=== PATIENT | female | born 1950 | race Caucasian/White ===

== ENCOUNTER 2022-11-02 08:59 | Outpatient (OUT) | payer MEDICARE, SELFPAY ==
--- NOTE | 2022-11-02 09:12 | XR_ITS ---
The [address] [address] Patient Name: SHERRI DUNN MRN: [id number] date: 1950 Sex: F Assigned Patient Location: MAMMO Current Patient Location: [facility] Accession/Order Number: [id number] Exam Date: 11/02/2022 09:29 Report Date: 11/02/2022 13:53 At the request of: SHAIKH VINCE Procedure: XR hip RT min 2V PROCEDURE: XR hip RT min 2V HISTORY: Right Hip Pain, M25.551 ; chronic low back and right hip pain which has increased in severity COMPARISON: None. FINDINGS: BONES:Mild articular surface irregularity of the acetabulum and mild sclerosis without significant joint space narrowing. Small degenerative osteophyte along superior rim of acetabulum, with large degenerative osteophyte along inferior rim. Unremarkable femoral head and proximal femur. SOFT TISSUES:No visible soft tissue swelling. EFFUSION:None visible. OTHER: Negative. IMPRESSION: 1. Degenerative changes of the right hip joint. Electronically authenticated by: RAAD MEADOWS Date: 11/02/2022 13:53
--- NOTE | 2022-11-02 09:12 | MM_ITS ---
Patient: SHERRI DUNN Exam Date: 11/02/2022 : 1950 Gender:F Ordering : Shaikh Denise Ramirez . Admission #: [id number] Family : Order #: [id number] CLICK HERE TO VIEW EXAM RADIOLOGY REPORT PROCEDURE: MM TOMOSYNTHESIS SCREENING BI COMPARISON: MG MAMM SCREEN 3D TERESA CAD, 10/27/2021. INDICATIONS: Screening Calculator Name NCI Breast Cancer Risk Assessment Tool 5 Year Breast Cancer Risk 1.30% Lifetime Breast Cancer Risk 3.50% Personal Breast Cancer No Personal Ovarian Cancer No Treatments None Family Cancers None LOCATION: The [facility] BREAST COMPOSITION: Scattered areas fibroglandular density. FINDINGS: DIAGNOSTIC CATEGORY 2--BENIGN FINDING: RIGHT BREAST: No significant suspicious finding. Scattered benign-appearing calcifications are present. Scattered benign-appearing lymph nodes are present. No significant change has occurred. LEFT BREAST: No significant suspicious finding. Scattered benign-appearing calcifications are present. Scattered benign-appearing lymph nodes are present. No significant change has occurred. RECOMMENDATIONS: ROUTINE MAMMOGRAM AND CLINICAL EVALUATION IN 12 MONTHS. PLEASE NOTE: A NORMAL MAMMOGRAM DOES NOT EXCLUDE THE POSSIBILITY OF BREAST CANCER. A CLINICALLY SUSPICIOUS PALPABLE LUMP SHOULD BE BIOPSIED. Dictated by: Clyde Lazcano M.D. on 11/02/2022 at 12:53 Approved by: Clyde Lazcano M.D. on 11/02/2022 at 13:00
--- NOTE | 2022-11-02 09:12 | XR_ITS ---
The [address] [address] Patient Name: SHERRI DUNN MRN: [id number] date: 1950 Sex: F Assigned Patient Location: MAMMO Current Patient Location: MAMM Accession/Order Number: [id number] Exam Date: 11/02/2022 09:29 Report Date: 11/02/2022 11:06 At the request of: SHAIKH VINCE Procedure: XR lumbar spine 2-3V EXAM: XR lumbar spine 2-3V HISTORY: Low Back Pain, M54.50 COMPARISON: None. TECHNIQUE: 3 views Findings/impression: Anterolisthesis of L5 over S1 by 6 m with probable pars defect. Maintained vertebral body heights. Multilevel disc space disease and endplate degenerative changes. Nonobstructive bowel gas pattern. Electronically authenticated by: SEJAL MAGALLON Date: 11/02/2022 11:06
[2022-11-02 10:51] LABS: Alanine Aminotransferase 23 U/L (14-59); Albumin Level 3.3 g/dL (3.4-5.0); Alkaline Phosphatase 79 U/L (46-116); Anion Gap 11.7; Aspartate Amino Transferase 13 U/L (15-37); BUN Creatinine Ratio 11.5; Bilirubin Total 0.4 mg/dL (0.2-1.0); Calcium 9.2 mg/dL (8.5-10.1); Carbon Dioxide 27.6 mmol/L (21.0-32.0); Chloride 104 mmol/L (98-107); Cholesterol 144 mg/dL (<=200); Estimated GFR (African America >60 (>=60); Estimated GFR (Non-African Ame >60 (>=60); Globulin 3.4 g/dL; Glucose 93 mg/dL (74-106); HDL Cholesterol 48 mg/dL (40-60); LDL Cholesterol Calculated 76.8 mg/dL; Potassium 4.3 mmol/L (3.5-5.1); Sodium 139 mmol/L (136-145); Total Protein 6.7 g/dL (6.4-8.2); Triglycerides 96 mg/dL (<=150); VLDL CHOLESTEROL 19.2 mg/dL
[2022-11-02 11:27] LABS: Basophils Percent Auto 0.4 % (0.2-2.0); Eosinophils Absolute Auto 0.1 10^3/uL (0.0-0.7); Eosinophils Percent Auto 1.4 % (0.9-7.0); Hematocrit 40.6 % (36.0-48.0); Hemoglobin 13.6 g/dL (12.0-16.0); Immature Granulocytes Abs Auto 0.02 10^3/uL (0.00-0.03); Immature Granulocytes Pct Auto 0.3 % (0.0-0.5); Lymphocytes Absolute Auto 2.1 10^3/uL (1.2-3.8); Lymphocytes Percent Auto 26.6 % (20.5-60.0); Mean Corpuscular HGB Conc 33.5 g/dL (29.9-35.2); Mean Corpuscular Hemoglobin 30.7 pg (26.7-34.0); Mean Corpuscular Volume 91.6 fL (81.0-99.0); Mean Platelet Volume 11.4 fL (9.5-13.5); Monocytes Absolute Auto 0.5 10^3/uL (0.3-0.8); Monocytes Percent Auto 6.2 % (1.7-12.0); Neutrophils Absolute Auto 5.1 10^3/uL (1.4-6.5); Neutrophils Percent Auto 65.1 % (43.0-75.0); Platelet Count 239 10^3/uL (150-450); Red Blood Count 4.43 10^6/uL (4.20-5.40); Red Cell Distribution Width 13.7 % (11.0-15.0); White Blood Count 7.9 10^3/uL (4.0-11.0)
== END 2022-11-02 09:00 ==
LOC: MAMMO 09:04
PROVIDERS: PCP Internal Medicine; Visit Provider Internal Medicine
DX: Z12.31 Encounter for screening mammogram for malignant neoplasm of breast (principal); M25.551 Pain in right hip; M54.50 Low back pain, unspecified; I10 Essential (primary) hypertension; E78.5 Hyperlipidemia, unspecified; G25.81 Restless legs syndrome; G25.3 Myoclonus
CPT/HCPCS: 36415; 72100; 73502; 77063; 77067; 80053; 80061; 82728; 85025

== ENCOUNTER 2022-11-16 14:46 | Outpatient (RCR) | payer MEDICARE, SELFPAY | END 2022-12-03 11:08 | disposition home or self-care (01) | LOC: PT 14:46 | PROVIDERS: PCP Internal Medicine; Visit Provider Internal Medicine | DX: M54.50 Low back pain, unspecified (principal) | CPT/HCPCS: 97110; 97140; 97161 ==

== ENCOUNTER 2022-11-29 10:01 | Emergency (ER) | payer MEDICARE, SELFPAY ==
[2022-11-29 10:06] VITALS: BP 122/83; PULSE 76; RESP 18; TEMP 36.7; O2SAT 96; BMI 25.6
--- NOTE | 2022-11-29 10:19 | PC.NURSE ---
pt states she was working by her shed last week and thinks she got into a spider nest and had multiple bites to her hands and feet. pt states taking Benadryl with no relief. bilateral hands and feet appear red. pt states hands and feet are itching and painful
--- NOTE | 2022-11-29 10:34 | ED_ITS ---
HPI - General Adult General Chief complaint: Skin/Abscess/Foreign Body Stated complaint: SPIDER BITE Time Seen by Provider: 11/29/22 10:27 Source: patient Mode of arrival: walk-in History of Present Illness HPI narrative: patient here for evaluation of a skin rash. She says she's had well over a week. Involves only her hands palmar and dorsal surface and her feet again the dorsal and plantar surface. Does not have any other rash any place on her body. She has no sores inside her mouth or lips or tongue. She doesn't feel sick. She doesn't have fever aches pains chills or arthralgias. She says these itch terribly. She said she had same thing happen about a year or so ago when she was bitten by a spider. She does not have a specific event of being bit by a spider this time but that's what she thinks it is. Related Data Allergies Allergy/AdvReac Type Severity Reaction Status Date / Time codeine AdvReac Severe Verified 11/29/22 10:10 Penicillins AdvReac Severe Verified 11/29/22 10:10 PFSH PFS Social History Smoking status: Current every day smoker Exam Narrative Exam Narrative: well-hydrated no well-nourished does not appear ill vital signs are stable. Problem focus examination the skin as noted below under extremity Constitutional Vital Signs - 24 hr 11/29/22 10:06 Temperature 98.0 F Pulse Rate [Monitor] 76 Respiratory Rate 18 Blood Pressure [Right Arm] 122/83 H Pulse Oximetry 96 Oxygen Delivery Method Room Air Extremity Other: on both the top and bottom of both hands and both feet there is an erythematous irregular defined asymmetrically distributed non-raised, blanching, nontender rash. There is no petechiae or purpura. There is no evidence of cellulitis or skin infection. There is no target lesions. All these areas as I said are nontender and not raised and blanching. Course Vital Signs Vital signs: Vital Signs Temperature 98.0 F 11/29/22 10:06 Pulse Rate 76 11/29/22 10:06 Respiratory Rate 18 11/29/22 10:06 Blood Pressure 122/83 H 11/29/22 10:06 Pulse Oximetry 96 11/29/22 10:06 Oxygen Delivery Method Room Air 11/29/22 10:06 Temperature 98.0 F 11/29/22 10:06 Pulse Rate 76 11/29/22 10:06 Respiratory Rate 18 11/29/22 10:06 Blood Pressure 122/83 H 11/29/22 10:06 Pulse Oximetry 96 11/29/22 10:06 Oxygen Delivery Method Room Air 11/29/22 10:06 Medical Decision Making MDM Narrative Medical decision making narrative: he should with well over one week rash on her hands and feet, unusual in character but with extreme pruritus is most consistent with an ALLERGIC reac tion. I believe she indicated that steroids helped the last time. She does not need any antibiotics for this. Discharge Plan Discharge Chief Complaint: Skin/Abscess/Foreign Body Clinical Impression: Allergic dermatitis Patient Disposition: Home, Self-Care Time of Disposition Decision: 10:37 Instructions: Acute Rash (ED) Additional Instructions: Medrol Nazario cold compresses follow-up with dermatology Stand Alone Forms: Portal Instructions Referrals: Shaikh Ramirez MD [Primary Care Provider] - 1 week
[2022-11-29] MEDS: METHYLPREDNISOLONE SOD SUCC PF 125 MG/2 ML VIAL 60 MG IM (10:48)
== END 2022-11-29 10:54 | disposition home or self-care (01) ==
PROVIDERS: Emergency Provider Emergency Medicine Emergency Medical Services; PCP Internal Medicine
DX: L23.9 Allergic contact dermatitis, unspecified cause (principal); F17.210 Nicotine dependence, cigarettes, uncomplicated
CPT/HCPCS: 96372; 99284; J2930

== ENCOUNTER 2023-03-03 09:05 | Outpatient (OUT) | payer MEDICARE, SELFPAY ==
[2023-03-03 09:22] LABS: Basophils Absolute Auto 0.1 10^3/uL (0.0-0.1); Basophils Percent Auto 0.6 % (0.2-2.0); Eosinophils Absolute Auto 0.2 10^3/uL (0.0-0.7); Eosinophils Percent Auto 2.8 % (0.9-7.0); Hematocrit 41.9 % (36.0-48.0); Hemoglobin 13.8 g/dL (12.0-16.0); Immature Granulocytes Abs Auto 0.03 10^3/uL (0.00-0.03); Immature Granulocytes Pct Auto 0.4 % (0.0-0.5); Lymphocytes Absolute Auto 2.4 10^3/uL (1.2-3.8); Lymphocytes Percent Auto 30.3 % (20.5-60.0); Mean Corpuscular HGB Conc 32.9 g/dL (29.9-35.2); Mean Corpuscular Hemoglobin 30.4 pg (26.7-34.0); Mean Corpuscular Volume 92.3 fL (81.0-99.0); Mean Platelet Volume 10.4 fL (9.5-13.5); Monocytes Absolute Auto 0.5 10^3/uL (0.3-0.8); Neutrophils Absolute Auto 4.7 10^3/uL (1.4-6.5); Neutrophils Percent Auto 59.9 % (43.0-75.0); Platelet Count 247 10^3/uL (150-450); Red Blood Count 4.54 10^6/uL (4.20-5.40); Red Cell Distribution Width 13.5 % (11.0-15.0); White Blood Count 7.8 10^3/uL (4.0-11.0)
[2023-03-03 10:34] LABS: Alanine Aminotransferase 22 U/L (14-59); Albumin Globulin Ratio 1.2; Albumin Level 3.5 g/dL (3.4-5.0); Alkaline Phosphatase 74 U/L (46-116); Anion Gap 11.3; Aspartate Amino Transferase 14 U/L (15-37); BUN Creatinine Ratio 10.5; Bilirubin Total 0.5 mg/dL (0.2-1.0); Calcium 9.1 mg/dL (8.5-10.1); Carbon Dioxide 26.6 mmol/L (21.0-32.0); Chloride 100 mmol/L (98-107); Estimated GFR (African America >60 (>=60); Estimated GFR (Non-African Ame 58 (>=60); Globulin 2.9 g/dL; Glucose 75 mg/dL (74-106); Potassium 3.9 mmol/L (3.5-5.1); Sodium 134 mmol/L (136-145); Total Protein 6.4 g/dL (6.4-8.2)
== END 2023-03-03 09:06 | disposition home or self-care (01) ==
LOC: LAB 09:06
PROVIDERS: PCP Internal Medicine; Visit Provider Internal Medicine
DX: I10 Essential (primary) hypertension (principal)
CPT/HCPCS: 36415; 80053; 85025

== ENCOUNTER 2023-03-10 09:34 | Outpatient (OUT) | payer MEDICARE, SELFPAY ==
--- NOTE | 2023-03-10 | MR_ITS ---
The [place] [id number] Patient Name: SHERRI DUNN MRN: [id number] date: 1950 Sex: F Assigned Patient Location: MRI Current Patient Location: MRI Accession/Order Number: [id number] Exam Date: 03/10/2023 10:00 Report Date: 03/10/2023 15:04 At the request of: SHAIKH VINCE Procedure: MR lumbar spine wo con MR lumbar spine wo con, 03/10/2023 10:00 AM EDT INDICATION: Low back pain M54.50 COMPARISON: X-ray of lumbar spine dated 11/02/2022 TECHNIQUE: Multiplanar, multisequential MRI images of lumbar spine were obtained without contrast. FINDINGS: For dictation purposes, the lowest complete disc space in the lumbar spine considered as L5-S1. There is normal physiologic lumbar lordosis. The vertebral height is preserved. The conus medullaris is at the level of L2. No signal abnormality within the visualized spinal cord is noted. There is grade 1 anterolisthesis of L5 on S1. Level of T12-L1 is unremarkable. No neural foraminal narrowing or canal stenoses at the level of L1-L2 and L2-L3 is noted. At the level of L3-4, there are disc bulge with mild to moderate bilateral neuroforaminal narrowing and moderate canal stenosis. There is facet joint arthrosis and ligamentum flavum thickening and epidural lipomatosis at this level. At the level of L4-5, there are disc bulge with mild right and moderate left neuroforaminal narrowing and no canal stenosis. At the level of L5-S1, there are grade 1 anterolisthesis uncovering the disc with moderate right severe left neuroforaminal narrowing and no canal stenosis. The paraspinal muscles are unremarkable. MR/MR lumbar spine wo con IMPRESSION: Mild degenerative changes of lumbar spine in particular at L3-L4 and L5-S1. Electronically authenticated by: NALLELY DUFF Date: 03/10/2023 15:04
== END 2023-03-10 09:35 | disposition home or self-care (01) ==
LOC: MRI 09:35
PROVIDERS: PCP Internal Medicine; Visit Provider Internal Medicine
DX: M54.50 Low back pain, unspecified (principal); M47.816 Spondylosis without myelopathy or radiculopathy, lumbar region; M47.817 Spondylosis without myelopathy or radiculopathy, lumbosacral region
CPT/HCPCS: 72148

== ENCOUNTER 2023-05-18 09:01 | Outpatient (OUT) | payer MEDICARE, SELFPAY ==
--- NOTE | 2023-05-18 | ECG_ITS ---
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
--- NOTE | 2023-05-18 09:25 | CA_ITS ---
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1950 Requested By: [id number] Order Number: [id number] Reading MD: HELGA LEE Interpretive Statements Predominant rhythm is sinus with average rate of 77 bpm w/ intermittent atrial 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 Tachycardia - max rate of 189 bpm (associated with atrial 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) - 1 episode of PSVT w/ duration of 3 beats Bradycardia - min rate of 56 bpm - longest episode of 14sec with rates between 56-60 bpm Ventricular ectopy - 216 total (<1%) - 184 PVC - 6 couplets - 10 bigeminy NSVT - 1 episode of 16 beat duration Patient triggered events: 1 - associated with chest pain - associated with NSR Impression: Predominant rhythm is sinus with average rate of 77 bpm w/ intermittent atrial 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 Fastest rate of 189 bpm (associated with atrial 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) and slowest rate of 56 bpm 184 PVC, 6 couplets, 10 bigeminy 1 episode of NSVT of 16 beat duration Atrial 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 intermittent of 9% burden No blocks or pauses Electronically Signed On 05-30-2023 17:55:39 EST by HELGA LEE
== END 2023-05-18 09:02 | disposition home or self-care (01) ==
LOC: CARD 09:02
PROVIDERS: PCP Internal Medicine; Visit Provider Internal Medicine
DX: I49.9 Cardiac arrhythmia, unspecified (principal); R00.2 Palpitations
CPT/HCPCS: 93005; 93242

== ENCOUNTER 2023-05-24 07:44 | Outpatient (OUT) | payer MEDICARE, SELFPAY ==
--- NOTE | 2023-05-24 07:48 | CT_ITS ---
The [address] [address] Patient Name: SHERRI DUNN MRN: [id number] date: 1950 Sex: F Assigned Patient Location: CT Current Patient Location: CT Accession/Order Number: [id number] Exam Date: 05/24/2023 07:55 Report Date: 05/24/2023 08:25 At the request of: SHAIKH VINCE Procedure: CT lung screening low-dose EXAMINATION: CT lung screening low-dose HISTORY: screening for lung cancer Z12.2 COMPARISON: No relevant comparison available. TECHNIQUE: Axial, Coronal, and Sagittal images were created without the administration of IV contrast material. Dose reduction techniques were achieved by using automated exposure control and/or adjustment of mA and/or kV according to patient size and/or use of iterative reconstruction technique. FINDINGS: LUNGS: A few small granulomas. Mild emphysematous changes. PLEURA: No mass, effusion, or pneumothorax. VASCULATURE: No abnormality. YNES: Calcified lymph nodes compatible with chronic granulomatous disease. MEDIASTINUM: A few calcified lymph nodes. CARDIAC: No enlargement, pericardial thickening, or significant calcification. AORTA: No aneurysm or dissection. CHEST WALL: No mass or axillary adenopathy BONES: No bone lesion or fracture. LIMITED ABDOMEN: No suspicious findings. Limited images of the upper abdomen. OTHER: Negative. CT/CT lung screening low-dose IMPRESSION: 1. Lung-RADS 2- Benign Appearance or Behavior. Nodules with a very low likelihood of becoming a clinically active cancer due to size or lack of growth. Follow-up CT Chest in 1 year. Electronically authenticated by: RAAD MEADOWS Date: 05/24/2023 08:25
== END 2023-05-24 07:45 | disposition home or self-care (01) ==
LOC: CT 07:44
PROVIDERS: PCP Internal Medicine; Visit Provider Internal Medicine
DX: F17.210 Nicotine dependence, cigarettes, uncomplicated (principal); Z12.2 Encounter for screening for malignant neoplasm of respiratory organs
CPT/HCPCS: 71271

== ENCOUNTER 2023-06-14 07:57 | Outpatient (OUT) | payer MEDICARE, SELFPAY ==
--- OUTSIDE RECORDS SUMMARY | 2023-06-14 08:00 | XMS_ITS | CCD ---
Author Name Unknown Address [id number] [place] [address] Organization [facility] Care Team Providers Care Street Cleaner Name Role Phone TierrareneDede Unavailable Jaime Paulino Unavailable Gume Ziegler Unavailable DO Gume Ziegler Attending Provider MD Nevin Ramirez Primary Care Provider DO Gabriel Qiu Attending Provider FAWWAD, ROONEY H Admitting Unavailable FAWWAD, ROONEY H Attending Unavailable DR GUME PHILLIPS V Consulting Unavailable FAWWAD, ROONEY H Primary Care Unavailable FAWWAD, ROONEY H Consulting Unavailable FAWWAD, ROONEY H Admitting Unavailable FAWWAD, ROONEY H Attending Unavailable FAWWAD, ROONEY H Primary Care Unavailable FAWWAD, ROONEY H Consulting Unavailable FAWWAD, ROONEY H Admitting Unavailable FAWWAD, ROONEY H Consulting Unavailable FAWWAD, ROONEY H Attending Unavailable FAWWAD, ROONEY H Primary Care Unavailable SARMAD, DR FARR Attending Unavailable SARMAD, DR FARR Consulting Unavailable DR YORDAN BAÑUELOS Admitting Unavailable FAWWAD, ROONEY H Primary Care Unavailable JUAN WHITE Consulting Unavailable FAWWAD, ROONEY H Admitting Unavailable FAWWAD, ROONEY H Attending Unavailable FAWWAD, ROONEY H Consulting Unavailable FAWWAD, ROONEY H Primary Care Unavailable FAWWAD, ROONEY H Admitting Unavailable FAWWAD, ROONEY H Attending Unavailable FAWWAD, ROONEY H Consulting Unavailable FAWWAD, ROONEY H Primary Care Unavailable [place], [facility] Primary Care Unavailable Corinne, Gabriel Attending Unavailable Laffapriyanka, Gabriel Admitting Unavailable [place], [facility] Primary Care Unavailable Corinne, Gabriel Attending Unavailable Laffay, Gabriel Admitting Unavailable Hyphilippe, Gume Stark Attending Unavailable Hyphilippe, Gume Stark Admitting Unavailable [place], [facility] Primary Care Unavailable Hyphilippe, Gume Stark Attending Unavailable HykesGume Admitting Unavailable [place], [facility] Primary Care Unavailable [place], [facility] Primary Care Unavailable Daveyfapriyanka, Gabriel Attending Unavailable Laffay, Gabriel Admitting Unavailable Gracia Woodruff Unavailable [facility] RO[facility]Y Attending Unavailable [facility], ROONEY Attending Unavailable Allergies Allergy Classification Reported Allergen(s) Allergy Type Date of Onset Reaction(s) Facility (9 sources) Ciprofloxacin Drug Allergy vomiting [facility] [email or web address] Other (11 sources) Codeine Drug Allergy 11-06-19 Unknown, [facility] (11 sources) metroNIDAZOLE Drug Allergy 12-12-19 vomiting, [facility] (9 sources) Penicillin V Drug Allergy hives [facility] [email or web address] Other (3 sources) Cefaclor; Translations: [cefaclor] Drug Allergy 11-06-19 [facility] (3 sources) Dicyclomine; Translations: [dicyclomine] Drug Allergy 12-12-19 [facility] (4 sources) Penicillins; Translations: [Penicillins] Allergy to substance 11-08-19 13 [facility] (1 source) Adhesive agent Drug allergy (disorder) [facility] (1 source) Ciprofloxacin Drug Allergy 06-26-19 14 [facility] (1 source) Codeine Drug Allergy 11-08-19 13 [facility] (1 source) Latex Drug allergy (disorder) [facility] (1 source) NSAIDs Drug allergy (disorder) 04-29-20 13 [facility] (1 source) Codeine Drug Allergy 11-06-19 [facility] (1 source) metroNIDAZOLE Drug Allergy 12-12-19 [facility] Medications Current Medications Medication Drug Class(es) Dates Sig (Normalized) Sig (Original) [id number] 200 actuat albuterol 0.09 mg/actuat metered dose inhaler (11 sources) beta2-Adrenergic Agonist Start: 01-16-2021 Albuterol Sulfate (Ventolin Hfa) 90 mcg/actuation Hfa Aerosol Inhaler Active 2 PUFF INHALATION As Directed January 16, 2021 12:00am take 2 puff(s) by in halation every four hours as needed Ventolin HFA 108 (90 Base) MCG/ACT 2 puffs Inhalation every 4 hrs prn Active alendronic acid 70 mg oral tablet (11 sources) Bisphosphonate Start: 01-16-2021 take 70 mg by mouth every week Alendronate Active 70 MG PO every week January 16, 2021 12:00am amLODIPine 10 mg oral tablet (2 sources) Dihydropyridine Calcium Channel Jessie Start: 11-03-2021 take 10 mg by mouth once daily in the morning Amlodipine Active 10 MG PO Every morning November 03, 2021 12:00am Anoro Ellipta 62.5-25 MCG/INH (1 source) take 1 puff(s) by inhalation once daily Anoro Ellipta 62.5-25 MCG/INH 1 puff Inhalation Once a day Active atorvastatin 10 mg oral tablet (11 sources) HMG-CoA Reductase Inhibitor Start: 01-16-2021 take 10 mg by mouth once daily in the morning Atorvastatin Active 10 MG PO Every morning January 16, 2021 12:00am calcium carbonate 1250 mg / cholecalciferol 0.01 mg oral tablet (2 sources) Vitamin D Start: 11-03-2021 take 2 tablets by mouth twice daily Calcium Carbonate-Vitamin D3 (Oyster Shell Calcium-Vit D3) 500 mg-10 mcg (400 unit) tablet Active 2 TAB PO Twice daily November 03, 2021 12:00am cholecalciferol 0.025 mg oral tablet (2 sources) Vitamin D Start: 12-11-2021 take 1 tablet by mouth once daily in the morning Cholecalciferol (Vitamin D3) (Vitamin D3) 25 mcg (1,000 unit) Tablet Active 25 MCG PO Every morning December 11, 2021 12:00am docusate sodium 100 mg oral capsule (10 sources) Start: 12-11-2021 take 1 capsule by mouth once daily Docusate Sodium (Colace) 100 mg Capsule Active 100 MG PO Daily December 11, 2021 12:00am Start: 12-18-2020 take 1 capsule by mo ut every twelve hours Colace 100 MG 1 CAPSULE Orally TWICE A DAY for 30 day(s) Nov, Not-Taking hydrOXYzine hydrochloride 25 mg oral tablet (1 source) Antihistamine Start: 11-22-2022 take 1 tablet by mouth every eight hours as needed hydrOXYzine HCl 25 MG 1 tablet Orally q8hrs prn itching, rash for 5 days Oct, Active methylPREDNISolone 4 mg oral tablet (7 sources) Corticosteroid Start: 04-08-2021 Medrol 4 MG as directed Orally Mar, Active pantoprazole 40 mg delayed release oral tablet (13 sources) Proton Pump Inhibitor Start: 12-11-2021 take 40 mg by mouth once daily in the morning Pantoprazole Active 40 MG PO Every morning December 11, 2021 12:00am Start: 01-16-2021 End: 11-03-2021 take 40 mg by mouth once daily Pantoprazole Discontinu ed 40 MG PO Daily January 16, 2021 12:00am November 03, 2021 1:12pm pramipexole dihydrochloride 0.5 mg oral tablet (11 sources) Nonergot Dopamine Agonist Start: 01-16-2021 take 0.5 mg by mouth once daily at bedtime Pramipexole Active 0.5 MG PO Daily at bedtime January 16, 2021 12:00am predniSONE 20 mg oral tablet (1 source) Start: 11-22-2022 predniSONE 20 MG take 3 tabs daily x 3 days, then take 2 tabs daily x 3 days Orally Once a day for 6 days Oct, Active traMADol hydrochloride 50 mg oral tablet (2 sources) Opioid Agonist Start: 12-23-2021 take 0.5-1 tablets by mouth every six hours as needed for pain Tramadol (Ultram) 50 mg tablet Active 50 MG PO Q6H 30 7 December 23, 2021 12:00am 1/2 - 1 tab po q 6 hours prn pain 7 actuat umeclidinium 0.0625 mg/actuat / vilanterol 0.025 mg/actuat dry powder inhaler (10 sources) Anticholinergic , beta2-Adrenergi c Agonist Start: 01-16-2021 Umeclidinium-Nimisha nterol (Anoro Ellipta) 62.5-25 mcg/actuation blister with device Active 1 EACH INHALATION Every morning January 16, 2021 12:00am take 1 puff(s) by inhalation onc e daily Anoro Ellipta 62.5-25 MCG/INH 1 puff Inhalation Once a day Active Completed/Discontinued Medications Medication Drug Class(es) Dates Sig (Normalized) Sig (Original) ciprofloxacin 500 mg oral tablet (8 sources) Quinolone Antimicrobial Start: 12-18-2020 take 1 tablet by mouth every twelve hours Cipro 500 MG 1 tablet Orally every 12 hrs for 10 day(s) Nov, Not-Taking citric acid 75 mg/ml / magnesium oxide 21.9 mg/ml / picosulfate sodium 0.0625 mg/ml oral solution (9 sources) Calculi Dissolution Agent, Anti-coagulant Start: 01-09-2021 take 160 mL by mouth in the evening, then take 160 mL by mouth twice daily in the evening Clenpiq 10-3.5-12 MG-GM -GM/160ML 160 ML AT 3:00 PM AND 160 ML AT 9:00 PM Orally TWICE A DAY for 1 days PLEASE CHECK ALLERGIES Dec, Not-Taking colestipol hydrochloride 1000 mg oral tablet (9 sources) Bile Acid Sequestrant Start: 12-14-2017 take 2 tablets by mouth every twenty-four hours Colestipol HCl 1 GM 2 tablets Orally Once a day for 30 days Nov, Not-Taking dicyclomine hydrochloride 20 mg oral tablet (3 sources) Anticholinergic Start: 12-02-2021 take 1 tablet by mouth every eight hours Dicyclomine HCl 20 MG 1 tablet Orally Three times a day for 30 day(s) Nov, Not-Taking hydrocortisone 25 mg/ml topical cream (14 sources) Corticosteroid Start: 10-29-2021 Anusol-HC 2.5 % 1 application Rectal Twice a day for 14 days Oct, Not-Taking Start: 12-18-2020 Hydrocortisone Acetate 25 MG 1 suppository Rectal AT BEDTIME for 14 days Nov, Not-Taking lidocaine 50 mg/ml rectal cream (2 sources) Antiarrhythmic, Amide Local Anesthetic Start: 01-16-2021 End: 11-03-2021 Lidocaine (Recticare) 5 % cream Discontinued 1 APPLIC TOPICAL Four times daily January 16, 2021 1:02pm November 03, 2021 1:14pm metroNIDAZOLE 500 mg oral tablet (9 sources) Nitroimidazole Antimicrobial Start: 12-18-2020 take 1 tablet by mouth every twelve hours metroNIDAZOLE 500 MG 1 tablet Orally TWICE A DAY for 10 day(s) Nov, Not-Taking omeprazole 40 mg delayed release oral capsule (2 sources) Proton Pump Inhibitor Start: 11-03-2021 End: 12-11-2021 take 40 mg by mouth once daily Omeprazole Discontinued 40 MG PO Daily November 03, 2021 12:00am December 11, 2021 8:23am Triamcinolone (15 sources) Corticosteroid Start: 03-11-2021 Kenalog -40 mg Feb, 20 mg Start: 12-31-2019 Kenalog -40 mg Dec, 40 mg Start: 04-23-2019 Kenalog -40 mg Mar, 40 mg Problems Active Problems Problem Classification Problem Date Documented Da te Episodic/Chronic Abdominal pain (14 sources) Abdominal pain; Translations: [Unspecified abdominal pain] Onset: 11-05-2021 11-05-2021 Episodic Acute and unspecified renal failure (1 source) Acute kidney failure, unspecified; Translations: [ACUTE KIDNEY FAILURE UNSPECIFIED] Onset: 02-01-2022 Episodic Allergic reactions (1 source) Idiopathic urticaria Episodic Conditions associated with dizziness or vertigo (4 sources) Dizziness and giddiness; Translations: [DIZZINESS AND GIDDINESS] Onset: 01-28-2022 Episodic Disorders of lipid metabolism (1 source) Hyperlipidemia, unspecified; Translations: [HYPERLIPIDEMIA UNSPECIFIED] Onset: 10-16-2021 Chronic Diverticulosis and diverticulitis (18 sources) Diverticulosis of sigmoid colon; Translations: [Diverticulosis of large intestine without perforation or abscess without bleeding] Chronic Essential hypertension (4 sources) Essential (primary) hypertension; Translations: [ESSENTIAL PRIMARY HYPERTENSION] Onset: 04-07-2022 Chronic Fluid and electrolyte disorders (1 source) Dehydration; Translations: [DEHYDRATION] Onset: 02-01-2022 Episodic Hemorrhoids (2 sources) Hemorrhoids; Translations: [Unspecified hemorrhoids] 12-23-2021 Episodic Osteoarthritis (20 sources) Arthritis of left wrist; Translations: [Primary osteoarthritis, left wrist] Onset: 03-11-2021 Resolved: 05-06-2021 Chronic Other aftercare (1 source) Other long goods drier (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 therapy; Translations: [[employer] 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 WRITER CURRENT DRUG THERAPY] Onset: 02-01-2022 Episodic Other and unspecified benign neoplasm (9 sources) History of polyp of colon; Translations: [Personal history of colonic polyps] Episodic Other and unspecified benign neoplasm (9 sources) Tubular adenoma of colon; Translations: [Benign neoplasm of colon, unspecified] Episodic Other gastrointestinal disorders (9 sources) Irritable bowel syndrome with diarrhea; Translations: [Irritable bowel syndrome with diarrhea] Chronic Other gastrointestinal disorders (9 sources) Constipation; Translations: [Constipation, unspecified] Episodic Other hereditary and degenerative nervous system conditions (1 source) Restless legs syndrome; Translations: [RESTLESS LEGS SYNDROME] Onset: 10-16-2021 Chronic Other hereditary and degenerative nervous system conditions (1 source) Myoclonus; Translations: [MYOCLONUS] Onset: 10-16-2021 Chronic Unclassified (1 source) Encounter for preprocedural laboratory examination; Translations: [Encounter for preprocedural laboratory examination] Onset: 12-21-2021 Unclassified (1 source) Z01.812 - Encounter for preprocedural laboratory examination; Translations: [Z01.812 - Encounter for preprocedural laboratory examination] Onset: 11-03-2021 Past or Other Problems Problem Classification Problem Date Documented Da te Episodic/Chronic Gastrointestinal hemorrhage (7 sources) Melena; Translations: [Hematochezia] Onset: 10-28-2021 Resolved: 10-28-2021 Episodic Other circulatory disease (4 sources) Elevated blood-pressure reading, without diagnosis of hypertension; Translations: [ELEVATED BP READING W/O DX HTN] Onset: 10-13-2021 Episodic Other connective tissue disease (3 sources) Radial styloid tenosynovitis [de Quervain]; Translations: [De Quervain's tenosynovitis, left M65.4] Onset: 03-11-2021 Resolved: 05-06-2021 Episodic Other gastrointestinal disorders (1 source) Personal history of other diseases of the digestive system; Translations: [Personal history of other diseases of the digestive system] Onset: 11-05-2021 Episodic Other non-traumatic joint disorders (3 sources) Pain in left wrist; Translations: [Left wrist pain M25.532] Onset: 03-11-2021 Resolved: 05-06-2021 Episodic Other screening for suspected conditions (not mental disorders or infectious disease) (4 sources) Encounter for screening mammogram for malignant neoplasm of breast; Translations: [ENC SCR MAMMO MALIG NEOPLASM BREAST] Onset: 10-27-2021 Episodic Results Test Name Value Interpretation Reference Range Facility Patient Letter FTon 2022 Patient Letter FT March 23, 2023 SHERRI VILLA [address] [place] [address] : 1950 Dear Sherri, This is a reminder that you are due for an appointment with [facility]. Please contact our office at [phone] to schedule an appointment at your earliest convenience. Thank you, [facility] Reminderson 03-23-2023 Reminders - From: Juliane Gillis MA To: [facility] - Reminders/Recalls; Sent: 02/04/2023 13:34:26 EDT Show up: 02/04/2023 13:34:00 EDT Subject: colon recall Reminder Message 10 year recall Salam 09/22/12 first recall letter second recall letter [facility] [place] [facility] [place] [facility] [place] February 07, 2023 SHERRI VILLA [address] [place] [address] : 1950 Dear Sherri, This is a reminder that you are due for an appointment with [facility]. Please contact our office at [phone] to schedule an appointment at your earliest convenience. Thank you, [facility] Normal [facility] Patient Letter FTon 2022 Patient Letter FT September 29, 2022 SHERRI VILLA [address] [place] [address] SHERRI VILLA 1950 Dear Sherri, This is a SECOND ATTEMPT to remind you that you are due for an appointment with [facility]. Please contact our office at [phone] to schedule an appointment at your earliest convenience. Thank you, [facility] Reminderson 09-29-2022 Reminders - From: Ligia Roberts To: [facility] - Reminders/Recalls; Sent: 09/13/2022 10:56:07 EDT Show up: 09/13/2022 10:56:00 EDT Subject: Ambulatory Reminder Reminder/Recall arturo aguilar 10 year colon recall 09/19/2022 first recall letter second recall letter [facility] Patient Letter FTMCon 2022 Patient Letter FT September 13, 2022 SHERRI VILLA [address] [facility] [place] [address] SHERRI VILLA 1950 Dear Sherri, This is a reminder that you are due for an appointment with [facility]. Please contact our office at [phone] to schedule an appointment at your earliest convenience. Thank you, [facility] Normal [facility] PROF CHEM 8 (BAS METB)on Anion gap [Moles/Vol] 10.8 mmol/L Normal [facility] Comment on above: Performed By: #### B MP #### [facility] [address] [place] [address] Dr. Josef Fraire Calcium [Mass/Vol] 9.4 mg/dL Normal 8.5-10.1 [facility] Comment on above: Performed By: #### B MP #### [facility] [address] [address] [address] Josef Fraire Chloride [Moles/Vol] 104 mmol/L Normal 98-107 [facility] Comment on above: Performed By: #### B MP #### [facility] [address] [address] [address] Josef Fraire CO2 [Moles/Vol] 28.4 mmol/L Normal 21.0-32.0 [facility] Comment on above: Performed By: #### B MP #### [facility] [address] [address] [address] Josef Fraire Creatinine [Mass/Vol] 1.03 mg/dL Critically high 0.55-1.02 [facility] Comment on above: Performed By: #### B MP #### [facility] [address] [address] [address] Josef Fraire EGFR-AF MARTINIQUAIS >60 Normal >=60 [facility] Comment on above: Performed By: #### B MP #### [facility] [address] [address] [address] Josef Fraire EGFR-NON AF MARTINIQUAIS 53 mL/min/1.73m2 Critically low >=60 [facility] Comment on above: Performed By: #### B MP #### [facility] [address] [place] [address] Dr. Josef Fraire Glucose [Mass/Vol] 82 mg/dL Normal 74-106 [facility] Comment on above: Performed By: #### B MP #### [facility] [address] [address] [address] Josef Fraire Potassium [Moles/Vol] 4.2 mmol/L Normal 3.5-5.1 [facility] Comment on above: Performed By: #### B MP #### [facility] [address] [address] [address] Josef Fraire Sodium [Moles/Vol] 139 mmol/L Normal 136-145 [facility] Comment on above: Performed By: #### B MP #### [facility] [address] [address] [address] Josef rFaire Urea nitrogen [Mass/Vol] 10.0 mg/dL Normal 7.0-18.0 [facility] Comment on above: Performed By: #### B MP #### [facility] [address] [place] [address] Dr. Josef Fraire Urea nitrogen/Creatinine [Mass ratio] 9.7 mg/mg Normal [facility] Comment on above: Performed By: #### B MP #### [facility] [address] [address] [address] Josef Fraire CBC AUTO DIFFon 01-28-2022 BASO # 0.1 103/ul Normal 0.0-0.1 [facility] Comment on above: Performed By: #### C BC #### [facility] [address] [address] [address] Josef Fraire Basophils/100 WBC (Bld) 0.6 % Normal 0.2-2.0 [facility] Comment on above: Performed By: #### C BC #### [facility] [address] [place] [address] Dr. Josef Fraire EO # 0.2 103/ul Normal 0.0-0.7 [facility] Comment on above: Performed By: #### C BC #### [facility] [address] [place] [address] Dr. Josef Fraire Eosinophils/100 WBC (Bld) 1.5 % Normal 0.9-7.0 [facility] Comment on above: Performed By: #### C BC #### [facility] [address] [place] [address] Dr. Josef Fraire Erythrocyte distribution width (RBC) [Ratio] 13.4 % Normal 11.0-15.0 [facility] Comment on above: Performed By: #### C BC #### [facility] [address] [place] [address] Dr. Josef Fraire Hematocrit (Bld) [Volume fraction] 43.0 % Normal 36.0-48.0 [facility] Comment on above: Performed By: #### C BC #### [facility] [address] [place] [address] Dr. Josef Fraire Hemoglobin (Bld) [Mass/Vol] 14.6 g/dL Normal 12.0-16.0 [facility] Comment on above: Performed By: #### C BC #### [facility] [address] [place] [address] Dr. Josef Fraire IG # 0.05 10e3/ul Critically high 0.00-0.03 [facility] Comment on above: Performed By: #### C BC #### [facility] [address] [place] [address] Dr. Josef Fraire IG % 0.5 % Normal 0.0-0.5 [facility] Comment on above: Performed By: #### C BC #### [facility] [address] [place] [address] Dr. Josef Fraire LYMPH # 3.1 103/ul Normal 1.2-3.8 [facility] Comment on above: Performed By: #### C BC #### [facility] [address] [place] [address] Dr. Josef Fraire Lymphocytes/100 WBC (Bld) 29.5 % Normal 20.5-60.0 [facility] Comment on above: Performed By: #### C BC #### [facility] [address] [place] [address] Dr. Josef Fraire MANUAL DIFF REQ NO Normal [facility] Comment on above: Performed By: #### C BC #### [facility] [address] [place] [address] Dr. Josef Fraire MCH (RBC) [Entitic mass] 30.0 pg Normal 26.7-34.0 [facility] Comment on above: Performed By: #### C BC #### [facility] [address] [place] [address] Dr. Josef Fraire MCHC (RBC) [Mass/Vol] 34.0 g/dL Normal 29.9-35.2 [facility] Comment on above: Performed By: #### C BC #### [facility] [address] [place] [address] Dr. Josef Fraire MCV (RBC) [Entitic vol] 88.3 fL Normal 81.0-99.0 [facility] Comment on above: Performed By: #### C BC #### [facility] [address] [place] [address] Dr. Josef Fraire MONO # 0.7 103/ul Normal 0.3-0.8 [facility] Comment on above: Performed By: #### C BC #### [facility] [address] [place] [address] Dr. Josef Fraire Monocytes/100 WBC (Bld) 6.8 % Normal 1.7-12.0 [facility] Comment on above: Performed By: #### C BC #### [facility] [address] [place] [address] Dr. Josef Fraire NEUT # 6.5 103/ul Normal 1.4-6.5 [facility] Comment on above: Performed By: #### C BC #### [facility] [address] [place] [address] Dr. Josef Fraire Neutrophils/100 WBC (Bld) 61.1 % Normal 43.0-75.0 [facility] Comment on above: Performed By: #### C BC #### [facility] [address] [place] [address] Dr. Josef Fraire Platelet mean volume (Bld) [Entitic vol] 10.7 fL Normal 9.5-13.5 [facility] Comment on above: Performed By: #### C BC #### [facility] [address] [place] [address] Dr. Josef Fraire PLT 313 103/ul Normal 150-450 [facility] Comment on above: Performed By: #### C BC #### [facility] [address] [place] [address] Dr. Josef Fraire RBC 4.87 106/ul Normal 4.20-5.40 [facility] Comment on above: Performed By: #### C BC #### [facility] [address] [place] [address] Dr. Josef Fraire WBC 10.7 103/ul Normal 4.0-11.0 [facility] Comment on above: Performed By: #### C BC #### [facility] [address] [place] [address] Dr. Josef Fraire ER URINE PROFILEon 2 Bilirubin Ql (U) Negative Normal NEGATIVE [facility] Comment on above: Performed By: #### E RUR #### [facility] [address] [place] [address] Dr. Josef Fraire Clarity (U) CLEAR Normal CLEAR [facility] Comment on above: Performed By: #### E RUR #### [facility] [address] [place] [address] Dr. Josef Fraire Color (U) LT. YELLOW Normal YELLOW [facility] Comment on above: Performed By: #### E RUR #### [facility] [address] [place] [address] Dr. Josef Fraire ERUAHD A micrscopic examination will be performed if indicated. Normal [facility] Comment on above: Performed By: #### E RUR #### [facility] [address] [place] [address] Dr. Josef Fraire Glucose Ql (U) Negative Normal NEGATIVE [facility] Comment on above: Performed By: #### E RUR #### [facility] [address] [place] [address] Dr. Josef Fraire Hemoglobin Ql (U) Negative Normal NEGATIVE [facility] Comment on above: Performed By: #### E RUR #### [facility] [address] [place] [address] Dr. Josef Fraire Ketones Ql (U) Negative Normal NEGATIVE [facility] Comment on above: Performed By: #### E RUR #### [facility] [address] [place] [address] Dr. Josef Fraire LEUKOCYTES Negative Normal NEGATIVE [facility] Comment on above: Performed By: #### E RUR #### [facility] [address] [place] [address] Dr. Josef Fraire Nitrite Ql (U) Negative Normal NEGATIVE [facility] Comment on above: Performed By: #### E RUR #### [facility] [address] [place] [address] Dr. Josef Fraire pH (U) 6.0 [pH] Normal 5-9 [facility] Comment on above: Performed By: #### E RUR #### [facility] [address] [place] [address] Dr. Josef Fraire SPEC GRAVITY <=1.005 Abnormal 1.005-<=1.025 [facility] Comment on above: Performed By: #### E RUR #### [facility] [address] [place] [address] Dr. Josef Fraire UA PROTEIN Negative Normal NEGATIVE/ TRACE [facility] Comment on above: Performed By: #### E RUR #### [facility] [address] [place] [address] Dr. Josef Fraire UR MICRO IND NOT INDICATED Normal [facility] Comment on above: Performed By: #### E RUR #### [facility] [address] [place] [address] Dr. Josef Fraire Urobilinogen Qn (U) 0.2 {Vero'U}/dL Normal 0.2 - 1. 0 [facility] Comment on above: Performed By: #### E RUR #### [facility] [address] [place] [address] Dr. Josef Fraire PROF CHEM 8 (BAS METB)on Anion gap [Moles/Vol] 14.6 mmol/L Normal [facility] Comment on above: Performed By: #### L IPID, CMP #### [facility] [address] [place] [address] Dr. Josef Fraire Calcium [Mass/Vol] 9.7 mg/dL Normal 8.5-10.1 [facility] Comment on above: Performed By: #### L IPID, CMP #### [facility] [address] [place] [address] Dr. Josef Fraire Chloride [Moles/Vol] 96 mmol/L Critically low 98-107 [facility] Comment on above: Performed By: #### L IPID, CMP #### [facility] [address] [place] [address] Dr. Josef Fraire CO2 [Moles/Vol] 25.8 mmol/L Normal 21.0-32.0 [facility] Comment on above: Performed By: #### L IPID, CMP #### [facility] [address] [place] [address] Dr. Josef Fraire Creatinine [Mass/Vol] 1.61 mg/dL Critically high 0.55-1.02 [facility] Comment on above: Performed By: #### L IPID, CMP #### [facility] [address] [address] [address] Josef Fraire EGFR-AF MARTINIQUAIS 38 mL/min/1.73m2 Critically low >=60 [facility] Comment on above: Performed By: #### L IPID, CMP #### [facility] [address] [address] [address] Josef Fraire EGFR-NON AF MARTINIQUAIS 32 mL/min/1.73m2 Critically low >=60 [facility] Comment on above: Performed By: #### L IPID, CMP #### [facility] [address] [place] [address] Dr. Josef Fraire Glucose [Mass/Vol] 119 mg/dL Critically high 74-106 [facility] Comment on above: Performed By: #### L IPID, CMP #### [facility] [address] [place] [address] Dr. Josef Fraire Potassium [Moles/Vol] 3.4 mmol/L Critically low 3.5-5.1 [facility] Comment on above: Result Comment: SPEC IMEN IS JUST SLIGHTLY HEMOLYZED AND SLIGHTLY LIPEMIC Performed By: #### L IPID, CMP #### [facility] [address] [place] [address] Dr. Josef Fraire Sodium [Moles/Vol] 133 mmol/L Critically low 136-145 [facility] Comment on above: Performed By: #### L IPID, CMP #### [facility] [address] [place] [address] Dr. Josef Fraire Urea nitrogen [Mass/Vol] 22.0 mg/dL Critically high 7.0-18.0 [facility] Comment on above: Performed By: #### L IPID, CMP #### [facility] [address] [place] [address] Dr. Josef Fraire Urea nitrogen/Creatinine [Mass ratio] 13.7 mg/mg Normal [facility] Comment on above: Performed By: #### L IPID, CMP #### [facility] [address] [address] [address] Josef Fraire TROPONIN, HIGH SENSITIVITYon 01-28-2022 HSTROP 8.3 pg/mL Normal 4.0-51.3 [facility] Comment on above: Result Comment: CUT- OFF POINTS HAVE BEEN ESTABLISHED BASED ON THE FOURTH UNIVERSAL DEFINITIONS OF MYOCARDIAL INFARCTION. THE UPPER REFERENCE LIMIT (URL) OF TROPONIN, DEFINED THE 99TH PERCENTILE OF cTnI DISTRIBUTION IN A REFERENCE POPULATION, HAS BEEN CONFIRMED THE DECISION THRESHOLD FOR PR DIAGNOSIS. Performed By: #### L IPID, CMP #### [facility] [address] [address] [address] Josef Fraire PROF CHEM 8 (BAS METB)on Anion gap [Moles/Vol] 14.6 mmol/L Normal [facility] Comment on above: Performed By: #### B MP #### [facility] [address] [address] [address] Josef Fraire Calcium [Mass/Vol] 10.6 mg/dL Critically high 8.5-10.1 [facility] Comment on above: Performed By: #### B MP #### [facility] [address] [address] [address] Josef Fraire Chloride [Moles/Vol] 97 mmol/L Critically low 98-107 [facility] Comment on above: Performed By: #### B MP #### [facility] [address] [address] [address] Josef Fraire CO2 [Moles/Vol] 29.5 mmol/L Normal 21.0-32.0 [facility] Comment on above: Performed By: #### B MP #### [facility] [address] [place] [address] Dr. Josef Fraire Creatinine [Mass/Vol] 1.34 mg/dL Critically high 0.55-1.02 [facility] Comment on above: Performed By: #### B MP #### [facility] [address] [place] [address] Dr. Josef Fraire EGFR-AF MARTINIQUAIS 47 mL/min/1.73m2 Critically low >=60 [facility] Comment on above: Performed By: #### B MP #### [facility] [address] [place] [address] Dr. Josef Fraire EGFR-NON AF MARTINIQUAIS 39 mL/min/1.73m2 Critically low >=60 [facility] Comment on above: Performed By: #### B MP #### [facility] [address] [address] [address] Josef Fraire Glucose [Mass/Vol] 88 mg/dL Normal 74-106 [facility] Comment on above: Performed By: #### B MP #### [facility] [address] [address] [address] Josef Fraire Potassium [Moles/Vol] 4.1 mmol/L Normal 3.5-5.1 [facility] Comment on above: Performed By: #### B MP #### [facility] [address] [address] [address] Josef Fraire Sodium [Moles/Vol] 137 mmol/L Normal 136-145 [facility] Comment on above: Performed By: #### B MP #### [facility] [address] [address] [address] Josef Fraire Urea nitrogen [Mass/Vol] 22.0 mg/dL Critically high 7.0-18.0 [facility] Comment on above: Performed By: #### B MP #### [facility] [address] [address] [address] Josef Fraire Urea nitrogen/Creatinine [Mass ratio] 16.4 mg/mg Normal [facility] Comment on above: Performed By: #### B MP #### [facility] [id number] Josef Fraire PROF CHEM 8 (BAS METB)on Anion gap [Moles/Vol] 9.5 mmol/L Normal [facility] Comment on above: Performed By: #### B MP #### [facility] [address] [place] [address] Dr. Josef Fraire Calcium [Mass/Vol] 9.1 mg/dL Normal 8.5-10.1 [facility] Comment on above: Performed By: #### B MP #### [facility] [address] [address] [address] Josef Fraire Chloride [Moles/Vol] 96 mmol/L Critically low 98-107 [facility] Comment on above: Performed By: #### B MP #### [facility] [address] [place] [address] Dr. Josef Fraire CO2 [Moles/Vol] 32.5 mmol/L Critically high 21.0-32.0 [facility] Comment on above: Performed By: #### B MP #### [facility] [address] [place] [address] Dr. Josef Fraire Creatinine [Mass/Vol] 0.76 mg/dL Normal 0.55-1.02 [facility] Comment on above: Performed By: #### B MP #### [facility] [address] [place] [address] Dr. Josef Fraire EGFR-AF MARTINIQUAIS >60 Normal >=60 [facility] Comment on above: Performed By: #### B MP #### [facility] [address] [place] [address] Dr. Josef Fraire EGFR-NON AF MARTINIQUAIS >60 Normal >=60 [facility] Comment on above: Performed By: #### B MP #### [facility] [address] [place] [address] Dr. Josef Fraire Glucose [Mass/Vol] 95 mg/dL Normal 74-106 [facility] Comment on above: Performed By: #### B MP #### [facility] [address] [place] [address] Dr. Josef Fraire Potassium [Moles/Vol] 3.0 mmol/L Critically low 3.5-5.1 [facility] Comment on above: Performed By: #### B MP #### [facility] [address] [place] [address] Dr. Josef Fraire Sodium [Moles/Vol] 135 mmol/L Critically low 136-145 [facility] Comment on above: Performed By: #### B MP #### [facility] [address] [place], [place] [address] Dr. Josef Fraire Urea nitrogen [Mass/Vol] 9.0 mg/dL Normal 7.0-18.0 [facility] Comment on above: Performed By: #### B MP #### [facility] [address] [place], [place] [address] Dr. Josef Fraire Urea nitrogen/Creatinine [Mass ratio] 11.8 mg/mg Normal [facility] Comment on above: Performed By: #### B MP #### [facility] [address] [place], [place] [address] Dr. Josef Fraire COVID-19 [facility] 12-21-2021 SARS-CoV-2 (COVID-19) RNA CHRIS+probe Ql (Unsp spec) Negative Normal Negative [facility] Comment on above: Order Comment: Healt hcare Worker?: N Result Comment: Testing for SARS-CoV-2 by RT-PCR This test was developed and its performance characteristics determined by [employer] and validated at the [facility]. This test has not been FDA cleared or approved. This test has been authorized by FDA under an Emergency Use Authorization (EUA). This test has been validated in accordance with the FDA's Guidance Document (Policy for Diagnostics Testing in Laboratories Certified to Perform High Complexity Testing under CLIA prior to Emergency Use Authorization for Coronavirus Disease-2019 during the Public Health Emergency) issued on August 30, 2019. This test is only authorized for the duration of time the declaration that circumstances exist justifying the authorization of the emergency use of in vitro diagnostic tests for detection of SARS-CoV-2 virus and/or diagnosis of COVID-19 infection under section 564(b)(1) of the Act, 21 U.S.C. 360bbb-3(b)(1), unless the authorization is terminated or revoked sooner. PERFORMED BY: [place] [address] PATHOLOGIST SMUDGER JOSUÉ LEE M.D. Performed By: #### C OVID 19 [facility] [place] #### [address] COVID-19 Positive/NegativeOr dered By: Gabriel Qiu on 12-21-2021 SARS-CoV-2 (COVID-19) N gene CHRIS+probe Ql (Resp) Negative Negative [facility] Comment on above: Testing for SARS-CoV -2 by RT-PCR This test was developed and its performance characteristics determined by [employer] and validated at the [facility]. This test has not been FDA cleared or approved. This test has been authorized by FDA under an Emergency Use Authorization (EUA). This test has been validated in accordance with the FDA's Guidance Document (Policy for Diagnostics Testing in Laboratories Certified to Perform High Complexity Testing under CLIA prior to Emergency Use Authorization for Coronavirus Disease-2019 during the Public Health Emergency) issued on August 30, 2019. This test is only authorized for the duration of time the declaration that circumstances exist justifying the authorization of the emergency use of in vitro diagnostic tests for detection of SARS-CoV-2 virus and/or diagnosis of COVID-19 infection under section 564(b)(1) of the Act, 21 U.S.C. 360bbb-3(b)(1), unless the authorization is terminated or revoked sooner. Basic Metabolic Panelon 11-27 Calcium [Mass/Vol] 9.7 mg/dL Normal 8.2-10.2 [facility] Comment on above: Result Comment: PERF ORMED BY: [place] [address] PATHOLOGIST SMUDGER JOSUÉ LEE M.D. Performed By: #### C BC, BMP #### [facility] [address] [place] [address] [place] Chloride [Moles/Vol] 104 mmol/L Normal 95-114 [facility] Comment on above: Performed By: #### C BC, BMP #### [facility] [address] [place] [address] [place] CO2 [Moles/Vol] 26.9 mmol/L Normal 22.0-30.0 [facility] Comment on above: Performed By: #### C BC, BMP #### [facility] [address] Creatinine [Mass/Vol] 0.71 mg/dL Normal 0.44-1.03 [facility] Comment on above: Performed By: #### C BC, BMP #### [address] Estimated GFR ( Juliette > 60 Normal [facility] Comment on above: Result Comment: GFR estimated reference range: According to KDOQI guidelines, <60 ml/min/1.73m2 is sufficient to diagnose a patient with chronic kidney disease. Performed By: #### C BC, BMP #### [address] Estimated GFR (Non- Am > 60 Normal [facility] Comment on above: Performed By: #### C BC, BMP #### [address] Glucose [Mass/Vol] 81 mg/dL Normal 70-100 [facility] Comment on above: Result Comment: [place] om Glucose Reference Range is dependent on time and content of last meal. Glucose of more than 200 mg/dL in a nonstressed, ambulatory subject supports the diagnosis of Diabetes Mellitus. ADA recommended reference range Performed By: #### C BC, BMP #### [address] Potassium [Moles/Vol] 4.1 mmol/L Normal 3.5-5.1 [facility] Comment on above: Performed By: #### C BC, BMP #### [address] Sodium [Moles/Vol] 138 mmol/L Normal 136-146 [facility] Comment on above: Performed By: #### C BC, BMP #### [address] Urea nitrogen [Mass/Vol] 7 mg/dL Low 9-23 [facility] Comment on above: Performed By: #### C BC, BMP #### [address] Basophils Auto (Bld) [#/Vol] Ordered By: Gabriel Qiu on 12-11-2021 Basophils (Bld) [#/Vol] 0.1 10*3/uL 0.0-0.2 [facility] Basophils/100 WBC Auto (Bld) Ordered By: Gabriel Qiu on 12-11-2021 Basophils/100 WBC (Bld) 0.9 % . [facility] Blood hemoglobin measurement (mass/volume)Ordered By: Gabriel Qiu on 12-11-2021 Hemoglobin (Bld) [Mass/Vol] 15.1 g/dL 11.8-15.4 [facility] Blood leukocytes automated c ount (number/volume)Ordered By: Gabriel Qiu on 12-11-2021 WBC (Bld) [#/Vol] 9.0 10*3/uL 4.5-11.0 [facility] Complete Blood Count Auto Di ffon 12-11-2021 Basophils (Bld) [#/Vol] 0.1 10*3/uL Normal 0.0-0.2 [facility] Comment on above: Result Comment: PERF ORMED BY: [place] [address] PATHOLOGIST SMUDGER JOSUÉ LEE M.D. Performed By: #### C AIDA, BMP #### [address] Basophils/100 WBC (Bld) 0.9 % Normal . [facility] Comment on above: Performed By: #### C AIDA, BMP #### [facility] [address] [place] [address] [place] Eosinophils (Bld) [#/Vol] 0.1 10*3/uL Normal 0.0-0.45 [facility] Comment on above: Performed By: #### C BC, BMP #### [place] [address] [place] Eosinophils/100 WBC (Bld) 1.3 % Normal . [facility] Comment on above: Performed By: #### C BC, BMP #### [address] Erythrocyte distribution width (RBC) [Ratio] 14.4 % Normal 11.9-15.3 [facility] Comment on above: Performed By: #### C BC, BMP #### [address] Hematocrit (Bld) [Volume fraction] 45.2 % Normal 34.0-46.4 [facility] Comment on above: Performed By: #### C BC, BMP #### [address] Hemoglobin (Bld) [Mass/Vol] 15.1 g/dL Normal 11.8-15.4 [facility] Comment on above: Performed By: #### C BC, BMP #### [address] Lymphocytes (Bld) [#/Vol] 1.8 10*3/uL Normal 1.00-4.8 [facility] Comment on above: Performed By: #### C BC, BMP #### [address] Lymphocytes/100 WBC (Bld) 19.7 % Normal . [facility] Comment on above: Performed By: #### C BC, BMP #### [address] MCH (RBC) [Entitic mass] 30.0 pg Normal 24.7-34.3 [facility] Comment on above: Performed By: #### C BC, BMP #### [address] MCV (RBC) [Entitic vol] 89.4 fL Normal 80-[address] [facility] Comment on above: Performed By: #### C BC, BMP #### [address] Mean Corpuscular HGB Conc 33.5 g/dL Normal 32.0-35.0 [facility] Comment on above: Performed By: #### C BC, BMP #### [address] Monocytes (Bld) [#/Vol] 0.6 10*3/uL Normal 0.0-0.8 [facility] Comment on above: Performed By: #### C BC, BMP #### [facility] [address] [place] [address] [place] Monocytes/100 WBC (Bld) 6.8 % Normal . [facility] Comment on above: Performed By: #### C BC, BMP #### [facility] [address] [place] [address] [place] Neutrophils (Bld) [#/Vol] 6.4 10*3/uL Normal 1.8-7.7 [facility] Comment on above: Performed By: #### C BC, BMP #### [facility] [address] [place] [address] [place] Neutrophils/100 WBC (Bld) 71.3 % Normal . [facility] Comment on above: Performed By: #### C BC, BMP #### [facility] [address] [place] [address] [place] Nucleated RBC/100 WBC (Bld) [Ratio] 0.0 % Normal 0-0.5 [facility] Comment on above: Performed By: #### C BC, BMP #### [facility] [address] [place] [address] [place] Platelet mean volume (Bld) [Entitic vol] 9.5 fL Normal 6.3-10.7 [facility] Comment on above: Performed By: #### C BC, BMP #### [facility] [address] [place] [address] [place] Platelets (Bld) [#/Vol] 245 10*3/uL Normal 150-450 [facility] Comment on above: Performed By: #### C BC, BMP #### [facility] [address] [place] [address] [place] RBC (Bld) [#/Vol] 5.05 10*6/uL High 3.60-5.[address] [facility] Comment on above: Performed By: #### C BC, BMP #### [facility] [address] [place] [address] [place] WBC (Bld) [#/Vol] 9.0 10*3/uL Normal 4.5-11.0 [facility] Comment on above: Performed By: #### C BC, BMP #### [address] Creatinine and Glomerular fi ltration rate.predicted panel (S/P/Bld)Ordered By: Gabriel Qiu on 12-11-2021 Creatinine [Mass/Vol] 0.71 mg/dL 0.44-1.03 [facility] ECG 12 lead ECGon 12-11-2021 ECG 12 lead ECG [facility] [place] [address] [place] [address] Electrocardiograph Report Signed Patient: Sherri Villa MR#: [id number] : 1950 Acct:[id number] Age/Sex: 71 / F ADM Date: 12/11/21 Loc: Room: Type: [facility] Attending Dr: Gabriel Qiu DO Ordering Provider: Gabriel Qiu DO Date of Service: 12/11/21 ECG/ECG 12 lead ECG: pst Copies to: Test Reason : Blood Pressure : / mmHG Vent. Rate : 080 BPM Atrial Rate : 080 BPM P-R Int : 130 ms QRS Dur : 068 ms QT Int : 396 ms P-R-T Axes : 059 009 049 degrees QTc Int : 456 ms Normal sinus rhythm Poor anterior R wave progression borderline ECG No previous ECGs available Confirmed by ALBERTO GRAY MD ([id number] on 12/11/2021 9:19:51 AM Referred By: CORINNE Electronically Signed By:ALBERTO GRAY MD Transcribed By: MUS Signed By Alberto Gray MD [id number] Normal [facility] Eosinophils Auto (Bld) [#/Vo l]Ordered By: Gabriel iQu on 12-11-2021 Eosinophils (Bld) [#/Vol] 0.1 10*3/uL 0.0-0.45 [facility] Eosinophils/100 WBC Auto (Bl d)Ordered By: Gabriel Qiu on 12-11-2021 Eosinophils/100 WBC (Bld) 1.3 % . [facility] Erythrocyte distribution wid th Auto (RBC) [Ratio]Ordered By: Gabriel Qiu on 12-11-2021 Erythrocyte distribution width (RBC) [Ratio] 14.4 % 11.9-15.3 [facility] Estimated glomerular filtrat ion rate (GFR) non- AmericanOrdered By: Gabriel Qiu on 12-11-2021 GFR/1.73 sq M.predicted among non-blacks MDRD (S/P/Bld) [Vol rate/Area] > 60 mL/Min [facility] Hematocrit Auto (Bld) [Volum e fraction]Ordered By: Gabriel Qiu on 12-11-2021 Hematocrit (Bld) [Volume fraction] 45.2 % 34.0-46.4 [facility] - Hematology and Cell countsOrdered By: Gabriel Qiu on 12-11-2021 Nucleated RBC/100 WBC (Bld) [Ratio] 0.0 % 0-0.5 [facility] Lymphocytes Auto (Bld) [#/Vo l]Ordered By: Gabriel Qiu on 12-11-2021 Lymphocytes (Bld) [#/Vol] 1.8 10*3/uL 1.00-4.8 [facility] Lymphocytes/100 WBC Auto (Bl d)Ordered By: Gabriel Qiu on 12-11-2021 Lymphocytes/100 WBC (Bld) 19.7 % . [facility] MCH Auto (RBC) [Entitic mass ]Ordered By: Gabriel Qiu on 12-11-2021 MCH (RBC) [Entitic mass] 30.0 pg 24.7-34.3 [facility] MCHC Auto (RBC) [Mass/Vol]Or dered By: Gabriel Qiu on 12-11-2021 MCHC (RBC) [Mass/Vol] 33.5 g/dL 32.0-35.0 [facility] MCV Auto (RBC) [Entitic vol] Ordered By: Gabriel Qiu on 12-11-2021 MCV (RBC) [Entitic vol] 89.4 fL 80-[address] [facility] Monocytes Auto (Bld) [#/Vol] Ordered By: Gabriel Qiu on 12-11-2021 Monocytes (Bld) [#/Vol] 0.6 10*3/uL 0.0-0.8 [facility] Monocytes/100 WBC Auto (Bld) Ordered By: Gabriel Qiu on 12-11-2021 Monocytes/100 WBC (Bld) 6.8 % . [facility] Neutrophils Auto (Bld) [#/Vo l]Ordered By: Gabriel Qiu on 12-11-2021 Neutrophils (Bld) [#/Vol] 6.4 10*3/uL 1.8-7.7 [facility] Neutrophils/100 WBC Auto (Bl d)Ordered By: Gabriel Qiu on 12-11-2021 Neutrophils/100 WBC (Bld) 71.3 % . [facility] No Panel InformationOrdered By: Gabriel Qiu on 12-11-2021 Estimated GFR () > 60 mL/Min [facility] Comment on above: GFR estimated refere nce range: According to KDOQI guidelines, <60 ml/min/1.73m2 is sufficient to diagnose a patient with chronic kidney disease. Pharmacy Creatinine Clearance (Chem N/A [facility] Platelet mean volume Auto (B ld) [Entitic vol]Ordered By: Gabriel Qiu on 12-11-2021 Platelet mean volume (Bld) [Entitic vol] 9.5 fL 6.3-10.7 [facility] Platelets Auto (Bld) [#/Vol] Ordered By: Gabriel Qiu on 12-11-2021 Platelets (Bld) [#/Vol] 245 10*3/uL 150-450 [facility] RBC Auto (Bld) [#/Vol]Ordere d By: Gabriel Qiu on 12-11-2021 RBC (Bld) [#/Vol] 5.05 10*6/uL 3.60-5.[address] [facility] Serum or plasma calcium malcom urement (mass/volume)Ordered By: Gabriel Qiu on 12-11-2021 Calcium [Mass/Vol] 9.7 mg/dL 8.2-10.2 [facility] Serum or plasma chloride andreea surement (moles/volume)Ordered By: Gabriel Qiu on 12-11-2021 Chloride [Moles/Vol] 104 mmol/L 95-114 [facility] Serum or plasma glucose malcom urement (mass/volume)Ordered By: Gabriel Qiu on 12-11-2021 Glucose [Mass/Vol] 81 mg/dL 70-100 [facility] Comment on above: ADA recommended refe rence range Random Glucose Reference Range is dependent on time and content of last meal. Glucose of more than 200 mg/dL in a nonstressed, ambulatory subject supports the diagnosis of Diabetes Mellitus. Serum or plasma potassium me asurement (moles/volume)Ordered By: Gabriel Qiu on 12-11-2021 Potassium [Moles/Vol] 4.1 mmol/L 3.5-5.1 [facility] Serum or plasma sodium measu rement (moles/volume)Ordered By: Gabriel Qiu on 12-11-2021 Sodium [Moles/Vol] 138 mmol/L 136-146 [facility] Serum or plasma total carbon dioxide measurement (moles/volume)Ordered By: Gabriel Qiu on 12-11-2021 CO2 [Moles/Vol] 26.9 mmol/L 22.0-30.0 [facility] Serum or plasma urea nitroge n measurement (mass/volume)Ordered By: Gabriel Qiu on 12-11-2021 Urea nitrogen [Mass/Vol] 7 mg/dL 9-23 [facility] COVID-19 Antigenon 2 COVID-19 Antigen Healthcare Worker?: N Reference Range: Negative Negative results, from patients with symptom onset beyond five days, should be treated as presumptive and confirmation with a molecular assay, if necessary, for patient management, may be performed. Negative results do not rule out COVID-19 and should not be used as the sole basis for treatment or patient management decisions, including infection control decisions. Negative results should be considered in the context of a patient's recent exposures, history and the presence of clinical signs and symptoms consistent with COVID-19. The Le SARS Antigen MARITZA does not differentiate between SARS-CoV and SARS-CoV-2. This test was developed and its performance characteristic determined by [employer] and validated at [facility]. This test has not been FDA cleared or approved. This test has been authorized by FDA under an Emergency Use Authorization (EUA). This test has been validated in accordance with the FDA's Guidance Document (Policy for Diagnostics Testing in Laboratories Certified to Perform High Complexity Testing under CLIA prior to Emergency Use Authorization for Coronavirus Disease-2019 during the Public Health Emergency) issued on August 30, 2019. This test is only authorized for the duration of time the declaration that circumstances exist justifying the authorization of the emergency use of in vitro diagnostic tests for detection of SARS-CoV-2 virus and/or diagnosis of COVID-19 infection under section 564(b)(1) of the Act, 21 U.S.C. 360bbb-3(b)(1), unless the authorization is terminated or revoked sooner. SARS-CoV+SARS-CoV-2 (COVID-19) Ag [Presence] in Respiratory specimen by Rapid immunoassay Negative for SARS Antigen by [facility]ITZA PERFORMED BY: [place] [address] PATHOLOGIST SMUDGER JOSUÉ LEE M.D. Normal [facility] Comment on above: Performed By: #### C OVID-19 LE, SOFIANEG #### [facility] [address] [place] [address] COVID-19 SOFIAOrdered By: Ruben Ziegler on 11-03-2021 SARS-CoV+SARS-CoV-2 (COVID-19) Ag IA.rapid Ql (Resp) Negative Negative [facility] Comment on above: This is a duplicate Le SARS Antigen (MARITZA) result to be used for statistical tracking purpose only. No Panel InformationOrdered By: Gume Ziegler on 11-03-2021 SARS Antigen (LFIA) [facility] Le Ag Negativeon 11-04-19 22 Le Ag Negative Negative Normal Negative [facility] Comment on above: Result Comment: This is a duplicate Le SARS Antigen (MARITZA) result to be used for statistical tracking purpose only. PERFORMED BY: [place] [address] PATHOLOGIST SMUDGER JOSUÉ LEE M.D. Performed By: #### C OVID-19 LE, SOFIANEG #### [facility] [address] [place] [address] MG MAMM SCREEN 3D TERESA CADon 10-27-2021 MG MAMM SCREEN 3D TERESA CAD Patient: SHERRI VILLA Exam Date: 10/27/2021 : 1950 Gender:F Ordering : SHAIKH Denise RAMIREZ . Admission #: [id number] Family : Order #: [id number] CLICK HERE TO VIEW EXAM RADIOLOGY REPORT PROCEDURE: MAMMOGRAM SCREENING 3D BILATERAL CAD COMPARISON: MG MAMM SCREEN TERESA W CAD, 10/23/2019. MG MAMM SCREEN 3D TERESA CAD, 10/24/2020. INDICATIONS: Screening mammography Calculator Name NCI Breast Cancer Risk Assessment Tool 5 Year Breast Cancer Risk 1.20% Lifetime Breast Cancer Risk 3.70% Personal Breast Cancer No Personal Ovarian Cancer No Treatments None Family Cancers None LOCATION: [facility] BREAST COMPOSITION: Scattered areas fibroglandular density. FINDINGS: DIAGNOSTIC CATEGORY 2--BENIGN FINDING. NO CHANGE FROM COMPARISON. Scattered benign-appearing nodules are present. Scattered benign-appearing calcifications are present. Scattered benign-appearing lymph nodes are present. RIGHT BREAST: No significant suspicious finding. LEFT BREAST: No significant suspicious finding. RECOMMENDATIONS: ROUTINE MAMMOGRAM AND CLINICAL EVALUATION IN 12 MONTHS. PLEASE NOTE: A NORMAL MAMMOGRAM DOES NOT EXCLUDE THE POSSIBILITY OF BREAST CANCER. A CLINICALLY SUSPICIOUS PALPABLE LUMP SHOULD BE BIOPSIED. Dictated by: Gume Phillips MD on 10/27/2021 at 14:13 Approved by: Gume Phillips MD on 10/27/2021 at 14:15 Normal [facility] CBC AUTO DIFFon 10-13-2021 BASO # 0.0 103/ul Normal 0.0-0.1 [facility] Comment on above: Performed By: #### C BC #### [facility] [address] [address] [address] Josef Fraire Basophils/100 WBC (Bld) 0.5 % Normal 0.2-2.0 [facility] Comment on above: Performed By: #### C BC #### [facility] [address] [address] [address] Josef Fraire EO # 0.2 103/ul Normal 0.0-0.7 [facility] Comment on above: Performed By: #### C BC #### [facility] [address] [place] [address] Dr. Josef Fraire Eosinophils/100 WBC (Bld) 2.4 % Normal 0.9-7.0 [facility] Comment on above: Performed By: #### C BC #### [facility] [address] [place] [address] Dr. Josef Fraire Erythrocyte distribution width (RBC) [Ratio] 13.9 % Normal 11.0-15.0 [facility] Comment on above: Performed By: #### C BC #### [facility] [address] [place] [address] Dr. Josef Fraire Hematocrit (Bld) [Volume fraction] 44.7 % Normal 36.0-48.0 [facility] Comment on above: Performed By: #### C BC #### [facility] [address] [place] [address] Dr. Josef Fraire Hemoglobin (Bld) [Mass/Vol] 14.4 g/dL Normal 12.0-16.0 [facility] Comment on above: Performed By: #### C BC #### [facility] [address] [place] [address] Dr. Josef Fraire IG # 0.03 10e3/ul Normal 0.00-0.03 [facility] Comment on above: Performed By: #### C BC #### [facility] [address] [place] [address] Dr. Josef Fraire IG % 0.4 % Normal 0.0-0.5 [facility] Comment on above: Performed By: #### C BC #### [facility] [address] [place] [address] Dr. Josef Fraire LYMPH # 2.0 103/ul Normal 1.2-3.8 [facility] Comment on above: Performed By: #### C BC #### [facility] [address] [place] [address] Dr. Josef Fraire Lymphocytes/100 WBC (Bld) 25.1 % Normal 20.5-60.0 [facility] Comment on above: Performed By: #### C BC #### [facility] [address] [place] [address] Dr. Josef Fraire MANUAL DIFF REQ NO Normal [facility] Comment on above: Performed By: #### C BC #### [facility] [address] [place] [address] Dr. Josef Fraire MCH (RBC) [Entitic mass] 29.9 pg Normal 26.7-34.0 [facility] Comment on above: Performed By: #### C BC #### [facility] [address] [place] [address] Dr. Josef Fraire MCHC (RBC) [Mass/Vol] 32.2 g/dL Normal 29.9-35.2 [facility] Comment on above: Performed By: #### C BC #### [facility] [address] [place] [address] Dr. Josef Fraire MCV (RBC) [Entitic vol] 92.7 fL Normal 81.0-99.0 [facility] Comment on above: Performed By: #### C BC #### [facility] [address] [place] [address] Dr. Josef Fraire MONO # 0.5 103/ul Normal 0.3-0.8 [facility] Comment on above: Performed By: #### C BC #### [facility] [address] [place] [address] Dr. Josef Fraire Monocytes/100 WBC (Bld) 6.6 % Normal 1.7-12.0 [facility] Comment on above: Performed By: #### C BC #### [facility] [address] [place] [address] Dr. Josef Fraire NEUT # 5.1 103/ul Normal 1.4-6.5 [facility] Comment on above: Performed By: #### C BC #### [facility] [address] [place] [address] Dr. Josef Fraire Neutrophils/100 WBC (Bld) 65.0 % Normal 43.0-75.0 [facility] Comment on above: Performed By: #### C BC #### [facility] [address] [place] [address] Dr. Josef Fraire Platelet mean volume (Bld) [Entitic vol] 11.9 fL Normal 9.5-13.5 [facility] Comment on above: Performed By: #### C BC #### [facility] [address] [place] [address] Dr. Josef Fraire PLT 217 103/ul Normal 150-450 [facility] Comment on above: Performed By: #### C BC #### [facility] [address] [address] [address] Josef Fraire RBC 4.82 106/ul Normal 4.20-5.40 [facility] Comment on above: Performed By: #### C BC #### [facility] [address] [address] [address] Josef Fraire WBC 7.9 103/ul Normal 4.0-11.0 [facility] Comment on above: Performed By: #### C BC #### [facility] [address] [place] [address] Dr. Josef Fraire FERRITINon 10-13-2021 Ferritin [Mass/Vol] 56.0 ng/mL Normal 8.0-252.0 [facility] Comment on above: Performed By: #### F ERR #### [facility] [address] [place] [address] Dr. Josef Fraire LIPID PROFILEon 10-13-2021 CHOL-HDL RATIO NORM SEE BELOW Normal [facility] Comment on above: Result Comment: 3.3 - 4.4 LOW RISK 4.4 - 7.1 AVERAGE RISK 7.1 - 11.0 MODERATE RISK >11.0 HIGH RISK Performed By: #### L IPID, CMP #### [facility] [address] [address] [address] Josef Fraire Cholesterol [Mass/Vol] 156 mg/dL Normal <=200 Th [facility] Comment on above: Performed By: #### L IPID, CMP #### [facility] [address] [place] [address] Dr. Josef Fraire Cholesterol in HDL [Mass/Vol] 53 mg/dL Normal 40-60 [facility] Comment on above: Performed By: #### L IPID, CMP #### [facility] [address] [address] [address] Josef Fraire Cholesterol in LDL [Mass/Vol] 85.0 mg/dL Normal [facility] Comment on above: Performed By: #### L IPID, CMP #### [facility] [address] [address] [address] Josef Fraire Cholesterol.total/Dai sterol in HDL [Mass ratio] 2.9 {ratio} Normal [facility] Comment on above: Performed By: #### L IPID, CMP #### [facility] [address] [address] [address] Josef Fraire HDL NORMAL > or = 60 mg/dl - LOW CARDIOVASCULAR RISK <40 mg/dl - HIGH CARDIOVASCULAR RISK Normal [facility] Comment on above: Performed By: #### L IPID, CMP #### [facility] [address] [place] [address] Dr. Josef Fraire LDL CALC NORMAL SEE BELOW Normal [facility] Comment on above: Result Comment: <100 mg/dl OPTIMAL 100 - 129 mg/dl NEAR OR ABOVE OPTIMAL 130 - 159 mg/dl BORDERLINE HIGH 160 - 189 mg/dl HIGH >190 mg/dl VERY HIGH Performed By: #### L IPID, CMP #### [facility] [address] [address] [address] Josef Fraire Triglyceride [Mass/Vol] 90 mg/dL Normal <=150 T [facility] Comment on above: Performed By: #### L IPID, CMP #### [facility] [address] [place] [address] Dr. Josef Fraire VLDL CALC 18.0 mg/dL Normal [facility] Comment on above: Performed By: #### L IPID, CMP #### [facility] [address] [place] [address] Dr. Josef Fraire PROF 14(COMP METB)on 022 Albumin [Mass/Vol] 3.5 g/dL Normal 3.4-5.0 [facility] Comment on above: Performed By: #### L IPID, CMP #### [facility] [address] [address] [address] Josef Fraire Albumin/Globulin [Mass ratio] 1.0 {ratio} Normal [facility] Comment on above: Performed By: #### L IPID, CMP #### [facility] [address] [address] [address] Josef Fraire ALP [Catalytic activity/Vol] 90 U/L Normal 46-116 [facility] Comment on above: Performed By: #### L IPID, CMP #### [facility] [address] [address] [address] Josef Fraire ALT [Catalytic activity/Vol] 25 U/L Normal 14-59 [facility] Comment on above: Performed By: #### L IPID, CMP #### [facility] [address] [address] [address] Josef Fraire Anion gap [Moles/Vol] 9.0 mmol/L Normal [facility] Comment on above: Performed By: #### L IPID, CMP #### [facility] [address] [address] [address] Josef Fraire AST [Catalytic activity/Vol] 17 U/L Normal 15-37 [facility] Comment on above: Performed By: #### L IPID, CMP #### [facility] [address] [address] [address] Josef Fraire Bilirubin [Mass/Vol] 0.4 mg/dL Normal 0.2-1.0 [facility] Comment on above: Performed By: #### L IPID, CMP #### [facility] [address] [address] [address] Josef Fraire Calcium [Mass/Vol] 9.1 mg/dL Normal 8.5-10.1 [facility] Comment on above: Performed By: #### L IPID, CMP #### [facility] [address] [address] [address] Josef Fraire Chloride [Moles/Vol] 105 mmol/L Normal 98-107 [facility] Comment on above: Performed By: #### L IPID, CMP #### [facility] [address] [address] [address] Josef Fraire CO2 [Moles/Vol] 27.9 mmol/L Normal 21.0-32.0 [facility] Comment on above: Performed By: #### L IPID, CMP #### [facility] [address] [address] [address] Josef Fraire Creatinine [Mass/Vol] 0.78 mg/dL Normal 0.55-1.02 [facility] Comment on above: Performed By: #### L IPID, CMP #### [facility] [address] [address] [address] Josef Fraire EGFR-AF MARTINIQUAIS >60 Normal >=60 [facility] Comment on above: Performed By: #### L IPID, CMP #### [facility] [address] [address] [address] Josef Fraire EGFR-NON AF MARTINIQUAIS >60 Normal >=60 [facility] Comment on above: Performed By: #### L IPID, CMP #### [facility] [address] [address] [address] Josef Fraire Globulin (S) [Mass/Vol] 3.5 g/dL Normal [facility] Comment on above: Performed By: #### L IPID, CMP #### [facility] [address] [address] [address] Josef Fraire Glucose [Mass/Vol] 89 mg/dL Normal 74-106 [facility] Comment on above: Performed By: #### L IPID, CMP #### [facility] [address] [address] [address] Josef Fraire Potassium [Moles/Vol] 4.3 mmol/L Normal 3.5-5.1 [facility] Comment on above: Performed By: #### L IPID, CMP #### [facility] [address] [address] [address] Josef Fraire Protein [Mass/Vol] 7.0 g/dL Normal 6.4-8.2 [facility] Comment on above: Performed By: #### L IPID, CMP #### [facility] [address] [address] [address] Josef Fraire Sodium [Moles/Vol] 140 mmol/L Normal 136-145 [facility] Comment on above: Performed By: #### L IPID, CMP #### [facility] [address] [address] [address] Josef Fraire Urea nitrogen [Mass/Vol] 8.0 mg/dL Normal 7.0-18.0 [facility] Comment on above: Performed By: #### L IPID, CMP #### [facility] [address] [address] [address] Josef Fraire Urea nitrogen/Creatinine [Mass ratio] 10.2 mg/mg Normal [facility] Comment on above: Performed By: #### L IPID, CMP #### [facility] [address] [address] [address] Josef Fraire Vital Signs Date Time Vital Sign Value Performing Clinician Facility 11-22-2022 09:10-0400 Body height 160.02 cm Gracia Woodruff Other [facility] Other 11-22-2022 09:10-0400 Body mass index (BMI) [Ratio] 25.98 kg/m2 Gracia Woodruff Other [facility] Other 11-22-2022 09:10-0400 Body temperature 97.8 [degF] Gracia Woodruff Other [facility] Other 11-22-2022 09:10-0400 Body weight 66.54 kg Gracia Woodruff Other [facility] Other 11-22-2022 09:10-0400 Diastolic blood pressure 56 mm[Hg] Gracia Woodruff Other [facility] Other 11-22-2022 09:10-0400 Respiratory rate 18 /min Gracia Ramsey [facility] [email or web address] Other 11-22-2022 09:10-0400 SaO2% (BldA) [Mass fraction] 95 % Gracia Woodruff Other [email or web address] Other 11-22-2022 09:10-0400 Systolic blood pressure 148 mm[Hg] Gracia Woodruff Other [email or web address] Other 12-23-2021 14:20-0400 Diastolic blood pressure 64 mm[Hg] DO Gume Hykes Work Phone: [facility] 12-23-2021 14:20-0400 Heart rate 71 /min DO Gume Hykes Work Phone: [facility] 12-23-2021 14:20-0400 Respiratory rate 16 /min DO Gume Hykes Work Phone: [facility] 12-23-2021 14:20-0400 SaO2% (BldA) [Mass fraction] 96 % DO Gume Hykes Work Phone: [facility] 12-23-2021 14:20-0400 Systolic blood pressure 122 mm[Hg] DO Gume Hykes Work Phone: [facility] 12-23-2021 12:12-0400 Body height 157.48 cm DO Gume Hykes Work Phone: [facility] 12-23-2021 12:12-0400 Body mass index (BMI) [Ratio] 27 kg/m2 DO Gume Hykes Work Phone: [facility] 12-23-2021 12:12-0400 Body weight 67 kg DO Gume Hykes Work Phone: [facility] 12-23-2021 11:11-0400 Body temperature 97.9 [degF] DO Gume Hykes Work Phone: [facility] 11-05-2021 13:50-0400 Diastolic blood pressure 64 mm[Hg] DO Gume Hykes Work Phone: [facility] 11-05-2021 13:50-0400 Heart rate 77 /min DO Gume Hykes Work Phone: [facility] 11-05-2021 13:50-0400 Respiratory rate 16 /min DO Gume Hykes Work Phone: [facility] 11-05-2021 13:50-0400 SaO2% (BldA) [Mass fraction] 97 % DO Gume Hykes Work Phone: [facility] 11-05-2021 13:50-0400 Systolic blood pressure 118 mm[Hg] DO Gume Hykes Work Phone: [facility] 11-05-2021 12:49-0400 Body height 160.02 cm DO Gume Hykes Work Phone: [facility] 11-05-2021 12:49-0400 Body mass index (BMI) [Ratio] 25.3 kg/m2 DO Gume Hykes Work Phone: [facility] 11-05-2021 12:49-0400 Body temperature 98.2 [degF] DO Gume Hykes Work Phone: [facility] 11-05-2021 12:49-0400 Body weight 64.86 kg DO Gume Hykes Work Phone: [facility] 05-06-2021 10:45-0500 Body height 160.02 cm Dede Mavinrene Other [facility] Other 05-06-2021 10:45-0500 Body mass index (BMI) [Ratio] 25.74 kg/m2 Dede Calvrene Other [facility] Other 05-06-2021 10:45-0500 Body weight 65.91 kg Dedearturo Garcia Other [facility] Other 04-08-2021 15:15-0500 Body height 160.02 cm Dede Garcia Other [facility] Other 04-08-2021 15:15-0500 Body mass index (BMI) [Ratio] 25.33 kg/m2 Dede Garcia Other [facility] Other 04-08-2021 15:15-0500 Body weight 64.86 kg Dede Garcia Other [facility] Other Encounters Encounter Date Encounter Type Care Provider Facility Start: 06-01-2023 End: 06-01-2023 ambulatory ROONEY FAWWAD Not Available Start: 05-17-2023 End: 05-17-2023 ambulatory ROONEY FAWWAD Not Available Start: 11-22-2022 End: 11-22-2022 ambulatory Gracia Woodruff Other [facility] Other Start: 11-22-2022 Office outpatient visit 15 minutes Gracia Woodruff [facility] Start: 09-13-2022 ambulatory Facility:[facility]ie Keen Start: 04-07-2022 End: 04-08-2022 ambulatory ROONEY H FAWWAD Facility:[facility] Start: 01-28-2022 End: 01-28-[address] YORDAN BAÑUELOS Facility:[facility] Start: 01-27-2022 End: 01-28-2022 ambulatory ROONEY H FAWWAD Facility:[facility] Start: 01-18-2022 End: 01-19-2022 ambulatory ROONEY H FAWWAD Facility:[facility] Start: 12-23-2021 End: 12-23-2021 ambulatory Rooney Fawwad Facility:[facility] Start: 12-23-2021 End: 12-23-2021 Admission to same day surgery center DO Gume Marion Phone: [facility] [place] Start: 12-21-2021 End: 12-21-2021 ambulatory Shaikh Ashley Facility:[facility] Start: 12-21-2021 End: 12-21-2021 Patient encounter procedure DO Gume Geoffphilippe Work Phone: [facility] Start: 12-11-2021 End: 12-11-2021 ambulatory Shaikh Ashley Facility:[facility] Start: 12-11-2021 End: 12-11-2021 Patient encounter procedure DO Gume Ziegler Work Phone: [facility] Start: 12-09-2021 End: 12-09-2021 ambulatory Gume Ziegler Other [facility] Other Start: 12-09-2021 Telephone encounter Gume Ziegler [facility] Start: 11-27-2021 End: 11-27-2021 ambulatory Gume Ziegler Other [facility] Other Start: 11-27-2021 Telephone encounter Gume Ziegler [facility] Start: 11-09-2021 End: 11-09-2021 ambulatory Gume Ziegler Other [facility] Other Start: 11-09-2021 Telephone encounter Gume Ziegler [facility] Start: 11-05-2021 End: 11-05-2021 ambulatory Gume Ziegler Facility:[facility] Start: 11-05-2021 End: 11-05-2021 Admission to same day surgery center DO Gume Ziegler Work Phone: [facility] Start: 11-03-2021 End: 11-03-2021 ambulatory Gume Ziegler Facility:[facility] Start: 11-03-2021 End: 11-03-2021 Patient encounter procedure DO Gume Ziegler Work Phone: [facility] Start: 10-28-2021 End: 10-28-2021 ambulatory Gume Ziegler Other [facility] Other Start: 10-28-2021 Telephone encounter Gume Ziegler [facility] Start: 10-27-2021 End: 10-28-2021 ambulatory SHAIKH Erika RAMIREZ Facility:[facility] Start: 10-13-2021 End: 10-14-2021 ambulatory SHAIKH Erika FAAshleyWAD Facility:[facility] Start: 05-06-2021 End: 05-06-2021 ambulatory Dede Mayorgarene Other [facility] Other Start: 05-06-2021 Office outpatient visit 10 minutes Dede Calvey [facility] Start: 04-14-2021 End: 04-14-2021 ambulatory Jaime Paulino Other [facility] Other Start: 04-14-2021 Telephone encounter Jaime Paulino [facility] Start: 04-08-2021 End: 04-08-2021 ambulatory Dede Garcia Other [facility] Other Start: 04-08-2021 Office outpatient visit 15 minutes Dede Calvey [facility] Start: 03-11-2021 Office outpatient visit 15 minutes Dede [facility] Procedures Date Procedure Procedure Detail Performing Clinician Start: 12-23-2021 Hemorrhoidectomy DO Wes bonilla Toney Work Phone: Start: 11-05-2021 Diagnostic endoscopi c examination on colon DO Gume Ziegler Work Phone: SARS Antigen (LFIA) DO Gume Geoffphilippe Work Phone: Plan of Treatment Date Care Activity Detail Author Start: 12-23-2021 [facility] Work Phone: Start: 12-23-2021 [facility] Work Phone: Start: 11-05-2021 [facility] Work Phone: Patient Education Hemorrhoids Di verticulosis Dicyclomine [facility] Work Phone: Immunizations Immunization Date Immunization Notes Care Provider Cristiane smith 08-28-2021 COVID-19 mRNA-1273 (Moderna) DO Gume Ziegler Work Phone: [facility] 04-22-2021 COVID-19 mRNA-1273 (Moderna) DO Gume Ziegler Work Phone: [facility] 03-11-2021 Kenalog -40 mg Dede Calve y Other [facility] Other 09-25-2020 COVID-19 mRNA-1273 (Moderna) DO Gume Ziegler Work Phone: [facility] 08-28-2020 COVID-19 mRNA-1273 (Moderna) DO Gume Ziegler Work Phone: [facility] 12-31-2019 Kenalog -40 mg Dede Calve y Other [facility] Other 04-23-2019 Kenalog -40 mg Dede Calve y Other [facility] Other Payers Date Payer Category Payer Unknown [id number] 2021 Self-pay [id number] 1958 Medicare [id number] 2. [id number] 1950 Unknown [id number] 2.16.84 0.1.620800.3.579.2.593 1950 Unknown [id number] 2.16.84 0.1.310962.3.579.2.593 1950 Unknown [id number] 2.16.84 0.1.298665.3.579.2.593 1950 Unknown [id number] 2.16.84 0.1.307444.3.579.2.593 1950 Unknown [id number] 2.16.84 0.1.548827.3.579.2.593 1950 Unknown [id number] 2.16.84 0.1.190301.3.579.2.593 1950 Unknown [id number] 2.16.840 .1.013041.3.579.2.1259 1950 Unknown [id number] 2.16.840 .1.249745.3.579.2.1259 Medicare [id number] 2.1 6.840.1.294915.19 Unknown [id number] 2. 16.840.1.317974.19 Unknown [id number] 2.16.8 40.1.499293.3.579.2.531 Unknown [id number] 2.16.8 40.1.561667.3.579.2.531 Unknown [id number] 2.16.8 40.1.924593.3.579.2.531 Unknown [id number] 2.16.8 40.1.087929.3.579.2.531 Unknown [id number] 2.16.8 40.1.723637.3.579.2.531 Social History Date Type Detail Facility Unknown if ever smoked [facility] Other Sex Assigned At Sex Assigned At Bir th [facility] Other Start: 12-23-[address] [facility] Smoker (finding) [facility] Start: 1950 Sex Assigned At Female F [facility] Goals Date Patient Goal Desired Activity /State Evaluation note 11-22-2022 Note Date & Type Note Facility 11-22-2022 Evaluation note Encounter Date Diagnosis Assessment Notes Oct, Acute idiopathic urticaria (ICD-10 - L50.1) Discussed with patient rash is consistent with hives. Do not see any signs of any insect bites. Discussed hives are related to histamine reaction. Will treat with as needed hydroxyzine. May also use topical Benadryl ointment. We will treat with 6-day prednisone taper to help with inflammation and itching. Patient has no signs of angioedema or airway compromise. Discussed with patient if she has recurrent unexplained hive-like rash she may want to consider following up with PCP or specialist for possible allergy testing. Patient verbalized understanding of treatment plan. Follow-up with PCP if symptoms or not gradually improving over the next 3 to 4 days, sooner if significantly worsening or changing appearance. [facility] Other Evaluation note 10-28-2021 Note Date & Type Note Facility 10-28-2021 Evaluation note Encounter Date Diagnosis Assessment Notes Oct, Blood in stool (ICD-10 - K92.1) [facility] Other Evaluation note 05-06-2021 Note Date & Type Note Facility 05-06-2021 Evaluation note Encounter Date Diagnosis Assessment Notes Apr, Left wrist pain (ICD-10 - M25.532) Apr, De Quervain's tenosynovitis , left (ICD-10 - M65.4) Patient is progressing well. Discussed that since she is doing well with no concerns, we advised to keep an eye on conditon and to call with questions or concerns. 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 Instructed on use of topical NSAID to decrease residual pain and inflammation. Discussed further treatment as oral steroid as well as cortisone injection into the CMC joint. We will start with the medrol dose pack. Sent in with instructions on use. 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 We discussed first trying a cortisone injection. Should symptoms persist or worsen we could further discuss surgery. We performed a cortisone injection into the left wrist tendon sheath under sterile technique. Patient tolerated the injection well without adverse reaction. 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) [facility] Other Evaluation note Note Date & Type Note Facility Evaluation note No Information [facility] Other Evaluation note Note Date & Type Note Facility Evaluation note Diagnosis Onset Date Abdominal pain acute Blood in stool acute [facility] Work Phone: History general Narrative - Reported Note Date & Type Note Facility History general Narrative - Reported Type Medical History GERD Medical History PUD Medical History hyperlipidemia Medical History diverticulosis Medical History colon polyps Surgical History HYSTERECTOMY Surgical History APPENDECTOMY Surgical History HEMRRHOIDECTOMY 01/16/21 Hospitalization History SEE SURGERIES [facility] Other Chief Complaint and Reason for Visit Chief Complaint Blood in Stool Blood in Stool Rectal Bleeding, Hemorrhoids Rectal Bleeding, Hemorrhoids Rectal Bleeding, Hemorrhoids Reason for Visit Abdominal pain Blood in stool Family History No Family History Records Found Relationship Condition Age at Onset Recorded Date/T ramesh Not Specified Diabetes mellitus Unknown grandparent Diabetes mellitus Unknown grandparent Hepatic cirrhosis Unknown family member Malignant neoplasm Unknown Advance Directives No Advanced Directives Records Found Advance Directive Response Recorded Date/ Time Advance Directives No December 16 4:35pm Summary Purpose Additional Source Comments REASON FOR VISIT (unrecogniz ed section and content) Left Wrist PainRecheck Left WristClinicalRecheck Left WristClinical Acute IllnessClinicalREFILLClinical Acute Medicinespider bites on both hands and right foot Care Teams (unrecognized sec tion and content) Team Status: Inactive Member Role Status Dates Shaikh Ashley MD Primary Care Provider Active Gabriel Qiu DO Attending Provider Active Team Status: Inactive Member Role Status Samson Ziegler DO Attending Provider Active Shaikh Ashley MD Primary Care Provider Active Team Status: Active Member Role Status Samson Ramirez MD Primary Care Provider Active INFORMATION SOURCE (unrecogn ized section and content) DATE CREATED AUTHOR 04/12/2022 [facility] DATE CREATED AUTHOR AUTHOR'S ORGANIZ ATION 07/03/2022 [facility] DATE CREATED AUTHOR AUTHOR'S ORGANIZ ATION 03/25/2023 [facility] DATE CREATED AUTHOR AUTHOR'S ORGANIZ ATION 06/02/2023 [facility] d[facility] Specialists [facility] FOR RECORDS PERTAINING TO PATIENTS WHO ARE OR HAVE BEEN ENROLLED IN A CHEMICAL DEPENDENCY/SUBSTANCEABUSE PROGRAM, SOME INFORMATION MAY BE OMITTED. This clinical summary was aggregated from multiple sources. Caution should be exercised in using it in the provision of clinical care. This summary normalizes information from multiple sources, and as a consequence, information in this document may materially change the coding, format and clinical context of patient data. In addition, data may be omitted in some cases. CLINICAL DECISIONS SHOULD BE BASED ON THE PRIMARY CLINICAL RECORDS. [employer] provides no warranty or guarantee of the accuracy or completeness of information in this document.
--- NOTE | 2023-06-14 08:40 | CA_ITS ---
Patient Name: SHERRI DUNN MR#: [id number] : 1950 Exam Date: 06/14/2023 Ordering Doctor: SHAIKH Denise CLARKE . ECHOCARDIOGRAM REPORT PROCEDURE: CA ECHO DOPPLER COMPLETE INDICATIONS: New atrial 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, smoker COMPARISON: None. DESCRIPTION: COMPLETE ECHOCARDIOGRAM Real-time transthoracic echocardiography with 2D, M-mode, spectral and color flow Doppler performed. QUALITY: Technical quality was good. 62 , 144#, BSA 1.66 m2 LEFT VENTRICLE: Normal chamber size. Normal left ventricular wall thickness. Systolic function is normal. LV EF: Normal left ventricular ejection fraction, (55%). DIASTOLIC: Normal diastolic function. ATRIAL SEPTUM: Visually appears intact. LEFT ATRIUM: Normal chamber size. RIGHT ATRIUM: Normal chamber size. RIGHT VENTRICLE: Normal chamber size. Normal right ventricular systolic function. TRICUSPID VALVE: Normal mobility and thickness. No stenosis with mild regurgitation. Doppler studies reveal mildly (35-45) elevated right sided pressures. RVSP 43 mmHg MITRAL VALVE: Normal mobility and thickness. No evidence of mitral valve stenosis. There is no mitral annular calcification. Trivial mitral regurgitation. AORTIC VALVE: Normal trileaflet appearance. No visible sclerosis. Normal leaflet mobility. No evidence of aortic valve stenosis. No aortic regurgitation. AORTIC ROOT: Normal diameter and appearance. PULMONIC VALVE: Normal thickness and mobility. No stenosis. Trivial regurgitation. PERICARDIUM: No evidence of pericardial effusion. IVC: Collapses with inspirations. IVC is normal in size. PLEURA: CONCLUSION: 1. Normal ventricular function. LVEF is 55%. 2. No significant valvular dysfunction. 3. Mildly elevated right-sided pressures. 4. No pericardial effusion. Adult Echocardiography Procedure Report Left Ventricle LVEDD (3.7 - 5.6 cm): 4.26 cm LVESD (2.2 - 4.0 cm): 2.99 cm LVIVS thickness (0.6 - 1.2 cm): 0.95 cm LVPW thickness (0.5 - 1.0 cm): 0.94 cm e': 0.08 m/s E - e': 9.23 LVOT Max Gradient: 1.45 mm[Hg] LVOT Area (cm2): 0.60 m/s Peak Velocity (LVOT): 0.60 m/s Mean Velocity (LVOT): 0.42 m/s LVOT Diameter 2.40 cm Left Atrium LA Volume Index (2D A2C): 32.86 ml/m2 Left Atrium Systolic Dimension: 2.55 cm Mitral Valve MV E to A Ratio: 1.13 Mitral Valve A-Wave Peak Velocity: 0.67 m/s Mitral Valve E-Wave Peak Velocity: 0.76 m/s Right Ventricle Aorta AO Root Diam: 3.25 cm Ascending Ao Diam: 2.43 cm Aortic Valve AoV Area (Peak Tom): 2.77 cm2, 2.77 cm2 AoV Area (VTI): 2.55 cm2, 2.55 cm2 Peak Velocity(Antegrade Flow): 0.98 m/s Peak Gradient(Antegrade Flow): 3.87 mm[Hg] Mean Velocity(Antegrade Flow): 0.68 m/s Mean Gradient(Antegrade Flow): 2.07 mm[Hg] Velocity Time Integral: 25.98 cm Tricuspid Valve Peak Velocity (Regurgitant Flow): 2.76 m/s, 2.64 m/s, 3.18 m/s, 2.90 m/s Pulmonic Valve Peak Velocity: 0.66 m/s Peak Gradient: 1.97 mm[Hg], 1.57 mm[Hg] Right Atrium Right Atrium Systolic Pressure: 45.36 ml, 45.36 ml Dictated by: Austyn Lane M.D. on 06/14/2023 at 18:22 Approved by: Austyn Lane M.D. on 06/14/2023 at 18:24
== END 2023-06-14 07:58 | disposition home or self-care (01) ==
LOC: CARD 07:58
PROVIDERS: PCP Internal Medicine; Visit Provider Internal Medicine
DX: I48.91 Unspecified atrial 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 (principal); R07.9 Chest pain, unspecified
CPT/HCPCS: 93306

== ENCOUNTER 2023-06-24 08:41 | Outpatient (OUT) | payer MEDICARE, SELFPAY ==
--- OUTSIDE RECORDS SUMMARY | 2023-06-24 08:47 | XMS_ITS | CCD ---
Author Name Unknown Address [address] [facility] [address] [place] [address] Organization [facility] Care Team Providers Care 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 Name Role Phone TierrareneDede Unavailable Jaime Paulino Unavailable Gume Ziegler Unavailable DO Gume Ziegler Attending Provider MD Nevin Ramirez Primary Care Provider [phone] DO Gabriel Qiu Attending Provider [phone] FAWWAD, ROONEY H Admitting Unavailable FAWWAD, ROONEY [...] Unavailable FAWWAD, ROONEY H Primary Care Unavailable Ashley, Rooney Primary Care Unavailable Gabriel Qiu Attending Unavailable Gabriel Qiu Admitting Unavailable Fawadelfo, Rooney Primary Care Unavailable Gabriel Qiu Attending Unavailable Gabriel Qiu Admitting Unavailable Gume Ziegler Attending Unavailable Gume Ziegler Admitting Unavailable Fawwad, Rooney Primary Care Unavailable Gume Ziegler Attending Unavailable Gume Ziegler Admitting Unavailable Fawwad, Rooney Primary Care Unavailable Fajasond, Rooney Primary Care Unavailable Corinne, Gabriel Attending Unavailable Gabriel Qiu Admitting Unavailable Gracia Woodruff Unavailable SHAIKH RAMIREZ Attending Unavailable SHAIKH RAMIREZ Attending Unavailable Shaikh Ramirez MD Primary Care Provider Allergies Allergy Classification Reported Allergen(s) Allergy Type Date of Onset Reaction(s) Facility (10 sources) Ciprofloxacin Drug Allergy 4 [facility] (12 sources) Codeine Drug Allergy 2 [facility] (12 sources) metroNIDAZOLE Drug Allergy 2 [facility] (9 sources) Penicillin V Drug Allergy [facility] Other (3 sources) Cefaclor; Translations: [cefaclor] Drug Allergy 2 [facility] (3 sources) Dicyclomine; Translations: [dicyclomine] Drug Allergy [address] [facility] (4 sources) Penicillins; Translations: [Penicillins] Allergy to substance [address] [facility] (1 source) Adhesive agent Drug allergy (disorder) [facility] (1 source) Ciprofloxacin Drug Allergy 4 [facility] (1 source) Codeine Drug Allergy 3 [facility] (1 source) Latex Drug allergy (disorder) [facility] (1 source) NSAIDs Drug allergy (disorder) 3 [facility] (1 source) Codeine Drug Allergy 2 [facility] (1 source) metroNIDAZOLE Drug Allergy 2 [facility] (1 source) Penicillin G Drug Allergy 4 [facility] Work Phone: Medications Current Medications Medication Drug Class(es) Dates Sig (Normalized) Sig (Original) [id number] 200 actuat albuterol 0.09 mg/actuat metered dose inhaler (12 sources) beta2-Adrenergic Agonist Start: 03-02-2023 take 2 puff(s) by inhalation every four hours for wheezing albuterol 90 mcg/actuation inhaler Inhale 2 puffs every 4 hours if needed for wheezing. 0 03/02/2023 Active Start: 01-16-2021 Albuterol Sulf ate (Ventolin Hfa) 90 mcg/actuation Hfa Aerosol Inhaler Active 2 PUFF INHALATION As Directed January 16, 2021 12:00am take 2 puff(s) by in halation every four hours as needed Ventolin HFA 108 (90 Base) MCG/ACT 2 puffs Inhalation every 4 hrs prn Active alendronic acid 70 mg oral tablet (12 sources) Bisphosphonate Start: 05-29-2023 take 1 tablet by mouth every week alendronate (Fosamax) 70 mg tablet Take 1 tablet (70 mg) by mouth 1 (one) time per week. 0 05/29/2023 Active Start: 01-16-2021 take 70 mg by mouth [...] 1 puff Inhalation Once a day Active apixaban 5 mg oral tablet (1 source) Factor Xa Inhibitor take 1 tablet by mouth twice daily apixaban (Eliquis) 5 mg tablet Take 1 tablet (5 mg) by mouth 2 times a day. 0 Active atorvastatin 10 mg oral tablet (12 sources) HMG-CoA Reductase Inhibitor Start: 05-01-2023 take 1 tablet by mouth once daily atorvastatin (Lipitor) 10 mg tablet Take 1 tablet (10 mg) by mouth once daily. 0 05/01/2023 Active Start: 01-16-2021 take 10 mg by mouth once daily in the morning Atorvastatin Active 10 MG PO Every morning January 16, 2021 12:00am calcium carbonate 1250 mg / cholecalciferol 0.01 mg oral tablet (3 sources) Vitamin D Start: 09-01-2022 take 2 tablets by mouth every twelve hours Calcium 500 With D 500 mg-10 mcg (400 unit) tablet Take 2 tablets by mouth every 12 hours. 0 09/01/2022 Active Start: 11-03-2021 take 2 tablets by mo uth twice daily Calcium Carbonate-Vitamin D3 (Oyster Shell [...] 12:00am Start: 12-18-2020 take 1 capsule by [facility] every twelve hours Colace 100 MG 1 CAPSULE Orally TWICE A DAY for 30 day(s) Nov, Not-Taking fluticasone propionate 0.05 mg/actuat metered dose nasal spray (1 source) Corticosteroid take 2 spray(s) nasal route once daily fluticasone (Flonase) 50 mcg/actuation nasal spray Administer 2 sprays into each nostril once daily. Shake gently. Before first use, prime pump. After use, clean tip and replace cap. 0 Active hydrOXYzine hydrochloride 25 mg oral tablet (1 source) Antihistamine Start: 2022 take 1 tablet by mouth every eight hours as needed hydrOXYzine HCl 25 MG 1 tablet Orally q8hrs prn itching, rash for 5 days Oct, Active losartan potassium 100 mg oral tablet (1 source) Angiotensin 2 Receptor Jessie Start: 2022 take 1 tablet by mouth once daily losartan (Cozaar) 100 mg tablet Take 1 tablet (100 mg) by mouth once daily. 0 05/03/2023 Active methylPREDNISolone 4 mg oral tablet (7 sources) Corticosteroid Start: 2020 Medrol 4 MG as directed Orally Mar, Active metoprolol tartrate 25 mg oral tablet (1 source) beta-Adrenergic Jessie take 1 tablet by mouth twice daily metoprolol tartrate (Lopressor) 25 mg tablet Take 1 tablet (25 mg) by mouth 2 times a day. 0 Active pantoprazole 40 mg delayed release oral tablet (14 sources) Proton Pump Inhibitor Start: 2022 take 1 tablet by mouth once daily pantoprazole (ProtoNix) 40 mg EC tablet Take 1 tablet (40 mg) by mouth once daily. 0 03/14/2023 Active Start: 12-11-2021 take 40 mg by mouth once daily in the morning Pantoprazole Active 40 MG PO Every morning December 11, 2021 12:00am Start: 01-16-2021 End: 11-03-2021 take 40 mg by mouth once daily Pantoprazole Discontinu ed 40 MG PO Daily January 16, 2021 12:00am November 03, 2021 1:12pm pramipexole dihydrochloride 0.5 mg oral tablet (12 sources) Nonergot Dopamine Agonist Start: 04-03-2023 take 1 tablet by mouth once daily at bedtime pramipexole (Mirapex) 0.5 mg tablet Take 1 tablet (0.5 mg) by mouth once daily at bedtime. 0 04/03/2023 Active Start: 01-16-2021 take 0.5 mg by mouth [...] oral tablet (2 sources) Opioid Agonist Start: 07-27-2022 take 0.5-1 tablets by mouth every six hours as needed for pain Tramadol (Ultram) 50 mg tablet Active 50 MG PO Q6H 30 7 December 23, 2021 12:00am 1/2 - 1 tab po q 6 hours prn pain 30 actuat umeclidinium 0.0625 mg/actuat / vilanterol 0.025 mg/actuat dry powder inhaler (11 sources) Anticholinergic , beta2-Adrenergi c Agonist Start: 06-01-2023 Anoro Ellipta 62.5-25 mcg/actuation blister with device Inhale 1 puff. 0 06/01/2023 Active Start: 01-16-2021 Umeclidinium-V ilanterol (Anoro Ellipta) 62.5-25 mcg/actuation blister with device Active 1 EACH INHALATION Every morning January 16, 2021 12:00am take 1 puff(s) by inhalation once daily [...] a day for 30 day(s) Nov, Not-Taking diphenhydrAMINE hydrochloride 20 mg/ml / zinc acetate 1 mg/ml topical cream (1 source) Histamine-1 Receptor Antagonist End: 06-23-2023 diphenhydramine-z inc acetate cream Apply topically once daily at bedtime. 0 06/23/2023 Discontinued (Therapy completed) hydrocortisone 25 mg/ml topical cream (14 sources) [...] A DAY for 10 day(s) Nov, Not-Taking naproxen 500 mg oral tablet (1 source) Nonsteroidal Anti-inflammatory Drug Start: 03-29-2023 End: 06-23-2023 take 1 tablet by mouth every twelve hours naproxen (Naprosyn) 500 mg tablet Take 1 tablet (500 mg) by mouth every 12 hours if needed. 0 03/29/2023 06/23/2023 Discontinued (Therapy completed) omeprazole 40 mg delayed release oral capsule [...] Abdominal pain; Translations: [Unspecified abdominal pain] Onset: 2 11-05-2021 Episodic Acute and unspecified renal failure (1 source) Acute kidney failure, unspecified; Translations: [ACUTE KIDNEY FAILURE UNSPECIFIED] Onset: 2 Episodic Allergic reactions (1 source) Idiopathic urticaria Episodic Cardiac dysrhythmias (4 sources) Atrial 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; Translations: [Unspecified atrial 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] Onset: 4 Resolved: 4 06-23-2023 Chronic Coagulation and hemorrhagic disorders (2 sources) Other thrombophilia; Translations: [Secondary hypercoagulable state] Onset: 4 06-23-2023 Chronic Conditions associated with dizziness or vertigo (4 sources) Dizziness and giddiness; Translations: [DIZZINESS AND GIDDINESS] Onset: 2 Episodic Disorders of lipid metabolism (3 sources) Hyperlipidemia, unspecified; Translations: [Hyperlipidemia] Onset: 2 06-23-2023 Chronic Diverticulosis and diverticulitis (18 sources) Diverticulosis of sigmoid colon; Translations: [Diverticulosis of large intestine without perforation or abscess without bleeding] Chronic Esophageal disorders (2 sources) Gastroesophageal reflux disease; Translations: [Gastro-esophageal reflux disease without esophagitis] Onset: 4 06-23-2023 Chronic Essential hypertension (6 sources) Essential (primary) hypertension; Translations: [Essential hypertension] Onset: 2 Chronic Fluid and electrolyte disorders (1 source) Dehydration; Translations: [DEHYDRATION] Onset: 2 Episodic Hemorrhoids (2 sources) Hemorrhoids; Translations: [Unspecified hemorrhoids] 12-23-2021 Episodic Nonspecific chest pain (2 sources) Chest pain; Translations: [Chest pain, unspecified] Onset: 4 06-23-2023 Episodic Osteoarthritis (20 sources) Arthritis of left wrist; Translations: [Primary osteoarthritis, left wrist] Onset: 1 Resolved: 1 Chronic Other aftercare (1 source) 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; Translations: [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 CURRENT DRUG THERAPY] Onset: 2 Episodic Other aftercare (2 sources) Long-term current use of anticoagulant; Translations: [snf (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 anticoagulants] Onset: 4 06-23-2023 Episodic Other and unspecified benign neoplasm (9 [...] legs syndrome; Translations: [RESTLESS LEGS SYNDROME] Onset: 2 Chronic Other hereditary and degenerative nervous system conditions (1 source) Myoclonus; Translations: [MYOCLONUS] Onset: 2 Chronic Substance-related disorders (2 sources) Smokes tobacco daily; Translations: [Nicotine dependence, unspecified, uncomplicated] Onset: 4 06-23-2023 Chronic Unclassified (1 source) Encounter for preprocedural laboratory examination; Translations: [Encounter for preprocedural laboratory examination] Onset: 2 Unclassified (1 source) Z01.812 - Encounter for preprocedural laboratory examination; Translations: [Z01.812 - Encounter for preprocedural laboratory examination] Onset: 2 Past or Other Problems Problem Classification Problem [...] MAMMO MALIG NEOPLASM BREAST] Onset: 10-27-2021 Episodic Unclassified (1 source) Onset: 06-23-2023 06-23-2023 Results Test Name Value Interpretation Reference Range Facility ECG 12 Leadon 06-23-2023 [facility] Work Phone: Patient Letter FTMCon 2022 Patient Letter FT March 23, 20[place] [address] : 1950 Dear Sherri, This is a reminder that you are due for an appointment with [facility] [facility]. Please contact our office at [phone] to schedule an appointment at your earliest convenience. Thank you, [facility] Reminderson 03-23-2023 Reminders -- From: Juliane Gillis MA To: [facility] - Reminders/Recalls; Sent: 02/04/2023 13:34:26 EDT Show up: 02/04/2023 13:34:00 EDT Subject: colon recall Reminder Message 10 year recall Salam 09/22/12 first recall letter second recall letter Normal [facility] Patient Letter FTMCon 2022 Patient Letter FT February 07, 20[address] [place] [address] : 1950 Dear Sherri, This is a reminder that you are due for an appointment with [facility] [employer] [facility]. Please contact our office at [phone] to schedule an appointment at your earliest convenience. Thank you, [facility] Normal [facility] Patient Letter FTon 2022 Patient Letter FT September 29, 2022 [address] [place] [address] SHERIR VILLA 1950 Dear Sherri, This is a SECOND ATTEMPT to remind you that you are due for an appointment with [facility]. Please contact our office at [phone] to schedule an appointment at your earliest convenience. Thank you, [facility] Reminderson 09-29-2022 Reminders -- From: Ligia Roberts To: [facility] - Reminders/Recalls; Sent: 09/13/2022 10:56:07 EDT Show up: 09/13/2022 10:56:00 EDT Subject: Ambulatory Reminder Reminder/Recall arturo aguilar 10 year colon recall 09/19/2022 first recall letter second recall letter Normal [facility] Patient Letter FTon 2022 Patient Letter FT September 13, 2022 [address] [place] [address] SHERRI VILLA 1950 Dear Sherri, This is a reminder that you are due for an appointment with [facility]. Please contact our office at [phone] to schedule an appointment at your earliest convenience. Thank you, [facility] Normal [facility] PROF CHEM 8 (BAS METB)on Anion gap [Moles/Vol] 10.8 mmol/L Normal [facility] Comment on above: Performed By: #### B MP #### [facility] [address] [address] [address] Josef Fraire Calcium [Mass/Vol] 9.4 mg/dL Normal 8.5-10.1 [facility] Comment on above: Performed By: #### B MP #### [facility] [address] [address] [address] Josef Fraire Chloride [Moles/Vol] 104 mmol/L Normal 98-107 [facility] Comment on above: Performed By: #### B MP #### [facility] [address] [address] [address] Josef Fraire CO2 [Moles/Vol] 28.4 mmol/L Normal 21.0-32.0 [facility] Comment on above: Performed By: #### B MP #### [facility] [address] [address] [address] Josef Fraire Creatinine [Mass/Vol] 1.03 mg/dL Critically high 0.55-1.02 [facility] Comment on above: Performed By: #### B MP #### [facility] [address] [place] [address] Dr. Josef Fraire EGFR-AF QATARI >60 Normal >=60 [facility] Comment on above: Performed By: #### B MP #### [facility] [address] [address] [address] Josef Fraire EGFR-NON AF QATARI 53 mL/min/1.73m2 Critically low >=60 [facility] Comment on above: Performed By: #### B MP #### [facility] [address] [address] [address] Josef Fraire Glucose [Mass/Vol] 82 mg/dL Normal 74-106 [facility] Comment on above: Performed By: #### B MP #### [facility] [address] [place] [address] Dr. Josef Fraire Potassium [Moles/Vol] 4.2 mmol/L Normal 3.5-5.1 [facility] Comment on above: Performed By: #### B MP #### [facility] [address] [address] [address] Josef Fraire Sodium [Moles/Vol] 139 mmol/L Normal 136-145 [facility] Comment on above: Performed By: #### B MP #### [facility] [address] [address] [address] Josef Fraire Urea nitrogen [Mass/Vol] 10.0 mg/dL Normal 7.0-18.0 [facility] Comment on above: Performed By: #### B MP #### [facility] [address] [place] [address] Dr. Josef Fraire Urea nitrogen/Creatinine [Mass ratio] 9.7 mg/mg Normal [facility] Comment on above: Performed By: #### B MP #### [facility] [address] [place] [address] Dr. Josef Fraire CBC AUTO DIFFon 01-28-2022 BASO # 0.1 103/ul Normal 0.0-0.1 [facility] Comment on above: Performed By: #### C BC #### [facility] [address] [place] [address] Dr. Josef Fraire Basophils/100 WBC (Bld) 0.6 % Normal 0.2-2.0 [facility] Comment on above: Performed By: #### C BC #### [facility] [address] [place] [address] Dr. Josef Fraire EO # 0.2 103/ul Normal 0.0-0.7 [facility] Comment on above: Performed By: #### C BC #### [facility] [address] [place] [address] Dr. Josef Fraire Eosinophils/100 WBC (Bld) 1.5 % Normal 0.9-7.0 [facility] Comment on above: Performed By: #### C BC #### [facility] [address] [place] [address] Dr. Josef Fraire Erythrocyte distribution width (RBC) [Ratio] 13.4 % Normal 11.0-15.0 [facility] Comment on above: Performed By: #### C BC #### [facility] [address] [place] [address] Dr. Josef Fraire Hematocrit (Bld) [Volume fraction] 43.0 % Normal 36.0-48.0 [facility] Comment on above: Performed By: #### C BC #### [facility] [address] [place] [address] Dr. Josef Fraire Hemoglobin (Bld) [Mass/Vol] 14.6 g/dL Normal 12.0-16.0 [facility] Comment on above: Performed By: #### C BC #### [facility] [address] [place] [address] Dr. Josef Fraire IG # 0.05 10e3/ul Critically high 0.00-0.[address] [facility] Comment on above: Performed By: #### C BC #### [facility] [address] [place] [address] Dr. Josef Fraire IG % 0.5 % Normal 0.0-0.5 [facility] Comment on above: Performed By: #### C BC #### [facility] [address] [place] [address] Dr. Josef Fraire LYMPH # 3.1 103/ul Normal 1.2-3.8 [facility] Comment on above: Performed By: #### C BC #### [facility] [address] [place] [address] Dr. Josef Fraire Lymphocytes/100 WBC (Bld) 29.5 % Normal 20.5-60.0 [facility] Comment on above: Performed By: #### C BC #### [facility] [address] [place] [address] Dr. Josef Fraire MANUAL DIFF REQ NO Normal [facility] Comment on above: Performed By: #### C BC #### [facility] [address] [place] [address] Dr. Josef Fraire MCH (RBC) [Entitic mass] 30.0 pg Normal 26.7-34.0 [facility] Comment on above: Performed By: #### C BC #### [facility] [address] [place] [address] Dr. Josef Fraire MCHC (RBC) [Mass/Vol] 34.0 g/dL Normal 29.9-35.2 [facility] Comment on above: Performed By: #### C BC #### [facility] [address] [place] [address] Dr. Josef Fraire MCV (RBC) [Entitic vol] 88.3 fL Normal 81.0-99.0 [facility] Comment on above: Performed By: #### C BC #### [facility] [address] [place] [address] Dr. Josef Fraire MONO # 0.7 103/ul Normal 0.3-0.8 [facility] Comment on above: Performed By: #### C BC #### [facility] [address] [place] [address] Dr. Josef Fraire Monocytes/100 WBC (Bld) 6.8 % Normal 1.7-12.0 [facility] Comment on above: Performed By: #### C BC #### [facility] [address] [place] [address] Dr. Josef Fraire NEUT # 6.5 103/ul Normal 1.4-6.5 [facility] Comment on above: Performed By: #### C BC #### [facility] [address] [place] [address] Dr. Josef Fraire Neutrophils/100 WBC (Bld) 61.1 % Normal 43.0-75.0 [facility] Comment on above: Performed By: #### C BC #### [facility] [address] [place] [address] Dr. Josef Fraire Platelet mean volume (Bld) [Entitic vol] 10.7 fL Normal 9.5-13.5 [facility] Comment on above: Performed By: #### C BC #### [facility] [address] [place] [address] Dr. Josef Fraire PLT 313 103/ul Normal 150-450 [facility] Comment on above: Performed By: #### C BC #### [facility] [address] [place] [address] Dr. Josef Fraire RBC 4.87 106/ul Normal 4.20-5.40 [facility] Comment on above: Performed By: #### C BC #### [facility] [address] [place] [address] Dr. Josef Fraire WBC 10.7 103/ul Normal 4.0-11.0 [facility] Comment on above: Performed By: #### C BC #### [facility] [address] [address] [address] Josef Fraire ER URINE PROFILEon 2 Bilirubin Ql (U) Negative Normal NEGATIVE [facility] Comment on above: Performed By: #### E RUR #### [facility] [address] [place] [address] Dr. Josef Fraire Clarity (U) CLEAR Normal CLEAR [facility] Comment on above: Performed By: #### E RUR #### [facility] [address] [place] [address] Dr. Josef Fraire Color (U) LT. YELLOW Normal YELLOW [facility] Comment on above: Performed By: #### E RUR #### [facility] [address] [place] [address] Dr. Josef FISHER A micrscopic examination will be performed if indicated. Normal [facility] Comment on above: Performed By: #### E RUR #### [facility] [address] [place] [address] Dr. Josef Fraire Glucose Ql (U) Negative Normal NEGATIVE [facility] Comment on above: Performed By: #### E RUR #### [facility] [address] [place] [address] Dr. Josef Fraire Hemoglobin Ql (U) Negative Normal NEGATIVE [facility] Comment on above: Performed By: #### E RUR #### [facility] [address] [place] [address] Dr. Josef Fraire Ketones Ql (U) Negative Normal NEGATIVE [facility] Comment on above: Performed By: #### E RUR #### [facility] [address] [place] [address] Dr. Josef Fraire LEUKOCYTES Negative Normal NEGATIVE [facility] Comment on above: Performed By: #### E RUR #### [facility] [address] [place] [address] Dr. Josef Fraire Nitrite Ql (U) Negative Normal NEGATIVE [facility] Comment on above: Performed By: #### E RUR #### [facility] [address] [place] [address] Dr. Josef Fraire pH (U) 6.0 [pH] Normal 5-9 [facility] Comment on above: Performed By: #### E RUR #### [facility] [address] [place] [address] Dr. Josef Fraire SPEC GRAVITY <=1.005 Abnormal 1.005-<=1.025 [facility] Comment on above: Performed By: #### E RUR #### [facility] [address] [place] [address] Dr. Josef Fraire UA PROTEIN Negative Normal NEGATIVE/ TRACE [facility] Comment on above: Performed By: #### E RUR #### [facility] [address] [place] [address] Dr. Josef Fraire UR MICRO IND NOT INDICATED Normal [facility] Comment on above: Performed By: #### E RUR #### [facility] [address] [place] [address] Dr. Josef Fraire Urobilinogen Qn (U) 0.2 {Vero'U}/dL Normal 0.2 - 1. 0 [facility] Comment on above: Performed By: #### E RUR #### [facility] [address] [place] [address] Dr. Josef Fraire PROF CHEM 8 (BAS METB)on Anion gap [Moles/Vol] 14.6 mmol/L Normal [facility] Comment on above: Performed By: #### L IPID, CMP #### [facility] [address] [place] [address] Dr. Josef Fraire Calcium [Mass/Vol] 9.7 mg/dL Normal 8.5-10.1 [facility] Comment on above: Performed By: #### L IPID, CMP #### [facility] [address] [place] [address] Dr. Josef Fraire Chloride [Moles/Vol] 96 mmol/L Critically low 98-107 [facility] Comment on above: Performed By: #### L IPID, CMP #### [facility] [address] [address] [address] Josef Fraire CO2 [Moles/Vol] 25.8 mmol/L Normal 21.0-32.0 [facility] Comment on above: Performed By: #### L IPID, CMP #### [facility] [address] [place] [address] Dr. Josef Fraire Creatinine [Mass/Vol] 1.61 mg/dL Critically high 0.55-1.02 [facility] Comment on above: Performed By: #### L IPID, CMP #### [facility] [address] [address] [address] Josef Fraire EGFR-AF QATARI 38 mL/min/1.73m2 Critically low >=60 [facility] Comment on above: Performed By: #### L IPID, CMP #### [facility] [address] [place] [address] Dr. Josef Fraire EGFR-NON AF QATARI 32 mL/min/1.73m2 Critically low >=60 [facility] Comment on above: Performed By: #### L IPID, CMP #### [facility] [address] [address] [address] Josef Fraire Glucose [Mass/Vol] 119 mg/dL Critically high 74-106 [facility] Comment on above: Performed By: #### L IPID, CMP #### [facility] [address] [place] [address] Dr. Josef Fraire Potassium [Moles/Vol] 3.4 mmol/L Critically low 3.5-5.1 [facility] Comment on above: Result Comment: SPEC IMEN IS JUST SLIGHTLY HEMOLYZED AND SLIGHTLY LIPEMIC Performed By: #### L IPID, CMP #### [facility] [address] [address] [address] Josef Fraire Sodium [Moles/Vol] 133 mmol/L Critically low 136-145 [facility] Comment on above: Performed By: #### L IPID, CMP #### [facility] [address] [address] [address] Josef Fraire Urea nitrogen [Mass/Vol] 22.0 mg/dL Critically high 7.0-18.0 [facility] Comment on above: Performed By: #### L IPID, CMP #### [facility] [address] [place] [address] Dr. Josef Fraire Urea nitrogen/Creatinine [Mass ratio] 13.7 mg/mg Normal [facility] Comment on above: Performed By: #### L IPID, CMP #### [facility] [address] [place] [address] Dr. Josef Fraire TROPONIN, HIGH SENSITIVITYon 01-28-2022 HSTROP 8.3 pg/mL Normal 4.0-51.3 [facility] Comment on above: Result Comment: CUT- OFF POINTS HAVE BEEN ESTABLISHED BASED ON THE FOURTH UNIVERSAL DEFINITIONS OF MYOCARDIAL INFARCTION. THE UPPER REFERENCE LIMIT (URL) OF TROPONIN, DEFINED THE 99TH PERCENTILE OF cTnI DISTRIBUTION IN A REFERENCE POPULATION, HAS BEEN CONFIRMED THE DECISION THRESHOLD FOR VA DIAGNOSIS. Performed By: #### L IPID, CMP #### [facility] [address] [place] [address] Dr. Josef Fraire PROF CHEM 8 (BAS METB)on Anion gap [Moles/Vol] 14.6 mmol/L Normal [facility] Comment on above: Performed By: #### B MP #### [facility] [address] [place] [address] Dr. Josef Fraire Calcium [Mass/Vol] 10.6 mg/dL Critically high 8.5-10.1 [facility] Comment on above: Performed By: #### B MP #### [facility] [address] [place] [address] Dr. Josef Fraire Chloride [Moles/Vol] 97 mmol/L Critically low 98-107 [facility] Comment on above: Performed By: #### B MP #### [facility] [address] [place] [address] Dr. Josef Fraire CO2 [Moles/Vol] 29.5 mmol/L Normal 21.0-32.0 [facility] Comment on above: Performed By: #### B MP #### [facility] [address] [place] [address] Dr. Josef Fraire Creatinine [Mass/Vol] 1.34 mg/dL Critically high 0.55-1.02 [facility] Comment on above: Performed By: #### B MP #### [facility] [address] [address] [address] Josef Fraire EGFR-AF QATARI 47 mL/min/1.73m2 Critically low >=60 [facility] Comment on above: Performed By: #### B MP #### [facility] [address] [address] [address] Josef Fraire EGFR-NON AF QATARI 39 mL/min/1.73m2 Critically low >=60 [facility] Comment on above: Performed By: #### B MP #### [facility] [address] [address] [address] Josef Fraire Glucose [Mass/Vol] 88 mg/dL Normal 74-106 [facility] Comment on above: Performed By: #### B MP #### [facility] [address] [address] [address] Josef Fraire Potassium [Moles/Vol] 4.1 mmol/L Normal 3.5-5.1 [facility] Comment on above: Performed By: #### B MP #### [facility] [address] [address] [address] Josef Fraire Sodium [Moles/Vol] 137 mmol/L Normal 136-145 [facility] Comment on above: Performed By: #### B MP #### [facility] [address] [address] [address] Josef Fraire Urea nitrogen [Mass/Vol] 22.0 mg/dL Critically high 7.0-18.0 [facility] Comment on above: Performed By: #### B MP #### [facility] [address] [address] [address] Josef Fraire Urea nitrogen/Creatinine [Mass ratio] 16.4 mg/mg Normal [facility] Comment on above: Performed By: #### B MP #### [facility] [address] [place] [address] Dr. Josef Fraire PROF CHEM 8 (BAS METB)on Anion gap [Moles/Vol] 9.5 mmol/L Normal [facility] Comment on above: Performed By: #### B MP #### [facility] [address] [address] [address] Josef Fraire Calcium [Mass/Vol] 9.1 mg/dL Normal 8.5-10.1 [facility] Comment on above: Performed By: #### B MP #### [facility] [address] [address] [address] Josef Fraire Chloride [Moles/Vol] 96 mmol/L Critically low 98-107 [facility] Comment on above: Performed By: #### B MP #### [facility] [address] [place] [address] Dr. Josef Fraire CO2 [Moles/Vol] 32.5 mmol/L Critically high 21.0-32.0 [facility] Comment on above: Performed By: #### B MP #### [facility] [address] [place] [address] Dr. Josef Fraire Creatinine [Mass/Vol] 0.76 mg/dL Normal 0.55-1.02 [facility] Comment on above: Performed By: #### B MP #### [facility] [address] [place] [address] Dr. Josef Fraire EGFR-AF QATARI >60 Normal >=60 [facility] Comment on above: Performed By: #### B MP #### [facility] [address] [address] [address] Josef Fraire EGFR-NON AF QATARI >60 Normal >=60 [facility] Comment on above: Performed By: #### B MP #### [facility] [address] [address] [address] Josef Fraire Glucose [Mass/Vol] 95 mg/dL Normal 74-106 [facility] Comment on above: Performed By: #### B MP #### [facility] [address] [address] [address] Josef Fraire Potassium [Moles/Vol] 3.0 mmol/L Critically low 3.5-5.1 [facility] Comment on above: Performed By: #### B MP #### [facility] [address] [address] [address] Josef Fraire Sodium [Moles/Vol] 135 mmol/L Critically low 136-145 [facility] Comment on above: Performed By: #### B MP #### [facility] [address] [address] [address] Josef Fraire Urea nitrogen [Mass/Vol] 9.0 mg/dL Normal 7.0-18.0 [facility] Comment on above: Performed By: #### B MP #### [facility] [address] [address] [address] Josef Fraire Urea nitrogen/Creatinine [Mass ratio] 11.8 mg/mg Normal [facility] Comment on above: Performed By: #### B MP #### [facility] [address] [address] [address] Josef Fraire COVID-19 [facility] 12-21-2021 SARS-CoV-2 (COVID-19) RNA CHRIS+probe Ql (Unsp spec) Negative Normal Negative [facility] Comment on above: Order Comment: Healt hcare Worker?: N Result Comment: Testing for SARS-CoV-2 by RT-PCR This test was developed and its performance characteristics determined by [employer]) and validated at the [facility]. This test has not been FDA cleared [...] is terminated or revoked sooner. PERFORMED BY: [facility] [address] [place] [address] PATHOLOGIST TRAINING MGR JOSUÉ LEE M.D. Performed By: #### C OVID 19 [facility] #### [facility] [address] [place], [place] [address] COVID-19 Positive/NegativeOr dered By: Gabriel Qiu on 12-21-2021 SARS-CoV-2 (COVID-19) N gene CHRIS+probe Ql (Resp) Negative Negative [facility] Comment on above: Testing for SARS-CoV -2 by RT-PCR This test was developed and its performance characteristics determined by [employer] and validated at the [facility]. This test has not been FDA cleared [...] 11-27 Calcium [Mass/Vol] 9.7 mg/dL Normal 8.2-10.2 [facility] Comment on above: Result Comment: PERF ORMED BY: [facility] [address] [place] [address] PATHOLOGIST TRAINING MGR JOSUÉ LEE M.D. Performed By: #### C BC, BMP #### [id number] [facility] Chloride [Moles/Vol] 104 mmol/L Normal 95-114 [facility] Comment on above: Performed By: #### C BC, BMP #### [facility] [address] [id number] [place] CO2 [Moles/Vol] 26.9 mmol/L Normal 22.0-30.0 [facility] Comment on above: Performed By: #### C BC, BMP #### [facility] [address] Creatinine [Mass/Vol] 0.71 mg/dL Normal 0.44-1.03 [facility] Comment on above: Performed By: #### C BC, BMP #### [facility] [address] Estimated GFR ( Juliette > 60 Normal [facility] Comment on above: Result Comment: GFR estimated reference range: According to KDOQI guidelines, <60 ml/min/1.73m2 is sufficient to diagnose a patient with chronic kidney disease. Performed By: #### C BC, BMP #### [facility] [address] [place] [address] [place] Estimated GFR (Non- Am > 60 Normal [facility] Comment on above: Performed By: #### C BC, BMP #### [facility] [address] [place] [address] [place] Glucose [Mass/Vol] 81 mg/dL Normal 70-100 [facility] Comment on above: Result Comment: [place] Glucose Reference Range is dependent on time and content of last meal. Glucose of more than 200 mg/dL in a nonstressed, ambulatory subject supports the diagnosis of Diabetes Mellitus. ADA recommended reference range Performed By: #### C BC, BMP #### [facility] [address] [place] [address] [place] Potassium [Moles/Vol] 4.1 mmol/L Normal 3.5-5.1 [facility] Comment on above: Performed By: #### C BC, BMP #### [facility] [address] [place] [address] [place] Sodium [Moles/Vol] 138 mmol/L Normal 136-146 [facility] Comment on above: Performed By: #### C BC, BMP #### [facility] [address] Urea nitrogen [Mass/Vol] 7 mg/dL Low 9-23 [facility] Comment on above: Performed By: #### C BC, BMP #### [address] Basophils Auto (Bld) [#/Vol] Ordered By: Gabriel Qiu on 12-11-2021 Basophils (Bld) [#/Vol] 0.1 10*3/uL 0.0-0.2 [facility] Basophils/100 WBC Auto (Bld) Ordered By: Gabriel Qiu on 12-11-2021 Basophils/100 WBC (Bld) 0.9 % . [facility] Blood hemoglobin measurement (mass/volume)Ordered By: Gabriel Qiu on 12-11-2021 Hemoglobin (Bld) [Mass/Vol] 15.1 g/dL 11.8-15.4 [facility] Blood leukocytes automated c ount (number/volume)Ordered By: Gabriel Qiu on 12-11-2021 WBC (Bld) [#/Vol] 9.0 10*3/uL 4.5-11.0 [facility] Complete Blood Count Auto Di ffon 12-11-2021 Basophils (Bld) [#/Vol] 0.1 10*3/uL Normal 0.0-0.2 [facility] Comment on above: Result Comment: PERF ORMED BY: [place] [address] PATHOLOGIST TRAINING MGR JOSUÉ LEE M.D. Performed By: #### C AIDA, BMP #### [address] Basophils/100 WBC (Bld) 0.9 % Normal . [facility] Comment on above: Performed By: #### C BC, BMP #### [address] Eosinophils (Bld) [#/Vol] 0.1 10*3/uL Normal 0.0-0.45 [facility] Comment on above: Performed By: #### C BC, BMP #### [address] [place] [address] [place] Eosinophils/100 WBC (Bld) 1.3 % Normal . [facility] Comment on above: Performed By: #### C BC, BMP #### [address] Erythrocyte distribution width (RBC) [Ratio] 14.4 % Normal 11.9-15.3 [facility] Comment on above: Performed By: #### C BC, BMP #### [address] Hematocrit (Bld) [Volume fraction] 45.2 % Normal 34.0-46.4 [facility] Comment on above: Performed By: #### C BC, BMP #### [address] Hemoglobin (Bld) [Mass/Vol] 15.1 g/dL Normal 11.8-15.4 [facility] Comment on above: Performed By: #### C BC, BMP #### [address] Lymphocytes (Bld) [#/Vol] 1.8 10*3/uL Normal 1.00-4.8 [facility] Comment on above: Performed By: #### C BC, BMP #### [address] Lymphocytes/100 WBC (Bld) 19.7 % Normal . [facility] Comment on above: Performed By: #### C BC, BMP #### [address] MCH (RBC) [Entitic mass] 30.0 pg Normal 24.7-34.3 [facility] Comment on above: Performed By: #### C BC, BMP #### [address] MCV (RBC) [Entitic vol] 89.4 fL Normal 80-100 [facility] Comment on above: Performed By: #### C BC, BMP #### [address] Mean Corpuscular HGB Conc 33.5 g/dL Normal 32.0-35.0 [facility] Comment on above: Performed By: #### C BC, BMP #### [facility] [address] Monocytes (Bld) [#/Vol] 0.6 10*3/uL Normal 0.0-0.8 [facility] Comment on above: Performed By: #### C BC, BMP #### [facility] [address] Monocytes/100 WBC (Bld) 6.8 % Normal . [facility] Comment on above: Performed By: #### C AIDA, BMP #### [facility] [address] Neutrophils (Bld) [#/Vol] 6.4 10*3/uL Normal 1.8-7.7 [facility] Comment on above: Performed By: #### C AIDA, BMP #### [address] Neutrophils/100 WBC (Bld) 71.3 % Normal . [facility] Comment on above: Performed By: #### C AIDA, BMP #### [place] [address] [place] Nucleated RBC/100 WBC (Bld) [Ratio] 0.0 % Normal 0-0.5 [facility] Comment on above: Performed By: #### C AIDA, BMP #### [facility] [address] Platelet mean volume (Bld) [Entitic vol] 9.5 fL Normal 6.3-10.7 [facility] Comment on above: Performed By: #### C BC, BMP #### [facility] [address] [place] [address] [place] Platelets (Bld) [#/Vol] 245 10*3/uL Normal 150-450 [facility] Comment on above: Performed By: #### C BC, BMP #### [place] [address] [place] RBC (Bld) [#/Vol] 5.05 10*6/uL High 3.60-5.00 [facility] Comment on above: Performed By: #### C BC, BMP #### [facility] [address] [id number] [facility] WBC (Bld) [#/Vol] 9.0 10*3/uL Normal 4.5-11.0 [facility] Comment on above: Performed By: #### C AIDA, BMP #### [facility] [address] [id number] [facility] Creatinine and Glomerular fi ltration rate.predicted panel (S/P/Bld)Ordered By: Gabriel Qiu on 12-11-2021 Creatinine [Mass/Vol] 0.71 mg/dL 0.44-1.03 [facility] ECG 12 lead ECGon 12-11-2021 ECG 12 lead ECG [facility] [place] [address] [place] [address] Electrocardiograph Report Signed Patient: Sherri Villa MR#: [id number] : 1950 Acct:[id number] Age/Sex: 71 / F ADM Date: 12/11/21 Loc: Room: Type: [facility] Attending Dr: Gabriel Qiu DO Ordering Provider: [...] MUS Signed By Alberto Gray MD 0919 [facility] Eosinophils Auto (Bld) [#/Vo l]Ordered By: Gabriel Qiu on 12-11-2021 Eosinophils (Bld) [#/Vol] 0.1 10*3/uL 0.0-0.45 [facility] Eosinophils/100 WBC Auto (Bl d)Ordered By: Gabriel Qiu on 12-11-2021 Eosinophils/100 WBC (Bld) 1.3 % . [facility] Erythrocyte distribution wid th Auto (RBC) [Ratio]Ordered By: Gabriel Qiu on 12-11-2021 Erythrocyte distribution width (RBC) [Ratio] 14.4 % 11.9-15.3 [facility] Estimated glomerular filtrat ion rate (GFR) non- AmericanOrdered By: Gabriel Qiu on 12-11-2021 GFR/1.73 sq M.predicted among non-blacks MDRD (S/P/Bld) [Vol rate/Area] > 60 mL/Min [facility] Hematocrit Auto (Bld) [Volum e fraction]Ordered By: Gabriel Qiu on 12-11-2021 Hematocrit (Bld) [Volume fraction] 45.2 % 34.0-46.4 [facility] Laboratory - Hematology and Cell countsOrdered By: Gabriel Qiu on 12-11-2021 Nucleated RBC/100 WBC (Bld) [Ratio] 0.0 % 0-0.5 [facility] Lymphocytes Auto (Bld) [#/Vo l]Ordered By: Gabriel Qiu on 12-11-2021 Lymphocytes (Bld) [#/Vol] 1.8 10*3/uL 1.00-4.8 [facility] Lymphocytes/100 WBC Auto (Bl d)Ordered By: Gabriel Qiu on 12-11-2021 Lymphocytes/100 WBC (Bld) 19.7 % . [facility] MCH Auto (RBC) [Entitic mass ]Ordered By: Gabriel Qiu on 12-11-2021 MCH (RBC) [Entitic mass] 30.0 pg 24.7-34.3 [facility] MCHC Auto (RBC) [Mass/Vol]Or dered By: Gabriel Qiu on 12-11-2021 MCHC (RBC) [Mass/Vol] 33.5 g/dL 32.0-35.0 [facility] MCV Auto (RBC) [Entitic vol] Ordered By: Gabriel Qiu on 12-11-2021 MCV (RBC) [Entitic vol] 89.4 fL 80-100 [facility] Monocytes Auto (Bld) [#/Vol] Ordered By: Gabriel Qiu on 12-11-2021 Monocytes (Bld) [#/Vol] 0.6 10*3/uL 0.0-0.8 [facility] Monocytes/100 WBC Auto (Bld) Ordered By: Gabriel Qiu on 12-11-2021 Monocytes/100 WBC (Bld) 6.8 % . [facility] Neutrophils Auto (Bld) [#/Vo l]Ordered By: Gabriel Qiu on 12-11-2021 Neutrophils (Bld) [#/Vol] 6.4 10*3/uL 1.8-7.7 [facility] Neutrophils/100 WBC Auto (Bl d)Ordered By: Gabriel Qiu on 12-11-2021 Neutrophils/100 WBC (Bld) 71.3 % . [facility] No Panel InformationOrdered By: Gabriel Qiu on 12-11-2021 Estimated GFR () > 60 mL/Min [facility] Comment on above: GFR estimated refere nce range: According to KDOQI guidelines, <60 ml/min/1.73m2 is sufficient to diagnose a patient with chronic kidney disease. Pharmacy Creatinine Clearance (Chem N/A [facility] Platelet mean volume Auto (B ld) [Entitic vol]Ordered By: Gabriel Qiu on 12-11-2021 Platelet mean volume (Bld) [Entitic vol] 9.5 fL 6.3-10.7 [facility] Platelets Auto (Bld) [#/Vol] Ordered By: Gabriel Qiu on 12-11-2021 Platelets (Bld) [#/Vol] 245 10*3/uL 150-450 [facility] RBC Auto (Bld) [#/Vol]Ordere d By: Gabriel Qiu on 12-11-2021 RBC (Bld) [#/Vol] 5.05 10*6/uL 3.60-5.00 [facility] Serum or plasma calcium malcom urement (mass/volume)Ordered By: Gabriel Qiu on 12-11-2021 Calcium [Mass/Vol] 9.7 mg/dL 8.2-10.2 [facility] Serum or plasma chloride andreea surement (moles/volume)Ordered By: Gabriel Qiu on 12-11-2021 Chloride [Moles/Vol] 104 mmol/L 95-114 [facility] Serum or plasma glucose malcom urement (mass/volume)Ordered By: Gabriel Qiu on 12-11-2021 Glucose [Mass/Vol] 81 mg/dL 70-100 [facility] Comment on above: ADA recommended refe rence range Random Glucose Reference Range is dependent on time and content of last meal. Glucose of more than 200 mg/dL in a nonstressed, ambulatory subject supports the diagnosis of Diabetes Mellitus. Serum or plasma potassium me asurement (moles/volume)Ordered By: Gabriel Qiu on 12-11-2021 Potassium [Moles/Vol] 4.1 mmol/L 3.5-5.1 [facility] Serum or plasma sodium measu rement (moles/volume)Ordered By: Gabriel Qiu on 12-11-2021 Sodium [Moles/Vol] 138 mmol/L 136-146 [facility] Serum or plasma total carbon dioxide measurement (moles/volume)Ordered By: Gabriel Qiu on 12-11-2021 CO2 [Moles/Vol] 26.9 mmol/L 22.0-30.0 [facility] Serum or plasma urea nitroge n measurement (mass/volume)Ordered By: Gabriel Qiu on 12-11-2021 Urea nitrogen [Mass/Vol] 7 mg/dL 9-23 [facility] COVID-19 Antigenon 2 COVID-19 Antigen Healthcare Worker?: [...] developed and its performance characteristic determined by [employer] and validated at [facility]. This test has not been FDA cleared [...] for SARS Antigen by MARITZA PERFORMED BY: [place] [address] PATHOLOGIST TRAINING MGR JOSUÉ LEE M.D. Normal [facility] Comment on above: Performed By: #### C OVID-19 LE, SOFIANEG #### [address] COVID-19 SOFIAOrdered By: Ruben Ziegler on 11-03-2021 SARS-CoV+SARS-CoV-2 (COVID-19) Ag IA.rapid Ql (Resp) Negative Negative [facility] Comment on above: This is a duplicate Le SARS Antigen (MARITZA) result to be used for statistical tracking purpose only. No Panel InformationOrdered By: Gume Ziegler on 11-03-2021 SARS Antigen (LFIA) [facility] Le Ag Negativeon 11-04-19 22 Le Ag Negative Negative Normal Negative [facility] Comment on above: Result Comment: This is a duplicate Le SARS Antigen (MARITZA) result to be used for statistical tracking purpose only. PERFORMED BY: [place] [address] PATHOLOGIST TRAINING MGR JOSUÉ LEE M.D. Performed By: #### C OVID-19 REAL LUJAN #### [address] [place] [id number] [facility] MG MAMM SCREEN 3D TERESA CADon 10-27-2021 MG MAMM SCREEN 3D TERESA CAD Patient: SHERRI VILLA Exam Date: 10/27/2021 : 1950 Gender:F Ordering : SHAIKH Denise RAMIREZ . Admission #: [id number] Family : Order #: [id number] CLICK HERE TO VIEW EXAM RADIOLOGY REPORT [...] Treatments None Family Cancers None LOCATION: [facility] BREAST COMPOSITION: Scattered areas fibroglandular density. FINDINGS: [...] Phillips MD on 10/27/2021 at 14:15 Normal [facility] CBC AUTO DIFFon 10-13-2021 BASO # 0.0 103/ul Normal 0.0-0.1 [facility] Comment on above: Performed By: #### C BC #### [facility] [address] [address] [address] Josef Fraire Basophils/100 WBC (Bld) 0.5 % Normal 0.2-2.0 [facility] Comment on above: Performed By: #### C BC #### [facility] [address] [place] [address] Dr. Josef Fraire EO # 0.2 103/ul Normal 0.0-0.7 [facility] Comment on above: Performed By: #### C BC #### [facility] [address] [place] [address] Dr. Josef Fraire Eosinophils/100 WBC (Bld) 2.4 % Normal 0.9-7.0 [facility] Comment on above: Performed By: #### C BC #### [facility] [address] [place] [address] Dr. Josef Fraire Erythrocyte distribution width (RBC) [Ratio] 13.9 % Normal 11.0-15.0 [facility] Comment on above: Performed By: #### C BC #### [facility] [address] [place] [address] Dr. Josef Fraire Hematocrit (Bld) [Volume fraction] 44.7 % Normal 36.0-48.0 [facility] Comment on above: Performed By: #### C BC #### [facility] [address] [place] [address] Dr. Josef Fraire Hemoglobin (Bld) [Mass/Vol] 14.4 g/dL Normal 12.0-16.0 [facility] Comment on above: Performed By: #### C BC #### [facility] [address] [place] [address] Dr. Josef Fraire IG # 0.03 10e3/ul Normal 0.00-0.03 [facility] Comment on above: Performed By: #### C BC #### [facility] [address] [place] [address] Dr. Josef Fraire IG % 0.4 % Normal 0.0-0.5 [facility] Comment on above: Performed By: #### C BC #### [facility] [address] [place] [address] Dr. Josef Fraire LYMPH # 2.0 103/ul Normal 1.2-3.8 [facility] Comment on above: Performed By: #### C BC #### [facility] [address] [place] [address] Dr. Josef Fraire Lymphocytes/100 WBC (Bld) 25.1 % Normal 20.5-60.0 [facility] Comment on above: Performed By: #### C BC #### [facility] [address] [place] [address] Dr. Josef Fraire MANUAL DIFF REQ NO Normal [facility] Comment on above: Performed By: #### C BC #### [facility] [address] [place] [address] Dr. Josef Fraire MCH (RBC) [Entitic mass] 29.9 pg Normal 26.7-34.0 [facility] Comment on above: Performed By: #### C BC #### [facility] [address] [place] [address] Dr. Josef Fraire MCHC (RBC) [Mass/Vol] 32.2 g/dL Normal 29.9-35.2 [facility] Comment on above: Performed By: #### C BC #### [facility] [address] [place] [address] Dr. Josef Fraire MCV (RBC) [Entitic vol] 92.7 fL Normal 81.0-99.0 [facility] Comment on above: Performed By: #### C BC #### [facility] [address] [place] [address] Dr. Josef Fraire MONO # 0.5 103/ul Normal 0.3-0.8 [facility] Comment on above: Performed By: #### C BC #### [facility] [address] [place] [address] Dr. Josef Fraire Monocytes/100 WBC (Bld) 6.6 % Normal 1.7-12.0 [facility] Comment on above: Performed By: #### C BC #### [facility] [address] [place] [address] Dr. Josef Fraire NEUT # 5.1 103/ul Normal 1.4-6.5 [facility] Comment on above: Performed By: #### C BC #### [facility] [address] [place] [address] Dr. Josef Fraire Neutrophils/100 WBC (Bld) 65.0 % Normal 43.0-75.0 [facility] Comment on above: Performed By: #### C BC #### [facility] [address] [address] [address] Josef Fraire Platelet mean volume (Bld) [Entitic vol] 11.9 fL Normal 9.5-13.5 [facility] Comment on above: Performed By: #### C BC #### [facility] [address] [place] [address] Dr. Josef Fraire PLT 217 103/ul Normal 150-450 [facility] Comment on above: Performed By: #### C BC #### [facility] [address] [place] [address] Dr. Josef Fraire RBC 4.82 106/ul Normal 4.20-5.40 [facility] Comment on above: Performed By: #### C BC #### [facility] [address] [place] [address] Dr. Josef Fraire WBC 7.9 103/ul Normal 4.0-11.0 [facility] Comment on above: Performed By: #### C BC #### [facility] [address] [place] [address] Dr. Josef Fraire FERRITINon 10-13-2021 Ferritin [Mass/Vol] 56.0 ng/mL Normal 8.0-252.0 [facility] Comment on above: Performed By: #### F ERR #### [facility] [address] [place] [address] Dr. Josef Fraire LIPID PROFILEon 10-13-2021 CHOL-HDL RATIO NORM SEE BELOW Normal [facility] Comment on above: Result Comment: 3.3 - 4.4 LOW RISK 4.4 - 7.1 AVERAGE RISK 7.1 - 11.0 MODERATE RISK >11.0 HIGH RISK Performed By: #### L IPID, CMP #### [facility] [address] [place] [address] Dr. Josef Fraire Cholesterol [Mass/Vol] 156 mg/dL Normal <=200 [facility] Comment on above: Performed By: #### L IPID, CMP #### [facility] [address] [address] [address] Josef Fraire Cholesterol in HDL [Mass/Vol] 53 mg/dL Normal 40-60 [facility] Comment on above: Performed By: #### L IPID, CMP #### [facility] [address] [address] [address] Josef Fraire Cholesterol in LDL [Mass/Vol] 85.0 mg/dL Normal [facility] Comment on above: Performed By: #### L IPID, CMP #### [facility] [address] [place] [address] Dr. Josef Fraire Cholesterol.total/Dai sterol in HDL [Mass ratio] 2.9 {ratio} Normal [facility] Comment on above: Performed By: #### L IPID, CMP #### [facility] [address] [place] [address] Dr. Josef Fraire HDL NORMAL > or = 60 mg/dl - LOW CARDIOVASCULAR RISK <40 mg/dl - HIGH CARDIOVASCULAR RISK Normal [facility] Comment on above: Performed By: #### L IPID, CMP #### [facility] [address] [place] [address] Dr. Josef Fraire LDL CALC NORMAL SEE BELOW Normal [facility] Comment on above: Result Comment: <100 mg/dl OPTIMAL 100 - 129 mg/dl NEAR OR ABOVE OPTIMAL 130 - 159 mg/dl BORDERLINE HIGH 160 - 189 mg/dl HIGH >190 mg/dl VERY HIGH Performed By: #### L IPID, CMP #### [facility] [address] [place] [address] Dr. Josef Fraire Triglyceride [Mass/Vol] 90 mg/dL Normal <=150 T [facility] Comment on above: Performed By: #### L IPID, CMP #### [facility] [address] [place] [address] Dr. Josef Fraire VLDL CALC 18.0 mg/dL Normal [facility] Comment on above: Performed By: #### L IPID, CMP #### [facility] [address] [address] [address] Josef Fraire PROF 14(COMP METB)on 022 Albumin [Mass/Vol] 3.5 g/dL Normal 3.4-5.0 [facility] Comment on above: Performed By: #### L IPID, CMP #### [facility] [address] [address] [address] Josef Fraire Albumin/Globulin [Mass ratio] 1.0 {ratio} Normal [facility] Comment on above: Performed By: #### L IPID, CMP #### [facility] [address] [address] [address] Josef Fraire ALP [Catalytic activity/Vol] 90 U/L Normal 46-116 [facility] Comment on above: Performed By: #### L IPID, CMP #### [facility] [address] [address] [address] Josef Fraire ALT [Catalytic activity/Vol] 25 U/L Normal 14-59 [facility] Comment on above: Performed By: #### L IPID, CMP #### [facility] [address] [address] [address] Josef Fraire Anion gap [Moles/Vol] 9.0 mmol/L Normal [facility] Comment on above: Performed By: #### L IPID, CMP #### [facility] [address] [address] [address] Josef Fraire AST [Catalytic activity/Vol] 17 U/L Normal 15-37 [facility] Comment on above: Performed By: #### L IPID, CMP #### [facility] [address] [address] [address] Josef Friare Bilirubin [Mass/Vol] 0.4 mg/dL Normal 0.2-1.0 [facility] Comment on above: Performed By: #### L IPID, CMP #### [facility] [address] [address] [address] Josef Fraire Calcium [Mass/Vol] 9.1 mg/dL Normal 8.5-10.1 [facility] Comment on above: Performed By: #### L IPID, CMP #### [facility] [address] [address] [address] Josef Fraire Chloride [Moles/Vol] 105 mmol/L Normal 98-107 [facility] Comment on above: Performed By: #### L IPID, CMP #### [facility] [address] [address] [address] Josef Fraire CO2 [Moles/Vol] 27.9 mmol/L Normal 21.0-32.0 [facility] Comment on above: Performed By: #### L IPID, CMP #### [facility] [address] [address] [address] Josef Fraire Creatinine [Mass/Vol] 0.78 mg/dL Normal 0.55-1.02 [facility] Comment on above: Performed By: #### L IPID, CMP #### [facility] [address] [place] [address] Dr. Josef Fraire EGFR-AF QATARI >60 Normal >=60 [facility] Comment on above: Performed By: #### L IPID, CMP #### [facility] [address] [address] [address] Josef Fraire EGFR-NON AF QATARI >60 Normal >=60 [facility] Comment on above: Performed By: #### L IPID, CMP #### [facility] [address] [address] [address] Josef Fraire Globulin (S) [Mass/Vol] 3.5 g/dL Normal T [facility] Comment on above: Performed By: #### L IPID, CMP #### [facility] [address] [address] [address] Josef Fraire Glucose [Mass/Vol] 89 mg/dL Normal 74-106 [facility] Comment on above: Performed By: #### L IPID, CMP #### [facility] [address] [address] [address] Josef Fraire Potassium [Moles/Vol] 4.3 mmol/L Normal 3.5-5.1 [facility] Comment on above: Performed By: #### L IPID, CMP #### [facility] [address] [address] [address] Josef Fraire Protein [Mass/Vol] 7.0 g/dL Normal 6.4-8.2 [facility] Comment on above: Performed By: #### L IPID, CMP #### [facility] [address] [address] [address] Josef Fraire Sodium [Moles/Vol] 140 mmol/L Normal 136-145 [facility] Comment on above: Performed By: #### L IPID, CMP #### [facility] [address] [address] [address] Josef Fraire Urea nitrogen [Mass/Vol] 8.0 mg/dL Normal 7.0-18.0 [facility] Comment on above: Performed By: #### L IPID, CMP #### [facility] [address] [address] [address] Josef Fraire Urea nitrogen/Creatinine [Mass ratio] 10.2 mg/mg Normal [facility] Comment on above: Performed By: #### L IPID, CMP #### [facility] [address] [address] [address] Josef Fraire Vital Signs Date Time Vital Sign Value Performing Clinician Facility 06-23-2023 11:39-0500 Diastolic blood pressure 72 mm[Hg] Jolly Smith MD Work Phone: [facility] 06-23-2023 11:39-0500 Systolic blood pressure 110 mm[Hg] Jolly Smith MD Work Phone: [facility] 06-23-2023 10:49-0500 Heart rate 64 /min Jolly Smith MD Work Phone: [facility] 06-23-2023 10:48-0500 Body height 157.5 cm Jolly Smith MD Work Phone: [facility] 06-23-2023 10:48-0500 Body mass index (BMI) [Ratio] 26.34 kg/m2 Jolly Smith MD Work Phone: [facility] 06-23-2023 10:48-0500 Body weight 65.32 kg Jolly Smith MD Work Phone: [facility] 11-22-2022 09:10-0400 Body height 160.02 cm Gracia Woodruff Other [facility] Other 11-22-2022 09:10-0400 Body mass index (BMI) [Ratio] 25.98 kg/m2 Gracia Woodruff Other [facility] Other 11-22-2022 09:10-0400 Body temperature 97.8 [degF] Gracia Woodruff Other [facility] Other 11-22-2022 09:10-0400 Body weight 66.54 kg Gracia Woodruff Other [facility] Other 11-22-2022 09:10-0400 Diastolic blood pressure 56 mm[Hg] Gracia Woodruff Other [facility] Other 11-22-2022 09:10-0400 Respiratory rate 18 /min Gracia Woodruff Other [facility] Other 11-22-2022 09:10-0400 SaO2% (BldA) [Mass fraction] 95 % Gracia Woodruff Other [facility] Other 11-22-2022 09:10-0400 Systolic blood pressure 148 mm[Hg] Gracia Woodruff Other [facility] Other 12-23-2021 14:20-0400 Diastolic blood pressure 64 mm[Hg] DO Gume Ziegler Work Phone: [facility] 12-23-2021 14:20-0400 Heart rate 71 /min DO Gume Hykes Work Phone: [facility] 12-23-2021 14:20-0400 Respiratory rate 16 /min DO Gume Hykes Work Phone: [facility] 12-23-2021 14:20-0400 SaO2% (BldA) [Mass fraction] 96 % DO Gume Hykes Work Phone: [facility] 12-23-2021 14:20-0400 Systolic blood pressure 122 mm[Hg] DO Gume Hykes Work Phone: [facility] 12-23-2021 12:12-0400 Body height 157.48 cm DO Gume Hykes Work Phone: [facility] 12-23-2021 12:12-0400 Body mass index (BMI) [Ratio] 27 kg/m2 DO Gume Hykes Work Phone: [facility] 12-23-2021 12:12-0400 Body weight 67 kg DO Gume Hykes Work Phone: [facility] 12-23-2021 11:11-0400 Body temperature 97.9 [degF] DO Gume Hykes Work Phone: [facility] 11-05-2021 13:50-0400 Diastolic blood pressure 64 mm[Hg] DO Gume Hykes Work Phone: [facility] 11-05-2021 13:50-0400 Heart rate 77 /min DO Gume Hykes Work Phone: [facility] 11-05-2021 13:50-0400 Respiratory rate 16 /min DO Gume Hykes Work Phone: [facility] 11-05-2021 13:50-0400 SaO2% (BldA) [Mass fraction] 97 % DO Gume Hykes Work Phone: [facility] 11-05-2021 13:50-0400 Systolic blood pressure 118 mm[Hg] DO Gume Ziegler Work Phone: [facility] 11-05-2021 12:49-0400 Body height 160.02 cm DO Gume Ziegler Work Phone: [facility] 11-05-2021 12:49-0400 Body mass index (BMI) [Ratio] 25.3 kg/m2 DO Gume Ziegler Work Phone: [facility] 11-05-2021 12:49-0400 Body temperature 98.2 [degF] DO Gume Ziegler Work Phone: [facility] 11-05-2021 12:49-0400 Body weight 64.86 kg DO Gume Ziegler Work Phone: [facility] 05-06-2021 10:45-0500 Body height 160.02 cm Dede Garcia Other [facility] Other 05-06-2021 10:45-0500 Body mass index (BMI) [Ratio] 25.74 kg/m2 Dede Calvey Other [facility] Other 05-06-2021 10:45-0500 Body weight 65.91 kg Dede Calvrene Other [facility] Other 04-08-2021 15:15-0500 Body height 160.02 cm Dede Calvrene Other [facility] Other 04-08-2021 15:15-0500 Body mass index (BMI) [Ratio] 25.33 kg/m2 Dede Calvey Other [facility] Other 04-08-2021 15:15-0500 Body weight 64.86 kg Dede Calvey Other [facility] Other Encounters Encounter Date Encounter Type Care Provider Facility Start: 06-23-2023 End: 06-23-2023 Office outpatient new 45 minutes Jolly Smith MD Work Phone: [facility] Comment on above: Atrial 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, unspecified type ([facility]/HCC); Current every day smoker; Gastroesophageal reflux disease, unspecified whether esophagitis present; Hypercoagulable state due to 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 ([facility]/HCC); 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; Hyperlipidemia, unspecified hyperlipidemia type; Chest pain, unspecified type; Primary hypertension; Paroxysmal atrial 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 (CMS/HCC) Start: 06-01-2023 End: 06-01-2023 ambulatory ROONEY FAWWAD Not Available Start: 05-17-2023 End: 05-17-2023 ambulatory ROONEY FAWWAD Not Available Start: 11-22-2022 End: 11-22-2022 ambulatory Gracia Woodruff Other [facility] Other Start: 11-22-2022 Office outpatient vi sit 15 minutes Gracia Woodruff [facility] Start: 09-13-2022 ambulatory Facility:[facility] Start: 04-07-2022 End: 04-08-2022 ambulatory ROONEY H FAWWALucio Facility:[facility] Start: 01-28-2022 End: 01-28-[address] YORDAN BAÑUELOS Facility:[facility] Start: 01-27-2022 End: 01-28-2022 ambulatory ROONEY H FAWWAD Facility:[facility] Start: 01-18-2022 End: 01-19-2022 ambulatory ROONEY H FAWWAD Facility:[facility] Start: 12-23-2021 End: 12-23-2021 ambulatory Rooney Fawwad Facility:[facility] Start: 12-23-2021 End: 12-23-2021 Admission to same day surgery center DO Gume Ziegler Work Phone: [facility] [place] Start: 12-21-2021 End: 12-21-2021 ambulatory Rooney Fawwad Facility:[facility] Start: 12-21-2021 End: 12-21-2021 Patient encounter procedure DO Gume Ziegler Work Phone: [facility] Start: 12-11-2021 End: 12-11-2021 ambulatory Shaikh Janeelucio Facility:[facility] Start: 12-11-2021 End: 12-11-2021 Patient encounter procedure DO Gume Ziegler Work Phone: [facility] Start: 12-09-2021 End: 12-09-2021 ambulatory Gume Ziegler Other [facility] Other Start: 12-09-2021 Telephone encounter Gume Ziegler [facility] Start: 11-27-2021 End: 11-27-2021 ambulatory Gume Ziegler Other [facility] Other Start: 11-27-2021 Telephone encounter Gume Ziegler [facility] Start: 11-09-2021 End: 11-09-2021 ambulatory Gume Ziegler Other [facility] Other Start: 11-09-2021 Telephone encounter Gume Ziegler [facility] Start: 11-05-2021 End: 11-05-2021 ambulatory Gume Ziegler Facility:[facility] Start: 11-05-2021 End: 11-05-2021 Admission to same day surgery center DO Gume Toney Work Phone: [facility] Start: 11-03-2021 End: 11-03-2021 ambulatory Gume Tellezphilippe Facility:[facility] Start: 11-03-2021 End: 11-03-2021 Patient encounter procedure DO Gume Ziegler Work Phone: [facility] Start: 10-28-2021 End: 10-28-2021 ambulatory Gume Geoffphilippe Other [facility] Other Start: 10-28-2021 Telephone encounter Gume Ziegler [facility] Start: 10-27-2021 End: 10-28-2021 ambulatory SHAIKH Erika RAMIREZ Facility:[facility] Start: 10-13-2021 End: 10-14-2021 ambulatory SHAIKH Erika VUONGD Facility:[facility] Start: 05-06-2021 End: 05-06-2021 ambulatory Dede Garcia Other [facility] Other Start: 05-06-2021 Office outpatient vi sit 10 minutes Dede Calvey [facility] Start: 04-14-2021 End: 04-14-2021 ambulatory Jaime Paulino Other [facility] Other Start: 04-14-2021 Telephone encounter Jaime Paul[facility] Start: 04-08-2021 End: 04-08-2021 ambulatory Dedearturo Garcia Other [facility] Other Start: 04-08-2021 Office outpatient vi sit 15 minutes Dede Calvey [facility] Start: 03-11-2021 Office outpatient vi sit 15 minutes Dede Calvey [facility] Procedures Date Procedure Procedure Detail Performing Clinician Start: 06-23-2023 Ecg routine ecg w/le ast 12 lds w/i&r Jolly Smith MD Work Phone: Start: 12-23-2021 Hemorrhoidectomy DO Wes Ziegler Work Phone: Start: 11-05-2021 Diagnostic endoscopi c examination on colon DO Gume Ziegler Work Phone: SARS Antigen (LFIA) DO Gume Ziegler Work Phone: Plan of Treatment Date Care Activity Detail Author Start: 08-29-2031 DTaP/Tdap/Td Vaccine s (2 - Td or Tdap) DTaP/Tdap/Td Vaccines (2 - Td or Tdap) [facility] Start: 07-11-2023 End: 07-11-2023 Patient encounter procedure 07/11/2023 12:30 PM EST Office Visit [address] [place] [id number] Jolly Smith MD [address] [place] [address] [address] [place] [address] [facility] Start: 07-07-2023 End: 07-07-2023 Patient encounter procedure 07/07/2023 2:15 PM EST [facility]ment [facility] [address] [facility] [address] [place] [id number] [facility] Start: 07-07-2023 End: 07-07-2023 [facility] Start: 06-23-2023 End: 06-23-2024 CBC panel - Blood by Automated count CBC Lab Routine Hyperlipidemia, unspecified hyperlipidemia type Chest pain, unspecified type Primary hypertension Paroxysmal atrial 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 (CMS/HCC) Expected: 06/23/2023 (Approximate), Expires: 06/23/2024 [facility] Work Phone: Comment on above: Expected: 06/23/2023 (Approximate), Expires: 06/23/2024 Start: 06-23-2023 End: 06-23-2024 Comprehensive metabolic 2000 panel - Serum or Plasma Comprehensive Metabolic Panel Lab Routine Hyperlipidemia, unspecified hyperlipidemia type Chest pain, unspecified type Primary hypertension Paroxysmal atrial 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 (CMS/HCC) Expected: 06/23/2023 (Approximate), Expires: 06/23/2024 [facility] Work Phone: Comment on above: Expected: 06/23/2023 (Approximate), Expires: 06/23/2024 Start: 06-23-2023 End: 06-23-2024 Lipid 1996 panel - Serum or Plasma Lipid Panel Lab Routine Hyperlipidemia, unspecified hyperlipidemia type Chest pain, unspecified type Primary hypertension Paroxysmal atrial 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 (CMS/HCC) Expected: 06/23/2023 (Approximate), Expires: 06/23/2024 [facility] Work Phone: Comment on above: Expected: 06/23/2023 (Approximate), Expires: 06/23/2024 Start: 06-23-2023 End: 06-23-2025 NM Heart Perfusion W stress and W radionuclide IV Nuclear Stress Test Cardiac Nuclear Medicine Routine Hypercoagulable state due to 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 (CMS/HCC) snf current use of anticoagulant therapy Hyperlipidemia, unspecified hyperlipidemia type Chest pain, unspecified type Primary hypertension Paroxysmal atrial 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 (CMS/HCC) Expected: 06/23/2023 (Approximate), Expires: 06/23/2025 [facility] Work Phone: Comment on above: Expected: 06/23/2023 (Approximate), Expires: 06/23/2025 Start: 06-23-2023 End: 06-23-2024 Thyrotropin [Units/volume] in Serum or Plasma Thyroid Stimulating Hormone Lab Routine Hyperlipidemia, unspecified hyperlipidemia type Chest pain, unspecified type Primary hypertension Paroxysmal atrial 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 (CMS/HCC) Expected: 06/23/2023 (Approximate), Expires: 06/23/2024 [facility] Work Phone: Comment on above: Expected: 06/23/2023 (Approximate), Expires: 06/23/2024 Start: 06-23-2023 End: 06-23-2024 Thyroxine (T4) free [Mass/volume] in Serum or Plasma Thyroxine, Free Lab Routine Hyperlipidemia, unspecified hyperlipidemia type Chest pain, unspecified type Primary hypertension Paroxysmal atrial 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 (CMS/HCC) Expected: 06/23/2023 (Approximate), Expires: 06/23/2024 [facility] Work Phone: Comment on above: Expected: 06/23/2023 (Approximate), Expires: 06/23/2024 Start: 06-23-2023 End: 06-23-2024 Triiodothyronine (T3) [Mass/volume] in Serum or Plasma Triiodothyronine, Total Lab Routine Hyperlipidemia, unspecified hyperlipidemia type Chest pain, unspecified type Primary hypertension Paroxysmal atrial 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 (CMS/HCC) Expected: 06/23/2023 (Approximate), Expires: 06/23/2024 [facility] Work Phone: Comment on above: Expected: 06/23/2023 (Approximate), Expires: 06/23/2024 Start: 01-28-2023 COVID-19 Vaccine ( season) COVID-19 Vaccine ( season) [facility] Start: 12-23-2021 [facility] Work Phone: Start: 12-23-2021 [facility] Work Phone: Start: 11-05-2021 [facility] Work Phone: Start: 01-06-2020 Pneumococcal Vaccine : 65+ Years (2 - PPSV23 or PCV20) Pneumococcal Vaccine: 65+ Years (2 - PPSV23 or PCV20) [facility] Start: 1991 Screening for malign ant neoplasm of breast Mammogram [facility] Start: 09-10-1969 Diabetes mellitus screening Diabetes Screening [facility] Start: 09-10-1969 Hepatitis C screening Hepatitis C Sc reening [facility] Start: 1950 Lipid panel Lipid Panel [facility] Start: 1950 Medicare Annual Well ness Visit Medicare Annual Wellness Visit (AWV) [facility] Start: 1950 Screening for malign ant neoplasm of colon [facility] Start: 1950 Screening for osteoporosis Bone Density Scan [facility] Patient Education Hemorrhoids Diverticulosis Dicyclomine [facility] Work Phone: Immunizations Immunization Date Immunization Notes Care Provider Fa sarah 08-28-2021 COVID-19 mRNA-1273 (Moderna) DO Gume Ziegler Work Phone: [facility] 04-22-2021 COVID-19 mRNA-1273 (Moderna) DO Gume Ziegler Work Phone: [facility] 03-11-2021 Kenalog -40 mg Dede mathew Other [facility] Other 09-25-2020 COVID-19 mRNA-1273 (Moderna) DO Gume Ziegler Work Phone: [facility] 08-28-2020 COVID-19 mRNA-1273 (Moderna) DO Gume Ziegler Work Phone: [facility] 12-31-2019 Kenalog -40 mg Dede Bolanos y Other [facility] Other 04-23-2019 Kenalog -40 mg Dede Bolanos y Other [facility] Other Payers Date Payer Category Payer Unknown [id number] 2021 Self-pay [id number] 2021 Medicare [employer] MEDICARE A ETNA [employer]ED[employer] MEDICARE [id number] 2021-Present [address] [place] [address] [id number] 1959 Medicare [id number] 1951 Unknown [id number] [id number] 1951 Unknown [id number] [id number] 1951 Unknown [id number] [id number] 1951 Unknown [id number] [id number] 1951 Unknown [id number] 2.16.840.1.182932.3.579.2.593 1951 Unknown [id number] [id number] 1951 Unknown [id number] 2.16.840.1.929445.3.579.2.1259 1951 Unknown [id number] [id number] Medicare [id number] [id number] Unknown [id number] [id number] Unknown [id number] 2.16.840.1.910130.3.579.2.531 Unknown [id number] 2.16.840.1.203480.3.579.2.531 Unknown [id number] 2.16.840.1.080523.3.579.2.531 Unknown [id number] 2.16.840.1.768244.3.579.2.531 Unknown [id number] [id number] Social History Date Type Detail Facility Unknown if ever smoked [facility] Other Start: 06-23-2023 Sex Assigned At N [facility] Other Start: 12-23-2021 [facility] Start: 1950 Sex Assigned At Female F [facility] Start: 06-23-2023 Tobacco smoking stat [facility] Smokes tobacco daily [facility] [facility] History of tobacco use Cigarette Smoker [facility] Work Phone: Start: 06-23-2023 Cigarettes smoked current (pack per day) - Reported 0.3 [facility] Work Phone: Start: 06-23-2023 Tobacco use and exposure Smokeless tobacco non-user [facility] Work Phone: Start: 06-23-2023 Alcohol intake Lifetime non-d sadaf (finding) [facility] Work Phone: Start: 1950 Sex Assigned At Not on file [facility] Work Phone: Start: 06-13-2023 End: 06-23-2023 Exposure to SARS-CoV-2 (event) Not sure [facility] Goals Date Patient Goal Desired Activity /State Clinical Notes 03-11-2021 to 06-23-2023 Jolly Smith MD - 06/23/2023 11:15 AM ESTPatient Instructions Note Date & Type Note Facility 06-23-2023 History of Present illness Narrative Referred by for Establish Care and Atrial Fibrillation (Onset new afib) History Of Present Illness: Sherri Villa is a 72 y.o. female presenting with history of atrial 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. Prior records reviewed, patient presented to Dr. Correa with palpitations. A Holter showed 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. [id number] score 3 placed on metoprolol and Eliquis and echo was ordered. Cardiology referral was initiated. Difficult historian. She is a current smoker. She does have exertional shortness of breath functional class II/III. She denies palpitations at this time, however have palpitations palpitations with her atrial 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.She developed anterior chest discomfort and interscapular discomfort with atrial 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. She is status postcholecystectomy . She has chest discomfort if she were to bend and straighten gives history of a funny taste in the mouth, to a point where she does not even want to smoke cigarettes. She remains on GI prophylaxis. She says remotely she has had bleeding ulcer Her echo from 06/14/2023 was reviewed She appears younger than stated age of 72. No family history of premature coronary artery disease May have COPD No weight gain or weight loss 12 point review of systems is negative or noncontributory except as noted. Past Medical History: She has no past medical history on file. Past Surgical History: She has a past surgical history that includes Tonsilectomy, adenoidectomy, bilateral myringotomy and tubes; Gallbladder surgery; Hysterectomy; Hemorrhoid surgery; Knee arthroscopy w/ laser; and Eye surgery. Social History: She reports that she has been smoking cigarettes. She has been smoking an average of .25 packs per day. She has never used smokeless tobacco. She reports that she does not drink alcohol and does not use drugs. Family History: Family History Problem Relation Name Age of Onset Diabetes type I Mother Heart failure Mother Hypertension Mother Depression Sister Liver disease Brother Pancreatic cancer Brother Allergies: Ciprofloxacin, Codeine, Metronidazole, and Penicillin g Outpatient Medications: Current Outpatient Medications Medication Instructions albuterol 90 mcg/actuation inhaler 2 puffs, inhalation, Every 4 hours PRN alendronate (FOSAMAX) 70 mg, oral, Weekly Anoro Ellipta 62.5-25 mcg/actuation blister with device 1 puff, inhalation apixaban (ELIQUIS) 5 mg, oral, 2 times daily atorvastatin (LIPITOR) 10 mg, oral, Daily Calcium 500 With D 500 mg-10 mcg (400 unit) tablet 2 tablets, oral, Every 12 hours fluticasone (Flonase) 50 mcg/actuation nasal spray 2 sprays, Each Nostril, Daily, Shake gently. Before first use, prime pump. After use, clean tip and replace cap. losartan (COZAAR) 100 mg, oral, Daily metoprolol tartrate (Lopressor) 25 mg tablet 1 tablet, oral, 2 times daily pantoprazole (PROTONIX) 40 mg, oral, Daily pramipexole (MIRAPEX) 0.5 mg, oral, Nightly Last Recorded Vitals: Vitals: 06/23/23 1048 06/23/23 1049 06/23/23 1139 BP: 134/86 128/90 110/72 BP Location: Right arm Left arm Left arm Patient Position: Sitting Sitting Sitting Pulse: 64 Weight: 65.3 kg (144 lb) Height: 1.575 m (5' 2 ) Physical Exam: GENERAL APPEARANCE: Well developed, well nourished, in no acute distress. CHEST: Symmetric and non-tender. INTEGUMENT: Skin warm and dry, without gross excoriationis or lesions. HEENT: No gross abnormalities, no jugular venous distention no carotid bruit or scleral icterus NECK: Supple, no JVD, no bruit. Thyroid not palpable. Carotid upstrokes normal. NEURO/PSHCY: Alert and oriented x3; appropriate behavior and responses and responses, with normal balance and coordination LUNGS: Clear to auscultation bilaterally; normal respiratory effort. HEART: Rate and rhythm regular with no evident murmur; no gallop appreciated. There are no rubs, clicks or heaves. ABDOMEN: Soft, nontender, no masses or bruits. MUSCULOSKELETAL: No obvious deformity identified EXTREMITIES: Warm There is no edema noted. PERIPHERAL VASCULAR: Pulses present and equally palpable; 2+ throughout. 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 - Nuclear Stress Test; Future Hyperlipidemia, unspecified hyperlipidemia type - Nuclear Stress Test; Future - CBC; Future - Comprehensive Metabolic Panel; Future - Lipid Panel; Future - Triiodothyronine, Total; Future - Thyroxine, Free; Future - Thyroid Stimulating Hormone; Future Chest pain, unspecified type - Nuclear Stress Test; Future - CBC; Future - Comprehensive Metabolic Panel; Future - Lipid Panel; Future - Triiodothyronine, Total; Future - Thyroxine, Free; Future - Thyroid Stimulating Hormone; Future Primary hypertension - Nuclear Stress Test; Future - CBC; Future - Comprehensive Metabolic Panel; Future - Lipid Panel; Future - Triiodothyronine, Total; Future - Thyroxine, Free; Future - Thyroid Stimulating Hormone; Future Paroxysmal atrial 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 (CMS/HCC) - Nuclear Stress Test; Future - CBC; Future - Comprehensive Metabolic Panel; Future - Lipid Panel; Future - Triiodothyronine, Total; Future - Thyroxine, Free; Future - Thyroid Stimulating Hormone; Future Echocardiogram June 14, 2023-LVEF 55% grossly normal valves no pericardial effusion normal IVC normal aortic root mild tricuspid regurgitation RVSP 45 mmHg LV end-systolic diameter 3 cm, left atrial volume index 33 mm/m Holter monitor 05/30/2023 ( outside study ,interpretation only ):-average sinus rate 77 bpm with intermittent atrial 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 fastest rate 189 bpm in atrial 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 slowest rate 56 bpm isolated ventricular premature beats and ventricular bigeminy, 1 episode of nonsustained ventricular tachycardia of 16 beat duration, atrial 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 burden 9%, no bradycardia dysrhythmia. Symptoms of GERD despite prophylaxis Screening lung CT reported very small nodules, probably not pathologic, followed by primary care [id number] score 3 Postmenopausal female with several risk factors, her chest discomfort could be angina versus other, further workup is needed. Her EKG shows pattern of septal myocardial infarction which is unchanged compared to previous EKG in the chart. Do not see any recent laboratory data. I have ordered CBC comprehensive profile lipid profile Free T4 and TSH treadmill stress Myoview with plan to switch to Lexiscan Myoview as needed Consider twice daily Protonix? Follow-up after testing Thank you for allowing us to participate in Sherri's care, please do not hesitate to call if further questions arise, sincerely, Jolly Smith MD Provider Attestation - Scribe documentation All medical record entries made by the Scribe were at my direction and personally dictated by me. I have reviewed the chart and agree that the record accurately reflects my personal performance of the history, physical exam, discussion and plan. TANISHA SALAS LPN Scribe Attestation By signing my name below, I, Odilon Perera LPN attest that this documentation has been prepared under the direction and in the presence of Jolly Smith MD. documented in this encounter [facility] Work Phone: 06-23-2023 Instructions Alex Hawley MA - 06/23/2023 11:15 AM EST Please bring all medicines, vitamins, and herbal supplements with you when you come to the office. Prescriptions will not be filled unless you are compliant with your follow up appointments or have a follow up appointment scheduled as per instruction of your physician. Refills should be requested at the time of your visit. EKG done in office today documented in this encounter [facility] Work Phone: 11-22-2022 Evaluation note Encounter Date Diagnosis Assessment [...] sooner if significantly worsening or changing appearance. [facility] Other 06-01-2022 Evaluation note* Encounter Date Diagnosis Assessment Notes Treatment Notes Treatment Clinical Notes Oct, Blood in stool (ICD-10 - K92.1) [facility] Other 12-08-2021 Evaluation note* Encounter Date Diagnosis Assessment Notes Treatment Notes Treatment Clinical Notes Apr, Left wrist pain (ICD-10 - M25.532) Apr, De Quervain's tenosynovitis, left (ICD-10 - M65.4) Patient is progressing well. Discussed that since she is doing well with no concerns, we advised to keep an eye on conditon and to call with questions or concerns. 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 Instructed on use of topical NSAID to decrease residual pain and inflammation. Discussed further treatment as oral steroid as well as cortisone injection into the CMC joint. We will start with the medrol dose pack. Sent in with instructions on use. 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 We discussed first trying a cortisone injection. Should symptoms persist or worsen we could further discuss surgery. We performed a cortisone injection into the left wrist tendon sheath under sterile technique. Patient tolerated the injection well without adverse reaction. 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 Work Phone: Evaluation note* Diagnosis Atrial 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, unspecified type (CMS/HCC) Current every day smoker Gastroesophageal reflux disease, unspecified whether esophagitis present Hypercoagulable state due to 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 (CMS/HCC) snf current use of anticoagulant therapy Hyperlipidemia, unspecified hyperlipidemia type Chest pain, unspecified type Primary hypertension Unspecified essential hypertension Paroxysmal atrial 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 (CMS/HCC) Atrial 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 documented in this encounter [facility] Work Phone: History general Narrative - Reported* Type Description Date Medical History GERD Medical History PUD Medical History hyperlipidemia Medical History diverticulosis Medical History colon polyps Surgical History HYSTERECTOMY Surgical History APPENDECTOMY Surgical History HEMRRHOIDECTOMY 01/16/21 Hospitalization History SEE SURGERIES [facility] Other Chief Complaint and Reason for Visit Chief Complaint Blood in Stool Blood in Stool Rectal Bleeding, Hemorrhoids Rectal Bleeding, Hemorrhoids Rectal Bleeding, Hemorrhoids Reason for Visit Abdominal pain Blood in stool Family History Relationship Condition Age at Onset Recorded Date/T ramesh Not Specified Diabetes mellitus Unknown grandparent Diabetes mellitus Unknown grandparent Hepatic cirrhosis Unknown family member Malignant neoplasm Unknown Advance Directives Advance Directive Response Recorded Date/ Time Advance Directives No December 16 18 4:35pm Summary Purpose Reason for Referral Specialty Diagnoses / Procedures Referred By Contac t Referred To Contact Cardiology Diagnoses Hypercoagulable 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 due to 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 (CMS/HCC) [employer]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 Hyperlipidemia, unspecified hyperlipidemia type Chest pain, unspecified type Primary hypertension Paroxysmal atrial 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 (CMS/HCC) Procedures Nuclear Stress Test MN CV STRS TST XERS&/OR RX CONT ECG W/SI&R MN CV STRS TST XERS&/OR RX CONT ECG W/O I&R MN CV STRS TST XERS&/OR RX CONT ECG TRCG ONLY MN CV STRS TST XERS&/OR RX CONT ECG I&R ONLY CHG MYOCARDIAL SPECT MULTIPLE STUDIES Jolly Smith MD [address] [facility] [address] [place] [address] Referral ID Status Reason Start Date Expiration Date Visits Requested Visits Authorized [id number] Pending Review Perform Procedure 06/23/2023 06/22/2024 5 5 Specialty Diagnoses / Procedures Referred By Contac t Referred To Contact Diagnoses Atrial 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, unspecified type (CMS/HCC) Procedures ECG 12 Lead Jolly Smith MD [address] [facility] [address] [place] [address] Referral ID Status Reason Start Date Expiration Date V isits Requested Visits Authorized [id number] Authorized 06/23/2023 06/22/2024 1 1 Specialty Diagnoses / Procedures Referred By Contac t Referred To Contact Cardiology Diagnoses Atrial 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, unspecified type (CMS/HCC) Gastroesophageal reflux disease, unspecified whether esophagitis present Procedures Follow Up In Cardiology Jolly Smith MD [address] [facility] [address] [place] [address] Jolly Smith MD [address] [facility] [address] [place] [address] Referral ID Status Reason Start Date Expiration Date V isits Requested Visits Authorized [id number] Authorized 06/23/2023 06/22/2024 1 1 Additional Source Comments REASON FOR VISIT (unrecogniz ed section and content) Reason Comments Establish Care Atrial Fibrillation Onset new afib Specialty Diagnoses / Procedures Referred By Contac t Referred To Contact Diagnoses Atrial 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, unspecified type (CMS/HCC) Procedures ECG 12 Lead Jolly Smith MD [address] [facility] [address] [place] [address] Referral ID Status Reason Start Date Expiration Date V isits Requested Visits Authorized [id number] Authorized 06/23/2023 06/22/2024 1 1 Care Teams (unrecognized sec tion and content) Team Status: Inactive Member Role Status Dates Shaikh Ashley MD Primary Care Provider Active Gabriel Qiu DO Attending Provider Active Team Status: Inactive Member Role Status Dates Gume Ziegler , Attending Provider Active Shaikh Ashley MD Primary Care Provider Active Team Status: Active Member Role Status Dates Shaikh Ashley MD Primary Care Provider Active 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 Relationship Specialty Start Date End Date Shaikh Ramirez MD [address] [place], [place] [address] [address] PCP - General Internal Medicine 06/03/23 INFORMATION SOURCE (unrecogn ized section and content) DATE CREATED AUTHOR 04/12/2022 [facility] DATE CREATED AUTHOR AUTHOR'S ORGANIZ ATION 07/03/2022 [facility] DATE CREATED AUTHOR AUTHOR'S ORGANIZ ATION 03/25/2023 [facility] DATE CREATED AUTHOR AUTHOR'S ORGANIZ ATION 06/02/2023 [facility] FOR RECORDS PERTAINING TO PATIENTS WHO [...] BE BASED ON THE PRIMARY CLINICAL RECORDS. [employer] provides no warranty or guarantee of the accuracy or completeness of information in this document.
[2023-06-24 09:54] LABS: Basophils Absolute Auto 0.1 10^3/uL (0.0-0.1); Basophils Percent Auto 0.5 % (0.2-2.0); Eosinophils Absolute Auto 0.1 10^3/uL (0.0-0.7); Eosinophils Percent Auto 1.3 % (0.9-7.0); Hematocrit 43.3 % (36.0-48.0); Immature Granulocytes Abs Auto 0.05 10^3/uL (0.00-0.03); Immature Granulocytes Pct Auto 0.5 % (0.0-0.5); Lymphocytes Absolute Auto 2.1 10^3/uL (1.2-3.8); Lymphocytes Percent Auto 22.5 % (20.5-60.0); Mean Corpuscular HGB Conc 32.3 g/dL (29.9-35.2); Mean Corpuscular Hemoglobin 30.4 pg (26.7-34.0); Mean Corpuscular Volume 93.9 fL (81.0-99.0); Mean Platelet Volume 11.2 fL (9.5-13.5); Monocytes Absolute Auto 0.6 10^3/uL (0.3-0.8); Neutrophils Absolute Auto 6.3 10^3/uL (1.4-6.5); Neutrophils Percent Auto 68.2 % (43.0-75.0); Platelet Count 260 10^3/uL (150-450); Red Blood Count 4.61 10^6/uL (4.20-5.40); Red Cell Distribution Width 13.2 % (11.0-15.0); White Blood Count 9.2 10^3/uL (4.0-11.0)
[2023-06-24 10:05] LABS: Free T4 1.22 ng/dL (0.76-1.46)
[2023-06-24 11:34] LABS: Alanine Aminotransferase 26 U/L (14-59); Albumin Level 3.5 g/dL (3.4-5.0); Alkaline Phosphatase 80 U/L (46-116); Anion Gap 9.1; Aspartate Amino Transferase 14 U/L (15-37); Bilirubin Total 0.5 mg/dL (0.2-1.0); Calcium 9.4 mg/dL (8.5-10.1); Carbon Dioxide 31.1 mmol/L (21.0-32.0); Chloride 103 mmol/L (98-107); Chol HDL Ratio 3.1; Cholesterol 152 mg/dL (<=200); Estimated GFR (African America >60 (>=60); Estimated GFR (Non-African Ame 59 (>=60); Globulin 3.6 g/dL; Glucose 87 mg/dL (74-106); HDL Cholesterol 49 mg/dL (40-60); Potassium 4.2 mmol/L (3.5-5.1); Sodium 139 mmol/L (136-145); Thyroid Stimulating Hormone 2.124 uIU/mL (0.358-3.740); Total Protein 7.1 g/dL (6.4-8.2); Triglycerides 135 mg/dL (<=150)
[2023-06-25 09:09] LABS: Triiodothyronine (T3) 132 ng/dL (71-180)
== END 2023-06-24 08:42 | disposition home or self-care (01) ==
LOC: LAB 08:43
PROVIDERS: PCP Internal Medicine
DX: E78.5 Hyperlipidemia, unspecified (principal); R07.9 Chest pain, unspecified; I10 Essential (primary) hypertension; I48.0 Paroxysmal atrial 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
CPT/HCPCS: 36415; 80053; 80061; 84439; 84443; 84480; 85025

== ENCOUNTER 2023-07-14 08:44 | Outpatient (OUT) | payer MEDICARE, SELFPAY ==
[2023-07-14 08:56] LABS: Basophils Absolute Auto 0.1 10^3/uL (0.0-0.1); Basophils Percent Auto 0.7 % (0.2-2.0); Eosinophils Absolute Auto 0.1 10^3/uL (0.0-0.7); Eosinophils Percent Auto 1.9 % (0.9-7.0); Hematocrit 44.8 % (36.0-48.0); Hemoglobin 14.3 g/dL (12.0-16.0); Immature Granulocytes Abs Auto 0.02 10^3/uL (0.00-0.03); Immature Granulocytes Pct Auto 0.3 % (0.0-0.5); Lymphocytes Absolute Auto 2.4 10^3/uL (1.2-3.8); Lymphocytes Percent Auto 31.9 % (20.5-60.0); Mean Corpuscular HGB Conc 31.9 g/dL (29.9-35.2); Mean Corpuscular Hemoglobin 30.6 pg (26.7-34.0); Mean Corpuscular Volume 95.7 fL (81.0-99.0); Mean Platelet Volume 10.7 fL (9.5-13.5); Monocytes Absolute Auto 0.5 10^3/uL (0.3-0.8); Neutrophils Absolute Auto 4.4 10^3/uL (1.4-6.5); Neutrophils Percent Auto 58.2 % (43.0-75.0); Platelet Count 219 10^3/uL (150-450); Red Blood Count 4.68 10^6/uL (4.20-5.40); Red Cell Distribution Width 13.7 % (11.0-15.0); White Blood Count 7.5 10^3/uL (4.0-11.0)
--- OUTSIDE RECORDS SUMMARY | 2023-07-14 08:56 | XMS_ITS | CCD ---
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 Name Role Phone Dede Garcia Unavailable Jaime Paulino Unavailable Gume Ziegler Unavailable DO Gume Ziegler Attending Provider MD Nevin Ramirez Primary Care Provider [phone] DO Gabriel Qiu Attending Provider [phone] FAWWAD, ROONEY H Admitting Unavailable FAWWAD, [...] Unavailable FAWWAD, ROONEY H Primary Care Unavailable DR YORDAN BAÑUELOS Attending Unavailable SARMAD, DR FARR Consulting Unavailable [...] FAWWAD, ROONEY H Primary Care Unavailable Fawwad, Rooney Primary Care Unavailable Corinne, Gabriel Attending Unavailable Corinne, Gabriel Admitting Unavailable Fawwad, Rooney Primary Care Unavailable Corinne, Gabriel Attending Unavailable Corinne, Gabriel Admitting Unavailable Hyphilippe, Gume Stark Attending Unavailable Hykes, Gume Stark Admitting Unavailable Fawwad, Rooney Primary Care Unavailable Hyphilippe, Gume Stark Attending Unavailable Hykes, Gume Stark Admitting Unavailable Fawwad, Rooney Primary Care Unavailable Fawwad, Rooney Primary Care Unavailable Corinne, Gabriel Attending Unavailable Corinne, Gabriel Admitting Unavailable Gracia Woodruff Unavailable Shaikh Ramirez MD Primary Care Provider ASHLEY, ROONEY Attending Unavailable FAWWAD, ROONEY Attending Unavailable FAWWAD, ROONEY Attending Unavailable SMITH, NAZARIO Referring [facility]available [facility] Primary Care Unavailable SMITH, NAZARIO Attending Unavailable FAWWAD, [facility] Primary Care Unavailable SMITH, NAZARIO Referring Unavailable SMITH, NAZARIO Attending Unavailable SMITH, NAZARIO Referring Unavailable FAWWAD, ROONEY Primary Care Unavailable Ashley LEROY, Primary Care Provider [phone] Allergies Allergy Classification Reported Allergen(s) Allergy Type Date of Onset Reaction(s) Facility (15 sources) Ciprofloxacin; Translations: [CIPROFLOXACIN] Drug Allergy 4 Unknown [facility] (17 sources) Codeine; Translations: [CODEINE] Drug Allergy 2 [facility] (17 sources) metroNIDAZOLE; Translations: [METRONIDAZOLE] Drug Allergy 2 [facility] (9 sources) Penicillin V Drug Allergy [facility] Other (3 sources) Cefaclor; Translations: [cefaclor] Drug Allergy 2 [facility] (3 sources) Dicyclomine; Translations: [dicyclomine] Drug Allergy 2 [facility] (4 sources) Penicillins; Translations: [Penicillins] Allergy to substance 3 Rash [facility] (1 source) Adhesive agent Drug allergy (disorder) [facility] (1 source) Ciprofloxacin Drug Allergy 4 [facility] (1 source) Codeine Drug Allergy 3 [facility] (1 source) Latex Drug allergy (disorder) [facility] (1 source) NSAIDs Drug allergy (disorder) 3 [facility] (1 source) Codeine Drug Allergy 2 [facility] (1 source) metroNIDAZOLE Drug Allergy 2 [facility] (6 sources) Penicillin G; Translations: [PENICILLIN G] Drug Allergy 4 [facility] Work Phone: Medications Current Medications Medication Drug Class(es) Dates Sig (Normalized) Sig (Original) [id number] 200 actuat albuterol 0.09 mg/actuat metered dose inhaler (15 sources) beta2-Adrenergic Agonist Start: 03-02-2023 take 2 [...] Active alendronic acid 70 mg oral tablet (15 sources) Bisphosphonate Start: 05-29-2023 take 1 tablet [...] day Active apixaban 5 mg oral tablet (5 sources) Factor Xa Inhibitor Start: 07-11-2023 End: 07-10-2024 take 1 tablet by mouth twice daily apixaban (Eliquis) 5 mg tablet Indications: Paroxysmal atrial 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 (CMS/HCC) Take 1 tablet (5 mg) by mouth 2 times a day. 180 tablet 2 07/11/2023 07/10/2024 Active atorvastatin 10 mg oral tablet (16 sources) HMG-CoA Reductase Inhibitor Start: 05-01-2023 End: 07-10-2024 take 1 tablet by mouth once daily atorvastatin (Lipitor) 10 mg tablet Indications: Mixed hyperlipidemia Take 1 tablet (10 mg) by mouth once daily. 90 tablet 2 07/11/2023 07/10/2024 Active Start: 01-16-2021 take 10 mg by mouth once daily in the morning Atorvastatin Active 10 MG PO Every morning January 16, 2021 12:00am calcium carbonate 1250 mg / cholecalciferol 0.01 mg oral tablet (6 sources) Vitamin D Start: 09-01-2022 take 2 tablets by mouth every twelve hours Calcium 500 With D 500 mg-10 mcg (400 unit) tablet Take 2 tablets by mouth every 12 hours. 0 09/01/2022 Active Start: 11-03-2021 take 2 tablets by [facility] twice daily Calcium Carbonate-Vitamin D3 (Oyster Shell [...] Start: 12-18-2020 take 1 capsule by mo [facility] every twelve hours Colace 100 MG 1 CAPSULE Orally TWICE A DAY for 30 day(s) Nov, Not-Taking fluticasone propionate 0.05 mg/actuat metered dose nasal spray (4 sources) Corticosteroid take 2 spray(s) nasal route once [...] Active losartan potassium 100 mg oral tablet (5 sources) Angiotensin 2 Receptor Jessie Start: 2022 End: 2024 take 1 tablet by mouth once daily losartan (Cozaar) 100 mg tablet Indications: Primary hypertension Take 1 tablet (100 mg) by mouth once daily. 90 tablet 2 07/11/2023 07/10/2024 Active methylPREDNISolone 4 mg oral tablet (7 sources) Corticosteroid Start: 2020 Medrol 4 MG as directed Orally Mar, Active metoprolol tartrate 25 mg oral tablet (5 sources) beta-Adrenergic Jessie Start: 2023 End: 2024 take 1 tablet by mouth twice daily metoprolol tartrate (Lopressor) 25 mg tablet Indications: Primary hypertension Take 1 tablet (25 mg) by mouth 2 times a day. 180 tablet 3 07/11/2023 07/10/2024 Active pantoprazole 40 mg delayed release oral tablet (17 sources) Proton Pump Inhibitor Start: 2022 take 1 tablet by mouth twice daily pantoprazole (ProtoNix) 40 mg EC tablet Take 1 tablet (40 mg) by mouth 2 times a day. 0 03/14/2023 Active Start: 03-14-2023 take 1 tablet by chi once daily pantoprazole (ProtoNix) 40 mg EC [...] 1:12pm pramipexole dihydrochloride 0.5 mg oral tablet (15 sources) Nonergot Dopamine Agonist Start: 04-03-2023 take [...] / vilanterol 0.025 mg/actuat dry powder inhaler (14 sources) Anticholinergic , beta2-Adrenergi c Agonist Start: [...] 03, 2021 12:00am December 11, 2021 8:23am Tc-99m tetrofosmin (Myoview) injection 34.4 millicurie (1 source) Start: 07-07-2023 End: 07-07-2023 Tc-99m tetrofosmin (Myoview) injection 34.4 millicurie Triamcinolone (15 sources) Corticosteroid Start: 03-11-2021 Kenalog [...] [ACUTE KIDNEY FAILURE UNSPECIFIED] Onset: 2 Episodic Administrative/social admission (4 sources) Person consulting for explanation of examination or test findings; Translations: [Follow-up status] Onset: 4 Episodic Allergic reactions (1 source) Idiopathic urticaria Episodic Cardiac dysrhythmias (18 sources) Atrial 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; Translations: [Unspecified atrial 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] Onset: 4 Resolved: 4 06-23-2023 Chronic Coagulation and hemorrhagic disorders (10 sources) Other thrombophilia; Translations: [Secondary hypercoagulable state] Onset: 4 06-23-2023 Chronic Conditions associated with dizziness or vertigo (4 sources) Dizziness and giddiness; Translations: [DIZZINESS AND GIDDINESS] Onset: 2 Episodic Disorders of lipid metabolism (13 sources) Hyperlipidemia, unspecified; Translations: [Hyperlipidemia] Onset: 2 06-23-2023 Chronic Diverticulosis and diverticulitis (18 sources) Diverticulosis of sigmoid colon; Translations: [Diverticulosis of large intestine without perforation or abscess without bleeding] Chronic Esophageal disorders (8 sources) Gastroesophageal reflux disease; Translations: [Gastro-esophageal reflux disease without esophagitis] Onset: 4 06-23-2023 Chronic Essential hypertension (14 sources) Essential (primary) hypertension; Translations: [Essential hypertension] Onset: 2 Chronic Fluid and electrolyte disorders (1 source) Dehydration; Translations: [DEHYDRATION] Onset: 2 Episodic Hemorrhoids (2 sources) Hemorrhoids; Translations: [Unspecified hemorrhoids] 12-23-2021 Episodic Nonspecific chest pain (9 sources) Chest pain; Translations: [Chest pain, unspecified] Onset: 4 06-23-2023 Episodic Osteoarthritis (20 sources) Arthritis of left wrist; Translations: [Primary osteoarthritis, left wrist] Onset: 1 Resolved: 1 Chronic Other aftercare (1 source) Other mcc (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 therapy; Translations: [OTH INTERMEDIATE CURRENT DRUG THERAPY] Onset: 2 Episodic Other aftercare (6 sources) Long-term current use of anticoagulant; Translations: [snf (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 anticoagulants] Onset: 4 06-23-2023 Episodic Other aftercare (4 sources) long term care social worker (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 anticoagulants; Translations: [long term care social worker (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 anticoagulants] Onset: 4 Episodic Other and unspecified benign neoplasm (9 [...] Translations: [MYOCLONUS] Onset: 2 Chronic Substance-related disorders (8 sources) Smokes tobacco daily; Translations: [Nicotine dependence, [...] MALIG NEOPLASM BREAST] Onset: 10-27-2021 Episodic Unclassified (4 sources) Onset: 06-23-2023 Resolved: 07-11-2023 06-23-2023 Results Test Name Value Interpretation Reference Range Facility [facility] Heart Perfusion W stress and W radionuclide Jesse 07-07-2023 Normal Lexiscan Myoview cardiac perfusion stress test. No evidence of ischemia or myocardial infarction by perfusion imaging. Normal left ventricular systolic function, ejection fraction 77%. No previous studies are available for comparison. Signed by: Luisa Cabrera 07/07/2023 4:22 PM Dictation workstation: [id number] Interpreted By: Luisa Cabrera and Beal Gina STUDY: MYOCARDIAL PERFUSION STRESS TEST WITH LEXISCAN Performing facility: [facility], [address] [place] [address], [address], [address] Provider: Nazario Smith MD, FACC PCP: Dr. Reyna RAMIREZ Supervising provider: Nazario Smith MD, FACC INDICATION: Atherosclerosis of coronary artery of [place] heart without angina pectoris, unspecified vessel or lesion type I25.10 (ICD-10-CM); Chest pain, unspecified type R07.9 (ICD-10-CM) HISTORY: Gender: F; Age: 72 y/o ; Height: HT 157.5 cm cm; Weight: WT 65.318 kg kg. CAD; Chest Pain; HTN; COPD; SOB; Arrhythmias; AFib, Palpitations; Currently smoking. COMPARISON: No comparison. ACCESSION NUMBER(S): [id number] ORDERING CLINICIAN: NAZARIO SMITH TECHNIQUE: ONE DAY protocol. Stress injection: Date:07/07/23, 34.4 mCi of Myoview IV 20 seconds after rapid injection of Lexiscan. Rest injection: Date: 07/07/23, 11.2 mCi of Myoview IV at rest. The patient had a rapid injection of 0.4 mg of Lexiscan IV over 10 seconds. Imaging was performed by gated tomographic technique. Reason for Lexiscan: CONVERTED DUE TO LEG PAIN STRESS TEST DATA: Resting heart rate was 59 BPM. Resting blood pressure was 134/64 mmHg. Peak blood pressure was 122/68 mmHg. Peak heart rate was 90 BPM. TEST TERMINATED DUE TO: Protocol completed FINDINGS: STRESS TEST RESULTS: Resting electrocardiogram revealed sinus bradycardia. There were no significant ischemic ECG changes or dysrhythmias. The patient did not have chest pains/symptoms during procedure. There was a normal recovery phase. IMAGING RESULTS: Image quality was good, slight motion artifact is noted. Rest and stress tomographic images were reviewed and revealed normal perfusion without evidence of ischemia, myocardial infarction, or left ventricular dilatation with stress. Overall left ventricular systolic function appeared to be normal without regional wall motion abnormalities. Ejection fraction was 77%. TID is 1.0 and is normal. There was evidence of motion artifact. MMODAL Luisa Cabrera M D - 07/07/2023 Interpreted By: Luisa Cabrera and Beal Gina STUDY: MYOCARDIAL PERFUSION STRESS TEST WITH LEXISCAN Performing facility: [facility], [address] [place] [address], [address], [address] Provider: Nazario Smith MD, [facility] PCP: Dr. Reyna RAMIREZ Supervising provider: Nazario Smith MD, [facility] INDICATION: Atherosclerosis of coronary artery of [place] heart without angina pectoris, unspecified vessel or lesion type I25.10 (ICD-10-CM); Chest pain, unspecified type R07.9 (ICD-10-CM) HISTORY: Gender: F; Age: 72 y/o ; Height: HT 157.5 cm cm; Weight: WT 65.318 kg kg. CAD; Chest Pain; HTN; COPD; SOB; Arrhythmias; AFib, Palpitations; Currently smoking. COMPARISON: No comparison. ACCESSION NUMBER(S): [id number] ORDERING CLINICIAN: NAZARIO SMITH TECHNIQUE: ONE DAY protocol. Stress injection: Date:07/07/23, 34.4 mCi of Myoview IV 20 seconds after rapid injection of Lexiscan. Rest injection: Date: 07/07/23, 11.2 mCi of Myoview IV at rest. The patient had a rapid injection of 0.4 mg of Lexiscan IV over 10 seconds. Imaging was performed by gated tomographic technique. Reason for Lexiscan: CONVERTED DUE TO LEG PAIN STRESS TEST DATA: Resting heart rate was 59 BPM. Resting blood pressure was 134/64 mmHg. Peak blood pressure was 122/68 mmHg. Peak heart rate was 90 BPM. TEST TERMINATED DUE TO: Protocol completed FINDINGS: STRESS TEST RESULTS: Resting electrocardiogram revealed sinus bradycardia. There were no significant ischemic ECG changes or dysrhythmias. The patient did not have chest pains/symptoms during procedure. There was a normal recovery phase. IMAGING RESULTS: Image quality was good, slight motion artifact is noted. Rest and stress tomographic images were reviewed and revealed normal perfusion without evidence of ischemia, myocardial infarction, or left ventricular dilatation with stress. Overall left ventricular systolic function appeared to be normal without regional wall motion abnormalities. Ejection fraction was 77%. TID is 1.0 and is normal. There was evidence of motion artifact. IMPRESSION: Normal Lexiscan Myoview cardiac perfusion stress test. No evidence of ischemia or myocardial infarction by perfusion imaging. Normal left ventricular systolic function, ejection fraction 77%. No previous studies are available for comparison. Signed by: Luisa Cabrera 07/07/2023 4:22 PM Dictation workstation: [id number] [facility] Work Phone: Radiology Study observation (narrative) [facility] Work Phone: NM Heart Perfusion W stress and W radionuclide IVOrdered By: Luisa Cabrera on 07-07-2023 [facility] Work Phone: NUCLEAR STRESS TESTon 2023 NUCLEAR STRESS TEST Interpreted By: Luisa Cabrera and Beal Gina STUDY: MYOCARDIAL PERFUSION STRESS TEST WITH LEXISCAN Performing facility: [facility], [address] [place] [address], [address], [place] [id number] [facility] Provider: Nazario Smith MD, FACC PCP: Dr. Reyna RAMIREZ Supervising provider: Nazario Smith MD, FACC INDICATION: Atherosclerosis of coronary artery of [place] heart without angina pectoris, unspecified vessel or lesion type I25.10 (ICD-10-CM); Chest pain, unspecified type R07.9 (ICD-10-CM) HISTORY: Gender: F; Age: 72 y/o ; Height: HT 157.5 cm cm; Weight: WT 65.318 kg kg. CAD; Chest Pain; HTN; COPD; SOB; Arrhythmias; AFib, Palpitations; Currently smoking. COMPARISON: No comparison. ACCESSION NUMBER(S): [id number] ORDERING CLINICIAN: NAZARIO SMITH TECHNIQUE: ONE DAY protocol. Stress injection: Date:07/07/23, 34.4 mCi of Myoview IV 20 seconds after rapid injection of Lexiscan. Rest injection: Date: 07/07/23, 11.2 mCi of Myoview IV at rest. The patient had a rapid injection of 0.4 mg of Lexiscan IV over 10 seconds. Imaging was performed by gated tomographic technique. Reason for Lexiscan: CONVERTED DUE TO LEG PAIN STRESS TEST DATA: Resting heart rate was 59 BPM. Resting blood pressure was 134/64 mmHg. Peak blood pressure was 122/68 mmHg. Peak heart rate was 90 BPM. TEST TERMINATED DUE TO: Protocol completed FINDINGS: STRESS TEST RESULTS: Resting electrocardiogram revealed sinus bradycardia. There were no significant ischemic ECG changes or dysrhythmias. The patient did not have chest pains/symptoms during procedure. There was a normal recovery phase. IMAGING RESULTS: Image quality was good, slight motion artifact is noted. Rest and stress tomographic images were reviewed and revealed normal perfusion without evidence of ischemia, myocardial infarction, or left ventricular dilatation with stress. Overall left ventricular systolic function appeared to be normal without regional wall motion abnormalities. Ejection fraction was 77%. TID is 1.0 and is normal. There was evidence of motion artifact. IMPRESSION: Normal Lexiscan Myoview cardiac perfusion stress test. No evidence of ischemia or myocardial infarction by perfusion imaging. Normal left ventricular systolic function, ejection fraction 77%. No previous studies are available for comparison. Signed by: Luisa Cabrera 07/07/2023 4:22 PM Dictation workstation: [id number] [facility] ECG 12 [place] 06-23-2023 [facility] Work Phone: Patient Letter FTMCon 2022 Patient Letter [facility] March 23, 2023 SHERRI VILLA [address] [facility] [place] [address] : 1950 Dear Sherri, This is a reminder that you are due for an appointment with [facility]. Please contact our office at [phone] to schedule an appointment at your earliest convenience. Thank you, [facility] Normal [facility] Reminderson 03-23-2023 Reminders - From: Juliane Gillis MA To: [facility] - Reminders/Recalls; Sent: 02/04/2023 13:34:26 EDT Show up: 02/04/2023 13:34:00 EDT Subject: colon recall Reminder Message 10 year recall Salam 09/22/12 first recall letter second recall letter Normal [facility] Patient Letter FTon 2022 Patient Letter [facility] February 07, 2023 SHERRI V[address]A [address] [place] [address] : 1950 Dear Sherri, This is a reminder that you are due for an appointment with [facility]. Please contact our office at [phone] to schedule an appointment at your earliest convenience. Thank you, [facility] Normal [facility] Patient Letter FTon 2022 Patient Letter FT September 29, 2022 SH[address]RI [address]A [address] [place] [address] SHAUN SHERRI 1950 Dear Sherri, This is a SECOND ATTEMPT to remind you that you are due for an appointment with [facility]. Please contact our office at [phone] to schedule an appointment at your earliest convenience. Thank you, [facility] Normal [facility] Reminderson 09-29-2022 Reminders - From: Ligia Roberts To: [facility] - Reminders/Recalls; Sent: 09/13/2022 10:56:07 EDT Show up: 09/13/2022 10:56:00 EDT Subject: Ambulatory Reminder Reminder/Recall arturo aguilar 10 year colon recall 09/19/2022 first recall letter second recall letter Normal [facility] Patient Letter FTon 2022 Patient Letter [facility] September 13, 2022 SH[address]RI [address]A [address] [place] [address] SHERRI VILLA 1950 Dear Sherri, This is a reminder that you are due for an appointment with [facility]. Please contact our office at [phone] to schedule an appointment at your earliest convenience. Thank you, [facility] Normal [facility] PROF CHEM 8 (BAS METB)on Anion gap [Moles/Vol] 10.8 mmol/L Normal [facility] Comment on above: Performed By: #### B MP #### [facility] [address] [place] [address] Dr. Josef Fraire Calcium [Mass/Vol] 9.4 mg/dL Normal 8.5-10.1 [facility] Comment on above: Performed By: #### B MP #### [facility] [address] [place] [address] [address] Josef Fraire Chloride [Moles/Vol] 104 mmol/L Normal 98-[address] [facility] Comment on above: Performed By: #### B MP #### [facility] [address] [place] [address] [address] Josef Fraire CO2 [Moles/Vol] 28.4 mmol/L Normal 21.0-32.0 [facility] Comment on above: Performed By: #### B MP #### [facility] [address] [place] [address] [address] Josef Fraire Creatinine [Mass/Vol] 1.03 mg/dL Critically high 0.55-1.[address] [facility] Comment on above: Performed By: #### B MP #### [facility] [address] [place] [address] [address] Josef Fraire EGFR-AF BARBADIAN >60 Normal >=60 [facility] Comment on above: Performed By: #### B MP #### [facility] [address] [place] [address] [address] Josef Fraire EGFR-NON AF BAR[place]IAN 53 mL/min/1.73m2 Critically low >=[address] [facility] Comment on above: Performed By: #### B MP #### [facility] [address] [place] [address] [address] Josef Fraire Glucose [Mass/Vol] 82 mg/dL Normal 74-106 [facility] Comment on above: Performed By: #### B MP #### [facility] [address] [place] [address] [address] Josef Fraire Potassium [Moles/Vol] 4.2 mmol/L Normal 3.5-5.[address] [facility] Comment on above: Performed By: #### B MP #### [facility] [address] [place] [address] [address] Josef Fraire Sodium [Moles/Vol] 139 mmol/L Normal 136-145 [facility] Comment on above: Performed By: #### B MP #### [facility] [address] [place] [address] Dr. Josef Fraire Urea nitrogen [Mass/Vol] 10.0 mg/dL Normal 7.0-18.[address] [facility] Comment on above: Performed By: #### B MP #### [facility] [address] [place] [address] [address] Josef Fraire Urea nitrogen/Creatinine [Mass ratio] 9.7 mg/mg Normal [facility] Comment on above: Performed By: #### B MP #### [facility] [address] [place] [address] [address] Josef Fraire CBC AUTO DIFFon 01-28-2022 BASO # 0.1 103/ul Normal 0.0-0.[address] [facility] Comment on above: Performed By: #### C BC #### [facility] [address] [place] [address] [address] Josef Fraire Basophils/100 WBC (Bld) 0.6 % Normal 0.2-2.[address] [facility] Comment on above: Performed By: #### C BC #### [facility] [address] [place] [address] [address] Josef Fraire EO # 0.2 103/ul Normal 0.0-0.[address] [facility] Comment on above: Performed By: #### C BC #### [facility] [address] [place] [address] Dr. Josef Fraire Eosinophils/100 WBC (Bld) 1.5 % Normal 0.9-7.[address] [facility] Comment on above: Performed By: #### C BC #### [facility] [address] [place] [address] Dr. Josef Fraire Erythrocyte distribution width (RBC) [Ratio] 13.4 % Normal 11.0-15.[address] [facility] Comment on above: Performed By: #### C BC #### [facility] [address] [place] [address] Dr. Josef Fraire Hematocrit (Bld) [Volume fraction] 43.0 % Normal 36.0-48.[address] [facility] Comment on above: Performed By: #### C BC #### [facility] [address] [place] [address] Dr. Josef Fraire Hemoglobin (Bld) [Mass/Vol] 14.6 g/dL Normal 12.0-16.[address] [facility] Comment on above: Performed By: #### C BC #### [facility] [address] [place] [address] Dr. Josef Fraire IG # 0.05 10e3/ul Critically high 0.00-0.03 [facility] Comment on above: Performed By: #### C BC #### [facility] [address] [place] [address] Dr. Josef Fraire IG % 0.5 % Normal 0.0-0.[address] [facility] Comment on above: Performed By: #### C BC #### [facility] [address] [place] [address] Dr. Josef Fraire LYMPH # 3.1 103/ul Normal 1.2-3.8 [facility] Comment on above: Performed By: #### C BC #### [facility] [address] [place] [address] Dr. Josef Fraire Lymphocytes/100 WBC (Bld) 29.5 % Normal 20.5-60.[address] [facility] Comment on above: Performed By: #### C BC #### [facility] [address] [place] [address] Dr. Josef Fraire MANUAL DIFF REQ NO Normal [facility] Comment on above: Performed By: #### C BC #### [facility] [address] [place] [address] Dr. Josef Fraire MCH (RBC) [Entitic mass] 30.0 pg Normal 26.7-34.[address] [facility] Comment on above: Performed By: #### C BC #### [facility] [address] [place] [address] Dr. Josef Fraire MCHC (RBC) [Mass/Vol] 34.0 g/dL Normal 29.9-35.[address] [facility] Comment on above: Performed By: #### C BC #### [facility] [address] [place] [address] Dr. Josef Fraire MCV (RBC) [Entitic vol] 88.3 fL Normal 81.0-99.[address] [facility] Comment on above: Performed By: #### C BC #### [facility] [address] [place] [address] Dr. Josef Fraire MONO # 0.7 103/ul Normal 0.3-0.[address] [facility] Comment on above: Performed By: #### C BC #### [facility] [address] [place] [address] Dr. Josef Fraire Monocytes/100 WBC (Bld) 6.8 % Normal 1.7-12.[address] [facility] Comment on above: Performed By: #### C BC #### [facility] [address] [place] [address] Dr. Josef Fraire NEUT # 6.5 103/ul Normal 1.4-6.5 [facility] Comment on above: Performed By: #### C BC #### [facility] [address] [place] [address] Dr. Josef Fraire Neutrophils/100 WBC (Bld) 61.1 % Normal 43.0-75.[address] [facility] Comment on above: Performed By: #### C BC #### [facility] [address] [place] [address] Dr. Josef Fraire Platelet mean volume (Bld) [Entitic vol] 10.7 fL Normal 9.5-13.[address] [facility] Comment on above: Performed By: #### C BC #### [facility] [address] [place] [address] Dr. Josef Fraire PLT 313 103/ul Normal 150-450 [facility] Comment on above: Performed By: #### C BC #### [facility] [address] [place] [address] Dr. Josef Fraire RBC 4.87 106/ul Normal 4.20-5.[address] [facility] Comment on above: Performed By: #### C BC #### [facility] [address] [place] [address] Dr. Josef Fraire WBC 10.7 103/ul Normal 4.0-11.[address] [facility] Comment on above: Performed By: #### C BC #### [facility] [address] [place] [address] Dr. Josef Fraire ER URINE PROFILEon 2 Bilirubin Ql (U) Negative Normal NEGATIVE [facility] Comment on above: Performed By: #### E RUR #### [facility] [address] [place] [address] Dr. Josef Fraire Clarity (U) CLEAR Normal CLEAR [facility] Comment on above: Performed By: #### E RUR #### [facility] [address] [place] [address] Dr. Josef Fraire Color (U) LT. YELLOW Normal YELLOW [facility] Comment on above: Performed By: #### E RUR #### [facility] [address] [place] [address] Dr. Josef FISHER A micrscopic examination will be performed if indicated. Normal [facility] Comment on above: Performed By: #### E RUR #### [facility] [address] [place] [address] Dr. Josef Fraire Glucose Ql (U) Negative Normal NEGATIVE [facility] Comment on above: Performed By: #### E RUR #### [facility] [address] [place] [address] Dr. Josef Fraire Hemoglobin Ql (U) Negative Normal NEGATIVE [facility] Comment on above: Performed By: #### E RUR #### [facility] [address] [place] [address] Dr. Josef Fraire Ketones Ql (U) Negative Normal NEGATIVE [facility] Comment on above: Performed By: #### E RUR #### [facility] [address] [place] [address] Dr. Josef Fraire LEUKOCYTES Negative Normal NEGATIVE [facility] Comment on above: Performed By: #### E RUR #### [facility] [address] [place] [address] Dr. Josef Fraire Nitrite Ql (U) Negative Normal NEGATIVE [facility] Comment on above: Performed By: #### E RUR #### [facility] [address] [place] [address] Dr. Josef Fraire pH (U) 6.0 [pH] Normal 5-[address] [facility] Comment on above: Performed By: #### E RUR #### [facility] [address] [place] [address] Dr. Josef Fraire SPEC GRAVITY <=1.005 Abnormal 1.005-<=1.025 [facility] Comment on above: Performed By: #### E RUR #### [facility] [address] [place] [address] Dr. Josef Fraire UA PROTEIN Negative Normal NEGATIVE/ TRACE [facility] Comment on above: Performed By: #### E RUR #### [facility] [address] [place] [address] Dr. Josef Fraire UR MICRO IND NOT INDICATED Normal [facility] Comment on above: Performed By: #### E RUR #### [facility] [address] [place] [address] Dr. Josef Fraire Urobilinogen Qn (U) 0.2 {Vero'U}/dL Normal 0.2 - 1. 0 [facility] Comment on above: Performed By: #### E RUR #### [facility] [address] [address] [address] Josef Fraire PROF CHEM 8 (BAS METB)on Anion gap [Moles/Vol] 14.6 mmol/L Normal Th [facility] Comment on above: Performed By: #### L IPID, CMP #### [facility] [address] [place] [address] Dr. Josef Fraire Calcium [Mass/Vol] 9.7 mg/dL Normal 8.5-10.1 [facility] Comment on above: Performed By: #### L IPID, CMP #### [facility] [address] [place] [address] Dr. Josef Fraire Chloride [Moles/Vol] 96 mmol/L Critically low 98-[address] [facility] Comment on above: Performed By: #### L IPID, CMP #### [facility] [address] [place] [address] Dr. Josef Fraire CO2 [Moles/Vol] 25.8 mmol/L Normal 21.0-32.0 [facility] Comment on above: Performed By: #### L IPID, CMP #### [facility] [address] [place] [address] Dr. Josef Fraire Creatinine [Mass/Vol] 1.61 mg/dL Critically high 0.55-1.[address] [facility] Comment on above: Performed By: #### L IPID, CMP #### [facility] [address] [place] [address] Dr. Josef Fraire EGFR-AF BAR[place] 38 mL/min/1.73m2 Critically low >=60 [facility] Comment on above: Performed By: #### L IPID, CMP #### [facility] [address] [place] [address] Dr. Josef Fraire EGFR-NON AF [place] 32 mL/min/1.73m2 Critically low >=[address] [facility] Comment on above: Performed By: #### L IPID, CMP #### [facility] [address] [address] [address] Josef Fraire Glucose [Mass/Vol] 119 mg/dL Critically high 74-106 T [facility] Comment on above: Performed By: #### L IPID, CMP #### [facility] [address] [place] [address] Dr. Josef Fraire Potassium [Moles/Vol] 3.4 mmol/L Critically low 3.5-5.[address] [facility] Comment on above: Result Comment: SPEC IMEN IS JUST SLIGHTLY HEMOLYZED AND SLIGHTLY LIPEMIC Performed By: #### L IPID, CMP #### [facility] [address] [place] [address] Dr. Josef Fraire Sodium [Moles/Vol] 133 mmol/L Critically low 136-145 Th [facility] Comment on above: Performed By: #### L IPID, CMP #### [facility] [address] [place] [address] Dr. Josef Fraire Urea nitrogen [Mass/Vol] 22.0 mg/dL Critically high 7.0-18.[address] [facility] Comment on above: Performed By: #### L IPID, CMP #### [facility] [address] [place] [address] Dr. Josef Fraire Urea nitrogen/Creatinine [Mass ratio] 13.7 mg/mg Normal [facility] Comment on above: Performed By: #### L IPID, CMP #### [facility] [address] [place] [address] Dr. Josef Fraire TROPONIN, HIGH SENSITIVITYon 01-28-2022 HSTROP 8.3 pg/mL Normal 4.0-51.[address] [facility] Comment on above: Result Comment: CUT- OFF POINTS HAVE BEEN ESTABLISHED BASED ON THE FOURTH UNIVERSAL DEFINITIONS OF MYOCARDIAL INFARCTION. THE UPPER REFERENCE LIMIT (URL) OF TROPONIN, DEFINED THE 99TH PERCENTILE OF cTnI DISTRIBUTION IN A REFERENCE POPULATION, HAS BEEN CONFIRMED THE DECISION THRESHOLD FOR AR DIAGNOSIS. Performed By: #### L IPID, CMP #### [facility] [address] [place] [address] Dr. Josef Fraire PROF CHEM 8 (BAS METB)on Anion gap [Moles/Vol] 14.6 mmol/L Normal Th [facility] Comment on above: Performed By: #### B MP #### [facility] [address] [place] [address] Dr. Josef Fraire Calcium [Mass/Vol] 10.6 mg/dL Critically high 8.5-10.1 [facility] Comment on above: Performed By: #### B MP #### [facility] [address] [address] [address] Josef Fraire Chloride [Moles/Vol] 97 mmol/L Critically low 98-[address] [facility] Comment on above: Performed By: #### B MP #### [facility] [address] [place] [address] Dr. Josef Fraire CO2 [Moles/Vol] 29.5 mmol/L Normal 21.0-32.0 [facility] Comment on above: Performed By: #### B MP #### [facility] [address] [place] [address] Dr. Josef Fraire Creatinine [Mass/Vol] 1.34 mg/dL Critically high 0.55-1.[address] [facility] Comment on above: Performed By: #### B MP #### [facility] [address] [place] [address] Dr. Josef Fraire EGFR-AF [place] 47 mL/min/1.73m2 Critically low >=[address] [facility] Comment on above: Performed By: #### B MP #### [facility] [address] [place] [address] Dr. Josef Fraire EGFR-NON AF [place] 39 mL/min/1.73m2 Critically low >=[address] [facility] Comment on above: Performed By: #### B MP #### [facility] [address] [place] [address] Dr. Josef Fraire Glucose [Mass/Vol] 88 mg/dL Normal 74-106 [facility] Comment on above: Performed By: #### B MP #### [facility] [address] [address] [address] Josef Fraire Potassium [Moles/Vol] 4.1 mmol/L Normal 3.5-5.[address] [facility] Comment on above: Performed By: #### B MP #### [facility] [address] [place] [address] Dr. Josef Fraire Sodium [Moles/Vol] 137 mmol/L Normal 136-145 [facility] Comment on above: Performed By: #### B MP #### [facility] [address] [address] [address] Josef Fraire Urea nitrogen [Mass/Vol] 22.0 mg/dL Critically high 7.0-18.[address] [facility] Comment on above: Performed By: #### B MP #### [facility] [address] [place] [address] Dr. Josef Fraire Urea nitrogen/Creatinine [Mass ratio] 16.4 mg/mg Normal [facility] Comment on above: Performed By: #### B MP #### [facility] [address] [place] [address] Dr. Josef Fraire PROF CHEM 8 (BAS METB)on Anion gap [Moles/Vol] 9.5 mmol/L Normal [facility] Comment on above: Performed By: #### B MP #### [facility] [address] [place] [address] Dr. Josef Fraire Calcium [Mass/Vol] 9.1 mg/dL Normal 8.5-10.1 [facility] Comment on above: Performed By: #### B MP #### [facility] [address] [place] [address] Dr. Josef Fraire Chloride [Moles/Vol] 96 mmol/L Critically low 98-107 [facility] Comment on above: Performed By: #### B MP #### [facility] [address] [place] [address] Dr. Josef Fraire CO2 [Moles/Vol] 32.5 mmol/L Critically high 21.0-32.[address] [facility] Comment on above: Performed By: #### B MP #### [facility] [address] [place] [address] Dr. Josef Fraire Creatinine [Mass/Vol] 0.76 mg/dL Normal 0.55-1.[address] [facility] Comment on above: Performed By: #### B MP #### [facility] [address] [address] [address] Josef Fraire EGFR-AF BAR[place] >60 Normal >=60 [facility] Comment on above: Performed By: #### B MP #### [facility] [address] [address] [address] Josef Fraire EGFR-NON AF [place] >60 Normal >=[address] [facility] Comment on above: Performed By: #### B MP #### [facility] [address] [address] [address] Josef Fraire Glucose [Mass/Vol] 95 mg/dL Normal 74-106 [facility] Comment on above: Performed By: #### B MP #### [facility] [address] [place] [address] Dr. Josef Fraire Potassium [Moles/Vol] 3.0 mmol/L Critically low 3.5-5.[address] [facility] Comment on above: Performed By: #### B MP #### [facility] [address] [address] [address] Josef Fraire Sodium [Moles/Vol] 135 mmol/L Critically low 136-145 Th [facility] Comment on above: Performed By: #### B MP #### [facility] [address] [address] [address] Josef Fraire Urea nitrogen [Mass/Vol] 9.0 mg/dL Normal 7.0-18.[address] [facility] Comment on above: Performed By: #### B MP #### [facility] [address] [address] [address] Josef Fraire Urea nitrogen/Creatinine [Mass ratio] 11.8 mg/mg Normal [facility] Comment on above: Performed By: #### B MP #### [facility] [address] [place] [address] Dr. 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 This test has not been FDA [...] is terminated or revoked sooner. PERFORMED BY: [place] [address] PATHOLOGIST SOFTWARE CONSULTANT JOSUÉ LEE M.D. Performed By: #### C OVID [address] [facility] #### [address] COVID-19 Positive/NegativeOr dered By: Gabriel Qiu on 12-21-2021 SARS-CoV-2 (COVID-19) N gene CHRIS+probe Ql (Resp) Negative Negative [facility] Comment on above: Testing for SARS-CoV -2 by RT-PCR This test was developed and its performance characteristics determined by [employer] ([place]) and validated at the [facility]. This test has not been FDA [...] 11-27 Calcium [Mass/Vol] 9.7 mg/dL Normal 8.2-10.2 [facility] Comment on above: Result Comment: PERF ORMED BY: [place] [address] PATHOLOGIST SOFTWARE CONSULTANT JOSUÉ LEE M.D. Performed By: #### C BC, BMP #### [address] Chloride [Moles/Vol] 104 mmol/L Normal 95-114 [facility] Comment on above: Performed By: #### C BC, BMP #### [address] CO2 [Moles/Vol] 26.9 mmol/L Normal 22.0-30.0 [facility] Comment on above: Performed By: #### C BC, BMP #### [address] Creatinine [Mass/Vol] 0.71 mg/dL Normal 0.44-1.03 [facility] Comment on above: Performed By: #### C BC, BMP #### [place] [address] [place] Estimated GFR ( Juliette > 60 [facility] Comment on above: Result Comment: GFR estimated reference range: According to KDOQI guidelines, <60 ml/min/1.73m2 is sufficient to diagnose a patient with chronic kidney disease. Performed By: #### C BC, BMP #### [place] [address] [place] Estimated GFR (Non- Am > 60 [facility] Comment on above: Performed By: #### C BC, BMP #### [facility] [address] Glucose [Mass/Vol] 81 mg/dL Normal 70-100 [facility] Comment on above: Result Comment: [facility] Glucose Reference Range is dependent on time and content of last meal. Glucose of more than 200 mg/dL in a nonstressed, ambulatory subject supports the diagnosis of Diabetes Mellitus. ADA recommended reference range Performed By: #### C BC, BMP #### [facility] [address] Potassium [Moles/Vol] 4.1 mmol/L Normal 3.5-5.1 [facility] Comment on above: Performed By: #### C AIDA, BMP #### [facility] [address] Sodium [Moles/Vol] 138 mmol/L Normal 136-146 [facility] Comment on above: Performed By: #### C AIDA, BMP #### [facility] [address] Urea nitrogen [Mass/Vol] 7 mg/dL Low 9-23 [facility] Comment on above: Performed By: #### C AIDA, BMP #### [facility] [address] Basophils Auto (Bld) [#/Vol] Ordered By: Gabriel Qiu on 12-11-2021 Basophils (Bld) [#/Vol] 0.1 10*3/uL 0.0-0.2 [facility] Basophils/100 WBC Auto (Bld) Ordered By: Gabriel Qiu on 12-11-2021 Basophils/100 WBC (Bld) 0.9 % . [facility] Blood hemoglobin measurement (mass/volume)Ordered By: Gabriel Qiu on 12-11-2021 Hemoglobin (Bld) [Mass/Vol] 15.1 g/dL 11.8-15.4 [facility] Blood leukocytes automated c ount (number/volume)Ordered By: Gabriel Qiu on 12-11-2021 WBC (Bld) [#/Vol] 9.0 10*3/uL 4.5-11.0 [facility] Complete Blood Count Auto Di ffon 12-11-2021 Basophils (Bld) [#/Vol] 0.1 10*3/uL Normal 0.0-0.2 [facility] Comment on above: Result Comment: PERF ORMED BY: [place] [address] PATHOLOGIST SOFTWARE CONSULTANT JOSUÉ LEE M.D. Performed By: #### C BC, BMP #### [address] Basophils/100 WBC (Bld) 0.9 % Normal . [facility] Comment on above: Performed By: #### C BC, BMP #### [address] Eosinophils (Bld) [#/Vol] 0.1 10*3/uL Normal 0.0-0.45 [facility] Comment on above: Performed By: #### C BC, BMP #### [address] Eosinophils/100 WBC (Bld) 1.3 % Normal . [facility] Comment on above: Performed By: #### C BC, BMP #### [address] Erythrocyte distribution width (RBC) [Ratio] 14.4 % Normal 11.9-15.3 [facility] Comment on above: Performed By: #### C BC, BMP #### [address] Hematocrit (Bld) [Volume fraction] 45.2 % Normal 34.0-46.4 [facility] Comment on above: Performed By: #### C BC, BMP #### [place] [address] [place] Hemoglobin (Bld) [Mass/Vol] 15.1 g/dL Normal 11.8-15.4 [facility] Comment on above: Performed By: #### C BC, BMP #### [place] [address] [place] Lymphocytes (Bld) [#/Vol] 1.8 10*3/uL Normal 1.00-4.8 [facility] Comment on above: Performed By: #### C BC, BMP #### [facility] [address] Lymphocytes/100 WBC (Bld) 19.7 % Normal . [facility] Comment on above: Performed By: #### C BC, BMP #### [facility] [address] MCH (RBC) [Entitic mass] 30.0 pg Normal 24.7-34.3 [facility] Comment on above: Performed By: #### C BC, BMP #### [facility] [address] MCV (RBC) [Entitic vol] 89.4 fL Normal 80-100 [facility] Comment on above: Performed By: #### C BC, BMP #### [facility] [address] Mean Corpuscular HGB Conc 33.5 g/dL Normal 32.0-35.0 [facility] Comment on above: Performed By: #### C BC, BMP #### [address] Monocytes (Bld) [#/Vol] 0.6 10*3/uL Normal 0.0-0.8 [facility] Comment on above: Performed By: #### C BC, BMP #### [facility] [address] [place] [address] [place] Monocytes/100 WBC (Bld) 6.8 % Normal . [facility] Comment on above: Performed By: #### C BC, BMP #### [facility] [address] [place] [address] [place] Neutrophils (Bld) [#/Vol] 6.4 10*3/uL Normal 1.8-7.7 [facility] Comment on above: Performed By: #### C BC, BMP #### [place] [address] [place] Neutrophils/100 WBC (Bld) 71.3 % Normal . [facility] Comment on above: Performed By: #### C BC, BMP #### [facility] [address] Nucleated RBC/100 WBC (Bld) [Ratio] 0.0 % Normal 0-0.5 [facility] Comment on above: Performed By: #### C BC, BMP #### [facility] [address] Platelet mean volume (Bld) [Entitic vol] 9.5 fL Normal 6.3-10.7 [facility] Comment on above: Performed By: #### C BC, BMP #### [facility] [address] Platelets (Bld) [#/Vol] 245 10*3/uL Normal 150-450 [facility] Comment on above: Performed By: #### C BC, BMP #### [facility] [address] RBC (Bld) [#/Vol] 5.05 10*6/uL High 3.60-5.00 [facility] Comment on above: Performed By: #### C BC, BMP #### [facility] [address] WBC (Bld) [#/Vol] 9.0 10*3/uL Normal 4.5-11.0 [facility] Comment on above: Performed By: #### C BC, BMP #### [address] Creatinine and Glomerular fi ltration rate.predicted panel (S/P/Bld)Ordered By: Gabriel Qiu on 12-11-2021 Creatinine [Mass/Vol] 0.71 mg/dL 0.44-1.03 [facility] ECG 12 lead ECGon 12-11-2021 ECG 12 lead ECG [facility] [address] [place] [address] [place] [address] Electrocardiograph Report Signed Patient: Sherri Villa MR#: [id number] : 1950 Acct:[id number] Age/Sex: 71 / F ADM Date: 12/11/21 Loc: PS [facility]: [facility] Att[facility]: Gabriel Qiu DO Ordering Provider: [...] By: MUS Signed By Alberto Gray MD 918 Normal [facility] Eosinophils Auto (Bld) [#/Vo l]Ordered By: Gabriel Qiu on 12-11-2021 Eosinophils (Bld) [#/Vol] 0.1 10*3/uL 0.0-0.45 [facility] Eosinophils/100 WBC Auto (Bl d)Ordered By: Gabriel Qiu on 12-11-2021 Eosinophils/100 WBC (Bld) 1.3 % . [facility] Erythrocyte distribution wid th Auto (RBC) [Ratio]Ordered By: Gabriel Qiu on 12-11-2021 Erythrocyte distribution width (RBC) [Ratio] 14.4 % 11.9-15.3 [facility] Estimated glomerular filtrat ion rate (GFR) non- AmericanOrdered By: Gabriel Qiu on 12-11-2021 GFR/1.73 sq M.predicted among non-blacks MDRD (S/P/Bld) [Vol rate/Area] > 60 mL/Min [facility] Hematocrit Auto (Bld) [Volum e fraction]Ordered By: Gabriel Qiu on 12-11-2021 Hematocrit (Bld) [Volume fraction] 45.2 % 34.0-46.4 [facility] Laboratory - Hematology and Cell countsOrdered By: Gabriel Qiu on 12-11-2021 Nucleated RBC/100 WBC (Bld) [Ratio] 0.0 % 0-0.5 [facility] Lymphocytes Auto (Bld) [#/Vo l]Ordered By: Gabriel Qiu on 12-11-2021 Lymphocytes (Bld) [#/Vol] 1.8 10*3/uL 1.00-4.8 [facility] Lymphocytes/100 WBC Auto (Bl d)Ordered By: Gabriel Qiu on 12-11-2021 Lymphocytes/100 WBC (Bld) 19.7 % . [facility] MCH Auto (RBC) [Entitic mass ]Ordered By: Gabriel Qiu on 12-11-2021 MCH (RBC) [Entitic mass] 30.0 pg 24.7-34.3 [facility] MCHC Auto (RBC) [Mass/Vol]Or dered By: Gabriel Qiu on 12-11-2021 MCHC (RBC) [Mass/Vol] 33.5 g/dL 32.0-35.0 [facility] MCV Auto (RBC) [Entitic vol] Ordered By: Gabriel Qiu on 12-11-2021 MCV (RBC) [Entitic vol] 89.4 fL 80-100 [facility] Monocytes Auto (Bld) [#/Vol] Ordered By: Gabriel Qiu on 12-11-2021 Monocytes (Bld) [#/Vol] 0.6 10*3/uL 0.0-0.8 [facility] Monocytes/100 WBC Auto (Bld) Ordered By: Gabriel Qiu on 12-11-2021 Monocytes/100 WBC (Bld) 6.8 % . [facility] Neutrophils Auto (Bld) [#/Vo l]Ordered By: Gabriel Qiu on 12-11-2021 Neutrophils (Bld) [#/Vol] 6.4 10*3/uL 1.8-7.7 [facility] Neutrophils/100 WBC Auto (Bl d)Ordered By: Gabriel Qiu on 12-11-2021 Neutrophils/100 WBC (Bld) 71.3 % . [facility] No Panel InformationOrdered By: Gabriel Qiu on 12-11-2021 Estimated GFR () > 60 mL/Min [facility] Comment on above: GFR estimated refere nce range: According to KDOQI guidelines, <60 ml/min/1.73m2 is sufficient to diagnose a patient with chronic kidney disease. Pharmacy Creatinine Clearance (Chem N/A [facility] Platelet mean volume Auto (B ld) [Entitic vol]Ordered By: Gabriel Qiu on 12-11-2021 Platelet mean volume (Bld) [Entitic vol] 9.5 fL 6.3-10.7 [facility] Platelets Auto (Bld) [#/Vol] Ordered By: Gabriel Qiu on 12-11-2021 Platelets (Bld) [#/Vol] 245 10*3/uL 150-450 [facility] RBC Auto (Bld) [#/Vol]Ordere d By: Gabriel Qiu on 12-11-2021 RBC (Bld) [#/Vol] 5.05 10*6/uL 3.60-5.00 [facility] Serum or plasma calcium malcom urement (mass/volume)Ordered By: Gabriel Qiu on 12-11-2021 Calcium [Mass/Vol] 9.7 mg/dL 8.2-10.2 [facility] Serum or plasma chloride andreea surement (moles/volume)Ordered By: Gabriel Qiu on 12-11-2021 Chloride [Moles/Vol] 104 mmol/L 95-114 [facility] Serum or plasma glucose malcom urement (mass/volume)Ordered By: Gabriel Qiu on 12-11-2021 Glucose [Mass/Vol] 81 mg/dL 70-100 [facility] Comment on above: ADA recommended refe rence range Random Glucose Reference Range is dependent on time and content of last meal. Glucose of more than 200 mg/dL in a nonstressed, ambulatory subject supports the diagnosis of Diabetes Mellitus. Serum or plasma potassium me asurement (moles/volume)Ordered By: Gabriel Qiu on 12-11-2021 Potassium [Moles/Vol] 4.1 mmol/L 3.5-5.1 [facility] Serum or plasma sodium measu rement (moles/volume)Ordered By: Gabriel Qiu on 12-11-2021 Sodium [Moles/Vol] 138 mmol/L 136-146 [facility] Serum or plasma total carbon dioxide measurement (moles/volume)Ordered By: Gabriel Mariscaltatyana on 12-11-2021 CO2 [Moles/Vol] 26.9 mmol/L 22.0-30.0 [facility] Serum or plasma urea nitroge n measurement (mass/volume)Ordered By: Gabriel Qiu on 12-11-2021 Urea nitrogen [Mass/Vol] 7 mg/dL 9-23 [facility] COVID-19 Antigenon 2 COVID-19 Antigen Healthcare [...] developed and its performance characteristic determined by [employer] and validated at [facility]. This test has not been FDA [...] for SARS Antigen by MARITZA PERFORMED BY: [facility] JUSTIN SHER [id number] PATHOLOGIST SOFTWARE CONSULTANT JOSUÉ LEE M.D. Normal [facility] Comment on above: Performed By: #### C OVID-19 LE SOFIANEG #### [address] COVID-19 SOFIAOrdered By: Ruben Ziegler on 11-03-2021 SARS-CoV+SARS-CoV-2 (COVID-19) Ag IA.rapid Ql (Resp) Negative Negative [facility] Comment on above: This is a duplicate Le SARS Antigen (MARITZA) result to be used for statistical tracking purpose only. No Panel InformationOrdered By: Gume Ziegler on 11-03-2021 SARS Antigen (LFIA) [facility] Le Ag Negativeon 11-04-19 22 Le Ag Negative Negative Normal Negative [facility] Comment on above: Result Comment: This is a duplicate Le SARS Antigen (MARITZA) result to be used for statistical tracking purpose only. PERFORMED BY: [place] [address] PATHOLOGIST SOFTWARE CONSULTANT JOSUÉ LEE M.D. Performed By: #### C OVID-19 LE SOFIANEG #### [address] MG MAMM SCREEN 3D TERESA CADon 10-27-2021 MG MAMM SCREEN 3D TERESA CAD Patient: SHERRI VILLA Exam Date: 10/27/2021 : 1950 Gender:F Ordering : SHAIKH Denise RAMIREZ . Admission #: [id number] Family : Order #: [id number] CLICK HERE TO VIEW EXAM RADIOLOGY REPORT [...] Treatments None Family Cancers None LOCATION: [facility] BREAST COMPOSITION: Scattered areas fibroglandular density. FINDINGS: [...] MD on 10/27/2021 at 14:15 Normal [facility] CBC AUTO DIFFon 10-13-2021 BASO # 0.0 103/ul Normal 0.0-0.[address] [facility] Comment on above: Performed By: #### C BC #### [facility] [address] [place] [address] Dr. Josef Fraire Basophils/100 WBC (Bld) 0.5 % Normal 0.2-2.[address] [facility] Comment on above: Performed By: #### C BC #### [facility] [address] [place] [address] Dr. Josef Fraire EO # 0.2 103/ul Normal 0.0-0.7 [facility] Comment on above: Performed By: #### C BC #### [facility] [address] [place] [address] Dr. Josef Fraire Eosinophils/100 WBC (Bld) 2.4 % Normal 0.9-7.[address] [facility] Comment on above: Performed By: #### C BC #### [facility] [address] [place] [address] Dr. Josef Fraire Erythrocyte distribution width (RBC) [Ratio] 13.9 % Normal 11.0-15.0 [facility] Comment on above: Performed By: #### C BC #### [facility] [address] [place] [address] Dr. Josef Fraire Hematocrit (Bld) [Volume fraction] 44.7 % Normal 36.0-48.[address] [facility] Comment on above: Performed By: #### C BC #### [facility] [address] [place] [address] Dr. Josef Fraire Hemoglobin (Bld) [Mass/Vol] 14.4 g/dL Normal 12.0-16.0 [facility] Comment on above: Performed By: #### C BC #### [facility] [address] [place] [address] Dr. Josef Fraire IG # 0.03 10e3/ul Normal 0.00-0.[address] [facility] Comment on above: Performed By: #### C BC #### [facility] [address] [place] [address] Dr. Josef Fraire IG % 0.4 % Normal 0.0-0.5 [facility] Comment on above: Performed By: #### C BC #### [facility] [address] [place] [address] Dr. Josef Fraire LYMPH # 2.0 103/ul Normal 1.2-3.8 [facility] Comment on above: Performed By: #### C BC #### [facility] [address] [place] [address] Dr. Josef Fraire Lymphocytes/100 WBC (Bld) 25.1 % Normal 20.5-60.[address] [facility] Comment on above: Performed By: #### C BC #### [facility] [address] [place] [address] Dr. Josef Fraire MANUAL DIFF REQ NO Normal [facility] Comment on above: Performed By: #### C BC #### [facility] [address] [place] [address] Dr. Josef Fraire MCH (RBC) [Entitic mass] 29.9 pg Normal 26.7-34.0 [facility] Comment on above: Performed By: #### C BC #### [facility] [address] [place] [address] Dr. Josef Fraire MCHC (RBC) [Mass/Vol] 32.2 g/dL Normal 29.9-35.2 [facility] Comment on above: Performed By: #### C BC #### [facility] [address] [place] [address] Dr. Josef Fraire MCV (RBC) [Entitic vol] 92.7 fL Normal 81.0-99.[address] [facility] Comment on above: Performed By: #### C BC #### [facility] [address] [place] [address] Dr. Josef Fraire MONO # 0.5 103/ul Normal 0.3-0.[address] [facility] Comment on above: Performed By: #### C BC #### [facility] [address] [place] [address] Dr. Josef Fraire Monocytes/100 WBC (Bld) 6.6 % Normal 1.7-12.[address] [facility] Comment on above: Performed By: #### C BC #### [facility] [address] [place] [address] Dr. Josef Fraire NEUT # 5.1 103/ul Normal 1.4-6.[address] [facility] Comment on above: Performed By: #### C BC #### [facility] [address] [place] [address] Dr. Josef Fraire Neutrophils/100 WBC (Bld) 65.0 % Normal 43.0-75.[address] [facility] Comment on above: Performed By: #### C BC #### [facility] [address] [place] [address] Dr. Josef Fraire Platelet mean volume (Bld) [Entitic vol] 11.9 fL Normal 9.5-13.5 [facility] Comment on above: Performed By: #### C BC #### [facility] [address] [place] [address] Dr. Josef Fraire PLT 217 103/ul Normal 150-450 [facility] Comment on above: Performed By: #### C BC #### [facility] [address] [place] [address] Dr. Josef Fraire RBC 4.82 106/ul Normal 4.20-5.40 [facility] Comment on above: Performed By: #### C BC #### [facility] [address] [place] [address] Dr. Josef Fraire WBC 7.9 103/ul Normal 4.0-11.[address] [facility] Comment on above: Performed By: #### C BC #### [facility] [address] [address] [address] Josef Fraire FERRITINon 10-13-2021 Ferritin [Mass/Vol] 56.0 ng/mL Normal 8.0-252.0 [facility] Comment on above: Performed By: #### F ERR #### [facility] [address] [address] [address] Josef Fraire LIPID PROFILEon 10-13-2021 CHOL-HDL RATIO NORM SEE BELOW Normal [facility] Comment on above: Result Comment: 3.3 - 4.4 LOW RISK 4.4 - 7.1 AVERAGE RISK 7.1 - 11.0 MODERATE RISK >11.0 HIGH RISK Performed By: #### L IPID, CMP #### [facility] [address] [address] [address] Josef Fraire Cholesterol [Mass/Vol] 156 mg/dL Normal <=200 [facility] Comment on above: Performed By: #### L IPID, CMP #### [facility] [address] [address] [address] Josef Fraire Cholesterol in HDL [Mass/Vol] 53 mg/dL Normal 40-[address] [facility] Comment on above: Performed By: #### L IPID, CMP #### [facility] [address] [address] [address] Josef Fraire Cholesterol in LDL [Mass/Vol] 85.0 mg/dL Normal [facility] Comment on above: Performed By: #### L IPID, CMP #### [facility] [address] [address] [address] Josef Fraire Cholesterol.total/Chol esterol in HDL [Mass ratio] 2.9 {ratio} Normal [facility] Comment on above: Performed By: #### L IPID, CMP #### [facility] [address] [address] [address] Josef Fraire HDL NORMAL > or = 60 mg/dl - LO W CARDIOVASCULAR RISK <40 mg/dl - HIGH CARDIOVASCULAR RISK Normal [facility] Comment on above: Performed By: #### L IPID, CMP #### [facility] [address] [address] [address] Josef Fraire LDL CALC NORMAL SEE BELOW Normal [facility] Comment on above: Result Comment: <100 mg/dl OPTIMAL 100 - 129 mg/dl NEAR OR ABOVE OPTIMAL 130 - 159 mg/dl BORDERLINE HIGH 160 - 189 mg/dl HIGH >190 mg/dl VERY HIGH Performed By: #### L IPID, CMP #### [facility] [address] [address] [address] Josef Fraire Triglyceride [Mass/Vol] 90 mg/dL Normal <=150 [facility] Comment on above: Performed By: #### L IPID, CMP #### [facility] [address] [address] [address] Josef Fraire VLDL CALC 18.0 mg/dL Normal [facility] Comment on above: Performed By: #### L IPID, CMP #### [facility] [address] [address] [address] Josef Fraire PROF 14(COMP METB)on 022 Albumin [Mass/Vol] 3.5 g/dL Normal 3.4-5.0 [facility] Comment on above: Performed By: #### L IPID, CMP #### [facility] [address] [place] [address] Dr. Josef Fraire Albumin/Globulin [Mass ratio] 1.0 {ratio} Normal [facility] Comment on above: Performed By: #### L IPID, CMP #### [facility] [address] [place] [address] Dr. Josef Fraire ALP [Catalytic activity/Vol] 90 U/L Normal 46-116 [facility] Comment on above: Performed By: #### L IPID, CMP #### [facility] [address] [place] [address] Dr. Josef Fraire ALT [Catalytic activity/Vol] 25 U/L Normal 14-[address] [facility] Comment on above: Performed By: #### L IPID, CMP #### [facility] [address] [address] [address] Josef Fraire Anion gap [Moles/Vol] 9.0 mmol/L Normal [facility] Comment on above: Performed By: #### L IPID, CMP #### [facility] [address] [address] [address] Josef Fraire AST [Catalytic activity/Vol] 17 U/L Normal 15-37 [facility] Comment on above: Performed By: #### L IPID, CMP #### [facility] [address] [address] [address] Josef Fraire Bilirubin [Mass/Vol] 0.4 mg/dL Normal 0.2-1.[address] [facility] Comment on above: Performed By: #### L IPID, CMP #### [facility] [address] [place] [address] Dr. Josef Fraire Calcium [Mass/Vol] 9.1 mg/dL Normal 8.5-10.1 [facility] Comment on above: Performed By: #### L IPID, CMP #### [facility] [address] [place] [address] Dr. Josef Fraire Chloride [Moles/Vol] 105 mmol/L Normal 98-107 [facility] Comment on above: Performed By: #### L IPID, CMP #### [facility] [address] [place] [address] Dr. Josef Fraire CO2 [Moles/Vol] 27.9 mmol/L Normal 21.0-32.0 [facility] Comment on above: Performed By: #### L IPID, CMP #### [facility] [address] [place] [address] Dr. Josef Fraire Creatinine [Mass/Vol] 0.78 mg/dL Normal 0.55-1.02 [facility] Comment on above: Performed By: #### L IPID, CMP #### [facility] [address] [place] [address] Dr. Josef Fraire EGFR-AF BARBADIAN >60 Normal >=60 [facility] Comment on above: Performed By: #### L IPID, CMP #### [facility] [address] [address] [address] Josef Fraire EGFR-NON AF BARBADIAN >60 Normal >=[address] [facility] Comment on above: Performed By: #### L IPID, CMP #### [facility] [address] [address] [address] Josef Fraire Globulin (S) [Mass/Vol] 3.5 g/dL Normal [facility] Comment on above: Performed By: #### L IPID, CMP #### [facility] [address] [address] [address] Josef Fraire Glucose [Mass/Vol] 89 mg/dL Normal 74-106 [facility] Comment on above: Performed By: #### L IPID, CMP #### [facility] [address] [place] [address] Dr. Josef Fraire Potassium [Moles/Vol] 4.3 mmol/L Normal 3.5-5.1 [facility] Comment on above: Performed By: #### L IPID, CMP #### [facility] [address] [place] [address] Dr. Josef Fraire Protein [Mass/Vol] 7.0 g/dL Normal 6.4-8.2 [facility] Comment on above: Performed By: #### L IPID, CMP #### [facility] [address] [place] [address] Dr. Josef Fraire Sodium [Moles/Vol] 140 mmol/L Normal 136-145 [facility] Comment on above: Performed By: #### L IPID, CMP #### [facility] [address] [place] [address] Dr. Josef Fraire Urea nitrogen [Mass/Vol] 8.0 mg/dL Normal 7.0-18.0 [facility] Comment on above: Performed By: #### L IPID, CMP #### [facility] [address] [place] [address] Dr. Josef Fraire Urea nitrogen/Creatinine [Mass ratio] 10.2 mg/mg Normal [facility] Comment on above: Performed By: #### L IPID, CMP #### [facility] [address] [place] [address] Dr. Josef Fraire Vital Signs Date Time Vital Sign Value Performing Clinician Facility 07-11-2023 12:38-0500 Body height 157.5 cm Nazario Smith MD Work Phone: [facility] 07-11-2023 12:38-0500 Body mass index (BMI) [Ratio] 25.97 kg/m2 Nazario Smith MD Work Phone: [facility] 07-11-2023 12:38-0500 Body weight 64.41 kg Nazario Smith MD Work Phone: [phone] [place] [address] 07-11-2023 12:38-0500 Diastolic blood pressure 76 mm[Hg] Nazario Smith MD Work Phone: [phone] [place] [address] 07-11-2023 12:38-0500 Heart rate 60 /min Nazario Smith MD Work Phone: [facility] 07-11-2023 12:38-0500 Systolic blood pressure 124 mm[Hg] Nazario Smith MD Work Phone: [facility] 06-23-2023 11:39-0500 Diastolic blood pressure 72 mm[Hg] Nazario Smith MD Work Phone: [facility] 06-23-2023 11:39-0500 Systolic blood pressure 110 mm[Hg] Nazario Smith MD Work Phone: [facility] 06-23-2023 10:49-0500 Heart rate 64 /min Nazario Smith MD Work Phone: [facility] 06-23-2023 10:48-0500 Body height 157.5 cm Nazario Smith MD Work Phone: [facility] 06-23-2023 10:48-0500 Body mass index (BMI) [Ratio] 26.34 kg/m2 Nazario Smith MD Work Phone: [phone] [place] [address] 06-23-2023 10:48-0500 Body weight 65.32 kg Nazario Smith MD Work Phone: [facility] 11-22-2022 09:10-0400 Body height 160.02 cm Gracia Woodruff Other [facility] Other 11-22-2022 09:10-0400 Body mass index (BMI) [Ratio] 25.98 kg/m2 Gracia Woodruff Other [facility] Other 11-22-2022 09:10-0400 Body temperature 97.8 [degF] Gracia Woodruff Other [facility] Other 11-22-2022 09:10-0400 Body weight 66.54 kg Gracia Woodruff Other [facility] Other 11-22-2022 09:10-0400 Diastolic blood pressure 56 mm[Hg] Gracia Woodruff Other [facility] Other 11-22-2022 09:10-0400 Respiratory rate 18 /min Gracia Woodruff Other [facility] Other 11-22-2022 09:10-0400 SaO2% (BldA) [Mass fraction] 95 % Gracia Woodruff Other [facility] Other 11-22-2022 09:10-0400 Systolic blood pressure 148 mm[Hg] Gracia Woodruff Other [facility] Other 12-23-2021 14:20-0400 Diastolic blood pressure 64 mm[Hg] DO Gume Biztag Work Phone: [facility] 12-23-2021 14:20-0400 Heart rate 71 /min DO Gume Hykes Work Phone: [facility] 12-23-2021 14:20-0400 Respiratory rate 16 /min DO Gume Hykes Work Phone: [facility] 12-23-2021 14:20-0400 SaO2% (BldA) [Mass fraction] 96 % DO Gume Hykes Work Phone: [facility] 12-23-2021 14:20-0400 Systolic blood pressure 122 mm[Hg] DO Gume Hykes Work Phone: [facility] 12-23-2021 12:12-0400 Body height 157.48 cm DO Gume Hykes Work Phone: [facility] 12-23-2021 12:12-0400 Body mass index (BMI) [Ratio] 27 kg/m2 DO Gume Hykes Work Phone: [facility] 12-23-2021 12:12-0400 Body weight 67 kg DO Gume Hykes Work Phone: [facility] 12-23-2021 11:11-0400 Body temperature 97.9 [degF] DO Gume Hykes Work Phone: [facility] 11-05-2021 13:50-0400 Diastolic blood pressure 64 mm[Hg] DO Gume Hykes Work Phone: [facility] 11-05-2021 13:50-0400 Heart rate 77 /min DO Gume Hykes Work Phone: [facility] 11-05-2021 13:50-0400 Respiratory rate 16 /min DO Gume Hykes Work Phone: [facility] 11-05-2021 13:50-0400 SaO2% (BldA) [Mass fraction] 97 % DO Gume Hykes Work Phone: [facility] 11-05-2021 13:50-0400 Systolic blood pressure 118 mm[Hg] DO Gume Hykes Work Phone: [facility] 11-05-2021 12:49-0400 Body height 160.02 cm DO Gume Ziegler Work Phone: [facility] 11-05-2021 12:49-0400 Body mass index (BMI) [Ratio] 25.3 kg/m2 DO Gume Ziegler Work Phone: [facility] 11-05-2021 12:49-0400 Body temperature 98.2 [degF] DO Gume Ziegler Work Phone: [facility] 11-05-2021 12:49-0400 Body weight 64.86 kg DO Gume Ziegler Work Phone: [facility] 05-06-2021 10:45-0500 Body height 160.02 cm Dede Calvrene Other [facility] Other 05-06-2021 10:45-0500 Body mass index (BMI) [Ratio] 25.74 kg/m2 Dede Calvey Other [facility] Other 05-06-2021 10:45-0500 Body weight 65.91 kg Dede Calvey Other [facility] Other 04-08-2021 15:15-0500 Body height 160.02 cm Dede Calvey Other [facility] Other 04-08-2021 15:15-0500 Body mass index (BMI) [Ratio] 25.33 kg/m2 Dede Calvey Other [facility] Other 04-08-2021 15:15-0500 Body weight 64.86 kg Dede Calvey Other [facility] Other Encounters Encounter Date Encounter Type Care Provider Facility Start: 07-11-2023 End: 07-11-2023 ambulatory [facility] Start: 07-11-2023 End: 07-11-2023 Office outpatient visit 25 minutes Nazario Smith MD Work Phone: [facility] Comment on above: snf current us e of anticoagulant therapy (Primary Dx); Atrial 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, unspecified type (CMS/HCC); Gastroesophageal reflux disease, unspecified whether esophagitis present; Paroxysmal atrial 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 (CMS/HCC); Primary hypertension; Mixed hyperlipidemia; Hypercoagulable state due to 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 (CMS/HCC); Current every day smoker; Encounter to discuss test results Start: 07-07-2023 End: 07-08-2023 ambulatory [facility] Start: 07-07-2023 End: 07-07-2023 Subsequent hospital visit by physician Florencia Cordero [facility] Start: 06-29-2023 End: 06-29-2023 ambulatory SHAIKH ASHLEY Not Available Start: 06-23-2023 End: 06-23-2023 ambulatory [facility] Start: 06-23-2023 End: 06-23-2023 Office outpatient new 45 minutes Nazario Smith MD Work Phone: [facility] Comment on above: Atrial 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, unspecified type (CMS/HCC); Current every day smoker; Gastroesophageal reflux disease, unspecified whether esophagitis present; Hypercoagulable state due to 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 (CMS/HCC); snf current use of anticoagulant therapy; Hyperlipidemia, unspecified hyperlipidemia type; Chest pain, unspecified type; Primary hypertension; Paroxysmal atrial 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 (CMS/HCC) Start: 06-01-2023 End: 06-01-2023 ambulatory SHAIKH ASHLEY Not Available Start: 05-17-2023 End: 05-17-2023 ambulatory SHAIKH ASHLEY Not Available Start: 11-22-2022 End: 11-22-2022 ambulatory Gracia Woodruff Other [facility] Other Start: 11-22-2022 Office outpatient vi sit 15 minutes Gracia Woodruff [facility] [place] Start: 09-13-2022 ambulatory Facility:Paulie Keen Start: 04-07-2022 End: 04-08-2022 ambulatory ROONEY H FAWWAD Facility:[facility]1 Start: 01-28-2022 End: 01-28-[address] YORDAN BAÑUELOS Facility:[facility] Start: 01-27-2022 End: 01-28-2022 ambulatory ROONEY H FAWWAD Facility:[facility] Start: 01-18-2022 End: 01-19-2022 ambulatory ROONEY H FAWWAD Facility:[facility] Start: 12-23-2021 End: 12-23-2021 ambulatory Rooney Fawwad Facility:[facility] Start: 12-23-2021 End: 12-23-2021 Admission to same day surgery center DO Gume Ziegler Work Phone: [facility] [place] Start: 12-21-2021 End: 12-21-2021 ambulatory Rooney Fawwad Facility:[facility] Start: 12-21-2021 End: 12-21-2021 Patient encounter procedure DO Gume Ziegler Work Phone: [facility] Start: 12-11-2021 End: 12-11-2021 ambulatory Shaikh Calwad Facility:[facility] Start: 12-11-2021 End: 12-11-2021 Patient encounter procedure DO Gume Ziegler Work Phone: [facility] Start: 12-09-2021 End: 12-09-2021 ambulatory Gume Ziegler Other [facility] Other Start: 12-09-2021 Telephone encounter Gume Ziegler [facility] Start: 11-27-2021 End: 11-27-2021 ambulatory Gume Ziegler Other Rem[facility] Other Start: 11-27-2021 Telephone encounter Gume Ziegler [facility] Start: 11-09-2021 End: 11-09-2021 ambulatory Gume Ziegler Other Rem[facility] Other Start: 11-09-2021 Telephone encounter Gume Ziegler [facility] Start: 11-05-2021 End: 11-05-2021 ambulatory Gume Ziegler Facility:[facility] Start: 11-05-2021 End: 11-05-2021 Admission to same day surgery center DO Gume Ziegler Work Phone: [facility] Start: 11-03-2021 End: 11-03-2021 ambulatory Gume Ziegler Facility:[facility] Start: 11-03-2021 End: 11-03-2021 Patient encounter procedure DO Gume Ziegler Work Phone: [facility] Start: 10-28-2021 End: 10-28-2021 ambulatory Gume Ziegler Other [facility] Other Start: 10-28-2021 Telephone encounter [facility] Start: 10-27-2021 End: 10-28-2021 ambulatory ROONEY H FAWWAD Facility:[facility] Start: 10-13-2021 End: 10-14-2021 ambulatory ROONEY H FAWWAD Facility:[facility] Start: 05-06-2021 End: 05-06-2021 ambulatory Dede Garcia Other Rem[facility] Other Start: 05-06-2021 Office outpatient vi sit 10 minutes Dede Calvey [facility] Start: 04-14-2021 End: 04-14-2021 ambulatory Jaime Paulino Other [facility] Other Start: 04-14-2021 Telephone encounter Jaime Paulino [facility] Start: 04-08-2021 End: 04-08-2021 ambulatory Dede Garcia Other [facility] Other Start: 04-08-2021 Office outpatient vi sit 15 minutes Dede Calvey [facility] Start: 03-11-2021 Office outpatient vi sit 15 minutes Dede Garcia [facility] Procedures Date Procedure Procedure Detail Performing Clinician Start: 07-11-2023 FOLLOW UP IN CARDIOLOGY NAZARIO SMITH Start: 07-07-2023 NUCLEAR STRESS TEST DOREEN SMITH Start: 07-07-2023 Cv strs tst xers&/or rx cont ecg trcg only Nazario Smith MD Work Phone: Start: 06-23-2023 CBC panel - Blood by Automated count NAZARIO SMITH Start: 06-23-2023 Comprehensive metabo lic 2000 panel - Serum or Plasma NAZARIO SMITH Start: 06-23-2023 Lipid panel NAZARIO MARIE Start: 06-23-2023 Thyrotropin [Units/v olume] in Serum or Plasma NAZARIOTULIO RENNERAN Start: 06-23-2023 THYROXINE, FREE NAZARIO RENNERAN Start: 06-23-2023 TRIIODOTHYRONINE, TOTAL NAZARIO SMITH Start: 06-23-2023 ECG 12-LEAD NAZARIO MARIE Start: 06-23-2023 Ecg routine ecg w/le ast 12 lds w/i&r Nazario Smith MD Work Phone: Start: 12-23-2021 Hemorrhoidectomy DO Wes Ziegler Work Phone: Start: 11-05-2021 Diagnostic endoscopi c examination on colon DO Gume Ziegler Work Phone: SARS Antigen (LFIA) DO Gume Ziegler Work Phone: Plan of Treatment Date Care Activity Detail Author Start: 08-29-2031 DTaP/Tdap/Td Vaccine s (2 - Td or Tdap) DTaP/Tdap/Td Vaccines (2 - Td or Tdap) [facility] Start: 07-19-2024 End: 07-19-2024 Patient encounter procedure 07/19/2024 9:30 AM EST Office Visit [facility] [address] [facility] [address] [place] [address] Nazario Smith MD [address] [place] [address] [address] [place] [address] [facility] Start: 01-09-2024 End: 01-09-2024 Patient encounter procedure 01/09/2024 8:00 AM EDT Office Visit [facility] [address] [facility] [address] [place] [address] Rincon Jessica Berta, 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 [address] [facility] [address] [place] [address] [facility] Start: 07-11-2023 End: 07-11-2024 CBC panel - Blood by Automated count CBC Lab Routine Atrial 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, unspecified type (CMS/HCC) Primary hypertension Expected: 07/11/2023 (Approximate), Expires: 07/11/2024 [facility] Service Area Work Phone: Comment on above: Expected: 07/11/2023 (Approximate), Expires: 07/11/2024 Start: 07-11-2023 End: 07-11-2024 Comprehensive metabolic 2000 panel - Serum or Plasma Comprehensive Metabolic Panel Lab Routine Atrial 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, unspecified type (CMS/HCC) Primary hypertension Expected: 07/11/2023 (Approximate), Expires: 07/11/2024 [facility] Work Phone: Comment on above: Expected: 07/11/2023 (Approximate), Expires: 07/11/2024 Start: 07-11-2023 End: 07-11-2024 Lipid 1996 panel - Serum or Plasma Lipid Panel Lab Routine Mixed hyperlipidemia Expected: 07/11/2023 (Approximate), Expires: 07/11/2024 [facility] Work Phone: Comment on above: Expected: 07/11/2023 (Approximate), Expires: 07/11/2024 Start: 07-11-2023 End: 07-11-2023 Patient encounter procedure 07/11/2023 12:30 PM EST Office Visit [facility] [address] [facility] [address] [place] [id number] Nazario Smith MD [address] [place] [address] [address] [place] [address] Linda Start: 07-07-2023 End: 07-07-2023 Patient encounter procedure 07/07/2023 2:15 PM EST Appointment Helen Mckeon [address] [facility] [address] [place] [address] Helen Mckeon Start: 07-07-2023 End: 07-07-2023 Patient encounter procedure Helen Mckeon Start: 06-23-2023 End: 06-23-2024 CBC panel - Blood by Automated count CBC Lab Routine Hyperlipidemia, unspecified hyperlipidemia type Chest pain, unspecified type Primary hypertension Paroxysmal atrial 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 (CMS/HCC) Expected: 06/23/2023 (Approximate), Expires: 06/23/2024 [facility] Work Phone: Comment on above: Expected: 06/23/2023 (Approximate), Expires: 06/23/2024 Start: 06-23-2023 End: 06-23-2024 Comprehensive metabolic 2000 panel - Serum or Plasma Comprehensive Metabolic Panel Lab Routine Hyperlipidemia, unspecified hyperlipidemia type Chest pain, unspecified type Primary hypertension Paroxysmal atrial 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 (CMS/HCC) Expected: 06/23/2023 (Approximate), Expires: 06/23/2024 [facility] Work Phone: Comment on above: Expected: 06/23/2023 (Approximate), Expires: 06/23/2024 Start: 06-23-2023 End: 06-23-2024 Lipid 1996 panel - Serum or Plasma Lipid Panel Lab Routine Hyperlipidemia, unspecified hyperlipidemia type Chest pain, unspecified type Primary hypertension Paroxysmal atrial 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 (CMS/HCC) Expected: 06/23/2023 (Approximate), Expires: 06/23/2024 [facility] Work Phone: Comment on above: Expected: [...] 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 (CMS/HCC) Expected: 06/23/2023 (Approximate), Expires: 06/23/2025 [facility] Service Area Work Phone: Comment on above: Expected: 06/23/2023 (Approximate), Expires: 06/23/2025 Start: 06-23-2023 End: 06-23-2024 Thyrotropin [Units/volume] in Serum or Plasma Thyroid Stimulating Hormone Lab Routine Hyperlipidemia, unspecified hyperlipidemia type Chest pain, unspecified type Primary hypertension Paroxysmal atrial 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 (CMS/HCC) Expected: 06/23/2023 (Approximate), Expires: 06/23/2024 [facility] Work Phone: Comment on above: Expected: 06/23/2023 (Approximate), Expires: 06/23/2024 Start: 06-23-2023 End: 06-23-2024 Thyroxine (T4) free [Mass/volume] in Serum or Plasma Thyroxine, Free Lab Routine Hyperlipidemia, unspecified hyperlipidemia type Chest pain, unspecified type Primary hypertension Paroxysmal atrial 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 (CMS/HCC) Expected: 06/23/2023 (Approximate), Expires: 06/23/2024 [facility] Work Phone: Comment on above: Expected: 06/23/2023 (Approximate), Expires: 06/23/2024 Start: 06-23-2023 End: 06-23-2024 Triiodothyronine (T3) [Mass/volume] in Serum or Plasma Triiodothyronine, Total Lab Routine Hyperlipidemia, unspecified hyperlipidemia type Chest pain, unspecified type Primary hypertension Paroxysmal atrial 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 (CMS/HCC) Expected: 06/23/2023 (Approximate), Expires: 06/23/2024 [facility] Work Phone: Comment on above: Expected: 06/23/2023 (Approximate), Expires: 06/23/2024 Start: 01-28-2023 COVID-19 Vaccine () COVID-19 Vaccine () [facility] Start: 12-23-2021 [facility] Work Phone: Start: 12-23-2021 [facility] Work Phone: Start: 11-05-2021 [facility] Work Phone: Start: 01-06-2020 Pneumococcal Vaccine : 65+ Years (2 - PPSV23 or PCV20) Pneumococcal Vaccine: 65+ Years (2 - PPSV23 or PCV20) [facility] Start: 1991 Screening for malign ant neoplasm of breast Mammogram [facility] Start: 09-10-1969 Diabetes mellitus screening Diabetes Screening [facility] Start: 09-10-1969 Hepatitis C screening Hepatitis C Sc reening [facility] Start: 1950 Lipid panel Lipid Panel [facility] Start: 1950 Medicare Annual Well ness Visit Medicare Annual Wellness Visit (AWV) [facility] Start: 1950 Screening for malign ant neoplasm of colon [facility] Start: 1950 Screening for osteoporosis Bone Density Scan [facility] Patient Education Hemorrhoids Diverticulosis Dicyclomine [facility] Work Phone: Immunizations Immunization Date Immunization Notes Care Provider Cristiane smith 08-28-2021 COVID-19 mRNA-1273 (Moderna) DO Gume Ziegler Work Phone: [facility] 04-22-2021 COVID-19 mRNA-1273 (Moderna) DO Gume Ziegler Work Phone: [facility] 03-11-2021 Kenalog -40 mg Dede Calve y Other [facility] Other 09-25-2020 COVID-19 mRNA-1273 (Moderna) DO Gume Ziegler Work Phone: [facility] 08-28-2020 COVID-19 mRNA-1273 (Moderna) DO Gume Ziegler Work Phone: [facility] 12-31-2019 Kenalog -40 mg Dede Calve y Other [facility] Other 04-23-2019 Kenalog -40 mg Dede mathew Other [facility] Other Payers Date Payer Category Payer Unknown [id number] 2021 Self-pay [id number] 2021 Medicare AETNA MEDICARE A ETNA FRIEDMAN MEDICARE [id number] 2021-Present [address] [place] [address] [id number] 1959 Medicare [id number] [id number] 1951 Unknown [id number] 2.16.840.1.042982.3.579.2.593 1951 Unknown [id number] 2.16.840.1.975774.3.579.2.593 1951 Unknown [id number] 2.16.840.1.079214.3.579.2.593 1951 Unknown [id number] 2.16.840.1.109001.3.579.2.593 1951 Unknown [id number] 2.16.840.1.722127.3.579.2.593 1951 Unknown [id number] 2.16.840.1.414892.3.579.2.593 1951 Unknown [id number] 2.16.840.1.825065.3.579.2.1259 1951 Unknown [id number] 2.16.840.1.928779.3.579.2.1259 1951 Unknown [id number] 2.16.840.1.364474.3.579.2.1259 1951 Unknown [id number] 2.16.840.1.385831.3.579.2.6 1951 Unknown [id number] 2.16.840.1.155219.3.579.2.1245 1951 Unknown [id number] 2.16.840.1.597157.3.579.2.1245 1951 Unknown [id number] 2.16.840.1.931389.3.579.2.1245 1951 Unknown [id number] 2.16.840.1.389648.3.579.2.1245 1951 Unknown [id number] 2.16.840.1.327417.3.579.2.1243 1951 Unknown [id number] 2.16.840.1.228827.3.579.2.1244 Medicare [id number] 2.16.840.1.052450.19 Unknown [id number] 2.16.840.1.613381.19 Unknown [id number] 2.16.840.1.205449.3.579.2.531 Unknown [id number] 2.16.840.1.250492.3.579.2.531 Unknown [id number] 2.16.840.1.473554.3.579.2.531 Unknown [id number] 2.16.840.1.088528.3.579.2.531 Unknown [id number] 2.16.840.1.625853.3.579.2.531 Social History Date Type Detail Facility Unknown if ever smoked [facility] Other Start: 06-23-2023 End: 07-11-2023 Sex Assigned At [employer] Other Start: 12-23-2021 Tobacco smoking stat NHIS Smoker (finding) [facility] Start: 1950 Sex Assigned At Female F [facility] Start: 06-23-2023 [facility] History of tobacco use Cigarette Smoker [facility] Work Phone: Start: 06-23-2023 End: 07-11-2023 Cigarettes smoked current (pack per day) - Reported 0.3 [facility] Work Phone: Start: 06-23-2023 Tobacco use and exposure Smokeless tobacco non-user [facility] Work Phone: Start: 06-23-2023 End: 07-11-2023 Alcohol intake Lifetime non-drinker (finding) [facility] Work Phone: Start: 1950 Sex Assigned At Not on file [facility] Work Phone: Start: 06-13-2023 End: 07-11-2023 Exposure to SARS-CoV-2 (event) Not sure [facility] Goals Date Patient Goal Desired Activity /State Clinical Notes 03-11-2021 to 07-11-2023 Nazario Smith MD - 07/11/2023 12:30 PM ESTPatient InstructionsNazario Smith MD - 06/23/2023 11:15 AM ESTPatient Instructions Note Date & Type Note Facility 07-11-2023 History of Present illness Narrative Patient was seen initially 06/23/2023 for atrial 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. She has multiple cardiac risk factors. We ordered blood work, and nuclear perfusion study. Subjective : Significantly improved compared to last visit. Occasional palpitations. Found it difficult to walk on an incline on the treadmill, therefore she had Lexiscan Myoview. She says she worked in the yard all day Tuesday. Was repetitively bending and straightening up. Reviewed laboratory data from 06/24/2023 T3 132 Free T41.22 Hemoglobin 14 hematocrit 43 platelets 2 60,000. Reviewed results of the Lexiscan Myoview. Objective Failed to redirect to the Timeline version of the [employer]. Wt Readings from Last 3 Encounters: 07/11/23 64.4 kg (142 lb) 06/23/23 65.3 kg (144 lb) Visit Vitals BP 124/76 (BP Location: Left arm, Patient Position: Sitting) Pulse 60 Ht 1.575 m (5' 2 ) Wt 64.4 kg (142 lb) BMI 25.97 kg/m Smoking Status Every Day BSA 1.68 m Working on nicotine cessation, currently down to half pack per day or less, most the time about 5 cigarettes daily. Physical Exam: Patient is awake alert oriented x3, no acute distress Lungs are clear breath sounds are distant Heart sounds are regular without murmur rub or gallop Extremities show no edema Ambulates without assistance. Meds: Current Outpatient Medications Medication Instructions albuterol 90 [...] (COZAAR) 100 mg, oral, Daily metoprolol tartrate (LOPRESSOR) 25 mg, oral, 2 times daily pantoprazole (PROTONIX) 40 mg, oral, 2 times daily pramipexole (MIRAPEX) 0.5 mg, oral, Nightly Allergies Allergen Reactions Ciprofloxacin Unknown Codeine Unknown Metronidazole Unknown Penicillin G Unknown LABS: Reviewed Free T4 TSH and comprehensive profile. 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 snf current use of anticoagulant therapy 2. Atrial 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, unspecified type (CMS/HCC) Follow Up In Cardiology Follow Up In Cardiology CBC Comprehensive Metabolic Panel Follow Up In Cardiology 3. Gastroesophageal reflux disease, unspecified whether esophagitis present Follow Up In Cardiology Follow Up In Cardiology 4. Paroxysmal atrial 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 (CMS/HCC) Follow Up In Cardiology apixaban (Eliquis) 5 mg tablet Follow Up In Cardiology 5. Primary hypertension Follow Up In Cardiology losartan (Cozaar) 100 mg tablet metoprolol tartrate (Lopressor) 25 mg tablet CBC Comprehensive Metabolic Panel Follow Up In Cardiology 6. Mixed hyperlipidemia Follow Up In Cardiology atorvastatin (Lipitor) 10 mg tablet Lipid Panel Follow Up In Cardiology 7. Hypercoagulable state due to 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 (CMS/HCC) 8. Current every day smoker 9. Encounter to discuss test results If patient develops more frequent atrial 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, with symptoms, we can try flecainide. Encouraged her to continue her efforts at nicotine cessation Follow up : 6 months with Jessica Rincon NP, 1 year with me. Comprehensive profile CBC and lipid profile prior to the 6-month visit. Provider Attestation - Scribe documentation All medical record entries made by the Scribe were at my direction and personally dictated by me. I have reviewed the chart and agree that the record accurately reflects my personal performance of the history, physical exam, discussion and plan. documented in this encounter [facility] Work Phone: 07-11-2023 Instructions Merry Wilkerson CMA - 07/11/2023 12:30 PM EST Please bring all medicines, vitamins, and herbal supplements with you when you come to the office. Prescriptions will not be filled unless you are compliant with your follow up appointments or have a follow up appointment scheduled as per instruction of your physician. Refills should be requested at the time of your visit. documented in this encounter [facility] Work Phone: 06-23-2023 History of Present illness Narrative Referred by for Establish Care and Atrial Fibrillation (Onset new afib) History Of Present Illness: Sherri Villa is a 72 y.o. female presenting with history of atrial 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. Prior records reviewed, patient presented to Dr. Correa with palpitations. A Holter showed 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. 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 documented in this encounter [facility] Work Phone: 06-23-2023 Instructions Alex Hawley [...] in office today documented in this encounter [facility] Work Phone: 11-22-2022 Evaluation note Encounter [...] sooner if significantly worsening or changing appearance. 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) [facility] Other Evaluation noteNo InformationNort [employer] Other Evaluation note* Diagnosis Onset Date Resolution Status Abdominal pain acute Blood in stool [facility] Work Phone: Evaluation note* Diagnosis Atrial 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, unspecified type (CMS/HCC) Current every day smoker Gastroesophageal reflux disease, unspecified whether esophagitis present Hypercoagulable state due to 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 (CMS/HCC) 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 Hyperlipidemia, unspecified hyperlipidemia type Chest pain, unspecified type Primary hypertension Unspecified essential hypertension Paroxysmal atrial 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 (CMS/HCC) Atrial 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 documented in this encounter [facility] Work Phone: Evaluation note* Diagnosis 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- Primary Atrial 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, unspecified type (CMS/HCC) Gastroesophageal reflux disease, unspecified whether esophagitis present Paroxysmal atrial 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 (CMS/HCC) Atrial 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 Primary hypertension Unspecified essential hypertension Mixed hyperlipidemia Hypercoagulable state due to 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 (CMS/HCC) Current every day smoker Encounter to discuss test results Other specified counseling documented in this encounter [facility] Work Phone: History general Narrative - Reported* Type Description Date Medical History GERD Medical History PUD Medical History hyperlipidemia Medical History diverticulosis Medical History colon polyps Surgical History HYSTERECTOMY Surgical History APPENDECTOMY Surgical History HEMRRHOIDECTOMY 01/16/21 Hospitalization History SEE SURGERIES [place] [employer] Other Reason for referral (narrative)* Consultation (Routine) - Authorized Specialty Diagnoses / Procedures Referred By Contac t Referred To Contact Cardiology Diagnoses Atrial 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, unspecified type (CMS/HCC) Paroxysmal atrial 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 (CMS/HCC) Primary hypertension Mixed hyperlipidemia Procedures Follow Up In Cardiology Nazario Smith MD [address] [facility] [address] [place] [address] Jessica Rincon, 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 [address] [facility] [address] [place] [address] Referral ID Status Reason Start Date Expiration Date V isits Requested Visits Authorized [id number] Authorized 07/11/2023 07/10/2024 1 1 * Consultation (Routine) - Authorized Specialty Diagnoses / Procedures Referred By Love santiago Referred To Contact Cardiology Diagnoses Atrial 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, unspecified type (CMS/HCC) Gastroesophageal reflux disease, unspecified whether esophagitis present Paroxysmal atrial 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 (CMS/HCC) Primary hypertension Mixed hyperlipidemia Procedures Follow Up In Cardiology Nazario Smith MD [address] [facility] [address] [place] [address] Nazario Smith MD [address] [facility] [address] [place] [address] Referral ID Status Reason Start Date Expiration Date V isits Requested Visits Authorized [id number] Authorized 07/11/2023 07/10/2024 1 1 [facility] Work Phone: Chief Complaint and Reason for Visit Chief [...] Directives No December 16 4:35pm Summary Purpose Reason for Referral Specialty Diagnoses / Procedures Referred By Love santiago Referred To Contact Cardiology Diagnoses Hypercoagulable state due to 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 (CMS/HCC) snf current use of anticoagulant therapy Hyperlipidemia, unspecified hyperlipidemia type Chest pain, unspecified type Primary hypertension Paroxysmal atrial 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 (CMS/HCC) Procedures Nuclear Stress Test WV CV STRS TST XERS&/OR RX CONT ECG W/SI&R WV CV STRS TST XERS&/OR RX CONT ECG W/O I&R WV CV STRS TST XERS&/OR RX CONT ECG TRCG ONLY WV CV STRS TST XERS&/OR RX CONT ECG I&R ONLY CHG MYOCARDIAL SPECT MULTIPLE STUDIES Nazario Smith MD [address] [facility] [address] [place] [address] Referral ID Status Reason Start Date Expiration Date Visits Requested Visits Authorized [id number] Pending Review Perform Procedure 06/23/2023 06/22/2024 5 5 Specialty Diagnoses / Procedures Referred By Contac t Referred To Contact Diagnoses Atrial 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, unspecified type (CMS/HCC) Procedures ECG 12 Lead Nazario Smith MD [address] [address] Referral ID Status Reason Start Date Expiration Date V isits Requested Visits Authorized [id number] Authorized 06/23/2023 06/22/2024 1 1 Specialty Diagnoses / Procedures Referred By Contac t Referred To Contact Cardiology Diagnoses Atrial 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, unspecified type (CMS/HCC) Gastroesophageal reflux disease, unspecified whether esophagitis present Procedures Follow Up In Cardiology Nazario Smith MD [address] [place] [id number] Nazario Smith MD [address] [place] [id number] Referral ID Status Reason Start Date Expiration Date V isits Requested Visits Authorized [id number] Authorized 06/23/2023 06/22/2024 1 1 Additional Source Comments REASON FOR VISIT (unrecogniz ed section and content) Reason Comments Establish Care Atrial Fibrillation Onset new afib Specialty Diagnoses / Procedures Referred By Contac t Referred To Contact Diagnoses Atrial 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, unspecified type (CMS/HCC) Procedures ECG 12 Lead Nazario Smith MD [address] [place] [phone] Referral ID Status Reason Start Date Expiration Date V isits Requested Visits Authorized [id number] Authorized 06/23/2023 06/22/2024 1 1 Specialty Diagnoses / Procedures Referred By Contac t Referred To Contact Cardiology Diagnoses Hypercoagulable state due to 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 (CMS/HCC) snf current use of anticoagulant therapy Hyperlipidemia, unspecified hyperlipidemia type Chest pain, unspecified type Primary hypertension Paroxysmal atrial 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 (CMS/HCC) Procedures Nuclear Stress Test WV CV STRS TST XERS&/OR RX CONT ECG W/SI&R WV CV STRS TST XERS&/OR RX CONT ECG W/O I&R WV CV STRS TST XERS&/OR RX CONT ECG TRCG ONLY WV CV STRS TST XERS&/OR RX CONT ECG I&R ONLY CHG MYOCARDIAL SPECT MULTIPLE STUDIES Nazario Smith MD [address] [facility] [address] [place] [address] Referral ID Status Reason Start Date Expiration Date Visits Requested Visits Authorized [id number] Authorized Perform Procedure 06/23/2023 06/22/2024 5 5 Reason Comments Follow-up Stress results Specialty Diagnoses / Procedures Referred By Contac t Referred To Contact Cardiology Diagnoses Atrial 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, unspecified type ([facility]) Gastroesophageal reflux disease, unspecified whether esophagitis present Procedures Follow Up In Cardiology Nazario Smith MD [address] [facility] [address] [place] [address] Nazario Smith MD [address] [place] [id number] Referral ID Status Reason Start Date Expiration Date V isits Requested Visits Authorized [id number] Authorized 06/23/2023 06/22/2024 1 1 Care Teams (unrecognized sec tion and content) Team Status: Inactive Member Role Status Dates Shaikh Ashley MD Primary Care Provider Active Gabriel Qiu DO Attending Provider Active Team Status: Inactive Member Role Status Dates Gume Ziegler DO Attending Provider Active Shaikh Ashley MD Primary Care Provider Active Team Status: Active Member Role Status Dates Shaikh Ashley MD Primary Care Provider Active [employer] Machine Operator Relationship Specialty Start Date End Date Shaikh Ramirez MD [address] [place] [id number] PCP - General Internal Medicine 06/03/23 [employer] Machine Operator Relationship Specialty Start Date End Date Shaikh Ramirez MD [address] [place] [id number] PCP - General Internal Medicine 06/03/23 [employer] Machine Operator Relationship Specialty Start Date End Date Shaikh Ramirez MD [address] [place] [id number] PCP - General Internal Medicine 06/03/23 [employer] Machine Operator Relationship Specialty Start Date End Date Shaikh Ramirez MD PCP - General Internal Medicine 06/03/23 INFORMATION SOURCE (unrecogn ized section and content) DATE CREATED AUTHOR 04/12/2022 [facility] DATE CREATED AUTHOR AUTHOR'S ORGANIZ ATION 07/03/2022 [facility] DATE CREATED AUTHOR AUTHOR'S ORGANIZ ATION 03/25/2023 [facility] DATE CREATED AUTHOR AUTHOR'S ORGANIZ ATION 06/30/2023 [facility] DATE CREATED AUTHOR AUTHOR'S ORGANIZ ATION 07/12/2023 [facility] DATE CREATED AUTHOR AUTHOR'S ORGANIZ ATION 07/13/2023 [facility] FOR RECORDS PERTAINING TO PATIENTS WHO ARE [...] BE BASED ON THE PRIMARY CLINICAL RECORDS. [employer] provides no warranty or guarantee of the accuracy or completeness of information in this document.
[2023-07-14 09:29] LABS: Alanine Aminotransferase 20 U/L (14-59); Albumin Globulin Ratio 0.9; Albumin Level 3.5 g/dL (3.4-5.0); Alkaline Phosphatase 83 U/L (46-116); Aspartate Amino Transferase 10 U/L (15-37); Bilirubin Total 0.4 mg/dL (0.2-1.0); Calcium 9.6 mg/dL (8.5-10.1); Carbon Dioxide 30.2 mmol/L (21.0-32.0); Chloride 106 mmol/L (98-107); Chol HDL Ratio 2.9; Cholesterol 153 mg/dL (<=200); Estimated GFR (African America >60 (>=60); Estimated GFR (Non-African Ame >60 (>=60); Globulin 3.8 g/dL; Glucose 91 mg/dL (74-106); HDL Cholesterol 52 mg/dL (40-60); LDL Cholesterol Calculated 76.8 mg/dL; Potassium 4.2 mmol/L (3.5-5.1); Sodium 143 mmol/L (136-145); Total Protein 7.3 g/dL (6.4-8.2); Triglycerides 121 mg/dL (<=150); VLDL CHOLESTEROL 24.2 mg/dL
== END 2023-07-14 08:45 | disposition home or self-care (01) ==
PROVIDERS: PCP Internal Medicine
DX: I48.91 Unspecified atrial 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 (principal); I10 Essential (primary) hypertension; E78.2 Mixed hyperlipidemia
CPT/HCPCS: 36415; 80053; 80061; 85025

== ENCOUNTER 2023-11-09 09:07 | Outpatient (OUT) | payer MEDICARE, SELFPAY ==
--- OUTSIDE RECORDS SUMMARY | 2023-11-09 09:18 | XMS_ITS | CCD ---
Author Organization [facility] Inform ion [facility] Care Team Providers Care Cigarette Vendor Name Role Phone Tierrarene Dede Unavailable Jaime Paulino Unavailable Gume Ziegler Unavailable DO Gume Ziegler Attending Provider MD Nevin Ramirez Primary Care Provider DO Gabriel Qiu Attending Provider [phone] FAWWAD, ROONEY H Admitting Unavailable FAWWAD, [...] Care Unavailable Fawwad, Rooney Primary Care Unavailable Gabriel Qiu Attending Unavailable Gabriel Qiu Admitting Unavailable Fawwad, [facility] Primary Care Unavailable Lazarus, Gabriel Attending Unavailable Lazarus, Gabriel Admitting Unavailable Gume Ziegler Attending Unavailable Hyphilippe, Gume Stark Admitting Unavailable Fawwad, [facility] Primary Care Unavailable Gume Ziegler Attending Unavailable Hykes, Gume Stark Admitting Unavailable Fawwad, [facility] Primary Care Unavailable Fawwad, [facility] Primary Care Unavailable Gabriel Qiu Attending Unavailable Lazarus, Gabriel Admitting Unavailable Gracia Woodruff Unavailable Shaikh Ramirez MD Primary Care Provider JOLLY SMITH Referring Unavailable [facility] Primary Care Unavailable JOLLY SMITH Attending Unavailable [facility] Primary Care Unavailable JORDAN SMITHA Referring Unavailable JOLLY SMITH Attending Unavailable JORDAN SMITHA Referring Unavailable [facility] Primary Care Unavailable Shaikh Ramirez MD Primary Care Provider [phone] Shaikh Ramirez MD Primary Care Provider [phone] SHAIKH RAMIREZ Attending Unavailable SHAIKH RAMIREZ Attending Unavailable SHAIKH RAMIREZ Attending Unavailable FAHARSH, Attending Unavailable Allergies Allergy Classification Reported Allergen(s) Allergy Type Date of Onset Reaction(s) Facility (16 sources) Ciprofloxacin; Translations: [CIPROFLOXACIN] Drug Allergy 3 Unknown [facility] (18 sources) Codeine; Translations: [CODEINE] Drug Allergy 2 [facility] (18 sources) metroNIDAZOLE; Translations: [METRONIDAZOLE] Drug Allergy 2 [facility] (9 sources) Penicillin V Drug Allergy I & Combine Other (3 sources) Cefaclor; Translations: [cefaclor] Drug Allergy [address] [facility] (3 sources) Dicyclomine; Translations: [dicyclomine] Drug Allergy 2 [facility] (5 sources) Penicillins; Translations: [Penicillins] Allergy to substance 3 [facility] (1 source) Adhesive agent Drug allergy (disorder) [facility] (1 source) Ciprofloxacin Drug Allergy 4 [facility] (1 source) Codeine Drug Allergy 3 [facility] (1 source) Latex Drug allergy (disorder) [facility] (1 source) NSAIDs Drug allergy (disorder) 3 [facility] (1 source) Codeine Drug Allergy 2 [facility] Rep[facility] (1 source) metroNIDAZOLE Drug Allergy 2 [facility] (6 sources) Penicillin G; Translations: [PENICILLIN G] Drug Allergy 4 [facility] Work Phone: Medications Current Medications Medication Drug Class(es) Dates Sig (Normalized) Sig (Original) [id number] 200 actuat albuterol 0.09 mg/actuat metered dose inhaler (16 sources) beta2-Adrenergic Agonist Start: 03-02-2023 take 2 puff(s) by inhalation every four hours for wheezing albuterol 90 mcg/actuation inhaler Inhale 2 puffs every 4 hours if needed for wheezing. 0 03/02/2023 Active Start: 01-16-2021 Albuterol Sulf ate (Ventolin Hfa) 90 mcg/actuation Hfa Aerosol Inhaler Active 2 PUFF INHALATION As Directed January 16, 2021 12:00am take 2 puff(s) by in halation every four hours for wheezing albuterol HFA 90 mcg/act inhaler Inhale 2 puffs every 4 (four) hours if needed for wheezing 0 Active take 2 puff(s) by in halation every four hours as needed Ventolin HFA 108 (90 Base) MCG/ACT 2 puffs Inhalation every 4 hrs prn Active alendronic acid 70 mg oral tablet (16 sources) Bisphosphonate Start: 05-29-2023 take 1 tablet by mouth every week alendronate (Fosamax) 70 mg tablet Take 1 tablet (70 mg) by mouth 1 (one) time per week. 0 05/29/2023 Active Start: 01-16-2021 take 70 mg by mouth every week Alendronate Active 70 MG PO every week January 16, 2021 12:00am take 1 tablet by chi th in the morning alendronate (Fosamax) 70 MG tablet Take 70 mg by mouth every 7 (seven) days Take in the morning with a full glass of water, on an empty stomach, and do not take anything else by mouth or lie down for the next 30 min. 0 Active amLODIPine 10 mg oral tablet (2 sources) Dihydropyridine Calcium Channel Jessie Start: 11-03-2021 take 10 mg by mouth once daily in the morning Amlodipine Active 10 MG PO Every morning November 03, 2021 12:00am Anoro Ellipta 62.5-25 MCG/INH (1 source) take 1 puff(s) by inhalation once daily Anoro Ellipta 62.5-25 MCG/INH 1 puff Inhalation Once a day Active apixaban 5 mg oral tablet (6 sources) Factor Xa Inhibitor Start: 06-01-2023 End: 07-10-2024 take 1 tablet by mouth twice daily apixaban (Eliquis) 5 mg tablet Indications: Paroxysmal atrial 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 (CMS/HCC) Take 1 tablet (5 mg) by mouth 2 times a day. 180 tablet 2 07/11/2023 07/10/2024 Active atorvastatin 10 mg oral tablet (17 sources) HMG-CoA Reductase Inhibitor Start: 05-01-2023 End: [...] 12:00am calcium carbonate 1250 mg / cholecalciferol 200 unt oral tablet (7 sources) Vitamin D Start: 06-29-2023 End: 09-27-2023 take 1 tablet by mouth once Calcium Carb-Cholecalciferol (Calcium 500 + D) 500-5 MG-MCG tablet Indications: Age-related osteoporosis without current pathological fracture (CMS/HCC) Take 1 tablet by mouth every 12 (twelve) hours 180 tablet 1 06/29/2023 09/27/2023 Active Start: 09-01-2022 take 2 tablets by [facility] every twelve hours Calcium 500 With D 500 mg-10 mcg (400 unit) tablet Take 2 tablets by mouth every 12 hours. 0 09/01/2022 Active Start: 11-03-2021 take 2 tablets by [facility] twice daily Calcium Carbonate-Vitamin D3 (Oyster Shell [...] PO Every morning December 11, 2021 12:00am diphenhydrAMINE hydrochloride 20 mg/ml / zinc acetate 1 mg/ml topical cream (2 sources) Histamine-1 Receptor Antagonist diphenhydrAMINE-zinc acetate cream Apply 1 application topically in the morning and 1 application before bedtime. 0 Active End: 06-23-2023 diphenhydramine-zinc acetate cream Apply topically once daily at bedtime. 0 06/23/2023 Discontinued (Therapy completed) docusate sodium 100 mg oral capsule (10 sources) Start: 12-11-2021 take 1 capsule by mouth once daily Docusate Sodium (Colace) 100 mg Capsule Active 100 MG PO Daily December 11, 2021 12:00am Start: 12-18-2020 take 1 capsule by [facility] every twelve hours Colace 100 MG 1 CAPSULE Orally TWICE A DAY for 30 day(s) Nov, Not-Taking fluticasone propionate 0.05 mg/actuat metered dose nasal spray (5 sources) Corticosteroid take 2 spray(s) nasa l route in the morning fluticasone (Flonase Allergy Relief) 50 MCG/ACT nasal spray Administer 2 sprays into each nostril in the morning. Shake gently. Before first use, prime pump. After use, clean tip and replace cap.. 0 Active take 2 spray(s) nasal route once daily [...] Active losartan potassium 100 mg oral tablet (6 sources) Angiotensin 2 Receptor Jessie Start: 05-03-2023 End: 07-10-2024 take 1 tablet by mouth once daily losartan (Cozaar) 100 mg tablet Indications: Primary hypertension Take 1 tablet (100 mg) by mouth once daily. 90 tablet 2 07/11/2023 07/10/2024 Active methylPREDNISolone 4 mg oral tablet (7 sources) Corticosteroid Start: 04-08-2021 Medrol 4 MG as directed Orally Mar, Active metoprolol tartrate 25 mg oral tablet (6 sources) beta-Adrenergic Jessie Start: 06-27-2023 End: 07-10-2024 take 1 tablet by mouth twice daily metoprolol tartrate (Lopressor) 25 mg tablet Indications: Primary hypertension Take 1 tablet (25 mg) by mouth 2 times a day. 180 tablet 3 07/11/2023 07/10/2024 Active pantoprazole 40 mg delayed release oral tablet (18 sources) Proton Pump Inhibitor Start: 03-14-2023 End: 09-27-2023 take 1 tablet by mouth once pantoprazole (ProtoNix) 40 MG EC tablet Indications: Gastroesophageal reflux disease without esophagitis Take 1 tablet (40 mg) by mouth every 12 (twelve) hours Do not crush, chew, or split. 180 tablet 0 06/29/2023 09/27/2023 Active Start: 03-14-2023 take 1 tablet by chi th twice daily pantoprazole (ProtoNix) 40 mg EC tablet Take 1 tablet (40 mg) by mouth 2 times a day. 0 03/14/2023 Active Start: 12-11-2021 take 40 mg by mouth once daily in the morning Pantoprazole Active 40 MG PO Every morning December 11, 2021 12:00am Start: 01-16-2021 End: 11-03-2021 take 40 mg by mouth once daily Pantoprazole Discontinu ed 40 MG PO Daily January 16, 2021 12:00am November 03, 2021 1:12pm pramipexole dihydrochloride 0.5 mg oral tablet (16 sources) Nonergot Dopamine Agonist Start: 04-03-2023 take 1 tablet by mouth once daily at bedtime pramipexole (Mirapex) 0.5 MG tablet Indications: Restless legs syndrome TAKE 1 TABLET BY MOUTH EVERYDAY AT BEDTIME 90 tablet 1 06/28/2023 Active Start: 01-16-2021 take 0.5 mg by [...] tablet Active 50 MG PO Q6H 30 December 23, 2021 12:00am 1/2 - 1 tab po q 6 hours prn pain 30 actuat umeclidinium 0.0625 mg/actuat / vilanterol 0.025 mg/actuat dry powder inhaler (15 sources) Anticholinergic , beta2-Adrenergi c Agonist Start: 06-01-2023 Anoro Ellipta 62.5-25 mcg/actuation blister with device Inhale 1 puff. 0 06/01/2023 Active Start: 01-16-2021 Umeclidinium-V ilanterol (Anoro Ellipta) 62.5-25 mcg/actuation blister with device Active 1 EACH INHALATION Every morning January 16, 2021 12:00am Umeclidinium-Luis Alberto anterol (Anoro Ellipta) 62.5-25 MCG/ACT aerosol powder Inhale 0 Active take 1 puff(s) by inhalation once daily [...] (1 source) Idiopathic urticaria Episodic Cardiac dysrhythmias (20 sources) Atrial 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; Translations: [Unspecified atrial 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] Onset: 3 Resolved: 4 06-23-2023 Chronic Chronic obstructive pulmonary disease and bronchiectasis (1 source) Pulmonary emphysema; Translations: [Other emphysema] Onset: 3 05-17-2023 Chronic Coagulation and hemorrhagic disorders (11 sources) Other thrombophilia; Translations: [Secondary hypercoagulable state] Onset: 4 06-23-2023 Chronic Conditions associated with dizziness or vertigo (4 sources) Dizziness and giddiness; Translations: [DIZZINESS AND GIDDINESS] Onset: 2 Episodic Disorders of lipid metabolism (15 sources) Hyperlipidemia, unspecified; Translations: [Hyperlipidemia] Onset: 2 06-23-2023 Chronic Diverticulosis and diverticulitis (18 sources) Diverticulosis of sigmoid colon; Translations: [Diverticulosis of large intestine without perforation or abscess without bleeding] Chronic Esophageal disorders (9 sources) Gastroesophageal reflux disease; Translations: [Gastro-esophageal reflux disease without esophagitis] Onset: 4 06-23-2023 Chronic Essential hypertension (15 sources) Essential (primary) hypertension; Translations: [Essential hypertension] Onset: 2 Chronic Fluid and electrolyte disorders (1 source) Dehydration; Translations: [DEHYDRATION] Onset: 2 Episodic Hemorrhoids (3 sources) Hemorrhoids; Translations: [Unspecified hemorrhoids] Onset: 4 12-23-2021 Episodic Nonspecific chest pain (9 sources) Chest pain; Translations: [Chest pain, unspecified] Onset: 4 06-23-2023 Episodic Osteoarthritis (20 sources) Arthritis of left wrist; Translations: [Primary osteoarthritis, left wrist] Onset: 1 Resolved: 1 Chronic Other aftercare (1 source) Other long-term (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 therapy; Translations: [OTH NATUROPATHIC ONCOLOGY PROVIDER CURRENT DRUG THERAPY] Onset: 2 Episodic Other aftercare (6 sources) Long-term current use of anticoagulant; Translations: [shelter (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 anticoagulants] Onset: 4 06-23-2023 Episodic Other aftercare (4 sources) buttermaker helper (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 anticoagulants; Translations: [buttermaker helper (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 anticoagulants] Onset: 4 Episodic Other and unspecified benign neoplasm (9 sources) History of polyp of colon; Translations: [Personal history of colonic polyps] Episodic Other and unspecified benign neoplasm (9 sources) Tubular adenoma of colon; Translations: [Benign neoplasm of colon, unspecified] Episodic Other bone disease and musculoskeletal deformities (1 source) Osteopenia; Translations: [Other specified disorders of bone density and structure, multiple sites] Onset: 3 05-17-2023 Episodic Other gastrointestinal disorders (9 sources) Irritable bowel syndrome with diarrhea; Translations: [Irritable bowel syndrome with diarrhea] Chronic Other gastrointestinal disorders (9 sources) Constipation; Translations: [Constipation, unspecified] Episodic Other hereditary and degenerative nervous system conditions (1 source) Restless legs syndrome; Translations: [RESTLESS LEGS SYNDROME] Onset: 2 Chronic Other hereditary and degenerative nervous system conditions (1 source) Myoclonus; Translations: [MYOCLONUS] Onset: 2 Chronic Other hereditary and degenerative nervous system conditions (1 source) Restless legs; Translations: [Restless legs syndrome] Onset: 3 05-17-2023 Chronic Other screening for suspected conditions (not mental disorders or infectious disease) (5 sources) Encounter for screening mammogram for malignant neoplasm of breast; Translations: [Patient encounter status] Onset: 2 Episodic Substance-related disorders (10 sources) Smokes tobacco daily; Translations: [Nicotine dependence, unspecified, uncomplicated] Onset: 3 06-23-2023 Chronic Unclassified (1 source) Encounter for preprocedural laboratory examination; Translations: [Encounter for preprocedural laboratory examination] Onset: 2 Unclassified (1 source) Z01.812 - Encounter for preprocedural laboratory examination; Translations: [Z01.812 - Encounter for preprocedural laboratory examination] Onset: 2 Past or Other Problems Problem Classification Problem Date Documented Da te Episodic/Chronic Gastrointestinal hemorrhage (7 sources) Melena; Translations: [Hematochezia] Onset: 10-28-2021 Resolved: 10-28-2021 Episodic Mood disorders (1 source) Mood disorders Onset: 05-17-2023 05-17-2023 Other circulatory disease (4 sources) Elevated blood-pressure reading, without diagnosis of hypertension; Translations: [ELEVATED BP READING W/O DX HTN] Onset: 10-13-2021 Episodic Other connective tissue disease (3 sources) Radial styloid tenosynovitis [de Quervain]; Translations: [De Quervain's tenosynovitis, left M65.4] Onset: 03-11-2021 Resolved: 12-08-2021 Episodic Other gastrointestinal disorders (1 source) Personal history of other diseases of the digestive system; Translations: [Personal history of other diseases of the digestive system] Onset: 11-05-2021 Episodic Other non-traumatic joint disorders (3 sources) Pain in left wrist; Translations: [Left wrist pain M25.532] Onset: 03-11-2021 Resolved: 05-06-2021 Episodic Unclassified (4 sources) Onset: 06-23-2023 Resolved: 07-11-2023 06-23-2023 Results Test Name Value Interpretation Reference Range Facility ALL CBC WITH AUTO DIFFon BASOPHILS ABSOLUTE AUTO 0.1 [facility] Basophils/100 WBC (Bld) 0.7 % 0.2 - 2.0 % [facility] Eosinophils/100 WBC (Bld) 1.9 % 0.9 - 7.0 % [facility] Erythrocyte distribution width (RBC) [Ratio] 13.7 % 11.0 - 15.0 % [facility] Hematocrit (Bld) [Volume fraction] 44.8 % 36.0 - 48.0 % [facility] Hemoglobin (Bld) [Mass/Vol] 14.3 g/dL 12.0 - 16.0 g/dL [facility] IMMATURE GRANULOCYTES ABS AUTO 0.02 [facility] Immature granulocytes/100 WBC (Bld) 0.3 % 0.0 - 0.5 % [facility] LYMPHOCYTES ABSOLUTE AUTO 2.4 [facility] Lymphocytes/100 WBC (Bld) 31.9 % 20.5 - 60.0 % [facility] MCH (RBC) [Entitic mass] 30.6 pg 26.7 - 34.0 pg [facility] MCHC (RBC) [Mass/Vol] 31.9 g/dL 29.9 - 35.2 g/dL [facility] MCV (RBC) [Entitic vol] 95.7 fL 81.0 - 99.0 fL [facility] MONOCYTES ABSOLUTE AUTO 0.5 [facility] Monocytes/100 WBC (Bld) 7.0 % 1.7 - 12.0 % [facility] NEUTROPHILS ABSOLUTE AUTO 4.4 [facility] Neutrophils/100 WBC (Bld) 58.2 % 43.0 - 75.0 % [facility] Platelet mean volume (Bld) [Entitic vol] 10.7 fL 9.5 - 13.5 fL [facility] TBH EO # 0.1 [facility] PLT 219 [facility] RBC 4.68 [facility] WBC 7.5 [facility] NM Heart Perfusion W stress and W radionuclide Jesse 07-07-2023 Normal Lexiscan Myoview cardiac perfusion stress test. No evidence of ischemia or myocardial infarction by perfusion imaging. Normal left ventricular systolic function, ejection fraction 77%. No previous studies are available for comparison. Signed by: Luisa Cabrera 07/07/2023 4:22 PM Dictation workstation: [id number] Interpreted By: Luisa Cabrera and Beal Gina STUDY: MYOCARDIAL PERFUSION STRESS TEST WITH LEXISCAN Performing facility: [facility], [address] [place] [address], [address], [address] Provider: Jolly Smith MD, FACC PCP: Dr. Reyna RAMIREZ Supervising provider: Jolyl Smith MD, FACC INDICATION: Atherosclerosis of coronary artery of [place] heart without angina pectoris, unspecified vessel or lesion type I25.10 (ICD-10-CM); Chest pain, unspecified type R07.9 (ICD-10-CM) HISTORY: Gender: F; Age: 72 y/o ; Height: HT 157.5 cm cm; Weight: WT 65.318 kg kg. CAD; Chest Pain; HTN; COPD; SOB; Arrhythmias; AFib, Palpitations; Currently smoking. COMPARISON: No comparison. ACCESSION NUMBER(S): [id number] ORDERING CLINICIAN: JOLLY SMITH TECHNIQUE: ONE DAY protocol. Stress injection: [...] PERFUSION STRESS TEST WITH LEXISCAN Performing facility: [facility], [address] [place] [address], [address], [address] Provider: Jolly Smith MD, FACC PCP: Dr. Reyna RAMIREZ Supervising provider: Jolly Smith MD, FACC INDICATION: Atherosclerosis of coronary artery of [place] heart without angina pectoris, unspecified vessel or lesion type I25.10 (ICD-10-CM); Chest pain, unspecified type R07.9 (ICD-10-CM) HISTORY: Gender: F; Age: 72 y/o ; Height: HT 157.5 cm cm; Weight: WT 65.318 kg kg. CAD; Chest Pain; HTN; COPD; SOB; Arrhythmias; AFib, Palpitations; Currently smoking. COMPARISON: No comparison. ACCESSION NUMBER(S): [id number] ORDERING CLINICIAN: JOLLY SMITH TECHNIQUE: ONE DAY protocol. Stress injection: [...] Luisa Cabrera 07/07/2023 4:22 PM Dictation workstation: [id number] [facility] Work Phone: Radiology Study observation (narrative) [facility] Work Phone: NM Heart Perfusion W stress and W radionuclide IVOrdered By: Luisa Cabrera on 07-07-2023 [facility] Work Phone: NUCLEAR STRESS TESTon 2023 NUCLEAR STRESS TEST Interpreted By: Luisa Cabrera and Beal Gina STUDY: MYOCARDIAL PERFUSION STRESS TEST WITH LEXISCAN Performing facility: [facility], [address] [place] [address], [address], [address] Provider: Jolly Smith MD, FACC PCP: Dr. Reyna RAMIREZ Supervising provider: Jolly Smith MD, FACC INDICATION: Atherosclerosis of coronary artery of [place] heart without angina pectoris, unspecified vessel or lesion type I25.10 (ICD-10-CM); Chest pain, unspecified type R07.9 (ICD-10-CM) HISTORY: Gender: F; Age: 72 y/o ; Height: HT 157.5 cm cm; Weight: WT 65.318 kg kg. CAD; Chest Pain; HTN; COPD; SOB; Arrhythmias; AFib, Palpitations; Currently smoking. COMPARISON: No comparison. ACCESSION NUMBER(S): [id number] ORDERING CLINICIAN: JOLLY SMITH TECHNIQUE: ONE DAY protocol. Stress injection: [...] Luisa Cabrera 07/07/2023 4:22 PM Dictation workstation: [id number] [facility] 12 [place] 06-23-2023 [facility] Work Phone: Patient Letter FTMCon 2022 Patient Letter [facility] March 23, 2023 [address] [facility] [place] [address] : 1950 Dear Cydney, This is a reminder that you are due for an appointment with [facility]. Please contact our office at [phone] to schedule an appointment at your earliest convenience. Thank you, [facility] Reminderson 03-23-2023 Reminders - From: Juliane Gillis MA To: [facility] - Reminders/Recalls; Sent: 02/04/2023 13:34:26 EDT Show up: 02/04/2023 13:34:00 EDT Subject: colon recall Reminder Message 10 year recall Yehuda 09/22/12 first recall letter second recall letter [facility] Patient Letter FTon 2022 Patient Letter FT February 07, 2023 [address] [place] [address] : 1950 Dear Cydney, This is a reminder that you are due for an appointment with [facility]. Please contact our office at [phone] to schedule an appointment at your earliest convenience. Thank you, [facility] September 29, 2022 [address] [place] [address] [address] 1950 Dear Cydney, This is a SECOND ATTEMPT to remind you that you are due for an appointment with [facility]. Please contact our office at [phone] to schedule an appointment at your earliest convenience. Thank you, [facility] Reminderson 09-29-2022 Reminders - From: Ligia Roberts To: [facility] - Reminders/Recalls; Sent: 09/13/2022 10:56:07 EDT Show up: 09/13/2022 10:56:00 EDT Subject: Ambulatory Reminder Reminder/Recall arturo aguilar 10 year colon recall 09/19/2022 first recall letter second recall letter [facility] Patient Letter FTon 2022 Patient Letter FT September 13, 2022 [address] [place] [address] [address] 1950 Dear Cydney, This is a reminder that you are due for an appointment with [facility]. Please contact our office at [phone] to schedule an appointment at your earliest convenience. Thank you, [facility] PROF CHEM 8 (BAS METB)on Anion gap [Moles/Vol] 10.8 mmol/L Normal [facility] Comment on above: Performed By: #### B MP #### [facility] [address] [address] [address] Josef Fraire Calcium [Mass/Vol] 9.4 mg/dL Normal 8.5-10.1 [facility] Comment on above: Performed By: #### B MP #### [facility] [address] [address] [address] Josef Fraire Chloride [Moles/Vol] 104 mmol/L Normal 98-107 [facility] Comment on above: Performed By: #### B MP #### [facility] [address] [address] [address] Josef Fraire CO2 [Moles/Vol] 28.4 mmol/L Normal 21.0-32.0 [facility] Comment on above: Performed By: #### B MP #### [facility] [address] [address] [address] Josef Fraire Creatinine [Mass/Vol] 1.03 mg/dL Critically high 0.55-1.02 [facility] Comment on above: Performed By: #### B MP #### [facility] [address] [address] [address] Josef Fraire EGFR-AF BOTSWANAN >60 Normal >=60 [facility] Comment on above: Performed By: #### B MP #### [facility] [address] [address] [address] Josef Fraire EGFR-NON AF BOTSWANAN 53 mL/min/1.73m2 Critically low >=60 [facility] Comment on above: Performed By: #### B MP #### [facility] [address] [address] [address] Josef Fraire Glucose [Mass/Vol] 82 mg/dL Normal 74-106 [facility] Comment on above: Performed By: #### B MP #### [facility] [address] [address] [address] Josef Fraire Potassium [Moles/Vol] 4.2 mmol/L Normal 3.5-5.1 [facility] Comment on above: Performed By: #### B MP #### [facility] [address] [address] [address] Josef Fraire Sodium [Moles/Vol] 139 mmol/L Normal 136-145 [facility] Comment on above: Performed By: #### B MP #### [facility] [address] [address] [address] Josef Fraire Urea nitrogen [Mass/Vol] 10.0 mg/dL Normal 7.0-18.0 [facility] Comment on above: Performed By: #### B MP #### [facility] [address] [place] [address] Dr. Josef Fraire Urea nitrogen/Creatinine [Mass ratio] 9.7 mg/mg Normal [facility] Comment on above: Performed By: #### B MP #### [facility] [address] [address] [address] Josef Fraire CBC AUTO DIFFon 01-28-2022 BASO # 0.1 103/ul Normal 0.0-0.1 [facility] Comment on above: Performed By: #### C BC #### [facility] [address] [place] [address] Dr. Josef Fraire Basophils/100 WBC (Bld) 0.6 % Normal 0.2-2.0 [facility] Comment on above: Performed By: #### C BC #### [facility] [address] [place] [address] Dr. Josef Fraire EO # 0.2 103/ul Normal 0.0-0.7 [facility] Comment on above: Performed By: #### C BC #### [facility] [address] [place] [address] Dr. Josef Fraire Eosinophils/100 WBC (Bld) 1.5 % Normal 0.9-7.0 [facility] Comment on above: Performed By: #### C BC #### [facility] [address] [place] [address] Dr. Josef Fraire Erythrocyte distribution width (RBC) [Ratio] 13.4 % Normal 11.0-15.0 [facility] Comment on above: Performed By: #### C BC #### [facility] [address] [place] [address] Dr. Josef Fraire Hematocrit (Bld) [Volume fraction] 43.0 % Normal 36.0-48.0 [facility] Comment on above: Performed By: #### C BC #### [facility] [address] [place] [address] Dr. Josef Fraire Hemoglobin (Bld) [Mass/Vol] 14.6 g/dL Normal 12.0-16.0 [facility] Comment on above: Performed By: #### C BC #### [facility] [address] [place] [address] Dr. Josef Fraire IG # 0.05 10e3/ul Critically high 0.00-0.[address] [facility] Comment on above: Performed By: #### C BC #### [facility] [address] [place] [address] Dr. Josef Fraire IG % 0.5 % Normal 0.0-0.5 [facility] Comment on above: Performed By: #### C BC #### [facility] [address] [place] [address] Dr. Josef Fraire LYMPH # 3.1 103/ul Normal 1.2-3.8 [facility] Comment on above: Performed By: #### C BC #### [facility] [address] [place] [address] Dr. Josef Fraire Lymphocytes/100 WBC (Bld) 29.5 % Normal 20.5-60.0 [facility] Comment on above: Performed By: #### C BC #### [facility] [address] [place] [address] Dr. Josef Fraire MANUAL DIFF REQ NO Normal [facility] Comment on above: Performed By: #### C BC #### [facility] [address] [place] [address] Dr. Josef Fraire MCH (RBC) [Entitic mass] 30.0 pg Normal 26.7-34.0 The [facility] Comment on above: Performed By: #### C BC #### [facility] [address] [place] [address] Dr. Josef Fraire MCHC (RBC) [Mass/Vol] 34.0 g/dL Normal 29.9-35.2 The [facility] Comment on above: Performed By: #### C BC #### [facility] [address] [place] [address] Dr. Josef Fraire MCV (RBC) [Entitic vol] 88.3 fL Normal 81.0-99.0 The [facility] Comment on above: Performed By: #### C BC #### [facility] [address] [place] [address] Dr. Josef Fraire MONO # 0.7 103/ul Normal 0.3-0.8 The [facility] Comment on above: Performed By: #### C BC #### [facility] [address] [place] [address] Dr. Josef Fraire Monocytes/100 WBC (Bld) 6.8 % Normal 1.7-12.0 [facility] Comment on above: Performed By: #### C BC #### [facility] [address] [place] [address] Dr. Josef Fraire NEUT # 6.5 103/ul Normal 1.4-6.5 The [facility] Comment on above: Performed By: #### C BC #### [facility] [address] [place] [address] Dr. Josef Fraire Neutrophils/100 WBC (Bld) 61.1 % Normal 43.0-75.0 The [facility] Comment on above: Performed By: #### C BC #### [facility] [address] [place] [address] Dr. Josef Fraire Platelet mean volume (Bld) [Entitic vol] 10.7 fL Normal 9.5-13.5 The [facility] Comment on above: Performed By: #### C BC #### [facility] [address] [place] [address] Dr. Josef Fraire PLT 313 103/ul Normal 150-450 [facility] Comment on above: Performed By: #### C BC #### [facility] [address] [place] [address] Dr. Josef Fraire RBC 4.87 106/ul Normal 4.20-5.40 [facility] Comment on above: Performed By: #### C BC #### [facility] [address] [place] [address] Dr. Josef Fraire WBC 10.7 103/ul Normal 4.0-11.0 [facility] Comment on above: Performed By: #### C BC #### [facility] [address] [place] [address] Dr. Josef Fraire ER URINE PROFILEon 2 Bilirubin Ql (U) Negative Normal NEGATIVE [facility] Comment on above: Performed By: #### E RUR #### [facility] [address] [place] [address] Dr. Josef Fraire Clarity (U) CLEAR Normal CLEAR [facility] Comment on above: Performed By: #### E RUR #### [facility] [address] [place] [address] Dr. Josef Fraire Color (U) LT. YELLOW Normal YELLOW [facility] Comment on above: Performed By: #### E RUR #### [facility] [address] [place] [address] Dr. Josef HAYDENBarbara A micrscopic examination will be performed if indicated. Normal The [facility] Comment on above: Performed By: #### E RUR #### [facility] [address] [place] [address] Dr. Josef Fraire Glucose Ql (U) Negative Normal NEGATIVE The [facility] Comment on above: Performed By: #### E RUR #### [facility] [address] [place] [address] Dr. Josef Fraire Hemoglobin Ql (U) Negative Normal NEGATIVE [facility] Comment on above: Performed By: #### E RUR #### [facility] [address] [place] [address] Dr. Josef Fraire Ketones Ql (U) Negative Normal NEGATIVE [facility] Comment on above: Performed By: #### E RUR #### [facility] [address] [place] [address] Dr. Josef Fraire LEUKOCYTES Negative Normal NEGATIVE [facility] Comment on above: Performed By: #### E RUR #### [facility] [address] [place] [address] Dr. Josef Fraire Nitrite Ql (U) Negative Normal NEGATIVE [facility] Comment on above: Performed By: #### E RUR #### [facility] [address] [place] [address] Dr. Josef Fraire pH (U) 6.0 [pH] Normal 5-9 [facility] Comment on above: Performed By: #### E RUR #### [facility] [address] [place] [address] Dr. Josef Fraire SPEC GRAVITY <=1.005 Abnormal 1.005-<=1.025 [facility] Comment on above: Performed By: #### E RUR #### [facility] [address] [place] [address] Dr. Josef Fraire UA PROTEIN Negative Normal NEGATIVE/ TRACE The [facility] Comment on above: Performed By: #### E RUR #### [facility] [address] [place] [address] Dr. Josef Fraire UR MICRO IND NOT INDICATED Normal The [facility] Comment on above: Performed By: #### E RUR #### [facility] [address] [place] [address] Dr. Josef Fraire Urobilinogen Qn (U) 0.2 {Vero'U}/dL Normal 0.2 - 1. 0 [facility] Comment on above: Performed By: #### E RUR #### [facility] [address] [place] [address] Dr. Josef Fraire PROF CHEM 8 (BAS METB)on Anion gap [Moles/Vol] 14.6 mmol/L Normal [facility] Comment on above: Performed By: #### L IPID, CMP #### [facility] [address] [place] [address] Dr. Josef Fraire Calcium [Mass/Vol] 9.7 mg/dL Normal 8.5-10.1 [facility] Comment on above: Performed By: #### L IPID, CMP #### [facility] [address] [place] [address] Dr. Josef Fraire Chloride [Moles/Vol] 96 mmol/L Critically low 98-107 [facility] Comment on above: Performed By: #### L IPID, CMP #### [facility] [address] [place] [address] Dr. Josef Fraire CO2 [Moles/Vol] 25.8 mmol/L Normal 21.0-32.0 [facility] Comment on above: Performed By: #### L IPID, CMP #### [facility] [address] [place] [address] Dr. Josef Fraire Creatinine [Mass/Vol] 1.61 mg/dL Critically high 0.55-1.02 [facility] Comment on above: Performed By: #### L IPID, CMP #### [facility] [address] [place] [address] Dr. Josef Fraire EGFR-AF BOTSWANAN 38 mL/min/1.73m2 Critically low >=60 [facility] Comment on above: Performed By: #### L IPID, CMP #### [facility] [address] [place] [address] Dr. Josef Fraire EGFR-NON AF BOTSWANAN 32 mL/min/1.73m2 Critically low >=60 [facility] Comment on above: Performed By: #### L IPID, CMP #### [facility] [address] [place] [address] Dr. Josef Fraire Glucose [Mass/Vol] 119 mg/dL Critically high 74-106 [facility] Comment on above: Performed By: #### L IPID, CMP #### [facility] [address] [place], [place] [id number] Dr. Josef Fraire Potassium [Moles/Vol] 3.4 mmol/L Critically low 3.5-5.1 [facility] Comment on above: Result Comment: SPEC KATHY IS JUST SLIGHTLY HEMOLYZED AND SLIGHTLY LIPEMIC Performed By: #### L IPID, CMP #### [facility] [address] [place] [address] Dr. Josef Fraire Sodium [Moles/Vol] 133 mmol/L Critically low 136-145 [facility] Comment on above: Performed By: #### L IPID, CMP #### [facility] [address] [place] [address] Dr. Josef Fraire Urea nitrogen [Mass/Vol] 22.0 mg/dL Critically high 7.0-18.0 [facility] Comment on above: Performed By: #### L IPID, CMP #### [facility] [address] [place] [address] Dr. Josef Fraire Urea nitrogen/Creatinine [Mass ratio] 13.7 mg/mg Normal [facility] Comment on above: Performed By: #### L IPID, CMP #### [facility] [address] [place] [address] Dr. Josef Fraire TROPONIN, HIGH SENSITIVITYon 01-28-2022 HSTROP 8.3 pg/mL Normal 4.0-51.3 [facility] Comment on above: Result Comment: CUT- OFF POINTS HAVE BEEN ESTABLISHED BASED ON THE FOURTH UNIVERSAL DEFINITIONS OF MYOCARDIAL INFARCTION. THE UPPER REFERENCE LIMIT (URL) OF TROPONIN, DEFINED THE 99TH PERCENTILE OF cTnI DISTRIBUTION IN A REFERENCE POPULATION, HAS BEEN CONFIRMED THE DECISION THRESHOLD FOR CT DIAGNOSIS. Performed By: #### L IPID, CMP #### [facility] [address] [place] [address] Dr. Josef Fraire PROF CHEM 8 (BAS METB)on Anion gap [Moles/Vol] 14.6 mmol/L Normal [facility] Comment on above: Performed By: #### B MP #### [facility] [address] [place] [address] Dr. Josef Fraire Calcium [Mass/Vol] 10.6 mg/dL Critically high 8.5-10.1 [facility] Comment on above: Performed By: #### B MP #### [facility] [address] [place] [address] Dr. Josef Fraire Chloride [Moles/Vol] 97 mmol/L Critically low 98-107 [facility] Comment on above: Performed By: #### B MP #### [facility] [address] [address] [address] Josef Fraire CO2 [Moles/Vol] 29.5 mmol/L Normal 21.0-32.0 [facility] Comment on above: Performed By: #### B MP #### [facility] [address] [place] [address] Dr. Josef Fraire Creatinine [Mass/Vol] 1.34 mg/dL Critically high 0.55-1.02 [facility] Comment on above: Performed By: #### B MP #### [facility] [address] [place] [address] Dr. Josef Fraire EGFR-AF BOTSWANAN 47 mL/min/1.73m2 Critically low >=60 [facility] Comment on above: Performed By: #### B MP #### [facility] [address] [place] [address] Dr. Josef Fraire EGFR-NON AF BOTSWANAN 39 mL/min/1.73m2 Critically low >=60 [facility] Comment on above: Performed By: #### B MP #### [facility] [address] [address] [address] Josef Fraire Glucose [Mass/Vol] 88 mg/dL Normal 74-106 [facility] Comment on above: Performed By: #### B MP #### [facility] [address] [address] [address] Josef Fraire Potassium [Moles/Vol] 4.1 mmol/L Normal 3.5-5.1 [facility] Comment on above: Performed By: #### B MP #### [facility] [address] [address] [address] Josef Fraire Sodium [Moles/Vol] 137 mmol/L Normal 136-145 [facility] Comment on above: Performed By: #### B MP #### [facility] [address] [address] [address] Josef Fraire Urea nitrogen [Mass/Vol] 22.0 mg/dL Critically high 7.0-18.0 [facility] Comment on above: Performed By: #### B MP #### [facility] [address] [address] [address] Josef Fraire Urea nitrogen/Creatinine [Mass ratio] 16.4 mg/mg Normal [facility] Comment on above: Performed By: #### B MP #### [facility] [address] [place] [address] Dr. Josef Fraire PROF CHEM 8 (BAS METB)on Anion gap [Moles/Vol] 9.5 mmol/L Normal [facility] Comment on above: Performed By: #### B MP #### [facility] [address] [place] [address] Dr. Josef Fraire Calcium [Mass/Vol] 9.1 mg/dL Normal 8.5-10.1 [facility] Comment on above: Performed By: #### B MP #### [facility] [address] [place] [address] Dr. Josef Fraire Chloride [Moles/Vol] 96 mmol/L Critically low 98-107 The [facility] Comment on above: Performed By: #### B MP #### [facility] [address] [place] [address] Dr. Josef Fraire CO2 [Moles/Vol] 32.5 mmol/L Critically high 21.0-32.0 The [facility] Comment on above: Performed By: #### B MP #### [facility] [address] [place] [address] Dr. Josef Fraire Creatinine [Mass/Vol] 0.76 mg/dL Normal 0.55-1.02 [facility] Comment on above: Performed By: #### B MP #### [facility] [address] [place] [address] Dr. Josef Fraire EGFR-AF BOTSWANAN >60 Normal >=60 [facility] Comment on above: Performed By: #### B MP #### [facility] [address] [address] [address] Josef Fraire EGFR-NON AF BOTSWANAN >60 Normal >=60 [facility] Comment on above: Performed By: #### B MP #### [facility] [address] [address] [address] Josef Fraire Glucose [Mass/Vol] 95 mg/dL Normal 74-106 [facility] Comment on above: Performed By: #### B MP #### [facility] [address] [address] [address] Josef Fraire Potassium [Moles/Vol] 3.0 mmol/L Critically low 3.5-5.1 [facility] Comment on above: Performed By: #### B MP #### [facility] [address] [address] [address] Josef Fraire Sodium [Moles/Vol] 135 mmol/L Critically low 136-145 [facility] Comment on above: Performed By: #### B MP #### [facility] [address] [address] [address] Josef Fraire Urea nitrogen [Mass/Vol] 9.0 mg/dL Normal 7.0-18.0 [facility] Comment on above: Performed By: #### B MP #### [facility] [address] [address] [address] Josef Fraire Urea nitrogen/Creatinine [Mass ratio] 11.8 mg/mg Normal [facility] Comment on above: Performed By: #### B MP #### [facility] [address] [address] [address] Josef Fraire COVID-19 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 This test has not been [...] is terminated or revoked sooner. PERFORMED BY: [place] [address] PATHOLOGIST ELECTRICITY TRADING ANALYST JOSUÉ LEE M.D. Performed By: #### C OVID 19 [facility] [place] #### [address] COVID-19 Positive/NegativeOr dered By: Gabriel Qiu on 12-21-2021 SARS-CoV-2 (COVID-19) N gene CHRIS+probe Ql (Resp) Negative Negative [facility] Comment on above: Testing for SARS-CoV -2 by RT-PCR This test was developed and its performance characteristics determined by [employer]) and validated at the [facility]. This test has not been [...] terminated or revoked sooner. Basic Metabolic Panelon 07 Calcium [Mass/Vol] 9.7 mg/dL Normal 8.2-10.2 [facility] Comment on above: Result Comment: PERF ORMED BY: [place] [address] PATHOLOGIST ELECTRICITY TRADING ANALYST JOSUÉ LEE M.D. Performed By: #### C BC, BMP #### [facility] [address] [place] [address] [place] Chloride [Moles/Vol] 104 mmol/L Normal 95-114 [facility] Comment on above: Performed By: #### C BC, BMP #### [address] CO2 [Moles/Vol] 26.9 mmol/L Normal 22.0-30.0 [facility] Comment on above: Performed By: #### C BC, BMP #### [address] Creatinine [Mass/Vol] 0.71 mg/dL Normal 0.44-1.03 [facility] Comment on above: Performed By: #### C BC, BMP #### [place] [address] [place] Estimated GFR ( Juliette > 60 [facility] Comment on above: Result Comment: GFR estimated reference range: According to KDOQI guidelines, <60 ml/min/1.73m2 is sufficient to diagnose a patient with chronic kidney disease. Performed By: #### C BC, BMP #### [place] [address] [place] Estimated GFR (Non- Am > 60 Normal [facility] Comment on above: Performed By: #### C BC, BMP #### [place] [id number] [place] Glucose [Mass/Vol] 81 mg/dL Normal 70-100 [facility] Comment on above: Result Comment: Bernie Glucose Reference Range is dependent on time and content of last meal. Glucose of more than 200 mg/dL in a nonstressed, ambulatory subject supports the diagnosis of Diabetes Mellitus. ADA recommended reference range Performed By: #### C BC, BMP #### [facility] [address] Potassium [Moles/Vol] 4.1 mmol/L Normal 3.5-5.1 [facility] Comment on above: Performed By: #### C BC, BMP #### [facility] [address] Sodium [Moles/Vol] 138 mmol/L Normal 136-146 [facility] Comment on above: Performed By: #### C AIDA, BMP #### [facility] [address] Urea nitrogen [Mass/Vol] 7 mg/dL Low 9-23 [facility] Comment on above: Performed By: #### C BC, BMP #### [facility] [address] Basophils Auto (Bld) [#/Vol] Ordered By: Gabriel Qiu on 12-11-2021 Basophils (Bld) [#/Vol] 0.1 10*3/uL 0.0-0.2 [facility] Basophils/100 WBC Auto (Bld) Ordered By: Gabriel Qiu on 12-11-2021 Basophils/100 WBC (Bld) 0.9 % . [facility] Blood hemoglobin measurement (mass/volume)Ordered By: Gabriel Qiu on 12-11-2021 Hemoglobin (Bld) [Mass/Vol] 15.1 g/dL 11.8-15.4 [facility] Blood leukocytes automated c ount (number/volume)Ordered By: Gabriel Qiu on 12-11-2021 WBC (Bld) [#/Vol] 9.0 10*3/uL 4.5-11.0 [facility] Complete Blood Count Auto Di ffon 12-11-2021 Basophils (Bld) [#/Vol] 0.1 10*3/uL Normal 0.0-0.2 [facility] Comment on above: Result Comment: PERF ORMED BY: [place] [address] PATHOLOGIST ELECTRICITY TRADING ANALYST JOSUÉ LEE M.D. Performed By: #### C BC, BMP #### [address] Basophils/100 WBC (Bld) 0.9 % Normal . [facility] Comment on above: Performed By: #### C BC, BMP #### [address] Eosinophils (Bld) [#/Vol] 0.1 10*3/uL Normal 0.0-0.45 [facility] Comment on above: Performed By: #### C BC, BMP #### [address] Eosinophils/100 WBC (Bld) 1.3 % Normal . [facility] Comment on above: Performed By: #### C BC, BMP #### [address] Erythrocyte distribution width (RBC) [Ratio] 14.4 % Normal 11.9-15.3 [facility] Comment on above: Performed By: #### C BC, BMP #### [address] Hematocrit (Bld) [Volume fraction] 45.2 % Normal 34.0-46.4 [facility] Comment on above: Performed By: #### C BC, BMP #### [place] [address] [place] Hemoglobin (Bld) [Mass/Vol] 15.1 g/dL Normal 11.8-15.4 [facility] Comment on above: Performed By: #### C BC, BMP #### [place] [address] [place] Lymphocytes (Bld) [#/Vol] 1.8 10*3/uL Normal 1.00-4.8 [facility] Comment on above: Performed By: #### C BC, BMP #### [place] [address] [place] Lymphocytes/100 WBC (Bld) 19.7 % Normal . [facility] Comment on above: Performed By: #### C BC, BMP #### [facility] [address] MCH (RBC) [Entitic mass] 30.0 pg Normal 24.7-34.3 [facility] Comment on above: Performed By: #### C BC, BMP #### [facility] [address] MCV (RBC) [Entitic vol] 89.4 fL Normal 80-100 [facility] Comment on above: Performed By: #### C BC, BMP #### [facility] [address] Mean Corpuscular HGB Conc 33.5 g/dL Normal 32.0-35.0 [facility] Comment on above: Performed By: #### C BC, BMP #### [facility] [address] [place] [address] [place] Monocytes (Bld) [#/Vol] 0.6 10*3/uL Normal 0.0-0.8 [facility] Comment on above: Performed By: #### C BC, BMP #### [facility] [address] [place] [address] [place] Monocytes/100 WBC (Bld) 6.8 % Normal . [facility] Comment on above: Performed By: #### C BC, BMP #### [facility] [address] [place] [address] [place] Neutrophils (Bld) [#/Vol] 6.4 10*3/uL Normal 1.8-7.7 [facility] Comment on above: Performed By: #### C BC, BMP #### [facility] [address] [place] [address] [place] Neutrophils/100 WBC (Bld) 71.3 % Normal . [facility] Comment on above: Performed By: #### C BC, BMP #### [facility] [address] [place] [address] [place] Nucleated RBC/100 WBC (Bld) [Ratio] 0.0 % Normal 0-0.5 [facility] Comment on above: Performed By: #### C BC, BMP #### [facility] [address] Platelet mean volume (Bld) [Entitic vol] 9.5 fL Normal 6.3-10.7 [facility] Comment on above: Performed By: #### C BC, BMP #### [facility] [address] Platelets (Bld) [#/Vol] 245 10*3/uL Normal 150-450 [facility] Comment on above: Performed By: #### C BC, BMP #### [facility] [address] RBC (Bld) [#/Vol] 5.05 10*6/uL High 3.60-5.00 [facility] Comment on above: Performed By: #### C BC, BMP #### [facility] [address] WBC (Bld) [#/Vol] 9.0 10*3/uL Normal 4.5-11.0 [facility] Comment on above: Performed By: #### C AIDA, BMP #### [facility] [address] Creatinine and Glomerular fi ltration rate.predicted panel (S/P/Bld)Ordered By: Gabriel Qiu on 12-11-2021 Creatinine [Mass/Vol] 0.71 mg/dL 0.44-1.03 [facility] ECG 12 lead ECGon 12-11-2021 ECG 12 lead ECG [facility] [place] [address] [place] [address] Electrocardiograph Report Signed Patient: Cydney Villa MR#: [id number] : 1950 Acct:[id number] Age/Sex: 71 / F ADM Date: 12/11/21 Loc: PS Room: Type: [facility] Attending Dr: Gabriel Qiu DO Ordering Provider: [...] ([id number]) on 12/11/2021 9:19:51 AM Referred By: LAZARUS Electronically Signed By:ALBERTO GRAY MD Transcribed By: MUS Signed By Alberto Gray MD 0919 Normal [facility] Eosinophils Auto (Bld) [#/Vo l]Ordered By: Gabriel Qiu on 12-11-2021 Eosinophils (Bld) [#/Vol] 0.1 10*3/uL 0.0-0.45 [facility] Eosinophils/100 WBC Auto (Bl d)Ordered By: Gabriel Qiu on 12-11-2021 Eosinophils/100 WBC (Bld) 1.3 % . [facility] Erythrocyte distribution wid th Auto (RBC) [Ratio]Ordered By: Gabriel Qiu on 12-11-2021 Erythrocyte distribution width (RBC) [Ratio] 14.4 % 11.9-15.3 [facility] Estimated glomerular filtrat ion rate (GFR) non- AmericanOrdered By: Gabriel Qiu on 12-11-2021 GFR/1.73 sq M.predicted among non-blacks MDRD (S/P/Bld) [Vol rate/Area] > 60 mL/Min [facility] Hematocrit Auto (Bld) [Volum e fraction]Ordered By: Gabriel Qiu on 12-11-2021 Hematocrit (Bld) [Volume fraction] 45.2 % 34.0-46.4 [facility] Laboratory - Hematology and Cell countsOrdered By: Gabriel Qiu on 12-11-2021 Nucleated RBC/100 WBC (Bld) [Ratio] 0.0 % 0-0.5 [facility] Lymphocytes Auto (Bld) [#/Vo l]Ordered By: Gabriel Qiu on 12-11-2021 Lymphocytes (Bld) [#/Vol] 1.8 10*3/uL 1.00-4.8 [facility] Lymphocytes/100 WBC Auto (Bl d)Ordered By: Gabriel Qiu on 12-11-2021 Lymphocytes/100 WBC (Bld) 19.7 % . [facility] MCH Auto (RBC) [Entitic mass ]Ordered By: Gabriel Qiu on 12-11-2021 MCH (RBC) [Entitic mass] 30.0 pg 24.7-34.3 [facility] MCHC Auto (RBC) [Mass/Vol]Or dered By: Gabriel Qiu on 12-11-2021 MCHC (RBC) [Mass/Vol] 33.5 g/dL 32.0-35.0 [facility] MCV Auto (RBC) [Entitic vol] Ordered By: Gabriel Qiu on 12-11-2021 MCV (RBC) [Entitic vol] 89.4 fL 80-100 [facility] Monocytes Auto (Bld) [#/Vol] Ordered By: Gabriel Qiu on 12-11-2021 Monocytes (Bld) [#/Vol] 0.6 10*3/uL 0.0-0.8 [facility] Monocytes/100 WBC Auto (Bld) Ordered By: Gabriel Qiu on 12-11-2021 Monocytes/100 WBC (Bld) 6.8 % . [facility] Neutrophils Auto (Bld) [#/Vo l]Ordered By: Gabriel Qiu on 12-11-2021 Neutrophils (Bld) [#/Vol] 6.4 10*3/uL 1.8-7.7 [facility] Neutrophils/100 WBC Auto (Bl d)Ordered By: Gabriel Qiu on 12-11-2021 Neutrophils/100 WBC (Bld) 71.3 % . [facility] No Panel InformationOrdered By: Gabriel Qiu on 12-11-2021 Estimated GFR () > 60 mL/Min [facility] Comment on above: GFR estimated refere nce range: According to KDOQI guidelines, <60 ml/min/1.73m2 is sufficient to diagnose a patient with chronic kidney disease. Pharmacy Creatinine Clearance (Chem N/A [facility] Platelet mean volume Auto (B ld) [Entitic vol]Ordered By: Gabriel Qiu on 12-11-2021 Platelet mean volume (Bld) [Entitic vol] 9.5 fL 6.3-10.7 [facility] Platelets Auto (Bld) [#/Vol] Ordered By: Gabriel Qiu on 12-11-2021 Platelets (Bld) [#/Vol] 245 10*3/uL 150-450 [facility] RBC Auto (Bld) [#/Vol]Ordere d By: Gabriel Qiu on 12-11-2021 RBC (Bld) [#/Vol] 5.05 10*6/uL 3.60-5.00 [facility] Serum or plasma calcium malcom urement (mass/volume)Ordered By: Gabriel Qiu on 12-11-2021 Calcium [Mass/Vol] 9.7 mg/dL 8.2-10.2 [facility] Serum or plasma chloride andreea surement (moles/volume)Ordered By: Gabriel Qiu on 12-11-2021 Chloride [Moles/Vol] 104 mmol/L 95-114 [facility] Serum or plasma glucose malcom urement (mass/volume)Ordered By: Gabriel Qiu on 12-11-2021 Glucose [Mass/Vol] 81 mg/dL 70-100 [facility] Comment on above: ADA recommended refe rence range Random Glucose Reference Range is dependent on time and content of last meal. Glucose of more than 200 mg/dL in a nonstressed, ambulatory subject supports the diagnosis of Diabetes Mellitus. Serum or plasma potassium me asurement (moles/volume)Ordered By: Gabriel Qiu on 12-11-2021 Potassium [Moles/Vol] 4.1 mmol/L 3.5-5.1 [facility] Serum or plasma sodium measu rement (moles/volume)Ordered By: Gabriel Qiu on 12-11-2021 Sodium [Moles/Vol] 138 mmol/L 136-146 [facility] Serum or plasma total carbon dioxide measurement (moles/volume)Ordered By: Gabriel Qiu on 12-11-2021 CO2 [Moles/Vol] 26.9 mmol/L 22.0-30.0 [facility] Serum or plasma urea nitroge n measurement (mass/volume)Ordered By: Gabriel Qiu on 12-11-2021 Urea nitrogen [Mass/Vol] 7 mg/dL 02-19 [facility] COVID-19 Antigenon 2 COVID-19 Antigen [...] developed and its performance characteristic determined by [employer] and validated at [facility]. This test has not been [...] for SARS Antigen by [facility] PERFORMED BY: [address] [address] PATHOLOGIST ELECTRICITY TRADING ANALYST JOSUÉ LEE M.D. Normal [facility] Comment on above: Performed By: #### C OVID-19 BRITNEY LUJANEG #### [address] [address] [place] COVID-19 SOFIAOrdered By: Ruben Ziegler on 11-03-2021 SARS-CoV+SARS-CoV-2 (COVID-19) Ag IA.rapid Ql (Resp) Negative Negative [facility] Comment on above: This is a duplicate Le SARS Antigen (MARITZA) result to be used for statistical tracking purpose only. No Panel InformationOrdered By: Gume Ziegler on 11-03-2021 SARS Antigen (LFIA) [facility] Le Ag Negativeon 11-04-19 22 Le Ag Negative Negative Normal Negative [facility] Comment on above: Result Comment: This is a duplicate Le SARS Antigen (MARITZA) result to be used for statistical tracking purpose only. PERFORMED BY: [place] [address] PATHOLOGIST ELECTRICITY TRADING ANALYST JOSUÉ LEE M.D. Performed By: #### C OVID-19 LE, SOFIANEG #### [facility] [address] [place] [address] MG MAMM SCREEN 3D TERESA CADon 10-27-2021 MG MAMM SCREEN 3D TERESA CAD Patient: CYDNEY VILLA Exam Date: 10/27/2021 : 1950 Gender:F Ordering : SHAIKH Denise RAMIREZ . Admission #: [id number] Family : Order #: [id number] CLICK HERE TO VIEW EXAM RADIOLOGY REPORT [...] Treatments None Family Cancers None LOCATION: [facility] BREAST COMPOSITION: Scattered areas fibroglandular [...] MD on 10/27/2021 at 14:15 Normal [facility] CBC AUTO DIFFon 10-13-2021 BASO # 0.0 103/ul Normal 0.0-0.1 [facility] Comment on above: Performed By: #### C BC #### [facility] [address] [place] [address] Dr. Josef Fraire Basophils/100 WBC (Bld) 0.5 % Normal 0.2-2.0 [facility] Comment on above: Performed By: #### C BC #### [facility] [address] [place] [address] Dr. Josef Fraire EO # 0.2 103/ul Normal 0.0-0.7 [facility] Comment on above: Performed By: #### C BC #### [facility] [address] [place] [address] Dr. Josef Fraire Eosinophils/100 WBC (Bld) 2.4 % Normal 0.9-7.0 [facility] Comment on above: Performed By: #### C BC #### [facility] [address] [place] [address] Dr. Josef Fraire Erythrocyte distribution width (RBC) [Ratio] 13.9 % Normal 11.0-15.0 [facility] Comment on above: Performed By: #### C BC #### [facility] [address] [place] [address] Dr. Josef Fraire Hematocrit (Bld) [Volume fraction] 44.7 % Normal 36.0-48.0 [facility] Comment on above: Performed By: #### C BC #### [facility] [address] [place] [address] Dr. Josef Fraire Hemoglobin (Bld) [Mass/Vol] 14.4 g/dL Normal 12.0-16.0 [facility] Comment on above: Performed By: #### C BC #### [facility] [address] [place] [address] Dr. Josef Fraire IG # 0.03 10e3/ul Normal 0.00-0.03 [facility] Comment on above: Performed By: #### C BC #### [facility] [address] [place] [address] Dr. Josef Fraire IG % 0.4 % Normal 0.0-0.5 [facility] Comment on above: Performed By: #### C BC #### [facility] [address] [place] [address] Dr. Josef Fraire LYMPH # 2.0 103/ul Normal 1.2-3.8 [facility] Comment on above: Performed By: #### C BC #### [facility] [address] [place] [address] Dr. Josef Fraire Lymphocytes/100 WBC (Bld) 25.1 % Normal 20.5-60.0 [facility] Comment on above: Performed By: #### C BC #### [facility] [address] [place] [address] Dr. Josef Fraire MANUAL DIFF REQ NO Normal [facility] Comment on above: Performed By: #### C BC #### [facility] [address] [place] [address] Dr. Josef Fraire MCH (RBC) [Entitic mass] 29.9 pg Normal 26.7-34.0 [facility] Comment on above: Performed By: #### C BC #### [facility] [address] [place] [address] Dr. Josef Fraire MCHC (RBC) [Mass/Vol] 32.2 g/dL Normal 29.9-35.2 [facility] Comment on above: Performed By: #### C BC #### [facility] [address] [place] [address] Dr. Josef Fraire MCV (RBC) [Entitic vol] 92.7 fL Normal 81.0-99.0 [facility] Comment on above: Performed By: #### C BC #### [facility] [address] [place] [address] Dr. Josef Fraire MONO # 0.5 103/ul Normal 0.3-0.8 [facility] Comment on above: Performed By: #### C BC #### [facility] [address] [place] [address] Dr. Josef Fraire Monocytes/100 WBC (Bld) 6.6 % Normal 1.7-12.0 [facility] Comment on above: Performed By: #### C BC #### [facility] [address] [place] [address] Dr. Josef Fraire NEUT # 5.1 103/ul Normal 1.4-6.5 [facility] Comment on above: Performed By: #### C BC #### [facility] [address] [place] [address] Dr. Josef Fraire Neutrophils/100 WBC (Bld) 65.0 % Normal 43.0-75.0 [facility] Comment on above: Performed By: #### C BC #### [facility] [address] [place] [address] Dr. Josef Fraire Platelet mean volume (Bld) [Entitic vol] 11.9 fL Normal 9.5-13.5 [facility] Comment on above: Performed By: #### C BC #### [facility] [address] [place] [address] Dr. Josef Fraire PLT 217 103/ul Normal 150-450 [facility] Comment on above: Performed By: #### C BC #### [facility] [address] [place] [address] Dr. Josef Fraire RBC 4.82 106/ul Normal 4.20-5.40 [facility] Comment on above: Performed By: #### C BC #### [facility] [address] [place] [address] Dr. Josef Fraire WBC 7.9 103/ul Normal 4.0-11.0 [facility] Comment on above: Performed By: #### C BC #### [facility] [address] [place] [address] Dr. Josef Fraire FERRITINon 10-13-2021 Ferritin [Mass/Vol] 56.0 ng/mL Normal 8.0-252.0 [facility] Comment on above: Performed By: #### F ERR #### [facility] [address] [address] [address] Josef Fraire LIPID PROFILEon 10-13-2021 CHOL-HDL RATIO NORM SEE BELOW Normal [facility] Comment on above: Result Comment: 3.3 - 4.4 LOW RISK 4.4 - 7.1 AVERAGE RISK 7.1 - 11.0 MODERATE RISK >11.0 HIGH RISK Performed By: #### L IPID, CMP #### [facility] [address] [address] [address] Josef Fraire Cholesterol [Mass/Vol] 156 mg/dL Normal <=200 [facility] Comment on above: Performed By: #### L IPID, CMP #### [facility] [address] [address] [address] Josef Fraire Cholesterol in HDL [Mass/Vol] 53 mg/dL Normal 40-60 [facility] Comment on above: Performed By: #### L IPID, CMP #### [facility] [address] [address] [address] Josef Fraire Cholesterol in LDL [Mass/Vol] 85.0 mg/dL Normal [facility] Comment on above: Performed By: #### L IPID, CMP #### [facility] [address] [address] [address] Josef Fraire Cholesterol.total/Chol esterol in HDL [Mass ratio] 2.9 {ratio} Normal [facility] Comment on above: Performed By: #### L IPID, CMP #### [facility] [address] [address] [address] Josef Fraire HDL NORMAL > or = 60 mg/dl - LO W CARDIOVASCULAR RISK <40 mg/dl - HIGH CARDIOVASCULAR RISK Normal [facility] Comment on above: Performed By: #### L IPID, CMP #### [facility] [address] [address] [address] Josef Fraire LDL CALC NORMAL SEE BELOW Normal [facility] Comment on above: Result Comment: <100 mg/dl OPTIMAL 100 - 129 mg/dl NEAR OR ABOVE OPTIMAL 130 - 159 mg/dl BORDERLINE HIGH 160 - 189 mg/dl HIGH >190 mg/dl VERY HIGH Performed By: #### L IPID, CMP #### [facility] [address] [place] [address] Dr. Josef Fraire Triglyceride [Mass/Vol] 90 mg/dL Normal <=150 [facility] Comment on above: Performed By: #### L IPID, CMP #### [facility] [address] [place] [address] Dr. Josef Fraire VLDL CALC 18.0 mg/dL Normal [facility] Comment on above: Performed By: #### L IPID, CMP #### [facility] [address] [place] [address] Dr. Joesf Fraire PROF 14(COMP METB)on 022 Albumin [Mass/Vol] 3.5 g/dL Normal 3.4-5.0 [facility] Comment on above: Performed By: #### L IPID, CMP #### [facility] [address] [place] [address] Dr. Josef Fraire Albumin/Globulin [Mass ratio] 1.0 {ratio} Normal [facility] Comment on above: Performed By: #### L IPID, CMP #### [facility] [address] [place] [address] Dr. Josef Fraire ALP [Catalytic activity/Vol] 90 U/L Normal 46-116 [facility] Comment on above: Performed By: #### L IPID, CMP #### [facility] [address] [place] [address] Dr. Josef Fraire ALT [Catalytic activity/Vol] 25 U/L Normal 14-59 [facility] Comment on above: Performed By: #### L IPID, CMP #### [facility] [address] [place] [address] Dr. Josef Fraire Anion gap [Moles/Vol] 9.0 mmol/L Normal [facility] Comment on above: Performed By: #### L IPID, CMP #### [facility] [address] [place] [address] Dr. Josef Fraire AST [Catalytic activity/Vol] 17 U/L Normal 15-37 [facility] Comment on above: Performed By: #### L IPID, CMP #### [facility] [address] [place] [address] Dr. Josef Fraire Bilirubin [Mass/Vol] 0.4 mg/dL Normal 0.2-1.0 [facility] Comment on above: Performed By: #### L IPID, CMP #### [facility] [address] [place] [address] Dr. Josef Fraire Calcium [Mass/Vol] 9.1 mg/dL Normal 8.5-10.1 [facility] Comment on above: Performed By: #### L IPID, CMP #### [facility] [address] [place] [address] Dr. Josef Fraire Chloride [Moles/Vol] 105 mmol/L Normal 98-107 [facility] Comment on above: Performed By: #### L IPID, CMP #### [facility] [address] [place] [address] Dr. Josef Fraire CO2 [Moles/Vol] 27.9 mmol/L Normal 21.0-32.0 [facility] Comment on above: Performed By: #### L IPID, CMP #### [facility] [address] [place] [address] Dr. Josef Fraire Creatinine [Mass/Vol] 0.78 mg/dL Normal 0.55-1.02 [facility] Comment on above: Performed By: #### L IPID, CMP #### [facility] [address] [place] [address] Dr. Josef Fraire EGFR-AF BOTSWANAN >60 Normal >=60 [facility] Comment on above: Performed By: #### L IPID, CMP #### [facility] [address] [place] [address] Dr. Josef Fraire EGFR-NON AF BOTSWANAN >60 Normal >=60 [facility] Comment on above: Performed By: #### L IPID, CMP #### [facility] [address] [place] [address] Dr. Josef Fraire Globulin (S) [Mass/Vol] 3.5 g/dL Normal [facility] Comment on above: Performed By: #### L IPID, CMP #### [facility] [address] [address] [address] Josef Fraire Glucose [Mass/Vol] 89 mg/dL Normal 74-106 [facility] Comment on above: Performed By: #### L IPID, CMP #### [facility] [address] [address] [address] Josef Fraire Potassium [Moles/Vol] 4.3 mmol/L Normal 3.5-5.1 [facility] Comment on above: Performed By: #### L IPID, CMP #### [facility] [address] [place] [address] Dr. Josef Fraire Protein [Mass/Vol] 7.0 g/dL Normal 6.4-8.2 [facility] Comment on above: Performed By: #### L IPID, CMP #### [facility] [address] [place] [address] Dr. Josef Fraire Sodium [Moles/Vol] 140 mmol/L Normal 136-145 [facility] Comment on above: Performed By: #### L IPID, CMP #### [facility] [address] [place] [address] Dr. Josef Fraire Urea nitrogen [Mass/Vol] 8.0 mg/dL Normal 7.0-18.0 [facility] Comment on above: Performed By: #### L IPID, CMP #### [facility] [address] [place] [address] Dr. Josef Fraire Urea nitrogen/Creatinine [Mass ratio] 10.2 mg/mg Normal [facility] Comment on above: Performed By: #### L IPID, CMP #### [facility] [address] [place] [address] Dr. Josef Fraire Vital Signs Date Time Vital Sign Value Performing Clinician Facility 07-11-2023 12:38-0500 Body height 157.5 cm Jolly Smith MD Work Phone: [facility] 07-11-2023 12:38-0500 Body mass index (BMI) [Ratio] 25.97 kg/m2 Jolly Smith MD Work Phone: [facility] 07-11-2023 12:38-0500 Body weight 64.41 kg Jolly Smith MD Work Phone: [facility] 07-11-2023 12:38-0500 Diastolic blood pressure 76 mm[Hg] Jolly Smith MD Work Phone: [facility] 07-11-2023 12:38-0500 Heart rate 60 /min Jolly Smith MD Work Phone: [facility] 07-11-2023 12:38-0500 Systolic blood pressure 124 mm[Hg] Jolly Smith MD Work Phone: [facility] 06-23-2023 11:39-0500 Diastolic blood pressure 72 mm[Hg] Jolly Smith MD Work Phone: [facility] 06-23-2023 11:39-0500 Systolic blood pressure 110 mm[Hg] Jolly Smith MD Work Phone: [facility] 06-23-2023 10:49-0500 Heart rate 64 /min Jolly Smith MD Work Phone: [facility] 06-23-2023 10:48-0500 Body height 157.5 cm Jolly Smith MD Work Phone: [facility] 06-23-2023 10:48-0500 Body mass index (BMI) [Ratio] 26.34 kg/m2 Jolly Smith MD Work Phone: [facility] 06-23-2023 10:48-0500 Body weight 65.32 kg Jolly Smith MD Work Phone: [facility] 11-22-2022 09:10-0400 Body height 160.02 cm Gracia Woodruff Other [facility] Other 11-22-2022 09:10-0400 Body mass index (BMI) [Ratio] 25.98 kg/m2 Gracia Woodruff Other [facility] Other 11-22-2022 09:10-0400 Body temperature 97.8 [degF] Gracia Woodruff Other [facility] Other 11-22-2022 09:10-0400 Body weight 66.54 kg Gracia Woodruff Other [facility] Other 11-22-2022 09:10-0400 Diastolic blood pressure 56 mm[Hg] Gracia Woodruff Other [facility] Other 11-22-2022 09:10-0400 Respiratory rate 18 /min Gracia Woodruff Other [facility] Other 11-22-2022 09:10-0400 SaO2% (BldA) [Mass fraction] 95 % Gracia Woodruff Other [facility] Other 11-22-2022 09:10-0400 Systolic blood pressure 148 mm[Hg] Gracia Woodruff Other [facility] Other 12-23-2021 14:20-0400 Diastolic blood pressure 64 mm[Hg] DO Gume Hykes Work Phone: [facility] 12-23-2021 14:20-0400 Heart rate 71 /min DO Gume Hykes Work Phone: [facility] 12-23-2021 14:20-0400 Respiratory rate 16 /min DO Gume Hykes Work Phone: [facility] 12-23-2021 14:20-0400 SaO2% (BldA) [Mass fraction] 96 % DO Gume Hykes Work Phone: [facility] [facility] 12-23-2021 14:20-0400 Systolic blood pressure 122 mm[Hg] DO Gume Hykes Work Phone: [facility] 12-23-2021 12:12-0400 Body height 157.48 cm DO Gume Hykes Work Phone: [facility] 12-23-2021 12:12-0400 Body mass index (BMI) [Ratio] 27 kg/m2 DO Gume Hykes Work Phone: [facility] 12-23-2021 12:12-0400 Body weight 67 kg DO Gume Hykes Work Phone: [facility] 12-23-2021 11:11-0400 Body temperature 97.9 [degF] DO Gume Hykes Work Phone: [facility] 11-05-2021 13:50-0400 Diastolic blood pressure 64 mm[Hg] DO Gume Hykes Work Phone: [facility] 11-05-2021 13:50-0400 Heart rate 77 /min DO Gume Hykes Work Phone: [facility] 11-05-2021 13:50-0400 Respiratory rate 16 /min DO Gume Hykes Work Phone: [facility] 11-05-2021 13:50-0400 SaO2% (BldA) [Mass fraction] 97 % DO Gume Hykes Work Phone: [facility] 11-05-2021 13:50-0400 Systolic blood pressure 118 mm[Hg] DO Gume Hykes Work Phone: [facility] 11-05-2021 12:49-0400 Body height 160.02 cm DO Gume Hykes Work Phone: [facility] 11-05-2021 12:49-0400 Body mass index (BMI) [Ratio] 25.3 kg/m2 DO Gume Ziegler Work Phone: [facility] 11-05-2021 12:49-0400 Body temperature 98.2 [degF] DO Gume Ziegler Work Phone: [facility] 11-05-2021 12:49-0400 Body weight 64.86 kg DO Gume Ziegler Work Phone: [facility] 05-06-2021 10:45-0500 Body height 160.02 cm Dede Calvey Other [facility] Other 05-06-2021 10:45-0500 Body mass index (BMI) [Ratio] 25.74 kg/m2 Dede Calvey Other [facility] Other 05-06-2021 10:45-0500 Body weight 65.91 kg Dede Calvey Other [facility] Other 04-08-2021 15:15-0500 Body height 160.02 cm Dede Calvey Other [facility] Other 04-08-2021 15:15-0500 Body mass index (BMI) [Ratio] 25.33 kg/m2 Dede Calvey Other [facility] Other 04-08-2021 15:15-0500 Body weight 64.86 kg Dede Calvey Other [facility] Other Encounters Encounter Date Encounter Type Care Provider Facility Start: 09-27-2023 End: 09-27-2023 ambulatory SHAIKH ASHLEY Not Available Start: 07-14-2023 Clinisync Result Encounter Generic External Data Provider [facility] Unsolicited Start: 07-14-2023 Clinisync Result Encounter Generic External Data Provider [facility] External Department Unsolicited Start: 07-11-2023 End: 07-11-2023 ambulatory [facility] Start: 07-11-2023 End: 07-11-2023 Office outpatient visit 25 minutes Jolly Smith MD Work Phone: [facility] Comment on above: 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); Atrial 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, unspecified type (CMS/HCC); Gastroesophageal reflux disease, unspecified whether esophagitis present; Paroxysmal atrial 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 (CMS/HCC); Primary hypertension; Mixed hyperlipidemia; Hypercoagulable state due to 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 (CMS/HCC); Current every day smoker; Encounter to discuss test results Start: 07-07-2023 End: 07-08-2023 ambulatory [facility] Start: 07-07-2023 End: 07-07-2023 Subsequent hospital visit by physician Florencia Cordero [place] [facility] Start: 06-29-2023 End: 06-29-2023 ambulatory SHAIKH ASHLEY Not Available Start: 06-23-2023 End: 06-23-2023 ambulatory [facility] Start: 06-23-2023 End: 06-23-2023 Office outpatient new 45 minutes Jolly Smith MD Work Phone: [facility] Comment on above: Atrial 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, unspecified type (CMS/HCC); Current every day smoker; Gastroesophageal reflux disease, unspecified whether esophagitis present; Hypercoagulable state due to 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 (CMS/HCC); shelter current use of anticoagulant therapy; Hyperlipidemia, unspecified hyperlipidemia type; Chest pain, unspecified type; Primary hypertension; Paroxysmal atrial 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 (CMS/HCC) Start: 06-01-2023 End: 06-01-2023 ambulatory SHAIKH ASHLEY Not Available Start: 05-17-2023 End: 05-17-2023 ambulatory SHAIKH ASHLEY Not Available Start: 05-17-2023 Patient encounter procedure Generic Provider [facility] Start: 11-22-2022 End: 11-22-2022 ambulatory Gracia Woodruff Other [facility] Other Start: 11-22-2022 Office outpatient vi sit 15 minutes Gracia Woodruff [facility] Start: 09-13-2022 ambulatory Facility:[facility] Ke[facility] Start: 04-07-2022 End: 04-08-2022 ambulatory SHAIKH Erika VUONGD Facility:[facility] Start: 01-28-2022 End: 01-28-[address] YORDAN BAÑUELOS Facility:[facility] Start: 01-27-2022 End: 01-28-2022 ambulatory ROONEY H FAWWAD Facility:[facility] Start: 01-18-2022 End: 01-19-2022 ambulatory ROONEY H FANelsonWAD Facility:[facility] Start: 12-23-2021 End: 12-23-2021 ambulatory Fanelsonwad Facility:[facility] Start: 12-23-2021 End: 12-23-2021 Admission to same day surgery center DO Gume Ziegler Work Phone: [facility] [place] Start: 12-21-2021 End: 12-21-2021 ambulatory Shaikh Janeed Facility:[facility] Start: 12-21-2021 End: 12-21-2021 Patient encounter procedure DO Gume Ziegler Work Phone: [facility] Start: 12-11-2021 End: 12-11-2021 ambulatory Shaikh Janeed Facility:[facility] Start: 12-11-2021 End: 12-11-2021 Patient encounter procedure DO Gume Ziegler Work Phone: [facility] Start: 12-09-2021 End: 12-09-2021 ambulatory Gume Ziegler Other [facility] Other Start: 12-09-2021 Telephone encounter Gume Ziegler [facility] Start: 11-27-2021 End: 11-27-2021 ambulatory Gume Ziegler Other [facility] Other Start: 11-27-2021 Telephone encounter Gume Ziegler [facility] Start: 11-09-2021 End: 11-09-2021 ambulatory Gume Ziegler Other [facility] Other Start: 11-09-2021 Telephone encounter Gume Ziegler [facility] Start: 11-05-2021 End: 11-05-2021 ambulatory Gume Ziegler Facility:[facility] Start: 11-05-2021 End: 11-05-2021 Admission to same day surgery center DO Gume Ziegler Work Phone: [facility] Start: 11-03-2021 End: 11-03-2021 ambulatory Gume Ziegler Facility:[facility] Start: 11-03-2021 End: 11-03-2021 Patient encounter procedure DO Gume Ziegler Work Phone: [facility] Start: 10-28-2021 End: 10-28-2021 ambulatory Gume Ziegler Other [facility] Other Start: 10-28-2021 Telephone encounter Gume DE [facility]ANTI[facility] Start: 10-27-2021 End: 10-28-2021 ambulatory SHAIKH Erika VUONGD Facility:[facility] Start: 10-13-2021 End: 10-14-2021 ambulatory ROONEY H FANelsonWAD Facility:[facility] Start: 05-06-2021 End: 05-06-2021 ambulatory Dede Garcia Other [facility] Other Start: 05-06-2021 Office outpatient vi sit 10 minutes Dede Garcia [facility] Start: 04-14-2021 End: 04-14-2021 ambulatory Jaime Paulino Other [facility] Other Start: 04-14-2021 Telephone encounter Jaime Paulino [facility] Start: 04-08-2021 End: 04-08-2021 ambulatory Dede Garcia Other [facility] Other Start: 04-08-2021 Office outpatient vi sit 15 minutes Dede Garcia [facility] Start: 03-11-2021 Office outpatient vi sit 15 minutes Dede Garcia [facility] Procedures Date Procedure Procedure Detail Performing Clinician Start: 07-14-2023 ALL CBC WITH AUTO DIFF Generic External Data Provider Start: 07-11-2023 FOLLOW UP IN CARDIOLOGY JOLYL LLOYD Start: 07-07-2023 NUCLEAR STRESS TEST DOREEN SMITH Start: 07-07-2023 Cv strs tst xers&/or rx cont ecg trcg only Jolly Smith MD Work Phone: Start: 06-23-2023 CBC panel - Blood by Automated count JOLLY RENNERAN Start: 06-23-2023 Comprehensive metabo lic 2000 panel - Serum or Plasma JOLLY RENNERAN Start: 06-23-2023 Lipid panel JOLLY MARIE Start: 06-23-2023 Thyrotropin [Units/v olume] in Serum or Plasma JOLLY RENNERAN Start: 06-23-2023 THYROXINE, FREE JOLLY SMITH Start: 06-23-2023 TRIIODOTHYRONINE, TOTAL JOLLY SMITH Start: 06-23-2023 ECG 12-LEAD JOLLY MARIE Start: 06-23-2023 Ecg routine ecg w/le ast 12 lds w/i&r Jolly Smith MD Work Phone: Start: 01-28-2023 Mammography Generic Pr ovider Start: 12-23-2021 Hemorrhoidectomy DO Wes Ziegler Work Phone: Start: 11-05-2021 Diagnostic endoscopi c examination on colon DO Gume Ziegler Work Phone: Start: 11-02-2021 Colonoscopy Generic Pr ovider SARS Antigen (LFIA) DO Gume Ziegler Work Phone: Plan of Treatment Date Care Activity Detail Author Start: 11-03-2031 Screening for malign ant neoplasm of colon [facility] Start: 08-29-2031 DTaP/Tdap/Td Vaccine s (2 - Td or Tdap) DTaP/Tdap/Td Vaccines (2 - Td or Tdap) [facility] Start: 07-19-2024 End: 07-19-2024 Patient encounter procedure 07/19/2024 9:30 AM EST Office Visit [address] [place] [address] Jolly Smith MD [address] [facility] [address] [place] [address] [facility] Start: 05-17-2024 Medicare Annual Well ness (AWV) Medicare Annual Wellness (AWV) [facility] Start: 01-29-2024 Screening for malign ant neoplasm of breast Mammogram [facility] Start: 01-09-2024 End: 01-09-2024 Patient encounter procedure 01/09/2024 8:00 AM EDT Office Visit [address] [place] [address] Jessica Rincon, [employer]SP[employer] [address] [facility] [address] [place] [address] [facility] Start: 09-27-2023 End: 09-27-2023 Patient encounter procedure 09/27/2023 9:15 AM EDT Office Visit [facility] [address] [place] [address] Shaikh Ramirez MD [address] [place] [address] [facility] Start: 07-11-2023 End: 07-11-2024 CBC panel - Blood by Automated count CBC Lab Routine Atrial 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, unspecified type (CMS/HCC) Primary hypertension Expected: 07/11/2023 (Approximate), Expires: 07/11/2024 [facility] Service Area Work Phone: Comment on above: Expected: 07/11/2023 (Approximate), Expires: 07/11/2024 Start: 07-11-2023 End: 07-11-2024 Comprehensive metabolic 2000 panel - Serum or Plasma Comprehensive Metabolic Panel Lab Routine Atrial 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, unspecified type (CMS/HCC) Primary hypertension Expected: 07/11/2023 (Approximate), Expires: 07/11/2024 [facility] Work Phone: Comment on above: Expected: 07/11/2023 (Approximate), Expires: 07/11/2024 Start: 07-11-2023 End: 07-11-2024 Lipid 1996 panel - Serum or Plasma Lipid Panel Lab Routine Mixed hyperlipidemia Expected: 07/11/2023 (Approximate), Expires: 07/11/2024 [facility] Work Phone: Comment on above: Expected: 07/11/2023 (Approximate), Expires: 07/11/2024 Start: 07-11-2023 End: 07-11-2023 Patient encounter procedure 07/11/2023 12:30 PM EST Office Visit [facility] [address] [place] [address] [address] [place] [address] Jolly Smith MD [address] [place] [address] [address] [place] [address] [facility] Start: 07-07-2023 End: 07-07-2023 Patient encounter procedure 07/07/2023 2:15 PM EST Appointment [facility] [address] [facility] [address] [place] [id number] [facility] Start: 07-07-2023 End: 07-07-2023 Patient encounter procedure [facility] Start: 06-23-2023 End: 06-23-2024 CBC panel - Blood by Automated count CBC Lab Routine Hyperlipidemia, unspecified hyperlipidemia type Chest pain, unspecified type Primary hypertension Paroxysmal atrial 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 (CMS/HCC) Expected: 06/23/2023 (Approximate), Expires: 06/23/2024 [facility] Work Phone: Comment on above: Expected: 06/23/2023 (Approximate), Expires: 06/23/2024 Start: 06-23-2023 End: 06-23-2024 Comprehensive metabolic 2000 panel - Serum or Plasma Comprehensive Metabolic Panel Lab Routine Hyperlipidemia, unspecified hyperlipidemia type Chest pain, unspecified type Primary hypertension Paroxysmal atrial 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 (CMS/HCC) Expected: 06/23/2023 (Approximate), Expires: 06/23/2024 [facility] Work Phone: Comment on above: Expected: 06/23/2023 (Approximate), Expires: 06/23/2024 Start: 06-23-2023 End: 06-23-2024 Lipid 1996 panel - Serum or Plasma Lipid Panel Lab Routine Hyperlipidemia, unspecified hyperlipidemia type Chest pain, unspecified type Primary hypertension Paroxysmal atrial 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 (CMS/HCC) Expected: 06/23/2023 (Approximate), Expires: 06/23/2024 [facility] Work Phone: Comment on above: Expected: 06/23/2023 (Approximate), Expires: 06/23/2024 Start: 06-23-2023 End: 06-23-2025 NM Heart Perfusion W stress and W radionuclide IV Nuclear Stress Test Cardiac Nuclear Medicine Routine Hypercoagulable state due to 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 (CMS/HCC) shelter current use of anticoagulant therapy Hyperlipidemia, unspecified hyperlipidemia type Chest pain, unspecified type Primary hypertension Paroxysmal atrial 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 (CMS/HCC) Expected: 06/23/2023 (Approximate), Expires: 06/23/2025 [facility] Service Area Work Phone: Comment on above: Expected: 06/23/2023 (Approximate), Expires: 06/23/2025 Start: 06-23-2023 End: 06-23-2024 Thyrotropin [Units/volume] in Serum or Plasma Thyroid Stimulating Hormone Lab Routine Hyperlipidemia, unspecified hyperlipidemia type Chest pain, unspecified type Primary hypertension Paroxysmal atrial 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 (CMS/HCC) Expected: 06/23/2023 (Approximate), Expires: 06/23/2024 [facility] Work Phone: Comment on above: Expected: 06/23/2023 (Approximate), Expires: 06/23/2024 Start: 06-23-2023 End: 06-23-2024 Thyroxine (T4) free [Mass/volume] in Serum or Plasma Thyroxine, Free Lab Routine Hyperlipidemia, unspecified hyperlipidemia type Chest pain, unspecified type Primary hypertension Paroxysmal atrial 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 (CMS/HCC) Expected: 06/23/2023 (Approximate), Expires: 06/23/2024 [facility] Work Phone: Comment on above: Expected: 06/23/2023 (Approximate), Expires: 06/23/2024 Start: 06-23-2023 End: 06-23-2024 Triiodothyronine (T3) [Mass/volume] in Serum or Plasma Triiodothyronine, Total Lab Routine Hyperlipidemia, unspecified hyperlipidemia type Chest pain, unspecified type Primary hypertension Paroxysmal atrial 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 (CMS/HCC) Expected: 06/23/2023 (Approximate), Expires: 06/23/2024 [facility] Work Phone: Comment on above: Expected: 06/23/2023 (Approximate), Expires: 06/23/2024 Start: 01-28-2023 COVID-19 Vaccine () COVID-19 Vaccine ( season) [facility] Start: 12-23-2021 [facility] Work Phone: Start: 12-23-2021 [facility] Work Phone: Start: 11-05-2021 [facility] Work Phone: Start: 01-06-2020 Pneumococcal Vaccine : 65+ Years (2 - PPSV23 or PCV20) Pneumococcal Vaccine: 65+ Years (2 - PPSV23 or PCV20) [facility] Start: 1991 Screening for malign ant neoplasm of breast Mammogram [facility] Start: 09-10-1969 Diabetes mellitus screening Diabetes Screening [facility] Start: 09-10-1969 Hepatitis C screening Hepatitis C Sc reemartita [facility] Start: 1950 Lipid panel Lipid Panel [facility] Start: 1950 Medicare Annual Well ness Visit Medicare Annual Wellness Visit (AWV) [facility] Start: 1950 Screening for malign ant neoplasm of colon [facility] Start: 1950 Screening for osteoporosis Bone Density Scan [facility] Patient Education Hemorrhoids Diverticulosis Dicyclomine [facility] Work Phone: Immunizations Immunization Date Immunization Notes Care Provider Cristiane smith 02-09-2023 Influenza, Seasonal, Quadrivalent, Adjuvanted Generic Provider [facility] 02-08-2022 Influenza, High-dose Seasonal, Quadrivalent, Preservative Free Generic Provider [facility] 12-15-2021 zoster vaccine recombinant Generic Provider [facility] 10-15-2021 zoster vaccine recombinant Generic [facility] 08-28-2021 COVID-19 mRNA-1273 (Moderna) DO Gume Ziegler Work Phone: [facility] 08-28-2021 tetanus toxoid, reduced diphtheria toxoid, and acellular pertussis vaccine, adsorbed Generic Provider [facility] 04-22-2021 COVID-19 mRNA-1273 (Moderna) DO Gume Ziegler Work Phone: [facility] 03-11-2021 Kenalog -40 mg Dede Calve y Other [facility] Other 02-10-2021 Influenza, High-dose Seasonal, Quadrivalent, Preservative Free Generic Provider [facility] 09-25-2020 COVID-19 mRNA-1273 (Moderna) DO Gume Ziegler Work Phone: [facility] 08-28-2020 COVID-19 mRNA-1273 (Moderna) DO Gume Ziegler Work Phone: [facility] 02-22-2020 influenza, high dose seasonal, preservative-free Generic Provider [facility] 12-31-2019 Kenalog -40 mg Dede Calve y Other [facility] Other 11-11-2019 pneumococcal conjuga te vaccine, 13 valent Generic Provider [facility] 04-23-2019 Kenalog -40 mg Dede Calve y Other [facility] Other 02-24-2017 pneumococcal conjuga te vaccine, 13 valent Generic Provider [facility] Payers Date Payer Category Payer Unknown [id number] 2021 Self-pay [id number] 2021 Medicare [id number] 1959 Medicare [id number] 2. [id number] 1950 Unknown [id number] 2.16.84 0.1.416963.3.579.2.593 1950 Unknown [id number] 2.16.84 0.1.722073.3.579.2.593 1950 Unknown [id number] 2.16.84 0.1.014152.3.579.2.593 1951 Unknown [id number] 2.16.84 0.1.486488.3.579.2.593 1951 Unknown [id number] 2.16.84 0.1.252283.3.579.2.593 1950 Unknown [id number] 2.16.84 0.1.871311.3.579.2.593 1951 Unknown [id number] 2.16.84 0.1.617624.3.579.2.1246 1951 Unknown [id number] 2.16.84 0.1.401173.3.579.2.1246 1951 Unknown [id number] 2.16.84 0.1.506948.3.579.2.1246 1951 Unknown [id number] 2.16.84 0.1.029676.3.579.2.1246 1951 Unknown [id number] 2.16.84 0.1.486510.3.579.2.1246 1951 Unknown [id number] 2.16.8 40.1.629835.3.579.2.1244 1951 Unknown [id number] 2.16.8 40.1.295283.3.579.2.1244 1951 Unknown [id number] 2.16.84 0.1.667135.3.579.2.1259 1951 Unknown [id number] 2.16.84 0.1.022391.3.579.2.1259 1951 Unknown [id number] 2.16.840 .1.904324.3.579.2.1259 1950 Unknown [id number] 2.16.840 .1.842972.3.579.2.1259 Medicare [id number] 2.1 6.840.1.791787.19 Unknown [id number] 2. 16.840.1.092802.19 Unknown [id number] 2.16.8 40.1.906943.3.579.2.531 Unknown [id number] 2.16.8 40.1.455241.3.579.2.531 Unknown [id number] 2.16.8 40.1.239776.3.579.2.531 Unknown [id number] 2.16.8 40.1.291311.3.579.2.531 Unknown [id number] 2.16.8 40.1.132451.3.579.2.531 Social History Date Type Detail Facility Unknown if ever smoked [facility] Other Start: 06-23-2023 End: 06-29-2023 Sex Assigned At [facility] Other Start: 12-23-2021 [facility] Start: 1950 Sex Assigned At Female F [facility] Start: 06-23-2023 [facility] History of tobacco use Cigarette Smoker [facility] Work Phone: Start: 06-23-2023 End: 06-29-2023 Cigarettes smoked current (pack per day) - Reported 0.3 [facility] Work Phone: Start: 06-01-2023 End: 06-23-2023 Tobacco use and exposure Smokeless tobacco non-user [facility] Work Phone: Start: 06-23-2023 End: 06-29-2023 Alcohol intake Lifetime non-drinker (finding) [facility] Work Phone: Start: 1950 Sex Assigned At Not on file [facility] Work Phone: Start: 06-13-2023 End: 07-11-2023 Exposure to SARS-CoV-2 (event) Not sure [facility] Start: 06-01-2023 Tobacco smoking stat [facility] Occasional tobacco smoker [facility] Start: 04-29-2023 Alcohol Comment caffeine: soda /pop , coffee [facility] Goals Date Patient Goal Desired Activity /State Clinical Notes 03-11-2021 to 07-11-2023 Jolly Smith MD - 07/11/2023 12:30 PM ESTPatient InstructionsJolly Smith MD - 06/23/2023 11:15 AM ESTPatient [...] redirect to the Timeline version of the [employer] SmartLink. Wt Readings from Last 3 Encounters: [...] results 07/11/2023 Current every day smoker 06/23/2023 shelter current use of anticoagulant therapy 06/23/2023 Primary hypertension 06/23/2023 GERD (gastroesophageal reflux disease) 06/23/2023 Chest pain 06/23/2023 Hyperlipidemia 06/23/2023 Hypercoagulability due to atrial 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 (CMS/HCC) 06/23/2023 Paroxysmal atrial 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 (CMS/HCC) 06/23/2023 Assessment: 1. shelter current use of anticoagulant therapy 2. Atrial [...] discussion and plan. documented in this encounter [facility] Work Phone: 07-11-2023 Instructions Merry Wilkerson [...] of your visit. documented in this encounter [facility] Work Phone: 06-23-2023 History of Present illness Narrative Referred by for Establish Care and Atrial Fibrillation (Onset new afib) History Of Present Illness: Cydney Villa is a 72 y.o. female presenting with history of atrial 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. Prior records reviewed, patient presented to Dr. Correa with palpitations. A Holter showed 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. [id number] score 3 placed on metoprolol and Eliquis [...] 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 (CMS/HCC) - Nuclear Stress Test; Future shelter current use of anticoagulant therapy - Nuclear [...] probably not pathologic, followed by primary care [id number] score 3 Postmenopausal female with several risk [...] you for allowing us to participate in Cydney's care, please do not hesitate to call if further questions arise, sincerely, Jolly Smith MD Provider Attestation - Scribe documentation All medical record entries made by the Scribe were at my direction and personally dictated by me. I have reviewed the chart and agree that the record accurately reflects my personal performance of the history, physical exam, discussion and plan. ANNA SALSA LPN Scribe Attestation By signing my name below, I, Anna Santacruz LPN , Scribe attest that this documentation has been prepared under the direction and in the presence of Jolly Smith MD. documented in this encounter [facility] Work Phone: 06-23-2023 Instructions Alex Hawley [...] in office today documented in this encounter [facility] Work Phone: 11-22-2022 Evaluation note Encounter [...] sooner if significantly worsening or changing appearance. 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) [facility] Other Evaluation noteNo InformationNort Givey Other Evaluation note* Diagnosis Onset Date Resolution Status Abdominal pain acute Blood in stool acute [facility] Work Phone: Evaluation note* Diagnosis Atrial 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, unspecified type (CMS/HCC) Current every day smoker Gastroesophageal reflux disease, unspecified whether esophagitis present Hypercoagulable state due to 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 (CMS/HCC) shelter current use of anticoagulant therapy Hyperlipidemia, unspecified hyperlipidemia type Chest pain, unspecified type Primary hypertension Unspecified essential hypertension Paroxysmal atrial 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 (CMS/HCC) Atrial 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 documented in this encounter [facility] Work Phone: Evaluation note* Diagnosis shelter current use of anticoagulant therapy- Primary Atrial 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, unspecified type (CMS/HCC) Gastroesophageal reflux disease, unspecified whether esophagitis present Paroxysmal atrial 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 (CMS/HCC) Atrial 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 Primary hypertension Unspecified essential hypertension Mixed hyperlipidemia Hypercoagulable state due to 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 (CMS/HCC) Current every day smoker Encounter to discuss test results Other specified counseling documented in this encounter [facility] Work Phone: History general Narrative - Reported* Type Description Date Medical History GERD Medical History PUD Medical History hyperlipidemia Medical History diverticulosis Medical History colon polyps Surgical History HYSTERECTOMY Surgical History APPENDECTOMY Surgical History HEMRRHOIDECTOMY 01/16/21 Hospitalization History SEE [facility] Other Reason for referral (narrative)* Consultation (Routine) - Authorized Specialty Diagnoses / Procedures Referred By Love santiago Referred To Contact Cardiology Diagnoses Atrial 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, unspecified type (CMS/HCC) Paroxysmal atrial 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 (CMS/HCC) Primary hypertension Mixed hyperlipidemia Procedures Follow Up In Cardiology Jolly Smith MD [address] [place] [address] [address] [place] [address] Jessica Rincon, [employer]SPORT MECH[employer]IC [address] [facility] [address], [facility] [address] [place] [address] Referral ID Status Reason Start Date Expiration Date V isits Requested Visits Authorized [id number] Authorized 07/11/2023 07/10/2024 1 1 * Consultation (Routine) - Authorized Specialty Diagnoses / Procedures Referred By Love t Referred To Contact Cardiology Diagnoses Atrial 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, unspecified type (CMS/HCC) Gastroesophageal reflux disease, unspecified whether esophagitis present Paroxysmal atrial 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 (CMS/HCC) Primary hypertension Mixed hyperlipidemia Procedures Follow Up In Cardiology Jolly Smith MD [address] [facility] [address] [place] [address] Jolly Smith MD [address] [facility] [address] [place] [address] Referral ID Status Reason Start Date Expiration Date V isits Requested Visits Authorized [id number] Authorized 07/11/2023 07/10/2024 1 1 [facility] Work Phone: Chief Complaint and Reason for [...] state due to 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 (CMS/HCC) 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 Hyperlipidemia, unspecified hyperlipidemia type Chest pain, unspecified type Primary hypertension Paroxysmal atrial 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 (CMS/HCC) Procedures Nuclear Stress Test WI CV STRS TST XERS&/OR RX CONT ECG W/SI&R WI CV STRS TST XERS&/OR RX CONT ECG W/O I&R WI CV STRS TST XERS&/OR RX CONT ECG TRCG ONLY WI CV STRS TST XERS&/OR RX CONT ECG I&R ONLY CHG MYOCARDIAL SPECT MULTIPLE STUDIES Jolly Smith MD [address] [facility] [address] [place] [address] Referral ID Status Reason Start Date Expiration Date Visits Requested Visits Authorized [id number] Pending Review Perform Procedure 06/23/2023 06/22/2024 5 5 Specialty Diagnoses / Procedures Referred By Contac t Referred To Contact Diagnoses Atrial 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, unspecified type (CMS/HCC) Procedures ECG 12 Lead Jolly Smith MD [address] [place] [id number] Referral ID Status Reason Start Date Expiration Date V isits Requested Visits Authorized [id number] Authorized 06/23/2023 06/22/2024 1 1 Specialty Diagnoses / Procedures Referred By Contac t Referred To Contact Cardiology Diagnoses Atrial 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, unspecified type (CMS/HCC) Gastroesophageal reflux disease, unspecified whether esophagitis present Procedures Follow Up In Cardiology Jolly Smith MD [address] [place] [id number] Jolly Smith MD [address] [place] [id number] Referral ID Status Reason Start Date Expiration Date V isits Requested Visits Authorized [id number] Authorized 06/23/2023 06/22/2024 1 1 Additional Source Comments REASON FOR VISIT (unrecogniz ed section and content) Reason Comments Establish Care Atrial Fibrillation Onset new afib Specialty Diagnoses / Procedures Referred By Contac t Referred To Contact Diagnoses Atrial 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, unspecified type (CMS/HCC) Procedures ECG 12 Lead Jolly Smith MD [address] [place] [id number] Referral ID Status Reason Start Date Expiration Date V isits Requested Visits Authorized [id number] Authorized 06/23/2023 06/22/2024 1 1 Specialty Diagnoses / Procedures Referred By Contac t Referred To Contact Cardiology Diagnoses Hypercoagulable state due to 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 (CMS/HCC) shelter current use of anticoagulant therapy Hyperlipidemia, unspecified hyperlipidemia type Chest pain, unspecified type Primary hypertension Paroxysmal atrial 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 (CMS/HCC) Procedures Nuclear Stress Test WI CV STRS TST XERS&/OR RX CONT ECG W/SI&R WI CV STRS TST XERS&/OR RX CONT ECG W/O I&R WI CV STRS TST XERS&/OR RX CONT ECG TRCG ONLY WI CV STRS TST XERS&/OR RX CONT ECG I&R ONLY CHG MYOCARDIAL SPECT MULTIPLE STUDIES Jolly Smith MD [address] [facility] [address] [place] [address] Referral ID Status Reason Start Date Expiration Date Visits Requested Visits Authorized [id number] Authorized Perform Procedure 06/23/2023 06/22/2024 5 5 Reason Comments Follow-up Stress results Specialty Diagnoses / Procedures Referred By Contac t Referred To Contact Cardiology Diagnoses Atrial 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, unspecified type ([facility]) Gastroesophageal reflux disease, unspecified whether esophagitis present Procedures Follow Up In Cardiology Jolly Smith MD [address] [facility] [address] [place] [address] Jolly Smith MD [address] [facility] [address] [place] [address] Referral ID Status Reason Start Date Expiration Date V isits Requested Visits Authorized [id number] Authorized 06/23/2023 06/22/2024 1 1 Care Teams [...] Shaikh Ashley MD Primary Care Provider Active Cigarette Vendor Relationship Specialty Start Date End Date Shaikh Ramirez MD [address] [place] [id number] PCP - General Internal Medicine 06/03/23 Cigarette Vendor Relationship Specialty Start Date End Date Shaikh Ramirez MD [address] [place] [id number] PCP - General Internal Medicine 06/03/23 Cigarette Vendor Relationship Specialty Start Date End Date Shaikh Ramirez MD [address] [place] [address] PCP - General Internal Medicine 06/03/23 Cigarette Vendor Relationship Specialty Start Date End Date Shaikh Ramirez MD PCP - General Internal Medicine 06/03/23 Cigarette Vendor Relationship Specialty Start Date End Date Shaikh Ramirez MD [address] [place] [place] [address] PCP - General Internal Medicine 06/29/23 INFORMATION SOURCE (unrecogn ized section and content) DATE CREATED AUTHOR 04/12/2022 [facility] DATE CREATED AUTHOR AUTHOR'S ORGANIZ ATION 07/03/[address] [facility] DATE CREATED AUTHOR AUTHOR'S ORGANIZ ATION 03/25/2023 [facility] DATE CREATED AUTHOR AUTHOR'S ORGANIZ ATION 07/12/2023 [facility] DATE CREATED AUTHOR AUTHOR'S ORGANIZ ATION 07/13/2023 [facility] DATE CREATED AUTHOR AUTHOR'S ORGANIZ ATION 09/28/2023 [facility] EPIC FOR RECORDS PERTAINING TO PATIENTS WHO ARE [...] BE BASED ON THE PRIMARY CLINICAL RECORDS. [employer] [facility]. provides no warranty or guarantee of the accuracy or completeness of information in this document.
[2023-11-09 10:14] LABS: Basophils Absolute Auto 0.1 10^3/uL (0.0-0.1); Basophils Percent Auto 0.8 % (0.2-2.0); Eosinophils Absolute Auto 0.1 10^3/uL (0.0-0.7); Eosinophils Percent Auto 1.5 % (0.9-7.0); Hematocrit 43.4 % (36.0-48.0); Immature Granulocytes Abs Auto 0.02 10^3/uL (0.00-0.03); Immature Granulocytes Pct Auto 0.3 % (0.0-0.5); Lymphocytes Absolute Auto 2.1 10^3/uL (1.2-3.8); Lymphocytes Percent Auto 26.8 % (20.5-60.0); Mean Corpuscular HGB Conc 32.3 g/dL (29.9-35.2); Mean Corpuscular Hemoglobin 29.8 pg (26.7-34.0); Mean Corpuscular Volume 92.3 fL (81.0-99.0); Mean Platelet Volume 11.1 fL (9.5-13.5); Monocytes Absolute Auto 0.6 10^3/uL (0.3-0.8); Monocytes Percent Auto 7.2 % (1.7-12.0); Neutrophils Absolute Auto 4.9 10^3/uL (1.4-6.5); Neutrophils Percent Auto 63.4 % (43.0-75.0); Platelet Count 271 10^3/uL (150-450); Red Cell Distribution Width 13.2 % (11.0-15.0); White Blood Count 7.8 10^3/uL (4.0-11.0)
[2023-11-09 11:21] LABS: Alanine Aminotransferase 21 U/L (14-59); Albumin Level 3.6 g/dL (3.4-5.0); Alkaline Phosphatase 87 U/L (46-116); Anion Gap 9.8; Aspartate Amino Transferase 13 U/L (15-37); Bilirubin Total 0.6 mg/dL (0.2-1.0); Calcium 9.2 mg/dL (8.5-10.1); Carbon Dioxide 28.6 mmol/L (21.0-32.0); Chloride 102 mmol/L (98-107); Chol HDL Ratio 3.1; Cholesterol 159 mg/dL (<=200); Estimated GFR (African America >60 (>=60); Estimated GFR (Non-African Ame >60 (>=60); Globulin 3.6 g/dL; Glucose 90 mg/dL (74-106); HDL Cholesterol 52 mg/dL (40-60); LDL Cholesterol Calculated 83.4 mg/dL; Potassium 4.4 mmol/L (3.5-5.1); Sodium 136 mmol/L (136-145); Total Protein 7.2 g/dL (6.4-8.2); Triglycerides 118 mg/dL (<=150); VLDL CHOLESTEROL 23.6 mg/dL
== END 2023-11-09 09:08 | disposition home or self-care (01) ==
LOC: LAB 09:09
PROVIDERS: PCP Internal Medicine; Visit Provider Internal Medicine
DX: E78.5 Hyperlipidemia, unspecified (principal); I10 Essential (primary) hypertension
CPT/HCPCS: 36415; 80053; 80061; 85025

== ENCOUNTER 2024-01-31 09:59 | Outpatient (OUT) | payer MEDICARE, SELFPAY ==
--- OUTSIDE RECORDS SUMMARY | 2024-01-31 10:24 | XMS_ITS | CCD ---
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 Name Role Phone Dede Garcia Unavailable Jaime Paulino Unavailable Gume Ziegler Unavailable DO uGme Ziegler Attending Provider MD Nevin Ramirez Primary [...] Attending Unavailable Gabriel Qiu Admitting Unavailable Fawwad, Rooney Primary Care Unavailable Gabriel Qiu Attending Unavailable Gabriel Qiu Admitting Unavailable Gume Ziegler Attending Unavailable Gume Ziegler Admitting Unavailable Fawad, [facility] Primary Care Unavailable Gume Ziegler Attending Unavailable Gume Ziegler Admitting Unavailable Fawwad, Rooney Primary Care Unavailable F[place]wad, Rooney Primary Care Unavailable Gabriel Qiu Attending Unavailable Gabriel Qiu Admitting Unavailable Gracia Woodruff Unavailable Ashley LEROY [facility] Primary Care Provider [phone] DOREEN SMITHTHA Referring Unavailable [facility] Primary Care Unavailable Ashley LEROY, [facility] Primary Care Provider [phone] Ashley LEROY [facility] Primary Care Provider ASHLEY, ROONEY Attending Unavailable ASHLEY, ROONEY Attending Unavailable [facility] Attending Unavailable [facility] Attending Unavailable LLOYD, JOLLY Attending Unavailable [facility] Primary Care Unavailable SMITH, JOLLY Referring Unavailable SMITH, JOLLY Attending Unavailable SMITH, JOLLY Referring Unavailable [facility] Primary Care Unavailable RICHARDSON RINCON Attending Unavailable SMITH, JOLLY Referring Unavailable [facility]Y Primary Care Unavailable Allergies Allergy Classification Reported Allergen(s) Allergy Type Date of Onset Reaction(s) Facility (16 sources) Ciprofloxacin; Translations: [CIPROFLOXACIN] Drug Allergy 3 Unknown [facility] (18 sources) Codeine; Translations: [CODEINE] Drug Allergy 2 [facility] (18 sources) metroNIDAZOLE; Translations: [METRONIDAZOLE] Drug Allergy 2 [facility] (9 sources) Penicillin V Drug Allergy IPM [place] Other (3 sources) Cefaclor; Translations: [cefaclor] [facility] Dicyclomine; Translations: [dicyclomine] Drug Allergy 2 [facility] (5 sources) Penicillins; Translations: [Penicillins] Allergy to substance 3 [facility] (1 source) Adhesive agent Drug allergy (disorder) [facility] Rep[facility] (1 source) Ciprofloxacin Drug Allergy 4 [facility] (1 source) Codeine Drug Allergy 3 [facility] (1 source) Latex Drug allergy (disorder) [facility] (1 source) NSAIDs Drug allergy (disorder) 3 [facility] (1 source) Codeine Drug Allergy 2 [facility] Repository (1 source) metroNIDAZOLE Drug Allergy 2 [facility] Rep[facility] (6 sources) Penicillin G; Translations: [PENICILLIN G] Drug Allergy 4 [facility] Work Phone: Medications Current Medications Medication Drug Class(es) Dates Sig (Normalized) Sig (Original) [id number] 200 actuat albuterol 0.09 mg/actuat metered dose [...] Start: 09-01-2022 take 2 tablets by [facility] every twelve hours Calcium 500 With [...] Start: 12-18-2020 take 1 capsule by [facility] every twelve hours Colace 100 MG [...] Translations: [Unspecified hemorrhoids] Onset: 4 12-23-2021 Episodic Osteoarthritis (20 sources) Arthritis of left wrist; Translations: [Primary osteoarthritis, left wrist] Onset: 1 Resolved: 1 Chronic Other aftercare (1 source) Other [facility] (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 therapy; Translations: [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 THERAPY] Onset: 2 Episodic Other aftercare (6 sources) Long-term current use of anticoagulant; Translations: [band straightener (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 anticoagulants] Onset: 4 06-23-2023 [...] Classification Problem Date Documented Da te Episodic/Chronic Administrative/social admission (4 sources) Follow-up status; Translations: [Person consulting for explanation of examination or test findings] Onset: 07-11-2023 07-11-2023 Episodic Gastrointestinal hemorrhage (7 sources) Melena; Translations: [Hematochezia] Onset: 10-28-2021 Resolved: 10-28-2021 Episodic Mood disorders (1 source) Mood disorders Onset: 05-17-2023 05-17-2023 Nonspecific chest pain (9 sources) Chest pain; Translations: [Chest pain, unspecified] Onset: 06-23-2023 06-23-2023 Episodic Other aftercare (4 sources) band straightener (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 anticoagulants; Translations: [band straightener (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 anticoagulants] Onset: 06-23-2023 Episodic Other circulatory disease (4 sources) Elevated [...] WITH AUTO DIFFon BASOPHILS ABSOLUTE AUTO 0.1 [facility] Basophils/100 WBC (Bld) 0.7 % 0.2 - 2.0 % [facility] Eosinophils/100 WBC (Bld) 1.9 % 0.9 - 7.0 % [facility] Erythrocyte distribution width (RBC) [Ratio] 13.7 % 11.0 - 15.0 % [facility] Hematocrit (Bld) [Volume fraction] 44.8 % 36.0 - 48.0 % [facility] Hemoglobin (Bld) [Mass/Vol] 14.3 g/dL 12.0 - 16.0 g/dL [facility] IMMATURE GRANULOCYTES ABS AUTO 0.02 [facility] Immature granulocytes/100 WBC (Bld) 0.3 % 0.0 - 0.5 % [facility] LYMPHOCYTES ABSOLUTE AUTO 2.4 [facility] Lymphocytes/100 WBC (Bld) 31.9 % 20.5 - 60.0 % [facility] MCH (RBC) [Entitic mass] 30.6 pg 26.7 - 34.0 pg [facility] MCHC (RBC) [Mass/Vol] 31.9 g/dL 29.9 - 35.2 g/dL [facility] MCV (RBC) [Entitic vol] 95.7 fL 81.0 - 99.0 fL [facility] MONOCYTES ABSOLUTE AUTO 0.5 [facility] Monocytes/100 WBC (Bld) 7.0 % 1.7 - 12.0 % [facility] NEUTROPHILS ABSOLUTE AUTO 4.4 [facility] Neutrophils/100 WBC (Bld) 58.2 % 43.0 - 75.0 % [facility] Platelet mean volume (Bld) [Entitic vol] 10.7 fL 9.5 - 13.5 fL [facility] EO # 0.1 [facility] PLT 219 [facility] RBC 4.68 [facility] WBC 7.5 [facility] NM Heart Perfusion W stress and W radionuclide Jesse 07-07-2023 Normal Lexiscan Myoview cardiac perfusion stress test. No evidence of ischemia or myocardial infarction by perfusion imaging. Normal left ventricular systolic function, ejection fraction 77%. No previous studies are available for comparison. Signed by: Luisa Cabrera 07/07/2023 4:22 PM Dictation workstation: [id number] Interpreted By: Luisa Cabrera, Roya Bahena STUDY: MYOCARDIAL PERFUSION STRESS TEST WITH LEXISCAN Performing facility: [facility], [address] [place] [address], [address], [address] Provider: Jolly Smith MD, FACC PCP: Dr. Reyna RAMIREZ Supervising provider: Jolly Smith MD, FACC INDICATION: Atherosclerosis of coronary artery of campo heart without angina pectoris, unspecified vessel or lesion type I25.10 (ICD-10-CM); Chest pain, unspecified type R07.9 (ICD-10-CM) HISTORY: Gender: F; Age: 72 y/o ; Height: HT 157.5 cm cm; Weight: WT 65.318 kg kg. CAD; Chest Pain; HTN; COPD; SOB; Arrhythmias; AFib, Palpitations; Currently smoking. COMPARISON: No comparison. ACCESSION NUMBER(S): [id number] ORDERING CLINICIAN: JOLLY SMITH TECHNIQUE: ONE DAY [...] PERFUSION STRESS TEST WITH LEXISCAN Performing facility: [facility], [address] [place] [address], [address], [address] Provider: Jolly Smith MD, FACC PCP: Dr. Reyna RAMIREZ Supervising provider: Jolly Smith MD, FACC INDICATION: Atherosclerosis of coronary artery of campo heart without angina pectoris, unspecified vessel or lesion type I25.10 (ICD-10-CM); Chest pain, unspecified type R07.9 (ICD-10-CM) HISTORY: Gender: F; Age: 72 y/o ; Height: HT 157.5 cm cm; Weight: WT 65.318 kg kg. CAD; Chest Pain; HTN; COPD; SOB; Arrhythmias; AFib, Palpitations; Currently smoking. COMPARISON: No comparison. ACCESSION NUMBER(S): [id number] ORDERING CLINICIAN: JOLLY SMITH TECHNIQUE: ONE DAY [...] Luisa Cabrera 07/07/2023 4:22 PM Dictation workstation: [id number] [facility] Work Phone: Radiology Study observation (narrative) [facility] Work Phone: NM Heart Perfusion W stress and W radionuclide IVOrdered By: Luisa Cabrera on 07-07-2023 [facility] Work Phone: NUCLEAR STRESS TESTon 2023 NUCLEAR STRESS TEST Interpreted By: Luisa Cabrera and Beal Gina STUDY: MYOCARDIAL PERFUSION STRESS TEST WITH LEXISCAN Performing facility: [facility], [address] [place] [address], [address], [address] Provider: Jolly Smith MD, FACC PCP: Dr. Reyna RAMIREZ Supervising provider: Jolly Smith MD, FACC INDICATION: Atherosclerosis of coronary artery of campo heart without angina pectoris, unspecified vessel or lesion type I25.10 (ICD-10-CM); Chest pain, unspecified type R07.9 (ICD-10-CM) HISTORY: Gender: F; Age: 72 y/o ; Height: HT 157.5 cm cm; Weight: WT 65.318 kg kg. CAD; Chest Pain; HTN; COPD; SOB; Arrhythmias; AFib, Palpitations; Currently smoking. COMPARISON: No comparison. ACCESSION NUMBER(S): [id number] ORDERING CLINICIAN: JOLLY SMITH TECHNIQUE: ONE DAY [...] Luisa Cabrera 07/07/2023 4:22 PM Dictation workstation: [id number] [facility] ECG 12 [place] 06-23-2023 [facility] Work Phone: Patient Letter FTMCon 2022 Patient Letter [facility] March 23, 2023 CY[address] VILLA [address] [facility] [place] [place] [address] : 1950 Dear Cydney, This is a reminder that you are due for an appointment with [facility]. Please contact our office at [phone] to schedule an appointment at your earliest convenience. Thank you, [facility] Reminderson 03-23-2023 Reminders - From: Juliane Gillis MA To: [facility] - Reminders/Recalls; Sent: 02/04/2023 13:34:26 EDT Show up: 02/04/2023 13:34:00 EDT Subject: colon recall Reminder Message 10 year recall Yehuda 09/22/12 first recall letter second recall letter Normal [facility] Patient Letter FTon 2022 Patient Letter [facility] February 07, 2023 [address]A [address] [place] [address] : 1950 Dear Cydney, This is a reminder that you are due for an appointment with [facility]. Please contact our office at [phone] to schedule an appointment at your earliest convenience. Thank you, [facility] Normal [facility] Patient Letter [facility] 2022 Patient Letter [facility] September 29, 2022 [address]A [address] [place] [address] CYDNEY VILLA 1950 Dear Cydney, This is a SECOND ATTEMPT to remind you that you are due for an appointment with [facility]. Please contact our office at [phone] to schedule an appointment at your earliest convenience. Thank you, [facility] Normal [facility] Reminderson 09-29-2022 Reminders - From: Ligia Roberts To: [facility] - Reminders/Recalls; Sent: 09/13/2022 10:56:07 EDT Show up: 09/13/2022 10:56:00 EDT Subject: Ambulatory Reminder Reminder/Recall arturo aguilar 10 year colon recall 09/19/2022 first recall letter second recall letter Normal [facility] Patient Letter FTon 2022 Patient Letter FT September 13, 2022 [address] [place] [address] CYDNEY VILLA 1950 Dear Cydney, This is a reminder that you are due for an appointment with [facility]. Please contact our office at [phone] to schedule an appointment at your earliest convenience. Thank you, [facility] Normal [facility] PROF CHEM 8 (BAS METB)on Anion gap [Moles/Vol] 10.8 mmol/L Normal [facility] Comment on above: Performed By: #### B MP #### [facility] [address] [address] [address] Josef Fraire Calcium [Mass/Vol] 9.4 mg/dL Normal 8.5-10.1 [facility] Comment on above: Performed By: #### B MP #### [facility] [address] [address] [address] Josef Fraire Chloride [Moles/Vol] 104 mmol/L Normal 98-107 [facility] Comment on above: Performed By: #### B MP #### [facility] [address] [address] [address] Josef Fraire CO2 [Moles/Vol] 28.4 mmol/L Normal 21.0-32.0 [facility] Comment on above: Performed By: #### B MP #### [facility] [address] [address] [address] Josef Fraire Creatinine [Mass/Vol] 1.03 mg/dL Critically high 0.55-1.02 [facility] Comment on above: Performed By: #### B MP #### [facility] [address] [address] [address] Josef Fraire EGFR-AF BRAZILIAN >60 Normal >=60 [facility] Comment on above: Performed By: #### B MP #### [facility] [address] [address] [address] Josef Fraire EGFR-NON AF BRAZILIAN 53 mL/min/1.73m2 Critically low >=60 [facility] Comment on above: Performed By: #### B MP #### [facility] [address] [address] [address] Josef Fraire Glucose [Mass/Vol] 82 mg/dL Normal 74-106 [facility] Comment on above: Performed By: #### B MP #### [facility] [address] [place] [address] Dr. Josef Fraire Potassium [Moles/Vol] 4.2 mmol/L Normal 3.5-5.1 [facility] Comment on above: Performed By: #### B MP #### [facility] [address] [place] [address] Dr. Josef Fraire Sodium [Moles/Vol] 139 mmol/L Normal 136-145 [facility] Comment on above: Performed By: #### B MP #### [facility] [address] [place] [address] Dr. Josef Fraire Urea nitrogen [Mass/Vol] 10.0 mg/dL Normal 7.0-18.0 [facility] Comment on above: Performed By: #### B MP #### [facility] [address] [place] [address] Dr. Josef Fraire Urea nitrogen/Creatinine [Mass ratio] 9.7 mg/mg Normal [facility] Comment on above: Performed By: #### B MP #### [facility] [address] [place] [address] Dr. Josef Fraire CBC AUTO DIFFon 01-28-2022 BASO # 0.1 103/ul Normal 0.0-0.1 [facility] Comment on above: Performed By: #### C BC #### [facility] [address] [place] [address] Dr. Josef Fraire Basophils/100 WBC (Bld) 0.6 % Normal 0.2-2.0 [facility] Comment on above: Performed By: #### C BC #### [facility] [address] [place] [address] Dr. Josef Fraire EO # 0.2 103/ul Normal 0.0-0.7 [facility] Comment on above: Performed By: #### C BC #### [facility] [address] [place] [address] Dr. Josef Fraire Eosinophils/100 WBC (Bld) 1.5 % Normal 0.9-7.0 [facility] Comment on above: Performed By: #### C BC #### [facility] [address] [place] [address] Dr. Josef Fraire Erythrocyte distribution width (RBC) [Ratio] 13.4 % Normal 11.0-15.0 [facility] Comment on above: Performed By: #### C BC #### [facility] [address] [place] [address] Dr. Josef Fraire Hematocrit (Bld) [Volume fraction] 43.0 % Normal 36.0-48.0 [facility] Comment on above: Performed By: #### C BC #### [facility] [address] [place] [address] Dr. Josef Fraire Hemoglobin (Bld) [Mass/Vol] 14.6 g/dL Normal 12.0-16.0 [facility] Comment on above: Performed By: #### C BC #### [facility] [address] [place] [address] Dr. Josef Fraire IG # 0.05 10e3/ul Critically high 0.00-0.03 [facility] Comment on above: Performed By: #### C BC #### [facility] [address] [place] [address] Dr. Josef Fraire IG % 0.5 % Normal 0.0-0.5 [facility] Comment on above: Performed By: #### C BC #### [facility] [address] [place] [address] Dr. Josef Fraire LYMPH # 3.1 103/ul Normal 1.2-3.8 [facility] Comment on above: Performed By: #### C BC #### [facility] [address] [place] [address] Dr. Josef Fraire Lymphocytes/100 WBC (Bld) 29.5 % Normal 20.5-60.0 [facility] Comment on above: Performed By: #### C BC #### [facility] [address] [place] [address] Dr. Josef Fraire MANUAL DIFF REQ NO Normal [facility] Comment on above: Performed By: #### C BC #### [facility] [address] [address] [address] Josef Fraire MCH (RBC) [Entitic mass] 30.0 pg Normal 26.7-34.0 [facility] Comment on above: Performed By: #### C BC #### [facility] [address] [address] [address] Josef Fraire MCHC (RBC) [Mass/Vol] 34.0 g/dL Normal 29.9-35.2 [facility] Comment on above: Performed By: #### C BC #### [facility] [address] [address] [address] Josef Fraire MCV (RBC) [Entitic vol] 88.3 fL Normal 81.0-99.0 [facility] Comment on above: Performed By: #### C BC #### [facility] [address] [place] [address] Dr. Josef Fraire MONO # 0.7 103/ul Normal 0.3-0.8 [facility] Comment on above: Performed By: #### C BC #### [facility] [address] [place] [address] Dr. Josef Fraire Monocytes/100 WBC (Bld) 6.8 % Normal 1.7-12.0 [facility] Comment on above: Performed By: #### C BC #### [facility] [address] [place] [address] Dr. Josef Fraire NEUT # 6.5 103/ul Normal 1.4-6.5 [facility] Comment on above: Performed By: #### C BC #### [facility] [address] [place] [address] Dr. Josef Fraire Neutrophils/100 WBC (Bld) 61.1 % Normal 43.0-75.0 [facility] Comment on above: Performed By: #### C BC #### [facility] [address] [place] [address] Dr. Josef Fraire Platelet mean volume (Bld) [Entitic vol] 10.7 fL Normal 9.5-13.5 [facility] Comment on above: Performed By: #### C BC #### [facility] [address] [place] [address] Dr. Josef Fraire PLT 313 103/ul Normal 150-450 [facility] Comment on above: Performed By: #### C BC #### [facility] [address] [place] [address] Dr. Josef Fraire RBC 4.87 106/ul Normal 4.20-5.40 [facility] Comment on above: Performed By: #### C BC #### [facility] [address] [place] [address] Dr. Josef Fraire WBC 10.7 103/ul Normal 4.0-11.0 [facility] Comment on above: Performed By: #### C BC #### [facility] [address] [place] [address] Dr. Josef Fraire ER URINE PROFILEon 2 Bilirubin Ql (U) Negative Normal NEGATIVE [facility] Comment on above: Performed By: #### E RUR #### [facility] [address] [place] [address] Dr. Josef Fraire Clarity (U) CLEAR Normal CLEAR [facility] Comment on above: Performed By: #### E RUR #### [facility] [address] [place] [address] Dr. Josef Fraire Color (U) LT. YELLOW Normal YELLOW [facility] Comment on above: Performed By: #### E RUR #### [facility] [address] [place] [address] Dr. Josef FISHER A micrscopic examination will be performed if indicated. Normal [facility] Comment on above: Performed By: #### E RUR #### [facility] [address] [place] [address] Dr. Josef Fraire Glucose Ql (U) Negative Normal NEGATIVE [facility] Comment on above: Performed By: #### E RUR #### [facility] [address] [place] [address] Dr. Josef Fraire Hemoglobin Ql (U) Negative Normal NEGATIVE [facility] Comment on above: Performed By: #### E RUR #### [facility] [address] [place] [address] Dr. Josef Fraire Ketones Ql (U) Negative Normal NEGATIVE [facility] Comment on above: Performed By: #### E RUR #### [facility] [address] [place] [address] Dr. Josef Fraire LEUKOCYTES Negative Normal NEGATIVE [facility] Comment on above: Performed By: #### E RUR #### [facility] [address] [place] [address] Dr. Josef Fraire Nitrite Ql (U) Negative Normal NEGATIVE [facility] Comment on above: Performed By: #### E RUR #### [facility] [address] [place] [address] Dr. Josef Fraire pH (U) 6.0 [pH] Normal 5-9 [facility] Comment on above: Performed By: #### E RUR #### [facility] [address] [place] [address] Dr. Josef Fraire SPEC GRAVITY <=1.005 Abnormal 1.005-<=1.025 [facility] Comment on above: Performed By: #### E RUR #### [facility] [address] [place] [address] Dr. Josef Fraire UA PROTEIN Negative Normal NEGATIVE/ TRACE [facility] Comment on above: Performed By: #### E RUR #### [facility] [address] [place] [address] Dr. Josef Fraire UR MICRO IND NOT INDICATED Normal [facility] Comment on above: Performed By: #### E RUR #### [facility] [address] [place] [address] Dr. Josef Fraire Urobilinogen Qn (U) 0.2 {Vero'U}/dL Normal 0.2 - 1. 0 [facility] Comment on above: Performed By: #### E RUR #### [facility] [address] [place] [address] Dr. Josef Fraire PROF CHEM 8 (BAS METB)on Anion gap [Moles/Vol] 14.6 mmol/L Normal [facility] Comment on above: Performed By: #### L IPID, CMP #### [facility] [address] [address] [address] Josef Fraire Calcium [Mass/Vol] 9.7 mg/dL Normal 8.5-10.1 [facility] Comment on above: Performed By: #### L IPID, CMP #### [facility] [address] [address] [address] Josef Fraire Chloride [Moles/Vol] 96 mmol/L Critically low 98-107 [facility] Comment on above: Performed By: #### L IPID, CMP #### [facility] [address] [place] [address] Dr. Josef Fraire CO2 [Moles/Vol] 25.8 mmol/L Normal 21.0-32.0 [facility] Comment on above: Performed By: #### L IPID, CMP #### [facility] [address] [place] [address] Dr. Josef Fraire Creatinine [Mass/Vol] 1.61 mg/dL Critically high 0.55-1.02 [facility] Comment on above: Performed By: #### L IPID, CMP #### [facility] [address] [place] [address] Dr. Josef Fraire EGFR-AF BRAZILIAN 38 mL/min/1.73m2 Critically low >=60 [facility] Comment on above: Performed By: #### L IPID, CMP #### [facility] [address] [place] [address] Dr. Josef Fraire EGFR-NON AF BRAZILIAN 32 mL/min/1.73m2 Critically low >=60 [facility] Comment on above: Performed By: #### L IPID, CMP #### [facility] [address] [place] [address] Dr. Josef Fraire Glucose [Mass/Vol] 119 mg/dL Critically high 74-106 T [facility] Comment on above: Performed By: #### L IPID, CMP #### [facility] [address] [place] [address] Dr. Josef Fraire Potassium [Moles/Vol] 3.4 mmol/L Critically low 3.5-5.1 [facility] Comment on above: Result Comment: SPEC KATHY IS JUST SLIGHTLY HEMOLYZED AND SLIGHTLY LIPEMIC Performed By: #### L IPID, CMP #### [facility] [address] [place] [address] Dr. Josef Fraire Sodium [Moles/Vol] 133 mmol/L Critically low 136-145 [facility] Comment on above: Performed By: #### L IPID, CMP #### [facility] [address] [place] [address] Dr. Josef Fraire Urea nitrogen [Mass/Vol] 22.0 mg/dL Critically high 7.0-18.0 [facility] Comment on above: Performed By: #### L IPID, CMP #### [facility] [address] [place] [address] Dr. Josef Fraire Urea nitrogen/Creatinine [Mass ratio] 13.7 mg/mg Normal [facility] Comment on above: Performed By: #### L IPID, CMP #### [facility] [address] [place] [address] Dr. Josef Fraire TROPONIN, HIGH SENSITIVITYon 01-28-2022 HSTROP 8.3 pg/mL Normal 4.0-51.3 [facility] Comment on above: Result Comment: CUT- OFF POINTS HAVE BEEN ESTABLISHED BASED ON THE FOURTH UNIVERSAL DEFINITIONS OF MYOCARDIAL INFARCTION. THE UPPER REFERENCE LIMIT (URL) OF TROPONIN, DEFINED THE 99TH PERCENTILE OF cTnI DISTRIBUTION IN A REFERENCE POPULATION, HAS BEEN CONFIRMED THE DECISION THRESHOLD FOR IA DIAGNOSIS. Performed By: #### L IPID, CMP #### [facility] [address] [place] [address] Dr. Josef Fraire PROF CHEM 8 (BAS METB)on Anion gap [Moles/Vol] 14.6 mmol/L Normal [facility] Comment on above: Performed By: #### B MP #### [facility] [address] [place] [address] Dr. Josef Fraire Calcium [Mass/Vol] 10.6 mg/dL Critically high 8.5-10.1 [facility] Comment on above: Performed By: #### B MP #### [facility] [address] [address] [address] Josef Fraire Chloride [Moles/Vol] 97 mmol/L Critically low 98-107 [facility] Comment on above: Performed By: #### B MP #### [facility] [address] [address] [address] Josef Fraire CO2 [Moles/Vol] 29.5 mmol/L Normal 21.0-32.0 [facility] Comment on above: Performed By: #### B MP #### [facility] [address] [place] [address] Dr. Josef Fraire Creatinine [Mass/Vol] 1.34 mg/dL Critically high 0.55-1.02 [facility] Comment on above: Performed By: #### B MP #### [facility] [address] [address] [address] Josef Fraire EGFR-AF BRAZILIAN 47 mL/min/1.73m2 Critically low >=60 [facility] Comment on above: Performed By: #### B MP #### [facility] [address] [place] [address] Dr. Josef Fraire EGFR-NON AF BRAZILIAN 39 mL/min/1.73m2 Critically low >=60 [facility] Comment on above: Performed By: #### B MP #### [facility] [address] [address] [address] Josef Fraire Glucose [Mass/Vol] 88 mg/dL Normal 74-106 [facility] Comment on above: Performed By: #### B MP #### [facility] [address] [address] [address] Josef Fraire Potassium [Moles/Vol] 4.1 mmol/L Normal 3.5-5.1 [facility] Comment on above: Performed By: #### B MP #### [facility] [address] [place] [address] Dr. Josef Fraire Sodium [Moles/Vol] 137 mmol/L Normal 136-145 [facility] Comment on above: Performed By: #### B MP #### [facility] [address] [place] [address] Dr. Josef Fraire Urea nitrogen [Mass/Vol] 22.0 mg/dL Critically high 7.0-18.0 [facility] Comment on above: Performed By: #### B MP #### [facility] [address] [place] [address] Dr. Josef Fraire Urea nitrogen/Creatinine [Mass ratio] 16.4 mg/mg Normal [facility] Comment on above: Performed By: #### B MP #### [facility] [address] [place] [address] Dr. Josef Fraire PROF CHEM 8 (BAS METB)on Anion gap [Moles/Vol] 9.5 mmol/L Normal [facility] Comment on above: Performed By: #### B MP #### [facility] [address] [place] [address] Dr. Josef Fraire Calcium [Mass/Vol] 9.1 mg/dL Normal 8.5-10.1 [facility] Comment on above: Performed By: #### B MP #### [facility] [address] [place] [address] Dr. Josef Fraire Chloride [Moles/Vol] 96 mmol/L Critically low 98-107 [facility] Comment on above: Performed By: #### B MP #### [facility] [address] [place] [address] Dr. Josef Fraire CO2 [Moles/Vol] 32.5 mmol/L Critically high 21.0-32.0 [facility] Comment on above: Performed By: #### B MP #### [facility] [address] [place] [address] Dr. Josef Fraire Creatinine [Mass/Vol] 0.76 mg/dL Normal 0.55-1.02 [facility] Comment on above: Performed By: #### B MP #### [facility] [address] [place] [address] Dr. Josef Fraire EGFR-AF BRAZILIAN >60 Normal >=60 [facility] Comment on above: Performed By: #### B MP #### [facility] [address] [address] [address] Josef Fraire EGFR-NON AF BRAZILIAN >60 Normal >=60 [facility] Comment on above: Performed By: #### B MP #### [facility] [address] [address] [address] Josef Fraire Glucose [Mass/Vol] 95 mg/dL Normal 74-106 [facility] Comment on above: Performed By: #### B MP #### [facility] [address] [address] [address] Josef Fraire Potassium [Moles/Vol] 3.0 mmol/L Critically low 3.5-5.1 [facility] Comment on above: Performed By: #### B MP #### [facility] [address] [address] [address] Josef Fraire Sodium [Moles/Vol] 135 mmol/L Critically low 136-145 [facility] Comment on above: Performed By: #### B MP #### [facility] [address] [address] [address] Josef Fraire Urea nitrogen [Mass/Vol] 9.0 mg/dL Normal 7.0-18.0 [facility] Comment on above: Performed By: #### B MP #### [facility] [address] [place] [address] Dr. Josef Fraire Urea nitrogen/Creatinine [Mass ratio] 11.8 mg/mg Normal [facility] Comment on above: Performed By: #### B MP #### [facility] [address] [place] [address] Dr. 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 This test has not been [...] is terminated or revoked sooner. PERFORMED BY: [place] [address] PATHOLOGIST CONSERVATION SCIENTIST JOUSÉ LEE M.D. Performed By: #### C OVID 19 [facility] #### [address] COVID-19 Positive/NegativeOr dered By: Gabriel Qiu on 12-21-2021 SARS-CoV-2 (COVID-19) N gene CHRIS+probe Ql (Resp) Negative Negative [facility] Comment on above: Testing for SARS-CoV -2 by RT-PCR This test was developed and its performance characteristics determined by [employer]) and validated at the [facility]. This test has not been [...] 07 Calcium [Mass/Vol] 9.7 mg/dL Normal 8.2-10.2 [facility] Comment on above: Result Comment: PERF ORMED BY: [place] [address] PATHOLOGIST CONSERVATION SCIENTIST JOSUÉ LEE M.D. Performed By: #### C BC, BMP #### [facility] [address] [place] [address] [place] Chloride [Moles/Vol] 104 mmol/L Normal 95-114 [facility] Comment on above: Performed By: #### C BC, BMP #### [facility] [address] CO2 [Moles/Vol] 26.9 mmol/L Normal 22.0-30.0 [facility] Comment on above: Performed By: #### C BC, BMP #### [facility] [address] [place] [address] Creatinine [Mass/Vol] 0.71 mg/dL Normal 0.44-1.03 [facility] Comment on above: Performed By: #### C BC, BMP #### [facility] [address] Estimated GFR ( Juliette > 60 Normal [facility] Comment on above: Result Comment: GFR estimated reference range: According to KDOQI guidelines, <60 ml/min/1.73m2 is sufficient to diagnose a patient with chronic kidney disease. Performed By: #### C BC, BMP #### [facility] [address] [place] [address] [place] Estimated GFR (Non- Am > 60 Normal [facility] Comment on above: Performed By: #### C BC, BMP #### [facility] [address] [id number] [place] Glucose [Mass/Vol] 81 mg/dL Normal 70-100 [facility] Comment on above: Result Comment: [place] om Glucose Reference Range is dependent on time and content of last meal. Glucose of more than 200 mg/dL in a nonstressed, ambulatory subject supports the diagnosis of Diabetes Mellitus. ADA recommended reference range Performed By: #### C AIDA, BMP #### [facility] [address] Potassium [Moles/Vol] 4.1 mmol/L Normal 3.5-5.1 [facility] Comment on above: Performed By: #### C AIDA, BMP #### [facility] [address] Sodium [Moles/Vol] 138 mmol/L Normal 136-146 [facility] Comment on above: Performed By: #### C AIDA, BMP #### [facility] [address] Urea nitrogen [Mass/Vol] 7 mg/dL Low 9-23 [facility] Comment on above: Performed By: #### C AIDA, BMP #### [facility] [address] Basophils Auto (Bld) [#/Vol] Ordered By: Gabriel Qiu on 12-11-2021 Basophils (Bld) [#/Vol] 0.1 10*3/uL 0.0-0.2 [facility] Basophils/100 WBC Auto (Bld) Ordered By: Gabriel Qiu on 12-11-2021 Basophils/100 WBC (Bld) 0.9 % . [facility] Blood hemoglobin measurement (mass/volume)Ordered By: Gabriel Qiu on 12-11-2021 Hemoglobin (Bld) [Mass/Vol] 15.1 g/dL 11.8-15.4 [facility] Blood leukocytes automated c ount (number/volume)Ordered By: Gabriel Qiu on 12-11-2021 WBC (Bld) [#/Vol] 9.0 10*3/uL 4.5-11.0 [facility] Complete Blood Count Auto Di ffon 12-11-2021 Basophils (Bld) [#/Vol] 0.1 10*3/uL Normal 0.0-0.2 [facility] Comment on above: Result Comment: PERF ORMED BY: [place] [address] PATHOLOGIST [employer]ATION SCIENTIST JOSUÉ LEE M.D. Performed By: #### C BC, BMP #### [address] Basophils/100 WBC (Bld) 0.9 % Normal . [facility] Comment on above: Performed By: #### C BC, BMP #### [address] Eosinophils (Bld) [#/Vol] 0.1 10*3/uL Normal 0.0-0.45 [facility] Comment on above: Performed By: #### C BC, BMP #### [address] Eosinophils/100 WBC (Bld) 1.3 % Normal . [facility] Comment on above: Performed By: #### C BC, BMP #### [address] Erythrocyte distribution width (RBC) [Ratio] 14.4 % Normal 11.9-15.3 [facility] Comment on above: Performed By: #### C BC, BMP #### [address] Hematocrit (Bld) [Volume fraction] 45.2 % Normal 34.0-46.4 [facility] Comment on above: Performed By: #### C BC, BMP #### [address] Hemoglobin (Bld) [Mass/Vol] 15.1 g/dL Normal 11.8-15.4 [facility] Comment on above: Performed By: #### C BC, BMP #### [address] Lymphocytes (Bld) [#/Vol] 1.8 10*3/uL Normal 1.00-4.8 [facility] Comment on above: Performed By: #### C BC, BMP #### [address] [place] [id number] [place] Lymphocytes/100 WBC (Bld) 19.7 % Normal . [facility] Comment on above: Performed By: #### C BC, BMP #### [address] MCH (RBC) [Entitic mass] 30.0 pg Normal 24.7-34.3 [facility] Comment on above: Performed By: #### C BC, BMP #### [address] MCV (RBC) [Entitic vol] 89.4 fL Normal 80-100 [facility] Comment on above: Performed By: #### C AIDA, BMP #### [address] Mean Corpuscular HGB Conc 33.5 g/dL Normal 32.0-35.0 [facility] Comment on above: Performed By: #### C BC, BMP #### [address] Monocytes (Bld) [#/Vol] 0.6 10*3/uL Normal 0.0-0.8 [facility] Comment on above: Performed By: #### C BC, BMP #### [address] Monocytes/100 WBC (Bld) 6.8 % Normal . [facility] Comment on above: Performed By: #### C BC, BMP #### [address] Neutrophils (Bld) [#/Vol] 6.4 10*3/uL Normal 1.8-7.7 [facility] Comment on above: Performed By: #### C BC, BMP #### [address] Neutrophils/100 WBC (Bld) 71.3 % Normal . [facility] Comment on above: Performed By: #### C BC, BMP #### [address] Nucleated RBC/100 WBC (Bld) [Ratio] 0.0 % Normal 0-0.5 [facility] Comment on above: Performed By: #### C AIDA, BMP #### [facility] [address] Platelet mean volume (Bld) [Entitic vol] 9.5 fL Normal 6.3-10.7 [facility] Comment on above: Performed By: #### C AIDA, BMP #### [facility] [address] [place] [address] [place] Platelets (Bld) [#/Vol] 245 10*3/uL Normal 150-450 [facility] Comment on above: Performed By: #### C AIDA, BMP #### [facility] [address] RBC (Bld) [#/Vol] 5.05 10*6/uL High 3.60-5.00 [facility] Comment on above: Performed By: #### C AIDA, BMP #### [facility] [address] WBC (Bld) [#/Vol] 9.0 10*3/uL Normal 4.5-11.0 [facility] Comment on above: Performed By: #### C AIDA, BMP #### [address] Creatinine and Glomerular fi ltration rate.predicted panel (S/P/Bld)Ordered By: Gabriel Qiu on 12-11-2021 Creatinine [Mass/Vol] 0.71 mg/dL 0.44-1.03 [facility] ECG 12 lead ECGon 12-11-2021 ECG 12 lead ECG [facility] [place] [address] [place] [address] Electrocardiograph Report Signed Patient: Cydney Villa MR#: [id number] : 1950 Acct:[id number] Age/Sex: 71 / F ADM Date: 12/11/21 Loc: Room: Type: [facility] CLI Attending Dr: Gabriel Qiu DO Ordering Provider: [...] Signed By Alberto Gray MD 918 Normal [facility] Eosinophils Auto (Bld) [#/Vo l]Ordered By: Gabriel Qiu on 12-11-2021 Eosinophils (Bld) [#/Vol] 0.1 10*3/uL 0.0-0.45 [facility] Eosinophils/100 WBC Auto (Bl d)Ordered By: Gabriel Qiu on 12-11-2021 Eosinophils/100 WBC (Bld) 1.3 % . [facility] Erythrocyte distribution wid th Auto (RBC) [Ratio]Ordered By: Gabriel Qiu on 12-11-2021 Erythrocyte distribution width (RBC) [Ratio] 14.4 % 11.9-15.3 [facility] Estimated glomerular filtrat ion rate (GFR) non- AmericanOrdered By: Gabriel Qiu on 12-11-2021 GFR/1.73 sq M.predicted among non-blacks MDRD (S/P/Bld) [Vol rate/Area] > 60 mL/Min [facility] Hematocrit Auto (Bld) [Volum e fraction]Ordered By: Gabriel Qiu on 12-11-2021 Hematocrit (Bld) [Volume fraction] 45.2 % 34.0-46.4 [facility] - Hematology and Cell countsOrdered By: Gabriel Qiu on 12-11-2021 Nucleated RBC/100 WBC (Bld) [Ratio] 0.0 % 0-0.5 [facility] Lymphocytes Auto (Bld) [#/Vo l]Ordered By: Gabriel Qiu on 12-11-2021 Lymphocytes (Bld) [#/Vol] 1.8 10*3/uL 1.00-4.8 [facility] Lymphocytes/100 WBC Auto (Bl d)Ordered By: Gabriel Qiu on 12-11-2021 Lymphocytes/100 WBC (Bld) 19.7 % . [facility] MCH Auto (RBC) [Entitic mass ]Ordered By: Gabriel Qiu on 12-11-2021 MCH (RBC) [Entitic mass] 30.0 pg 24.7-34.3 [facility] MCHC Auto (RBC) [Mass/Vol]Or dered By: Gabriel Qiu on 12-11-2021 MCHC (RBC) [Mass/Vol] 33.5 g/dL 32.0-35.0 [facility] MCV Auto (RBC) [Entitic vol] Ordered By: Gabriel Qiu on 12-11-2021 MCV (RBC) [Entitic vol] 89.4 fL 80-100 [facility] Monocytes Auto (Bld) [#/Vol] Ordered By: Gabriel Qiu on 12-11-2021 Monocytes (Bld) [#/Vol] 0.6 10*3/uL 0.0-0.8 [facility] Monocytes/100 WBC Auto (Bld) Ordered By: Gabriel Qiu on 12-11-2021 Monocytes/100 WBC (Bld) 6.8 % . [facility] Neutrophils Auto (Bld) [#/Vo l]Ordered By: Gabriel Qiu on 12-11-2021 Neutrophils (Bld) [#/Vol] 6.4 10*3/uL 1.8-7.7 [facility] Neutrophils/100 WBC Auto (Bl d)Ordered By: Gabriel Qiu on 12-11-2021 Neutrophils/100 WBC (Bld) 71.3 % . [facility] No Panel InformationOrdered By: Gabriel Qiu on 12-11-2021 Estimated GFR () > 60 mL/Min [facility] Comment on above: GFR estimated refere nce range: According to KDOQI guidelines, <60 ml/min/1.73m2 is sufficient to diagnose a patient with chronic kidney disease. Pharmacy Creatinine Clearance (Chem N/A [facility] Platelet mean volume Auto (B ld) [Entitic vol]Ordered By: Gabriel Qiu on 12-11-2021 Platelet mean volume (Bld) [Entitic vol] 9.5 fL 6.3-10.7 [facility] Platelets Auto (Bld) [#/Vol] Ordered By: Gabriel Qiu on 12-11-2021 Platelets (Bld) [#/Vol] 245 10*3/uL 150-450 [facility] RBC Auto (Bld) [#/Vol]Ordere d By: Gabriel Qiu on 12-11-2021 RBC (Bld) [#/Vol] 5.05 10*6/uL 3.60-5.00 [facility] Serum or plasma calcium malcom urement (mass/volume)Ordered By: Gabriel Qiu on 12-11-2021 Calcium [Mass/Vol] 9.7 mg/dL 8.2-10.2 [facility] Serum or plasma chloride andreea surement (moles/volume)Ordered By: Gabriel Qiu on 12-11-2021 Chloride [Moles/Vol] 104 mmol/L 95-114 [facility] Serum or plasma glucose malcom urement (mass/volume)Ordered By: Gabriel Qiu on 12-11-2021 Glucose [Mass/Vol] 81 mg/dL 70-100 [facility] Comment on above: ADA recommended refe rence range Random Glucose Reference Range is dependent on time and content of last meal. Glucose of more than 200 mg/dL in a nonstressed, ambulatory subject supports the diagnosis of Diabetes Mellitus. Serum or plasma potassium me asurement (moles/volume)Ordered By: Gabriel Qiu on 12-11-2021 Potassium [Moles/Vol] 4.1 mmol/L 3.5-5.1 [facility] Serum or plasma sodium measu rement (moles/volume)Ordered By: Gabriel Qiu on 12-11-2021 Sodium [Moles/Vol] 138 mmol/L 136-146 [facility] Serum or plasma total carbon dioxide measurement (moles/volume)Ordered By: Gabriel Qiu on 12-11-2021 CO2 [Moles/Vol] 26.9 mmol/L 22.0-30.0 [facility] Serum or plasma urea nitroge n measurement (mass/volume)Ordered By: Gabriel Qiu on 12-11-2021 Urea nitrogen [Mass/Vol] 7 mg/dL 02-19 [facility] COVID-19 Antigenon 2 COVID-19 Antigen [...] developed and its performance characteristic determined by [employer] and validated at [facility]. This test has not been [...] for SARS Antigen by MARITZA PERFORMED BY: [facility] [address] [place] [address] PATHOLOGIST CONSERVATION SCIENTIST JOSUÉ LEE M.D. [facility] Comment on above: Performed By: #### C OVID-19 BRITNEY LUJANEG #### [facility] [address] [id number] [facility] COVID-19 SOFIAOrdered By: Ruben Ziegler on 11-03-2021 SARS-CoV+SARS-CoV-2 (COVID-19) Ag IA.rapid Ql (Resp) Negative Negative [facility] Comment on above: This is a duplicate Le SARS Antigen (MARITZA) result to be used for statistical tracking purpose only. No Panel InformationOrdered By: Gume Ziegler on 11-03-2021 SARS Antigen (LFIA) [facility] Le Ag Negativeon 11-04-19 22 Le Ag Negative Negative Normal Negative [facility] Comment on above: Result Comment: This is a duplicate Le SARS Antigen (MARITZA) result to be used for statistical tracking purpose only. PERFORMED BY: [place] [address] PATHOLOGIST CONSERVATION SCIENTIST JOSUÉ LEE M.D. Performed By: #### C OVID-19 LE, SOFIANEG #### [address] [id number] [facility] MG MAMM SCREEN 3D TERESA CADon 10-27-2021 MG MAMM SCREEN 3D TERESA CAD Patient: CYDNEY VILLA Exam Date: 10/27/2021 : 1950 Gender:F Ordering : SHAIKH Denise RAMIREZ . Admission #: [id number] Family : Order #: [id number] CLICK HERE TO VIEW EXAM RADIOLOGY REPORT [...] Treatments None Family Cancers None LOCATION: [facility] BREAST COMPOSITION: Scattered areas fibroglandular [...] MD on 10/27/2021 at 14:15 Normal [facility] CBC AUTO DIFFon 10-13-2021 BASO # 0.0 103/ul Normal 0.0-0.1 [facility] Comment on above: Performed By: #### C BC #### [facility] [address] [place] [address] Dr. Josef Fraire Basophils/100 WBC (Bld) 0.5 % Normal 0.2-2.0 [facility] Comment on above: Performed By: #### C BC #### [facility] [address] [place] [address] Dr. Josef Fraire EO # 0.2 103/ul Normal 0.0-0.7 [facility] Comment on above: Performed By: #### C BC #### [facility] [address] [place] [address] Dr. Josef Fraire Eosinophils/100 WBC (Bld) 2.4 % Normal 0.9-7.0 [facility] Comment on above: Performed By: #### C BC #### [facility] [address] [place] [address] Dr. Josef Fraire Erythrocyte distribution width (RBC) [Ratio] 13.9 % Normal 11.0-15.0 [facility] Comment on above: Performed By: #### C BC #### [facility] [address] [place] [address] Dr. Josef Fraire Hematocrit (Bld) [Volume fraction] 44.7 % Normal 36.0-48.0 [facility] Comment on above: Performed By: #### C BC #### [facility] [address] [place] [address] Dr. Josef Fraire Hemoglobin (Bld) [Mass/Vol] 14.4 g/dL Normal 12.0-16.0 [facility] Comment on above: Performed By: #### C BC #### [facility] [address] [place] [address] Dr. Josef Fraire IG # 0.03 10e3/ul Normal 0.00-0.03 [facility] Comment on above: Performed By: #### C BC #### [facility] [address] [place] [address] Dr. Josef Fraire IG % 0.4 % Normal 0.0-0.5 [facility] Comment on above: Performed By: #### C BC #### [facility] [address] [place] [address] Dr. Josef Fraire LYMPH # 2.0 103/ul Normal 1.2-3.8 [facility] Comment on above: Performed By: #### C BC #### [facility] [address] [place] [address] Dr. Josef Fraire Lymphocytes/100 WBC (Bld) 25.1 % Normal 20.5-60.0 [facility] Comment on above: Performed By: #### C BC #### [facility] [address] [place] [address] Dr. Josef Fraire MANUAL DIFF REQ NO Normal [facility] Comment on above: Performed By: #### C BC #### [facility] [address] [place] [address] Dr. Josef Fraire MCH (RBC) [Entitic mass] 29.9 pg Normal 26.7-34.0 [facility] Comment on above: Performed By: #### C BC #### [facility] [address] [place] [address] Dr. Josef Fraire MCHC (RBC) [Mass/Vol] 32.2 g/dL Normal 29.9-35.2 [facility] Comment on above: Performed By: #### C BC #### [facility] [address] [place] [address] Dr. Josef Fraire MCV (RBC) [Entitic vol] 92.7 fL Normal 81.0-99.0 [facility] Comment on above: Performed By: #### C BC #### [facility] [address] [place] [address] Dr. Josef Fraire MONO # 0.5 103/ul Normal 0.3-0.8 [facility] Comment on above: Performed By: #### C BC #### [facility] [address] [place] [address] Dr. Josef Fraire Monocytes/100 WBC (Bld) 6.6 % Normal 1.7-12.0 [facility] Comment on above: Performed By: #### C BC #### [facility] [address] [place] [address] Dr. Josef Fraire NEUT # 5.1 103/ul Normal 1.4-6.5 [facility] Comment on above: Performed By: #### C BC #### [facility] [address] [place] [address] Dr. Josef Fraire Neutrophils/100 WBC (Bld) 65.0 % Normal 43.0-75.0 [facility] Comment on above: Performed By: #### C BC #### [facility] [address] [place] [address] Dr. Josef Fraire Platelet mean volume (Bld) [Entitic vol] 11.9 fL Normal 9.5-13.5 [facility] Comment on above: Performed By: #### C BC #### [facility] [address] [place] [address] Dr. Josef Fraire PLT 217 103/ul Normal 150-450 [facility] Comment on above: Performed By: #### C BC #### [facility] [address] [place] [address] Dr. Josef Fraire RBC 4.82 106/ul Normal 4.20-5.40 [facility] Comment on above: Performed By: #### C BC #### [facility] [address] [place] [address] Dr. Josef Fraire WBC 7.9 103/ul Normal 4.0-11.0 [facility] Comment on above: Performed By: #### C BC #### [facility] [address] [place] [address] Dr. Josef Fraire FERRITINon 10-13-2021 Ferritin [Mass/Vol] 56.0 ng/mL Normal 8.0-252.0 [facility] Comment on above: Performed By: #### F ERR #### [facility] [address] [address] [address] Josef Fraire LIPID PROFILEon 10-13-2021 CHOL-HDL RATIO NORM SEE BELOW Normal [facility] Comment on above: Result Comment: 3.3 - 4.4 LOW RISK 4.4 - 7.1 AVERAGE RISK 7.1 - 11.0 MODERATE RISK >11.0 HIGH RISK Performed By: #### L IPID, CMP #### [facility] [address] [address] [address] Josef Fraire Cholesterol [Mass/Vol] 156 mg/dL Normal <=200 [facility] Comment on above: Performed By: #### L IPID, CMP #### [facility] [address] [address] [address] Josef Fraire Cholesterol in HDL [Mass/Vol] 53 mg/dL Normal 40-60 [facility] Comment on above: Performed By: #### L IPID, CMP #### [facility] [address] [address] [address] Josef Fraire Cholesterol in LDL [Mass/Vol] 85.0 mg/dL Normal [facility] Comment on above: Performed By: #### L IPID, CMP #### [facility] [address] [address] [address] Josef Fraire Cholesterol.total/Chol esterol in HDL [Mass ratio] 2.9 {ratio} Normal [facility] Comment on above: Performed By: #### L IPID, CMP #### [facility] [address] [address] [address] Josef Fraire HDL NORMAL > or = 60 mg/dl - LO W CARDIOVASCULAR RISK <40 mg/dl - HIGH CARDIOVASCULAR RISK Normal [facility] Comment on above: Performed By: #### L IPID, CMP #### [facility] [address] [address] [address] Josef Fraire LDL CALC NORMAL SEE BELOW Normal [facility] Comment on above: Result Comment: <100 mg/dl OPTIMAL 100 - 129 mg/dl NEAR OR ABOVE OPTIMAL 130 - 159 mg/dl BORDERLINE HIGH 160 - 189 mg/dl HIGH >190 mg/dl VERY HIGH Performed By: #### L IPID, CMP #### [facility] [address] [address] [address] Josef Fraire Triglyceride [Mass/Vol] 90 mg/dL Normal <=150 [facility] Comment on above: Performed By: #### L IPID, CMP #### [facility] [address] [address] [address] Josef Fraire VLDL CALC 18.0 mg/dL Normal [facility] Comment on above: Performed By: #### L IPID, CMP #### [facility] [address] [address] [address] Josef Fraire PROF 14(COMP METB)on 022 Albumin [Mass/Vol] 3.5 g/dL Normal 3.4-5.0 [facility] Comment on above: Performed By: #### L IPID, CMP #### [facility] [address] [address] [address] Josef Fraire Albumin/Globulin [Mass ratio] 1.0 {ratio} Normal [facility] Comment on above: Performed By: #### L IPID, CMP #### [facility] [address] [address] [address] Josef Fraire ALP [Catalytic activity/Vol] 90 U/L Normal 46-116 [facility] Comment on above: Performed By: #### L IPID, CMP #### [facility] [address] [address] [address] Josef Fraire ALT [Catalytic activity/Vol] 25 U/L Normal 14-59 [facility] Comment on above: Performed By: #### L IPID, CMP #### [facility] [address] [address] [address] Josef Fraire Anion gap [Moles/Vol] 9.0 mmol/L Normal [facility] Comment on above: Performed By: #### L IPID, CMP #### [facility] [address] [address] [address] Josef Fraire AST [Catalytic activity/Vol] 17 U/L Normal 15-37 [facility] Comment on above: Performed By: #### L IPID, CMP #### [facility] [address] [address] [address] Josef Fraire Bilirubin [Mass/Vol] 0.4 mg/dL Normal 0.2-1.0 [facility] Comment on above: Performed By: #### L IPID, CMP #### [facility] [address] [address] [address] Josef Fraire Calcium [Mass/Vol] 9.1 mg/dL Normal 8.5-10.1 [facility] Comment on above: Performed By: #### L IPID, CMP #### [facility] [address] [place] [address] Dr. Josef Fraire Chloride [Moles/Vol] 105 mmol/L Normal 98-107 [facility] Comment on above: Performed By: #### L IPID, CMP #### [facility] [address] [place] [address] Dr. Josef Fraire CO2 [Moles/Vol] 27.9 mmol/L Normal 21.0-32.0 [facility] Comment on above: Performed By: #### L IPID, CMP #### [facility] [address] [place] [address] Dr. Josef Fraire Creatinine [Mass/Vol] 0.78 mg/dL Normal 0.55-1.02 [facility] Comment on above: Performed By: #### L IPID, CMP #### [facility] [address] [place] [address] Dr. Josef Fraire EGFR-AF BRAZILIAN >60 Normal >=60 [facility] Comment on above: Performed By: #### L IPID, CMP #### [facility] [address] [place] [address] Dr. Josef Fraire EGFR-NON AF BRAZILIAN >60 Normal >=60 [facility] Comment on above: Performed By: #### L IPID, CMP #### [facility] [address] [place] [address] Dr. Josef Fraire Globulin (S) [Mass/Vol] 3.5 g/dL Normal [facility] Comment on above: Performed By: #### L IPID, CMP #### [facility] [address] [place] [address] Dr. Josef Fraire Glucose [Mass/Vol] 89 mg/dL Normal 74-106 [facility] Comment on above: Performed By: #### L IPID, CMP #### [facility] [address] [place] [address] Dr. Josef Fraire Potassium [Moles/Vol] 4.3 mmol/L Normal 3.5-5.1 [facility] Comment on above: Performed By: #### L IPID, CMP #### [facility] [address] [place] [address] Dr. Josef Fraire Protein [Mass/Vol] 7.0 g/dL Normal 6.4-8.2 [facility] Comment on above: Performed By: #### L IPID, CMP #### [facility] [address] [place] [address] Dr. Josef Fraire Sodium [Moles/Vol] 140 mmol/L Normal 136-145 [facility] Comment on above: Performed By: #### L IPID, CMP #### [facility] [address] [place] [address] Dr. Josef Fraire Urea nitrogen [Mass/Vol] 8.0 mg/dL Normal 7.0-18.0 [facility] Comment on above: Performed By: #### L IPID, CMP #### [facility] [address] [place] [address] Dr. Josef Fraire Urea nitrogen/Creatinine [Mass ratio] 10.2 mg/mg Normal [facility] Comment on above: Performed By: #### L IPID, CMP #### [facility] [address] [place] [address] Dr. Josef Fraire Vital Signs Date Time Vital Sign Value Performing Clinician Facility 07-11-2023 12:38-0500 Body height 157.5 cm Jolly Smith MD Work Phone: [facility] 07-11-2023 12:38-0500 Body mass index (BMI) [Ratio] 25.97 kg/m2 Jolly Smith MD Work Phone: [facility] 07-11-2023 12:38-0500 Body weight 64.41 kg Jolly Smith MD Work Phone: [facility] 07-11-2023 12:38-0500 Diastolic blood pressure 76 mm[Hg] Jolly Smith MD Work Phone: [facility] 07-11-2023 12:38-0500 Heart rate 60 /min Jolly Smith MD Work Phone: [facility] 07-11-2023 12:38-0500 Systolic blood pressure 124 mm[Hg] Jolly Smith MD Work Phone: [facility] 06-23-2023 11:39-0500 Diastolic blood pressure 72 mm[Hg] Jolly Smith MD Work Phone: [facility] 06-23-2023 11:39-0500 Systolic blood pressure 110 mm[Hg] Jolly Smith MD Work Phone: [facility] 06-23-2023 10:49-0500 Heart rate 64 /min Jolly Smith MD Work Phone: [facility] 06-23-2023 10:48-0500 Body height 157.5 cm Jolly Smith MD Work Phone: [facility] 06-23-2023 10:48-0500 Body mass index (BMI) [Ratio] 26.34 kg/m2 Jolly Smith MD Work Phone: [facility] 06-23-2023 10:48-0500 Body weight 65.32 kg Jolly Smith MD Work Phone: [facility] 11-22-2022 09:10-0400 Body height 160.02 cm Gracia Ramsey [facility] 11-22-2022 09:10-0400 Body mass index (BMI) [Ratio] 25.98 kg/m2 Gracia Kacy Other [facility] 11-22-2022 09:10-0400 Body temperature 97.8 [degF] Gracia Woodruff Other [facility] 11-22-2022 09:10-0400 Body weight 66.54 kg Gracia Kacy Other [facility] 11-22-2022 09:10-0400 Diastolic blood pressure 56 mm[Hg] Gracia Woodruff Other [facility] Other 11-22-2022 09:10-0400 Respiratory rate 18 /min Graciaarturo Woodruff Other [facility] Other 11-22-2022 09:10-0400 SaO2% (BldA) [Mass fraction] 95 % Gracia Kacy Other [facility] 11-22-2022 09:10-0400 Systolic blood pressure 148 mm[Hg] Gracia Woodruff Other [facility] 12-23-2021 14:20-0400 Diastolic blood pressure 64 mm[Hg] DO Gume HyGoodwall Work Phone: [facility] 12-23-2021 14:20-0400 Heart rate 71 /min DO Gume Hykes Work Phone: [facility] 12-23-2021 14:20-0400 Respiratory rate 16 /min DO Gume Hykes Work Phone: [facility] 12-23-2021 14:20-0400 SaO2% (BldA) [Mass fraction] 96 % DO Gume Hykes Work Phone: [facility] 12-23-2021 14:20-0400 Systolic blood pressure 122 mm[Hg] DO Gume Hykes Work Phone: [facility] 12-23-2021 12:12-0400 Body height 157.48 cm DO Gume Hykes Work Phone: [facility] 12-23-2021 12:12-0400 Body mass index (BMI) [Ratio] 27 kg/m2 DO Gume Hykes Work Phone: [facility] 12-23-2021 12:12-0400 Body weight 67 kg DO Gume Hykes Work Phone: [facility] 12-23-2021 11:11-0400 Body temperature 97.9 [degF] DO Gume Hykes Work Phone: [facility] 11-05-2021 13:50-0400 Diastolic blood pressure 64 mm[Hg] DO Gume Hykes Work Phone: [facility] 11-05-2021 13:50-0400 Heart rate 77 /min DO Gume Hykes Work Phone: [facility] 11-05-2021 13:50-0400 Respiratory rate 16 /min DO Gume Hykes Work Phone: [facility] 11-05-2021 13:50-0400 SaO2% (BldA) [Mass fraction] 97 % DO Gume Hykes Work Phone: [facility] 11-05-2021 13:50-0400 Systolic blood pressure 118 mm[Hg] DO Gume Hykes Work Phone: [facility] 11-05-2021 12:49-0400 Body height 160.02 cm DO Gume Hykes Work Phone: [facility] 11-05-2021 12:49-0400 Body mass index (BMI) [Ratio] 25.3 kg/m2 DO Gume Ziegler Work Phone: [facility] 11-05-2021 12:49-0400 Body temperature 98.2 [degF] DO Gume Ziegler Work Phone: [facility] 11-05-2021 12:49-0400 Body weight 64.86 kg DO Gume Ziegler Work Phone: [facility] 05-06-2021 10:45-0500 Body height 160.02 cm Dede Calvrene Other [facility] 05-06-2021 10:45-0500 Body mass index (BMI) [Ratio] 25.74 kg/m2 Dede Calvey Other [facility] 05-06-2021 10:45-0500 Body weight 65.91 kg Dede Calvey Other [facility] 04-08-2021 15:15-0500 Body height 160.02 cm Dede Calvey Other [facility] 04-08-2021 15:15-0500 Body mass index (BMI) [Ratio] 25.33 kg/m2 Dede Calvey Other [facility] Other 04-08-2021 15:15-0500 Body weight 64.86 kg Dede Calvey Other [facility] Other Encounters Encounter Date Encounter Type Care Provider Facility Start: 01-09-2024 End: 01-09-2024 ambulatory [facility] Start: 09-27-2023 End: 09-27-2023 ambulatory SHAIKH ASHLEY Not Available Start: 07-14-2023 Clinisync Result Encounter Generic External Data Provider [facility] External [facility] Unsolicited Start: 07-14-2023 Clinisync Result Encounter Generic External Data Provider [facility] External Department Unsolicited Start: 07-11-2023 End: 07-11-2023 Office outpatient visit 25 minutes Jolly Smith MD Work Phone: [facility] Comment on above: 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 (Primary Dx); Atrial 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, unspecified type (CMS/HCC); Gastroesophageal reflux disease, unspecified whether esophagitis present; Paroxysmal atrial 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 (CMS/HCC); Primary hypertension; Mixed hyperlipidemia; Hypercoagulable state due to 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 (CMS/HCC); Current every day smoker; Encounter to discuss test results Start: 07-11-2023 End: 07-11-2023 ambulatory [facility] Start: 07-07-2023 End: 07-08-2023 ambulatory [facility] Start: 07-07-2023 End: 07-07-2023 Subsequent hospital visit by physician Florencia Cordero [facility] Start: 06-29-2023 End: 06-29-2023 ambulatory SHAIKH ASHLEY Not Available Start: 06-23-2023 End: 06-23-2023 Office outpatient new 45 minutes Jolly Smith MD Work Phone: [facility] Comment on above: Atrial 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, unspecified type (CMS/HCC); Current every day smoker; Gastroesophageal reflux disease, unspecified whether esophagitis present; Hypercoagulable state due to 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 (CMS/HCC); [facility] current use of anticoagulant therapy; Hyperlipidemia, unspecified hyperlipidemia type; Chest pain, unspecified type; Primary hypertension; Paroxysmal atrial 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 (CMS/HCC) Start: 06-23-2023 End: 06-23-2023 ambulatory [facility] Start: 06-01-2023 End: 06-01-2023 ambulatory SHAIKH ASHLEY Not Available Start: 05-17-2023 End: 05-17-2023 ambulatory SHAIKH ÁNGELWLAURA Not Available Start: 05-17-2023 Patient encounter procedure Generic Provider [facility] Start: 11-22-2022 End: 11-22-2022 ambulatory Gracia Woodruff Other [facility] Start: 11-22-2022 Office outpatient vi sit 15 minutes Gracia Woodruff [facility] Start: 09-13-2022 ambulatory Facility:[facility] Start: 04-07-2022 End: 04-08-2022 ambulatory ROONEY H FAWWAD Facility:[facility] Start: 01-28-2022 End: 01-28-[address] YORDAN BAÑUELOS Facility:[facility] Start: 01-27-2022 End: 01-28-2022 ambulatory ROONEY H FAWWAD Facility:[facility] Start: 01-18-2022 End: 01-19-2022 ambulatory ROONEY H FAWWAD Facility:[facility] Start: 12-23-2021 End: 12-23-2021 ambulatory Rooney Fawwad Facility:[facility] Start: 12-23-2021 End: 12-23-2021 Admission to same day surgery center DO Gume Ziegler Work Phone: [facility] [place] Start: 12-21-2021 End: 12-21-2021 ambulatory Rooney Fawwad Facility:[facility] Start: 12-21-2021 End: 12-21-2021 Patient encounter procedure DO Gume Geoffphilippe Work Phone: [facility] Start: 12-11-2021 End: 12-11-2021 ambulatory Rooney Fawwad Facility:[facility] Start: 12-11-2021 End: 12-11-2021 Patient encounter procedure DO Gume Ziegler Work Phone: [facility] Start: 12-09-2021 End: 12-09-2021 ambulatory Gume Ziegler Other [facility] Other Start: 12-09-2021 Telephone encounter Gume Ziegler [facility] Start: 11-27-2021 End: 11-27-2021 ambulatory Gume Ziegler Other [facility] Other Start: 11-27-2021 Telephone encounter Gume DE SANTIAGO [facility] Start: 11-09-2021 End: 11-09-2021 ambulatory Gume Ziegler Other [facility] Other Start: 11-09-2021 Telephone encounter Gume DE SANTIAGO [facility] Start: 11-05-2021 End: 11-05-2021 ambulatory Gume Ziegler Facility:[facility] Start: 11-05-2021 End: 11-05-2021 Admission to same day surgery center DO Gume Ziegler Work Phone: [facility] Start: 11-03-2021 End: 11-03-2021 ambulatory Gume Ziegler Facility:[facility] Start: 11-03-2021 End: 11-03-2021 Patient encounter procedure DO Gume Ziegler Work Phone: [facility] Start: 10-28-2021 End: 10-28-2021 ambulatory Gume Ziegler Other [facility] Other Start: 10-28-2021 Telephone encounter Gume DE SANTIAGO [facility] Start: 10-27-2021 End: 10-28-2021 ambulatory ROONEY Erika ASHLEY Facility:[facility] Start: 10-13-2021 End: 10-14-2021 ambulatory ROONEY H FAMARKUSD Facility:[facility] Start: 05-06-2021 End: 05-06-2021 ambulatory Dede Garcia Other [facility] Other Start: 05-06-2021 Office outpatient vi sit 10 minutes Dede Garcia [facility] Start: 04-14-2021 End: 04-14-2021 ambulatory Jaime Paulino Other [facility] Other Start: 04-14-2021 Telephone encounter Jaime Paulino [facility] Start: 04-08-2021 End: 04-08-2021 ambulatory Dede Garcia Other [facility] Other Start: 04-08-2021 Office outpatient vi sit 15 minutes Dede Garcia [facility] Start: 03-11-2021 Office outpatient vi sit 15 minutes Dede Garcia [facility] Procedures Date Procedure Procedure Detail Performing Clinician Start: 07-14-2023 ALL CBC WITH AUTO DIFF Generic External Data Provider Start: 07-11-2023 FOLLOW UP IN CARDIOLOGY JOLLYTULIO RENNERAN Start: 07-07-2023 NUCLEAR STRESS TEST DOREEN SMITH Start: 07-07-2023 Cv strs tst xers&/or rx cont ecg trcg only Jolly Smith MD Work Phone: Start: 06-23-2023 CBC panel - Blood by Automated count JOLLY SMITH Start: 06-23-2023 Comprehensive metabo lic 2000 panel - Serum or Plasma JOLLYTULIO SMITH Start: 06-23-[address] [facility] Start: 06-23-2023 Thyrotropin [Units/v olume] in Serum or Plasma JOLLYTULIO SMITH Start: 06-23-2023 THYROXINE, FREE JOLLYTULIO SMITH Start: 06-23-2023 TRIIODOTHYRONINE, TOTAL JOLLYTULIO SMITH Start: 06-23-2023 ECG 12-LEAD [facility] Start: 06-23-2023 Ecg routine ecg w/le ast 12 lds w/i&r Jolly Smith MD Work Phone: Start: 01-28-2023 Mammography Generic Pr ovider Start: 12-23-2021 Hemorrhoidectomy DO Wes chad Toney Work Phone: Start: 11-05-2021 Diagnostic endoscopi c examination on colon DO Gume Ziegler Work Phone: Start: 11-02-2021 Colonoscopy Generic Pr ovider SARS Antigen (LFIA) DO Gume Ziegler Work Phone: Plan of Treatment Date Care Activity Detail Author Start: 11-03-2031 Screening for malign ant neoplasm of colon [facility] Start: 08-29-2031 DTaP/Tdap/Td Vaccine s (2 - Td or Tdap) DTaP/Tdap/Td Vaccines (2 - Td or Tdap) [facility] Start: 07-19-2024 End: 07-19-2024 Patient encounter procedure 07/19/2024 9:30 AM EST Office Visit [facility] [address] [facility] [address] [place] [phone] Jolly Smith MD [address] [place] [address] [address] [place], [place] [id number] [facility] Start: 05-17-2024 Medicare Annual Well ness (AWV) Medicare Annual Wellness (AWV) [facility] Start: 01-29-2024 Screening for malign ant neoplasm of breast [facility]ammogram [facility] Start: 01-09-2024 End: 01-09-2024 Patient encounter procedure 01/09/2024 8:00 AM EDT Office Visit [place] [id number] [facility] [address] [place] [address] Richardson Rincon, [employer] SAFETY MANAGER [address] [facility] [address] [place], [place] [id number] [facility] Start: 09-27-2023 End: 09-27-2023 Patient encounter procedure 09/27/2023 9:15 AM EDT Office Visit [facility] [address] [place] [phone] Shaikh Ramirez MD [address] [place] [id number] [facility] Start: 07-11-2023 End: 07-11-2024 CBC panel - Blood by Automated count CBC Lab Routine Atrial 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, unspecified type (CMS/HCC) Primary hypertension Expected: 07/11/2023 (Approximate), Expires: 07/11/2024 [facility] Service Area Work Phone: Comment on above: Expected: 07/11/2023 (Approximate), Expires: 07/11/2024 Start: 07-11-2023 End: 07-11-2024 Comprehensive metabolic 2000 panel - Serum or Plasma Comprehensive Metabolic Panel Lab Routine Atrial 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, unspecified type (CMS/HCC) Primary hypertension Expected: 07/11/2023 (Approximate), Expires: 07/11/2024 [facility] Work Phone: Comment on above: Expected: 07/11/2023 (Approximate), Expires: 07/11/2024 Start: 07-11-2023 End: 07-11-2024 Lipid 1996 panel - Serum or Plasma Lipid Panel Lab Routine Mixed hyperlipidemia Expected: 07/11/2023 (Approximate), Expires: 07/11/2024 [facility] Work Phone: Comment on above: Expected: 07/11/2023 (Approximate), Expires: 07/11/2024 Start: 07-11-2023 End: 07-11-2023 Patient encounter procedure 07/11/2023 12:30 PM EST Office Visit [address] [place] [phone] Jolly Smith MD [address] [place] [address] [address] [place] [address] [facility] Start: 07-07-2023 End: 07-07-2023 Patient encounter procedure 07/07/2023 2:15 PM EST Appointment [address] [place] [id number] [facility] Start: 07-07-2023 End: 07-07-2023 Patient encounter procedure [facility] Start: 06-23-2023 End: 06-23-2024 CBC panel - Blood by Automated count CBC Lab Routine Hyperlipidemia, unspecified hyperlipidemia type Chest pain, unspecified type Primary hypertension Paroxysmal atrial 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 (CMS/HCC) Expected: 06/23/2023 (Approximate), Expires: 06/23/2024 [facility] Work Phone: Comment on above: Expected: 06/23/2023 (Approximate), Expires: 06/23/2024 Start: 06-23-2023 End: 06-23-2024 Comprehensive metabolic 2000 panel - Serum or Plasma Comprehensive Metabolic Panel Lab Routine Hyperlipidemia, unspecified hyperlipidemia type Chest pain, unspecified type Primary hypertension Paroxysmal atrial 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 (CMS/HCC) Expected: 06/23/2023 (Approximate), Expires: 06/23/2024 [facility] Work Phone: Comment on above: Expected: 06/23/2023 (Approximate), Expires: 06/23/2024 Start: 06-23-2023 End: 06-23-2024 Lipid 1996 panel - Serum or Plasma Lipid Panel Lab Routine Hyperlipidemia, unspecified hyperlipidemia type Chest pain, unspecified type Primary hypertension Paroxysmal atrial 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 (CMS/HCC) Expected: 06/23/2023 (Approximate), Expires: 06/23/2024 [facility] Work Phone: Comment on above: Expected: 06/23/2023 (Approximate), Expires: 06/23/2024 Start: 06-23-2023 End: 06-23-2025 NM Heart Perfusion W stress and W radionuclide IV Nuclear Stress Test Cardiac Nuclear Medicine Routine Hypercoagulable state due to 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 (CMS/HCC) [facility] current use of anticoagulant therapy Hyperlipidemia, unspecified hyperlipidemia type Chest pain, unspecified type Primary hypertension Paroxysmal atrial 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 (CMS/HCC) Expected: 06/23/2023 (Approximate), Expires: 06/23/2025 [facility] Service Area Work Phone: Comment on above: Expected: 06/23/2023 (Approximate), Expires: 06/23/2025 Start: 06-23-2023 End: 06-23-2024 Thyrotropin [Units/volume] in Serum or Plasma Thyroid Stimulating Hormone Lab Routine Hyperlipidemia, unspecified hyperlipidemia type Chest pain, unspecified type Primary hypertension Paroxysmal atrial 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 (CMS/HCC) Expected: 06/23/2023 (Approximate), Expires: 06/23/2024 [facility] Work Phone: Comment on above: Expected: 06/23/2023 (Approximate), Expires: 06/23/2024 Start: 06-23-2023 End: 06-23-2024 Thyroxine (T4) free [Mass/volume] in Serum or Plasma Thyroxine, Free Lab Routine Hyperlipidemia, unspecified hyperlipidemia type Chest pain, unspecified type Primary hypertension Paroxysmal atrial 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 (CMS/HCC) Expected: 06/23/2023 (Approximate), Expires: 06/23/2024 [facility] Work Phone: Comment on above: Expected: 06/23/2023 (Approximate), Expires: 06/23/2024 Start: 06-23-2023 End: 06-23-2024 Triiodothyronine (T3) [Mass/volume] in Serum or Plasma Triiodothyronine, Total Lab Routine Hyperlipidemia, unspecified hyperlipidemia type Chest pain, unspecified type Primary hypertension Paroxysmal atrial 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 (CMS/HCC) Expected: 06/23/2023 (Approximate), Expires: 06/23/2024 [facility] Work Phone: Comment on above: Expected: 06/23/2023 (Approximate), Expires: 06/23/2024 Start: 01-28-2023 COVID-19 Vaccine ( season) COVID-19 Vaccine ( season) [facility] Start: 12-23-2021 [facility] Work Phone: Start: 12-23-2021 [facility] Work Phone: Start: 11-05-2021 [facility] Work Phone: Start: 01-06-2020 Pneumococcal Vaccine : 65+ Years (2 - PPSV23 or PCV20) Pneumococcal Vaccine: 65+ Years (2 - PPSV23 or PCV20) [facility] Start: 1991 Screening for malign ant neoplasm of breast Mammogram [facility] Start: 09-10-1969 Diabetes mellitus screening Diabetes Screening [facility] Start: 09-10-1969 Hepatitis C screening Hepatitis C [facility] Start: 1950 Lipid panel Lipid Panel [facility] Start: 1950 Medicare Annual Well ness Visit Medicare Annual Wellness Visit (AWV) [facility] Start: 1950 Screening for malign ant neoplasm of colon [facility] Start: 1950 Screening for osteoporosis Bone Density Scan [facility] Patient Education Hemorrhoids Diverticulosis Dicyclomine [facility] Work Phone: Immunizations Immunization Date Immunization Notes Care Provider Ángel kulkarni 02-09-2023 Influenza, Seasonal, Quadrivalent, Adjuvanted Generic Provider [facility] 02-08-2022 Influenza, High-dose Seasonal, Quadrivalent, Preservative Free [facility] 12-15-2021 zoster vaccine recombinant Generic Provider [facility] 10-15-2021 zoster vaccine recombinant Generic Provider [facility] 08-28-2021 COVID-19 mRNA-1273 (Moderna) DO Gume Ziegler Work Phone: [facility] 08-28-2021 tetanus toxoid, reduced diphtheria toxoid, and acellular pertussis vaccine, adsorbed Generic [facility] 04-22-2021 COVID-19 mRNA-1273 (Moderna) DO Gume Ziegler Work Phone: [facility] 03-11-2021 Kenalog -40 mg Dede Calve y Other [facility] Other 02-10-2021 Influenza, High-dose Seasonal, Quadrivalent, Preservative Free Generic Provider [facility] 09-25-2020 COVID-19 mRNA-1273 (Moderna) DO Gume Ziegler Work Phone: [facility] 08-28-2020 COVID-19 mRNA-1273 (Moderna) DO Gume Ziegler Work Phone: [facility] 02-22-2020 influenza, high dose seasonal, preservative-free Generic Provider [facility] 12-31-2019 Kenalog -40 mg Dede Calve y Other [facility] Other 11-11-2019 pneumococcal conjuga te vaccine, 13 valent Generic Provider [facility] 04-23-2019 Kenalog -40 mg Dede Calve y Other [facility] Other 02-24-2017 pneumococcal conjuga te vaccine, 13 valent Generic Provider [facility] Payers Date Payer Category Payer Unknown [id number] 2021 Self-pay [id number] 2021 Medicare [id number] 1958 Medicare [id number] 2. [id number] 1950 Unknown [id number] 2.16.84 0.1.389270.3.579.2.593 1950 Unknown [id number] 2.16.84 0.1.234285.3.579.2.593 1950 Unknown [id number] 2.16.84 0.1.328247.3.579.2.593 1950 Unknown [id number] 2.16.84 0.1.648877.3.579.2.593 1951 Unknown [id number] 2.16.84 0.1.635851.3.579.2.593 1951 Unknown [id number] 2.16.84 0.1.573604.3.579.2.593 1951 Unknown [id number] 2.16.84 0.1.261142.3.579.2.1246 1951 Unknown [id number] 2.16.84 0.1.149931.3.579.2.1246 1951 Unknown [id number] 2.16.84 0.1.210264.3.579.2.1246 1951 Unknown [id number] 2.16.84 0.1.342111.3.579.2.1246 1951 Unknown [id number] 2.16.84 0.1.441465.3.579.2.1246 1951 Unknown [id number] 2.16.84 0.1.182682.3.579.2.9 1951 Unknown [id number] 2.16.84 0.1.489623.3.579.2.1259 1951 Unknown [id number] 2.16.840 .1.285677.3.579.2.1258 1951 Unknown [id number] 2.16.840 .1.538050.3.579.2.1258 1951 Unknown [id number] 2.16.8 40.1.586696.3.579.2.4 1950 Unknown [id number] 2.16.8 40.1.931490.3.579.2.1243 1950 Unknown [id number] 2.16.8 40.1.412317.3.579.2.1244 Medicare [id number] 2.1 6.840.1.313943.19 Unknown [id number] 2. 16.840.1.811015.19 Unknown [id number] 2.16.8 40.1.984050.3.579.2.531 Unknown [id number] 2.16.8 40.1.398865.3.579.2.531 Unknown [id number] 2.16.8 40.1.236747.3.579.2.531 Unknown [id number] 2.16.8 40.1.866175.3.579.2.531 Unknown [id number] 2.16.8 40.1.119672.3.579.2.531 Social History Date Type Detail Facility Unknown if ever smoked [facility] Other Start: 06-23-2023 End: 06-29-2023 Sex Assigned At [employer] Other Start: 12-23-2021 [facility] Start: 1950 Sex Assigned At Female F [facility] Start: 06-23-2023 [facility] History of tobacco use Cigarette Smoker U [facility] Work Phone: Start: 06-23-2023 End: 06-29-2023 Cigarettes smoked current (pack per day) - Reported 0.3 [facility] Work Phone: Start: 06-01-2023 End: 06-23-2023 Tobacco use and exposure Smokeless tobacco non-user [facility] Work Phone: Start: 06-23-2023 End: 06-29-2023 Alcohol intake Lifetime non-drinker (finding) [facility] Work Phone: Start: 1950 Sex Assigned At Not on file [facility] Work Phone: Start: 06-13-2023 End: 07-11-2023 Exposure to SARS-CoV-2 (event) Not sure [facility] Start: 06-01-2023 Tobacco smoking stat [facility] Occasional tobacco smoker [facility] Start: 04-29-2023 [...] platelets 2 60,000. Reviewed results of the [employer] Myoview. Objective Failed to redirect to the Timeline version of the [facility] SmartLink. Wt Readings from Last 3 Encounters: [...] results 07/11/2023 Current every day smoker 06/23/2023 [facility] current use of anticoagulant therapy 06/23/2023 Primary hypertension 06/23/2023 GERD (gastroesophageal reflux disease) 06/23/2023 Chest pain 06/23/2023 Hyperlipidemia 06/23/2023 Hypercoagulability due to atrial 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 (CMS/HCC) 06/23/2023 Paroxysmal atrial 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 (CMS/HCC) 06/23/2023 Assessment: 1. [facility] current use of anticoagulant therapy 2. Atrial [...] cessation Follow up : 6 months with Richardson Rincon NP, 1 year with me. Comprehensive [...] discussion and plan. documented in this encounter [facility] Work Phone: 07-11-2023 Instructions Merry Wilkerson [...] of your visit. documented in this encounter [facility] Work Phone: 06-23-2023 History of Present illness Narrative Referred by for Establish Care and Atrial Fibrillation (Onset new afib) History Of Present Illness: Cydney Villa is a 72 y.o. female presenting with history of atrial 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. Prior records reviewed, patient presented to Dr. Correa with palpitations. A Holter showed 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. [id number] score 3 placed on metoprolol and Eliquis [...] 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 (CMS/HCC) - Nuclear Stress Test; Future [facility] current use of anticoagulant therapy - Nuclear [...] probably not pathologic, followed by primary care [id number] score 3 Postmenopausal female with several risk [...] Jolly Smith MD. documented in this encounter [facility] Work Phone: 06-23-2023 Instructions Alex Hawley [...] in office today documented in this encounter [facility] Work Phone: 11-22-2022 Evaluation note Encounter [...] sooner if significantly worsening or changing appearance. 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) [facility] Other Evaluation noteNo InformationNort [employer] Other Evaluation note* Diagnosis Onset Date Resolution Status Abdominal pain acute Blood in stool [facility] Work Phone: Evaluation note* Diagnosis Atrial 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, unspecified type (CMS/HCC) Current every day smoker Gastroesophageal reflux disease, unspecified whether esophagitis present Hypercoagulable state due to 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 (CMS/HCC) [facility] current use of anticoagulant therapy Hyperlipidemia, unspecified hyperlipidemia type Chest pain, unspecified type Primary hypertension Unspecified essential hypertension Paroxysmal atrial 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 (CMS/HCC) Atrial 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 documented in this encounter [facility] Work Phone: Evaluation note* Diagnosis [facility] current use of anticoagulant therapy- Primary Atrial 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, unspecified type (CMS/HCC) Gastroesophageal reflux disease, unspecified whether esophagitis present Paroxysmal atrial 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 (CMS/HCC) Atrial 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 Primary hypertension Unspecified essential hypertension Mixed hyperlipidemia Hypercoagulable state due to 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 (CMS/HCC) Current every day smoker Encounter to discuss test results Other specified counseling documented in this encounter [facility] Work Phone: History general Narrative - Reported* Type Description Date Medical History GERD Medical History PUD Medical History hyperlipidemia Medical History diverticulosis Medical History colon polyps Surgical History HYSTERECTOMY Surgical History APPENDECTOMY Surgical History HEMRRHOIDECTOMY 01/16/21 Hospitalization History SEE SURGERIES [facility] Other Reason for referral (narrative)* Consultation (Routine) - Authorized Specialty Diagnoses / Procedures Referred By Contac t Referred To Contact Cardiology Diagnoses Atrial 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, unspecified type (CMS/HCC) Paroxysmal atrial 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 (CMS/HCC) Primary hypertension Mixed hyperlipidemia Procedures Follow Up In Cardiology Jolly Smith MD [address] [facility] [address] [place] [address] Richardson Rincon, [employer]TER [employer] DES[employer]HE[employer] AND SAFETY MANAGER [address] [facility] [address] [place] [address] Referral ID Status Reason Start Date Expiration Date V isits Requested Visits Authorized [id number] Authorized 07/11/2023 07/10/2024 1 1 * Consultation (Routine) - Authorized Specialty Diagnoses / Procedures Referred By Contac t Referred To Contact Cardiology Diagnoses Atrial 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, unspecified type (CMS/HCC) Gastroesophageal reflux disease, unspecified whether esophagitis present Paroxysmal atrial 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 (CMS/HCC) Primary hypertension Mixed hyperlipidemia Procedures Follow Up In Cardiology Jolly Smith MD [address] [facility] [address] [place] [address] Jolly Smith MD [address] [facility] [address] [place] [address] Referral ID Status Reason Start Date Expiration Date V isits Requested Visits Authorized [id number] Authorized 07/11/2023 07/10/2024 1 1 [facility] Work Phone: Chief Complaint and Reason [...] state due to 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 (CMS/HCC) [facility] current use of anticoagulant therapy Hyperlipidemia, unspecified hyperlipidemia type Chest pain, unspecified type Primary hypertension Paroxysmal atrial 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 (CMS/HCC) Procedures Nuclear Stress Test [place] CV STRS TST XERS&/OR RX CONT ECG W/SI&R [place] CV STRS TST XERS&/OR RX CONT ECG W/O I&R [place] CV STRS TST XERS&/OR RX CONT ECG TRCG ONLY [place] CV STRS TST XERS&/OR RX CONT ECG I&R ONLY CHG MYOCARDIAL SPECT MULTIPLE STUDIES Jolly Smith MD [address] [place] [address] Referral ID Status Reason Start Date Expiration Date Visits Requested Visits Authorized [id number] Pending Review Perform Procedure 06/23/2023 06/22/2024 5 5 Specialty Diagnoses / Procedures Referred By Contac t Referred To Contact Diagnoses Atrial 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, unspecified type (CMS/HCC) Procedures ECG 12 Lead Jolly Smith MD [address] [place] [address] Referral ID Status Reason Start Date Expiration Date V isits Requested Visits Authorized [id number] Authorized 06/23/2023 06/22/2024 1 1 Specialty Diagnoses / Procedures Referred By Contac t Referred To Contact Cardiology Diagnoses Atrial 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, unspecified type (CMS/HCC) Gastroesophageal reflux disease, unspecified whether esophagitis present Procedures Follow Up In Cardiology Jolly Smith MD [address] [place] [address] Jolly Smith MD [address] [place] [address] Referral ID Status Reason Start Date Expiration Date V isits Requested Visits Authorized [id number] Authorized 06/23/2023 06/22/2024 1 1 Additional Source Comments REASON FOR VISIT (unrecogniz ed section and content) Reason Comments Establish Care Atrial Fibrillation Onset new afib Specialty Diagnoses / Procedures Referred By Contac t Referred To Contact Diagnoses Atrial 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, unspecified type (CMS/HCC) Procedures ECG 12 Lead Jolly Smith MD [address] [place] [address] Referral ID Status Reason Start Date Expiration Date V isits Requested Visits Authorized [id number] Authorized 06/23/2023 06/22/2024 1 1 Specialty Diagnoses / Procedures Referred By Contac t Referred To Contact Cardiology Diagnoses Hypercoagulable state due to 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 (CMS/HCC) [facility] current use of anticoagulant therapy Hyperlipidemia, unspecified hyperlipidemia type Chest pain, unspecified type Primary hypertension Paroxysmal atrial 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 (CMS/HCC) Procedures Nuclear Stress Test [place] CV STRS TST XERS&/OR RX CONT ECG W/SI&R [place] CV STRS TST XERS&/OR RX CONT ECG W/O I&R [place] CV STRS TST XERS&/OR RX CONT ECG TRCG ONLY [place] CV STRS TST XERS&/OR RX CONT ECG I&R ONLY CHG MYOCARDIAL SPECT MULTIPLE STUDIES Jolly Smith MD [address] [facility] [address] [place] [address] Referral ID Status Reason Start Date Expiration Date Visits Requested Visits Authorized [id number] Authorized Perform Procedure 06/23/2023 06/22/2024 5 5 Reason Comments Follow-up Stress results Specialty Diagnoses / Procedures Referred By Contac t Referred To Contact Cardiology Diagnoses Atrial 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, unspecified type (CMS/HCC) Gastroesophageal reflux disease, unspecified whether esophagitis present Procedures Follow Up In Cardiology Jolly Smith MD [address] [address] Jolly Smith MD [address] [facility] [address] [place] [address] Referral ID Status Reason Start Date Expiration Date V isits Requested Visits Authorized [id number] Authorized 06/23/2023 06/22/2024 1 1 Care Teams [...] Shaikh Ashley MD Primary Care Provider 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 Start Date End Date Shaikh Ramirez MD [address] [place] [address] PCP - General Internal Medicine 06/03/23 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 Specialty Start Date End Date Shaikh Ramirez MD [address] [place] [address] PCP - General Internal Medicine 06/03/23 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 Specialty Start Date End Date Shaikh Ramirez MD [address] [place] [address] PCP - General Internal Medicine 06/03/23 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 DATE CREATED AUTHOR AUTHOR'S ORGANIZ ATION 03/25/2023 [facility] DATE CREATED AUTHOR AUTHOR'S ORGANIZ ATION 07/12/2023 [facility] DATE CREATED AUTHOR AUTHOR'S ORGANIZ ATION 12/29/2023 [facility] DATE CREATED AUTHOR AUTHOR'S ORGANIZ ATION 01/10/2024 [facility] FOR RECORDS PERTAINING TO PATIENTS WHO ARE [...] BE BASED ON THE PRIMARY CLINICAL RECORDS. [facility] [employer] [facility]. provides no warranty or guarantee of the accuracy or completeness of information in this document.
[2024-01-31 10:27] LABS: Basophils Absolute Auto 0.1 10^3/uL (0.0-0.1); Basophils Percent Auto 0.6 % (0.2-2.0); Eosinophils Absolute Auto 0.2 10^3/uL (0.0-0.7); Eosinophils Percent Auto 2.1 % (0.9-7.0); Hematocrit 42.6 % (36.0-48.0); Hemoglobin 13.7 g/dL (12.0-16.0); Immature Granulocytes Abs Auto 0.01 10^3/uL (0.00-0.03); Immature Granulocytes Pct Auto 0.1 % (0.0-0.5); Lymphocytes Absolute Auto 2.4 10^3/uL (1.2-3.8); Lymphocytes Percent Auto 25.9 % (20.5-60.0); Mean Corpuscular HGB Conc 32.2 g/dL (29.9-35.2); Mean Corpuscular Hemoglobin 29.8 pg (26.7-34.0); Mean Corpuscular Volume 92.6 fL (81.0-99.0); Mean Platelet Volume 10.9 fL (9.5-13.5); Monocytes Absolute Auto 0.6 10^3/uL (0.3-0.8); Monocytes Percent Auto 6.1 % (1.7-12.0); Neutrophils Absolute Auto 5.9 10^3/uL (1.4-6.5); Neutrophils Percent Auto 65.2 % (43.0-75.0); Platelet Count 218 10^3/uL (150-450); Red Cell Distribution Width 13.6 % (11.0-15.0); White Blood Count 9.1 10^3/uL (4.0-11.0)
[2024-01-31 11:01] LABS: Alanine Aminotransferase 24 U/L (14-59); Albumin Globulin Ratio 1.2; Albumin Level 3.6 g/dL (3.4-5.0); Alkaline Phosphatase 76 U/L (46-116); Anion Gap 12.7; Aspartate Amino Transferase 13 U/L (15-37); BUN Creatinine Ratio 15.8; Bilirubin Total 0.5 mg/dL (0.2-1.0); Calcium 9.3 mg/dL (8.5-10.1); Carbon Dioxide 28.8 mmol/L (21.0-32.0); Chloride 104 mmol/L (98-107); Chol HDL Ratio 2.8; Cholesterol 141 mg/dL (<=200); Estimated GFR (African America >60 (>=60); Estimated GFR (Non-African Ame 58 (>=60); Glucose 84 mg/dL (74-106); HDL Cholesterol 51 mg/dL (40-60); LDL Cholesterol Calculated 72.6 mg/dL; Potassium 4.5 mmol/L (3.5-5.1); Sodium 141 mmol/L (136-145); Total Protein 6.6 g/dL (6.4-8.2); Triglycerides 87 mg/dL (<=150); VLDL CHOLESTEROL 17.4 mg/dL
== END 2024-01-31 10:00 | disposition home or self-care (01) ==
PROVIDERS: Visit Provider Nurse Practitioner
DX: I48.91 Unspecified atrial 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 (principal); E78.2 Mixed hyperlipidemia; Z79.01 Long term (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 anticoagulants
CPT/HCPCS: 36415; 80053; 80061; 85025

== ENCOUNTER 2024-06-12 09:07 | Outpatient (OUT) | payer MEDICARE, SELFPAY ==
--- OUTSIDE RECORDS SUMMARY | 2024-06-12 09:18 | XMS_ITS | CCD ---
Author Organization [facility] Inform ion [facility] Care Team Providers Care Tobacco Educator Name Role Phone Dede Garcia Unavailable Jaime Paulino Unavailable Gume Ziegler Unavailable DO Gume Ziegler Attending Provider MD Nevin Ramirez Primary Care Provider DO Gabriel Qiu Attending Provider [phone] FAWWAD, ROONEY H Admitting Unavailable FAWWAD, [...] Attending Unavailable Gabriel Qiu Admitting Unavailable Fawwad, [facility] Primary Care Unavailable Gabriel Qiu Attending Unavailable Lazarus, Gabriel Admitting Unavailable Gume Ziegler Attending Unavailable Hykes, Gume Stark Admitting Unavailable Fawwad, [facility] Primary Care Unavailable Gume Ziegler Attending Unavailable Hykes, Gume Stark Admitting Unavailable Fawwad, Rooney Primary Care Unavailable Fawwad, [facility] Primary Care Unavailable Gabriel Qiu Attending Unavailable Lazarus, Gabriel Admitting Unavailable Gracia Woodruff Unavailable Ashley LEROY, [facility] Primary Care Provider Ashley LEROY, [facility] Primary Care Provider Ashley LEROY, [facility] Primary Care Provider JOLLY SMITH Attending Unavailable [facility] Primary Care Unavailable JORDAN SMITHA Referring Unavailable JORDAN SMITHA Attending Unavailable SMITH, JOLLY Referring Unavailable [facility] Primary Care Unavailable RICHARDSON RINCON Attending Unavailable SMITH, JOLLY Referring Unavailable [facility] Primary Care Unavailable Candy LEROY, Rocky Primary Care Provider Sonu Connelly NP Unavailable [phone] LLOYD JOLLY Referring Unavailable [facility] Primary Care Unavailable ASHLEY, ROONEY Attending Unavailable [facility] Attending Unavailable SONU CONNELLY Attending Unavailabl e SONU CONNELLY Attending Unavailabl e Allergies Allergy Classification Reported Allergen(s) Allergy Type Date of Onset Reaction(s) Facility (20 sources) Ciprofloxacin; Translations: [CIPROFLOXACIN] Drug Allergy 3 Unknown [facility] (20 sources) Codeine; Translations: [CODEINE] Drug Allergy 2 Unknown [facility] (20 sources) metroNIDAZOLE; Translations: [METRONIDAZOLE] Drug Allergy 2 Unknown [facility] (9 sources) Penicillin V Drug Allergy DataRank Other (3 sources) Cefaclor; Translations: [cefaclor] Drug Allergy 2 Heartburn [facility] (3 sources) Dicyclomine; Translations: [dicyclomine] Drug Allergy 2 [facility] (12 sources) Penicillins; Translations: [Penicillins] Allergy to substance 3 [facility] (1 source) Adhesive agent Drug allergy (disorder) [facility] (1 source) Ciprofloxacin Drug Allergy 4 [facility] (1 source) Codeine Drug Allergy 3 [facility] (1 source) Latex Drug allergy (disorder) [facility] (1 source) NSAIDs Drug allergy (disorder) 3 [facility] (1 source) Codeine Drug Allergy 2 [facility] (1 source) metroNIDAZOLE Drug Allergy 2 [facility] (7 sources) Penicillin G; Translations: [PENICILLIN G] Drug Allergy 4 [facility] Work Phone: Medications Current Medications Medication Drug Class(es) Dates Sig (Normalized) Sig (Original) [id number] 200 actuat albuterol 0.09 mg/actuat metered dose inhaler (20 sources) beta2-Adrenergic Agonist Start: 02-21-2024 End: 02-21-2024 take 2 puff(s) by inhalation every four hours for wheezing albuterol HFA 90 mcg/act inhaler Indications: Other emphysema (CMS/HCC) Inhale 2 puffs every 4 (four) hours if needed for wheezing 18 g 2 02/21/2024 Active Start: 03-02-2023 take 2 puff(s) by in halation every four hours for wheezing albuterol 90 mcg/actuation inhaler Inhale 2 puffs every 4 hours if needed for wheezing. 03/02/2023 Active Start: 01-16-2021 Albuterol Sulf ate (Ventolin Hfa) 90 mcg/actuation Hfa Aerosol Inhaler Active 2 PUFF INHALATION As Directed January 16, 2021 12:00am take 2 puff(s) by in halation every four hours as needed Ventolin HFA 108 (90 Base) MCG/ACT 2 puffs Inhalation every 4 hrs prn Active alendronic acid 70 mg oral tablet (20 sources) Bisphosphonate Start: 08-29-2023 End: 11-19-2024 take 1 tablet by mouth in the morning alendronate (Fosamax) 70 MG tablet Indications: Age-related osteoporosis without current pathological fracture (CMS/HCC) Take 1 tablet (70 mg) by mouth every 7 (seven) days Take in the morning with a full glass of water, on an empty stomach, and do not take anything else by mouth or lie down for the next 30 min. 12 tablet 1 06/04/2024 11/19/2024 Active Start: 05-29-2023 take 1 tablet by chi th every week alendronate (Fosamax) 70 mg tablet Take 1 tablet (70 mg) by mouth 1 (one) time per week. 05/29/2023 Active Start: 01-16-2021 take 70 mg [...] day Active apixaban 5 mg oral tablet (16 sources) Factor Xa Inhibitor Start: 06-01-2023 End: 12-01-2024 take 1 tablet by mouth in the morning apixaban (Eliquis) 5 MG tablet Indications: New onset a-fib (CMS/HCC) Take 1 tablet (5 mg) by mouth in the morning and 1 tablet (5 mg) before bedtime. 180 tablet 1 06/04/2024 12/01/2024 Active atorvastatin 10 mg oral tablet (20 sources) HMG-CoA Reductase Inhibitor Start: 06-04-2024 take 1 tablet by mouth once daily atorvastatin (Lipitor) 10 MG tablet Indications: Mixed hyperlipidemia (CMS/HCC) Take 1 tablet (10 mg) by mouth Daily 90 tablet 06/04/2024 Active Start: 06-04-2024 take 1 tablet by chi once daily atorvastatin (Lipitor) 10 MG tablet Indications: Mixed hyperlipidemia (CMS/HCC) Take 1 tablet (10 mg) by mouth Daily 90 tablet 06/04/2024 Active Start: 01-16-2021 End: 07-10-2024 take 1 tablet by mouth once daily atorvastatin (Lipitor) 10 mg tablet Indications: Mixed hyperlipidemia Take 1 tablet (10 mg) by mouth once daily. 90 tablet 01/02/2024 04/01/2024 Active calcium carbonate 1250 mg / cholecalciferol 200 unt oral tablet (19 sources) Vitamin D Start: 06-04-2024 take 1 tablet by mouth once Calcium Carb-Cholecalciferol (Oyster Shell Calcium w/D) 500-5 MG-MCG tablet Indications: Age-related osteoporosis without current pathological fracture (CMS/HCC) Take 1 tablet by mouth every 12 (twelve) hours 180 tablet 1 06/04/2024 Active Start: 06-04-2024 take 1 tablet by mouth once Ca lcium Carb-Cholecalciferol (Oyster Shell Calcium w/D) 500-5 MG-MCG tablet Indications: Age-related osteoporosis without current pathological fracture (CMS/HCC) Take 1 tablet by mouth every 12 (twelve) hours 180 tablet 1 06/04/2024 Active Start: 02-21-2024 End: 06-04-2024 take 1 tablet by mouth once Calcium Carb-Cholecalcifer ol (Oyster Shell Calcium w/D) 500-5 MG-MCG tablet Indications: Age-related osteoporosis without current pathological fracture (CMS/HCC) Take 1 tablet by mouth every 12 (twelve) hours 180 tablet 1 02/21/2024 06/04/2024 Discontinued (Reorder) Start: 11-15-2023 End: 02-21-2024 take 1 tablet by mouth every twelve hours Calcium Carb-Cholecalciferol (Oyster Shell Calcium w/D) 500-5 MG-MCG tablet Indications: Age-related osteoporosis without current pathological fracture (CMS/HCC) TAKE 1 TABLET BY MOUTH EVERY 12 HOURS 180 tablet 1 11/15/2023 02/21/2024 Discontinued (Reorder) Start: 06-29-2023 End: 09-27-2023 take 1 tablet by mouth once Calcium Carb-Cholecalcifer ol (Calcium 500 + D) 500-5 MG-MCG tablet Indications: Age-related osteoporosis without current pathological fracture (CMS/HCC) Take 1 tablet by mouth every 12 (twelve) hours 180 tablet 1 06/29/2023 09/27/2023 Active Start: 09-01-2022 take 2 tablets by mo uth every twelve hours Calcium 500 With D 500 mg-10 mcg (400 unit) tablet Take 2 tablets by mouth every 12 hours. 09/01/2022 Active Start: 11-03-2021 take 2 tablets by mo uth twice daily Calcium Carbonate-Vitamin D3 (Oyster Shell Calcium-Vit D3) 500 mg-10 mcg (400 unit) tablet Active 2 TAB PO Twice daily November 03, 2021 12:00am cetirizine hydrochloride 10 mg oral tablet (2 sources) Histamine-1 Receptor Antagonist Start: 06-04-2024 End: 09-02-2024 take 1 tablet by mouth once daily cetirizine (ZyrTEC) 10 MG tablet Indications: Seasonal allergic rhinitis due to other allergic trigger Take 1 tablet (10 mg) by mouth Daily 30 tablet 2 06/04/2024 09/02/2024 Active cholecalciferol 0.025 mg oral tablet (2 sources) Vitamin D Start: 12-11-2021 take 1 tablet by mouth once daily in the morning Cholecalciferol (Vitamin D3) (Vitamin D3) 25 mcg (1,000 unit) Tablet Active 25 MCG PO Every morning December 11, 2021 12:00am diphenhydrAMINE hydrochloride 20 mg/ml / zinc acetate 1 mg/ml topical cream (5 sources) Histamine-1 Receptor Antagonist End: 02-21-2024 diphenhydrAMINE-zinc acetate cream Apply 1 application topically in the morning and 1 application before bedtime. 02/21/2024 Discontinued (Therapy completed) End: 06-23-2023 diphenhydramine-zinc acetate cream Apply topically once daily at bedtime. 0 06/23/2023 Discontinued (Therapy completed) docusate sodium 100 mg oral capsule (10 sources) Start: 12-11-2021 take 1 capsule by mouth once daily Docusate Sodium (Colace) 100 mg Capsule Active 100 MG PO Daily December 11, 2021 12:00am Start: 12-18-2020 [facility] hours Colace 100 MG 1 CAPSULE Orally TWICE A DAY for 30 day(s) Nov, Not-Taking fluticasone propionate 0.05 mg/actuat metered dose nasal spray (18 sources) Corticosteroid Start: 06-04-2024 take 1 spray(s) nasal route once daily fluticasone (Flonase) 50 MCG/ACT nasal spray Indications: Seasonal allergic rhinitis due to other allergic trigger Administer 1 spray into each nostril Daily Shake gently. Before first use, prime pump. After use, clean tip and replace cap. 48 mL 1 06/04/2024 Active Start: 06-04-2024 take 1 spray(s) nasa l route once daily fluticasone (Flonase) 50 MCG/ACT nasal spray Indications: Seasonal allergic rhinitis due to other allergic trigger Administer 1 spray into each nostril Daily Shake gently. Before first use, prime pump. After use, clean tip and replace cap. 48 mL 1 06/04/2024 Active Start: 03-14-2024 End: 06-04-2024 take 2 spray(s) nasal route once daily fluticasone (Flonase) 50 MCG/ACT nasal spray Indications: Seasonal allergic rhinitis due to other allergic trigger USE 2 SPRAYS IN EACH NOSTRIL ONCE A DAY SHAKE GENTLY BEFORE FIRST USE PRIME PUMP CLEAN TIP AND REPLACE RHONA 48 mL 1 03/14/2024 06/04/2024 Discontinued (Reorder) Start: 02-21-2024 End: 03-14-2024 take 2 spray(s) nasal route once daily fluticasone (Flonase Allergy Relief) 50 MCG/ACT nasal spray Indications: Other emphysema (CMS/HCC) Administer 2 sprays into each nostril Daily Shake gently. Before first use, prime pump. After use, clean tip and replace cap. 16 g 2 02/21/2024 03/14/2024 Discontinued End: 02-21-2024 take 2 spray(s) nasal route in the morning fluticasone (Flonase Allergy Relief) 50 MCG/ACT nasal spray Administer 2 sprays into each nostril in the morning. Shake gently. Before first use, prime pump. After use, clean tip and replace cap.. 02/21/2024 Discontinued (Reorder) take 2 spray(s) nasa l route once daily fluticasone (Flonase) 50 mcg/actuation nasal spray Administer 2 sprays into each nostril once daily. Shake gently. Before first use, prime pump. After use, clean tip and replace cap. Active hydrOXYzine hydrochloride 25 mg oral tablet (1 source) Antihistamine Start: 11-22-2022 take 1 tablet by mouth every eight hours as needed hydrOXYzine HCl 25 MG 1 tablet Orally q8hrs prn itching, rash for 5 days Oct, Active losartan potassium 100 mg oral tablet (16 sources) Angiotensin 2 Receptor Jessie Start: 05-03-2023 End: 12-21-2024 take 1 tablet by mouth once daily losartan (Cozaar) 100 MG tablet Indications: Primary pulmonary hypertension (CMS/HCC) Take 1 tablet (100 mg) by mouth Daily 100 tablet 1 06/04/2024 12/21/2024 Active methylPREDNISolone 4 mg oral tablet (7 sources) Corticosteroid Start: 04-08-2021 Medrol 4 MG as directed Orally Mar, Active metoprolol tartrate 25 mg oral tablet (16 sources) beta-Adrenergic Jessie Start: 06-27-2023 End: 12-01-2024 take 1 tablet by mouth in the morning metoprolol tartrate (Lopressor) 25 MG tablet Indications: New onset a-fib (CMS/HCC) Take 1 tablet (25 mg) by mouth in the morning and 1 tablet (25 mg) before bedtime. 180 tablet 1 06/04/2024 12/01/2024 Active pantoprazole 40 mg delayed release oral tablet (20 sources) Proton Pump Inhibitor Start: 03-14-2023 End: 12-01-2024 take 1 tablet by mouth before mealtime pantoprazole (ProtoNix) 40 MG EC tablet Indications: Gastroesophageal reflux disease without esophagitis Take 1 tablet (40 mg) by mouth in the morning. Take before meals. 90 tablet 1 06/04/2024 12/01/2024 Active Start: 03-14-2023 End: 09-27-2023 take 1 tablet by mouth once pantoprazole (ProtoNix) 40 MG EC tablet Indications: Gastroesophageal reflux disease without esophagitis Take 1 tablet (40 mg) by mouth every 12 (twelve) hours Do not crush, chew, or split. 180 tablet 0 06/29/2023 09/27/2023 Active Start: 12-11-2021 take 40 mg by mouth once daily in the morning Pantoprazole Active 40 MG PO Every morning December 11, 2021 12:00am Start: 01-16-2021 End: 11-03-2021 take 40 mg by mouth once daily Pantoprazole Discontinued 40 MG PO Daily January 16, 2021 12:00am November 03, 2021 1:12pm pramipexole dihydrochloride 0.5 mg oral tablet (20 sources) Nonergot Dopamine Agonist Start: 06-04-2024 take 1 tablet by mouth at bedtime pramipexole (Mirapex) 0.5 MG tablet Indications: Restless legs syndrome Take 1 tablet (0.5 mg) by mouth at bedtime 90 tablet 1 06/04/2024 Active Start: 06-04-2024 take 1 tablet by chi th at bedtime pramipexole (Mirapex) 0.5 MG tablet Indications: Restless legs syndrome Take 1 tablet (0.5 mg) by mouth at bedtime 90 tablet 1 06/04/2024 Active Start: 04-03-2023 End: 06-04-2024 take 1 tablet by mouth once daily at bedtime pramipexole (Mirapex) 0.5 MG tablet Indications: Restless legs syndrome TAKE 1 TABLET BY MOUTH EVERYDAY AT BEDTIME 90 tablet 1 11/15/2023 06/04/2024 Discontinued (Reorder) Start: 01-16-2021 take 0.5 mg by mouth [...] / vilanterol 0.025 mg/actuat dry powder inhaler (20 sources) Anticholinergi c, beta2-Adrenerg ic Agonist Start: 06-04-2024 take 1 puff(s) by inhalation once daily Umeclidinium-Nimisha nterol (Anoro Ellipta) 62.5-25 MCG/ACT aerosol powder Indications: Other emphysema (CMS/HCC) Inhale 1 puff Daily 180 each 5 06/04/2024 Active Start: 06-04-2024 take 1 puff(s) by inhalation once daily Umeclidinium-Vilanterol (Anoro Ellipta) 62.5-25 MCG/ACT aerosol powder Indications: Other emphysema (CMS/HCC) Inhale 1 puff Daily 180 each 5 06/04/2024 Active Start: 08-29-2023 End: 06-04-2024 take 1 puff(s) by mouth once daily Anoro Ellipta 62.5-25 MCG/ACT aerosol powder Indications: Other emphysema (CMS/HCC) INHALE 1 PUFF BY MOUTH EVERY DAY 180 each 5 08/29/2023 06/04/2024 Discontinued (Reorder) Start: 06-01-2023 Anoro Ellipta 62.5-25 mcg/actuation blister with device Inhale 1 puff. 06/01/2023 Active Start: 01-16-2021 Umeclidinium-V ilanterol (Anoro [...] Classification Problem Date Documented Da te Episodic/Chronic Acute and unspecified renal failure (1 source) Acute kidney failure, unspecified; Translations: [ACUTE KIDNEY FAILURE UNSPECIFIED] Onset: 2 Episodic Allergic reactions (1 source) Idiopathic urticaria Episodic Cardiac dysrhythmias (20 sources) Atrial 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; Translations: [Unspecified atrial 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] Onset: 3 Resolved: 4 06-23-2023 Chronic Chronic obstructive pulmonary disease and bronchiectasis (13 sources) Pulmonary emphysema; Translations: [Other emphysema] Onset: 3 05-17-2023 Chronic Coagulation and hemorrhagic disorders (19 sources) Other thrombophilia; Translations: [Secondary hypercoagulable state] Onset: 4 06-23-2023 Chronic Conditions associated with dizziness or vertigo (4 sources) Dizziness and giddiness; Translations: [DIZZINESS AND GIDDINESS] Onset: 2 Episodic Disorders of lipid metabolism (20 sources) Hyperlipidemia, unspecified; Translations: [Hyperlipidemia] Onset: 2 06-23-2023 Chronic Diverticulosis and diverticulitis (18 sources) Diverticulosis of sigmoid colon; Translations: [Diverticulosis of large intestine without perforation or abscess without bleeding] Chronic Esophageal disorders (20 sources) Gastroesophageal reflux disease; Translations: [Gastro-esophageal reflux disease without esophagitis] Onset: 4 06-23-2023 Chronic Essential hypertension (20 sources) Essential (primary) hypertension; Translations: [Essential hypertension] Onset: 2 Chronic Fluid and electrolyte disorders (1 source) Dehydration; Translations: [DEHYDRATION] Onset: 2 Episodic Osteoarthritis (20 sources) Arthritis of left wrist; Translations: [Primary osteoarthritis, left wrist] Onset: 1 Resolved: 1 Chronic Osteoporosis (10 sources) Senile osteoporosis; Translations: [Age-related osteoporosis without current pathological fracture] Onset: 4 02-21-2024 Chronic Other aftercare (1 source) Other oysterman (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 therapy; Translations: [OTH FRONTLOAD DRIVER CURRENT DRUG THERAPY] Onset: 2 Episodic Other and unspecified benign neoplasm (9 [...] Other hereditary and degenerative nervous system conditions (10 sources) Restless legs; Translations: [Restless legs syndrome] Onset: 3 05-17-2023 Chronic Other screening for suspected conditions (not mental disorders or infectious disease) (14 sources) Encounter for screening mammogram for malignant neoplasm of breast; Translations: [Patient encounter status] Onset: 2 Episodic Other upper respiratory disease (3 sources) Seasonal allergic rhinitis; Translations: [Other allergic rhinitis] 03-14-2024 Chronic Pulmonary heart disease (2 sources) Idiopathic pulmonary arterial hypertension ; Translations: [Primary pulmonary hypertension] 06-04-2024 Chronic Substance-related disorders (20 sources) Smokes tobacco daily; Translations: [Nicotine dependence, unspecified, uncomplicated] Onset: 3 06-23-2023 Chronic Unclassified (1 source) Encounter for preprocedural laboratory examination; Translations: [Encounter for preprocedural laboratory examination] Onset: 2 Unclassified (1 source) Z01.812 - Encounter for preprocedural laboratory examination; Translations: [Z01.812 - Encounter for preprocedural laboratory examination] Onset: 2 Past or Other Problems Problem Classification Problem Date Documented Da te Episodic/Chronic Abdominal pain (20 sources) Abdominal pain; Translations: [Unspecified abdominal pain] Onset: 11-05-2021 11-05-2021 Episodic Administrative/social admission (5 sources) Follow-up status; Translations: [Person consulting for explanation of examination or test findings] Onset: 07-11-2023 07-11-2023 Episodic Gastrointestinal hemorrhage (7 sources) Melena; Translations: [Hematochezia] Onset: 10-28-2021 Resolved: 10-28-2021 Episodic Hemorrhoids (10 sources) Hemorrhoids; Translations: [Unspecified hemorrhoids] Onset: 06-29-2023 12-23-2021 Episodic Mood disorders (8 sources) Mood disorders Onset: 05-17-2023 05-17-2023 Nonspecific chest pain (10 sources) Chest pain; Translations: [Chest pain, unspecified] Onset: 06-23-2023 06-23-2023 Episodic Other aftercare (8 sources) Long-term current use of anticoagulant; Translations: [care home (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 anticoagulants] Onset: 06-23-2023 06-23-2023 Episodic Other aftercare (4 sources) oysterman (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 anticoagulants; Translations: [oysterman (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 anticoagulants] Onset: 06-23-2023 Episodic Other bone disease and musculoskeletal deformities (8 sources) Osteopenia; Translations: [Other specified disorders of bone density and structure, multiple sites] Onset: 05-17-2023 05-17-2023 Episodic Other circulatory disease (4 sources) Elevated [...] M25.532] Onset: 03-11-2021 Resolved: 05-06-2021 Episodic Unclassified (5 sources) Onset: 06-23-2023 Resolved: 01-09-2024 06-23-2023 Results Test Name Value Interpretation Reference Range Facility ALL CBC WITH AUTO DIFFon BASOPHILS ABSOLUTE AUTO 0.1 [facility] Basophils/100 WBC (Bld) 0.7 % 0.2 - 2.0 % [facility] Eosinophils/100 WBC (Bld) 1.9 % 0.9 - 7.0 % [facility] Erythrocyte distribution width (RBC) [Ratio] 13.7 % 11.0 - 15.0 % [facility] Hematocrit (Bld) [Volume fraction] 44.8 % 36.0 - 48.0 % [facility] Hemoglobin (Bld) [Mass/Vol] 14.3 g/dL 12.0 - 16.0 g/dL [facility] IMMATURE GRANULOCYTES ABS AUTO 0.02 [facility] Immature granulocytes/100 WBC (Bld) 0.3 % 0.0 - 0.5 % [facility] LYMPHOC[facility]TES [facility] Lymph[facility]/100 WBC (Bld) 31.9 % 20.5 - 60.0 % [facility] MCH (RBC) [Entitic mass] 30.6 pg 26.7 - 34.0 pg [facility] MCHC (RBC) [Mass/Vol] 31.9 g/dL 29.9 - 35.2 g/dL [facility] MCV (RBC) [Entitic vol] 95.7 fL 81.0 - 99.0 fL [facility] MONOCYTES ABSOLUTE AUTO 0.5 [facility] Monocytes/100 WBC (Bld) 7.0 % 1.7 - 12.0 % [facility] NEUTROPHILS ABSOLUTE AUTO 4.4 [facility] Neutrophils/100 WBC (Bld) 58.2 % 43.0 - 75.0 % [facility] Platelet mean volume (Bld) [Entitic vol] 10.7 fL 9.5 - 13.5 fL [facility] EO # 0.1 [facility] PLT 219 [facility] RBC 4.68 [facility] WBC 7.5 [facility] NM Heart Perfusion W stress and W radionuclide Jesse 07-07-2023 Normal Lexiscan Myoview cardiac perfusion stress test. No evidence of ischemia or myocardial infarction by perfusion imaging. Normal left ventricular systolic function, ejection fraction 77%. No previous studies are available for comparison. Signed by: Luisa Cabrera 07/07/2023 4:22 PM Dictation workstation: [id number] [facility] Interpreted By: Luisa Cabrera, Roya Bahena STUDY: MYOCARDIAL PERFUSION STRESS TEST WITH LEXISCAN Performing facility: [facility], [address] [place] [address], [address], [address] Provider: Jolly Smith MD, [facility] PCP: Dr. Reyna RAMIREZ Supervising provider: [facility] Smith MD, [facility] INDICATION: Atherosclerosis of coronary artery of [place] heart without angina pectoris, unspecified vessel or lesion type I25.10 (ICD-10-CM); Chest pain, unspecified type R07.9 (ICD-10-CM) HISTORY: Gender: F; Age: 72 y/o ; Height: HT 157.5 cm cm; Weight: WT 65.318 kg kg. CAD; Chest Pain; HTN; COPD; SOB; Arrhythmias; AFib, Palpitations; Currently smoking. COMPARISON: No comparison. ACCESSION NUMBER(S): [id number] ORDERING CLINICIAN: JOLLY SMITH TECHNIQUE: ONE DAY [...] PERFUSION STRESS TEST WITH LEXISCAN Performing facility: [facility], [address] [place] [address], [address], [address] Provider: Jolly Smith MD, [facility]ACC PCP: Dr. Reyna RAMIREZ Supervising provider: Jolly Smith MD, FACC INDICATION: Atherosclerosis of coronary artery of [place] heart without angina pectoris, unspecified vessel or lesion type I25.10 (ICD-10-CM); Chest pain, unspecified type R07.9 (ICD-10-CM) HISTORY: Gender: F; Age: 72 y/o ; Height: HT 157.5 cm cm; Weight: WT 65.318 kg kg. CAD; Chest Pain; HTN; COPD; SOB; Arrhythmias; AFib, Palpitations; Currently smoking. COMPARISON: No comparison. ACCESSION NUMBER(S): [id number] ORDERING CLINICIAN: JOLLY SMITH TECHNIQUE: ONE DAY [...] Luisa Cabrera 07/07/2023 4:22 PM Dictation workstation: [id number] [facility] Work Phone: Radiology Study observation (narrative) [facility] Work Phone: NM Heart Perfusion W stress and W radionuclide IVOrdered By: Luisa Cabrera on 07-07-2023 [facility] Work Phone: NUCLEAR STRESS TESTon 2023 NUCLEAR STRESS TEST Interpreted By: Luisa Cabrera and Beal Gina STUDY: MYOCARDIAL PERFUSION STRESS TEST WITH LEXISCAN Performing facility: [facility], [address] [place] [address], [address], [place] [address] [facility] Provider: Jolly Smith MD, FACC PCP: Dr. Reyna RAMIREZ Supervising provider: Jolly Smith MD, FACC INDICATION: Atherosclerosis of coronary artery of [place] heart without angina pectoris, unspecified vessel or lesion type I25.10 (ICD-10-CM); Chest pain, unspecified type R07.9 (ICD-10-CM) HISTORY: Gender: F; Age: 72 y/o ; Height: HT 157.5 cm cm; Weight: WT 65.318 kg kg. CAD; Chest Pain; HTN; COPD; SOB; Arrhythmias; AFib, Palpitations; Currently smoking. COMPARISON: No comparison. ACCESSION NUMBER(S): [id number] ORDERING CLINICIAN: JOLLY SMITH TECHNIQUE: ONE DAY [...] Luisa Cabrera 07/07/2023 4:22 PM Dictation workstation: [id number] Normal [facility] ECG 12 Leadon 06-23-2023 [facility] Work Phone: Patient Letter FTon 2022 Patient Letter FT March 23, 2023 [address] [place] [address] : 1950 Dear Cydney, This is a reminder that you are due for an [facility] with [facility]. Please contact our office at [phone] to schedule an appointment at your earliest convenience. [facility] Reminders - From: Juliane Gillis MA To: [facility] - Reminders/Recalls; Sent: 02/04/2023 13:34:26 EDT Show up: 02/04/2023 13:34:00 EDT Subject: colon recall Reminder Message 10 year recall Salam 09/22/12 first recall letter second recall letter Normal [facility] Patient Letter FT February 07, 2023 [address]A [address] [place] [address] : 1950 Dear Cydney, This is a reminder that you are due for an appointment with [facility]. Please contact our office at [phone] to schedule an appointment at your earliest convenience. Thank you, [facility] Patient Letter FTon 2022 Patient Letter FT September 29, 2022 [address] [place] [address] SHAUN CYDNEY 1950 Dear Cydney, This is a SECOND ATTEMPT to remind you that you are due for an appointment with [facility]. Please contact our office at [phone] to schedule an appointment at your earliest convenience. [facility] you, [facility] Reminders - From: Ligia Roberts To: [facility] - Reminders/Recalls; Sent: 09/13/2022 10:56:07 EDT Show up: 09/13/2022 10:56:00 EDT Subject: Ambulatory Reminder Reminder/Recall arturo aguilar 10 year colon recall 09/19/2022 first recall letter second recall letter Normal [facility] Patient Letter FTon 2022 Patient Letter [facility] September 13, 2022 [address] [place] [address] CYDNEY VILLA 1950 Dear Cydney, This is a reminder that you are due for an appointment with [facility]. Please contact our office at [phone] to schedule an appointment at your earliest convenience. Thank you, [facility] PROF CHEM 8 (BAS METB)on Anion gap [Moles/Vol] 10.8 mmol/L Normal [facility] Comment on above: Performed By: #### B MP #### [facility] [address] [address] [address] Josef Fraire Calcium [Mass/Vol] 9.4 mg/dL Normal 8.5-10.1 [facility] Comment on above: Performed By: #### B MP #### [facility] [address] [address] [address] Josef Fraire Chloride [Moles/Vol] 104 mmol/L Normal 98-107 [facility] Comment on above: Performed By: #### B MP #### [facility] [address] [address] [address] Josef Fraire CO2 [Moles/Vol] 28.4 mmol/L Normal 21.0-32.0 [facility] Comment on above: Performed By: #### B MP #### [facility] [address] [address] [address] Josef Fraire Creatinine [Mass/Vol] 1.03 mg/dL Critically high 0.55-1.02 [facility] Comment on above: Performed By: #### B MP #### [facility] [address] [address] [address] Josef Fraire EGFR-AF VIETNAMESE >60 Normal >=60 [facility] Comment on above: Performed By: #### B MP #### [facility] [address] [address] [address] Josef Fraire EGFR-NON AF VIET[place]ESE 53 mL/min/1.73m2 Critically low >=60 [facility] Comment on above: Performed By: #### B MP #### [facility] [address] [address] [address] Josef Fraire Glucose [Mass/Vol] 82 mg/dL Normal 74-106 [facility] Comment on above: Performed By: #### B MP #### [facility] [address] [address] [address] Josef Fraire Potassium [Moles/Vol] 4.2 mmol/L Normal 3.5-5.1 [facility] Comment on above: Performed By: #### B MP #### [facility] [address] [place] [address] Dr. Josef Fraire Sodium [Moles/Vol] 139 mmol/L Normal 136-145 [facility] Comment on above: Performed By: #### B MP #### [facility] [address] [address] [address] Josef Fraire Urea nitrogen [Mass/Vol] 10.0 mg/dL Normal 7.0-18.0 [facility] Comment on above: Performed By: #### B MP #### [facility] [address] [address] [address] Josef Fraire Urea nitrogen/Creatinine [Mass ratio] 9.7 mg/mg Normal [facility] Comment on above: Performed By: #### B MP #### [facility] [address] [address] [address] Josef Fraire CBC AUTO DIFFon 01-28-2022 BASO # 0.1 103/ul Normal 0.0-0.1 [facility] Comment on above: Performed By: #### C BC #### [facility] [address] [address] [address] Josef Fraire Basophils/100 WBC (Bld) 0.6 % Normal 0.2-2.0 [facility] Comment on above: Performed By: #### C BC #### [facility] [address] [place] [address] Dr. Josef Fraire EO # 0.2 103/ul Normal 0.0-0.7 [facility] Comment on above: Performed By: #### C BC #### [facility] [address] [place] [address] Dr. Josef Fraire Eosinophils/100 WBC (Bld) 1.5 % Normal 0.9-7.0 [facility] Comment on above: Performed By: #### C BC #### [facility] [address] [place] [address] Dr. Josef Fraire Erythrocyte distribution width (RBC) [Ratio] 13.4 % Normal 11.0-15.0 [facility] Comment on above: Performed By: #### C BC #### [facility] [address] [place] [address] Dr. Josef Fraire Hematocrit (Bld) [Volume fraction] 43.0 % Normal 36.0-48.0 [facility] Comment on above: Performed By: #### C BC #### [facility] [address] [place] [address] Dr. Josef Fraire Hemoglobin (Bld) [Mass/Vol] 14.6 g/dL Normal 12.0-16.0 [facility] Comment on above: Performed By: #### C BC #### [facility] [address] [place] [address] Dr. Josef Fraire IG # 0.05 10e3/ul Critically high 0.00-0.03 [facility] Comment on above: Performed By: #### C BC #### [facility] [address] [place] [address] Dr. Josef Fraire IG % 0.5 % Normal 0.0-0.5 [facility] Comment on above: Performed By: #### C BC #### [facility] [address] [place] [address] Dr. Josef Fraire LYMPH # 3.1 103/ul Normal 1.2-3.8 [facility] Comment on above: Performed By: #### C BC #### [facility] [address] [place] [address] Dr. Josef Fraire Lymphocytes/100 WBC (Bld) 29.5 % Normal 20.5-60.0 [facility] Comment on above: Performed By: #### C BC #### [facility] [address] [place] [address] Dr. Josef Fraire MANUAL DIFF REQ NO Normal [facility] Comment on above: Performed By: #### C BC #### [facility] [address] [place] [address] Dr. Josef Fraire MCH (RBC) [Entitic mass] 30.0 pg Normal 26.7-34.0 [facility] Comment on above: Performed By: #### C BC #### [facility] [address] [place] [address] Dr. Josef Fraire MCHC (RBC) [Mass/Vol] 34.0 g/dL Normal 29.9-35.2 [facility] Comment on above: Performed By: #### C BC #### [facility] [address] [place] [address] Dr. Josef Fraire MCV (RBC) [Entitic vol] 88.3 fL Normal 81.0-99.0 [facility] Comment on above: Performed By: #### C BC #### [facility] [address] [place] [address] Dr. Josef Fraire MONO # 0.7 103/ul Normal 0.3-0.8 [facility] Comment on above: Performed By: #### C BC #### [facility] [address] [place] [address] Dr. Josef Fraire Monocytes/100 WBC (Bld) 6.8 % Normal 1.7-12.0 [facility] Comment on above: Performed By: #### C BC #### [facility] [address] [place] [address] Dr. Josef Fraire NEUT # 6.5 103/ul Normal 1.4-6.5 [facility] Comment on above: Performed By: #### C BC #### [facility] [address] [place] [address] Dr. Josef Fraire Neutrophils/100 WBC (Bld) 61.1 % Normal 43.0-75.0 [facility] Comment on above: Performed By: #### C BC #### [facility] [address] [place] [address] Dr. Josef Fraire Platelet mean volume (Bld) [Entitic vol] 10.7 fL Normal 9.5-13.5 [facility] Comment on above: Performed By: #### C BC #### [facility] [address] [place] [address] Dr. Josef Fraire PLT 313 103/ul Normal 150-450 [facility] Comment on above: Performed By: #### C BC #### [facility] [address] [place] [address] Dr. Josef Fraire RBC 4.87 106/ul Normal 4.20-5.40 [facility] Comment on above: Performed By: #### C BC #### [facility] [address] [place] [address] Dr. Josef Fraire WBC 10.7 103/ul Normal 4.0-11.0 [facility] Comment on above: Performed By: #### C BC #### [facility] [address] [place] [address] Dr. Josef Fraire ER URINE PROFILEon 2 Bilirubin Ql (U) Negative Normal NEGATIVE [facility] Comment on above: Performed By: #### E RUR #### [facility] [address] [place] [address] Dr. Josef Fraire Clarity (U) CLEAR Normal CLEAR [facility] Comment on above: Performed By: #### E RUR #### [facility] [address] [place] [address] Dr. Josef Fraire Color (U) LT. YELLOW Normal YELLOW [facility] Comment on above: Performed By: #### E RUR #### [facility] [address] [place] [address] Dr. Josef Fraier ERUAHD A micrscopic examination will be performed if indicated. Normal [facility] Comment on above: Performed By: #### E RUR #### [facility] [address] [place] [address] Dr. Josef Fraire Glucose Ql (U) Negative Normal NEGATIVE [facility] Comment on above: Performed By: #### E RUR #### [facility] [address] [place] [address] Dr. Josef Fraire Hemoglobin Ql (U) Negative Normal NEGATIVE [facility] Comment on above: Performed By: #### E RUR #### [facility] [address] [place] [address] Dr. Josef Fraire Ketones Ql (U) Negative Normal NEGATIVE [facility] Comment on above: Performed By: #### E RUR #### [facility] [address] [place] [address] Dr. Josef Fraire LEUKOCYTES Negative Normal NEGATIVE [facility] Comment on above: Performed By: #### E RUR #### [facility] [address] [place] [address] Dr. Josef Fraire Nitrite Ql (U) Negative Normal NEGATIVE [facility] Comment on above: Performed By: #### E RUR #### [facility] [address] [place] [address] Dr. Josef Fraire pH (U) 6.0 [pH] Normal 5-9 [facility] Comment on above: Performed By: #### E RUR #### [facility] [address] [place] [address] Dr. Josef Fraire SPEC GRAVITY <=1.005 Abnormal 1.005-<=1.025 [facility] Comment on above: Performed By: #### E RUR #### [facility] [address] [place] [address] Dr. Josef Fraire UA PROTEIN Negative Normal NEGATIVE/ TRACE [facility] Comment on above: Performed By: #### E RUR #### [facility] [address] [place] [address] Dr. Josef Fraire UR MICRO IND NOT INDICATED Normal [facility] Comment on above: Performed By: #### E RUR #### [facility] [address] [place] [address] Dr. Josef Fraire Urobilinogen Qn (U) 0.2 {Vero'U}/dL Normal 0.2 - 1. 0 [facility] Comment on above: Performed By: #### E RUR #### [facility] [address] [place] [address] Dr. Josef Fraire PROF CHEM 8 (BAS METB)on Anion gap [Moles/Vol] 14.6 mmol/L Normal [facility] Comment on above: Performed By: #### L IPID, CMP #### [facility] [address] [place] [address] Dr. Josef Fraire Calcium [Mass/Vol] 9.7 mg/dL Normal 8.5-10.1 [facility] Comment on above: Performed By: #### L IPID, CMP #### [facility] [address] [place] [address] Dr. Josef Fraire Chloride [Moles/Vol] 96 mmol/L Critically low 98-107 [facility] Comment on above: Performed By: #### L IPID, CMP #### [facility] [address] [place] [address] Dr. Josef Fraire CO2 [Moles/Vol] 25.8 mmol/L Normal 21.0-32.0 [facility] Comment on above: Performed By: #### L IPID, CMP #### [facility] [address] [place] [address] Dr. Josef Fraire Creatinine [Mass/Vol] 1.61 mg/dL Critically high 0.55-1.02 [facility] Comment on above: Performed By: #### L IPID, CMP #### [facility] [address] [place] [address] Dr. Josef Fraire EGFR-AF VI[place]ESE 38 mL/min/1.73m2 Critically low >=60 [facility] Comment on above: Performed By: #### L IPID, CMP #### [facility] [address] [place] [address] Dr. Josef Fraire EGFR-NON AF VI[place]ESE 32 mL/min/1.73m2 Critically low >=60 [facility] Comment on above: Performed By: #### L IPID, CMP #### [facility] [address] [place] [address] Dr. Josef Fraire Glucose [Mass/Vol] 119 mg/dL Critically high 74-106 [facility] Comment on above: Performed By: #### L IPID, CMP #### [facility] [address] [place] [address] Dr. Josef Fraire Potassium [Moles/Vol] 3.4 mmol/L Critically low 3.5-5.1 [facility] Comment on above: Result Comment: SPEC IMEN IS JUST SLIGHTLY HEMOLYZED AND SLIGHTLY LIPEMIC Performed By: #### L IPID, CMP #### [facility] [address] [place] [address] Dr. Josef Fraire Sodium [Moles/Vol] 133 mmol/L Critically low 136-145 [facility] Comment on above: Performed By: #### L IPID, CMP #### [facility] [address] [place] [address] Dr. Josef Fraire Urea nitrogen [Mass/Vol] 22.0 mg/dL Critically high 7.0-18.0 [facility] Comment on above: Performed By: #### L IPID, CMP #### [facility] [address] [place] [address] Dr. Josef Fraire Urea nitrogen/Creatinine [Mass ratio] 13.7 mg/mg Normal [facility] Comment on above: Performed By: #### L IPID, CMP #### [facility] [address] [place] [address] Dr. Josef Fraire TROPONIN, HIGH SENSITIVITYon 01-28-2022 HSTROP 8.3 pg/mL Normal 4.0-51.3 [facility] Comment on above: Result Comment: CUT- OFF POINTS HAVE BEEN ESTABLISHED BASED ON THE FOURTH UNIVERSAL DEFINITIONS OF MYOCARDIAL INFARCTION. THE UPPER REFERENCE LIMIT (URL) OF TROPONIN, DEFINED THE 99TH PERCENTILE OF cTnI DISTRIBUTION IN A REFERENCE POPULATION, HAS BEEN CONFIRMED THE DECISION THRESHOLD FOR OR DIAGNOSIS. Performed By: #### L IPID, CMP #### [facility] [address] [address] [address] Josef Fraire PROF CHEM 8 (BAS METB)on Anion gap [Moles/Vol] 14.6 mmol/L Normal [facility] Comment on above: Performed By: #### B MP #### [facility] [address] [address] [address] Josef Fraire Calcium [Mass/Vol] 10.6 mg/dL Critically high 8.5-10.1 [facility] Comment on above: Performed By: #### B MP #### [facility] [address] [address] [address] Josef Fraire Chloride [Moles/Vol] 97 mmol/L Critically low 98-107 [facility] Comment on above: Performed By: #### B MP #### [facility] [address] [address] [address] Josef Fraire CO2 [Moles/Vol] 29.5 mmol/L Normal 21.0-32.0 [facility] Comment on above: Performed By: #### B MP #### [facility] [address] [address] [address] Josef Fraire Creatinine [Mass/Vol] 1.34 mg/dL Critically high 0.55-1.02 [facility] Comment on above: Performed By: #### B MP #### [facility] [address] [address] [address] Josef Fraire EGFR-AF VIET[place]ESE 47 mL/min/1.73m2 Critically low >=60 [facility] Comment on above: Performed By: #### B MP #### [facility] [address] [address] [address] Josef Fraire EGFR-NON AF VIET[place]ESE 39 mL/min/1.73m2 Critically low >=60 [facility] Comment on above: Performed By: #### B MP #### [facility] [address] [address] [address] Josef Fraire Glucose [Mass/Vol] 88 mg/dL Normal 74-106 [facility] Comment on above: Performed By: #### B MP #### [facility] [address] [address] [address] Josef Fraire Potassium [Moles/Vol] 4.1 mmol/L Normal 3.5-5.1 [facility] Comment on above: Performed By: #### B MP #### [facility] [address] [address] [address] Josef Fraire Sodium [Moles/Vol] 137 mmol/L Normal 136-145 [facility] Comment on above: Performed By: #### B MP #### [facility] [address] [address] [address] Josef Fraire Urea nitrogen [Mass/Vol] 22.0 mg/dL Critically high 7.0-18.0 [facility] Comment on above: Performed By: #### B MP #### [facility] [address] [address] [address] Josef Fraire Urea nitrogen/Creatinine [Mass ratio] 16.4 mg/mg Normal [facility] Comment on above: Performed By: #### B MP #### [facility] [address] [address] [address] Josef Fraire PROF CHEM 8 (BAS METB)on Anion gap [Moles/Vol] 9.5 mmol/L Normal [facility] Comment on above: Performed By: #### B MP #### [facility] [address] [address] [address] Josef Fraire Calcium [Mass/Vol] 9.1 mg/dL Normal 8.5-10.1 [facility] Comment on above: Performed By: #### B MP #### [facility] [address] [address] [address] Josef Fraire Chloride [Moles/Vol] 96 mmol/L Critically low 98-107 [facility] Comment on above: Performed By: #### B MP #### [facility] [address] [address] [address] Josef Fraire CO2 [Moles/Vol] 32.5 mmol/L Critically high 21.0-32.0 [facility] Comment on above: Performed By: #### B MP #### [facility] [address] [address] [address] Josef Fraire Creatinine [Mass/Vol] 0.76 mg/dL Normal 0.55-1.02 [facility] Comment on above: Performed By: #### B MP #### [facility] [address] [address] [address] Josef Fraire EGFR-AF VIET[place]ESE >60 Normal >=60 [facility] Comment on above: Performed By: #### B MP #### [facility] [address] [address] [address] Josef Fraire EGFR-NON AF VIET[place]ESE >60 Normal >=60 [facility] Comment on above: Performed By: #### B MP #### [facility] [address] [address] [address] Josef Fraire Glucose [Mass/Vol] 95 mg/dL Normal 74-106 [facility] Comment on above: Performed By: #### B MP #### [facility] [address] [address] [address] Josef Fraire Potassium [Moles/Vol] 3.0 mmol/L Critically low 3.5-5.1 [facility] Comment on above: Performed By: #### B MP #### [facility] [address] [address] [address] Josef Fraire Sodium [Moles/Vol] 135 mmol/L Critically low 136-145 [facility] Comment on above: Performed By: #### B MP #### [facility] [address] [address] [address] Josef Fraire Urea nitrogen [Mass/Vol] 9.0 mg/dL Normal 7.0-18.0 [facility] Comment on above: Performed By: #### B MP #### [facility] [address] [address] [address] Josef Fraire Urea nitrogen/Creatinine [Mass ratio] 11.8 mg/mg Normal [facility] Comment on above: Performed By: #### B MP #### [facility] [address] [address] [address] 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 This test has not been FDA [...] is terminated or revoked sooner. PERFORMED BY: [place] [address] PATHOLOGIST SIDING APPLICATOR JOSUÉ LEE M.D. Performed By: #### C OVID 19 [facility] #### [address] COVID-19 Positive/NegativeOr dered By: Gabriel Qiu on 12-21-2021 SARS-CoV-2 (COVID-19) N gene CHRIS+probe Ql (Resp) Negative Negative [facility] Comment on above: Testing for SARS-CoV -2 by RT-PCR This test was developed and its performance characteristics determined by [employer] (BD) and validated at the [facility]. This test has not been FDA [...] terminated or revoked sooner. Basic Metabolic Panelon 07- Calcium [Mass/Vol] 9.7 mg/dL Normal 8.2-10.2 [facility] Comment on above: Result Comment: PERF ORMED BY: [place] [address] PATHOLOGIST SIDING APPLICATOR JOSUÉ LEE M.D. Performed By: #### C BC, BMP #### [address] Chloride [Moles/Vol] 104 mmol/L Normal 95-114 [facility] Comment on above: Performed By: #### C BC, BMP #### [address] CO2 [Moles/Vol] 26.9 mmol/L Normal 22.0-30.0 [facility] Comment on above: Performed By: #### C BC, BMP #### [address] Creatinine [Mass/Vol] 0.71 mg/dL Normal 0.44-1.03 [facility] Comment on above: Performed By: #### C BC, BMP #### [place] [address] [place] Estimated GFR ( Juliette > 60 Normal [facility] Comment on above: Result Comment: GFR estimated reference range: According to KDOQI guidelines, <60 ml/min/1.73m2 is sufficient to diagnose a patient with chronic kidney disease. Performed By: #### C BC, BMP #### [facility] [address] Estimated GFR (Non- Am > 60 Normal [facility] Comment on above: Performed By: #### C BC, BMP #### [facility] [address] Glucose [Mass/Vol] 81 mg/dL Normal 70-100 [facility] Comment on above: Result Comment: [place] Glucose Reference Range is dependent on time and content of last meal. Glucose of more than 200 mg/dL in a nonstressed, ambulatory subject supports the diagnosis of Diabetes Mellitus. ADA recommended reference range Performed By: #### C BC, BMP #### [facility] [address] Potassium [Moles/Vol] 4.1 mmol/L Normal 3.5-5.1 [facility] Comment on above: Performed By: #### C BC, BMP #### [facility] [address] Sodium [Moles/Vol] 138 mmol/L Normal 136-146 [facility] Comment on above: Performed By: #### C BC, BMP #### [facility] [address] Urea nitrogen [Mass/Vol] 7 mg/dL Low 9-23 [facility] Comment on above: Performed By: #### C BC, BMP #### [facility] [address] Basophils Auto (Bld) [#/Vol] Ordered By: Gabriel Qiu on 12-11-2021 Basophils (Bld) [#/Vol] 0.1 10*3/uL 0.0-0.2 [facility] Basophils/100 WBC Auto (Bld) Ordered By: Gabriel Qiu on 12-11-2021 Basophils/100 WBC (Bld) 0.9 % . [facility] Blood hemoglobin measurement (mass/volume)Ordered By: Gabriel Qiu on 12-11-2021 Hemoglobin (Bld) [Mass/Vol] 15.1 g/dL 11.8-15.4 [facility] Blood leukocytes automated c ount (number/volume)Ordered By: Gabriel Qiu on 12-11-2021 WBC (Bld) [#/Vol] 9.0 10*3/uL 4.5-11.0 [facility] Complete Blood Count Auto Di ffon 12-11-2021 Basophils (Bld) [#/Vol] 0.1 10*3/uL Normal 0.0-0.2 [facility] Comment on above: Result Comment: PERF ORMED BY: [place] [address] PATHOLOGIST SIDING APPLICATOR JOSUÉ LEE M.D. Performed By: #### C BC, BMP #### [address] Basophils/100 WBC (Bld) 0.9 % Normal . [facility] Comment on above: Performed By: #### C BC, BMP #### [address] Eosinophils (Bld) [#/Vol] 0.1 10*3/uL Normal 0.0-0.45 [facility] Comment on above: Performed By: #### C BC, BMP #### [address] Eosinophils/100 WBC (Bld) 1.3 % Normal . [facility] Comment on above: Performed By: #### C BC, BMP #### [address] Erythrocyte distribution width (RBC) [Ratio] 14.4 % Normal 11.9-15.3 [facility] Comment on above: Performed By: #### C BC, BMP #### [address] Hematocrit (Bld) [Volume fraction] 45.2 % Normal 34.0-46.4 [facility] Comment on above: Performed By: #### C BC, BMP #### [address] Hemoglobin (Bld) [Mass/Vol] 15.1 g/dL Normal 11.8-15.4 [facility] Comment on above: Performed By: #### C BC, BMP #### [facility] [address] [place] [address] [place] Lymphocytes (Bld) [#/Vol] 1.8 10*3/uL Normal 1.00-4.8 [facility] Comment on above: Performed By: #### C BC, BMP #### [facility] [address] Lymphocytes/100 WBC (Bld) 19.7 % Normal . [facility] Comment on above: Performed By: #### C BC, BMP #### [facility] [address] MCH (RBC) [Entitic mass] 30.0 pg Normal 24.7-34.3 [facility] Comment on above: Performed By: #### C BC, BMP #### [facility] [address] MCV (RBC) [Entitic vol] 89.4 fL Normal 80-100 [facility] Comment on above: Performed By: #### C BC, BMP #### [facility] [address] Mean Corpuscular HGB Conc 33.5 g/dL Normal 32.0-35.0 [facility] Comment on above: Performed By: #### C BC, BMP #### [facility] [address] [place] [address] [place] Monocytes (Bld) [#/Vol] 0.6 10*3/uL Normal 0.0-0.8 [facility] Comment on above: Performed By: #### C BC, BMP #### [facility] [address] [place] [address] [place] Monocytes/100 WBC (Bld) 6.8 % Normal . [facility] Comment on above: Performed By: #### C BC, BMP #### [facility] [address] Neutrophils (Bld) [#/Vol] 6.4 10*3/uL Normal 1.8-7.7 [facility] Comment on above: Performed By: #### C BC, BMP #### [facility] [address] [place] [address] [place] Neutrophils/100 WBC (Bld) 71.3 % Normal . [facility] Comment on above: Performed By: #### C BC, BMP #### [facility] [address] [place] [address] [place] Nucleated RBC/100 WBC (Bld) [Ratio] 0.0 % Normal 0-0.5 [facility] Comment on above: Performed By: #### C BC, BMP #### [facility] [address] Platelet mean volume (Bld) [Entitic vol] 9.5 fL Normal 6.3-10.7 [facility] Comment on above: Performed By: #### C BC, BMP #### [facility] [address] [place] [address] [place] Platelets (Bld) [#/Vol] 245 10*3/uL Normal 150-450 [facility] Comment on above: Performed By: #### C BC, BMP #### [facility] [address] [place] [address] [place] RBC (Bld) [#/Vol] 5.05 10*6/uL High 3.60-5.00 [facility] Comment on above: Performed By: #### C BC, BMP #### [facility] [address] [place] [address] [place] WBC (Bld) [#/Vol] 9.0 10*3/uL Normal 4.5-11.0 [facility] Comment on above: Performed By: #### C BC, BMP #### [facility] [address] [place] [address] [place] Creatinine and Glomerular fi ltration rate.predicted panel (S/P/Bld)Ordered By: Gabriel Qiu on 12-11-2021 Creatinine [Mass/Vol] 0.71 mg/dL 0.44-1.03 [facility] ECG 12 lead ECGon 12-11-2021 ECG 12 lead ECG [facility] [place] [address] Electrocardiograph Report Signed Patient: Cydney Villa MR#: [id number] : 1950 Acct:[id number] Age/Sex: 71 / F ADM Date: 12/11/21 Loc: PS Room: Type: [facility] Attending Dr: Gabriel Qiu DO Ordering [...] Signed By Alberto Gray MD 918 Normal [facility] Eosinophils Auto (Bld) [#/Vo l]Ordered By: Gabriel Qiu on 12-11-2021 Eosinophils (Bld) [#/Vol] 0.1 10*3/uL 0.0-0.45 [facility] Eosinophils/100 WBC Auto (Bl d)Ordered By: Gabriel Qiu on 12-11-2021 Eosinophils/100 WBC (Bld) 1.3 % . [facility] Erythrocyte distribution wid th Auto (RBC) [Ratio]Ordered By: Gabriel Qiu on 12-11-2021 Erythrocyte distribution width (RBC) [Ratio] 14.4 % 11.9-15.3 [facility] Estimated glomerular filtrat ion rate (GFR) non- AmericanOrdered By: Gabriel Qiu on 12-11-2021 GFR/1.73 sq M.predicted among non-blacks MDRD (S/P/Bld) [Vol rate/Area] > 60 mL/Min [facility] Hematocrit Auto (Bld) [Volum e fraction]Ordered By: Gabriel Qiu on 12-11-2021 Hematocrit (Bld) [Volume fraction] 45.2 % 34.0-46.4 [facility] Laboratory - Hematology and Cell countsOrdered By: Gabriel Qiu on 12-11-2021 Nucleated RBC/100 WBC (Bld) [Ratio] 0.0 % 0-0.5 [facility] Lymphocytes Auto (Bld) [#/Vo l]Ordered By: Gabriel Qiu on 12-11-2021 Lymphocytes (Bld) [#/Vol] 1.8 10*3/uL 1.00-4.8 [facility] Lymphocytes/100 WBC Auto (Bl d)Ordered By: Gabriel Qiu on 12-11-2021 Lymphocytes/100 WBC (Bld) 19.7 % . [facility] MCH Auto (RBC) [Entitic mass ]Ordered By: Gabriel Qiu on 12-11-2021 MCH (RBC) [Entitic mass] 30.0 pg 24.7-34.3 [facility] MCHC Auto (RBC) [Mass/Vol]Or dered By: Gabriel Qiu on 12-11-2021 MCHC (RBC) [Mass/Vol] 33.5 g/dL 32.0-35.0 [facility] MCV Auto (RBC) [Entitic vol] Ordered By: Gabriel Qiu on 12-11-2021 MCV (RBC) [Entitic vol] 89.4 fL 80-100 [facility] Monocytes Auto (Bld) [#/Vol] Ordered By: Gabriel Qiu on 12-11-2021 Monocytes (Bld) [#/Vol] 0.6 10*3/uL 0.0-0.8 [facility] Monocytes/100 WBC Auto (Bld) Ordered By: Gabriel Qiu on 12-11-2021 Monocytes/100 WBC (Bld) 6.8 % . [facility] Neutrophils Auto (Bld) [#/Vo l]Ordered By: Gabriel Qiu on 12-11-2021 Neutrophils (Bld) [#/Vol] 6.4 10*3/uL 1.8-7.7 [facility] Neutrophils/100 WBC Auto (Bl d)Ordered By: Gabriel Qiu on 12-11-2021 Neutrophils/100 WBC (Bld) 71.3 % . [facility] No Panel InformationOrdered By: Gabriel Qiu on 12-11-2021 Estimated GFR () > 60 mL/Min [facility] Comment on above: GFR estimated refere nce range: According to KDOQI guidelines, <60 ml/min/1.73m2 is sufficient to diagnose a patient with chronic kidney disease. Pharmacy Creatinine Clearance (Chem N/A [facility] Platelet mean volume Auto (B ld) [Entitic vol]Ordered By: Gabriel Qiu on 12-11-2021 Platelet mean volume (Bld) [Entitic vol] 9.5 fL 6.3-10.7 [facility] Platelets Auto (Bld) [#/Vol] Ordered By: Gabriel Qiu on 12-11-2021 Platelets (Bld) [#/Vol] 245 10*3/uL 150-450 [facility] RBC Auto (Bld) [#/Vol]Ordere d By: Gabriel Qiu on 12-11-2021 RBC (Bld) [#/Vol] 5.05 10*6/uL 3.60-5.00 [facility] Serum or plasma calcium malcom urement (mass/volume)Ordered By: Gabriel Qiu on 12-11-2021 Calcium [Mass/Vol] 9.7 mg/dL 8.2-10.2 [facility] Serum or plasma chloride andreea surement (moles/volume)Ordered By: Gabriel Qiu on 12-11-2021 Chloride [Moles/Vol] 104 mmol/L 95-114 [facility] Serum or plasma glucose malcom urement (mass/volume)Ordered By: Gabriel Qiu on 12-11-2021 Glucose [Mass/Vol] 81 mg/dL 70-100 [facility] Comment on above: ADA recommended refe [...] on 12-11-2021 Sodium [Moles/Vol] 138 mmol/L 136-146 [facility] Serum or plasma total carbon dioxide measurement (moles/volume)Ordered By: Gabriel Qiu on 12-11-2021 CO2 [Moles/Vol] 26.9 mmol/L 22.0-30.0 [facility] Serum or plasma urea nitroge n measurement (mass/volume)Ordered By: Gabriel Qiu on 12-11-2021 Urea nitrogen [Mass/Vol] 7 mg/dL 9-23 [facility] COVID-19 Antigenon 2 COVID-19 Antigen Healthcare [...] developed and its performance characteristic determined by [employer] and validated at [facility]. This test has not been FDA [...] for SARS Antigen by [employer] PERFORMED BY: [place] [address] PATHOLOGIST SIDING APPLICATOR JOSUÉ LEE M.D. Normal [facility] Comment on above: Performed By: #### C OVID-19 LE, SOFIANEG #### [address] COVID-19 SOFIAOrdered By: Ruben Ziegler on 11-03-2021 SARS-CoV+SARS-CoV-2 (COVID-19) Ag IA.rapid Ql (Resp) Negative Negative [facility] Comment on above: This is a duplicate Le SARS Antigen (MARITZA) result to be used for statistical tracking purpose only. No Panel InformationOrdered By: Gume Ziegler on 11-03-2021 SARS Antigen (LFIA) [facility] Le Ag Negativeon 11-04-19 22 Le Ag Negative Negative Normal Negative [facility] Comment on above: Result Comment: This is a duplicate Le SARS Antigen (MARITZA) result to be used for statistical tracking purpose only. PERFORMED BY: [place] [address] PATHOLOGIST SIDING APPLICATOR JOSUÉ LEE M.D. Performed By: #### C OVID-19 LE, SOFIANEG #### [address] MG MAMM SCREEN 3D TERESA CADon 10-27-2021 MG MAMM SCREEN 3D TERESA CAD Patient: CYDNEY VILLA Exam Date: 10/27/2021 : 1950 Gender:F Ordering : SHAIKH Denise RAMIREZ . Admission #: [id number] Family : Order #: [id number] CLICK HERE TO VIEW EXAM RADIOLOGY REPORT [...] Treatments None Family Cancers None LOCATION: [facility] BREAST COMPOSITION: Scattered areas fibroglandular density. [...] MD on 10/27/2021 at 14:15 Normal [facility] CBC AUTO DIFFon 10-13-2021 BASO # 0.0 103/ul Normal 0.0-0.1 [facility] Comment on above: Performed By: #### C BC #### [facility] [address] [place] [address] Dr. Josef Fraire Basophils/100 WBC (Bld) 0.5 % Normal 0.2-2.0 [facility] Comment on above: Performed By: #### C BC #### [facility] [address] [place] [address] Dr. Josef Fraire EO # 0.2 103/ul Normal 0.0-0.7 [facility] Comment on above: Performed By: #### C BC #### [facility] [address] [place] [address] Dr. Josef Fraire Eosinophils/100 WBC (Bld) 2.4 % Normal 0.9-7.0 [facility] Comment on above: Performed By: #### C BC #### [facility] [address] [place] [address] Dr. Josef Fraire Erythrocyte distribution width (RBC) [Ratio] 13.9 % Normal 11.0-15.0 [facility] Comment on above: Performed By: #### C BC #### [facility] [address] [place] [address] Dr. Josef Fraire Hematocrit (Bld) [Volume fraction] 44.7 % Normal 36.0-48.0 [facility] Comment on above: Performed By: #### C BC #### [facility] [address] [place] [address] Dr. Josef Fraire Hemoglobin (Bld) [Mass/Vol] 14.4 g/dL Normal 12.0-16.0 [facility] Comment on above: Performed By: #### C BC #### [facility] [address] [place] [address] Dr. Josef Fraire IG # 0.03 10e3/ul Normal 0.00-0.03 [facility] Comment on above: Performed By: #### C BC #### [facility] [address] [place] [address] Dr. Josef Fraire IG % 0.4 % Normal 0.0-0.5 [facility] Comment on above: Performed By: #### C BC #### [facility] [address] [place] [address] Dr. Josef Fraire LYMPH # 2.0 103/ul Normal 1.2-3.8 [facility] Comment on above: Performed By: #### C BC #### [facility] [address] [place] [address] Dr. Josef Fraire Lymphocytes/100 WBC (Bld) 25.1 % Normal 20.5-60.0 [facility] Comment on above: Performed By: #### C BC #### [facility] [address] [place] [address] Dr. Josef Fraire MANUAL DIFF REQ NO Normal [facility] Comment on above: Performed By: #### C BC #### [facility] [address] [place] [address] Dr. Josef Fraire MCH (RBC) [Entitic mass] 29.9 pg Normal 26.7-34.0 [facility] Comment on above: Performed By: #### C BC #### [facility] [address] [place] [address] Dr. Josef Fraire MCHC (RBC) [Mass/Vol] 32.2 g/dL Normal 29.9-35.2 [facility] Comment on above: Performed By: #### C BC #### [facility] [address] [place] [address] Dr. Josef Fraire MCV (RBC) [Entitic vol] 92.7 fL Normal 81.0-99.0 [facility] Comment on above: Performed By: #### C BC #### [facility] [address] [place] [address] Dr. Josef Fraire MONO # 0.5 103/ul Normal 0.3-0.8 [facility] Comment on above: Performed By: #### C BC #### [facility] [address] [place] [address] Dr. Josef Fraire Monocytes/100 WBC (Bld) 6.6 % Normal 1.7-12.0 [facility] Comment on above: Performed By: #### C BC #### [facility] [address] [place] [address] Dr. Josef Fraire NEUT # 5.1 103/ul Normal 1.4-6.5 [facility] Comment on above: Performed By: #### C BC #### [facility] [address] [place] [address] Dr. Josef Fraire Neutrophils/100 WBC (Bld) 65.0 % Normal 43.0-75.0 [facility] Comment on above: Performed By: #### C BC #### [facility] [address] [place] [address] Dr. Josef Fraire Platelet mean volume (Bld) [Entitic vol] 11.9 fL Normal 9.5-13.5 [facility] Comment on above: Performed By: #### C BC #### [facility] [address] [place] [address] Dr. Josef Fraire PLT 217 103/ul Normal 150-450 [facility] Comment on above: Performed By: #### C BC #### [facility] [address] [place] [address] Dr. Josef Fraire RBC 4.82 106/ul Normal 4.20-5.40 [facility] Comment on above: Performed By: #### C BC #### [facility] [address] [address] [address] Josef Fraire WBC 7.9 103/ul Normal 4.0-11.0 [facility] Comment on above: Performed By: #### C BC #### [facility] [address] [address] [address] Josef Fraire FERRITINon 10-13-2021 Ferritin [Mass/Vol] 56.0 ng/mL Normal 8.0-252.0 [facility] Comment on above: Performed By: #### F ERR #### [facility] [address] [address] [address] Josef Fraire LIPID PROFILEon 10-13-2021 CHOL-HDL RATIO NORM SEE BELOW Normal [facility] Comment on above: Result Comment: 3.3 - 4.4 LOW RISK 4.4 - 7.1 AVERAGE RISK 7.1 - 11.0 MODERATE RISK >11.0 HIGH RISK Performed By: #### L IPID, CMP #### [facility] [address] [address] [address] Josef Fraire Cholesterol [Mass/Vol] 156 mg/dL Normal <=200 [facility] Comment on above: Performed By: #### L IPID, CMP #### [facility] [address] [address] [address] Josef Fraire Cholesterol in HDL [Mass/Vol] 53 mg/dL Normal 40-60 [facility] Comment on above: Performed By: #### L IPID, CMP #### [facility] [address] [address] [address] Josef Fraire Cholesterol in LDL [Mass/Vol] 85.0 mg/dL Normal [facility] Comment on above: Performed By: #### L IPID, CMP #### [facility] [address] [address] [address] Josef Fraire Cholesterol.total/Chol esterol in HDL [Mass ratio] 2.9 {ratio} Normal [facility] Comment on above: Performed By: #### L IPID, CMP #### [facility] [address] [address] [address] Josef Fraire HDL NORMAL > or = 60 mg/dl - LO W CARDIOVASCULAR RISK <40 mg/dl - HIGH CARDIOVASCULAR RISK Normal [facility] Comment on above: Performed By: #### L IPID, CMP #### [facility] [address] [address] [address] Josef Fraire LDL CALC NORMAL SEE BELOW Normal [facility] Comment on above: Result Comment: <100 mg/dl OPTIMAL 100 - 129 mg/dl NEAR OR ABOVE OPTIMAL 130 - 159 mg/dl BORDERLINE HIGH 160 - 189 mg/dl HIGH >190 mg/dl VERY HIGH Performed By: #### L IPID, CMP #### [facility] [address] [place] [address] Dr. Josef Fraire Triglyceride [Mass/Vol] 90 mg/dL Normal <=150 [facility] Comment on above: Performed By: #### L IPID, CMP #### [facility] [address] [place] [address] Dr. Josef Fraire VLDL CALC 18.0 mg/dL Normal [facility] Comment on above: Performed By: #### L IPID, CMP #### [facility] [address] [place] [address] Dr. Josef Fraire PROF 14(COMP METB)on 022 Albumin [Mass/Vol] 3.5 g/dL Normal 3.4-5.0 [facility] Comment on above: Performed By: #### L IPID, CMP #### [facility] [address] [place] [address] Dr. Josef Fraire Albumin/Globulin [Mass ratio] 1.0 {ratio} Normal [facility] Comment on above: Performed By: #### L IPID, CMP #### [facility] [address] [place] [address] Dr. Josef Fraire ALP [Catalytic activity/Vol] 90 U/L Normal 46-116 [facility] Comment on above: Performed By: #### L IPID, CMP #### [facility] [address] [place] [address] Dr. Josef Fraire ALT [Catalytic activity/Vol] 25 U/L Normal 14-59 [facility] Comment on above: Performed By: #### L IPID, CMP #### [facility] [address] [place] [address] Dr. Josef Fraire Anion gap [Moles/Vol] 9.0 mmol/L Normal [facility] Comment on above: Performed By: #### L IPID, CMP #### [facility] [address] [place] [address] Dr. Josef Fraire AST [Catalytic activity/Vol] 17 U/L Normal 15-37 [facility] Comment on above: Performed By: #### L IPID, CMP #### [facility] [address] [place] [address] Dr. Josef Fraire Bilirubin [Mass/Vol] 0.4 mg/dL Normal 0.2-1.0 [facility] Comment on above: Performed By: #### L IPID, CMP #### [facility] [address] [place] [address] Dr. Josef Fraire Calcium [Mass/Vol] 9.1 mg/dL Normal 8.5-10.1 [facility] Comment on above: Performed By: #### L IPID, CMP #### [facility] [address] [place] [address] Dr. Josef Fraire Chloride [Moles/Vol] 105 mmol/L Normal 98-107 [facility] Comment on above: Performed By: #### L IPID, CMP #### [facility] [address] [place] [address] Dr. Josef Fraire CO2 [Moles/Vol] 27.9 mmol/L Normal 21.0-32.0 [facility] Comment on above: Performed By: #### L IPID, CMP #### [facility] [address] [place] [address] Dr. Josef Fraire Creatinine [Mass/Vol] 0.78 mg/dL Normal 0.55-1.02 [facility] Comment on above: Performed By: #### L IPID, CMP #### [facility] [address] [place] [address] Dr. Josef Fraire EGFR-AF [place]ESE >60 Normal >=60 [facility] Comment on above: Performed By: #### L IPID, CMP #### [facility] [address] [address] [address] Josef Fraire EGFR-NON AF VI[place]ESE >60 Normal >=60 [facility] Comment on above: Performed By: #### L IPID, CMP #### [facility] [address] [address] [address] Josef Fraire Globulin (S) [Mass/Vol] 3.5 g/dL Normal [facility] Comment on above: Performed By: #### L IPID, CMP #### [facility] [address] [place] [address] Dr. Josef Fraire Glucose [Mass/Vol] 89 mg/dL Normal 74-106 [facility] Comment on above: Performed By: #### L IPID, CMP #### [facility] [address] [address] [address] Josef Fraire Potassium [Moles/Vol] 4.3 mmol/L Normal 3.5-5.1 [facility] Comment on above: Performed By: #### L IPID, CMP #### [facility] [address] [place] [address] Dr. Josef Fraire Protein [Mass/Vol] 7.0 g/dL Normal 6.4-8.2 [facility] Comment on above: Performed By: #### L IPID, CMP #### [facility] [address] [address] [address] Josef Fraire Sodium [Moles/Vol] 140 mmol/L Normal 136-145 [facility] Comment on above: Performed By: #### L IPID, CMP #### [facility] [address] [address] [address] Josef Fraire Urea nitrogen [Mass/Vol] 8.0 mg/dL Normal 7.0-18.0 [facility] Comment on above: Performed By: #### L IPID, CMP #### [facility] [address] [place] [address] Dr. Josef Fraire Urea nitrogen/Creatinine [Mass ratio] 10.2 mg/mg Normal [facility] Comment on above: Performed By: #### L IPID, CMP #### [facility] [address] [place] [address] Dr. Josef Fraire Vital Signs Date Time Vital Sign Value Performing Clinician Facility 06-04-2024 09:16-0500 Body height 157.5 cm Sonu Connelly VIRTUALIZATION ARCHITECT Work Phone: [facility] 06-04-2024 09:16-0500 Body mass index (BMI) [Ratio] 25.83 kg/m2 Sonu Connelly VIRTUALIZATION ARCHITECT Work Phone: [facility] 06-04-2024 09:16-0500 Body temperature 97.2 [degF] Sonu Connelly VIRTUALIZATION ARCHITECT Work Phone: [facility] 06-04-2024 09:16-0500 Body weight 64.05 kg Sonu Connelly VIRTUALIZATION ARCHITECT Work Phone: [facility] 06-04-2024 09:16-0500 Diastolic blood pressure 68 mm[Hg] Sonu Connelly VIRTUALIZATION ARCHITECT Work Phone: [facility] 06-04-2024 09:16-0500 Heart rate 84 /min Sonu Connelly VIRTUALIZATION ARCHITECT Work Phone: [facility] 06-04-2024 09:16-0500 Respiratory rate 16 /min Sonu Connelly VIRTUALIZATION ARCHITECT Work Phone: [facility] 06-04-2024 09:16-0500 SaO2% (BldA) [Mass fraction] 96 % Sonu Connelly VIRTUALIZATION ARCHITECT Work Phone: [facility] 06-04-2024 09:16-0500 Systolic blood pressure 112 mm[Hg] Sonu Connelly VIRTUALIZATION ARCHITECT Work Phone: [facility] 02-21-2024 09:17-0400 Body height 157.5 cm Sonu Connelly VIRTUALIZATION ARCHITECT Work Phone: [facility] 02-21-2024 09:17-0400 Body mass index (BMI) [Ratio] 25.61 kg/m2 Sonu Connelly VIRTUALIZATION ARCHITECT Work Phone: [facility] 02-21-2024 09:17-0400 Body temperature 98.01 [degF] Sonu Connelly VIRTUALIZATION ARCHITECT Work Phone: [facility] 02-21-2024 09:17-0400 Body weight 63.5 kg Sonu Connelly VIRTUALIZATION ARCHITECT Work Phone: [facility] 02-21-2024 09:17-0400 Diastolic blood pressure 60 mm[Hg] Sonu Connelly VIRTUALIZATION ARCHITECT Work Phone: [facility] 02-21-2024 09:17-0400 Heart rate 60 /min Sonu Connelly VIRTUALIZATION ARCHITECT Work Phone: [facility] 02-21-2024 09:17-0400 Systolic blood pressure 110 mm[Hg] Sonu Connelly VIRTUALIZATION ARCHITECT Work Phone: [facility] 01-09-2024 07:56-0400 Body height 157.5 cm Richardson Rincon [employer]DEVELOPMENT SCIENTIST Work Phone: [facility] 01-09-2024 07:56-0400 Body mass index (BMI) [Ratio] 26.16 kg/m2 Richardson Rincon [employer]DEVELOPMENT SCIENTIST Work Phone: [facility] 01-09-2024 07:56-0400 Body weight 64.86 kg Richardson Rincon [employer]DEVELOPMENT SCIENTIST Work Phone: [facility] 01-09-2024 07:56-0400 Diastolic blood pressure 66 mm[Hg] Richardson Rincon [employer]-DEVELOPMENT SCIENTIST Work Phone: [facility] 01-09-2024 07:56-0400 Heart rate 72 /min Richardson Rincon [employer]DEVELOPMENT SCIENTIST Work Phone: [phone] [place] [address] 01-09-2024 07:56-0400 Systolic blood pressure 124 mm[Hg] Richardson Rincon [employer]DEVELOPMENT SCIENTIST Work Phone: [facility] 07-11-2023 12:38-0500 Body height 157.5 cm Jolly Smith MD Work Phone: [facility] 07-11-2023 12:38-0500 Body mass index (BMI) [Ratio] 25.97 kg/m2 Jolly Smith MD Work Phone: [facility] 07-11-2023 12:38-0500 Body weight 64.41 kg Jolly Smith MD Work Phone: [facility] 07-11-2023 12:38-0500 Diastolic blood pressure 76 mm[Hg] Jolly Smith MD Work Phone: [facility] 07-11-2023 12:38-0500 Heart rate 60 /min Jolly Smith MD Work Phone: [facility] 07-11-2023 12:38-0500 Systolic blood pressure 124 mm[Hg] Jolly Smith MD Work Phone: [facility] 06-23-2023 11:39-0500 Diastolic blood pressure 72 mm[Hg] Jolly Smith MD Work Phone: [facility] 06-23-2023 11:39-0500 Systolic blood pressure 110 mm[Hg] Jolly Smith MD Work Phone: [facility] 06-23-2023 10:49-0500 Heart rate 64 /min Jolly Smith MD Work Phone: [facility] 06-23-2023 10:48-0500 Body height 157.5 cm Jolly Smith MD Work Phone: [facility] 06-23-2023 10:48-0500 Body mass index (BMI) [Ratio] 26.34 kg/m2 Jolly Smith MD Work Phone: [facility] 06-23-2023 10:48-0500 Body weight 65.32 kg Jolly Smith MD Work Phone: [facility] 11-22-2022 09:10-0400 Body height 160.02 cm Gracia Woodruff Other [facility] Other 11-22-2022 09:10-0400 Body mass index (BMI) [Ratio] 25.98 kg/m2 Gracia Woodruff Other [facility] Other 11-22-2022 09:10-0400 Body temperature 97.8 [degF] Gracia Woodruff Other [facility] Other 11-22-2022 09:10-0400 Body weight 66.54 kg Gracia Woodruff Other [facility] Other 11-22-2022 09:10-0400 Diastolic blood pressure 56 mm[Hg] Gracia Woodruff Other [facility] Other 11-22-2022 09:10-0400 Respiratory rate 18 /min Gracia Woodruff Other [facility] Other 11-22-2022 09:10-0400 SaO2% (BldA) [Mass fraction] 95 % Gracia Woodruff Other [facility] Other 11-22-2022 09:10-0400 Systolic blood pressure 148 mm[Hg] Gracia Woodruff Other [facility] Other 12-23-2021 14:20-0400 Diastolic blood pressure 64 mm[Hg] DO Gume Ziegler Work Phone: [facility] 12-23-2021 14:20-0400 Heart rate 71 /min DO Gume Hykes Work Phone: [facility] 12-23-2021 14:20-0400 Respiratory rate 16 /min DO Gume Hykes Work Phone: [facility] 12-23-2021 14:20-0400 SaO2% (BldA) [Mass fraction] 96 % DO Gume Hykes Work Phone: [facility] 12-23-2021 14:20-0400 Systolic blood pressure 122 mm[Hg] DO Gume Hykes Work Phone: [facility] 12-23-2021 12:12-0400 Body height 157.48 cm DO Gume Hykes Work Phone: [facility] 12-23-2021 12:12-0400 Body mass index (BMI) [Ratio] 27 kg/m2 DO Gume Hykes Work Phone: [facility] 12-23-2021 12:12-0400 Body weight 67 kg DO Gume Hykes Work Phone: [facility] 12-23-2021 11:11-0400 Body temperature 97.9 [degF] DO Gume Hykes Work Phone: [facility] 11-05-2021 13:50-0400 Diastolic blood pressure 64 mm[Hg] DO Gume Hykes Work Phone: [facility] 11-05-2021 13:50-0400 Heart rate 77 /min DO Gume Hykes Work Phone: [facility] 11-05-2021 13:50-0400 Respiratory rate 16 /min DO Gume Hykes Work Phone: [facility] 11-05-2021 13:50-0400 SaO2% (BldA) [Mass fraction] 97 % DO Gume Hykes Work Phone: [facility] 11-05-2021 13:50-0400 Systolic blood pressure 118 mm[Hg] DO Gume Ziegler Work Phone: [facility] 11-05-2021 12:49-0400 Body height 160.02 cm DO Gume Ziegler Work Phone: [facility] 11-05-2021 12:49-0400 Body mass index (BMI) [Ratio] 25.3 kg/m2 DO Gume Ziegler Work Phone: [facility] 11-05-2021 12:49-0400 Body temperature 98.2 [degF] DO Gume Ziegler Work Phone: [facility] 11-05-2021 12:49-0400 Body weight 64.86 kg DO Gume Ziegler Work Phone: [facility] 05-06-2021 10:45-0500 Body height 160.02 cm Dede Garcia Other [facility] Other 05-06-2021 10:45-0500 Body mass index (BMI) [Ratio] 25.74 kg/m2 Dede Calvey Other [facility] Other 05-06-2021 10:45-0500 Body weight 65.91 kg Dede Calvey Other [facility] Other 04-08-2021 15:15-0500 Body height 160.02 cm Dede Calvrene Other [facility] Other 04-08-2021 15:15-0500 Body mass index (BMI) [Ratio] 25.33 kg/m2 Dede Calvey Other [facility] Other 04-08-2021 15:15-0500 Body weight 64.86 kg Dede Calvey Other [facility] Other Encounters Encounter Date Encounter Type Care Provider Facility Start: 06-04-2024 End: 06-04-2024 Bamboo flowsheet Sonu Goodmanpatrick VIRTUALIZATION ARCHITECT Work Phone: [facility] Start: 06-04-2024 End: 06-04-2024 Bamboo flowsheet Sonu Naiduzpatrick VIRTUALIZATION ARCHITECT Work Phone: [facility] Start: 06-04-2024 End: 06-04-2024 Office outpatient visit 15 minutes Sonu Connelly VIRTUALIZATION ARCHITECT Work Phone: [facility] Comment on above: Primary hypertension (CMS/HCC) (Primary Dx); Mixed hyperlipidemia (CMS/HCC); Age-related osteoporosis without current pathological fracture (CMS/HCC); Other emphysema (CMS/HCC); New onset a-fib (CMS/HCC); Seasonal allergic rhinitis due to other allergic trigger; Primary pulmonary hypertension (CMS/HCC); Gastroesophageal reflux disease without esophagitis; Restless legs syndrome; Encounter for screening mammogram for malignant neoplasm of breast Start: 06-04-2024 End: 06-04-2024 ambulatory SONU GOODMANPATRICK Not Available Start: 03-14-2024 End: 03-14-2024 Refill Sonu Landistrick VIRTUALIZATION ARCHITECT Work Phone: [facility] Comment on above: Seasonal allergic rh initis due to other allergic trigger (Primary Dx); Other emphysema (CMS/HCC) Start: 02-21-2024 End: 02-21-2024 Bamboo flowsheet Sonu Naiduzpatrick VIRTUALIZATION ARCHITECT Work Phone: [facility] Start: 02-21-2024 End: 02-21-2024 Bamboo flowsheet Sonu Connelly VIRTUALIZATION ARCHITECT Work Phone: [facility] Start: 02-21-2024 End: 02-21-2024 Office outpatient visit 15 minutes Sonu Goodmanpatrick VIRTUALIZATION ARCHITECT Work Phone: [facility] Comment on above: Primary hypertension (CMS/HCC) (Primary Dx); Age-related osteoporosis without current pathological fracture (CMS/HCC); Gastroesophageal reflux disease without esophagitis; Chronic epigastric pain; Cigarette nicotine dependence without complication; Other emphysema (CMS/HCC); Mixed hyperlipidemia (CMS/HCC) Start: 02-21-2024 End: 02-21-2024 ambulatory SONU CONNELLY Not Available Start: 01-09-2024 End: 01-09-2024 Office outpatient visit 15 minutes Richardson K Rincon [employer]-DEVELOPMENT SCIENTIST Work Phone: [facility] Comment on above: care home current us e of anticoagulant therapy (Primary Dx); Atrial 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, unspecified type (Multi); Paroxysmal atrial 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 (Multi); Primary hypertension; Mixed hyperlipidemia; Current every day smoker Start: 01-09-2024 End: 01-09-2024 ambulatory RICHARDSON [facility] Ambulatory Start: 09-27-2023 End: 09-27-2023 ambulatory SHAIKH ASHLEY Not Available Start: 07-14-2023 Clinisync Result Encounter Generic External Data Provider [facility] External Department Unsolicited Start: 07-14-2023 Clinisync Result Encounter Generic External Data Provider [facility] External Department Unsolicited Start: 07-11-2023 End: 07-11-2023 Office outpatient visit 25 minutes Jolly Smith MD Work Phone: [facility] Comment on above: care home current us e of anticoagulant therapy (Primary Dx); Atrial 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, unspecified type (CMS/HCC); Gastroesophageal reflux disease, unspecified whether esophagitis present; Paroxysmal atrial 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 (CMS/HCC); Primary hypertension; Mixed hyperlipidemia; Hypercoagulable state due to 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 (CMS/HCC); Current every day smoker; Encounter to discuss test results Start: 07-11-2023 End: 07-11-2023 ambulatory [facility] Start: 07-07-2023 End: 07-07-2023 Subsequent hospital visit by physician Florencia Chatterjee 1 [facility] Start: 07-07-2023 End: 07-07-2023 ambulatory [facility] Start: 06-29-2023 End: 06-29-2023 ambulatory SHAIKH ASHLEY Not Available Start: 06-23-2023 End: 06-23-2023 Office outpatient new 45 minutes Jolly Smith MD Work Phone: [facility] Comment on above: Atrial 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, unspecified type (CMS/HCC); Current every day smoker; Gastroesophageal reflux disease, unspecified whether esophagitis present; Hypercoagulable state due to 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 (CMS/HCC); 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 Start: 09-13-2022 ambulatory Facility:[facility] Start: 04-07-2022 End: 04-08-2022 ambulatory ROONEY H FAWWABarbara Facility:[facility] Start: 01-28-2022 End: 01-28-[address] YORDAN BAÑUELOS Facility:[facility] Start: 01-27-2022 End: 01-28-2022 ambulatory ROONEY H FAWWAD Facility:[facility] Start: 01-18-2022 End: 01-19-2022 ambulatory ROONEY H FAWWAD Facility:[facility] Start: 12-23-2021 End: 12-23-2021 ambulatory Rooney Fawwad Facility:[facility] Start: 12-23-2021 End: 12-23-2021 Admission to same day surgery center DO Gume Ziegler Work Phone: [facility] [place] Start: 12-21-2021 End: 12-21-2021 ambulatory Rooney Fawwabarbara Facility:[facility] Start: 12-21-2021 End: 12-21-2021 Patient encounter procedure DO Gume Ziegler Work Phone: [facility] Start: 12-11-2021 End: 12-11-2021 ambulatory Shaikh Ashley Facility:[facility] Start: 12-11-2021 End: 12-11-2021 Patient encounter procedure DO Gume Ziegler Work Phone: [facility] Start: 12-09-2021 End: 12-09-2021 ambulatory Gume Zieglre Other [facility] Other Start: 12-09-2021 Telephone encounter Gume Ziegler [facility] Start: 11-27-2021 End: 11-27-2021 ambulatory Gume Ziegler Other [facility] Other Start: 11-27-2021 Telephone encounter Gume Tellezphilippe [facility] Start: 11-09-2021 End: 11-09-2021 ambulatory Gume Toney Other [facility] Other Start: 11-09-2021 Telephone encounter Gume Ziegler [facility] Start: 11-05-2021 End: 11-05-2021 ambulatory Gume Mi Ziegler Facility:[facility] Start: 11-05-2021 End: 11-05-2021 Admission to same day surgery center DO Gume Ziegler Work Phone: [facility] Start: 11-03-2021 End: 11-03-2021 ambulatory Gume Mi Ziegler Facility:[facility] Start: 11-03-2021 End: 11-03-2021 Patient encounter procedure DO Gume Ziegler Work Phone: [facility] Start: 10-28-2021 End: 10-28-2021 ambulatory Gume Toney Other [facility] Other Start: 10-28-2021 Telephone encounter Gume Toney [facility] Start: 10-27-2021 End: 10-28-2021 ambulatory SHAIKH Erika RAMIREZ Facility:[facility] Start: 10-13-2021 End: 10-14-2021 ambulatory SHAIKH Erika RAMIREZ Facility:[facility] Start: 05-06-2021 End: 05-06-2021 ambulatory Dede Garcia Other [facility] Other Start: 05-06-2021 Office outpatient vi sit 10 minutes Dedearturo Garcia [facility] Start: 04-14-2021 End: 04-14-2021 ambulatory Jaime Paulino Other [facility] Other Start: 04-14-2021 Telephone encounter [facility] Start: 04-08-2021 End: 04-08-2021 ambulatory Dede Garcia Other [facility] Other Start: 04-08-2021 Office outpatient vi sit 15 minutes Dede Calvey [facility] Start: 03-11-2021 Office outpatient vi sit 15 minutes Dede Calvey [facility] Procedures Date Procedure Procedure Detail Performing Clinician Start: 07-14-2023 ALL CBC WITH AUTO DIFF Generic External Data Provider Start: 07-11-2023 FOLLOW UP IN CARDIOLOGY JOLLY SMITH Start: 07-07-2023 NUCLEAR STRESS TEST DOREEN SMITH Start: 07-07-2023 Cv strs tst xers&/or rx cont ecg trcg only Jolly Smith MD Work Phone: Start: 06-23-2023 CBC panel - Blood by Automated count JOLLY SMITH Start: 06-23-2023 Comprehensive metabo lic 2000 panel - Serum or Plasma JOLLY SMITH Start: 06-23-2023 Lipid panel [facility] Start: 06-23-2023 Thyrotropin [Units/v olume] in Serum or Plasma JOLLY SMITH Start: 06-23-2023 THYROXINE, FREE JOLLY SMITH Start: 06-23-2023 TRIIODOTHYRONINE, TOTAL JOLLY SMITH Start: 06-23-2023 ECG 12-LEAD JOLLY MOH CYNTHIA Start: 06-23-2023 Ecg routine ecg w/le [...] Screening for malign ant neoplasm of colon [facility] Start: 08-29-2031 DTaP/Tdap/Td Vaccine s (2 - Td or Tdap) DTaP/Tdap/Td Vaccines (2 - Td or Tdap) [facility] Start: 09-03-2024 End: 09-03-2024 Patient encounter procedure 09/03/2024 9:30 AM EDT Office Visit [facility] [address] [place] [address] Sonu Connelly, JOSH [address] [place] [address] [facility] Start: 07-19-2024 End: 07-19-2024 Patient encounter procedure [facility] Start: 07-11-2024 End: 01-08-2025 CBC panel - Blood by Automated count CBC Lab Routine Atrial 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, unspecified type (Multi) care home current use of anticoagulant therapy Expected: 07/11/2024 (Approximate), Expires: 01/08/2025 [facility] Work Phone: Comment on above: Expected: 07/11/2024 (Approximate), Expires: 01/08/2025 Start: 07-11-2024 End: 01-08-2025 Comprehensive metabolic 2000 panel - Serum or Plasma Comprehensive Metabolic Panel Lab Routine Atrial 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, unspecified type (Multi) care home current use of anticoagulant therapy Expected: 07/11/2024 (Approximate), Expires: 01/08/2025 [facility] Service Area Work Phone: Comment on above: Expected: 07/11/2024 (Approximate), Expires: 01/08/2025 Start: 07-11-2024 End: 01-08-2025 Lipid 1996 panel - Serum or Plasma Lipid Panel Lab Routine Atrial 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, unspecified type (Multi) Mixed hyperlipidemia Expected: 07/11/2024 (Approximate), Expires: 01/08/2025 [facility] Work Phone: Comment on above: Expected: 07/11/2024 (Approximate), Expires: 01/08/2025 Start: 06-04-2024 End: 06-04-2025 CBC W Auto Differential panel - Blood CBC and differential Lab Routine Primary hypertension (CMS/HCC) Expected: 06/04/2024 (Approximate), Expires: 06/04/2025 [facility] Comment on above: Expected: 06/04/2024 (Approximate), Expires: 06/04/2025 Start: 06-04-2024 End: 06-04-2025 Comprehensive metabolic 2000 panel - Serum or Plasma Comprehensive metabolic panel Lab Routine Primary hypertension (CMS/HCC) Expected: 06/04/2024 (Approximate), Expires: 06/04/2025 [facility] Comment on above: Expected: 06/04/2024 (Approximate), Expires: 06/04/2025 Start: 06-04-2024 End: 06-04-2025 Lipid 1996 panel - Serum or Plasma Lipid panel Lab Routine Mixed hyperlipidemia (CMS/HCC) Expected: 06/04/2024 (Approximate), Expires: 06/04/2025 [facility] Comment on above: Expected: 06/04/2024 (Approximate), Expires: 06/04/2025 Start: 06-04-2024 End: 08-02-2025 MG Breast - bilateral Screening Bilateral screening mammogram Imaging Routine Encounter for screening mammogram for malignant neoplasm of breast Expected: 06/04/2024, Expires: 08/02/2025 [facility] Comment on above: Expected: 06/04/2024 , Expires: 08/02/2025 Start: 06-04-2024 End: 06-04-2025 Microalbumin/Creatinine panel in random Urine Microalbumin / creatinine urine ratio Lab Routine Primary hypertension (CMS/HCC) Expected: 06/04/2024 (Approximate), Expires: 06/04/2025 [facility] Work Phone: Comment on above: Expected: 06/04/2024 (Approximate), Expires: 06/04/2025 Start: 06-04-2024 End: 06-04-2024 Patient encounter procedure [facility] Comment on above: Arrived Start: 05-17-2024 Medicare Annual Well ness (AWV) Medicare Annual Wellness (AWV) [facility] Start: 02-21-2024 End: 02-21-2024 Patient encounter procedure 02/21/2024 9:30 AM EDT Office Visit [facility] [address] [place] [id number] Sonu Connelly NP [address] [place] [address] Arrived [facility] Comment on above: Arrived Start: 01-29-2024 Influenza vaccination Influenza Vacc ine (#1) [facility] Start: 01-29-2024 Screening for malign ant neoplasm of breast Mammogram [facility] Start: 01-09-2024 End: 01-09-2024 Patient encounter procedure 01/09/2024 8:00 AM EDT Office Visit [facility] [address] [facility] [address] [place] [id number] Richardson Ricnon, PEGGER [employer]BBY LOOMS-DEVELOPMENT SCIENTIST [address] [facility] [address] [place] [address] [facility] Start: 09-27-2023 End: 09-27-2023 Patient encounter procedure 09/27/2023 9:15 AM EDT Office Visit [facility] [address] [place] [id number] Shaikh Ramirez MD [address] [place] [address] [facility] Start: 07-11-2023 End: 07-11-2024 CBC panel - Blood by Automated count CBC Lab Routine Atrial 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, unspecified type (CMS/HCC) Primary hypertension Expected: 07/11/2023 (Approximate), Expires: 07/11/2024 [facility] Service Area Work Phone: Comment on above: Expected: 07/11/2023 (Approximate), Expires: 07/11/2024 Start: 07-11-2023 End: 07-11-2024 Comprehensive metabolic 2000 panel - Serum or Plasma Comprehensive Metabolic Panel Lab Routine Atrial 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, unspecified type (CMS/HCC) Primary hypertension Expected: 07/11/2023 (Approximate), Expires: 07/11/2024 [facility] Work Phone: Comment on above: Expected: 07/11/2023 (Approximate), Expires: 07/11/2024 Start: 07-11-2023 End: 07-11-2024 Lipid 1996 panel - Serum or Plasma Lipid Panel Lab Routine Mixed hyperlipidemia Expected: 07/11/2023 (Approximate), Expires: 07/11/2024 [facility] Work Phone: Comment on above: Expected: 07/11/2023 (Approximate), Expires: 07/11/2024 Start: 07-11-2023 End: 07-11-2023 Patient encounter procedure 07/11/2023 12:30 PM EST Office Visit [address] [place] [phone] Jolly Smith MD [address] [place] [address] [address] [place] [address] [facility] Start: 07-07-2023 End: 07-07-2023 Patient encounter procedure 07/07/2023 2:15 PM EST Appointment [address] [place] [phone] [facility] Start: 07-07-2023 End: 07-07-2023 Patient encounter procedure Helen [facility] Start: 06-23-2023 End: 06-23-2024 CBC panel - Blood by Automated count CBC Lab Routine Hyperlipidemia, unspecified hyperlipidemia type Chest pain, unspecified type Primary hypertension Paroxysmal atrial 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 (CMS/HCC) Expected: 06/23/2023 (Approximate), Expires: 06/23/2024 [facility] Work Phone: Comment on above: Expected: 06/23/2023 (Approximate), Expires: 06/23/2024 Start: 06-23-2023 End: 06-23-2024 Comprehensive metabolic 2000 panel - Serum or Plasma Comprehensive Metabolic Panel Lab Routine Hyperlipidemia, unspecified hyperlipidemia type Chest pain, unspecified type Primary hypertension Paroxysmal atrial 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 (CMS/HCC) Expected: 06/23/2023 (Approximate), Expires: 06/23/2024 [facility] Work Phone: Comment on above: Expected: 06/23/2023 (Approximate), Expires: 06/23/2024 Start: 06-23-2023 End: 06-23-2024 Lipid 1996 panel - Serum or Plasma Lipid Panel Lab Routine Hyperlipidemia, unspecified hyperlipidemia type Chest pain, unspecified type Primary hypertension Paroxysmal atrial 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 (CMS/HCC) Expected: 06/23/2023 (Approximate), Expires: 06/23/2024 [facility] Work Phone: Comment on above: Expected: 06/23/2023 (Approximate), Expires: 06/23/2024 Start: 06-23-2023 End: 06-23-2025 NM Heart Perfusion W stress and W radionuclide IV Nuclear Stress Test Cardiac Nuclear Medicine Routine Hypercoagulable state due to 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 (CMS/HCC) care home current use of anticoagulant therapy Hyperlipidemia, unspecified [...] Expected: 06/23/2023 (Approximate), Expires: 06/23/2024 [facility] Work Phone: Comment on above: Expected: 06/23/2023 (Approximate), Expires: 06/23/2024 Start: 06-23-2023 End: 06-23-2024 Thyroxine (T4) free [Mass/volume] in Serum or Plasma Thyroxine, Free Lab Routine Hyperlipidemia, unspecified hyperlipidemia type Chest pain, unspecified type Primary hypertension Paroxysmal atrial 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 (CMS/HCC) Expected: 06/23/2023 (Approximate), Expires: 06/23/2024 [facility] Work Phone: Comment on above: Expected: 06/23/2023 (Approximate), Expires: 06/23/2024 Start: 06-23-2023 End: 06-23-2024 Triiodothyronine (T3) [Mass/volume] in Serum or Plasma Triiodothyronine, Total Lab Routine Hyperlipidemia, unspecified hyperlipidemia type Chest pain, unspecified type Primary hypertension Paroxysmal atrial 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 (CMS/HCC) Expected: 06/23/2023 (Approximate), Expires: 06/23/2024 [facility] Work Phone: Comment on above: Expected: 06/23/2023 (Approximate), Expires: 06/23/2024 Start: 01-28-2023 COVID-19 Vaccine ( season) COVID-19 Vaccine ( season) [facility] Start: 12-23-2021 [facility] Work Phone: Start: 12-23-2021 [facility] Work Phone: Start: 11-05-2021 [facility] Work Phone: Start: 01-06-2020 Pneumococcal Vaccine : 65+ Years (2 - PPSV23 or PCV20) Pneumococcal Vaccine: 65+ Years (2 - PPSV23 or PCV20) [facility] Start: 01-06-2020 Pneumococcal Vaccine : 65+ Years (2 of 2 - PPSV23 or PCV20) Pneumococcal Vaccine: 65+ Years (2 of 2 - PPSV23 or PCV20) [facility] Start: 2011 RSV patient s and/or patients aged 60+ years (1 - 1-dose 60+ series) RSV patients and/or patients aged 60+ years (1 - 1-dose 60+ series) [facility] Start: 1991 Screening for malign ant neoplasm of breast Mammogram [facility] Start: 09-10-1969 Diabetes mellitus screening Diabetes Screening [facility] Start: 09-10-1969 Hepatitis C screening Hepatitis C Sc reening [facility] Start: 1951 Lipid panel Lipid Panel [facility] Start: 1951 Medicare Annual Well ness Visit Medicare Annual Wellness Visit (AWV) [facility] Start: 1951 Screening for malign ant neoplasm of colon [facility] Start: 1950 Screening for osteoporosis Bone Density Scan [facility] Patient Education Hemorrhoids Diverticulosis Dicyclomine [facility] Work Phone: Immunizations Immunization Date Immunization Notes Care Provider Ángel smith 02-09-2023 Influenza, Seasonal, Quadrivalent, Adjuvanted Generic Provider [facility] 02-09-2023 influenza virus vaccine, unspecified formulation Richardson Rincon PEGGER DOBBY LOOMS-DEVELOPMENT SCIENTIST Work Phone: [facility] Work Phone: 02-08-2022 Influenza, High-dose Seasonal, Quadrivalent, Preservative Free Generic Provider [facility] 12-15-2021 zoster vaccine recombinant Generic Provider [facility] 10-15-2021 zoster vaccine recombinant Generic Provider [facility] 08-28-2021 COVID-19 mRNA-1273 (Moderna) DO Gume Ziegler Work Phone: [facility] 08-28-2021 tetanus toxoid, reduced diphtheria toxoid, and acellular pertussis vaccine, adsorbed Generic Provider [facility] 04-22-2021 COVID-19 mRNA-1273 (Moderna) DO Gume Ziegler Work Phone: [facility] 03-11-2021 Kenalog -40 mg Dede Calve y Other [facility] 02-10-2021 Influenza, High-dose Seasonal, Quadrivalent, Preservative Free Generic Provider [facility] 09-25-2020 COVID-19 mRNA-1273 (Moderna) DO Gume Ziegler Work Phone: [facility] 08-28-2020 COVID-19 mRNA-1273 (Moderna) DO Gume Ziegler Work Phone: [facility] 02-22-2020 influenza, high dose seasonal, preservative-free Generic Provider [facility] 12-31-2019 Kenalog -40 mg Dede Calve y Other [facility] Other 11-11-2019 pneumococcal conjugate vaccine, 13 valent Generic Provider [facility] 04-23-2019 Kenalog -40 mg Dede Calve y Other [facility] Other 02-24-2017 pneumococcal conjugate vaccine, 13 valent Generic Provider [facility] 03-09-2012 influenza virus vaccine, whole virus Sonu Connelly VIRTUALIZATION ARCHITECT Work Phone: [facility] 03-12-2011 influenza virus vaccine, whole virus Sonu Connelly VIRTUALIZATION ARCHITECT Work Phone: [facility] 03-19-2010 influenza virus vaccine, whole virus Sonu Connelly VIRTUALIZATION ARCHITECT Work Phone: [facility] 03-21-2009 influenza virus vaccine, whole virus Sonu Connelly VIRTUALIZATION ARCHITECT Work Phone: [facility] Payers Date Payer Category Payer Unknown [id number] 2021 Self-pay [id number] 2021 Medicaid [employer] MEDICARE A DVANTAGE [id number] 2016 Medicare [id number] 1959 Medicare [id number] [id number] 1950 Unknown [id number] 2.16.840.1.781210.3.579.2.593 1950 Unknown [id number] 2.16.840.1.775841.3.579.2.593 1950 Unknown [id number] 2.16.840.1.753567.3.579.2.593 1950 Unknown [id number] 2.16.840.1.175066.3.579.2.593 1951 Unknown [id number] 2.16.840.1.139249.3.579.2.593 1951 Unknown [id number] 2.16.840.1.094240.3.579.2.593 1951 Unknown [id number] 2.16.840.1.894384.3.579.2.1244 1951 Unknown [id number] 2.16.840.1.835365.3.579.2.1244 1951 Unknown [id number] 2.16.840.1.522415.3.579.2.1244 1951 Unknown [id number] 2.16.840.1.564955.3.579.2.1245 1951 Unknown [id number] 2.16.840.1.203621.3.579.2.1245 1951 Unknown [id number] 2.16.840.1.928370.3.579.2.1245 1951 Unknown [id number] 2.16.840.1.527482.3.579.2.1245 1951 Unknown [id number] 2.16.840.1.861753.3.579.2.1245 1951 Unknown [id number] 2.16.840.1.841363.3.579.2.1258 1950 Unknown [id number] 2.16.840.1.891651.3.579.2.1258 1950 Unknown [id number] 2.16.840.1.798486.3.579.2.1258 1950 Unknown [id number] 2.16.840.1.086223.3.579.2.1259 Medicare [id number] 2.16.840.1.545760.19 Unknown [id number] 2.16.840.1.602751.19 Unknown [id number] 2.16.840.1.646975.3.579.2.531 Unknown [id number] 2.16.840.1.247260.3.579.2.531 Unknown [id number] 2.16.840.1.799094.3.579.2.531 Unknown [id number] 2.16.840.1.900426.3.579.2.531 Unknown [id number] 2.16.840.1.037015.3.579.2.531 Social History Date Type Detail Facility Unknown if ever smoked [facility] Other Start: 06-23-2023 End: 02-21-[address] [facility] Other Start: 12-23-2021 Tobacco smoking stat us NHIS Smoker (finding) [facility] Start: 1950 Sex Assigned At Female F [facility] Start: 06-23-2023 [facility] History of tobacco use Cigarette Smoker U [facility] Work Phone: Start: 06-23-2023 End: 02-21-2024 Cigarettes smoked current (pack per day) - Reported 0.3 [facility] Work Phone: Start: 06-23-2023 End: 02-21-2024 Tobacco use and exposure Smokeless tobacco non-user [facility] Work Phone: Start: 06-23-2023 End: 06-04-2024 Alcohol intake Lifetime non-drinker (finding) [facility] Work Phone: Start: 1950 Sex Assigned At Not on file U [facility] Work Phone: Start: 06-13-2023 End: 01-09-2024 Exposure to SARS-CoV-2 (event) Not sure [facility] Start: 06-01-2023 End: 02-21-2024 Tobacco smoking status NHIS Occasional tobacco smoker [facility] Start: 04-29-2023 Alcohol Comment caffeine: soda /pop , coffee [facility] History of tobacco use Passive smoker [facility] Goals Date Patient Goal Desired Activity /State Clinical Notes 03-11-2021 to 06-04-2024 Sonu Connelly, JOSH - 06/04/2024 9:43 AM Juan Connelly, JOSH - 06/04/2024 9:38 AM Juan Connelly, JOSH - 06/04/2024 9:37 AM Juan Connelly, JOSH - 06/04/2024 9:30 AM EST Note Date & Type Note Facility 06-04-2024 History of Present illness Narrative Associated Problem(s): Other emphysema (CMS/HCC) Currently taking Anoro and albuterol PRN. Is still current 1ppd smoker. Reports she recently had bronchitis and noticed increased shortness of breath. Denies fever, cough, chest pain, LE edema, PND, Orthopnea. Discussed with patient importance of quitting smoking, Associated Problem(s): Hyperlipidemia (CMS/HCC) Currently taking Atorvastatin 10mg Denies any myalgias. Most recent Lipid Panel- WNL Continue current regimen. Associated Problem(s): Primary hypertension (CMS/HCC) Currently taking Metoprolol 25mg Losartan 100mg Checks BP at home; Averages are less than 120/80. Denies orthostatic changes, dizziness, cough, shortness of breath, swelling in extremities. Continue current regimen. Given BP log, encouraged pt to record BP and bring log back with them to next visit. Images from the original note were not included. Subjective Patient ID: Cydney Villa is a 73 y.o. female who presents for Hypertension. HPI Specialists: Dr. Christine CLEMENTE HTN: Currently taking Metoprolol 25mg Losartan 100mg Checks BP at home; Averages are 114/80's Denies orthostatic changes, dizziness, cough, shortness of breath, swelling in extremities. Continue current regimen. Given BP log, advised pt to record BP and bring log back with them to next visit. HLD: Currently taking Atorvastatin 10mg Denies any myalgias. Most recent Lipid Panel- WNL Continue current regimen. Component Ref Range & Units 6 mo ago (11/09/23) 6 mo ago (11/09/23) 6 mo ago (11/09/23) 10 mo ago (07/14/23) 10 mo ago (07/14/23) 10 mo ago (07/14/23) 11 mo ago (06/24/23) 11 mo ago (06/24/23) 11 mo ago (06/24/23) 11 mo ago (06/24/23) TRIGLYCERIDES <=150 mg/dL 118 136 R 26.8 R 121 143 R 31.9 R 2.124 R 135 139 R 22.5 R CHOLESTEROL <=200 mg/dL 159 4.4 R 0.3 R 153 4.2 R 0.3 R 152 4.2 R 0.5 R HDL CHOLESTEROL 40 - 60 mg/dL 52 9.8 R 4.9 R 52 CM 11.0 R 4.4 R 49 CM 9.1 R 6.3 R Comment: > or =60 mg/dl - LOW CARDIOVASCULAR RISK <40 mg/dl - HIGH CARDIOVASCULAR RISK LDL CHOLESTEROL CALCULATED mg/dL 83.4 90 R 2.1 R 76.8 CM 91 R 2.4 R 76.0 CM 87 R 2.1 R Comment: <100 mg/dl OPTIMAL 100-129 mg/dl NEAR OR ABOVE OPTIMAL 130-159 mg/dl BORDERLINE HIGH 160-189 mg/dl HIGH >190 mg/dl VERY HIGH VLDL CHOLESTEROL mg/dL 23.6 0.6 R 0.6 R 24.2 0.4 R 0.5 R 27.0 0.5 R 0.6 R CHOL HDL RATIO 3.1 13 Low R 0.02 R 2.9 CM 10 Low R 0.02 R 3.1 CM 14 Low R 0.05 High R Comment: 3.3 - 4.4 LOW RISK 4.4 - 7.1 AVERAGE RISK 7.1 - 11.0 MODERATE RISK >11.0 HIGH RISK ALANINE AMINOTRANSFERASE 21 R 20 R 26 R ALKALINE PHOSPHATASE 87 R 83 R 80 R TOTAL PROTEIN 7.2 R 7.3 R 7.1 R ALBUMIN LEVEL 3.6 R 3.5 R 3.5 R ALBUMIN GLOBULIN RATIO 1.[address] [facility] Review of Systems Constitutional: Negative for activity change, appetite change, chills, diaphoresis, fatigue, fever and unexpected weight change. HENT: Positive for postnasal drip and rhinorrhea. Negative for congestion, ear pain, sinus pressure, sinus pain, sneezing, sore throat, trouble swallowing and voice change. Eyes: Negative for visual disturbance. Respiratory: Negative for cough, chest tightness, shortness of breath and wheezing. Cardiovascular: Negative for chest pain, palpitations and leg swelling. Gastrointestinal: Negative for abdominal distention, abdominal pain, blood in stool, constipation, diarrhea and vomiting. Genitourinary: Negative for decreased urine volume, dysuria, flank pain, frequency, hematuria and urgency. Musculoskeletal: Negative for arthralgias, gait problem, joint swelling and myalgias. Skin: Negative for rash. Neurological: Negative for dizziness, tremors, syncope, weakness, light-headedness and headaches. Psychiatric/Behavioral: Negative for decreased concentration and suicidal ideas. The patient is not nervous/anxious. Hematological: Does not bruise/bleed easily. Endocrine: Negative for cold intolerance, heat intolerance, polydipsia, polyphagia and polyuria. Objective Physical Exam Vitals reviewed. Constitutional: Appearance: Normal appearance. HENT: Right Ear: Tympanic membrane normal. Left Ear: Tympanic membrane normal. Nose: Rhinorrhea present. Mouth/Throat: Mouth: Mucous membranes are moist. Pharynx: Oropharynx is clear. Eyes: Pupils: Pupils are equal, round, and reactive to light. Cardiovascular: Rate and Rhythm: Normal rate and regular rhythm. Pulses: Normal pulses. Heart sounds: Normal heart sounds. Pulmonary: Effort: Pulmonary effort is normal. Breath sounds: Normal breath sounds. Abdominal: General: Abdomen is flat. Bowel sounds are normal. Palpations: Abdomen is soft. Skin: Capillary Refill: Capillary refill takes less than 2 seconds. Neurological: Mental Status: She is alert and oriented to person, place, and time. Assessment/Plan Problem List Items Addressed This Visit Primary hypertension (CMS/HCC) - Primary Currently taking Metoprolol 25mg Losartan 100mg Checks BP at home; Averages are less than 120/80. Denies orthostatic changes, dizziness, cough, shortness of breath, swelling in extremities. Continue current regimen. Given BP log, encouraged pt to record BP and bring log back with them to next visit. Relevant Orders Microalbumin / creatinine urine ratio Comprehensive metabolic panel CBC and differential Other emphysema (CMS/HCC) Currently taking Anoro and albuterol PRN. Is still current 1ppd smoker. Reports she recently had bronchitis and noticed increased shortness of breath. Denies fever, cough, chest pain, LE edema, PND, Orthopnea. Discussed with patient importance of quitting smoking, Relevant Medications Umeclidinium-Vilanterol (Anoro Ellipta) 62.5-25 MCG/ACT aerosol powder GERD (gastroesophageal reflux disease) Relevant Medications pantoprazole (ProtoNix) 40 MG EC tablet Hyperlipidemia (CMS/HCC) Currently taking Atorvastatin 10mg Denies any myalgias. Most recent Lipid Panel- WNL Continue current regimen. Relevant Medications atorvastatin (Lipitor) 10 MG tablet Other Relevant Orders Lipid panel Age-related osteoporosis without current pathological fracture (CMS/HCC) Relevant Medications alendronate (Fosamax) 70 MG tablet Calcium Carb-Cholecalciferol (Oyster Shell Calcium w/D) 500-5 MG-MCG tablet Other Visit Diagnoses New onset a-fib (CMS/HCC) Relevant Medications apixaban (Eliquis) 5 MG tablet metoprolol tartrate (Lopressor) 25 MG tablet Seasonal allergic rhinitis due to other allergic trigger Relevant Medications fluticasone (Flonase) 50 MCG/ACT nasal spray cetirizine (ZyrTEC) 10 MG tablet Primary pulmonary hypertension (CMS/HCC) Relevant Medications losartan (Cozaar) 100 MG tablet Restless legs syndrome Relevant Medications pramipexole (Mirapex) 0.5 MG tablet Encounter for screening mammogram for malignant neoplasm of breast Relevant Orders Bilateral screening mammogram documented in this encounter [facility] 06-04-2024 Instructions Sonu Connelly NP - 06/04/2024 9:30 AM EST Have labs completed before next OV. Take all medications as prescribed. documented in this encounter [facility] 02-21-2024 History of Present illness Narrative Associated Problem(s): Primary hypertension (CMS/HCC) Currently taking Metoprolol 25mg Losartan 100mg Checks BP at home; Averages are 114/80's Denies orthostatic changes, dizziness, cough, shortness of breath, swelling in extremities. Continue current regimen. Given BP log, encouraged pt to record BP and bring log back with them to next visit. Associated Problem(s): Hyperlipidemia (CMS/HCC) Currently taking Atorvastatin 10mg Denies any myalgias. Most recent Lipid Panel- WNL Continue current regimen. Associated Problem(s): Cigarette nicotine dependence without complication Current 1-2 cigarettes per day smoker. Patient counseled on smoking/tobacco cessation. Patient educated on harmful effects of smoking cigarettes/tobacco including increased risk of cardiovascular diseases, chronic lung disease and multiple cancers Associated Problem(s): GERD (gastroesophageal reflux disease) Currently taking Protonix 40 q12. Poorlyoorly controlled reflux, daily symptoms, acid taste in mouth. Complaining of epigastric pain after eating; Nausea/dry heaving; States pain has been ongoing for several years since cholystectomy; EGD within last 2 years -- no sig abnormality noted. Patient asked to stop using naproxen, work on smoking cessation. Referral sent to GI Images from the original note were not included. Subjective Patient ID: Cydney Villa is a 73 y.o. female who presents for Follow-up. HPI Complaining of epigastric pain after eating; Nausea/dry heaving; States pain has been ongoing for several years since cholystectomy; Had EGD within last 2 years; Unremarkable. HTN: Currently taking Metoprolol 25mg Losartan 100mg Checks BP at home; Averages are 114/80's Denies orthostatic changes, dizziness, cough, shortness of breath, swelling in extremities. Continue current regimen. Given BP log, advised pt to record BP and bring log back with them to next visit. HLD: Currently taking Atorvastatin 10mg Denies any myalgias. Most recent Lipid Panel- WNL Continue current regimen. Review of Systems Constitutional: Negative for activity change, appetite change, chills, diaphoresis, fatigue, fever and unexpected weight change. HENT: Negative for congestion, ear pain, rhinorrhea, sinus pressure, sinus pain, sneezing, sore throat, trouble swallowing and voice change. Eyes: Negative for visual disturbance. Respiratory: Negative for cough, chest tightness, shortness of breath and wheezing. Cardiovascular: Negative for chest pain, palpitations and leg swelling. Gastrointestinal: Positive for abdominal pain. Negative for abdominal distention, blood in stool, constipation, diarrhea and vomiting. Epigastric pain Genitourinary: Negative for decreased urine volume, dysuria, flank pain, frequency, hematuria and urgency. Musculoskeletal: Negative for arthralgias, gait problem, joint swelling and myalgias. Skin: Negative for rash. Neurological: Negative for dizziness, tremors, syncope, weakness, light-headedness and headaches. Psychiatric/Behavioral: Negative for decreased concentration and suicidal ideas. The patient is not nervous/anxious. Hematological: Does not bruise/bleed easily. Endocrine: Negative for cold intolerance, heat intolerance, polydipsia, polyphagia and polyuria. Objective Physical Exam Vitals reviewed. Constitutional: Appearance: Normal appearance. HENT: Head: Normocephalic and atraumatic. Right Ear: Tympanic membrane normal. Left Ear: Tympanic membrane normal. Nose: Nose normal. Mouth/Throat: Mouth: Mucous membranes are moist. Pharynx: Oropharynx is clear. Eyes: Pupils: Pupils are equal, round, and reactive to light. Cardiovascular: Rate and Rhythm: Normal rate and regular rhythm. Pulses: Normal pulses. Heart sounds: Normal heart sounds. Pulmonary: Effort: Pulmonary effort is normal. Breath sounds: Normal breath sounds. Abdominal: General: Abdomen is flat. Bowel sounds are normal. Palpations: Abdomen is soft. Musculoskeletal: General: Normal range of motion. Cervical back: Normal range of motion. Skin: General: Skin is warm and dry. Capillary Refill: Capillary refill takes less than 2 seconds. Neurological: General: No focal deficit present. Mental Status: She is alert and oriented to person, place, and time. Psychiatric: Mood and Affect: Mood normal. Behavior: Behavior normal. Assessment/Plan Problem List Items Addressed This Visit Primary hypertension (CMS/HCC) - Primary Currently taking Metoprolol 25mg Losartan 100mg Checks BP at home; Averages are 114/80's Denies orthostatic changes, dizziness, cough, shortness of breath, swelling in extremities. Continue current regimen. Given BP log, encouraged pt to record BP and bring log back with them to next visit. Other emphysema (CMS/HCC) Relevant Medications albuterol HFA 90 mcg/act inhaler fluticasone (Flonase Allergy Relief) 50 MCG/ACT nasal spray Cigarette nicotine dependence without complication Current 1-2 cigarettes per day smoker. Patient counseled on smoking/tobacco cessation. Patient educated on harmful effects of smoking cigarettes/tobacco including increased risk of cardiovascular diseases, chronic lung disease and multiple cancers GERD (gastroesophageal reflux disease) Currently taking Protonix 40 q12. Poorlyoorly controlled reflux, daily symptoms, acid taste in mouth. Complaining of epigastric pain after eating; Nausea/dry heaving; States pain has been ongoing for several years since cholystectomy; EGD within last 2 years -- no sig abnormality noted. Patient asked to stop using naproxen, work on smoking cessation. Referral sent to GI Relevant Medications pantoprazole (ProtoNix) 40 MG EC tablet Hyperlipidemia ([facility]) Currently taking Atorvastatin 10mg Denies any myalgias. Most recent Lipid Panel- WNL Continue current regimen. Chronic epigastric pain Relevant Orders Ambulatory referral to Gastroenterology Age-related osteoporosis without current pathological fracture ([facility]) Relevant Medications alendronate (Fosamax) 70 MG tablet Calcium Carb-Cholecalciferol (Oyster Shell Calcium w/D) 500-5 MG-MCG tablet documented in this encounter [facility] 02-21-2024 Instructions Sonu Connelly NP - 02/21/2024 9:30 AM EDT Referral sent to GI- they will call you! documented in this encounter [facility] 01-09-2024 Evaluation + Plan note Associated Problem(s): care home current use of anticoagulant therapy CHADS VASc 3 chronically 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 full dose Eliquis age 73, weight 64 kg Denies bleeding diatheses [facility] Work Phone: 01-09-2024 Evaluation + Plan note Associated Problem(s): Paroxysmal atrial 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 (Multi) Regular ausculatory rate and rhythm in office today on Lopressor Initially identified May 2023 [facility] Work Phone: 01-09-2024 Evaluation + Plan note Associated Problem(s): Hyperlipidemia Low intensity statin Most recent LDL 76, HDL 52 [facility] Work Phone: 01-09-2024 Miscellaneous Notes Associated Problem(s): care home current use of anticoagulant therapy CHADS VASc 3 chronically 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 full dose Eliquis age 73, weight 64 kg Denies bleeding diatheses Associated Problem(s): Paroxysmal atrial 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 (Multi) Regular ausculatory rate and rhythm in office today on Lopressor Initially identified May 2023 Associated Problem(s): Hyperlipidemia Low intensity statin Most recent LDL 76, HDL 52 Associated Problem(s): Primary hypertension Optimal in office Associated Problem(s): Cardiac and Vasculature May 2023 MPI no ischemia, no infarct. May 2023 TTE LVEF 54% Left atrium normal MR none Associated Problem(s): Current every day smoker Varies depending on activity Continued every day tobacco use. Have reviewed the negative cardiovascular impact of nicotine. Continues to decline pharmacological assistance. documented in this encounter [facility] Work Phone: 01-09-2024 Evaluation + Plan note Associated Problem(s): Primary hypertension Optimal in office [facility] Work Phone: 01-09-2024 Evaluation + Plan note Associated Problem(s): Cardiac and Vasculature May 2023 MPI no ischemia, no infarct. May 2023 TTE LVEF 54% Left atrium normal MR none [facility] Work Phone: 01-09-2024 Evaluation + Plan note Associated Problem(s): Current every day smoker Varies depending on activity Continued every day tobacco use. Have reviewed the negative cardiovascular impact of nicotine. Continues to decline pharmacological assistance. [facility] Work Phone: 01-09-2024 History of Present illness Narrative Chief Complaint Doing pretty good Reason for Visit Routine 6-month follow-up Patient presents to the office today for outpatient follow-up for atrial 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, anticoagulation. Last evaluated in clinic by Dr. Smith June 2023. Presents today ambulatory with steady gait. Accompanied by patient Patient denies any hospitalizations or significant changes to interval medical history since last office follow-up. She follows routinely with PCP. History of Present Illness Patient is an extremely pleasant 73-year-old female who presents to the office today with no voiced cardiovascular complaints. She remains aerobically active where she does yard work, goes grocery shopping, housework including sweeping and mopping the floors. She had previously complained of some atypical chest pain, denies at this time. She reports that her A-fib symptom was a hurting in my chest and she denies any type of recurrence. Patient reports that overall has no complaint(s) of chest pain, chest pressure/discomfort, claudication, dyspnea, and exertional chest pressure/discomfort Daily activity: Greater than 4 METS Denies any change in exercise capacity or functional tolerance since last office visit. Lifestyle modifications for PAF reviewed includin. Limit alcohol intake: Denies 2. Limit caffeine intake: Daily coffee 3. Discussed importance of optimal weight control and impact on PAF. Encourage to obtain optimal BMI. 4. Obstructive Sleep Apnea: Denies prior testing The importance of primary prevention reviewed: HTN: Optimally treated HLD: Optimally treated DM: Denies Smoker: Continue current everyday smoker, remains reluctant to quit. BMI: Reviewed the merits of healthy lifestyle choices on overall cardiovascular health. Overall patient is pleased with current state of cardiovascular health. At this time there are no indications for additional cardiovascular testing or need for medication changes. Review of Systems Cardiovascular: Negative for chest pain, dyspnea on exertion, irregular heartbeat, leg swelling, near-syncope, orthopnea, palpitations, paroxysmal nocturnal dyspnea and syncope. Visit Vitals BP 124/66 (BP Location: Left arm, Patient Position: Sitting) Pulse 72 Ht 1.575 m (5' 2 ) Wt 64.9 kg (143 lb) BMI 26.16 kg/m Smoking Status Every Day BSA 1.69 m Physical Exam Vitals and nursing note reviewed. HENT: Head: Normocephalic. Cardiovascular: Rate and Rhythm: Normal rate and regular rhythm. Heart sounds: Normal heart sounds. Pulmonary: Effort: Pulmonary effort is normal. Breath sounds: Normal breath sounds. Abdominal: Palpations: Abdomen is soft. Musculoskeletal: Right lower leg: No edema. Left lower leg: No edema. Skin: General: Skin is warm and dry. Neurological: General: No focal deficit present. Mental Status: She is alert. Psychiatric: Mood and Affect: Mood normal. Behavior: Behavior normal. Allergies Allergen Reactions Ciprofloxacin Unknown Codeine Unknown Metronidazole Unknown Penicillin G Unknown Current Outpatient Medications Medication Instructions albuterol 90 mcg/actuation inhaler 2 puffs, inhalation, Every 4 hours PRN alendronate (FOSAMAX) 70 mg, oral, Once Weekly Anoro Ellipta 62.5-25 mcg/actuation blister with [...] daily pramipexole (MIRAPEX) 0.5 mg, oral, Nightly Assessment: Current every day smoker Varies depending on activity Continued every day tobacco use. Have reviewed the negative cardiovascular impact of nicotine. Continues to decline pharmacological assistance. Cardiac and Vasculature May 2023 MPI no ischemia, no infarct. 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 Prescription drug management of cardiovascular medication for efficacy, adherence to treatment, side effect assessment and polypharmacy. Current treatment clinically warranted and to continue without modifications. 2. Return for follow-up; in the interim, contact the office if new symptoms arise. Dr. Smith 6 months with labs prior Discussed the dynamic nature of coronary artery disease and the importance of seeking medical attention if new symptoms arise. You need to stop smoking. Though it is not easy, more than half of all adults smokers have quit. We encourage you to write down all the reasons you should quit smoking and set a quit date for yourself. Ask us how we can help. You may also call 3-533-HLTK-NOW for free resources and assistance. Richardson Rincon MSN, [employer]-DEVELOPMENT SCIENTIST, PMHNP-[facility] Please excuse any errors in grammar or translation related to this dictation. Voice recognition software was utilized to prepare this document. documented in this encounter [facility] Work Phone: 01-09-2024 Instructions BRYSON Lagos - 01/09/2024 8:00 AM EDT Please bring all medicines, vitamins, and herbal supplements with you when you come to the office. Prescriptions will not be filled unless you are compliant with your follow up appointments or have a follow up appointment scheduled as per instruction of your physician. Refills should be requested at the time of your visit. PLAN: Through informed decision making process incorporating patients unique circumstances, the following treatment plan will be initiated: 1. Prescription drug management of cardiovascular medication for efficacy, adherence to treatment, side effect assessment and polypharmacy. Current treatment clinically warranted and to continue without modifications. 2. Return for follow-up; in the interim, contact the office if new symptoms arise. Dr. Smith 6 months with labs prior You need to stop smoking. Though it is not easy, more than half of all adults smokers have quit. We encourage you to write down all the reasons you should quit smoking and set a quit date for yourself. Ask us how we can help. You may also call 5-193-BYGK-NOW for free resources and assistance. documented in this encounter [facility] Work Phone: 07-11-2023 History of Present illness Narrative Patient [...] redirect to the Timeline version of the The [email or web address]. Wt Readings from Last 3 Encounters: [...] results 07/11/2023 Current every day smoker 06/23/2023 care home current use of anticoagulant therapy 06/23/2023 Primary hypertension 06/23/2023 GERD (gastroesophageal reflux disease) 06/23/2023 Chest pain 06/23/2023 Hyperlipidemia 06/23/2023 Hypercoagulability due to atrial fibrillation (CMS/HCC) 06/23/2023 Paroxysmal atrial 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 (CMS/HCC) 06/23/2023 Assessment: 1. 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 Atrial [...] plan. documented in this encounter [facility] Work Phone: 07-11-2023 Instructions Merry Wilkerson [...] visit. documented in this encounter [facility] Work Phone: 06-23-2023 History of Present illness Narrative Referred by for Establish Care and Atrial Fibrillation (Onset new afib) History Of Present Illness: Cydney Villa is a 72 y.o. female presenting with history of atrial fibrillation. Prior records reviewed, patient presented to Dr. Correa with palpitations. A Holter showed 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. [id number] score 3 placed on metoprolol and Eliquis [...] fibrillation (CMS/HCC) - Nuclear Stress Test; Future care home current use of anticoagulant therapy - Nuclear [...] probably not pathologic, followed by primary care [id number] score 3 Postmenopausal female with several risk [...] history, physical exam, discussion and plan. ANNA SALAS LPN Scribe Attestation By signing my name below, I, Anna Santacruz LPN Scribe attest that this documentation has been prepared under the direction and in the presence of Jolly Smith MD. documented in this encounter [facility] Work Phone: 06-23-2023 Instructions Alex Hawley [...] today documented in this encounter [facility] Work Phone: 11-22-2022 Evaluation note Encounter [...] sooner if significantly worsening or changing appearance. 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 [employer] Other [facility] [employer] Other Evaluation note* Diagnosis Onset Date Resolution Status Abdominal pain acute Blood in stool [facility] Work Phone: Evaluation note* Diagnosis Atrial fibrillation, unspecified type (CMS/HCC) Current every day smoker Gastroesophageal reflux disease, unspecified whether esophagitis present Hypercoagulable state due to 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 (CMS/HCC) care home current use of anticoagulant therapy Hyperlipidemia, unspecified hyperlipidemia type Chest pain, unspecified type Primary hypertension Unspecified essential hypertension Paroxysmal atrial 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 (CMS/HCC) Atrial fibrillation documented in this encounter [facility] Work Phone: Evaluation note* Diagnosis 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- Primary Atrial fibrillation, unspecified type (CMS/HCC) Gastroesophageal reflux disease, unspecified whether esophagitis present Paroxysmal atrial 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 (CMS/HCC) Atrial fibrillation Primary hypertension Unspecified essential hypertension Mixed hyperlipidemia Hypercoagulable state due to 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 (CMS/HCC) Current every day smoker Encounter to discuss test results Other specified counseling documented in this encounter [facility] Work Phone: Evaluation note* Diagnosis RLS (restless legs syndrome)- Primary Restless legs syndrome (RLS) Other emphysema (CMS/HCC) Other emphysema Irregularly irregular pulse rhythm Primary hypertension (CMS/HCC) Unspecified essential hypertension Osteopenia of multiple sites Hyperlipidemia, unspecified hyperlipidemia type (CMS/HCC) Intermittent palpitations Encounter for screening for lung cancer Cigarette nicotine dependence without complication New onset a-fib (CMS/HCC)- Primary Atrial fibrillation New onset a-fib (CMS/HCC)- Primary Atrial fibrillation Primary hypertension (CMS/HCC)- Primary Unspecified essential hypertension New onset a-fib (CMS/HCC) Atrial fibrillation Hyperlipidemia, unspecified hyperlipidemia type (CMS/HCC) RLS (restless legs syndrome) Restless legs syndrome (RLS) Paroxysmal atrial 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 (CMS/HCC) Atrial fibrillation Other emphysema (J43.8) Other emphysema Primary pulmonary hypertension (I27.0) Primary pulmonary hypertension Gastroesophageal reflux disease without esophagitis Esophageal reflux Age-related osteoporosis without current pathological fracture (CMS/HCC) Primary hypertension (CMS/HCC)- Primary Unspecified essential hypertension Paroxysmal atrial 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 (CMS/HCC) Atrial fibrillation Gastroesophageal reflux disease without esophagitis Esophageal reflux New onset a-fib (CMS/HCC) Atrial fibrillation Hyperlipidemia, unspecified hyperlipidemia type (CMS/HCC) Primary hypertension (CMS/HCC)- Primary Unspecified essential hypertension Age-related osteoporosis without current pathological fracture (CMS/HCC) Gastroesophageal reflux disease without esophagitis Esophageal reflux Chronic epigastric pain Cigarette nicotine dependence without complication Other emphysema (CMS/HCC) Other emphysema Mixed hyperlipidemia (CMS/HCC) Mixed hyperlipidemia Seasonal allergic rhinitis due to other allergic trigger- Primary Other emphysema ([facility]/HCC) Other emphysema documented in this encounter [facility] HealthcareEvaluation note* Diagnosis care home current use of anticoagulant therapy- Primary Atrial fibrillation, unspecified type (Multi) Paroxysmal atrial 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 (Multi) Atrial fibrillation Primary hypertension Unspecified essential hypertension Mixed hyperlipidemia Current every day smoker documented in this encounter [facility] Work Phone: Evaluation note* Diagnosis Primary hypertension ([facility]/HCC)- Primary Unspecified essential hypertension Age-related osteoporosis without current pathological fracture ([facility]/HCC) Gastroesophageal reflux disease without esophagitis Esophageal reflux Chronic epigastric pain Cigarette nicotine dependence without complication Other emphysema (CMS/HCC) Other emphysema Mixed hyperlipidemia ([facility]/HCC) Mixed hyperlipidemia documented in this encounter [facility] HealthcareEvaluation note* Diagnosis RLS (restless legs syndrome)- Primary Restless legs syndrome (RLS) Other emphysema (CMS/HCC) Other emphysema Irregularly irregular pulse rhythm Primary hypertension ([facility]/HCC) Unspecified essential hypertension Osteopenia of multiple sites Hyperlipidemia, unspecified hyperlipidemia type ([facility]/HCC) Intermittent palpitations Encounter for screening for lung cancer Cigarette nicotine dependence without complication New onset a-fib ([facility]/HCC)- Primary Atrial fibrillation New onset a-fib ([facility]/HCC)- Primary Atrial fibrillation Primary hypertension ([facility]/HCC)- Primary Unspecified essential hypertension New onset a-fib ([facility]/HCC) Atrial fibrillation Hyperlipidemia, unspecified hyperlipidemia type (CMS/HCC) RLS (restless legs syndrome) Restless legs syndrome (RLS) Paroxysmal atrial 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 (CMS/HCC) Atrial fibrillation Other emphysema (J43.8) Other emphysema Primary pulmonary hypertension (I27.0) Primary pulmonary hypertension Gastroesophageal reflux disease without esophagitis Esophageal reflux Age-related osteoporosis without current pathological fracture (CMS/HCC) Primary hypertension (CMS/HCC)- Primary Unspecified essential hypertension Paroxysmal atrial 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 (CMS/HCC) Atrial fibrillation Gastroesophageal reflux disease without esophagitis Esophageal reflux New onset a-fib (CMS/HCC) Atrial fibrillation Hyperlipidemia, unspecified hyperlipidemia type (CMS/HCC) Primary hypertension (CMS/HCC)- Primary Unspecified essential hypertension Age-related osteoporosis without current pathological fracture (CMS/HCC) Gastroesophageal reflux disease without esophagitis Esophageal reflux Chronic epigastric pain Cigarette nicotine dependence without complication Other emphysema (CMS/HCC) Other emphysema Mixed hyperlipidemia (CMS/HCC) Mixed hyperlipidemia Primary hypertension (CMS/HCC)- Primary Unspecified essential hypertension Mixed hyperlipidemia (CMS/HCC) Mixed hyperlipidemia Age-related osteoporosis without current pathological fracture (CMS/HCC) Other emphysema (CMS/HCC) Other emphysema New onset a-fib (CMS/HCC) Atrial fibrillation Seasonal allergic rhinitis due to other allergic trigger Primary pulmonary hypertension (CMS/HCC) Primary pulmonary hypertension Gastroesophageal reflux disease without esophagitis Esophageal reflux Restless legs syndrome Restless legs syndrome (RLS) Encounter for screening mammogram for malignant neoplasm of breast documented in this encounter [facility] HealthcareHistory general Narrative - Reported* Type Description Date Medical History GERD Medical History PUD Medical History hyperlipidemia Medical History diverticulosis Medical History colon polyps Surgical History HYSTERECTOMY Surgical History APPENDECTOMY Surgical History HEMRRHOIDECTOMY 01/16/21 Hospitalization History SEE [facility] [employer] Other Reason for referral (narrative)* Consultation (Routine) - Authorized Specialty Diagnoses / Procedures Referred By Contac t Referred To Contact Cardiology Diagnoses Atrial fibrillation, unspecified type (CMS/HCC) Paroxysmal atrial 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 (CMS/HCC) Primary hypertension Mixed hyperlipidemia Procedures Follow Up In Cardiology Jolly Smith MD [address] [facility] [address] [place] [address] Richardson Rincon, [employer]OMS-DEVELOPMENT SCIENTIST [address] [facility] [address] [place] [address] Referral ID Status Reason Start Date Expiration Date V isits Requested Visits Authorized [id number] Authorized 07/11/2023 07/10/2024 1 1 * Consultation (Routine) - Authorized Specialty Diagnoses / Procedures Referred By Contac t Referred To Contact Cardiology Diagnoses Atrial fibrillation, unspecified type (CMS/HCC) Gastroesophageal reflux disease, unspecified whether esophagitis present Paroxysmal atrial 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 (CMS/HCC) Primary hypertension Mixed hyperlipidemia Procedures Follow Up In Cardiology Jolly Smith MD [address] [facility] [address] [place] [address] Jolly Smith MD [address] [facility] [address] [place] [address] Referral ID Status Reason Start Date Expiration Date V isits Requested Visits Authorized [id number] Authorized 07/11/2023 07/10/2024 1 1 [facility] Work Phone: Reason for referral (narrative)* Consultation (Routine) - Authorized Specialty Diagnoses / Procedures Referred By Contac t Referred To Contact Cardiology Diagnoses Atrial fibrillation, unspecified type (Multi) Procedures Follow Up In Cardiology Richardson Rincon APRN-DEVELOPMENT SCIENTIST [address] [facility] [address], [facility] [address] [place] [address] Jolly Smith MD [address] [facility] [address] [place] [address] Referral ID Status Reason Start Date Expiration Date V isits Requested Visits Authorized [id number] Authorized 01/09/2024 01/08/2025 1 1 [facility] Work Phone: Reason for referral (narrative)* Consultation (Routine) - Authorized Specialty Diagnoses / Procedures Referred By Contac t Referred To Contact Gastroenterology Diagnoses Chronic epigastric pain Procedures CT OFFICE/OUTPATIENT NEW HIGH MDM 60 MINUTES Sonu Connelly NP [address] [place] [address] Soledad Jeffries DO [address] [facility] [place] [address] Referral ID Status Reason Start Date Expiration Date Visits Requested Visits Authorized [id number] Authorized Specialty Services Required 02/21/2024 08/19/2024 1 1 [facility] Chief Complaint and Reason for Visit Chief [...] state due to 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 (CMS/HCC) care home current use of anticoagulant therapy Hyperlipidemia, unspecified hyperlipidemia type Chest pain, unspecified type Primary hypertension Paroxysmal atrial 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 (CMS/HCC) Procedures Nuclear Stress Test CT CV STRS TST XERS&/OR RX CONT ECG W/SI&R CT CV STRS TST XERS&/OR RX CONT ECG W/O I&R CT CV STRS TST XERS&/OR RX CONT ECG TRCG ONLY CT CV STRS TST XERS&/OR RX CONT ECG I&R ONLY CHG MYOCARDIAL SPECT MULTIPLE STUDIES Jolly Smith MD [address] [facility] [address] [place] [address] Referral ID Status Reason Start Date Expiration Date Visits Requested Visits Authorized [id number] Pending Review Perform Procedure 06/23/2023 06/22/2024 5 5 Specialty Diagnoses / Procedures Referred By Contac t Referred To Contact Diagnoses Atrial fibrillation, unspecified type (CMS/HCC) Procedures ECG 12 Lead Jolly Smith MD [address] [facility] [address] [place] [address] Referral ID Status Reason Start Date Expiration Date V isits Requested Visits Authorized [id number] Authorized 06/23/2023 06/22/2024 1 1 Specialty Diagnoses / Procedures Referred By Contac t Referred To Contact Cardiology Diagnoses Atrial fibrillation, unspecified type (CMS/HCC) Gastroesophageal reflux disease, unspecified whether esophagitis present Procedures Follow Up In Cardiology Jolly Smith MD [address] [facility] [address] [place] [address] Jolly Smith MD [address] [facility] [address] [place] [address] Referral ID Status Reason Start Date Expiration Date V isits Requested Visits Authorized [id number] Authorized 06/23/2023 06/22/2024 1 1 Additional Source Comments REASON FOR VISIT (unrecogniz ed section and content) Reason Comments Establish Care Atrial Fibrillation Onset new afib Specialty Diagnoses / Procedures Referred By Contac t Referred To Contact Diagnoses Atrial fibrillation, unspecified type (CMS/HCC) Procedures ECG 12 Lead Jolly Smiht MD [address] [facility] [address] [place] [address] Referral ID Status Reason Start Date Expiration Date V isits Requested Visits Authorized [id number] Authorized 06/23/2023 06/22/2024 1 1 Specialty Diagnoses / Procedures Referred By Contac t Referred To Contact Cardiology Diagnoses Hypercoagulable state due to 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 (CMS/HCC) 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 Hyperlipidemia, unspecified hyperlipidemia type Chest pain, unspecified type Primary hypertension Paroxysmal atrial 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 (CMS/HCC) Procedures Nuclear Stress Test CT CV STRS TST XERS&/OR RX CONT ECG W/SI&R CT CV STRS TST XERS&/OR RX CONT ECG W/O I&R CT CV STRS TST XERS&/OR RX CONT ECG TRCG ONLY CT CV STRS TST XERS&/OR RX CONT ECG I&R ONLY CHG MYOCARDIAL SPECT MULTIPLE STUDIES Jolly Smith MD [address] [facility] [address] [place] [address] Referral ID Status Reason Start Date Expiration Date Visits Requested Visits Authorized [id number] Authorized Perform Procedure 06/23/2023 06/22/2024 5 5 Reason Comments Follow-up Stress results Specialty Diagnoses / Procedures Referred By Contac t Referred To Contact Cardiology Diagnoses Atrial fibrillation, unspecified type (CMS/HCC) Gastroesophageal reflux disease, unspecified whether esophagitis present Procedures Follow Up In Cardiology Jolly Smith MD [address] [facility] [address] [place] [address] Jolly Smith MD [address] [facility] [address] [place] [address] Referral ID Status Reason Start Date Expiration Date V isits Requested Visits Authorized [id number] Authorized 06/23/2023 06/22/2024 1 1 Reason Comments Med Change Request Reason Comments Follow-up 6 months Specialty Diagnoses / Procedures Referred By Contac t Referred To Contact Cardiology Diagnoses Atrial fibrillation, unspecified type (Multi) Gastroesophageal reflux disease, unspecified whether esophagitis present Paroxysmal atrial 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 (Multi) Primary hypertension Mixed hyperlipidemia Procedures Follow Up In Cardiology Jolly Smith MD [address] [place] [address] [address] [place] [address] Jolly Smith MD [address] [place] [address] [address] [place] [address] Referral ID Status Reason Start Date Expiration Date V isits Requested Visits Authorized [id number] Authorized 07/11/2023 07/10/2024 1 1 Reason Comments Follow-up Reason Comments Hypertension Care Teams (unrecognized sec tion and content) Team Status: Inactive Member Role Status Dates Shaikh Ashley MD Primary Care Provider Active Gabriel Qiu DO Attending Provider Active Team Status: Inactive Member Role Status Dates Gume Ziegler DO Attending Provider Active Shaikh Ashley MD Primary Care Provider Active Team Status: Active Member Role Status Dates Shaikh Ashley MD Primary Care Provider Active Tobacco Educator Relationship Specialty Start Date End Date Shaikh Ramirez MD [address] [place] [address] PCP - General Internal Medicine 06/03/23 Tobacco Educator Relationship Specialty Start Date End Date Shaikh Ramirez MD [address] [place] [address] PCP - General Internal Medicine 06/03/23 Tobacco Educator Relationship Specialty Start Date End Date Shaikh Ramirez MD [address] [place] [address] PCP - General Internal Medicine 06/03/23 Tobacco Educator Relationship Specialty Start Date End Date Shaikh Ramirez MD PCP - General Internal Medicine 06/03/23 Tobacco Educator Relationship Specialty Start Date End Date Shaikh Ramirez MD [address] [place] [phone] PCP - General Internal Medicine 06/29/23 Tobacco Educator Relationship Specialty Start Date End Date Rocky Gupta MD [address] [place] [address] PCP - General Family Medicine 02/07/24 Sonu Connelly NP [address] [place] [address] Nurse Practitioner Family Medicine 02/07/24 Tobacco Educator Relationship Specialty Start Date End Date Shaikh Ramirez MD PCP - General Internal Medicine 06/03/23 Tobacco Educator Relationship Specialty Start Date End Date Rocky Gupta MD [address] [place] [address] PCP - General Family Medicine 02/07/24 Sonu Connelly NP [address] [place] [phone] Nurse Practitioner Family Medicine 02/07/24 Tobacco Educator Relationship Specialty Start Date End Date Rocky Gupta MD [address] [place] [phone] PCP - General Family Medicine 02/07/24 Sonu Connelly NP [address] [place] [phone] Nurse Practitioner Family Medicine 02/07/24 Tobacco Educator Relationship Specialty Start Date End Date Rocky Gupta MD [address] [place] [phone] PCP - General Family Medicine 02/07/24 Sonu Connelly NP [address] [place] [phone] Nurse Practitioner Family Medicine 02/07/24 Tobacco Educator Relationship Specialty Start Date End Date Rocky Gupta MD [address] [place] [phone] PCP - General Family Medicine 02/07/24 Sonu Connelly NP [address] [facility] [phone] Nurse Practitioner Family Medicine 02/07/24 INFORMATION SOURCE (unrecogn ized section and content) DATE CREATED AUTHOR 04/12/2022 [facility] DATE CREATED AUTHOR AUTHOR'S ORGANIZ ATION 07/03/2022 [facility] DATE CREATED AUTHOR AUTHOR'S ORGANIZ ATION 03/25/2023 [facility] DATE CREATED AUTHOR AUTHOR'S ORGANIZ ATION 02/07/2024 [facility] DATE CREATED AUTHOR AUTHOR'S ORGANIZ ATION 03/28/2024 [facility] DATE CREATED AUTHOR AUTHOR'S ORGANIZ ATION 06/10/2024 [facility] dical Specialists [facility] FOR RECORDS PERTAINING TO PATIENTS WHO [...] BE BASED ON THE PRIMARY CLINICAL RECORDS. [facility] [employer] [facility]. provides no warranty or guarantee of the accuracy or completeness of information in this document.
[2024-06-12 09:27] LABS: Basophils Absolute Auto 0.1 10^3/uL (0.0-0.1); Basophils Percent Auto 0.6 % (0.2-2.0); Eosinophils Absolute Auto 0.2 10^3/uL (0.0-0.7); Eosinophils Percent Auto 1.7 % (0.9-7.0); Hematocrit 42.5 % (36.0-48.0); Hemoglobin 13.7 g/dL (12.0-16.0); Immature Granulocytes Abs Auto 0.03 10^3/uL (0.00-0.03); Immature Granulocytes Pct Auto 0.3 % (0.0-0.5); Lymphocytes Percent Auto 21.1 % (20.5-60.0); Mean Corpuscular HGB Conc 32.2 g/dL (29.9-35.2); Mean Platelet Volume 9.7 fL (9.5-13.5); Monocytes Absolute Auto 0.7 10^3/uL (0.3-0.8); Monocytes Percent Auto 7.6 % (1.7-12.0); Neutrophils Absolute Auto 6.7 10^3/uL (1.4-6.5); Neutrophils Percent Auto 68.7 % (43.0-75.0); Platelet Count 322 10^3/uL (150-450); Red Blood Count 4.57 10^6/uL (4.20-5.40); Red Cell Distribution Width 12.9 % (11.0-15.0); White Blood Count 9.7 10^3/uL (4.0-11.0)
[2024-06-12 10:04] LABS: Creatinine Urine Random 56.11 mg/dL (20.00-300.00); Microalbumin Urine Random <1.3 mg/dL (<=30.0)
[2024-06-12 10:14] LABS: Alanine Aminotransferase 19 U/L (14-59); Albumin Globulin Ratio 0.8; Albumin Level 3.1 g/dL (3.4-5.0); Alkaline Phosphatase 87 U/L (46-116); Anion Gap 9.3; Aspartate Amino Transferase 13 U/L (15-37); BUN Creatinine Ratio 5.9; Bilirubin Total 0.4 mg/dL (0.2-1.0); Calcium 8.9 mg/dL (8.5-10.1); Carbon Dioxide 29.3 mmol/L (21.0-32.0); Chloride 104 mmol/L (98-107); Chol HDL Ratio 3.1; Cholesterol 147 mg/dL (<=200); Estimated GFR (African America >60 (>=60 mL/min/1.73m^2); Estimated GFR (Non-African Ame 54 (>=60 mL/min/1.73m^2); Globulin 3.8 g/dL; Glucose 64 mg/dL (74-106); HDL Cholesterol 47 mg/dL (40-60); LDL Cholesterol Calculated 75.8 mg/dL; Potassium 3.6 mmol/L (3.5-5.1); Sodium 139 mmol/L (136-145); Total Protein 6.9 g/dL (6.4-8.2); Triglycerides 121 mg/dL (<=150); VLDL CHOLESTEROL 24.2 mg/dL
== END 2024-06-12 09:08 | disposition home or self-care (01) ==
LOC: LAB 09:10
DX: E78.2 Mixed hyperlipidemia (principal); I10 Essential (primary) hypertension
CPT/HCPCS: 36415; 80053; 80061; 82043; 82570; 85025

== ENCOUNTER 2024-06-13 08:07 | Outpatient (OUT) | payer MEDICARE, SELFPAY ==
--- NOTE | 2024-06-13 08:12 | MM_ITS ---
Patient Name: SHERRI DUNN MR#: [id number] : 1950 Exam Date: 06/13/2024 Ordering Doctor: SONU ESCAMILLA RADIOLOGY REPORT PROCEDURE: MM TOMOSYNTHESIS SCREENING BI COMPARISON: MG MAMM SCREEN 3D [place] CAD, 10/27/2021. MM TOMOSYNTHESIS SCREENING BI, 11/02/2022. INDICATIONS: Screening Calculator Name NCI Breast Cancer Risk Assessment Tool 5 Year Breast Cancer Risk 1.30% Lifetime Breast Cancer Risk 3.30% Personal Breast Cancer No Personal Ovarian Cancer No Treatments None Family Cancers None LOCATION: [facility] BREAST COMPOSITION: There are scattered areas of fibroglandular density. FINDINGS: DIAGNOSTIC CATEGORY 1--NEGATIVE. NO CHANGE FROM COMPARISON ASSESSMENT. Scattered benign-appearing calcifications are present. RIGHT BREAST: No significant suspicious finding. LEFT BREAST: No significant suspicious finding. RECOMMENDATIONS: ROUTINE MAMMOGRAM AND CLINICAL EVALUATION IN 12 MONTHS. PLEASE NOTE: A NORMAL MAMMOGRAM DOES NOT EXCLUDE THE POSSIBILITY OF BREAST CANCER. A CLINICALLY SUSPICIOUS PALPABLE LUMP SHOULD BE BIOPSIED. Dictated by: Osmany Baires MD on 06/13/2024 at 09:49 Approved by: Osmany Baires MD on 06/13/2024 at 09:51
--- OUTSIDE RECORDS SUMMARY | 2024-06-13 08:25 | XMS_ITS | CCD ---
Author Organization [facility] Inform ion Partnership [facility] Care Team Providers Care Jawbone Puller Name Role Phone Dede Garcia Unavailable Jaime Paulino Unavailable Gume Ziegler Unavailable DO Gume Ziegler Attending Provider [phone] MD Nevin Ramirez Primary Care Provider DO [...] Attending Unavailable Gabriel Qiu Admitting Unavailable [place], [facility] Unavailable Gabriel Qiu Attending Unavailable Lazarus, Gabriel Admitting Unavailable Gume Ziegler Attending Unavailable Hykes, Gume Stark Admitting Unavailable [place], [facility] Primary [facility] Unavailable Gume Ziegler Attending Unavailable Hykes, Gume Stark Admitting Unavailable [place], [facility] Primary Care Unavailable [place], [facility] Primary [facility] Unavailable Gabriel Qiu Attending Unavailable Lazarus, Gabriel Admitting Unavailable Gracia Woodruff Unavailable Ashley LEROY, [facility] Primary Care Provider Ashley LEROY, [facility] Primary Care Provider Ashley LEROY, [facility] Primary Care Provider JOLLY SMITH Attending Unavailable [facility] Primary Care Unavailable JORDAN SMITHA Referring Unavailable JORDAN SMITHA Attending Unavailable SMITH, JOLLY Referring Unavailable [facility] Primary Care Unavailable RICHARDSON RINCON Attending Unavailable SMITH, JOLLY Referring Unavailable [facility] Primary Care Unavailable Candy LEROY, Rocky Primary Care Provider Sonu Connelly NP Unavailable LLOYD JOLLY Referring Unavailable [facility] Primary Care Unavailable ASHLEY, ROONEY Attending Unavailable [facility] Attending Unavailable SONU CONNELLY Attending Unavailabl e SONU CONNELLY Attending Unavailabl e Allergies Allergy Classification Reported Allergen(s) Allergy Type Date of Onset Reaction(s) Facility (20 sources) Ciprofloxacin; Translations: [CIPROFLOXACIN] Drug Allergy 3 Unknown [facility] (20 sources) Codeine; Translations: [CODEINE] Drug Allergy 2 Unknown [facility] (20 sources) metroNIDAZOLE; Translations: [METRONIDAZOLE] Drug Allergy 2 Unknown [facility] (9 sources) Penicillin V Drug Allergy Ebix Other (3 sources) Cefaclor; Translations: [cefaclor] Drug Allergy 2 Heartburn [facility] (3 sources) Dicyclomine; Translations: [dicyclomine] Drug Allergy [address] [facility] (14 sources) Penicillins; Translations: [Penicillins] Allergy to substance [address] [facility] (1 source) Adhesive agent Drug allergy (disorder) [facility] (1 source) Ciprofloxacin Drug Allergy 4 [facility] (1 source) Codeine Drug Allergy 3 [facility] (1 source) Latex Drug allergy (disorder) [facility] (1 source) NSAIDs Drug allergy (disorder) 3 [facility] (1 source) Codeine Drug Allergy 2 [facility] (1 source) metroNIDAZOLE Drug Allergy 2 [facility] (7 sources) Penicillin G; Translations: [PENICILLIN G] Drug Allergy 4 [facility] Work Phone: Medications Current Medications Medication Drug Class(es) Dates Sig (Normalized) Sig (Original) [id number] 200 actuat albuterol 0.09 mg/actuat metered dose [...] day Active apixaban 5 mg oral tablet (18 sources) Factor Xa Inhibitor Start: 06-01-2023 End: [...] mg / cholecalciferol 200 unt oral tablet (20 sources) Vitamin D Start: 06-04-2024 take 1 [...] Start: 09-01-2022 take 2 tablets by mo [facility] every twelve hours Calcium 500 [...] 12:00am cetirizine hydrochloride 10 mg oral tablet (4 sources) Histamine-1 Receptor Antagonist Start: 06-04-2024 End: [...] 12:00am Start: 12-18-2020 take 1 capsule by [facility] every twelve hours Colace 100 MG 1 CAPSULE Orally TWICE A DAY for 30 day(s) Nov, Not-Taking fluticasone propionate 0.05 mg/actuat metered dose nasal spray (20 sources) Corticosteroid Start: 01-06-2025 take 1 spray(s) nasal route once daily [...] Active losartan potassium 100 mg oral tablet (18 sources) Angiotensin 2 Receptor Jessie Start: 05-03-2023 [...] Active metoprolol tartrate 25 mg oral tablet (18 sources) beta-Adrenergic Jessie Start: 06-27-2023 End: 12-01-2024 [...] Inhale 0 Active take 1 puff(s) by in halation once daily Anoro Ellipta 62.5-25 MCG/INH 1 [...] Chronic Chronic obstructive pulmonary disease and bronchiectasis (15 sources) Pulmonary emphysema; Translations: [Other emphysema] Onset: 3 05-17-2023 Chronic Coagulation and hemorrhagic disorders (20 sources) Other thrombophilia; Translations: [Secondary hypercoagulable state] [...] wrist] Onset: 1 Resolved: 1 Chronic Osteoporosis (12 sources) Senile osteoporosis; Translations: [Age-related osteoporosis without current pathological fracture] Onset: 4 02-21-2024 Chronic Other aftercare (1 source) Other terminal block assembler (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 therapy; Translations: [OTH CLIENT RELATIONS REPRESENTATIVE CURRENT DRUG THERAPY] Onset: 2 Episodic Other [...] Other hereditary and degenerative nervous system conditions (12 sources) Restless legs; Translations: [Restless legs syndrome] Onset: 3 05-17-2023 Chronic Other upper respiratory disease (3 sources) Seasonal [...] [Hematochezia] Onset: 10-28-2021 Resolved: 10-28-2021 Episodic Hemorrhoids (12 sources) Hemorrhoids; Translations: [Unspecified hemorrhoids] Onset: 06-29-2023 12-23-2021 Episodic Mood disorders (10 sources) Mood disorders Onset: 05-17-2023 05-17-2023 Nonspecific chest pain (10 sources) Chest pain; Translations: [Chest pain, unspecified] Onset: 06-23-2023 06-23-2023 Episodic Other aftercare (8 sources) Long-term current use of anticoagulant; Translations: [snf (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 anticoagulants] Onset: 06-23-2023 06-23-2023 Episodic Other aftercare (4 sources) manager terminal (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 anticoagulants; Translations: [snf (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 anticoagulants] Onset: 06-23-2023 Episodic Other bone disease and musculoskeletal deformities (10 sources) Osteopenia; Translations: [Other specified disorders of [...] conditions (not mental disorders or infectious disease) (16 sources) Encounter for screening mammogram for malignant neoplasm of breast; Translations: [Patient encounter status] Onset: 10-27-2021 Episodic Unclassified (5 sources) Onset: 06-23-2023 Resolved: 01-09-2024 06-23-2023 Results Test Name Value Interpretation Reference Range Facility ALL CBC WITH AUTO DIFFon BASOPHILS ABSOLUTE AUTO 0.1 [facility] Basophils/100 WBC (Bld) 0.6 % 0.2 - 2.0 % [facility] Eosinophils/100 WBC (Bld) 1.7 % 0.9 - 7.0 % [facility] Erythrocyte distribution width (RBC) [Ratio] 12.9 % 11.0 - 15.0 % [facility] Hematocrit (Bld) [Volume fraction] 42.5 % 36.0 - 48.0 % [facility] Hemoglobin (Bld) [Mass/Vol] 13.7 g/dL 12.0 - 16.0 g/dL [facility] IMMATURE GRANULOCYTES ABS AUTO 0.03 [facility] Immature granulocytes/100 WBC (Bld) 0.3 % 0.0 - 0.5 % [facility] Interpretation and review of laboratory results Abnormal [facility] LYMPHOCYTES ABSOLUTE AUTO 2 [facility] Lymphocytes/100 WBC (Bld) 21.1 % 20.5 - 60.0 % [facility] MCH (RBC) [Entitic mass] 30 pg 26.7 - 34.0 pg [facility] MCHC (RBC) [Mass/Vol] 32.2 g/dL 29.9 - 35.2 g/dL [facility] MCV (RBC) [Entitic vol] 93 fL 81.0 - 99.0 fL [facility] MONOCYTES ABSOLUTE AUTO 0.7 [facility] Monocytes/100 WBC (Bld) 7.6 % 1.7 - 12.0 % [facility] NEUTROPHILS ABSOLUTE AUTO 6.7 High [facility] Neutrophils/100 WBC (Bld) 68.7 % 43.0 - 75.0 % [facility] Platelet mean volume (Bld) [Entitic vol] 9.7 fL 9.5 - 13.5 fL [facility] RBC 4.57 [facility] WBC 9.7 [facility] ALL CBC WITH AUTO DIFFon BASOPHILS ABSOLUTE AUTO 0.1 [facility] Basophils/100 WBC (Bld) 0.7 % 0.2 - 2.0 % [facility] Eosinophils/100 WBC (Bld) 1.9 % 0.9 - 7.0 % [facility] Erythrocyte distribution width (RBC) [Ratio] 13.7 % 11.0 - 15.0 % [facility] Hematocrit (Bld) [Volume fraction] 44.8 % 36.0 - 48.0 % [facility] Hemoglobin (Bld) [Mass/Vol] 14.3 g/dL 12.0 - 16.0 g/dL [facility] IMMATURE GRANULOCYTES ABS AUTO 0.02 [facility] Immature granulocytes/100 WBC (Bld) 0.3 % 0.0 - 0.5 % [facility] LYMPHOCYTES ABSOLUTE AUTO 2.4 [facility] Lymphocytes/100 WBC (Bld) 31.9 % 20.5 - 60.0 % [facility] MCH (RBC) [Entitic mass] 30.6 pg 26.7 - 34.0 pg [facility] MCHC (RBC) [Mass/Vol] 31.9 g/dL 29.9 - 35.2 g/dL [facility] MCV (RBC) [Entitic vol] 95.7 fL 81.0 - 99.0 fL [facility] MONOCYTES ABSOLUTE AUTO 0.5 [facility] Monocytes/100 WBC (Bld) 7.0 % 1.7 - 12.0 % [facility] NEUTROPHILS ABSOLUTE AUTO 4.4 [facility] Neutrophils/100 WBC (Bld) 58.2 % 43.0 - 75.0 % [facility] Platelet mean volume (Bld) [Entitic vol] 10.7 fL 9.5 - 13.5 fL [facility] TBH EO # 0.1 [facility]H PLT 219 [facility] TBH RBC 4.68 [facility] TBH WBC 7.5 [facility] NM Heart Perfusion W stress and W radionuclide Jesse 07-07-2023 Normal Lexiscan Myoview cardiac perfusion stress test. No evidence of ischemia or myocardial infarction by perfusion imaging. Normal left ventricular systolic function, ejection fraction 77%. No previous studies are available for comparison. Signed by: Luisa Cabrera 07/07/2023 4:22 PM Dictation workstation: [id number] [facility] MMODAL Interpreted By: Luisa Cabrera and Beal Gina STUDY: MYOCARDIAL PERFUSION STRESS TEST WITH LEXISCAN Performing facility: [facility], [address] [place] [address], Suite [facility], [address] Provider: Jolly Smith MD, FACC PCP: Dr. Reyna RAMIREZ Supervising provider: Jolly Smith MD, FACC INDICATION: Atherosclerosis of coronary artery of [place] heart without angina pectoris, unspecified vessel or lesion type I25.10 (ICD-10-CM); Chest pain, unspecified type R07.9 (ICD-10-CM) HISTORY: Gender: F; Age: 72 y/o ; Height: HT 157.5 cm cm; Weight: WT 65.318 kg kg. CAD; Chest Pain; HTN; COPD; SOB; Arrhythmias; AFib, Palpitations; Currently smoking. COMPARISON: No comparison. ACCESSION NUMBER(S): [id number] ORDERING CLINICIAN: JOLLY SMITH TECHNIQUE: ONE DAY [...] normal. There was evidence of motion artifact. [facility] MMODAL Luisa Cabrera M D - 07/07/2023 Interpreted By: Luisa Cabrera and Beal Gina STUDY: MYOCARDIAL PERFUSION STRESS TEST WITH LEXISCAN Performing facility: [facility], [address] [place] [address], [address], [address] Provider: Jolly Smith MD, FAC PCP: Dr. Reyna RAMIREZ Supervising provider: Jolly Smith MD, FACC INDICATION: Atherosclerosis of coronary artery of [place] heart without angina pectoris, unspecified vessel or lesion type I25.10 (ICD-10-CM); Chest pain, unspecified type R07.9 (ICD-10-CM) HISTORY: Gender: F; Age: 72 y/o ; Height: HT 157.5 cm cm; Weight: WT 65.318 kg kg. CAD; Chest Pain; HTN; COPD; SOB; Arrhythmias; AFib, Palpitations; Currently smoking. COMPARISON: No comparison. ACCESSION NUMBER(S): [id number] ORDERING CLINICIAN: JOLLY SMITH TECHNIQUE: ONE DAY [...] Luisa Cabrera 07/07/2023 4:22 PM Dictation workstation: [id number] [facility] Work Phone: Radiology Study observation (narrative) [facility] Work Phone: NM Heart Perfusion W stress and W radionuclide IVOrdered By: Luisa Cabrera on 07-07-2023 [facility] Work Phone: NUCLEAR STRESS TESTon 2023 NUCLEAR STRESS TEST Interpreted By: Luisa Cabrera, Roya Bahena STUDY: MYOCARDIAL PERFUSION STRESS TEST WITH LEXISCAN Performing facility: [facility], [address], [address], [place] [address] [facility] Provider: Jolly Smith MD, [facility] PCP: Dr. Reyna RAMIREZ Supervising provider: Jolly Smith MD, [facility] INDICATION: Atherosclerosis of coronary artery of [place] heart without angina pectoris, unspecified vessel or lesion type I25.10 (ICD-10-CM); Chest pain, unspecified type R07.9 (ICD-10-CM) HISTORY: Gender: F; Age: 72 y/o ; Height: HT 157.5 cm cm; Weight: WT 65.318 kg kg. CAD; Chest Pain; HTN; COPD; SOB; Arrhythmias; AFib, Palpitations; Currently smoking. COMPARISON: No comparison. ACCESSION NUMBER(S): [id number] ORDERING CLINICIAN: JOLLY SMITH TECHNIQUE: ONE DAY [...] Luisa Cabrera 07/07/2023 4:22 PM Dictation workstation: [id number] [facility] ECG 12 Leadon 06-23-2023 [facility] Work Phone: Patient Letter FTMCon 2022 Patient Letter FT March 23, 2023 [place] [address] : 1950 Dear Cydney, This is a reminder that you are due for an appointment with [facility]. Please contact our office at [phone] to schedule an appointment at your earliest convenience. Thank you, [facility] Reminderson 03-23-2023 Reminders - From: Juliane Gillis MA To: [facility] - Reminders/Recalls; Sent: 02/04/2023 13:34:26 EDT Show up: 02/04/2023 13:34:00 EDT Subject: colon recall Reminder Message 10 year recall Salam 09/22/12 first recall letter second recall letter [facility] Patient Letter FTon 2022 Patient Letter FT February 07, 2023 [address] [place] [address] : 1950 Dear Cydney, This is a reminder that you are due for an appointment with [facility]. Please contact our office at [phone] to schedule an appointment at your earliest convenience. Thank you, [facility] Patient Letter FTMCon 2022 Patient Letter FT September 29, 2022 [place] [address] [place] 1950 Dear Cydney, This is a SECOND ATTEMPT to remind you that you are due for an appointment with [facility]. Please contact our office at [phone] to schedule an appointment at your earliest convenience. Thank you, [facility] Reminderson 09-29-2022 Reminders - From: Ligia Roberts To: [facility] - Reminders/Recalls; Sent: 09/13/2022 10:56:07 EDT Show up: 09/13/2022 10:56:00 EDT Subject: Ambulatory Reminder Reminder/Recall arturo aguilar 10 year colon recall 09/19/2022 first recall letter second recall letter [facility] Patient Letter FTMCon 2022 Patient Letter FT September 13, 2022 CY[address] [place] [address] [place] 1950 Dear Cydney, This is a reminder that you are due for an appointment with [facility]. Please contact our office at [phone] to schedule an appointment at your earliest convenience. Thank you, [facility] PROF CHEM 8 (BAS METB)on Anion gap [Moles/Vol] 10.8 mmol/L Normal [facility] Comment on above: Performed By: #### B MP #### [facility] [address] [place] [address] Dr. Josef Fraire Calcium [Mass/Vol] 9.4 mg/dL Normal 8.5-10.1 [facility] Comment on above: Performed By: #### B MP #### [facility] [address] [address] [address] Josef Fraire Chloride [Moles/Vol] 104 mmol/L Normal 98-107 [facility] Comment on above: Performed By: #### B MP #### [facility] [address] [address] [address] Josef Fraire CO2 [Moles/Vol] 28.4 mmol/L Normal 21.0-32.0 [facility] Comment on above: Performed By: #### B MP #### [facility] [address] [address] [address] Josef Fraire Creatinine [Mass/Vol] 1.03 mg/dL Critically high 0.55-1.02 [facility] Comment on above: Performed By: #### B MP #### [facility] [address] [address] [address] Josef Fraire EGFR-AF GAMBIAN >60 Normal >=60 [facility] Comment on above: Performed By: #### B MP #### [facility] [address] [address] [address] Josef Fraire EGFR-NON AF GAMBIAN 53 mL/min/1.73m2 Critically low >=60 [facility] Comment on above: Performed By: #### B MP #### [facility] [address] [address] [address] Josef Fraire Glucose [Mass/Vol] 82 mg/dL Normal 74-106 [facility] Comment on above: Performed By: #### B MP #### [facility] [address] [address] [address] Josef Fraire Potassium [Moles/Vol] 4.2 mmol/L Normal 3.5-5.1 [facility] Comment on above: Performed By: #### B MP #### [facility] [address] [place] [address] Dr. Josef Fraire Sodium [Moles/Vol] 139 mmol/L Normal 136-145 [facility] Comment on above: Performed By: #### B MP #### [facility] [address] [address] [address] Josef Fraire Urea nitrogen [Mass/Vol] 10.0 mg/dL Normal 7.0-18.0 [facility] Comment on above: Performed By: #### B MP #### [facility] [address] [address] [address] Josef Fraire Urea nitrogen/Creatinine [Mass ratio] 9.7 mg/mg Normal [facility] Comment on above: Performed By: #### B MP #### [facility] [address] [place] [address] Dr. Josef Fraire CBC AUTO DIFFon 01-28-2022 BASO # 0.1 103/ul Normal 0.0-0.1 [facility] Comment on above: Performed By: #### C BC #### [facility] [address] [place] [address] Dr. Josef Fraire Basophils/100 WBC (Bld) 0.6 % Normal 0.2-2.0 [facility] Comment on above: Performed By: #### C BC #### [facility] [address] [place] [address] Dr. Josef Fraire EO # 0.2 103/ul Normal 0.0-0.7 [facility] Comment on above: Performed By: #### C BC #### [facility] [address] [place] [address] Dr. Josef Fraire Eosinophils/100 WBC (Bld) 1.5 % Normal 0.9-7.0 [facility] Comment on above: Performed By: #### C BC #### [facility] [address] [place] [address] Dr. Josef Frarie Erythrocyte distribution width (RBC) [Ratio] 13.4 % Normal 11.0-15.0 [facility] Comment on above: Performed By: #### C BC #### [facility] [address] [place] [address] Dr. Josef Fraire Hematocrit (Bld) [Volume fraction] 43.0 % Normal 36.0-48.0 [facility] Comment on above: Performed By: #### C BC #### [facility] [address] [place] [address] Dr. Josef Fraire Hemoglobin (Bld) [Mass/Vol] 14.6 g/dL Normal 12.0-16.0 [facility] Comment on above: Performed By: #### C BC #### [facility] [address] [place] [address] Dr. Josef Fraire IG # 0.05 10e3/ul Critically high 0.00-0.03 [facility] Comment on above: Performed By: #### C BC #### [facility] [address] [place] [address] Dr. Josef Fraire IG % 0.5 % Normal 0.0-0.5 [facility] Comment on above: Performed By: #### C BC #### [facility] [address] [place] [address] Dr. Josef Fraire LYMPH # 3.1 103/ul Normal 1.2-3.8 [facility] Comment on above: Performed By: #### C BC #### [facility] [address] [place] [address] Dr. Josef Fraire Lymphocytes/100 WBC (Bld) 29.5 % Normal 20.5-60.0 [facility] Comment on above: Performed By: #### C BC #### [facility] [address] [place] [address] Dr. Josef Fraire MANUAL DIFF REQ NO Normal [facility] Comment on above: Performed By: #### C BC #### [facility] [address] [place] [address] Dr. Josef Fraire MCH (RBC) [Entitic mass] 30.0 pg Normal 26.7-34.0 [facility] Comment on above: Performed By: #### C BC #### [facility] [address] [place] [address] Dr. Josef Fraire MCHC (RBC) [Mass/Vol] 34.0 g/dL Normal 29.9-35.2 [facility] Comment on above: Performed By: #### C BC #### [facility] [address] [place] [address] Dr. Josef Fraire MCV (RBC) [Entitic vol] 88.3 fL Normal 81.0-99.0 [facility] Comment on above: Performed By: #### C BC #### [facility] [address] [place] [address] Dr. Josef Fraire MONO # 0.7 103/ul Normal 0.3-0.8 [facility] Comment on above: Performed By: #### C BC #### [facility] [address] [place] [address] Dr. Josef Fraire Monocytes/100 WBC (Bld) 6.8 % Normal 1.7-12.0 [facility] Comment on above: Performed By: #### C BC #### [facility] [address] [place] [address] Dr. Josef Fraire NEUT # 6.5 103/ul Normal 1.4-6.5 [facility] Comment on above: Performed By: #### C BC #### [facility] [address] [place] [address] Dr. Josef Fraire Neutrophils/100 WBC (Bld) 61.1 % Normal 43.0-75.0 [facility] Comment on above: Performed By: #### C BC #### [facility] [address] [place] [address] Dr. Josef Fraire Platelet mean volume (Bld) [Entitic vol] 10.7 fL Normal 9.5-13.5 [facility] Comment on above: Performed By: #### C BC #### [facility] [address] [place] [address] Dr. Josef Fraire PLT 313 103/ul Normal 150-450 [facility] Comment on above: Performed By: #### C BC #### [facility] [address] [place] [address] Dr. Josef Fraire RBC 4.87 106/ul Normal 4.20-5.40 [facility] Comment on above: Performed By: #### C BC #### [facility] [address] [place] [address] Dr. Josef Fraire WBC 10.7 103/ul Normal 4.0-11.0 [facility] Comment on above: Performed By: #### C BC #### [facility] [address] [place] [address] Dr. Josef Fraire ER URINE PROFILEon 2 Bilirubin Ql (U) Negative Normal NEGATIVE [facility] Comment on above: Performed By: #### E RUR #### [facility] [address] [place] [address] Dr. Josef Fraire Clarity (U) CLEAR Normal CLEAR [facility] Comment on above: Performed By: #### E RUR #### [facility] [address] [place] [address] Dr. Josef Fraire Color (U) LT. YELLOW Normal YELLOW [facility] Comment on above: Performed By: #### E RUR #### [facility] [address] [place] [address] Dr. Josef FISHER A micrscopic examination will be performed if indicated. Normal [facility] Comment on above: Performed By: #### E RUR #### [facility] [address] [place] [address] Dr. Josef Fraire Glucose Ql (U) Negative Normal NEGATIVE [facility] Comment on above: Performed By: #### E RUR #### [facility] [address] [place] [address] Dr. Josef Fraire Hemoglobin Ql (U) Negative Normal NEGATIVE [facility] Comment on above: Performed By: #### E RUR #### [facility] [address] [place] [address] Dr. Josef Fraire Ketones Ql (U) Negative Normal NEGATIVE [facility] Comment on above: Performed By: #### E RUR #### [facility] [address] [place] [address] Dr. Josef Fraire LEUKOCYTES Negative Normal NEGATIVE [facility] Comment on above: Performed By: #### E RUR #### [facility] [address] [place] [address] Dr. Josef Fraire Nitrite Ql (U) Negative Normal NEGATIVE [facility] Comment on above: Performed By: #### E RUR #### [facility] [address] [place] [address] Dr. Josef Fraire pH (U) 6.0 [pH] Normal 5-9 [facility] Comment on above: Performed By: #### E RUR #### [facility] [address] [place] [address] Dr. Josef Fraire SPEC GRAVITY <=1.005 Abnormal 1.005-<=1.025 [facility] Comment on above: Performed By: #### E RUR #### [facility] [address] [place] [address] Dr. Josef Fraire UA PROTEIN Negative Normal NEGATIVE/ TRACE [facility] Comment on above: Performed By: #### E RUR #### [facility] [address] [address] [address] Josef Fraire UR MICRO IND NOT INDICATED Normal [facility] Comment on above: Performed By: #### E RUR #### [facility] [address] [address] [address] Josef Fraire Urobilinogen Qn (U) 0.2 {Vero'U}/dL Normal 0.2 - 1. 0 [facility] Comment on above: Performed By: #### E RUR #### [facility] [address] [address] [address] Josef Fraire PROF CHEM 8 (BAS METB)on Anion gap [Moles/Vol] 14.6 mmol/L Normal [facility] Comment on above: Performed By: #### L IPID, CMP #### [facility] [address] [place] [address] Dr. Josef Fraire Calcium [Mass/Vol] 9.7 mg/dL Normal 8.5-10.1 [facility] Comment on above: Performed By: #### L IPID, CMP #### [facility] [address] [place] [address] Dr. Josef Fraire Chloride [Moles/Vol] 96 mmol/L Critically low 98-107 [facility] Comment on above: Performed By: #### L IPID, CMP #### [facility] [address] [address] [address] Josef Fraire CO2 [Moles/Vol] 25.8 mmol/L Normal 21.0-32.0 [facility] Comment on above: Performed By: #### L IPID, CMP #### [facility] [address] [place] [address] Dr. Josef Fraire Creatinine [Mass/Vol] 1.61 mg/dL Critically high 0.55-1.02 [facility] Comment on above: Performed By: #### L IPID, CMP #### [facility] [address] [address] [address] Josef Fraire EGFR-AF GAMBIAN 38 mL/min/1.73m2 Critically low >=60 [facility] Comment on above: Performed By: #### L IPID, CMP #### [facility] [address] [address] [address] Josef Fraire EGFR-NON AF GAMBIAN 32 mL/min/1.73m2 Critically low >=60 [facility] Comment on above: Performed By: #### L IPID, CMP #### [facility] [address] [address] [address] Josef Fraire Glucose [Mass/Vol] 119 mg/dL Critically high 74-106 [facility] Comment on above: Performed By: #### L IPID, CMP #### [facility] [address] [place] [address] Dr. Josef Fraire Potassium [Moles/Vol] 3.4 mmol/L Critically low 3.5-5.1 [facility] Comment on above: Result Comment: SPEC IMEN IS JUST SLIGHTLY HEMOLYZED AND SLIGHTLY LIPEMIC Performed By: #### L IPID, CMP #### [facility] [address] [address] [address] Josef Fraire Sodium [Moles/Vol] 133 mmol/L Critically low 136-145 [facility] Comment on above: Performed By: #### L IPID, CMP #### [facility] [address] [address] [address] Josef Fraire Urea nitrogen [Mass/Vol] 22.0 mg/dL Critically high 7.0-18.0 [facility] Comment on above: Performed By: #### L IPID, CMP #### [facility] [address] [address] [address] Josef Fraire Urea nitrogen/Creatinine [Mass ratio] 13.7 mg/mg Normal [facility] Comment on above: Performed By: #### L IPID, CMP #### [facility] [address] [address] [address] Josef Fraire TROPONIN, HIGH SENSITIVITYon 01-28-2022 HSTROP 8.3 pg/mL Normal 4.0-51.3 [facility] Comment on above: Result Comment: CUT- OFF POINTS HAVE BEEN ESTABLISHED BASED ON THE FOURTH UNIVERSAL DEFINITIONS OF MYOCARDIAL INFARCTION. THE UPPER REFERENCE LIMIT (URL) OF TROPONIN, DEFINED THE 99TH PERCENTILE OF cTnI DISTRIBUTION IN A REFERENCE POPULATION, HAS BEEN CONFIRMED THE DECISION THRESHOLD FOR PR DIAGNOSIS. Performed By: #### L IPID, CMP #### [facility] [address] [address] [address] Josef Fraire PROF CHEM 8 (BAS METB)on Anion gap [Moles/Vol] 14.6 mmol/L Normal [facility] Comment on above: Performed By: #### B MP #### [facility] [address] [place] [address] Dr. Josef Fraire Calcium [Mass/Vol] 10.6 mg/dL Critically high 8.5-10.1 [facility] Comment on above: Performed By: #### B MP #### [facility] [address] [place] [address] Dr. Josef Fraire Chloride [Moles/Vol] 97 mmol/L Critically low 98-107 [facility] Comment on above: Performed By: #### B MP #### [facility] [address] [place] [address] Dr. Josef Fraire CO2 [Moles/Vol] 29.5 mmol/L Normal 21.0-32.0 [facility] Comment on above: Performed By: #### B MP #### [facility] [address] [place] [address] Dr. Josef Fraire Creatinine [Mass/Vol] 1.34 mg/dL Critically high 0.55-1.02 [facility] Comment on above: Performed By: #### B MP #### [facility] [address] [place] [address] Dr. Josef Fraire EGFR-AF GAMBIAN 47 mL/min/1.73m2 Critically low >=60 [facility] Comment on above: Performed By: #### B MP #### [facility] [address] [place] [address] Dr. Josef Fraire EGFR-NON AF GAMBIAN 39 mL/min/1.73m2 Critically low >=60 [facility] Comment on above: Performed By: #### B MP #### [facility] [address] [address] [address] Josef Fraire Glucose [Mass/Vol] 88 mg/dL Normal 74-106 [facility] Comment on above: Performed By: #### B MP #### [facility] [address] [address] [address] Josef Fraire Potassium [Moles/Vol] 4.1 mmol/L Normal 3.5-5.1 [facility] Comment on above: Performed By: #### B MP #### [facility] [address] [place] [address] Dr. Josef Fraire Sodium [Moles/Vol] 137 mmol/L Normal 136-145 [facility] Comment on above: Performed By: #### B MP #### [facility] [address] [address] [address] Josef Fraire Urea nitrogen [Mass/Vol] 22.0 mg/dL Critically high 7.0-18.0 [facility] Comment on above: Performed By: #### B MP #### [facility] [address] [place] [address] Dr. Josef Fraire Urea nitrogen/Creatinine [Mass ratio] 16.4 mg/mg Normal [facility] Comment on above: Performed By: #### B MP #### [facility] [address] [address] [address] Josef Fraire PROF CHEM 8 (BAS METB)on Anion gap [Moles/Vol] 9.5 mmol/L Normal [facility] Comment on above: Performed By: #### B MP #### [facility] [address] [place] [address] Dr. Josef Fraire Calcium [Mass/Vol] 9.1 mg/dL Normal 8.5-10.1 [facility] Comment on above: Performed By: #### B MP #### [facility] [address] [place] [address] Dr. Josef Fraire Chloride [Moles/Vol] 96 mmol/L Critically low 98-107 [facility] Comment on above: Performed By: #### B MP #### [facility] [address] [address] [address] Josef Fraire CO2 [Moles/Vol] 32.5 mmol/L Critically high 21.0-32.0 [facility] Comment on above: Performed By: #### B MP #### [facility] [address] [address] [address] Josef Fraire Creatinine [Mass/Vol] 0.76 mg/dL Normal 0.55-1.02 [facility] Comment on above: Performed By: #### B MP #### [facility] [address] [address] [address] Josef Fraire EGFR-AF GAMBIAN >60 Normal >=60 [facility] Comment on above: Performed By: #### B MP #### [facility] [address] [address] [address] Josef Fraire EGFR-NON AF GAMBIAN >60 Normal >=60 [facility] Comment on above: Performed By: #### B MP #### [facility] [address] [address] [address] Josef Fraire Glucose [Mass/Vol] 95 mg/dL Normal 74-106 [facility] Comment on above: Performed By: #### B MP #### [facility] [address] [address] [address] Josef Fraire Potassium [Moles/Vol] 3.0 mmol/L Critically low 3.5-5.1 [facility] Comment on above: Performed By: #### B MP #### [facility] [address] [address] [address] Josef Fraire Sodium [Moles/Vol] 135 mmol/L Critically low 136-145 [facility] Comment on above: Performed By: #### B MP #### [facility] [address] [address] [address] Josef Fraire Urea nitrogen [Mass/Vol] 9.0 mg/dL Normal 7.0-18.0 [facility] Comment on above: Performed By: #### B MP #### [facility] [address] [address] [address] Josef Fraire Urea nitrogen/Creatinine [Mass ratio] 11.8 mg/mg Normal [facility] Comment on above: Performed By: #### B MP #### [facility] [address] [address] [address] 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 This test has not been FDA [...] is terminated or revoked sooner. PERFORMED BY: [place] [address] PATHOLOGIST VOCATIONAL REHABILITATION SPECIALIST JOSUÉ LEE M.D. Performed By: #### C OVID 19 [facility] #### [address] COVID-19 Positive/NegativeOr dered By: Gabriel Qiu on 12-21-2021 SARS-CoV-2 (COVID-19) N gene CHRIS+probe Ql (Resp) Negative Negative [facility] Comment on above: Testing for SARS-CoV -2 by RT-PCR This test was developed and its performance characteristics determined by [employer] [place] [employer] (BD) and validated at the [facility]. This test has not been FDA [...] 11-27 Calcium [Mass/Vol] 9.7 mg/dL Normal 8.2-10.2 [facility] Comment on above: Result Comment: PERF ORMED BY: [place] [address] PATHOLOGIST VOCATIONAL REHABILITATION SPECIALIST JOSUÉ LEE M.D. Performed By: #### C BC, BMP #### [address] Chloride [Moles/Vol] 104 mmol/L Normal 95-114 [facility] Comment on above: Performed By: #### C BC, BMP #### [address] [place] [id number] [place] CO2 [Moles/Vol] 26.9 mmol/L Normal 22.0-30.0 [facility] Comment on above: Performed By: #### C BC, BMP #### [address] Creatinine [Mass/Vol] 0.71 mg/dL Normal 0.44-1.03 [facility] Comment on above: Performed By: #### C BC, BMP #### [address] Estimated GFR ( Juliette > 60 Normal [facility] Comment on above: Result Comment: GFR estimated reference range: According to KDOQI guidelines, <60 ml/min/1.73m2 is sufficient to diagnose a patient with chronic kidney disease. Performed By: #### C BC, BMP #### [address] Estimated GFR (Non- Am > 60 Normal [facility] Comment on above: Performed By: #### C BC, BMP #### [address] Glucose [Mass/Vol] 81 mg/dL Normal 70-100 [facility] Comment on above: Result Comment: [place] om Glucose Reference Range is dependent on time and content of last meal. Glucose of more than 200 mg/dL in a nonstressed, ambulatory subject supports the diagnosis of Diabetes Mellitus. ADA recommended reference range Performed By: #### C BC, BMP #### [address] Potassium [Moles/Vol] 4.1 mmol/L Normal 3.5-5.1 [facility] Comment on above: Performed By: #### C BC, BMP #### [address] Sodium [Moles/Vol] 138 mmol/L Normal 136-146 [facility] Comment on above: Performed By: #### C BC, BMP #### [address] Urea nitrogen [Mass/Vol] 7 mg/dL Low 9-23 [facility] Comment on above: Performed By: #### C BC, BMP #### [place] [address] [place] Basophils Auto (Bld) [#/Vol] Ordered By: Gabriel Qiu on 12-11-2021 Basophils (Bld) [#/Vol] 0.1 10*3/uL 0.0-0.2 [facility] Basophils/100 WBC Auto (Bld) Ordered By: Gabriel Qiu on 12-11-2021 Basophils/100 WBC (Bld) 0.9 % . [facility] Blood hemoglobin measurement (mass/volume)Ordered By: Gabriel Qiu on 12-11-2021 Hemoglobin (Bld) [Mass/Vol] 15.1 g/dL 11.8-15.4 [facility] Blood leukocytes automated c ount (number/volume)Ordered By: Gabriel Qiu on 12-11-2021 WBC (Bld) [#/Vol] 9.0 10*3/uL 4.5-11.0 [facility] Complete Blood Count Auto Di ffon 12-11-2021 Basophils (Bld) [#/Vol] 0.1 10*3/uL Normal 0.0-0.2 [facility] Comment on above: Result Comment: PERF ORMED BY: [place] [address] PATHOLOGIST VOCATIONAL REHABILITATION SPECIALIST JOSUÉ LEE M.D. Performed By: #### C BC, BMP #### [address] Basophils/100 WBC (Bld) 0.9 % Normal . [facility] Comment on above: Performed By: #### C BC, BMP #### [address] Eosinophils (Bld) [#/Vol] 0.1 10*3/uL Normal 0.0-0.45 [facility] Comment on above: Performed By: #### C BC, BMP #### [address] Eosinophils/100 WBC (Bld) 1.3 % Normal . [facility] Comment on above: Performed By: #### C BC, BMP #### [address] Erythrocyte distribution width (RBC) [Ratio] 14.4 % Normal 11.9-15.3 [facility] Comment on above: Performed By: #### C BC, BMP #### [place] [address] [place] Hematocrit (Bld) [Volume fraction] 45.2 % Normal 34.0-46.4 [facility] Comment on above: Performed By: #### C BC, BMP #### [address] Hemoglobin (Bld) [Mass/Vol] 15.1 g/dL Normal 11.8-15.4 [facility] Comment on above: Performed By: #### C BC, BMP #### [address] Lymphocytes (Bld) [#/Vol] 1.8 10*3/uL Normal 1.00-4.8 [facility] Comment on above: Performed By: #### C BC, BMP #### [address] Lymphocytes/100 WBC (Bld) 19.7 % Normal . [facility] Comment on above: Performed By: #### C BC, BMP #### [address] MCH (RBC) [Entitic mass] 30.0 pg Normal 24.7-34.3 [facility] Comment on above: Performed By: #### C BC, BMP #### [address] MCV (RBC) [Entitic vol] 89.4 fL Normal 80-100 [facility] Comment on above: Performed By: #### C BC, BMP #### [address] Mean Corpuscular HGB Conc 33.5 g/dL Normal 32.0-35.0 [facility] Comment on above: Performed By: #### C BC, BMP #### [address] Monocytes (Bld) [#/Vol] 0.6 10*3/uL Normal 0.0-0.8 [facility] Comment on above: Performed By: #### C BC, BMP #### [address] Monocytes/100 WBC (Bld) 6.8 % Normal . [facility] Comment on above: Performed By: #### C BC, BMP #### [facility] [address] [place] [address] [place] Neutrophils (Bld) [#/Vol] 6.4 10*3/uL Normal 1.8-7.7 [facility] Comment on above: Performed By: #### C BC, BMP #### [facility] [address] [place] [address] [place] Neutrophils/100 WBC (Bld) 71.3 % Normal . [facility] Comment on above: Performed By: #### C BC, BMP #### [facility] [address] [place] [address] [place] Nucleated RBC/100 WBC (Bld) [Ratio] 0.0 % Normal 0-0.5 [facility] Comment on above: Performed By: #### C BC, BMP #### [facility] [address] [place] [address] [place] Platelet mean volume (Bld) [Entitic vol] 9.5 fL Normal 6.3-10.7 [facility] Comment on above: Performed By: #### C BC, BMP #### [facility] [address] [place] [address] [place] Platelets (Bld) [#/Vol] 245 10*3/uL Normal 150-450 [facility] Comment on above: Performed By: #### C BC, BMP #### [facility] [address] [place] [address] [place] RBC (Bld) [#/Vol] 5.05 10*6/uL High 3.60-5.00 [facility] Comment on above: Performed By: #### C BC, BMP #### [facility] [address] [place] [address] [place] WBC (Bld) [#/Vol] 9.0 10*3/uL Normal 4.5-11.0 [facility] Comment on above: Performed By: #### C BC, BMP #### [facility] [address] [place] [address] [place] Creatinine and Glomerular fi ltration rate.predicted panel (S/P/Bld)Ordered By: Gabriel Qiu on 12-11-2021 Creatinine [Mass/Vol] 0.71 mg/dL 0.44-1.03 [facility] ECG 12 lead ECGon 12-11-2021 ECG 12 lead ECG [facility] Main [address] [address] Electrocardiograph Report Signed Patient: Cydney Villa MR#: [id number] : 1950 Acct:[id number] Age/Sex: 71 / F ADM Date: 12/11/21 Loc: Room: Type: [facility] Attending Dr: Gabriel Qiu DO Ordering [...] Signed By Alberto Gray MD 0919 Normal [facility] Eosinophils Auto (Bld) [#/Vo l]Ordered By: Gabriel Qiu on 12-11-2021 Eosinophils (Bld) [#/Vol] 0.1 10*3/uL 0.0-0.45 [facility] Eosinophils/100 WBC Auto (Bl d)Ordered By: Gabriel Qiu on 12-11-2021 Eosinophils/100 WBC (Bld) 1.3 % . [facility] Erythrocyte distribution wid th Auto (RBC) [Ratio]Ordered By: Gabriel Qiu on 12-11-2021 Erythrocyte distribution width (RBC) [Ratio] 14.4 % 11.9-15.3 [facility] Estimated glomerular filtrat ion rate (GFR) non- AmericanOrdered By: Gabriel Qiu on 12-11-2021 GFR/1.73 sq M.predicted among non-blacks MDRD (S/P/Bld) [Vol rate/Area] > 60 mL/Min [facility] Hematocrit Auto (Bld) [Volum e fraction]Ordered By: Gabriel Qiu on 12-11-2021 Hematocrit (Bld) [Volume fraction] 45.2 % 34.0-46.4 [facility] Laboratory - Hematology and Cell countsOrdered By: Gabriel Qiu on 12-11-2021 Nucleated RBC/100 WBC (Bld) [Ratio] 0.0 % 0-0.5 [facility] Lymphocytes Auto (Bld) [#/Vo l]Ordered By: Gabriel Qiu on 12-11-2021 Lymphocytes (Bld) [#/Vol] 1.8 10*3/uL 1.00-4.8 [facility] Lymphocytes/100 WBC Auto (Bl d)Ordered By: Gabriel Qiu on 12-11-2021 Lymphocytes/100 WBC (Bld) 19.7 % . [facility] MCH Auto (RBC) [Entitic mass ]Ordered By: Gabriel Qiu on 12-11-2021 MCH (RBC) [Entitic mass] 30.0 pg 24.7-34.3 [facility] MCHC Auto (RBC) [Mass/Vol]Or dered By: Gabriel Qiu on 12-11-2021 MCHC (RBC) [Mass/Vol] 33.5 g/dL 32.0-35.0 [facility] MCV Auto (RBC) [Entitic vol] Ordered By: Gabriel Qiu on 12-11-2021 MCV (RBC) [Entitic vol] 89.4 fL 80-100 [facility] Monocytes Auto (Bld) [#/Vol] Ordered By: Gabriel Qiu on 12-11-2021 Monocytes (Bld) [#/Vol] 0.6 10*3/uL 0.0-0.8 [facility] Monocytes/100 WBC Auto (Bld) Ordered By: Gabriel Qiu on 12-11-2021 Monocytes/100 WBC (Bld) 6.8 % . [facility] Neutrophils Auto (Bld) [#/Vo l]Ordered By: Gabriel Qiu on 12-11-2021 Neutrophils (Bld) [#/Vol] 6.4 10*3/uL 1.8-7.7 [facility] Neutrophils/100 WBC Auto (Bl d)Ordered By: Gabriel Qiu on 12-11-2021 Neutrophils/100 WBC (Bld) 71.3 % . [facility] No Panel InformationOrdered By: Gabriel Qiu on 12-11-2021 Estimated GFR () > 60 mL/Min [facility] Comment on above: GFR estimated refere nce range: According to KDOQI guidelines, <60 ml/min/1.73m2 is sufficient to diagnose a patient with chronic kidney disease. Pharmacy Creatinine Clearance (Chem N/A [facility] Platelet mean volume Auto (B ld) [Entitic vol]Ordered By: Gabriel Qiu on 12-11-2021 Platelet mean volume (Bld) [Entitic vol] 9.5 fL 6.3-10.7 [facility] Platelets Auto (Bld) [#/Vol] Ordered By: Gabriel Qiu on 12-11-2021 Platelets (Bld) [#/Vol] 245 10*3/uL 150-450 [facility] RBC Auto (Bld) [#/Vol]Ordere d By: Gabriel Qiu on 12-11-2021 RBC (Bld) [#/Vol] 5.05 10*6/uL 3.60-5.00 [facility] Serum or plasma calcium malcom urement (mass/volume)Ordered By: Gabriel Qiu on 12-11-2021 Calcium [Mass/Vol] 9.7 mg/dL 8.2-10.2 [facility] Serum or plasma chloride andreea surement (moles/volume)Ordered By: Gabriel Qiu on 12-11-2021 Chloride [Moles/Vol] 104 mmol/L 95-114 [facility] Serum or plasma glucose malcom urement (mass/volume)Ordered By: Gabriel Qiu on 12-11-2021 Glucose [Mass/Vol] 81 mg/dL 70-100 [facility] Comment on above: ADA recommended refe rence range Random Glucose Reference Range is dependent on time and content of last meal. Glucose of more than 200 mg/dL in a nonstressed, ambulatory subject supports the diagnosis of Diabetes Mellitus. Serum or plasma potassium me asurement (moles/volume)Ordered By: Gabriel Qiu on 12-11-2021 Potassium [Moles/Vol] 4.1 mmol/L 3.5-5.1 [facility] Serum or plasma sodium measu rement (moles/volume)Ordered By: Gabriel Qiu on 12-11-2021 Sodium [Moles/Vol] 138 mmol/L 136-146 [facility] Serum or plasma total carbon dioxide measurement (moles/volume)Ordered By: Gabriel Qiu on 12-11-2021 CO2 [Moles/Vol] 26.9 mmol/L 22.0-30.0 [facility] Serum or plasma urea nitroge n measurement (mass/volume)Ordered By: Gabriel Qiu on 12-11-2021 Urea nitrogen [Mass/Vol] 7 mg/dL 9-23 [facility] COVID-19 Antigenon 2 COVID-19 Antigen [facility] [...] developed and its performance characteristic determined by [employer] and validated at [facility]. This test has not been FDA [...] for SARS Antigen by [facility] PERFORMED BY: [place] [address] PATHOLOGIST VOCATIONAL REHABILITATION SPECIALIST JOSUÉ LEE M.D. Normal [facility] Comment on above: Performed By: #### C OVID-19 LE, SOFIANEG #### [facility] [address] [place] [address] COVID-19 SOFIAOrdered By: Ruben Ziegler on 11-03-2021 SARS-CoV+SARS-CoV-2 (COVID-19) Ag IA.rapid Ql (Resp) Negative Negative [facility] Comment on above: This is a duplicate Le SARS Antigen (MARITZA) result to be used for statistical tracking purpose only. No Panel InformationOrdered By: Gume Ziegler on 11-03-2021 SARS Antigen (LFIA) [facility] Le Ag Negativeon 11-04-19 Le Ag Negative Negative Normal Negative [facility] Comment on above: Result Comment: This is a duplicate Le SARS Antigen (MARITZA) result to be used for statistical tracking purpose only. PERFORMED BY: [place] [address] PATHOLOGIST VOCATIONAL REHABILITATION SPECIALIST JOSUÉ LEE M.D. Performed By: #### C OVID-19 LE, SOFIANEG #### [facility] [address] [place], [place] [id number] [place] [facility] MG MAMM SCREEN 3D TERESA CADon 10-27-2021 MG MAMM SCREEN 3D TERESA CAD Patient: CYDNEY VILLA Exam Date: 10/27/2021 : 1950 Gender:F Ordering : SHAIKH Denise RAMIREZ . Admission #: [id number] Family : Order #: [id number] CLICK HERE TO VIEW EXAM RADIOLOGY REPORT [...] Treatments None Family Cancers None LOCATION: [facility] BREAST COMPOSITION: Scattered areas fibroglandular [...] MD on 10/27/2021 at 14:13 Approved by: Guem Phillips MD on 10/27/2021 at 14:15 Normal [facility] [place] [facility] CBC AUTO DIFFon 10-13-2021 BASO # 0.0 103/ul Normal 0.0-0.1 [facility] Comment on above: Performed By: #### C BC #### [facility] [place] [facility] [address] [place] [address] Dr. Josef Fraire Basophils/100 WBC (Bld) 0.5 % Normal 0.2-2.0 [facility] [place] [facility] Comment on above: Performed By: #### C BC #### [facility] [place] [facility] [address] [address] [address] Josef Fraire EO # 0.2 103/ul Normal 0.0-0.7 [facility] [place] [facility] Comment on above: Performed By: #### C BC #### [facility] [place] [facility] [address] [place] [address] Dr. Josef Fraire Eosinophils/100 WBC (Bld) 2.4 % Normal 0.9-7.0 [facility] Comment on above: Performed By: #### C BC #### [facility] [place] [facility] [address] [place] [address] Dr. Josef Fraire Erythrocyte distribution width (RBC) [Ratio] 13.9 % Normal 11.0-15.0 [facility] Comment on above: Performed By: #### C BC #### [facility] [place] [facility] [address] [place] [address] Dr. Josef Fraire Hematocrit (Bld) [Volume fraction] 44.7 % Normal 36.0-48.0 [facility] Comment on above: Performed By: #### C BC #### [facility] [place] [facility] [address] [place] [address] Dr. Josef Fraire Hemoglobin (Bld) [Mass/Vol] 14.4 g/dL Normal 12.0-16.0 [facility] Comment on above: Performed By: #### C BC #### [facility] [place] [facility] [address] [place] [address] Dr. Josef Fraire IG # 0.03 10e3/ul Normal 0.00-0.03 [facility] Comment on above: Performed By: #### C BC #### [facility] [place] [facility] [address] [place] [address] Dr. Josef Fraire IG % 0.4 % Normal 0.0-0.5 [facility] Comment on above: Performed By: #### C BC #### [facility] [place] [facility] [address] [place] [address] Dr. Josef Fraire LYMPH # 2.0 103/ul Normal 1.2-3.8 [facility] [place] [facility] Comment on above: Performed By: #### C BC #### [facility] [place] [facility] [address] [place] [address] Dr. Josef Fraire Lymphocytes/100 WBC (Bld) 25.1 % Normal 20.5-60.0 [facility] Comment on above: Performed By: #### C BC #### [facility] [place] [facility] [address] [place] [address] Dr. Josef Fraire MANUAL DIFF REQ NO Normal [facility] Comment on above: Performed By: #### C BC #### [facility] [place] [facility] [address] [place] [address] Dr. Josef Fraire MCH (RBC) [Entitic mass] 29.9 pg Normal 26.7-34.0 [facility] [place] [facility] Comment on above: Performed By: #### C BC #### [facility] [place] [facility] [address] [place] [address] Dr. Josef Fraire MCHC (RBC) [Mass/Vol] 32.2 g/dL Normal 29.9-35.2 [facility] [place] [facility] Comment on above: Performed By: #### C BC #### [facility] [place] [facility] [address] [place] [address] Dr. Josef Fraire MCV (RBC) [Entitic vol] 92.7 fL Normal 81.0-99.0 [facility] Comment on above: Performed By: #### C BC #### [facility] [place] [facility] [address] [place] [address] Dr. Josef Fraire MONO # 0.5 103/ul Normal 0.3-0.8 [facility] Comment on above: Performed By: #### C BC #### [facility] [place] [facility] [address] [place] [address] Dr. Josef Fraire Monocytes/100 WBC (Bld) 6.6 % Normal 1.7-12.0 [facility] [place] [facility] Comment on above: Performed By: #### C BC #### [facility] [place] [facility] [address] [place] [address] Dr. Josef Fraire NEUT # 5.1 103/ul Normal 1.4-6.5 [facility] [place] [facility] Comment on above: Performed By: #### C BC #### [facility] [place] [facility] [address] [place] [address] Dr. Josef Fraire Neutrophils/100 WBC (Bld) 65.0 % Normal 43.0-75.0 [facility] [place] [facility] Comment on above: Performed By: #### C BC #### [facility] [place] [facility] [address] [place] [address] Dr. Josef Fraire Platelet mean volume (Bld) [Entitic vol] 11.9 fL Normal 9.5-13.5 [facility] [place] [facility] Comment on above: Performed By: #### C BC #### [facility] [place] [facility] [address] [place] [address] Dr. Josef Fraire PLT 217 103/ul Normal 150-450 [facility] Comment on above: Performed By: #### C BC #### [facility] [place] [facility] [address] [place] [address] Dr. Josef Fraire RBC 4.82 106/ul Normal 4.20-5.40 [facility] Comment on above: Performed By: #### C BC #### [facility] [place] [facility] [address] [place] [address] Dr. Josef Fraire WBC 7.9 103/ul Normal 4.0-11.0 [facility] Comment on above: Performed By: #### C BC #### [facility] [place] [facility] [address] [place] [address] Dr. Josef Fraire FERRITINon 10-13-2021 Ferritin [Mass/Vol] 56.0 ng/mL Normal 8.0-252.0 [facility] Comment on above: Performed By: #### F ERR #### [facility] [place] [facility] [address] [place] [address] Dr. Josef Fraire LIPID PROFILEon 10-13-2021 CHOL-HDL RATIO NORM SEE BELOW Normal [facility] Comment on above: Result Comment: 3.3 - 4.4 LOW RISK 4.4 - 7.1 AVERAGE RISK 7.1 - 11.0 MODERATE RISK >11.0 HIGH RISK Performed By: #### L IPID, CMP #### [facility] [place] [facility] [address] [place] [address] Dr. Josef Fraire Cholesterol [Mass/Vol] 156 mg/dL Normal <=200 [facility] Comment on above: Performed By: #### L IPID, CMP #### [facility] [place] [facility] [address] [place] [address] Dr. Josef Fraire Cholesterol in HDL [Mass/Vol] 53 mg/dL Normal 40-60 [facility] Comment on above: Performed By: #### L IPID, CMP #### [facility] [place] [facility] [address] [place] [address] Dr. Josef Fraire Cholesterol in LDL [Mass/Vol] 85.0 mg/dL Normal [facility] Comment on above: Performed By: #### L IPID, CMP #### [facility] [place] [facility] [address] [address] [address] Josef Fraire Cholesterol.total/Chol esterol in HDL [Mass ratio] 2.9 {ratio} Normal [facility] Comment on above: Performed By: #### L IPID, CMP #### [facility] [place] [facility] [address] [place] [address] Dr. Josef Fraire HDL NORMAL > or = 60 mg/dl - LO W CARDIOVASCULAR RISK <40 mg/dl - HIGH CARDIOVASCULAR RISK Normal [facility] Comment on above: Performed By: #### L IPID, CMP #### [facility] [place] [facility] [address] [address] [address] Josef Fraire LDL CALC NORMAL SEE BELOW Normal [facility] Comment on above: Result Comment: <100 mg/dl OPTIMAL 100 - 129 mg/dl NEAR OR ABOVE OPTIMAL 130 - 159 mg/dl BORDERLINE HIGH 160 - 189 mg/dl HIGH >190 mg/dl VERY HIGH Performed By: #### L IPID, CMP #### [facility] [place] [facility] [address] [place] [address] Dr. Josef Fraire Triglyceride [Mass/Vol] 90 mg/dL Normal <=150 [facility] Comment on above: Performed By: #### L IPID, CMP #### [facility] [place] [facility] [address] [place] [address] Dr. Josef Fraire VLDL CALC 18.0 mg/dL Normal [facility] Comment on above: Performed By: #### L IPID, CMP #### [facility] [place] [facility] [address] [address] [address] Josef Fraire PROF 14(COMP METB)on 022 Albumin [Mass/Vol] 3.5 g/dL Normal 3.4-5.0 [facility] Comment on above: Performed By: #### L IPID, CMP #### [facility] [place] [facility] [address] [place] [address] Dr. Josef Fraire Albumin/Globulin [Mass ratio] 1.0 {ratio} Normal [facility] Comment on above: Performed By: #### L IPID, CMP #### [facility] [place] [facility] [address] [address] [address] Josef Fraire ALP [Catalytic activity/Vol] 90 U/L Normal 46-116 [facility] Comment on above: Performed By: #### L IPID, CMP #### [facility] [place] [facility] [address] [address] [address] Josef Fraire ALT [Catalytic activity/Vol] 25 U/L Normal 14-59 [facility] Comment on above: Performed By: #### L IPID, CMP #### [facility] [place] [facility] [address] [address] [address] Josef Fraire Anion gap [Moles/Vol] 9.0 mmol/L Normal [facility] Comment on above: Performed By: #### L IPID, CMP #### [facility] [place] [facility] [address] [place] [address] Dr. Josef Fraire AST [Catalytic activity/Vol] 17 U/L Normal 15-37 [facility] Comment on above: Performed By: #### L IPID, CMP #### [facility] [place] [facility] [address] [address] [address] Josef Fraire Bilirubin [Mass/Vol] 0.4 mg/dL Normal 0.2-1.0 [facility] Comment on above: Performed By: #### L IPID, CMP #### [facility] [place] [facility] [address] [address] [address] Josef Fraire Calcium [Mass/Vol] 9.1 mg/dL Normal 8.5-10.1 [facility] Comment on above: Performed By: #### L IPID, CMP #### [facility] [place] [facility] [address] [address] [address] Josef Fraire Chloride [Moles/Vol] 105 mmol/L Normal 98-107 [facility] [place] [facility] Comment on above: Performed By: #### L IPID, CMP #### [facility] [place] [facility] [address] [address] [address] Josef Fraire CO2 [Moles/Vol] 27.9 mmol/L Normal 21.0-32.0 [facility] Comment on above: Performed By: #### L IPID, CMP #### [facility] [place] [facility] [address] [address] [address] Josef Fraire Creatinine [Mass/Vol] 0.78 mg/dL Normal 0.55-1.02 [facility] Comment on above: Performed By: #### L IPID, CMP #### [facility] [address] [address] [address] Josef Fraire EGFR-AF GAMBIAN >60 Normal >=60 [facility] Comment on above: Performed By: #### L IPID, CMP #### [facility] [place] [facility] [address] [address] [address] Josef Fraire EGFR-NON AF GAMBIAN >60 Normal >=60 [facility] Comment on above: Performed By: #### L IPID, CMP #### [facility] [place] [facility] [address] [address] [address] Josef Fraire Globulin (S) [Mass/Vol] 3.5 g/dL Normal [facility] Comment on above: Performed By: #### L IPID, CMP #### [facility] [place] [facility] [address] [address] [address] Josef Fraire Glucose [Mass/Vol] 89 mg/dL Normal 74-106 [facility] Comment on above: Performed By: #### L IPID, CMP #### [facility] [place] [facility] [address] [address] [address] Josef Fraire Potassium [Moles/Vol] 4.3 mmol/L Normal 3.5-5.1 [facility] Comment on above: Performed By: #### L IPID, CMP #### [facility] [address] [address] [address] Josef Fraire Protein [Mass/Vol] 7.0 g/dL Normal 6.4-8.2 [facility] Comment on above: Performed By: #### L IPID, CMP #### [facility] [address] [address] [address] Josef Fraire Sodium [Moles/Vol] 140 mmol/L Normal 136-145 [facility] Comment on above: Performed By: #### L IPID, CMP #### [facility] [address] [address] [address] Josef Fraire Urea nitrogen [Mass/Vol] 8.0 mg/dL Normal 7.0-18.0 [facility] Comment on above: Performed By: #### L IPID, CMP #### [facility] [place] [facility] [address] [place], [place] [address] Dr. Josef Fraire Urea nitrogen/Creatinine [Mass ratio] 10.2 mg/mg Normal [facility] Comment on above: Performed By: #### L IPID, CMP #### [facility] [place] [facility] [address] [address] [address] Josef Fraire Vital Signs Date Time Vital Sign Value Performing Clinician Facility 06-04-2024 09:16-0500 Body height 157.5 cm Sonu Landistrick DIETITIAN Work Phone: [facility] 06-04-2024 09:16-0500 Body mass index (BMI) [Ratio] 25.83 kg/m2 Sonu Connelly DIETITIAN Work Phone: [facility] 06-04-2024 09:16-0500 Body temperature 97.2 [degF] Sonu Goodmanpatrick DIETITIAN Work Phone: [facility] 06-04-2024 09:16-0500 Body weight 64.05 kg Sonu Connelly DIETITIAN Work Phone: [facility] 06-04-2024 09:16-0500 Diastolic blood pressure 68 mm[Hg] Sonu Connelly DIETITIAN Work Phone: [facility] 06-04-2024 09:16-0500 Heart rate 84 /min Sonu Connelly DIETITIAN Work Phone: [facility] 06-04-2024 09:16-0500 Respiratory rate 16 /min Sonu Connelly DIETITIAN Work Phone: [facility] 06-04-2024 09:16-0500 SaO2% (BldA) [Mass fraction] 96 % Sonu Connelly DIETITIAN Work Phone: [facility] 06-04-2024 09:16-0500 Systolic blood pressure 112 mm[Hg] Sonu Connelly DIETITIAN Work Phone: [facility] 02-21-2024 09:17-0400 Body height 157.5 cm Sonu Connelly DIETITIAN Work Phone: [facility] 02-21-2024 09:17-0400 Body mass index (BMI) [Ratio] 25.61 kg/m2 Sonu Connelly DIETITIAN Work Phone: [facility] 02-21-2024 09:17-0400 Body temperature 98.01 [degF] Sonu Connelly DIETITIAN Work Phone: [facility] 02-21-2024 09:17-0400 Body weight 63.5 kg Sonu Connelly DIETITIAN Work Phone: [facility] 02-21-2024 09:17-0400 Diastolic blood pressure 60 mm[Hg] Sonu Connelly DIETITIAN Work Phone: [facility] 02-21-2024 09:17-0400 Heart rate 60 /min Sonu Connelly DIETITIAN Work Phone: [facility] 02-21-2024 09:17-0400 Systolic blood pressure 110 mm[Hg] Sonu Connelly DIETITIAN Work Phone: [facility] 01-09-2024 07:56-0400 Body height 157.5 cm Richardson Rincon MANAGER [employer] Work Phone: [facility] 01-09-2024 07:56-0400 Body mass index (BMI) [Ratio] 26.16 kg/m2 Richardson Rincon MANAGER [employer] Work Phone: [facility] 01-09-2024 07:56-0400 Body weight 64.86 kg Richardson Rincon MANAGER [employer] Work Phone: [facility] 01-09-2024 07:56-0400 Diastolic blood pressure 66 mm[Hg] Richardson Rincon MANAGER [employer] Work Phone: [facility] 01-09-2024 07:56-0400 Heart rate 72 /min Richardson Rincon MANAGER [employer] Work Phone: [facility] 01-09-2024 07:56-0400 Systolic blood pressure 124 mm[Hg] Richardson Rincon MANAGER [employer] Work Phone: [facility] 07-11-2023 12:38-0500 Body height 157.5 cm Jolly Smith MD Work Phone: [facility] 07-11-2023 12:38-0500 Body mass index (BMI) [Ratio] 25.97 kg/m2 Jolly Smith MD Work Phone: [facility] 07-11-2023 12:38-0500 Body weight 64.41 kg Jolly Smith MD Work Phone: [facility] 07-11-2023 12:38-0500 Diastolic blood pressure 76 mm[Hg] Jolly Smith MD Work Phone: [facility] 07-11-2023 12:38-0500 Heart rate 60 /min Jolly Smith MD Work Phone: [facility] 07-11-2023 12:38-0500 Systolic blood pressure 124 mm[Hg] Jolly Smith MD Work Phone: [facility] 06-23-2023 11:39-0500 Diastolic blood pressure 72 mm[Hg] Jolly Smith MD Work Phone: [facility] 06-23-2023 11:39-0500 Systolic blood pressure 110 mm[Hg] Jolly Smith MD Work Phone: [facility] 06-23-2023 10:49-0500 Heart rate 64 /min Jolly Smith MD Work Phone: [facility] 06-23-2023 10:48-0500 Body height 157.5 cm Jolly Smith MD Work Phone: [facility] 06-23-2023 10:48-0500 Body mass index (BMI) [Ratio] 26.34 kg/m2 Jolly Smith MD Work Phone: [facility] 06-23-2023 10:48-0500 Body weight 65.32 kg Jolly Smith MD Work Phone: [facility] 11-22-2022 09:10-0400 Body height 160.02 cm Gracia Woodruff Other [employer] Other 11-22-2022 09:10-0400 Body mass index (BMI) [Ratio] 25.98 kg/m2 Gracia Woodruff Other [facility] Other 11-22-2022 09:10-0400 Body temperature 97.8 [degF] Gracia Woodruff Other [facility] Other 11-22-2022 09:10-0400 Body weight 66.54 kg Gracia Woodruff Other [facility] Other 11-22-2022 09:10-0400 Diastolic blood pressure 56 mm[Hg] Gracia Woodruff Other [facility] Other 11-22-2022 09:10-0400 Respiratory rate 18 /min Gracia Woodruff Other [facility] Other 11-22-2022 09:10-0400 SaO2% (BldA) [Mass fraction] 95 % Gracia Woodruff Other [facility] Other 11-22-2022 09:10-0400 Systolic blood pressure 148 mm[Hg] Gracia Woodruff Other [facility] [employer] Other 12-23-2021 14:20-0400 Diastolic blood pressure 64 mm[Hg] DO Gume Hykes Work Phone: [facility] 12-23-2021 14:20-0400 Heart rate 71 /min DO Gume Hykes Work Phone: [facility] 12-23-2021 14:20-0400 Respiratory rate 16 /min DO Gume Hykes Work Phone: [facility] 12-23-2021 14:20-0400 SaO2% (BldA) [Mass fraction] 96 % DO Gume Hykes Work Phone: [facility] 12-23-2021 14:20-0400 Systolic blood pressure 122 mm[Hg] DO Gume Hykes Work Phone: [facility] 12-23-2021 12:12-0400 Body height 157.48 cm DO Gume Hykes Work Phone: [facility] 12-23-2021 12:12-0400 Body mass index (BMI) [Ratio] 27 kg/m2 DO Gume Hykes Work Phone: [facility] 12-23-2021 12:12-0400 Body weight 67 kg DO Gume Hykes Work Phone: [facility] 12-23-2021 11:11-0400 Body temperature 97.9 [degF] DO Gume Hykes Work Phone: [facility] 11-05-2021 13:50-0400 Diastolic blood pressure 64 mm[Hg] DO Gume Hykes Work Phone: [facility] 11-05-2021 13:50-0400 Heart rate 77 /min DO Gume Hykes Work Phone: [facility] 11-05-2021 13:50-0400 Respiratory rate 16 /min DO Gume Hykes Work Phone: [facility] 11-05-2021 13:50-0400 SaO2% (BldA) [Mass fraction] 97 % DO Gume Ziegler Work Phone: [facility] 11-05-2021 13:50-0400 Systolic blood pressure 118 mm[Hg] DO Gume Ziegler Work Phone: [facility] 11-05-2021 12:49-0400 Body height 160.02 cm DO Gume Ziegler Work Phone: [facility] 11-05-2021 12:49-0400 Body mass index (BMI) [Ratio] 25.3 kg/m2 DO Gume Ziegler Work Phone: [facility] 11-05-2021 12:49-0400 Body temperature 98.2 [degF] DO Gume Ziegler Work Phone: [facility] 11-05-2021 12:49-0400 Body weight 64.86 kg DO Gume Ziegler Work Phone: [facility] 05-06-2021 10:45-0500 Body height 160.02 cm Dede Carte Bl[place] Other [employer] [facility] [employer] Other 05-06-2021 10:45-0500 Body mass index (BMI) [Ratio] 25.74 kg/m2 Dede Carte Blancheey Other [facility] Other 05-06-2021 10:45-0500 Body weight 65.91 kg Dede Calvey Other [facility] Other 04-08-2021 15:15-0500 Body height 160.02 cm Dede Calvrene Other [employer] Other 04-08-2021 15:15-0500 Body mass index (BMI) [Ratio] 25.33 kg/m2 Dede Calvey Other [facility] Other 04-08-2021 15:15-0500 Body weight 64.86 kg Dede Garcia Other [facility] Other Encounters Encounter Date Encounter Type Care Provider Facility Start: 06-12-2024 End: 06-12-2024 Clinisync Result Encounter Sonu Connelly DIETITIAN Work Phone: [facility] Unsolicited Start: 06-12-2024 End: 06-12-2024 Clinisync Result Encounter Sonurodger GoodmanConnelly DIETITIAN Work Phone: [facility] Unsolicited Start: 06-12-2024 End: 06-12-2024 Orders Only Sonu Connelly DIETITIAN Work Phone: [facility] Comment on above: Abnormal laboratory test result (Primary Dx) Start: 06-04-2024 End: 06-04-2024 Bamboo flowsheet Sonu Connelly DIETITIAN Work Phone: [facility] Start: 06-04-2024 End: 06-04-2024 Bamboo flowsheet Sonu Connelly DIETITIAN Work Phone: [facility] Start: 06-04-2024 End: 06-04-2024 Office outpatient visit 15 minutes Sonu Connelly DIETITIAN Work Phone: [facility] Comment on [...] breast Start: 06-04-2024 End: 06-04-2024 ambulatory SONU CONNELLY Not Available Start: 03-14-2024 End: 03-14-2024 Refill Sonu Goodmanpatrick DIETITIAN Work Phone: [facility] Comment on above: Seasonal allergic rh initis due to other allergic trigger (Primary Dx); Other emphysema (CMS/HCC) Start: 02-21-2024 End: 02-21-2024 Bamboo flowsheet Sonu Goodmanpatrick DIETITIAN Work Phone: [facility] Start: 02-21-2024 End: 02-21-2024 Bamboo flowsheet Sonu Naiduzpatrick DIETITIAN Work Phone: [facility] Start: 02-21-2024 End: 02-21-2024 Office outpatient visit 15 minutes Sonu Connelly DIETITIAN Work Phone: [facility] Comment on above: Primary hypertension (CMS/HCC) (Primary Dx); Age-related osteoporosis without current pathological fracture (CMS/HCC); Gastroesophageal reflux disease without esophagitis; Chronic epigastric pain; Cigarette nicotine dependence without complication; Other emphysema (CMS/HCC); Mixed hyperlipidemia (CMS/HCC) Start: 02-21-2024 End: 02-21-2024 ambulatory SONU CONNELLY Not Available Start: 01-09-2024 End: 01-09-2024 Office outpatient visit 15 minutes Richardson Rincon MANAGER [employer] Work Phone: [facility] Comment on above: manager terminal current us e of anticoagulant therapy (Primary Dx); Atrial fibrillation, unspecified type (Multi); Paroxysmal atrial 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 (Multi); Primary hypertension; Mixed hyperlipidemia; Current every day smoker Start: 01-09-2024 End: 01-09-2024 ambulatory [facility] Start: 09-27-2023 End: 09-27-2023 ambulatory SHAIKH ASHLEY Not Available Start: 07-14-2023 Clinisync Result Encounter Generic External Data Provider [facility] Unsolicited Start: 07-14-2023 Clinisync Result Encounter Generic External Data Provider [facility] Unsolicited Start: 07-11-2023 End: 07-11-2023 Office outpatient visit 25 minutes Jolly Smith MD Work Phone: [facility] Comment on above: manager terminal current us e of anticoagulant therapy (Primary Dx); Atrial fibrillation, unspecified type (CMS/HCC); Gastroesophageal reflux disease, unspecified whether esophagitis present; Paroxysmal atrial 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 (CMS/HCC); Primary hypertension; Mixed hyperlipidemia; Hypercoagulable state due to 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 (CMS/HCC); Current every day smoker; Encounter to discuss test results Start: 07-11-2023 End: 07-11-2023 ambulatory [facility] Start: 07-07-2023 End: 07-07-2023 Subsequent hospital visit by physician Florencia Cordero [facility] Start: 07-07-2023 End: 07-07-2023 ambulatory [facility] Start: 06-29-2023 End: 06-29-2023 ambulatory SHAIKH ASHLEY Not Available Start: 06-23-2023 End: 06-23-2023 Office outpatient new 45 minutes Jolly Smith MD Work Phone: [facility] Comment on above: Atrial fibrillation, unspecified type (CMS/HCC); Current every day smoker; Gastroesophageal reflux disease, unspecified whether esophagitis present; Hypercoagulable state due to 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 (CMS/HCC); manager terminal current use of anticoagulant therapy; Hyperlipidemia, unspecified hyperlipidemia type; Chest pain, unspecified type; Primary hypertension; Paroxysmal atrial 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 (CMS/HCC) Start: 06-23-2023 End: 06-23-2023 ambulatory [facility] Start: 05-17-2023 Patient encounter procedure Generic Provider [facility] Start: 11-22-2022 End: 11-22-2022 ambulatory Gracia Woodruff Other [facility] Other Start: 11-22-2022 Office outpatient vi sit 15 minutes Gracia Woodruff [facility] Start: 09-13-2022 ambulatory Facility:Paulie Keen Start: 04-07-2022 End: 04-08-2022 ambulatory SHAIKH Erika RAMIREZ Facility:[facility]1 Start: 01-28-2022 End: 01-28-[address] YORDAN BAÑUELOS Facility:[facility] Start: 01-27-2022 End: 01-28-2022 ambulatory SHAIKH Erika RAMIREZ Facility:[facility]1 Start: 01-18-2022 End: 01-19-2022 ambulatory SHAIKH Erika VUONGD Facility:[facility]1 Start: 12-23-2021 End: 12-23-2021 ambulatory Shaikh Janeed Facility:[facility] Start: 12-23-2021 End: 12-23-2021 Admission to same day surgery center DO Gume Ziegler Work Phone: [facility] [place] Start: 12-21-2021 End: 12-21-2021 ambulatory Shaikh Ashley Facility:[facility] Start: 12-21-2021 End: 12-21-2021 Patient encounter procedure DO Gume Ziegler Work Phone: [facility]Def[facility]Iwx[facility] Testing Start: 12-11-2021 End: 12-11-2021 ambulatory Shaikh Ashley Facility:[facility] Start: 12-11-2021 End: 12-11-2021 Patient encounter procedure DO Gume Ziegler Work Phone: [facility] Yhy-Kkw-Cmzesnuc Testing Start: 12-09-2021 End: 12-09-2021 ambulatory Gume Ziegler Other [facility] Other Start: 12-09-2021 Telephone encounter Gume Ziegler [facility] Start: 11-27-2021 End: 11-27-2021 ambulatory Gume Ziegler Other [facility] Other Start: 11-27-2021 Telephone encounter Gume Ziegler [facility] Start: 11-09-2021 End: 11-09-2021 ambulatory Gume Ziegler Other [facility] Other Start: 11-09-2021 Telephone encounter Gume Ziegler [facility] Start: 11-05-2021 End: 11-05-2021 ambulatory Gume Ziegler Facility:[facility] Start: 11-05-2021 End: 11-05-2021 Admission to same day surgery center DO Gume Ziegler Work Phone: [facility] Start: 11-03-2021 End: 11-03-2021 ambulatory Gume Ziegler Facility:[facility] Start: 11-03-2021 End: 11-03-2021 Patient encounter procedure DO Gume Ziegler Work Phone: [facility] Start: 10-28-2021 End: 10-28-2021 ambulatory Gume Ziegler Other [facility] Other Start: 10-28-[address] [facility] Start: 10-27-2021 End: 10-28-2021 ambulatory ROONEY H FAWWAD Facility:[facility]1 Start: 10-13-2021 End: 10-14-2021 ambulatory ROONEY H FAWWAD Facility:[facility] Start: 05-06-2021 End: 05-06-2021 ambulatory Dede Garcia Other [facility] Other Start: 05-06-2021 Office outpatient vi sit 10 minutes Dedearturo Garcia [facility] Start: 04-14-2021 End: 04-14-2021 ambulatory Jaime Paulino Other [facility] Other Start: 04-14-2021 Telephone encounter Jaime Paul[facility] Start: 04-08-2021 End: 04-08-2021 ambulatory Dede Garcia Other [facility] Other Start: 04-08-2021 Office outpatient vi sit 15 minutes Dede Calvey [facility] Start: 03-11-2021 Office outpatient vi sit 15 minutes Dede Calvey [facility] Procedures Date Procedure Procedure Detail Performing Clinician Start: 06-12-2024 Laboratory test result abnormal Abnormal laboratory test result Sonu Connelly DIETITIAN Work Phone: Start: 06-12-2024 ALL CBC WITH AUTO DIFF Sonu Olmos ick DIETITIAN Work Phone: Start: 07-14-2023 ALL CBC WITH AUTO DIFF Generic External Data Provider Start: 07-11-2023 FOLLOW UP IN CARDIOLOGY JOLLY SMITH Start: 07-07-2023 NUCLEAR STRESS TEST JOLLY SMITH Start: 07-07-2023 Cv strs tst xers&/or rx cont ecg trcg only Jolly Smith MD Work Phone: Start: 06-23-2023 CBC panel - Blood by Automated count JOLLY SMITH Start: 06-23-2023 Comprehensive metabolic 2000 panel - Serum or Plasma JOLLY SMITH Start: 06-23-2023 Lipid panel JOLLY SMITH Start: 06-23-2023 Thyrotropin [Units/volume] in Serum or Plasma JOLLY SMITH Start: 06-23-2023 THYROXINE, FREE JOLLY SMITH Start: 06-23-2023 TRIIODOTHYRONINE, TOTAL JOLLY SMITH Start: 06-23-2023 ECG 12-LEAD JOLLY SMITH Start: 06-23-2023 Ecg routine ecg w/least 12 lds w/i&r Jolly Smith MD Work Phone: Start: 01-28-2023 Mammography Generic Provider Start: 12-23-2021 Hemorrhoidectomy DO Gume Toney Work Phone: Start: 11-05-2021 Diagnostic endoscopic examination on colon DO Gume Geoffphilippe Work Phone: Start: 11-02-2021 Colonoscopy Generic Provider SARS Antigen (LFIA) DO Gume Geoffphilippe Work Phone: Plan of Treatment Date Care Activity Detail Author Start: 11-03-2031 Screening for malign ant neoplasm of colon [facility] Start: 08-29-2031 DTaP/Tdap/Td Vaccine s (2 - Td or Tdap) DTaP/Tdap/Td Vaccines (2 - Td or Tdap) [facility] Start: 09-03-2024 End: 09-03-2024 Patient encounter procedure 09/03/2024 9:30 AM EDT Office Visit [facility] [address] [place] [address] Sonu Connelly NP [address] [place] [address] [facility] Start: 07-19-2024 End: 07-19-2024 Patient encounter procedure [facility] Start: 07-11-2024 End: 01-08-2025 CBC panel - Blood by Automated count CBC Lab Routine Atrial fibrillation, unspecified type (Multi) snf current use of anticoagulant therapy Expected: 07/11/2024 (Approximate), Expires: 01/08/2025 [facility] Work Phone: Comment on above: Expected: 07/11/2024 (Approximate), Expires: 01/08/2025 Start: 07-11-2024 End: 01-08-2025 Comprehensive metabolic 2000 panel - Serum or Plasma Comprehensive Metabolic Panel Lab Routine Atrial fibrillation, unspecified type (Multi) snf current use of anticoagulant therapy Expected: 07/11/2024 (Approximate), Expires: 01/08/2025 [facility] Service Area Work Phone: Comment on above: Expected: 07/11/2024 (Approximate), Expires: 01/08/2025 Start: 07-11-2024 End: 01-08-2025 Lipid 1996 panel - Serum or Plasma Lipid Panel Lab Routine Atrial fibrillation, unspecified type (Multi) Mixed hyperlipidemia Expected: 07/11/2024 (Approximate), Expires: 01/08/2025 [facility] Work Phone: Comment on above: Expected: 07/11/2024 (Approximate), Expires: 01/08/2025 Start: 06-19-2024 End: 06-12-2025 Comprehensive metabolic 2000 panel - Serum or Plasma Comprehensive metabolic panel Lab Routine Abnormal laboratory test result Expected: 06/19/2024 (Approximate), Expires: 06/12/2025 [facility] Work Phone: Comment on above: Expected: 06/19/2024 (Approximate), Expires: 06/12/2025 Start: 06-04-2024 End: 06-04-2025 CBC W Auto Differential panel - Blood CBC and differential Lab Routine Primary hypertension (CMS/HCC) Expected: 06/04/2024 (Approximate), Expires: 06/04/2025 [facility] Comment on above: Expected: 06/04/2024 (Approximate), Expires: 06/04/2025 Start: 06-04-2024 End: 06-04-2025 Comprehensive metabolic 2000 panel - Serum or Plasma Comprehensive metabolic panel Lab Routine Primary hypertension (CMS/HCC) Expected: 06/04/2024 (Approximate), Expires: 06/04/2025 [facility] Comment on above: Expected: 06/04/2024 (Approximate), Expires: 06/04/2025 Start: 06-04-2024 End: 06-04-2025 Lipid 1996 panel - Serum or Plasma Lipid panel Lab Routine Mixed hyperlipidemia (CMS/HCC) Expected: 06/04/2024 (Approximate), Expires: 06/04/2025 [facility] Comment on above: Expected: 06/04/2024 (Approximate), Expires: 06/04/2025 Start: 06-04-2024 End: 08-02-2025 MG Breast - bilateral Screening Bilateral screening mammogram Imaging Routine Encounter for screening mammogram for malignant neoplasm of breast Expected: 06/04/2024, Expires: 08/02/2025 [facility] Comment on above: Expected: 06/04/2024 , Expires: 08/02/2025 Start: 06-04-2024 End: 06-04-2025 Microalbumin/Creatinine panel in random Urine Microalbumin / creatinine urine ratio Lab Routine Primary hypertension (CMS/HCC) Expected: 06/04/2024 (Approximate), Expires: 06/04/2025 [facility] Work Phone: Comment on above: Expected: 06/04/2024 (Approximate), Expires: 06/04/2025 Start: 06-04-2024 End: 06-04-2024 Patient encounter procedure [facility] Comment on above: Arrived Start: 05-17-2024 Medicare Annual Well ness (AWV) Medicare Annual Wellness (AWV) [facility] Start: 02-21-2024 End: 02-21-2024 Patient encounter procedure 02/21/2024 9:30 AM EDT Office Visit [facility] [address] [place] [phone] Sonu Connelly NP [address] [place] [phone] Arrived [facility] Comment on above: Arrived Start: 01-29-2024 Influenza vaccination Influenza Vacc ine (#1) [facility] Start: 01-29-2024 Screening for malign ant neoplasm of breast Mammogram [facility] Start: 01-09-2024 End: 01-09-2024 Patient encounter procedure 01/09/2024 8:00 AM EDT Office Visit [facility] [address] [facility] [address] [place] [phone] Richardson Rincon, MANAGER HEAVY DUTY-PACK MULE WORKER [address] [facility] [address] [place] [address] [facility] Start: 09-27-2023 End: 09-27-2023 Patient encounter procedure 09/27/2023 9:15 AM EDT Office Visit [facility] [address] [place] [address] Shaikh Ramirez MD [address] [place] [id number] [facility] Start: 07-11-2023 End: 07-11-2024 CBC panel - Blood by Automated count CBC Lab Routine Atrial fibrillation, unspecified type (CMS/HCC) Primary hypertension Expected: 07/11/2023 (Approximate), Expires: 07/11/2024 [facility] Service Area Work Phone: Comment on above: Expected: 07/11/2023 (Approximate), Expires: 07/11/2024 Start: 07-11-2023 End: 07-11-2024 Comprehensive metabolic 2000 panel - Serum or Plasma Comprehensive Metabolic Panel Lab Routine Atrial fibrillation, unspecified type (CMS/HCC) Primary hypertension Expected: 07/11/2023 (Approximate), Expires: 07/11/2024 [facility] Work Phone: Comment on above: Expected: 07/11/2023 (Approximate), Expires: 07/11/2024 Start: 07-11-2023 End: 07-11-2024 Lipid 1996 panel - Serum or Plasma Lipid Panel Lab Routine Mixed hyperlipidemia Expected: 07/11/2023 (Approximate), Expires: 07/11/2024 [facility] Work Phone: Comment on above: Expected: 07/11/2023 (Approximate), Expires: 07/11/2024 Start: 07-11-2023 End: 07-11-2023 Patient encounter procedure 07/11/2023 12:30 PM EST Office Visit [facility] [address] [place] [address] [address] [place] [phone] Jolly Smith MD [address] [place] [address] [address] [place] [address] [facility] Start: 07-07-2023 End: 07-07-2023 Patient encounter procedure 07/07/2023 2:15 PM EST Appointment [facility] [address] [facility] [address] [place] [phone] [facility] Start: 07-07-2023 End: 07-07-2023 Patient encounter procedure [facility] Start: 06-23-2023 End: 06-23-2024 CBC panel - Blood by Automated count CBC Lab Routine Hyperlipidemia, unspecified hyperlipidemia type Chest pain, unspecified type Primary hypertension Paroxysmal atrial 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 (CMS/HCC) Expected: 06/23/2023 (Approximate), Expires: 06/23/2024 [facility] Work Phone: Comment on above: Expected: 06/23/2023 (Approximate), Expires: 06/23/2024 Start: 06-23-2023 End: 06-23-2024 Comprehensive metabolic 2000 panel - Serum or Plasma Comprehensive Metabolic Panel Lab Routine Hyperlipidemia, unspecified hyperlipidemia type Chest pain, unspecified type Primary hypertension Paroxysmal atrial 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 (CMS/HCC) Expected: 06/23/2023 (Approximate), Expires: 06/23/2024 [facility] Work Phone: Comment on above: Expected: 06/23/2023 (Approximate), Expires: 06/23/2024 Start: 06-23-2023 End: 06-23-2024 Lipid 1996 panel - Serum or Plasma Lipid Panel Lab Routine Hyperlipidemia, unspecified hyperlipidemia type Chest pain, unspecified type Primary hypertension Paroxysmal atrial 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 (CMS/HCC) Expected: 06/23/2023 (Approximate), Expires: 06/23/2024 [facility] Work Phone: Comment on above: Expected: 06/23/2023 (Approximate), Expires: 06/23/2024 Start: 06-23-2023 End: 06-23-2025 NM Heart Perfusion W stress and W radionuclide IV Nuclear Stress Test Cardiac Nuclear Medicine Routine Hypercoagulable state due to 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 (CMS/HCC) manager terminal current use of anticoagulant therapy Hyperlipidemia, unspecified hyperlipidemia type Chest pain, unspecified type Primary hypertension Paroxysmal atrial 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 (CMS/HCC) Expected: 06/23/2023 (Approximate), Expires: 06/23/2025 [facility] Service Area Work Phone: Comment on above: Expected: 06/23/2023 (Approximate), Expires: 06/23/2025 Start: 06-23-2023 End: 06-23-2024 Thyrotropin [Units/volume] in Serum or Plasma Thyroid Stimulating Hormone Lab Routine Hyperlipidemia, unspecified hyperlipidemia type Chest pain, unspecified type Primary hypertension Paroxysmal atrial 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 (CMS/HCC) Expected: 06/23/2023 (Approximate), Expires: 06/23/2024 [facility] Work Phone: Comment on above: Expected: 06/23/2023 (Approximate), Expires: 06/23/2024 Start: 06-23-2023 End: 06-23-2024 Thyroxine (T4) free [Mass/volume] in Serum or Plasma Thyroxine, Free Lab Routine Hyperlipidemia, unspecified hyperlipidemia type Chest pain, unspecified type Primary hypertension Paroxysmal atrial 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 (CMS/HCC) Expected: 06/23/2023 (Approximate), Expires: 06/23/2024 [facility] Work Phone: Comment on above: Expected: 06/23/2023 (Approximate), Expires: 06/23/2024 Start: 06-23-2023 End: 06-23-2024 Triiodothyronine (T3) [Mass/volume] in Serum or Plasma Triiodothyronine, Total Lab Routine Hyperlipidemia, unspecified hyperlipidemia type Chest pain, unspecified type Primary hypertension Paroxysmal atrial 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 (CMS/HCC) Expected: 06/23/2023 (Approximate), Expires: 06/23/2024 [facility] Work Phone: Comment on above: Expected: 06/23/2023 (Approximate), Expires: 06/23/2024 Start: 01-28-2023 COVID-19 Vaccine ( season) COVID-19 Vaccine ( season) [facility] Start: 12-23-2021 [facility] Work Phone: Start: 12-23-2021 [facility] Work Phone: Start: 11-05-2021 [facility] Work Phone: Start: 01-06-2020 Pneumococcal Vaccine : 65+ Years (2 - PPSV23 or PCV20) Pneumococcal Vaccine: 65+ Years (2 - PPSV23 or PCV20) [facility] Start: 01-06-2020 Pneumococcal Vaccine : 65+ Years (2 of 2 - PPSV23 or PCV20) Pneumococcal Vaccine: 65+ Years (2 of 2 - PPSV23 or PCV20) [facility] Start: 2011 RSV patient s and/or patients aged 60+ years (1 - 1-dose 60+ series) RSV patients and/or patients aged 60+ years (1 - 1-dose 60+ series) [facility] Start: 1991 Screening for malign ant neoplasm of breast Mammogram [facility] Start: 09-10-1969 Diabetes mellitus screening Diabetes Screening [facility] Start: 09-10-1969 Hepatitis C screening Hepatitis C Sc reening [facility] Start: 1950 Lipid panel Lipid Panel [facility] Start: 1950 Medicare Annual Well ness Visit Medicare Annual Wellness Visit (AWV) [facility] Start: 1950 Screening for malign ant neoplasm of colon [facility] Start: 1950 Screening for osteoporosis Bone Density Scan [facility] Patient Education Hemorrhoids Diverticulosis Dicyclomine 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[employer]LE WORKER Work Phone: [facility] Work Phone: 02-08-2022 Influenza, High-dose Seasonal, Quadrivalent, Preservative Free Generic Provider [facility] 12-15-2021 zoster vaccine recombinant Generic Provider [facility] 10-15-2021 zoster vaccine recombinant Generic Provider [facility] 08-28-2021 COVID-19 mRNA-1273 (Moderna) DO Gume Ziegler Work Phone: [facility] 08-28-2021 tetanus toxoid, reduced diphtheria toxoid, and acellular pertussis vaccine, adsorbed Generic Provider [facility] 04-22-2021 COVID-19 mRNA-1273 (Moderna) DO Gume Ziegler Work Phone: [facility] 03-11-2021 Kenalog -40 mg Dede mathew Other [facility] Other 02-10-2021 Influenza, High-dose Seasonal, Quadrivalent, Preservative Free Generic Provider [facility] 09-25-2020 COVID-19 mRNA-1273 (Moderna) Gume Ziegler Work Phone: [facility] 08-28-2020 COVID-19 mRNA-6913 (Moderna) DO Gume Ziegler Work Phone: [facility] 02-22-2020 influenza, high dose seasonal, preservative-free Generic Provider [facility] 12-31-2019 Kenalog -40 mg Dede Bolanos y Other [facility] Other 11-11-2019 pneumococcal conjugate vaccine, 13 valent Generic Provider [facility] 04-23-2019 Kenalog -40 mg Dede Calve y Other [facility] Other 02-24-2017 pneumococcal conjugate vaccine, 13 valent Generic Provider [facility] 03-09-2012 influenza virus vaccine, whole virus Sonu Connelly DIETITIAN Work Phone: [facility] 03-12-2011 influenza virus vaccine, whole virus Sonu Connelly DIETITIAN Work Phone: [facility] 03-19-2010 influenza virus vaccine, whole virus Sonu Connelly DIETITIAN Work Phone: [facility] 03-21-2009 influenza virus vaccine, whole virus Sonu Connelly DIETITIAN Work Phone: [facility] Payers Date Payer Category Payer Unknown [id number] 2021 Self-pay [id number] 2021 Medicaid [employer] MEDICARE A DVANTAGE [id number] 2016 Medicare [id number]. [id number] 1959 Medicare [id number] 2.16.840.1.108610.19 1951 Unknown [id number] 2.16.840.1.598074.3.579.2.593 1951 Unknown [id number] 2.16.840.1.428768.3.579.2.593 1951 Unknown [id number] 2.16.840.1.865834.3.579.2.593 1951 Unknown [id number] 2.16.840.1.163947.3.579.2.593 1951 Unknown [id number] 2.16.840.1.117165.3.579.2.593 1951 Unknown [id number] 2.16.840.1.528125.3.579.2.593 1951 Unknown [id number] 2.16.840.1.079811.3.579.2.1244 1951 Unknown [id number] 2.16.840.1.111888.3.579.2.124 1951 Unknown [id number] 2.16.840.1.489985.3.579.2.1244 1951 Unknown [id number] 2.16.840.1.780340.3.579.2.1246 1951 Unknown [id number] 2.16.840.1.338546.3.579.2.1246 1951 Unknown [id number] 2.16.840.1.961640.3.579.2.1246 1951 Unknown [id number] 2.16.840.1.859648.3.579.2.1246 1951 Unknown [id number] 2.16.840.1.275451.3.579.2.1246 1951 Unknown [id number] 2.16.840.1.185664.3.579.2.1259 1951 Unknown [id number] 2.16.840.1.915133.3.579.2.1259 1951 Unknown [id number] 2.16.840.1.860280.3.579.2.9 1951 Unknown [id number] 2.16.840.1.878260.3.579.2.1259 Medicare [id number] 2.16.840.1.405037.19 Unknown [id number] 2.16.840.1.276373.19 Unknown [id number] 2.16.840.1.590785.3.579.2.531 Unknown [id number] 2.16.840.1.446588.3.579.2.531 Unknown [id number] 2.16.840.1.935033.3.579.2.531 Unknown [id number] 2.16.840.1.780389.3.579.2.531 Unknown [id number] 2.16.840.1.392103.3.579.2.531 Social History Date Type Detail Facility Unknown if ever smoked [facility] Start: 06-23-2023 End: 02-21-2024 Sex Assigned At [id number] Other Start: 12-23-2021 [facility] Start: 1950 Sex Assigned At Female F [facility] Start: 06-23-2023 [facility] daily [facility] History of tobacco use Cigarette Smoker U [facility] Work Phone: Start: 06-23-2023 End: 02-21-2024 Cigarettes smoked current (pack per day) - Reported 0.3 [facility] Work Phone: Start: 06-23-2023 End: 02-21-2024 Tobacco use and exposure Smokeless tobacco non-user [facility] Work Phone: Start: 06-23-2023 End: 06-04-2024 Alcohol intake Lifetime non-drinker (finding) [facility] Work Phone: Start: 1950 Sex Assigned At Not on file [facility] Work Phone: Start: 06-13-2023 End: 01-09-2024 Exposure to SARS-CoV-2 (event) Not sure [facility] Start: 06-01-2023 End: 02-21-2024 Tobacco smoking status NHIS Occasional tobacco smoker [facility] Start: 04-29-2023 Alcohol Comment caffeine: soda /pop , coffee [facility] History of tobacco use Passive smoker [facility] Goals Date Patient Goal Desired Activity /State Clinical Notes 03-11-2021 to 06-04-2024 Sonu Connelly NP - 06/04/2024 9:43 AM Juan Connelly, JOSH [...] presents for Hypertension. HPI Specialists: Dr. Christine Smith- BRYN HTN: Currently taking Metoprolol 25mg Losartan 100mg [...] GLOBULIN RATIO 1.0 0.9 1.0 Resulting Agency [facility] Review of Systems Constitutional: Negative for [...] metabolic panel CBC and differential Other emphysema (CMS/[facility]) Currently taking Anoro and albuterol PRN. Is [...] Bilateral screening mammogram documented in this encounter [facility] 06-04-2024 Instructions Sonu Connelly NP - 06/04/2024 9:30 AM EST Have labs completed before next OV. Take all medications as prescribed. documented in this encounter [facility] 02-21-2024 History of Present illness Narrative Associated [...] Gastroenterology Age-related osteoporosis without current pathological fracture ([facility]) Relevant Medications alendronate (Fosamax) 70 MG tablet Calcium Carb-Cholecalciferol (Oyster Shell Calcium w/D) 500-5 MG-MCG tablet documented in this encounter [facility] 02-21-2024 Instructions Sonu Connelly NP - 02/21/2024 9:30 AM EDT Referral sent to GI- they will call you! 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 use of anticoagulant therapy CHADS VASc 3 chronically 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 full dose Eliquis age 73, weight 64 kg Denies bleeding diatheses [facility] Work Phone: 01-09-2024 Evaluation + Plan note Associated Problem(s): Paroxysmal atrial 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 (Multi) Regular ausculatory rate and rhythm in office today on Lopressor Initially identified May 2023 [facility] Work Phone: 01-09-2024 Evaluation + Plan note Associated Problem(s): Hyperlipidemia Low intensity statin Most recent LDL 76, HDL 52 [facility] Work Phone: 01-09-2024 Miscellaneous Notes Associated Problem(s): snf current use of anticoagulant therapy CHADS VASc [...] assistance. documented in this encounter [facility] Work Phone: 01-09-2024 Evaluation + Plan note Associated Problem(s): Primary hypertension Optimal in office [facility] Work Phone: 01-09-2024 Evaluation + Plan note Associated Problem(s): Cardiac and Vasculature May 2023 MPI no ischemia, no infarct. May 2023 TTE LVEF 54% Left atrium normal MR none [facility] Work Phone: 01-09-2024 Evaluation + Plan note Associated Problem(s): Current every day smoker Varies depending on activity Continued every day tobacco use. Have reviewed the negative cardiovascular impact of nicotine. Continues to decline pharmacological assistance. [facility] Work Phone: 01-09-2024 History of Present [...] today on Lopressor Initially identified May 2023 snf current use of anticoagulant therapy CHADS VASc [...] we can help. You may also call 3-633-YFKM-NOW for free resources and assistance. Richardson Rincon MSN, MANAGER HEAV[employer] DUTY-PACK MULE WORKER, PMHNP-BC [facility] Please excuse any errors in grammar or translation related to this dictation. Voice recognition software was utilized to prepare this document. documented in this encounter [facility] Work Phone: 01-09-2024 Instructions BRYSON [place] [...] we can help. You may also call 2-297-AQQZ-NOW for free resources and assistance. documented in this encounter [facility] Work Phone: 07-11-2023 History of Present [...] platelets 2 60,000. Reviewed results of the [employer] My[employer]. Objective Failed to redirect to the Timeline version of the [employer] SmartLink. Wt Readings from Last 3 Encounters: [...] results 07/11/2023 Current every day smoker 06/23/2023 snf current use of anticoagulant therapy 06/23/2023 Primary [...] plan. documented in this encounter [facility] Work Phone: 07-11-2023 Instructions Merry Wilkerson [...] visit. documented in this encounter [facility] Work Phone: 06-23-2023 History of Present illness Narrative Referred by for Establish Care and Atrial Fibrillation (Onset new afib) History Of Present Illness: Cydney Villa is a 72 y.o. female presenting with history of atrial fibrillation. Prior records reviewed, patient presented to Dr. Correa with palpitations. A Holter showed 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. [id number] score 3 placed on metoprolol and Eliquis [...] fibrillation (CMS/HCC) - Nuclear Stress Test; Future manager terminal current use of anticoagulant therapy - Nuclear [...] probably not pathologic, followed by primary care [id number] score 3 Postmenopausal female with several risk [...] MD. documented in this encounter [facility] Work Phone: 06-23-2023 Instructions Alex Hawley [...] today documented in this encounter [facility] Work Phone: 11-22-2022 Evaluation note Encounter [...] sooner if significantly worsening or changing appearance. 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) [facility] Other Evaluation noteNo [employer] Other Evaluation note* Diagnosis Onset Date Resolution Status Abdominal pain acute Blood in stool [facility] Work Phone: Evaluation note* Diagnosis Atrial fibrillation, unspecified type (CMS/HCC) Current every day smoker Gastroesophageal reflux disease, unspecified whether esophagitis present Hypercoagulable state due to 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 (CMS/HCC) manager terminal current use of anticoagulant therapy Hyperlipidemia, unspecified hyperlipidemia type Chest pain, unspecified type Primary hypertension Unspecified essential hypertension Paroxysmal atrial 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 (CMS/HCC) Atrial fibrillation documented in this encounter [facility] Work Phone: Evaluation note* Diagnosis manager terminal current use of anticoagulant therapy- Primary Atrial fibrillation, unspecified type (CMS/HCC) Gastroesophageal reflux disease, unspecified whether esophagitis present Paroxysmal atrial 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 (CMS/HCC) Atrial fibrillation Primary hypertension Unspecified essential hypertension Mixed hyperlipidemia Hypercoagulable state due to 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 (CMS/HCC) Current every day smoker Encounter to discuss test results Other specified counseling documented in this encounter [facility] Work Phone: Evaluation note* Diagnosis RLS [...] to other allergic trigger- Primary Other emphysema (CMS/HCC) Other emphysema documented in this encounter [facility] HealthcareEvaluation [facility]* Diagnosis manager terminal current use of anticoagulant therapy- Primary Atrial fibrillation, unspecified type (Multi) Paroxysmal atrial 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 (Multi) Atrial fibrillation Primary hypertension Unspecified essential hypertension Mixed hyperlipidemia Current every day smoker documented in this encounter [facility] Work Phone: Evaluation note* Diagnosis Primary hypertension ([facility]/HCC)- Primary Unspecified essential hypertension Age-related osteoporosis without current pathological fracture ([facility]/HCC) Gastroesophageal reflux disease without esophagitis Esophageal reflux Chronic epigastric pain Cigarette nicotine dependence without complication Other emphysema (CMS/HCC) Other emphysema Mixed hyperlipidemia ([facility]/HCC) Mixed hyperlipidemia documented in this encounter [facility] HealthcareEvaluation note* Diagnosis RLS (restless legs syndrome)- Primary Restless legs syndrome (RLS) Other emphysema (CMS/HCC) Other emphysema Irregularly irregular pulse rhythm Primary hypertension ([facility]/HCC) Unspecified essential hypertension Osteopenia of multiple sites Hyperlipidemia, unspecified hyperlipidemia type ([facility]/HCC) Intermittent palpitations Encounter for screening for lung cancer Cigarette nicotine dependence without complication New onset a-fib ([facility]/HCC)- Primary Atrial fibrillation New onset a-fib ([facility]/HCC)- Primary Atrial fibrillation Primary hypertension ([facility]/HCC)- Primary Unspecified essential hypertension New onset a-fib (CMS/HCC) Atrial fibrillation Hyperlipidemia, unspecified hyperlipidemia type ([facility]/HCC) RLS (restless legs syndrome) Restless legs syndrome (RLS) Paroxysmal atrial 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 ([facility]/HCC) Atrial fibrillation Other emphysema (J43.8) Other emphysema Primary pulmonary hypertension (I27.0) Primary pulmonary hypertension Gastroesophageal reflux disease without esophagitis Esophageal reflux Age-related osteoporosis without current pathological fracture (CMS/HCC) Primary hypertension ([facility]/HCC)- Primary Unspecified essential hypertension Paroxysmal atrial 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 [...] neoplasm of breast documented in this encounter [facility] HealthcareEvaluation note* Diagnosis RLS (restless legs syndrome)- [...] screening mammogram for malignant neoplasm of breast Abnormal laboratory test result- Primary Other abnormal clinical finding documented in this encounter [facility] HealthcareHistory general Narrative - Reported* Type Description Date Medical History GERD Medical History PUD Medical History hyperlipidemia Medical History diverticulosis Medical History colon polyps Surgical History HYSTERECTOMY Surgical History APPENDECTOMY Surgical History HEMRRHOIDECTOMY 01/16/21 Hospitalization History SEE [facility] Other Reason for referral (narrative)* Consultation (Routine) - Authorized Specialty Diagnoses / Procedures Referred By Contac t Referred To Contact Cardiology Diagnoses Atrial fibrillation, unspecified type (CMS/HCC) Paroxysmal atrial 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 (CMS/HCC) Primary hypertension Mixed hyperlipidemia Procedures Follow Up In Cardiology Jolly Smith MD [address] [facility] [address] [place] [address] Richardson Rincon, JENI-PACK MULE WORKER [address] [facility] [address], [address] [address] Referral ID Status Reason Start Date Expiration Date V isits Requested Visits Authorized [id number] Authorized 07/11/2023 07/10/2024 1 1 * Consultation (Routine) - Authorized Specialty Diagnoses / Procedures Referred By Contac t Referred To Contact Cardiology Diagnoses Atrial fibrillation, unspecified type (CMS/HCC) Gastroesophageal reflux disease, unspecified whether esophagitis present Paroxysmal atrial 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 (CMS/HCC) Primary hypertension Mixed hyperlipidemia Procedures Follow Up In Cardiology Jolly Smith MD [address] [facility] [address] [place] [address] Jolly Smith MD [address] [facility] [address] [place] [address] Referral ID Status Reason Start Date Expiration Date V isits Requested Visits Authorized [id number] Authorized 07/11/2023 07/10/2024 1 1 [facility] Work Phone: [employer] for referral (narrative)* Consultation (Routine) - Authorized Specialty Diagnoses / Procedures Referred By Contac t Referred To Contact Cardiology Diagnoses Atrial fibrillation, unspecified type (Multi) Procedures Follow Up In Cardiology Richardson Rincon MANAGER HEAVY DUTY-PACK MULE WORKER [facility] [facility], [address] [place] [address] Jolly Smith MD [address] [facility] [address] [place] [address] Referral ID Status Reason Start Date Expiration Date V isits Requested Visits Authorized [id number] Authorized 01/09/2024 01/08/2025 1 1 [facility] Work Phone: Rejtjq for referral (narrative)* Consultation (Routine) - Authorized Specialty Diagnoses / Procedures Referred By Contac t Referred To Contact Gastroenterology Diagnoses Chronic epigastric pain Procedures ID OFFICE/OUTPATIENT NEW HIGH MDM 60 MINUTES Sonu Connelly NP [address] [place] [phone] Soledad Jeffries DO [address] [facility]. [address] [place] [address] Referral ID Status Reason Start Date Expiration Date Visits Requested Visits Authorized [id number] Authorized Specialty Services Required 02/21/2024 08/19/2024 1 [...] atrial fibrillation (CMS/HCC) Procedures Nuclear Stress Test ID CV STRS TST XERS&/OR RX CONT ECG W/SI&R ID CV STRS TST XERS&/OR RX CONT ECG W/O I&R ID CV STRS TST XERS&/OR RX CONT ECG TRCG ONLY ID CV STRS TST XERS&/OR RX CONT ECG I&R ONLY CHG MYOCARDIAL SPECT MULTIPLE STUDIES Jolly Smith MD [address] [address] Referral ID Status Reason Start Date Expiration Date Visits Requested Visits Authorized [id number] Pending Review Perform Procedure 06/23/2023 06/22/2024 5 5 Specialty Diagnoses / Procedures Referred By Love t Referred To Contact Diagnoses Atrial fibrillation, unspecified type (CMS/HCC) Procedures ECG 12 Lead Jolly Smith MD [address] [address] Referral ID Status Reason Start Date Expiration Date V isits Requested Visits Authorized [id number] Authorized 06/23/2023 06/22/2024 1 1 Specialty Diagnoses / Procedures Referred By Contac t Referred To Contact Cardiology Diagnoses Atrial fibrillation, unspecified type (CMS/HCC) Gastroesophageal reflux disease, unspecified whether esophagitis present Procedures Follow Up In Cardiology Jolly Smith MD [address] [address] Jolly Smith MD [address] [place] [address], [place] [address] Referral ID Status Reason Start Date Expiration Date V isits Requested Visits Authorized [id number] Authorized 06/23/2023 06/22/2024 1 1 Additional Source Comments REASON FOR VISIT (unrecogniz ed section and content) Reason Comments Establish Care Atrial Fibrillation Onset new afib Specialty Diagnoses / Procedures Referred By Contac t Referred To Contact Diagnoses Atrial fibrillation, unspecified type (CMS/HCC) Procedures ECG 12 Lead Jolly Smith MD [address] [address] Referral ID Status Reason Start Date Expiration Date V isits Requested Visits Authorized [id number] Authorized 06/23/2023 06/22/2024 1 1 Specialty Diagnoses / Procedures Referred By Contac t Referred To Contact Cardiology Diagnoses Hypercoagulable state due to 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 (CMS/HCC) snf current use of anticoagulant therapy Hyperlipidemia, unspecified hyperlipidemia type Chest pain, unspecified type Primary hypertension Paroxysmal atrial 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 (CMS/HCC) Procedures Nuclear Stress Test ID CV STRS TST XERS&/OR RX CONT ECG W/SI&R ID CV STRS TST XERS&/OR RX CONT ECG W/O I&R ID CV STRS TST XERS&/OR RX CONT ECG TRCG ONLY ID CV STRS TST XERS&/OR RX CONT ECG I&R ONLY CHG MYOCARDIAL SPECT MULTIPLE STUDIES Jolly Smith MD [address] [address] Referral ID Status Reason Start Date Expiration Date Visits Requested Visits Authorized [id number] Authorized Perform Procedure 06/23/2023 06/22/2024 5 5 Reason Comments Follow-up Stress results Specialty Diagnoses / Procedures Referred By Contac t Referred To Contact Cardiology Diagnoses Atrial fibrillation, unspecified type (CMS/HCC) Gastroesophageal reflux disease, unspecified whether esophagitis present Procedures Follow Up In Cardiology Jolly Smith MD [address] [facility] [address] [place] [address] Jolly Smith MD [address] [facility] [address] [place] [address] Referral ID Status Reason Start Date Expiration Date V isits Requested Visits Authorized [id number] Authorized 06/23/2023 06/22/2024 1 1 Reason Comments Med Change Request Reason Comments Follow-up 6 months Specialty Diagnoses / Procedures Referred By Contac t Referred To Contact Cardiology Diagnoses Atrial fibrillation, unspecified type (Multi) Gastroesophageal reflux disease, unspecified whether esophagitis present Paroxysmal atrial 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 (Multi) Primary hypertension Mixed hyperlipidemia Procedures Follow Up In Cardiology Jolly Smith MD [address] [place] [address] Jolly Smith MD [address] [place] [address] Referral ID Status Reason Start Date Expiration Date V isits Requested Visits Authorized [id number] Authorized 07/11/2023 07/10/2024 1 1 Reason Comments [...] Shaikh Ashley MD Primary Care Provider Active Jawbone Puller Relationship Specialty Start Date End Date Shaikh Ramirez MD [address] [place] [address] PCP - General Internal Medicine 06/03/23 Jawbone Puller Relationship Specialty Start Date End Date Shaikh Ramirez MD [address] [place] [address] PCP - General Internal Medicine 06/03/23 Jawbone Puller Relationship Specialty Start Date End Date Shaikh Ramirez MD [address] [place] [address] PCP - General Internal Medicine 06/03/23 Jawbone Puller Relationship Specialty Start Date End Date Shaikh Ramirez MD PCP - General Internal Medicine 06/03/23 Jawbone Puller Relationship Specialty Start Date End Date Shaikh Ramirez MD [address] [place] [phone] PCP - General Internal Medicine 06/29/23 Jawbone Puller Relationship Specialty Start Date End Date Rocky Gupta MD [address] [place] [phone] PCP - General Family Medicine 02/07/24 Sonu Connelly NP [address] [place] [phone] Nurse Practitioner Family Medicine 02/07/24 Jawbone Puller Relationship Specialty Start Date End Date Shaikh Ramirez MD PCP - General Internal Medicine 06/03/23 Jawbone Puller Relationship Specialty Start Date End Date Rocky Gupta MD [address] [place] [phone] PCP - General Family Medicine 02/07/24 Sonu Connelly NP [address] [place] [address] Nurse Practitioner Family Medicine 02/07/24 Jawbone Puller Relationship Specialty Start Date End Date Rocky Gupta MD [address] [place] [phone] PCP - General Family Medicine 02/07/24 Sonu Connelly NP [address] [place] [address] Nurse Practitioner Family Medicine 02/07/24 Jawbone Puller Relationship Specialty Start Date End Date Rocky Gupta MD [address] [place] [phone] PCP - General Family Medicine 02/07/24 Sonu Connelly NP [address] [place] [address] Nurse Practitioner Family Medicine 02/07/24 Jawbone Puller Relationship Specialty Start Date End Date Rocky Gupta MD [address] [place] [phone] PCP - General Family Medicine 02/07/24 Sonu Connelly NP [address] [place] [address] Nurse Practitioner Family Medicine 02/07/24 Jawbone Puller Relationship Specialty Start Date End Date Rocky Gupta MD [address] [place] [phone] PCP - General Family Medicine 02/07/24 Sonu Connelly NP [address] [place] [phone] Nurse Practitioner Family Medicine 02/07/24 Jawbone Puller Relationship Specialty Start Date End Date Rocky Gupta MD [address] [place] [phone] PCP - General Family Medicine 02/07/24 Sonu Connelly NP [address] [place] [address] Nurse Practitioner Family Medicine 02/07/24 INFORMATION SOURCE (unrecogn ized section and content) DATE CREATED AUTHOR 04/12/2022 [facility] DATE CREATED AUTHOR AUTHOR'S ORGANIZ ATION 07/03/2022 [facility] DATE CREATED AUTHOR AUTHOR'S ORGANIZ ATION 03/25/2023 [facility] DATE CREATED AUTHOR AUTHOR'S ORGANIZ ATION 02/07/2024 [facility] DATE CREATED AUTHOR AUTHOR'S ORGANIZ ATION 03/28/2024 [facility] DATE CREATED AUTHOR AUTHOR'S ORGANIZ ATION 06/10/2024 [facility] d[facility] Specialists EPIC FOR RECORDS PERTAINING TO PATIENTS [...] BE BASED ON THE PRIMARY CLINICAL RECORDS. [employer] provides no warranty or guarantee of the accuracy or completeness of information in this document.
== END 2024-06-13 08:08 | disposition home or self-care (01) ==
LOC: MAMMO 08:08
DX: Z12.31 Encounter for screening mammogram for malignant neoplasm of breast (principal)
CPT/HCPCS: 77063; 77067

== ENCOUNTER 2024-10-31 08:42 | Outpatient (OUT) | payer MEDICARE, SELFPAY ==
--- OUTSIDE RECORDS SUMMARY | 2024-10-18 09:20 | XMS_ITS | Encounter Summary ---
Author Organization [facility] Address [address] [place] [address] Care Team Providers Care Circuit Tester Name Role Phone Rocky Gupta MD Primary Care Provider [phone] Anne Connelly NP Unavailable [phone] Reason for Visit * Reason Comments Medicare Annual Wellness Visit Initial Encounter Details Date Type Department Care Team (Late st Contact Info) Description 10/18/2024 9:20 AM EDT Office Visit [facility] [address] [place] [address] Leanne Mendes NP [address] [place] [id number] Encounter for Medicare annual wellness exam (Primary Dx); RLS (restless legs syndrome); Other emphysema (CMS/HCC); Paroxysmal atrial 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 (CMS/HCC); Primary hypertension (CMS/HCC); Gastroesophageal reflux disease without esophagitis; Age-related osteoporosis without current pathological fracture (CMS/HCC); Hypercoagulable state due to 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 (CMS/HCC); Cigarette nicotine dependence without complication; Mixed hyperlipidemia (CMS/HCC); Environmental and seasonal allergies; Encounter for screening for lung cancer; New onset a-fib (CMS/HCC); Seasonal allergic rhinitis due to other allergic trigger; Primary pulmonary hypertension (CMS/HCC); Restless legs syndrome Social History Tobacco Use Types Packs/Day Years Used Date Smoking Tobacco: Some Days Cigarettes Passive Smoke Exposure: Current Smokeless Tobacco: Never Alcohol Use Standard Drinks/Week Comments Never 0 (1 standard drink = 0.6 oz pur e alcohol) caffeine: soda/pop , coffee PHQ-2 Answer Date Recorded Patient Health Questionnaire-2 Score 0 10/18/2024 Comments Unknown Sex and Gender Information Value Date Recorded Sex Assigned at Not on file Legal Sex Female 6:47 PM EDT Gender Identity Not on file Sexual Orientation Not on file documented as of this encounter Last Filed Vital Signs Vital Sign Reading Time Taken Comments Blood Pressure 132/80 10/18/2024 9:18 AM EDT Pulse 60 10/18/2024 9:18 AM EDT Temperature 36.9 C (98.5 F) 10/18/2024 9:18 AM EDT Respiratory Rate 20 10/18/2024 9:18 AM EDT Oxygen Saturation 95% 10/18/2024 9:18 AM EDT Inhaled Oxygen Concentration - - Weight 67.8 kg (149 lb 6.4 oz) 10/18/2024 9:18 A M EDT Height - - Body Mass Index 27.33 06/04/2024 9:16 AM EST documented in this encounter Functional Status * Over the past 2 weeks, how often have you been bothered by any of the following problems? Question Answer Date of Assessment Author Little interest or pleasure in doing things Not at all 10/18/2024 9:35 AM EDT BALDEV ARROYO Feeling down, depressed, or hopeless Not at all 10/18/2024 9:35 AM EDT BALDEV ARROYO Patient Health Questionnaire -2 Score 0 10/18/2024 9:35 AM EDT BALDEV ARROYO A * Question Answer Date of Assessment Author Trouble falling or staying asleep, or sleeping too much Nearly every day 10/18/2024 9:35 AM BALDEV SAL A Feeling tired or having little energy Several days 10/18/2024 9:35 AM EDT BALDEV ARROYO A Poor appetite or overeating Several days 10/18/2024 9:35 AM EDT BALDEV ARROYO A Feeling bad about yourself - or that you are a failure or have let yourself or your family down Not at all 10/18/2024 9:35 AM EDT BALDEV ARROYO A Trouble concentrating on things, such as reading the newspaper or watching television Several days 10/18/2024 9:35 AM EDBALDEV LOGAN A Moving or speaking so slowly that other people could have noticed? Or the opposite - being so fidgety or restless that you have been moving around a lot more than usual. Nearly every day 10/18/2024 9:35 AM EDT BALDEV ARROYO Thoughts that you would be better off or hurting yourself in some way Not at all 10/18/2024 9:35 AM EDT PHILLIP ARROYO Patient Health Questionnaire-9 Score 9 10/18/2024 9:35 AM EDT PRATEEK ARROYO * How difficult have these problems made it for you to do your work, take care of things at home, or get along with other people? Answer Date of Assessment Author Not difficult at all 10/18/2024 9:35 AM EDT ELEAZAR CALVIN documented as of this encounter Patient Instructions * Patient Instructions* Leanne Mendes NP - 10/18/2024 9:20 AM EDT Stop cetirizne (zyrtec) start hank 180mg once a day (fexofenadine) Bone density test, I will fax order to [facility] if they do not call in 10 days call them to schedule: [phone] documented in this encounter Progress Notes * ELEAZAR ARROYO - 10/18/2024 9:20 AM EDT Last seen 06/04/24: HTN: metoprolol 25mg Checks BP at home average 120/80 Emphysema: anoro and albuterol PRN Tobacco user. Increased SOB GERD: pantoprazole 40mg Hyperlipidemia: atorvastatin 10mg Osteoporosis: fosamax 70mg and calcium carb (oyster shell) 500-5 MG-MCG Afib: eliquis 5mg Metoprolol tartrate 25mg Allergic rhinitis-zyrtec and flonase Pulmonary hypertension: losartan RLS: pramipexole 0.5mg Pt would like to increase the dose on her zyrtec- does not feel like it helps with the allergies (itchy watery eyes) Back pain- pt states she did go to PT about 2 years ago- pt states that it did help and she does dothe exercises at home still pt would like to get a referral for pain mgmt to [facility] Both hands since May are starting to tingle she states that the feeling goes to her elbows. Fingers and hands go numb, left hand is worse * Leanne Mendes, PLANT WORKER - 10/18/2024 9:20 AM EDT Images from the original note were not included. Cydney Villa is a 74 y.o. female presents with chief complaint of Medicare Annual Wellness Visit Initial HPI: Diet: variety Activity: walking, active with yard work Mental Health Concerns:no Falls in the last year: no Still driving: yes Do you pay your bills: yes Any hearing problems: no Any Vision problems: glasses, last eye exam: 2024 Any Hospitalizations in the last year: no Specialist: [facility], Dr Paulino HCPOA/Living Will: no Concerns: Pt would like to increase the dose on her zyrtec- does not feel like it helps with the allergies (itchy watery eyes) Back pain- pt states she did go to PT about 2 years ago- pt states that it did help and she does dothe exercises at home still pt would like to get a referral for pain mgmt to [facility] Both hands since May are starting to tingle she states that the feeling goes to her elbows. Fingers and hands go numb, left hand is worse Hypertension This is a chronic problem. The current episode started more than 1 year ago. The problem is unchanged. The problem is controlled. Pertinent negatives include no chest pain, headaches, palpitations orshortness of breath. There are no associated agents to hypertension. Risk factors for coronary artery disease include dyslipidemia and smoking/tobacco exposure. Past treatments include beta blockers and angiotensin blockers. The current treatment provides significant improvement. There are no compliance problems. GERD She complains of coughing. She reports no abdominal pain, no chest pain, no nausea, no sore throat or no wheezing. This is a chronic problem. The current episode started more than 1 year ago. The problem occurs occasionally. The problem has been rapidly improving. The symptoms are aggravated by certain foods. Risk factors include smoking/tobacco exposure and caffeine use. She has tried a PPI for the symptoms. The treatment provided significant relief. Past procedures include an EGD. SUBJECTIVE: MEDICATIONS: Current Outpatient Medications Medication Instructions albuterol HFA 90 mcg/act inhaler 2 puffs, Inhalation, Every 6 hours PRN alendronate (FOSAMAX) 70 mg, Oral, Every 7 days, Take in the morning with a full glass of water, travis empty stomach, and do not take anything else by mouth or lie down for the next 30 min. apixaban (ELIQUIS) 5 mg, Oral, 2 times daily atorvastatin (LIPITOR) 10 mg, Oral, Every evening Calcium Carb-Cholecalciferol (Oyster Shell Calcium w/D) 500-5 MG-MCG tablet 1 tablet, Oral, Every 12 hours fexofenadine (HANK) 180 mg, Oral, Daily fluticasone (Flonase) 50 MCG/ACT nasal spray 2 sprays, Each Nostril, Daily, Shake gently. Before first use, prime pump. After use, clean tip and replace cap. losartan (COZAAR) 100 mg, Oral, Daily metoprolol tartrate (LOPRESSOR) 25 mg, Oral, 2 times daily pantoprazole (PROTONIX) 40 mg, Oral, 2 times daily pramipexole (MIRAPEX) 0.5 mg, Oral, Nightly Umeclidinium-Vilanterol (Anoro Ellipta) 62.5-25 MCG/ACT aerosol powder 1 puff, Inhalation, Daily ALLERGIES: Allergies Allergen Reactions Bee Venom Unknown Ciprofloxacin Codeine Metronidazole Penicillins Morphine Dizziness REVIEW OF SYMPTOMS: Review of Systems Constitutional: Negative for appetite change, chills and fever. HENT: Positive for rhinorrhea. Negative for congestion, ear pain and sore throat. Eyes: Negative for pain, discharge, redness and visual disturbance. Respiratory: Positive for cough. Negative for shortness of breath and wheezing. Cardiovascular: Negative for chest pain, palpitations and leg swelling. Gastrointestinal: Negative for abdominal pain, blood in stool, constipation, diarrhea, nausea and vomiting. Genitourinary: Negative for difficulty urinating, dysuria and frequency. Musculoskeletal: Negative for arthralgias, back pain, joint swelling and myalgias. Skin: Negative for rash and wound. Neurological: Negative for dizziness, tremors, seizures, syncope and headaches. Psychiatric/Behavioral: Negative for behavioral problems, self-injury and suicidal ideas. The patient is not nervous/anxious. Hematological: Does not bruise/bleed easily. Endocrine: Negative for polydipsia, polyphagia and polyuria. Allergic/Immunologic: Negative for environmental allergies and food allergies. PAST MEDICAL HISTORY Past Medical History: Diagnosis Date Appendicitis Atrophy of muscle of ankle, unspecified laterality Bright red blood per rectum Bronchitis Chronic obstructive pulmonary disease, unspecified COPD type (CMS/HCC) Disease of bone Epigastric abdominal pain Gastroesophageal reflux disease without esophagitis History of cholecystectomy History of hysterectomy History of stomach ulcers Hyperlipidemia (CMS/HCC) Hypertension (CMS/HCC) Hypokalemia Low back pain Multilevel degenerative disc disease Muscle wasting and atrophy, not elsewhere classified, unspecified site Osteopenia of neck of femur, unspecified laterality Pneumonia Post menopausal syndrome Rash in adult Restless legs syndrome with nocturnal myoclonus Right hip pain Seasonal allergies Smoker Past Surgical History: Procedure Laterality Date APPENDECTOMY BLADDER SUSPENSION bladder sling CHOLECYSTECTOMY COLONOSCOPY HEMORRHOID SURGERY hemorrhoidectomy KNEE SURGERY arthroscopic TONSILLECTOMY TOTAL ABDOMINAL HYSTERECTOMY W/ BILATERAL SALPINGOOPHORECTOMY family history includes Diabetes in her mother; Heart failure in her mother. OBJECTIVE: Visit Vitals BP 132/80 (BP Location: Left arm, Patient Position: Sitting, BP Cuff Size: Adult long) Pulse 60 Temp 98.5 ??F (Temporal) Resp 20 Wt 149 lb 6.4 oz SpO2 95% BMI 27.33 kg/m?? Smoking Status Some Days BSA 1.72 m?? Physical Exam Vitals and nursing note reviewed. Constitutional: General: She is not in acute distress. Appearance: Normal appearance. HENT: Head: Normocephalic and atraumatic. Right Ear: Tympanic membrane, ear canal and external ear normal. Left Ear: Tympanic membrane, ear canal and external ear normal. Nose: Rhinorrhea present. No congestion. Comments: pallor Mouth/Throat: Mouth: Mucous membranes are moist. Pharynx: No oropharyngeal exudate or posterior oropharyngeal erythema. Eyes: Extraocular Movements: Extraocular movements intact. Conjunctiva/sclera: Conjunctivae normal. Neck: Vascular: No carotid bruit. Cardiovascular: Rate and Rhythm: Normal rate and regular rhythm. Pulses: Normal pulses. Heart sounds: Normal heart sounds. Pulmonary: Effort: Pulmonary effort is normal. Breath sounds: Normal breath sounds. Abdominal: General: Bowel sounds are normal. There is no distension. Palpations: Abdomen is soft. There is no mass. Tenderness: There is no abdominal tenderness (generalized mild). Musculoskeletal: General: Normal range of motion. Cervical back: Normal range of motion and neck supple. Right lower leg: No edema. Left lower leg: No edema. Lymphadenopathy: Cervical: No cervical adenopathy. Skin: General: Skin is warm and dry. Capillary Refill: Capillary refill takes 2 to 3 seconds. Findings: No rash. Neurological: General: No focal deficit present. Mental Status: She is alert and oriented to person, place, and time. Psychiatric: Mood and Affect: Mood normal. Behavior: Behavior normal. Thought Content: Thought content normal. Judgment: Judgment normal. ASSESSMENT AND PLAN: No follow-ups on file. Problem List Items Addressed This Visit Primary hypertension (CMS/HCC) Please check blood pressure daily and record DASH diet Limit caffeine Take medication as directed Contact office if chest pain, pressure, dizziness, shortness of breath, swelling legs Recommend slow position changes Current meds: b sherie, and arb Other emphysema (CMS/HCC) Current meds: albuterol, and anoro Relevant Medications Umeclidinium-Vilanterol (Anoro Ellipta) 62.5-25 MCG/ACT aerosol powder RLS (restless legs syndrome) - Primary Prescribed pramipexole Encounter for screening for lung cancer Patient meets requirements for low dose CT scan for lung cancer screening: age 55-80, patient is a current smoker or has quit in the last 15 years. Smoking history is > or equal to 30 pack-year. If needed the patient is able or willing to receive treatment. The patient is not currently exhibiting any s/s of lung cancer. We have discussed the benefits as well as harms of screening, follow up testing if needed, false positive rates. We have also discussed that this type of CT scan has less radiation exposure than a traditional lung CT scan. We have also discussed that it is important to follow with annual screening for this. The patient has also been counseled on the importance of smoking cessation. Encounter for Medicare annual wellness exam Reviewed Ht/Wt/BMI Recommend eye exam yearly Recommend dental exams twice a year Balance work/leisure activities Exercises is recommended most days of the week (appropriate as chronic conditions allow) Follow up yearly and prn Cigarette nicotine dependence without complication The patient has been advised of the risks of continued smoking: stroke, FL, all forms of cancer, lung disease, and . Options for quitting smoking include: cold turkey, hypnosis, acupuncture, nicotine replacement meds(gum, lozenges, and patches), Buproprion, and Varenicline. At this time pt is encouraged to evaluate their goals for wanting to quit smoking, and reach out toprovider when ready to start this process GERD (gastroesophageal reflux disease) Recommendations: freq small meals, nothing to eat or drink at least 2 hours prior to bed, limit caffeine, alcohol, as well as spicy foods Meds to limit or avoid if possible: NSAIDS Elevate HOB if possible Current med: pantoprazole Relevant Medications pantoprazole (ProtoNix) 40 MG EC tablet Hypercoagulability due to atrial fibrillation (CMS/HCC) On eliquis Hyperlipidemia (CMS/HCC) On statin therapy Check labs yearly and prn dose changes Relevant Medications atorvastatin (Lipitor) 10 MG tablet Paroxysmal atrial 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 (CMS/HCC) Current meds: eliquis, b sherie Follows with cardiology Stress test and ECHO from 05/2023 Age-related osteoporosis without current pathological fracture (CMS/HCC) Current meds: fosamax, calcium/vit d DEXA scan: Relevant Medications alendronate (Fosamax) 70 MG tablet Other Relevant Orders DEXA bone density Environmental and seasonal allergies Meds: cetirizine and flonase Relevant Medications fexofenadine (Hank) 180 MG tablet Other Visit Diagnoses New onset a-fib (CMS/HCC) Relevant Medications apixaban (Eliquis) 5 MG tablet metoprolol tartrate (Lopressor) 25 MG tablet Seasonal allergic rhinitis due to other allergic trigger Relevant Medications fluticasone (Flonase) 50 MCG/ACT nasal spray Primary pulmonary hypertension (CMS/HCC) Relevant Medications losartan (Cozaar) 100 MG tablet Restless legs syndrome Relevant Medications pramipexole (Mirapex) 0.5 MG tablet * Leanne Mendes NP - 10/18/2024 6:28 AM 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(s): Encounter for screening for lung cancer Patient meets requirements for low dose CT scan for lung cancer screening: age 55-80, patient is a current smoker or has quit in the last 15 years. Smoking history is > or equal to 30 pack-year. If needed the patient is able or willing to receive treatment. The patient is not currently exhibiting any s/s of lung cancer. We have discussed the benefits as well as harms of screening, follow up testing if needed, false positive rates. We have also discussed that this type of CT scan has less radiation exposure than a traditional lung CT scan. We have also discussed that it is important to follow with annual screening for this. The patient has also been counseled on the importance of smoking cessation. * Leanne Mendes NP - 10/18/2024 6:28 AM 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(s): Environmental and seasonal allergies Meds: cetirizine and flonase * Leanne Mendes NP - 10/18/2024 6:27 AM 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(s): Hyperlipidemia (CMS/HCC) On statin therapy Check labs yearly and prn dose changes * Leanne Mendes NP - 10/18/2024 6:27 AM 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(s): Encounter for Medicare annual wellness exam Reviewed Ht/Wt/BMI Recommend eye exam yearly Recommend dental exams twice a year Balance work/leisure activities Exercises is recommended most days of the week (appropriate as chronic conditions allow) Follow up yearly and prn * Leanne Mendes NP - 10/18/2024 6:26 AM 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(s): Cigarette nicotine dependence without complication The patient has been advised of the risks of continued smoking: stroke, FL, all forms of cancer, lung disease, and . Options for quitting smoking include: cold turkey, hypnosis, acupuncture, nicotine replacement meds(gum, lozenges, and patches), Buproprion, and Varenicline. At this time pt is encouraged to evaluate their goals for wanting to quit smoking, and reach out toprovider when ready to start this process * Leanne Mendes NP - 10/18/2024 6:26 AM 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(s): Hypercoagulability due to atrial fibrillation (CMS/HCC) On eliquis * Leanne Mendes NP - 10/18/2024 6:26 AM 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(s): Age-related osteoporosis without current pathological fracture (CMS/HCC) Current meds: fosamax, calcium/vit d DEXA scan: * Leanne Mendes NP - 10/18/2024 6:25 AM 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(s): GERD (gastroesophageal reflux disease) Recommendations: freq small meals, nothing to eat or drink at least 2 hours prior to bed, limit caffeine, alcohol, as well as spicy foods Meds to limit or avoid if possible: NSAIDS Elevate HOB if possible Current med: pantoprazole * Leanne Mendes NP - 10/18/2024 6:25 AM 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(s): Primary hypertension (CMS/HCC) Please check blood pressure daily and record DASH diet Limit caffeine Take medication as directed Contact office if chest pain, pressure, dizziness, shortness of breath, swelling legs Recommend slow position changes Current meds: b sherie, and arb * Leanne Mendes NP - 10/18/2024 6:24 AM 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(s): Paroxysmal atrial 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 (CMS/HCC) Current meds: eliquis, b sherie Follows with cardiology Stress test and ECHO from 05/2023 * Leanne Mendes NP - 10/18/2024 6:24 AM 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(s): Other emphysema (CMS/HCC) Current meds: albuterol, and anoro * Leanne Mendes NP - 10/18/2024 6:24 AM 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(s): RLS (restless legs syndrome) Prescribed pramipexole documented in this encounter Plan of Treatment Upcoming Encounters Date Type Department Care Team (Late st Contact Info) Description 04/18/2025 9:40 AM EST Office Visit [facility] [address] [place] [address] Leanne Mendes NP [address] [place] [id number] 10/24/2025 10:00 AM EDT Office Visit [facility] [address] [place] [address] Leanne Mendes NP [address] [place] [id number] Scheduled Orders Name Type Priority Associated Diagnoses Orde r Schedule DEXA bone density Imaging Routine Age-related osteoporosis without current pathological fracture ([facility]/HCC) Expected: 10/18/2024 (Approximate), Expires: 10/18/2025 documented as of this encounter Visit Diagnoses Diagnosis Encounter for Medicare annual wellness exam- Primary RLS (restless legs syndrome) Restless legs syndrome (RLS) Other emphysema ([facility]/HCC) Other emphysema Paroxysmal atrial 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 ([facility]/HCC) Atrial fibrillation Primary hypertension ([facility]/HCC) Unspecified essential hypertension Gastroesophageal reflux disease without esophagitis Esophageal reflux Age-related osteoporosis without current pathological fracture ([facility]/HCC) Hypercoagulable state due to 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 ([facility]/HCC) Cigarette nicotine dependence without complication Mixed hyperlipidemia ([facility]) Mixed hyperlipidemia Environmental and seasonal allergies Encounter for screening for lung cancer New onset a-fib ([facility]) Atrial fibrillation Seasonal allergic rhinitis due to other allergic trigger Primary pulmonary hypertension ([facility]) Primary pulmonary hypertension Restless legs syndrome Restless legs syndrome (RLS) documented in this encounter Additional Health Concerns Assessment Noted Time PHQ-9 Depression Total Score: 9 10/19/19 25 9:35 AM EDT documented as of this encounter Care Teams Circuit Tester Relationship Specialty Start Date End Date Rocky Gupta MD [address] [place] [address] PCP - General Family Medicine 02/07/24 Anne Connelly NP [address] [place] [address] Nurse Practitioner Family Medicine 02/07/24 documented as of this encounter
--- OUTSIDE RECORDS SUMMARY | 2024-10-31 08:45 | XMS_ITS | Encounter Summary ---
Author Organization [facility] Address [address] [place] [address] Care Team Providers Care Nail Kegger Name Role Phone Rocky Gupta MD Primary Care Provider [phone] Encounter Details Date Type Department Care Team (Late st Contact Info) Description 10/16/[address] [facility] AUTHORIZATION DEPARTMENT [address] [place] [address] Gabriel Pemberton MD [address] [place] [address] Social History Tobacco Use Types Packs/Day Years Used Date Smoking Tobacco: Some Days Cigarettes Alcohol Use Standard Drinks/Week Comments Not Currently 0 (1 standard drink = 0.6 oz pur e alcohol) [place] Safety & Environment Answer Date Rec orded Fear of Current or Ex-Partner Not on file Emotionally Abused Not on file 08/15/2023 Physically Abused Not on file 08/15/2023 Sexually Abused Not on file 08/15/2023 Physically or Sexually Abused Not on file Sex and Gender Information Value Date Recorded Sex Assigned at Not on file Gender Identity Not on file Sexual Orientation Not on file documented as of this encounter Plan of Treatment Not on file documented as of this encounter Visit Diagnoses Not on filedocumented in this encounter Care Teams Nail Kegger Relationship Specialty Start Date End Date Rocky Gupta MD [address] [place] [address] PCP - General Family Medicine 08/06/24 documented as of this encounter
--- OUTSIDE RECORDS SUMMARY | 2024-10-31 08:45 | XMS_ITS | Encounter Summary ---
Author Organization [facility] Address [address] [place] [address] Phone Care Team Providers Care Umbrella Cutter Name Role Phone Shaikh MARIAA Ramirez Primary Care Provider [phone] Encounter Details Date Type Department Care Team (Late st Contact Info) Description 06/14/2023 Scanned Document [facility] [address] [place] [address] Scanning, Generic Provider Social History Tobacco Use Types Packs/Day Years Used Date Smoking Tobacco: Never Assessed Comments Unknown Sex and Gender Information Value Date Recorded Sex Assigned at Not on file Legal Sex Female 11:31 AM EST Gender Identity Not on file Sexual Orientation Not on file documented as of this encounter Plan of Treatment Upcoming Encounters Date Type Department Care Team (Late st Contact Info) Description 08/05/2025 10:45 AM EDT Office Visit [facility] [address] [facility] [address] [place] [address] Jolly Smith MD [address] [place] [address] documented as of this encounter Procedures Procedure Name Priority Date/Time Associated Diagnosis Comments ECHOCARDIOGRAM 06/14/2023 ECHOCARDIOGRAM 06/14/2023 documented in this encounter Results * ECHOCARDIOGRAM (06/14/2023) Narrative 06/14/2023 Ordered by an unspecified provider. us Generic Provider Scanning CV ECHO PROCEDURES Fin al Result * ECHOCARDIOGRAM (06/14/2023) Narrative 06/14/2023 Ordered by an unspecified provider. us Generic Provider Scanning CV ECHO PROCEDURES Fin al Result documented in this encounter Visit Diagnoses Not on filedocumented in this encounter Care Teams Umbrella Cutter Relationship Specialty Start Date End Date Shaikh Ramirez MD PCP - General Internal Medicine 06/03/23 documented as of this encounter
--- OUTSIDE RECORDS SUMMARY | 2024-10-31 08:45 | XMS_ITS | Encounter Summary ---
Author Organization [facility] Address [address] [place] [address] Care Team Providers Care Cafe Lead Name Role Phone Shaikh MARIAA Ramirez Primary Care Provider [phone] Rocky Gupta MD Primary Care Provider [phone] Anne Connelly NP Unavailable [phone] Encounter Details Date Type Department Care Team (Late Contact Info) Description 07/04/2023 Orders Only [facility] [address] [place] [address] Shaikh Ramirez MD [address] [place] [address] Social History Tobacco Use Types Packs/Day Years Used Date Smoking Tobacco: Some Days Cigarettes Smokeless Tobacco: Never Alcohol Use Standard Drinks/Week Comments Never 0 (1 standard drink = 0.6 oz pur e alcohol) caffeine: soda/pop , coffee PHQ-2 Answer Date Recorded Patient Health Questionnaire-2 Score 0 06/29/2023 Comments Unknown Sex and Gender Information Value Date Recorded Sex Assigned at Not on file Legal Sex Female 6:47 PM EDT Gender Identity Not on file Sexual Orientation Not on file documented as of this encounter Plan of Treatment Upcoming Encounters Date Type Department Care Team (Late Contact Info) Description 04/18/2025 9:40 AM EST Office Visit [facility] [address] [place] [address] Leanne Mendes NP [address] [place] [address] 10/24/2025 10:00 AM EDT Office Visit [facility] [address] [place] [address] Leanne Mendes NP [address] [place] [address] documented as of this encounter Procedures Procedure Name Priority Date/Time Associated Diagnosis Comments MRI SPINE LUMBAR W/ + W/O CONTRAST Routine 03/10/2023 10:32 AM EDT documented in this encounter Results * MRI SPINE LUMBAR W/ + W/O CONTRAST (03/10/2023 10:32 AM EDT) Anatomical Region Laterality Modality Radiographic Pratima ging Shaikh Ashley LEROY IMG XR PROCEDURES Final Result documented in this encounter Visit Diagnoses Not on filedocumented in this encounter Additional Health Concerns Assessment Noted Time PHQ-9 Depression Total Score: 4 05/17/20 23 3:00 PM EST documented as of this encounter Care Teams Cafe Lead Relationship Specialty Start Date End Date Shaikh Ramirez MD [address] [place] [address] PCP - General Internal Medicine 06/29/23 02/06/24 Rocky Gupta MD [address] [place] [address] PCP - General Family Medicine 02/07/24 Anne Connelly NP [address] [place] [address] Nurse Practitioner Family Medicine 02/07/24 documented as of this encounter
--- OUTSIDE RECORDS SUMMARY | 2024-10-31 08:45 | XMS_ITS | Referral Summary ---
Author Organization [facility] Address [address] [place] [address] Care Team Providers Care Rn Stars Name Role Phone Rocky Gupta MD Primary Care Provider [phone] Encounters Date Type Department Care Team Description 10/19/2024 Travel 10/16/2024 Abstract [facility] AUTHORIZATION DEPARTMENT [address] [place] [address] Gabriel Pemberton MD 08/07/[address] [facility] [address] [place] [address] Jen Lambert MA Paroxysmal atrial 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 ([facility]/HCC) 08/07/[address] [facility] [address] [place] [address] Jen Lambert MA 08/07/2024 11:15 AM EDT Office Visit [facility] [address] [place] [address] Gabriel Pemberton MD PAF (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) (CMS/[facility]) from Last 3 Months Allergies Active Allergy Reactions Criticality Noted Date Comments Codeine Other Low 08/07/2024 Morphine Dizziness Low 08/07/2024 Penicillins Rash Low 08/07/2024 Medications Medication Sig Dispensed Refills Start Date End Date Status albuterol 90 mcg/actuation inhaler Inhale 2 puffs every 4 (four) hours if needed. 03/02/2023 Active alendronate (Fosamax) 70 mg tablet Take 70 mg by mouth every 7 (seven) days. Active Eliquis 5 mg tablet Take 5 mg by mouth in the morning and at bedtime. Active atorvastatin (Lipitor) 10 mg tablet Take 10 mg by mouth in the morning. Active calcium carbonate-vitamin D3 (Oscal-500) 500 mg-10 mcg (400 unit) tablet Take 2 tablets by mouth every 12 (twelve) hours. 09/01/2022 Active Oyster Shell Calcium-Vit D3 500 mg-5 mcg (200 unit) tablet Take 1 tablet by mouth every 12 (twelve) hours. Active cetirizine (ZyrTEC) 10 mg tablet Take 10 mg by mouth in the morning. 06/27/2024 Active metoprolol tartrate (Lopressor) 25 mg tablet Take 25 mg by mouth two times daily. Active pramipexole (Mirapex) 0.5 mg tablet Take 0.5 mg by mouth. 04/03/2023 Active predniSONE (Deltasone) 20 mg tablet TAKE 3 TABLETS BY MOUTH DAILY X3 DAYS, 2 TABLETS X3 DAYS, 1 TABLET X3 DAYS 03/17/2024 Active Anoro Ellipta 62.5-25 mcg/actuation blister with device inhale 1 puff daily Active fluticasone (Flonase) 50 mcg/actuation nasal spray Administer 1 spray into each nostril in the morning. Shake gently. Before first use, prime pump. After use, clean tip and replace cap. Active pantoprazole (ProtoNix) 40 mg EC tablet Take 40 mg by mouth before breakfast. Do not crush, chew, or split. Active Active Problems Problem Noted Date Diagnosed Date Paroxysmal atrial 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 08/07/2024 Social History Tobacco Use Types Packs/Day Years Used Date Smoking Tobacco: Some Days Cigarettes Tobacco Cessation:Ready to Q uit: Not Asked; Counseling Given: Not Answered Alcohol Use Standard Drinks/Week Comments Not Currently [...] on file Sexual Orientation Not on file Last Filed Vital Signs Vital Sign Reading Time Taken Comments Blood Pressure 119/66 08/07/2024 12:39 PM EDT Pulse 60 08/07/2024 12:39 PM EDT Temperature - - Respiratory Rate - - Oxygen Saturation 95% 08/07/2024 12:39 PM EDT Inhaled Oxygen Concentration - - Weight 64.4 kg (142 lb) 08/07/2024 12:39 PM EDT Height 157.5 cm (5' 2 ) 08/07/2024 12:39 PM EDT Body Mass Index 25.97 08/07/2024 12:39 PM EDT Plan of Treatment Not on file Procedures Procedure Name Priority Date/Time Associated Diagnosis Comments ECG 12 LEAD UNIT PERFORMED Routine 08/07/2024 1:09 PM EDT PAF (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) (CMS/HCC) from Last 3 Months Results * ECG 12 lead unit performed (08/07/2024 1:09 PM EDT) Gabriel Pemberton MD ECG ORDERABLES from Last 3 Months Care Teams Rn Stars Relationship Specialty Start Date End Date Rocky Gupta MD [address] [place] [address] PCP - General Family Medicine 08/06/24
--- OUTSIDE RECORDS SUMMARY | 2024-10-31 08:45 | XMS_ITS | Encounter Summary ---
Author Organization [facility] Address [address] [place] [address] Phone Care Team Providers Care Change Advisor Name Role Phone Shaikh MARIAA Ramirez Primary Care Provider [phone] Encounter Details Date Type Department Care Team (Late st Contact Info) Description 06/02/2023 Scanned Document [facility] [address] [place] [address] Scanning, Generic Provider Social History [...] Description 08/05/2025 10:45 AM EDT Office Visit [place] [address] [facility] [address] [place] [address] Jolly Smith MD [address] [place] [address] documented as of this encounter Visit Diagnoses Not on filedocumented in this encounter Care Teams Change Advisor Relationship Specialty Start Date End Date Shaikh Ramirez MD PCP - General Internal Medicine 06/03/23 documented as of this encounter
--- OUTSIDE RECORDS SUMMARY | 2024-10-31 08:45 | XMS_ITS | Encounter Summary ---
Author Organization [facility] Address [address] [facility] [place] [address] Care Team Providers Care Parachute Panel Joiner Name Role Phone Shaikh MARIAA Ramirez Primary Care Provider [phone] Rocky Gupta MD Primary Care Provider [phone] Anne Connelly CARDIAC SURGEON Unavailable [phone] Encounter Details Date Type Department Care Team (Late Contact Info) Description 07/07/2023 Clinisync Result Encounter [facility] External Department Unsolicited Provider, Generic External Data Social History Tobacco Use Types Packs/Day Years [...] 04/18/2025 9:40 AM EST Office Visit [facility] [address] [place] [address] Leanne Mendes NP [address] [place] [address] 10/24/2025 10:00 AM EDT Office Visit [facility] [address] [place] [phone] Leanne Mendes, JOSH [address] [place] [address] documented as of this encounter Procedures Procedure Name Priority Date/Time Associated Diagnosis Comments NUCLEAR STRESS TEST EXERCISE (CARD) 07/07/2023 7:47 AM EST documented in this encounter Results * NUCLEAR STRESS TEST EXERCISE (CARD) (07/07/2023 7:47 AM EST) Anatomical Region Laterality Modality Radiographic Pratima ging 07/07/2023 7:47 AM EST Narrative 07/07/2023 4:22 PM EST Interpreted By: Luisa Cabrera and Beal Gina STUDY: MYOCARDIAL PERFUSION STRESS TEST WITH LEXISCAN Performing facility: [facility], [address] [place] [address], [address], [address] Provider: Nazario Desai MD, FACC PCP: Dr. Reyna RAMIREZ Supervising provider: Nazario Desai MD, FACC INDICATION: Atherosclerosis of coronary artery of apache heart without angina pectoris, unspecified vessel or lesion type I25.10 (ICD-10-CM); Chest pain, unspecified type R07.9 (ICD-10-CM) HISTORY: Gender: F; Age: 72 y/o ; Height: HT 157.5 cm cm; Weight: WT 65.318 kg kg. CAD; Chest Pain; HTN; COPD; SOB; Arrhythmias; AFib, Palpitations; Currently smoking. COMPARISON: No comparison. ACCESSION NUMBER(S): [id number] ORDERING CLINICIAN: NAZARIO DESAI TECHNIQUE: ONE DAY protocol. Stress injection: Date:07/07/23, [...] Luisa Cabrera 07/07/2023 4:22 PM Dictation workstation: [id number] Procedure Note Radiology, Radiologist, MD - 07/07/2023 Interpreted By: Luisa Cabrera and Beal Gina STUDY: MYOCARDIAL PERFUSION STRESS TEST WITH LEXISCAN Performing facility: [facility], [address] [place] [address], [address], [address] Provider: Nazario Desai MD, FACC PCP: Dr. Reyna RAMIREZ Supervising provider: Nazario Desai MD, FACC INDICATION: Atherosclerosis of coronary artery of apache heart without angina pectoris, unspecified vessel or lesion type I25.10 (ICD-10-CM); Chest pain, unspecified type R07.9 (ICD-10-CM) HISTORY: Gender: F; Age: 72 y/o ; Height: HT 157.5 cm cm; Weight: WT 65.318 kg kg. CAD; Chest Pain; HTN; COPD; SOB; Arrhythmias; AFib, Palpitations; Currently smoking. COMPARISON: No comparison. ACCESSION NUMBER(S): [id number] ORDERING CLINICIAN: NAZARIO DESAI TECHNIQUE: ONE DAY protocol. Stress injection: Date:07/07/23, 34.4 mCi of Myoview IV 20 seconds after rapid injection of Lexiscan. Rest injection: Date: 2/8/24, 11.2 mCi of Myoview IV at rest. [...] Luisa Cabrera 07/07/2023 4:22 PM Dictation workstation: [id number] us Generic External Data Provider IMG XR PROCEDURES Final Result documented in this encounter Visit Diagnoses Not on filedocumented in this encounter Additional Health Concerns Assessment Noted Time PHQ-9 Depression Total Score: 4 05/17/20 23 3:00 PM EST documented as of this encounter Care Teams Parachute Panel Joiner Relationship Specialty Start Date End Date Shaikh Ramirez MD [address] [place] [address] PCP - General Internal Medicine 06/29/23 02/06/24 Rocky Gupta MD [address] [place] [address] PCP - General Family Medicine 02/07/24 Anne Connelly NP [address] [facility] [place] [address] Nurse Practitioner Family Medicine 02/07/24 documented as of this encounter
--- OUTSIDE RECORDS SUMMARY | 2024-10-31 08:45 | XMS_ITS | Clinical Summary ---
Author Organization [facility] Address [id number] [address] [place] [address] Care Team Providers Care Research Epidemiologist Name Role Phone Unavailable Primary Care Provider Unavailabl e Immunizations Immunization Administration Dates Next Due COVID-19, mRNA, LNP-S, PF, 100mcg/0.5mL Dose ,08/28/2020 Social History Tobacco Use Types Packs/Day Years Used Date Smoking Tobacco: Never Assessed Childcare Answer Date Recorded Childcare Unknown 08/27/2020 Employment Answer Date Recorded Employment Unknown 08/27/2020 Purpose - Life Answer Date Recorded Purpose and direction in life Unknown Comments Unknown Sex and Gender Information Value Date Recorded Sex Assigned at Not on file Legal Sex Female 11:29 AM EDT Gender Identity Not on file Sexual Orientation Not on file Plan of Treatment Health Maintenance Due Date Last Done Comments Depression Screening 1962 Tobacco Screening 1962 Adult BMI Screening 09/10/1969 DTaP,Tdap and Td Vaccines (1 - Tdap) 09/10/1970 Zoster (Shingles) Vaccine (1 of 2) 09/10/2001 Fall Risk Screening 09/10/2016 COVID-19 Vaccine (3 - 2023-2 5 season) 2024 09/25/2020, 08/28/2020 Influenza Vaccine 01/28/2025 03/09/2012, , 03/19/2010, Additional history exists Medical Devices Not on file Insurance [employer]
--- OUTSIDE RECORDS SUMMARY | 2024-10-31 08:45 | XMS_ITS | Clinical Summary ---
Author Organization [facility] Address [address] [place] [address] Care Team Providers Care Echocardiography Radiology Technologist Name Role Phone Rocky Gupta MD Primary Care Provider [phone] Allergies Active Allergy Reactions Criticality Noted Date [...] Date Diagnosed Date Paroxysmal atrial 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 08/07/2024 Encounters Date Type Department Care Team Description 10/19/2024 Travel 10/16/2024 Abstract [facility] AUTHORIZATION DEPARTMENT [address] [place] [address] Gabriel Pemberton MD 08/07/2024 11:15 AM EDT Office Visit [place] [address] [place] [address] Gabriel Pemberton MD PAF (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) (CMS/HCC) 08/07/2024 Orders Only [facility] [address] [place] [address] Jen Lambert MA Paroxysmal atrial 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 (CMS/HCC) 08/07/2024 Orders Only [facility] [address] [place] [address] Jen Lambert MA from Last 3 Months Family History Medical History Relation Name Comments Cirrhosis Brother auto accident Father Coronary artery disease Mother Relation Name Status Comments Brother Father Mother Social History Tobacco Use Types Packs/Day Years Used Date Smoking Tobacco: Some Days Cigarettes Tobacco Cessation:Ready to Q uit: Not Asked; Counseling Given: Not Answered Alcohol Use Standard Drinks/Week Comments Not Currently 0 (1 standard drink = 0.6 oz pur e alcohol) [place] Safety & Environment Answer Date Rec orded [...] 08/07/2024 12:39 PM EDT Plan of Treatment Health Maintenance Due Date Last Done Comments CT Colonography 1951 Colonoscopy 1950 Colorectal Cancer Screening 1950 FIT-DNA 1950 FIT 1950 FOBT 1950 Medicare Annual Wellness (AWV) 1950 Sigmoidoscopy 1950 Depression Screening 1962 Mammogram 1991 Fall Risk Screening 09/10/2016 COVID-19 Vaccine ( season) 2024 02/22/2024, 08/28/2021, 04/22/2021, Additional history exists Adult Tetanus 08/29/2031 08/28/2021 Zoster Vaccines Completed 12/15/2021, 10/15/2021 Influenza Vaccine Completed 02/08/2024, , 02/08/2022, Additional history exists Pneumococcal Vaccine: 65+ Years Completed 02/08/2024, 11/11/2019, 02/24/2017 HIB Vaccines Aged Out No longer eligi ble based on patient's age to complete this topic HPV Vaccines Aged Out No longer eligi ble based on patient's age to complete this topic IPV Vaccines Aged Out No longer eligi ble based on patient's age to complete this topic Meningococcal B Vaccine Aged Out No l onger eligible based on patient's age to complete this topic Meningococcal Vaccine Aged Out No tk eyad eligible based on patient's age to complete this topic Rotavirus Vaccines Aged Out No longer eligible based on patient's age to complete this topic Procedures Procedure Name Priority Date/Time Associated Diagnosis Comments ECG 12 LEAD UNIT PERFORMED Routine 08/07/2024 1:09 PM EDT PAF (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) (CMS/HCC) from Last 3 Months Results * ECG 12 lead unit performed (08/07/2024 1:09 PM EDT) Gabriel Pemberton MD ECG ORDERABLES from Last 3 Months Care Teams Echocardiography Radiology Technologist Relationship Specialty Start Date End Date Rocky Gupta MD [address] [place], [place] [phone] PCP - General Family Medicine 08/06/24
--- OUTSIDE RECORDS SUMMARY | 2024-10-31 08:45 | XMS_ITS | Clinical Summary ---
Author Organization [facility] Address [address] [place] [address] Care Team Providers Care Shipping And Receiving Supervisor Name Role Phone Unavailable Primary Care Provider Unavailabl e Allergies Active Allergy Reactions Criticality Noted Date Comments Codeine 05/18/2012 Increased BP Penicillins Hives 05/18/2012 Medications multivitamin (THERAGRAN) per tablet Take 1 tablet by mouth daily. Active Family History Medical History Relation Name Comments Cancer Brother Relation Name Status Comments Brother Father mva Mother chf Sister Alive Social History Tobacco Use Types Packs/Day Years Used Date Smoking Tobacco: Every Day Cigarettes Smokeless Tobacco: Never Alcohol Use Standard Drinks/Week Comments Not Asked 0 (1 standard drink = 0.6 oz pur e alcohol) Comments No Sex and Gender Information Value Date Recorded Sex Assigned at Not on file Legal Sex Female 5:01 PM EST Gender Identity Not on file Sexual Orientation Not on file Last Filed Vital Signs Vital Sign Reading Time Taken Comments Blood Pressure 128/80 05/18/2012 2:49 PM EST Pulse 44 05/18/2012 2:49 PM EST Temperature 37 C (98.6 F) 05/18/2012 2:49 PM EST Respiratory Rate 12 05/18/2012 2:49 PM EST Oxygen Saturation - - Inhaled Oxygen Concentration - - Weight 62.4 kg (137 lb 8 oz) 05/18/2012 2:49 PM EST Height 160 cm (5' 3 ) 05/18/2012 2:49 PM EST Body Mass Index 24.36 05/18/2012 2:49 PM EST Plan of Treatment Not on file
--- OUTSIDE RECORDS SUMMARY | 2024-10-31 08:46 | XMS_ITS | Encounter Summary ---
Author Organization [facility] Address [address] [place] [address] Phone Care Team Providers Care Orthotic Aide Name Role Phone Shaikh MARIAA Ramriez Primary Care Provider [phone] Encounter Details Date Type Department Care Team (Late st Contact Info) Description 06/20/2024 Scanned Document [facility] [address] [place] [phone] Scanning, Generic Provider Social History Tobacco Use Types Packs/Day Years Used Date Smoking Tobacco: Every Day Cigarettes Smokeless Tobacco: Never Alcohol Use Standard Drinks/Week Comments Never 0 (1 standard drink = 0.6 oz pur e alcohol) Comments Unknown Sex and Gender Information Value Date Recorded Sex Assigned at Not on file Legal Sex Female 11:31 AM EST Gender Identity Not on file Sexual Orientation Not on file documented as of this encounter Plan of Treatment Upcoming Encounters Date Type Department Care Team (Late st Contact Info) Description 08/05/2025 10:45 AM EDT Office Visit [facility] [address] [facility] [address] [place] [address] Jolly Smith MD [address] [facility] [address] [place] [address] documented as of this encounter Visit Diagnoses Not on filedocumented in this encounter Additional Health Concerns Assessment Noted Time A fall risk assessment has been complete d for the patient 01/09/2024 7:56 AM EDT documented as of this encounter Care Teams Orthotic Aide Relationship Specialty Start Date End Date Shaikh Ramirez MD PCP - General Internal Medicine 06/03/23 documented as of this encounter
--- OUTSIDE RECORDS SUMMARY | 2024-10-31 08:46 | XMS_ITS | Encounter Summary ---
Author Organization [facility] Address [address] [place] [address] Care Team Providers Care Contract Project Manager Name Role Phone Shaikh MARIAA Ramirez Primary Care Provider [phone] Shaikh MARIAA Ramirez Primary Care Provider [phone] Rocky Gupta MD Primary Care Provider [phone] Anne Connelly NP Unavailable [phone] Encounter Details Date Type Department Care Team (Late st Contact Info) Description 06/14/2023 Clinisync Result Encounter [facility] External Department Unsolicited Shaikh Ramirez MD [address] [place] [address] Social History Tobacco Use Types Packs/Day Years Used Date Smoking Tobacco: Some Days Cigarettes Smokeless Tobacco: Never Alcohol Use Standard Drinks/Week Comments Never 0 (1 standard drink = 0.6 oz pur e alcohol) caffeine: soda/pop , coffee PHQ-2 Answer Date Recorded Patient Health Questionnaire-2 Score 0 06/01/2023 Comments Unknown Sex and Gender Information Value Date Recorded Sex Assigned at Not on file Legal Sex Female 6:47 PM EDT Gender Identity Not on file Sexual Orientation Not on file documented as of this encounter Plan of Treatment Upcoming Encounters Date Type Department Care Team (Late st Contact Info) Description 04/18/2025 9:40 AM EST Office Visit [facility] [address] [place] [address] Leanne Mendes NP [address] [place] [address] 10/24/2025 10:00 AM EDT Office Visit [facility] [address] [place] [address] Leanne Mendes, JOSH [address] [place] [address] documented as of this encounter Procedures Procedure Name Priority Date/Time Associated Diagnosis Comments CA ECHO DOPPLER COMPLETE 06/14/2023 6:24 PM EST documented in this encounter Results * CA ECHO DOPPLER COMPLETE (06/14/2023 6:24 PM EST) Anatomical Region Laterality Modality Other 06/14/2023 6:24 PM EST Narrative 06/14/2023 6:25 [place] [address] Cardiology Report Signed Patient: SHERRI VILLA MR#: [id number] : 1950 Acct:[id number] Age/Sex: 72 / F ADM Date: 06/14/23 Loc: CARD Attending Dr: Shaikh Ashley Pablo Ordering Physician: Shaikh Bev Ramirez Date of Service: 06/14/23 Procedure(s): CA echo doppler complete Accession Number(s): [id number] cc: Shaikh Bev Ramirez Patient Name: SHERRI VILLA MR#: [id number] : 1950 Exam Date: 06/14/2023 Ordering Doctor: SHAIKH Denise RAIMREZ . ECHOCARDIOGRAM REPORT PROCEDURE: CA ECHO DOPPLER COMPLETE INDICATIONS: New atrial fibrillation, smoker COMPARISON: None. DESCRIPTION: COMPLETE ECHOCARDIOGRAM Real-time transthoracic echocardiography with 2D, M-mode, spectral and color flow Doppler performed. QUALITY: Technical quality was good. 62 , 144#, BSA 1.66 m2 LEFT VENTRICLE: Normal chamber size. Normal left ventricular wall thickness. Systolic function is normal. LV EF: Normal left ventricular ejection fraction, (55%). DIASTOLIC: Normal diastolic function. ATRIAL SEPTUM: Visually appears intact. LEFT ATRIUM: Normal chamber size. RIGHT ATRIUM: Normal chamber size. RIGHT VENTRICLE: Normal chamber size. Normal right ventricular systolic function. TRICUSPID VALVE: Normal mobility and thickness. No stenosis with mild regurgitation. Doppler studies reveal mildly (35-45) elevated right sided pressures. RVSP 43 mmHg MITRAL VALVE: Normal mobility and thickness. No evidence of mitral valve stenosis. There is no mitral annular calcification. Trivial mitral regurgitation. AORTIC VALVE: Normal trileaflet appearance. No visible sclerosis. Normal leaflet mobility. No evidence of aortic valve stenosis. No aortic regurgitation. AORTIC ROOT: Normal diameter and appearance. PULMONIC VALVE: Normal thickness and mobility. No stenosis. Trivial regurgitation. PERICARDIUM: No evidence of pericardial effusion. IVC: Collapses with inspirations. IVC is normal in size. PLEURA: CONCLUSION: 1. Normal ventricular function. LVEF is 55%. 2. No significant valvular dysfunction. 3. Mildly elevated right-sided pressures. 4. No pericardial effusion. Adult Echocardiography Procedure Report Left Ventricle LVEDD (3.7 - 5.6 cm): 4.26 cm LVESD (2.2 - 4.0 cm): 2.99 cm LVIVS thickness (0.6 - 1.2 cm): 0.95 cm LVPW thickness (0.5 - 1.0 cm): 0.94 cm e': 0.08 m/s E - e': 9.23 LVOT Max Gradient: 1.45 mm[Hg] LVOT Area (cm2): 0.60 m/s Peak Velocity (LVOT): 0.60 m/s Mean Velocity (LVOT): 0.42 m/s LVOT Diameter 2.40 cm Left Atrium LA Volume Index (2D A2C): 32.86 ml/m2 Left Atrium Systolic Dimension: 2.55 cm Mitral Valve MV E to A Ratio: 1.13 Mitral Valve A-Wave Peak Velocity: 0.67 m/s Mitral Valve E-Wave Peak Velocity: 0.76 m/s Right Ventricle Aorta AO Root Diam: 3.25 cm Ascending Ao Diam: 2.43 cm Aortic Valve AoV Area (Peak Tom): 2.77 cm2, 2.77 cm2 AoV Area (VTI): 2.55 cm2, 2.55 cm2 Peak Velocity(Antegrade Flow): 0.98 m/s Peak Gradient(Antegrade Flow): 3.87 mm[Hg] Mean Velocity(Antegrade Flow): 0.68 m/s Mean Gradient(Antegrade Flow): 2.07 mm[Hg] Velocity Time Integral: 25.98 cm Tricuspid Valve Peak Velocity (Regurgitant Flow): 2.76 m/s, 2.64 m/s, 3.18 m/s, 2.90 m/s Pulmonic Valve Peak Velocity: 0.66 m/s Peak Gradient: 1.97 mm[Hg], 1.57 mm[Hg] Right Atrium Right Atrium Systolic Pressure: 45.36 ml, 45.36 ml Dictated by: Ty Lane M.D. on 06/14/2023 at 18:22 Approved by: Ty Lane M.D. on 06/14/2023 at 18:24 Dictated By: TY LANE Signed By: 06/14/231824 DD/ 23 TD/TT: Cocktail Lounge Manager: Procedure Note Radiology, Radiologist, MD - 06/14/2023 [place] [address] Cardiology Report Signed Patient: SHERRI VILLA JMR#: [id number] : 1950cct:[id number] Age/Sex: 72 / FADM Date: 06/14/23 Loc: CARD Attending Dr: Shaikh Ashley Pablo Ordering Physician: Shaikh Bev Ramirez Date of Service: 06/14/23 Procedure(s): CA echo doppler complete Accession Number(s): [id number] cc: Shaikh Bev Ramirez Patient Name: SHERRI VILLA MR#: [id number] : 1950 Exam Date: 06/14/2023 Ordering Doctor: SHAIKH Denise RAMIREZ . ECHOCARDIOGRAM REPORT PROCEDURE: CA ECHO DOPPLER COMPLETE INDICATIONS: New atrial fibrillation, smoker COMPARISON: None. DESCRIPTION: COMPLETE ECHOCARDIOGRAM Real-time transthoracic echocardiography with 2D, M-mode, spectral and color flow Dopplerperformed. QUALITY: Technical quality was good. 62 , 144#, BSA 1.66 m2 LEFT VENTRICLE: Normal chamber size. Normal left ventricular wall thickness. Systolic function is normal. LV EF: Normal left ventricular ejection fraction, (55%). DIASTOLIC: Normal diastolic function. ATRIAL SEPTUM: Visually appears intact. LEFT ATRIUM: Normal chamber size. RIGHT ATRIUM: Normal chamber size. RIGHT VENTRICLE: Normal chamber size. Normal right ventricularsystolic function. TRICUSPID VALVE: Normal mobility and thickness. No stenosis with mild regurgitation. Doppler studies reveal mildly (35-45) elevated right sided pressures. RVSP 43 mmHg MITRAL VALVE: Normal mobility and thickness. No evidence of mitralvalve stenosis. There is no mitral annular calcification. Trivial mitral regurgitation. AORTIC VALVE: Normal trileaflet appearance. No visible sclerosis.Normal leaflet mobility. No evidence of aortic valve stenosis. No aortic regurgitation. AORTIC ROOT: Normal diameter and appearance. PULMONIC VALVE: Normal thickness and mobility. No stenosis. Trivial regurgitation. PERICARDIUM: No evidence of pericardial effusion. IVC: Collapses with inspirations. IVC is normal in size. PLEURA: CONCLUSION: 1. Normal ventricular function. LVEF is 55%. 2. No significant valvular dysfunction. 3. Mildly elevated right-sided pressures. 4. No pericardial effusion. Adult Echocardiography Procedure Report Left Ventricle LVEDD (3.7 - 5.6 cm): 4.26 cm LVESD (2.2 - 4.0 cm): 2.99 cm LVIVS thickness (0.6 - 1.2 cm): 0.95 cm LVPW thickness (0.5 - 1.0 cm): 0.94 cm e': 0.08 m/s E - e': 9.23 LVOT Max Gradient: 1.45 mm[Hg] LVOT Area (cm2): 0.60 m/s Peak Velocity (LVOT): 0.60 m/s Mean Velocity (LVOT): 0.42 m/s LVOT Diameter 2.40 cm Left Atrium LA Volume Index (2D A2C): 32.86 ml/m2 Left Atrium Systolic Dimension: 2.55 cm Mitral Valve MV E to A Ratio: 1.13 Mitral Valve A-Wave Peak Velocity: 0.67 m/s Mitral Valve E-Wave Peak Velocity: 0.76 m/s Right Ventricle Aorta AO Root Diam: 3.25 cm Ascending Ao Diam: 2.43 cm Aortic Valve AoV Area (Peak Tom): 2.77 cm2, 2.77 cm2 AoV Area (VTI): 2.55 cm2, 2.55 cm2 Peak Velocity(Antegrade Flow): 0.98 m/s Peak Gradient(Antegrade Flow): 3.87 mm[Hg] Mean Velocity(Antegrade Flow): 0.68 m/s Mean Gradient(Antegrade Flow): 2.07 mm[Hg] Velocity Time Integral: 25.98 cm Tricuspid Valve Peak Velocity (Regurgitant Flow): 2.76 m/s, 2.64 m/s, 3.18 m/s, 2.90m/s Pulmonic Valve Peak Velocity: 0.66 m/s Peak Gradient: 1.97 mm[Hg], 1.57 mm[Hg] Right Atrium Right Atrium Systolic Pressure: 45.36 ml, 45.36 ml Dictated by: Ty Lane M.D. on 06/14/2023 at 18:22 Approved by: Ty Lane M.D. on 06/14/2023 at 18:24 Dictated By: TY LANE Signed By:06/14/231824 DD/ 23 TD/TT: Cocktail Lounge Manager: us Shaikh Ashley [facility] Final Result documented in this encounter Visit Diagnoses Not on filedocumented in this encounter Additional Health Concerns Assessment Noted Time PHQ-9 Depression Total Score: 4 05/17/20 23 3:00 PM EST documented as of this encounter Care Teams Contract Project Manager Relationship Specialty Start Date End Date Shaikh Ramirez MD PCP - General Internal Medicine 02/27/23 06/28/23 Shaikh Ramirez MD [address] [place] [address] PCP - General Internal Medicine 06/29/23 02/06/24 Rocky Gupta MD [address] [place] [address] PCP - General Family Medicine 02/07/24 Anne Connelly NP [address] [place] [address] Nurse Practitioner Family Medicine 02/07/24 documented as of this encounter
--- OUTSIDE RECORDS SUMMARY | 2024-10-31 08:46 | XMS_ITS | Encounter Summary ---
Author Organization [facility] Address [address] [place] [address] Phone Care Team Providers Care Tower Truck Driver Name Role Phone Shaikh MARIAA Ramirez Primary Care Provider [phone] Encounter Details Date Type Department Care Team (Late st Contact Info) Description 01/31/2024 Scanned Document [facility] [address] [place] [address] Scanning, Generic Provider Social History [...] on file Sexual Orientation Not on file COVID-19 Exposure Response Date Recorded In the last 10 days, have yo u been in contact with someone who was confirmed or suspected to have Coronavirus/COVID-19? No / Unsure 01/09/2024 7:31 AM EDT documented as of this encounter Plan of Treatment Upcoming Encounters Date Type Department Care Team (Late st Contact Info) Description 08/05/2025 10:45 AM EDT Office Visit [facility] [address] [facility] [address] [place] [address] Jolly Smith MD [address] [facility] [address] [place], [place] [phone] documented as of this encounter Procedures Procedure Name Priority Date/Time Associated Diagnosis Comments OUTSIDE LAB SCAN 01/31/2024 OUTSIDE LAB SCAN 01/31/2024 documented in this encounter Results * OUTSIDE LAB SCAN (01/31/2024) Narrative 01/31/2024 Ordered by an unspecified provider. us Generic Provider Scanning OUTSIDE SCAN Final Result * OUTSIDE LAB SCAN (01/31/2024) Narrative 01/31/2024 Ordered by an unspecified provider. us Generic Provider Scanning OUTSIDE SCAN Final Result documented in this encounter Visit Diagnoses Not on filedocumented in this encounter Additional Health Concerns Assessment Noted Time A fall risk assessment has been complete d for the patient 01/09/2024 7:56 AM EDT documented as of this encounter Care Teams Tower Truck Driver Relationship Specialty Start Date End Date Shaikh Ramirez MD PCP - General Internal Medicine 06/03/23 documented as of this encounter
--- OUTSIDE RECORDS SUMMARY | 2024-10-31 08:46 | XMS_ITS | Encounter Summary ---
Author Organization [facility] Address [address] [place] [address] Care Team Providers Care Touch Up Edger Name Role Phone Shaikh MARIAA Ramirez Primary Care Provider [phone] Shaikh MARIAA Ramirez Primary Care Provider [phone] Rocky Gupta MD Primary Care Provider [phone] Anne Connelly INSURANCE CLAIMS ASSISTANT Unavailable [phone] Encounter Details Date Type Department Care Team (Late Contact Info) Description 06/20/[address] [facility] [address] [place] [address] Shaikh Ramirez MD [address] [place] [address] Social History Tobacco Use Types Packs/Day Years [...] 04/18/2025 9:40 AM EST Office Visit [facility] [address] [place] [address] Leanne Mendes JOSH [address] [place] [address] 10/24/2025 10:00 AM EDT Office Visit [facility] [address] [place] [address] Leanne Mendes NP [address] [place] [address] documented as of this encounter Procedures Procedure Name Priority Date/Time Associated Diagnosis Comments ECHO TRANSTHORACIC W/ DOPPLER Routine 06/14/2023 3:04 PM EST documented in this encounter Results * ECHO TRANSTHORACIC W/ DOPPLER (06/14/2023 3:04 PM EST) Anatomical Region Laterality Modality Radiographic Pratima ging us Shaikh Ashley L[facility] IMG XR PROCEDURES Final Result documented in this encounter Visit Diagnoses Not on filedocumented in this encounter Additional Health Concerns Assessment Noted Time PHQ-9 Depression Total Score: 4 05/17/20 23 3:00 PM EST documented as of this encounter Care Teams Touch Up Edger Relationship Specialty Start Date End Date Shaikh Ramirez MD PCP - General Internal Medicine 02/27/23 06/28/23 Shaikh Ramirez MD [address] [place] [address] PCP - General Internal Medicine 06/29/23 02/06/24 Rocky Gupta MD [address] [place] [address] PCP - General Family Medicine 02/07/24 Anne Connelly NP [address] [place] [address] Nurse Practitioner Family Medicine 02/07/24 documented as of this encounter
--- OUTSIDE RECORDS SUMMARY | 2024-10-31 08:46 | XMS_ITS | Encounter Summary ---
Author Organization [facility] Address [address] [place] [place] [address] Care Team Providers Care Supervisor Steffen House Name Role Phone Shaikh MARIAA Ramirez Primary Care Provider [phone] Shaikh MARIAA Ramirez Primary Care Provider [phone] Rocky Gupta MD Primary Care Provider [phone] Anne Connelly NP Unavailable [phone] Encounter Details Date Type Department Care Team (Late st Contact Info) Description 05/18/2023 Clinisync Result Encounter [facility] External Department Unsolicited Shaikh Ramirez MD [address] [place] [address] Social History Tobacco Use Types Packs/Day Years Used Date Smoking Tobacco: Some Days Cigarettes Alcohol Use Standard Drinks/Week Comments Never 0 (1 standard drink = 0.6 oz pur e alcohol) caffeine: soda/pop , coffee PHQ-2 Answer Date Recorded Patient Health Questionnaire-2 Score 2 05/17/2023 Comments Unknown Sex and Gender Information Value Date Recorded Sex Assigned at Not on file Legal Sex Female 6:47 PM EDT Gender Identity Not on file Sexual Orientation Not on file documented as of this encounter Plan of Treatment Upcoming Encounters Date Type Department Care Team (Late st Contact Info) Description 04/18/2025 9:40 AM EST [facility] [address] [place] [address] Leanne Mendes NP [address] [place] [address] 10/24/2025 10:00 AM EDT Office Visit [facility] [address] [place] [address] Leanne Mendes NP [address] [place] [address] documented as of this encounter Procedures Procedure Name Priority Date/Time Associated Diagnosis Comments ECG 12-LEAD 05/18/2023 9:14 AM EST documented in this encounter Results * ECG 12-LEAD (05/18/2023 9:14 AM EST) Anatomical Region Laterality Modality Other 05/18/2023 9:14 AM EST Narrative 05/19/2023 6:51 AM EST The [address] [address] Electrocardiograph Report Signed Patient: CYDNEY VILLA MR#: [id number] : 1950 Acct:[id number] Age/Sex: 72 / F ADM Date: 05/18/23 Loc: CARD Attending Dr: Shaikh Ashley Pablo Ordering Physician: Shaikh Bev Ramirez Date of Service: 05/18/23 Procedure(s): ECG 12 lead Accession Number(s): [id number] cc: The [facility] Test Date: 2023-05-18 Pat Name: CYDNEY VILLA Department: Room: - Gender: Female 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 Signed By:05/19/2351 05/19/23650 DD/ 3 TD/TT: Case Management Rn: us Shaikh Ashley [facility] Final Result documented in this encounter Visit Diagnoses Not on filedocumented in this encounter Additional Health Concerns Assessment Noted Time PHQ-9 Depression Total Score: 4 05/17/20 23 3:00 PM EST documented as of this encounter Care Teams Supervisor Steffen House Relationship Specialty Start Date End Date Shaikh Ramirez MD PCP - General Internal Medicine 02/27/23 06/28/23 Shaikh Ramirez MD [address] [place] [address] PCP - General Internal Medicine 06/29/23 02/06/24 Rocky Gupta MD [address] [place] [address] PCP - General Family Medicine 02/07/24 Anne Connelly NP [address] [place] [address] Nurse Practitioner Family Medicine 02/07/24 documented as of this encounter
--- OUTSIDE RECORDS SUMMARY | 2024-10-31 08:46 | XMS_ITS | Encounter Summary ---
Author Organization [facility] Address [address] [place] [address] Phone Care Team Providers Care Attorney Recruiter Name Role Phone Shaikh MARIAA Ramirez Primary Care Provider [phone] Encounter Details Date Type Department Care Team (Late st Contact Info) Description 06/27/2024 Scanned Document [facility] [address] [place] [address] Scanning, Generic Provider Social History Tobacco Use [...] Description 08/05/2025 10:45 AM EDT Office Visit [facility] [address] [facility] [address] [place] [address] Jolly Smith MD [address] [facility] [address] [place] [address] Scheduled Orders Name Type Priority Associated Diagnoses Orde r Schedule Ultrasound- OnBase Scan Imaging O rdered: 06/27/2024 documented as of this encounter Visit Diagnoses Not on filedocumented in this encounter Additional Health Concerns Assessment Noted Time A fall risk assessment has been complete d for the patient 01/09/2024 7:56 AM EDT documented as of this encounter Care Teams Attorney Recruiter Relationship Specialty Start Date End Date CristianewShaikh emanuel MD PCP - General Internal Medicine 06/03/23 documented as of this encounter
--- OUTSIDE RECORDS SUMMARY | 2024-10-31 08:46 | XMS_ITS | Clinical Summary ---
Author Organization [facility] Address [address] [place] [address] Phone Care Team Providers Care Aluminum Polisher Name Role Phone Shaikh MARIAA Ramirez Primary Care Provider [phone] Allergies Active Allergy Reactions Criticality Noted Date Comments Ciprofloxacin Unknown 06/20/2023 Codeine Unknown 06/20/2023 Metronidazole Unknown 06/20/2023 Penicillin G Unknown 06/20/2023 Medications albuterol 90 mcg/actuation inhaler Inhale 2 puffs every 4 hours if needed for wheezing. 3 Active alendronate (Fosamax) 70 mg tablet Take 1 tablet (70 mg) by mouth 1 (one) time per week. 3 Active Calcium 500 With D 500 mg-10 mcg (400 unit) tablet Take 2 tablets by mouth every 12 hours. 3 Active pantoprazole (ProtoNix) 40 mg EC tablet Take 1 tablet (40 mg) by mouth 2 times a day. 3 Active pramipexole (Mirapex) 0.5 mg tablet Take 1 tablet (0.5 mg) by mouth once daily at bedtime. 3 Active Anoro Ellipta 62.5-25 mcg/actuation blister with device Inhale 1 puff. 4 Active fluticasone (Flonase) 50 mcg/actuation nasal spray Administer 2 sprays into each nostril once daily. Shake gently. Before first use, prime pump. After use, clean tip and replace cap. Active apixaban (Eliquis) 5 mg tabletIndications: Paroxysmal atrial 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 (Multi) Take 1 tablet (5 mg) by mouth 2 times a day. 180 tablet 3 5 Active atorvastatin (Lipitor) 10 mg tabletIndications: Mixed hyperlipidemia Take 1 tablet (10 mg) by mouth once daily. 90 tablet 3 5 026 Active losartan (Cozaar) 100 mg tabletIndications: Primary hypertension Take 1 tablet (100 mg) by mouth once daily. 90 tablet 3 5 Active metoprolol tartrate (Lopressor) 25 mg tabletIndications: Primary hypertension Take 1 tablet (25 mg) by mouth 2 times a day. 180 tablet 3 5 Active Active Problems Problem Noted Date Diagnosed Date BMI 26.0-26.9,adult 08/24/2024 Tingling of upper extremity 08/24/2024 Encounter to discuss test results 07/11/2023 Current every day smoker 06/23/2023 Assessment & Plan (01/09/2024 8:05 AM EDT): Varies depending on activity Continued every day tobacco use. Have reviewed the negative cardiovascular impact of nicotine. Continues to decline pharmacological assistance. FPC current use of anticoagulant therapy 0 06/23/2023 Assessment & Plan (01/09/2024 11:42 AM EDT): CHADS VASc 3 chronically 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 full dose Eliquis age 73, weight 64 kg Denies bleeding diatheses Primary hypertension 06/23/2023 Assessment & Plan (01/09/2024 11:41 AM EDT): Optimal in office GERD (gastroesophageal reflux disease) 4 Chest pain 06/23/2023 Hyperlipidemia 06/23/2023 Assessment & Plan (01/09/2024 11:42 AM EDT): Low intensity statin Most recent LDL 76, HDL 52 Hypercoagulability due to atrial fibrillation (M ulti) 06/23/2023 Paroxysmal atrial 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 (Multi) 4 Assessment & Plan (01/09/2024 11:42 AM EDT): Regular ausculatory rate and rhythm in office today on Lopressor Initially identified May 2023 Resolved Problems Problem Noted Date Diagnosed Date Resolved Date A-fib (Multi) 06/23/2023 06/23/2023 Encounters Date Type Department Care Team Description 08/24/2024 1:30 PM EDT Office Visit [place] [id number] [facility] [address] [place] [address] Jolly Smith MD Paroxysmal atrial 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 (Multi); 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; Primary hypertension; Mixed hyperlipidemia; Tingling of upper extremity; Current every day smoker; BMI 26.0-26.9,adult 08/24/2024 Travel from Last 3 Months Family History Medical History Relation Name Comments Liver disease Brother Pancreatic cancer Brother Diabetes type I Mother Heart failure Mother Hypertension Mother Depression Sister Relation Name Status Comments Brother Father Mother Sister Social History Tobacco Use Types Packs/Day Years [...] Sign Reading Time Taken Comments Blood Pressure 140/80 08/24/2024 2:28 PM EDT Pulse 64 08/24/2024 1:20 PM EDT Temperature - - Respiratory Rate - - Oxygen Saturation - - Inhaled Oxygen Concentration - - Weight 65.5 kg (144 lb 6.4 oz) 08/24/2024 1:20 P M EDT Height 157.5 cm (5' 2 ) 08/24/2024 1:20 PM EDT Body Mass Index 26.41 08/24/2024 1:20 PM EDT Plan of Treatment Upcoming Encounters Date Type Department Care Team (Late st Contact Info) Description 08/05/2025 10:45 AM EDT Office Visit [address] [place] [address] Jolly Smith MD [address] [facility] [address] [place] [address] Health Maintenance Due Date Last Done Comments Bone Density Scan 1950 CT Colonography 1950 Colonoscopy 1950 Colorectal Cancer Screening 1950 FIT-DNA (Cologuard) 1950 FIT 1950 Lipid Panel 1950 Medicare Annual Wellness Visit (AWV) 1950 Sigmoidoscopy 1950 Diabetes Screening 09/10/1969 Hepatitis C Screening 09/10/1969 Mammogram 1991 COVID-19 Vaccine ( season) 2024 02/22/2024, 08/28/2021, 04/22/2021, Additional history exists DTaP/Tdap/Td Vaccines (2 - Td or Tdap) 08/29/2031 08/28/2021 Zoster Vaccines Completed 12/15/2021, 10/15/2021 Influenza Vaccine Completed 02/08/2024, , 02/08/2022, Additional history exists Pneumococcal Vaccine Completed 02/08/2024, 11/11/2019, 02/24/2017 RSV High Risk: (Elderly (60+) or Population) Completed 02/22/2024 HIB Vaccines Aged Out No longer eligi ble based on patient's age to complete this topic HPV Vaccines Aged Out No longer eligi ble based on patient's age to complete this topic Hepatitis A Vaccines Aged Out No long er eligible based on patient's age to complete this topic Hepatitis B Vaccines Aged Out No long er eligible based on patient's age to complete this topic IPV Vaccines Aged Out No longer eligi ble based on patient's age to complete this topic Meningococcal Vaccine Aged Out No tk eyad eligible based on patient's age to complete this topic Rotavirus Vaccines Aged Out No longer eligible based on patient's age to complete this topic Insurance AETNA MEDICARE VALUE PLAN AETNA MEDICARE VALUE PLAN Care Teams Aluminum Polisher Relationship Specialty Start Date End Date Shaikh Ramirez MD PCP - General Internal Medicine 06/03/23
--- OUTSIDE RECORDS SUMMARY | 2024-10-31 08:46 | XMS_ITS | Encounter Summary ---
Author Organization [facility] Address [address] [place] [address] Care Team Providers Care Hard Hat Diver Name Role Phone Shaikh MARIAA Ramirez Primary Care Provider [phone] Shaikh MARIAA Ramirez Primary Care Provider [phone] Rocky Gupta MD Primary Care Provider [phone] Anne Connelly NP Unavailable [phone] Encounter Details Date Type Department Care Team (Late st Contact Info) Description 05/24/2023 Clinisync Result Encounter [facility] External Department Unsolicited Shaikh Ramirez MD [address] [place] [address] Social History Tobacco Use Types [...] 04/18/2025 9:40 AM EST [facility] [address] [place] [id number] Leanne Mendes NP [address] [place] [address] 10/24/2025 10:00 AM EDT Office Visit [facility] [address] [place] [address] Leanne Mendes NP [address] [place] [address] documented as of this encounter Procedures Procedure Name Priority Date/Time Associated Diagnosis Comments CT LUNG SCREENING LOW DOSE 05/24/2023 8:25 AM EST documented in this encounter Results * CT LUNG SCREENING LOW DOSE (05/24/2023 8:25 AM EST) Anatomical Region Laterality Modality Other 05/24/2023 8:25 AM EST Narrative 05/24/2023 8:28 AM EST The [address] [address] [address] Scan Report Signed Patient: CYDNEY VILLA MR#: [id number] : 1950 Acct:[id number] Age/Sex: 72 / F ADM Date: 05/24/23 Loc: CT Attending Dr: Shaikh Ashley Pablo Ordering Physician: Shaikh Bev Ramirez Date of Service: 05/24/23 Procedure(s): CT lung screening low-dose Accession Number(s): [id number] cc: Shaikh Bev Ramirez The [address] [address] Patient Name: CYDNEY VILLA MRN: [id number] date: 1950 Sex: F Assigned Patient Location: CT Current Patient Location: CT Accession/Order Number: [id number] Exam Date: 05/24/2023 07:55 Report Date: 05/24/2023 08:25 At the request of: SHAIKH ASHLEY Procedure: CT lung screening low-dose EXAMINATION: CT lung screening low-dose HISTORY: screening for lung cancer Z12.2 COMPARISON: No relevant comparison available. TECHNIQUE: Axial, Coronal, and Sagittal images were created without the administration of IV contrast material. Dose reduction techniques were achieved by using automated exposure control and/or adjustment of mA and/or kV according to patient size and/or use of iterative reconstruction technique. FINDINGS: LUNGS: A few small granulomas. Mild emphysematous changes. PLEURA: No mass, effusion, or pneumothorax. VASCULATURE: No abnormality. YNES: Calcified lymph nodes compatible with chronic granulomatous disease. MEDIASTINUM: A few calcified lymph nodes. CARDIAC: No enlargement, pericardial thickening, or significant calcification. AORTA: No aneurysm or dissection. CHEST WALL: No mass or axillary adenopathy BONES: No bone lesion or fracture. LIMITED ABDOMEN: No suspicious findings. Limited images of the upper abdomen. OTHER: Negative. CT/CT lung screening low-dose IMPRESSION: 1. Lung-RADS 2- Benign Appearance or Behavior. Nodules with a very low likelihood of becoming a clinically active cancer due to size or lack of growth. Follow-up CT Chest in 1 year. Electronically authenticated by: CLYDE LAZCANO Date: 05/24/2023 08:25 Dictated By: Clyde Lazcano M.D. Signed By: 05/24/23827 DD/ 4 TD/TT: Tube Backer: Procedure Note Radiology, Radiologist, MD - 05/24/2023 [place] [address] CT Scan Report Signed Patient: CYDNEY VILLA R#: [id number] : 1950cct:[id number] Age/Sex: 72 / FADM Date: 05/24/23 Loc: CT Attending Dr: Shaikh Ashley Pablo Ordering Physician: Shaikh Bev Ramirez Date of Service: 05/24/23 Procedure(s): CT lung screening low-dose Accession Number(s): [id number] cc: Shaikh Bev Ramirez The [address] [address] Patient Name: CYDNEY VILLA MRN: [facility]:[id number] date: 1950 Sex: F Assigned Patient Location: CT Current Patient Location: CT Accession/Order Number: [id number] Exam Date: 05/24/2023 07:55 Report Date: 05/24/2023 08:25 At the request of: SHAIKH ASHLEY Procedure: CT lung screening low-dose EXAMINATION: CT lung screening low-dose HISTORY: screening for lung cancer Z12.2 COMPARISON: No relevant comparison available. TECHNIQUE: Axial, Coronal, and Sagittal images were created without the administration of IV contrast material. Dose reduction techniques were achieved by using automated exposure control and/or adjustment of mA and/or kV according to patient size and/or use of iterative reconstruction technique. FINDINGS: LUNGS: A few small granulomas. Mild emphysematous changes. PLEURA: No mass, effusion, or pneumothorax. VASCULATURE: No abnormality. YNES: Calcified lymph nodes compatible with chronic granulomatous disease. MEDIASTINUM: A few calcified lymph nodes. CARDIAC: No enlargement, pericardial thickening, or significantcalcification. AORTA: No aneurysm or dissection. CHEST WALL: No mass or axillary adenopathy BONES: No bone lesion or fracture. LIMITED ABDOMEN: No suspicious findings. Limited images of the upperabdomen. OTHER: Negative. CT/CT lung screening low-dose IMPRESSION: 1. Lung-RADS 2- Benign Appearance or Behavior. Nodules with a very low likelihood of becoming a clinically active cancer due to size or lack of growth. Follow-up CT Chest in 1 year. Electronically authenticated by: CLYDE LAZCANO Date: 05/24/2023 08:25 Dictated By: Clyde Lazcano M.D. Signed By:05/24/23827 DD/ 4 TD/TT: Tube Backer: us Shaikh Ashley [facility] Final Result documented in this encounter Visit Diagnoses Not on filedocumented in this encounter Additional Health Concerns Assessment Noted Time PHQ-9 Depression Total Score: 4 05/17/20 23 3:00 PM EST documented as of this encounter Care Teams Hard Hat Diver Relationship Specialty Start Date End Date Shaikh Ramirez MD PCP - General Internal Medicine 02/27/23 06/28/23 Shaikh Ramirez MD [address] [place] [address] PCP - General Internal Medicine 06/29/23 02/06/24 Rocky Gupta MD [address] [place] [address] PCP - General Family Medicine 02/07/24 Anne Connelly NP [address] [place] [address] Nurse Practitioner Family Medicine 02/07/24 documented as of this encounter
--- OUTSIDE RECORDS SUMMARY | 2024-10-31 08:46 | XMS_ITS | Encounter Summary ---
Author Organization [facility] Address [address] [place] [address] Care Team Providers Care Horn Player Name Role Phone Shaikh MARIAA Ramirez Primary Care Provider [phone] Shaikh MARIAA Ramirez Primary Care Provider [phone] Rocky Gupta MD Primary Care Provider [phone] Anne Connelly TECHNICIAN BIOLOGICAL HEALTH Unavailable [phone] Encounter Details Date Type Department Care Team (Late Contact Info) Description 06/08/2023 Orders Only [facility] [address] [place] [address] Shaikh Ramirez MD [address] [place] [address] Social History Tobacco Use Types Packs/Day Years [...] 04/18/2025 9:40 AM EST Office Visit [facility] [address] [place] [address] Leanne Mendes TECHNICIAN BIOLOGICAL HEALTH [address] [place] [address] 10/24/2025 10:00 AM EDT Office Visit [facility] [address] [place] [phone] Leanne Mendes, TECHNICIAN BIOLOGICAL HEALTH [address] [place] [address] documented as of this encounter Procedures Procedure Name Priority Date/Time Associated Diagnosis Comments CARD HOLTER MONITOR RECORDING Routine 05/18/2023 10:19 AM EST STRESS CARDIAC STRESS/LEXISCAN Routine 05/18/2023 9:59 AM EST documented in this encounter Results * CARD HOLTER MONITOR RECORDING (05/18/2023 10:19 AM EST) Anatomical Region Laterality Modality Radiographic Pratima ging us Shaikh Ashley [facility] IM[facility] XR PROCEDURES Final Result * STRESS CARDIAC STRESS/LEXISCAN (05/18/2023 9:59 AM EST) Anatomical Region Laterality Modality Radiographic Pratima ging Shaikh Ashley [facility] IMG XR PROCEDURES Final Result documented in this encounter Visit Diagnoses Not on filedocumented in this encounter Additional Health Concerns Assessment Noted Time PHQ-9 Depression Total Score: 4 05/17/20 23 3:00 PM EST documented as of this encounter Care Teams Horn Player Relationship Specialty Start Date End Date Shaikh Ramirez MD PCP - General Internal Medicine 02/27/23 06/28/23 Shaikh Ramirez MD [address] [place] [address] PCP - General Internal Medicine 06/29/23 02/06/24 Rocky Gupta MD [address] [place] [address] PCP - General Family Medicine 02/07/24 Anne Connelly NP [address] [place] [address] Nurse Practitioner Family Medicine 02/07/24 documented as of this encounter
--- OUTSIDE RECORDS SUMMARY | 2024-10-31 08:46 | XMS_ITS | Encounter Summary ---
Author Organization [facility] Address [address] [place] [address] Phone Care Team Providers Care Sephora Product Consultant Name Role Phone Shaikh MARIAA Ramirez Primary Care Provider [phone] Reason for Visit * Reason Comments Med Refill Encounter Details Date Type Department Care Team (Late st Contact Info) Description 12/31/[address] [place] [address] Jolly Smith MD [address] [facility] [address] [place], [place] [id number] Mixed hyperlipidemia Social History Tobacco Use Types Packs/Day Years [...] on file documented as of this encounter Miscellaneous Notes * Telephone Encounter - Jolly Smith MD - 01/02/2024 1:02 PM EDT Approving, but needs appt for additional refills. documented in this encounter Plan of Treatment Upcoming Encounters Date Type Department Care Team (Late Contact Info) Description 08/05/2025 10:45 AM EDT Office Visit [address] [address] Jolly Smith MD [address] [address] documented as of this encounter Visit Diagnoses Diagnosis Mixed hyperlipidemia documented in this encounter Additional Health Concerns Assessment Noted Time A fall risk assessment has been complete d for the patient 07/11/2023 12:38 PM EST documented as of this encounter Care Teams Sephora Product Consultant Relationship Specialty Start Date End Date Shaikh Ramirez MD PCP - General Internal Medicine 06/03/23 documented as of this encounter
--- OUTSIDE RECORDS SUMMARY | 2024-10-31 08:46 | XMS_ITS | Clinical Summary ---
Author Organization [facility] Address [address] [address] Care Team Providers Care Hvac Controls Technician Name Role Phone Rocky Gupta MD Primary Care Provider [phone] Anne Escamilla POLICE BOOKING OFFICER Unavailable [phone] Allergies Active Allergy Reactions Criticality Noted Date Comments Bee Venom Unknown 10/18/2024 Ciprofloxacin 05/17/2023 Codeine 05/17/2023 Metronidazole 05/17/2023 Morphine Dizziness Low 08/07/2024 Penicillins 05/17/2023 Medications Calcium Carb-Cholecalcifer ol (Oyster Shell Calcium w/D) 500-5 MG-MCG tabletIndications: Age-related osteoporosis without current pathological fracture (CMS/HCC) Take 1 tablet by mouth every 12 (twelve) hours 180 tablet 1 06/04/19 25 Active albuterol HFA 90 mcg/act inhalerIndications :Other emphysema (CMS/HCC) Inhale 2 puffs every 6 (six) hours if needed for wheezing 18 g 1 09/04/19 25 Active alendronate (Fosamax) 70 MG tabletIndications: Age-related osteoporosis without current pathological fracture (CMS/HCC) Take 1 tablet (70 mg) by mouth every 7 (seven) days Take in the morning with a full glass of water, on an empty stomach, and do not take anything else by mouth or lie down for the next 30 min. 12 tablet 1 10/19/19 25 025 Active apixaban (Eliquis) 5 MG tabletIndications: New onset a-fib (CMS/HCC) Take 1 tablet (5 mg) by mouth in the morning and 1 tablet (5 mg) before bedtime. 180 tablet 1 10/19/19 25 01/16/2 025 Active atorvastatin (Lipitor) 10 MG tabletIndications: Mixed hyperlipidemia (CMS/HCC) Take 1 tablet (10 mg) by mouth in the evening 90 tablet 10/19/19 Active fexofenadine (Alondra) 180 MG tabletIndications: Environmental and seasonal allergies Take 1 tablet (180 mg) by mouth Daily 90 tablet 1 10/19/19 025 Active fluticasone (Flonase) 50 MCG/ACT nasal sprayIndications:S easonal allergic rhinitis due to other allergic trigger Administer 2 sprays into each nostril Daily Shake gently. Before first use, prime pump. After use, clean tip and replace cap. 48 mL 10/19/19 Active losartan (Cozaar) 100 MG tabletIndications: Primary pulmonary hypertension (CMS/HCC) Take 1 tablet (100 mg) by mouth Daily 90 tablet 1 10/19/19 025 Active metoprolol tartrate (Lopressor) 25 MG tabletIndications: New onset a-fib (CMS/HCC) Take 1 tablet (25 mg) by mouth in the morning and 1 tablet (25 mg) before bedtime. 180 tablet 1 10/19/19 025 Active pantoprazole (ProtoNix) 40 MG EC tabletIndications: Gastroesophageal reflux disease without esophagitis Take 1 tablet (40 mg) by mouth in the morning and 1 tablet (40 mg) before bedtime. 180 tablet 1 10/19/19 025 Active pramipexole (Mirapex) 0.5 MG tabletIndications: Restless legs syndrome Take 1 tablet (0.5 mg) by mouth at bedtime 90 tablet 1 10/19/19 025 Active Umeclidinium-Vilan terol (Anoro Ellipta) 62.5-25 MCG/ACT aerosol powderIndications: Other emphysema (CMS/HCC) Inhale 1 puff Daily 180 each 10/19/19 025 Active alendronate (Fosamax) 70 MG tabletIndications: Age-related osteoporosis without current pathological fracture (CMS/HCC) Take 1 tablet (70 mg) by mouth every 7 (seven) days Take in the morning with a full glass of water, on an empty stomach, and do not take anything else by mouth or lie down for the next 30 min. 12 tablet 1 06/04/19 025 Discontin ued(Reord er) apixaban (Eliquis) 5 MG tabletIndications: New onset a-fib (CMS/HCC) Take 1 tablet (5 mg) by mouth in the morning and 1 tablet (5 mg) before bedtime. 180 tablet 1 06/04/19 025 Discontin ued(Reord er) atorvastatin (Lipitor) 10 MG tabletIndications: Mixed hyperlipidemia (CMS/HCC) Take 1 tablet (10 mg) by mouth Daily 90 tablet 06/04/19 Discontin ued(Reord er) fluticasone (Flonase) 50 MCG/ACT nasal sprayIndications:S easonal allergic rhinitis due to other allergic trigger Administer 1 spray into each nostril Daily Shake gently. Before first use, prime pump. After use, clean tip and replace cap. 48 mL 1 06/04/19 025 Discontin ued(Reord er) losartan (Cozaar) 100 MG tabletIndications: Primary pulmonary hypertension (CMS/HCC) Take 1 tablet (100 mg) by mouth Daily 100 tablet 1 06/04/19 Discontin ued(Reord er) Umeclidinium-Vilan terol (Anoro Ellipta) 62.5-25 MCG/ACT aerosol powderIndications: Other emphysema (CMS/HCC) Inhale 1 puff Daily 180 each 1 09/04/19 Discontin ued(Reord er) pantoprazole (ProtoNix) 40 MG EC tabletIndications: Gastroesophageal reflux disease without esophagitis Take 1 tablet (40 mg) by mouth in the morning and 1 tablet (40 mg) before bedtime. 180 tablet 09/04/19 025 Discontin ued(Reord er) metoprolol tartrate (Lopressor) 25 MG tabletIndications: New onset a-fib (CMS/HCC) Take 1 tablet (25 mg) by mouth in the morning and 1 tablet (25 mg) before bedtime. 180 tablet 09/04/19 025 Discontin ued(Reord er) pramipexole (Mirapex) 0.5 MG tabletIndications: Restless legs syndrome Take 1 tablet (0.5 mg) by mouth at bedtime 90 tablet 09/04/19 025 Discontin ued(Reord er) cetirizine (ZyrTEC) 10 MG tabletIndications: Seasonal allergic rhinitis due to other allergic trigger Take 1 tablet (10 mg) by mouth Daily 90 tablet 10/03/19 025 Discontin ued(Thera py completed ) Active Problems Problem Noted Date Diagnosed Date Environmental and seasonal allergies 10/18/2024 Assessment & Plan (10/18/2024 6:28 AM EDT): Meds: cetirizine and flonase Chronic epigastric pain 02/21/2024 Age-related osteoporosis wit hout current pathological fracture 02/21/2024 Assessment & Plan (10/18/2024 6:26 AM EDT): Current meds: fosamax, calcium/vit d DEXA scan: Grade II internal hemorrhoids 06/29/2023 GERD (gastroesophageal reflux disease) Assessment & Plan (10/18/2024 6:25 AM EDT): Recommendations: freq small meals, nothing to eat or drink at least 2 hours prior to bed, limit caffeine, alcohol, as well as spicy foods Meds to limit or avoid if possible: NSAIDS Elevate HOB if possible Current med: pantoprazole Assessment & Plan (02/21/2024 10:04 AM EDT): Currently taking Protonix 40 q12. Poorlyoorly controlled reflux, daily symptoms, acid taste in mouth. Complaining of epigastric pain after eating; Nausea/dry heaving; States pain has been ongoing for several years since cholystectomy; EGD within last 2 years -- no sig abnormality noted. Patient asked to stop using naproxen, work on smoking cessation. Referral sent to GI Assessment & Plan (09/27/2023 9:28 AM EDT): Previously reported poorly controlled reflux, daily symptoms, acid taste in mouth. Well controlled now on Protonix 40 q12. EGD within last 2 years -- no sig abnormality noted. Patient asked to stop using naproxen, work on smoking cessation. Assessment & Plan (06/29/2023 1:49 PM EST): Reports poorly controlled reflux, daily symptoms, acid taste in mouth. On Protonix and symptoms were reasonably controlled but worsened since she started using Eliquis. EGD within last 2 years -- no sig abnormality noted. Patient asked to stop using naproxen, work on smoking cessation. Increase protonix to 40 q12 Decrease coffee intake, limit spicy, fatty foods and try to eat multiple small meals and avoid large meals. Hypercoagulability due to atrial fibrillation Assessment & Plan (10/18/2024 6:26 AM EDT): On eliquis Hyperlipidemia 06/23/2023 Assessment & Plan (10/18/2024 6:27 AM EDT): On statin therapy Check labs yearly and prn dose changes Assessment & Plan (06/04/2024 9:38 AM EST): Currently taking Atorvastatin 10mg Denies any myalgias. Most recent Lipid Panel- WNL Continue current regimen. Assessment & Plan (02/21/2024 11:27 AM EDT): Currently taking Atorvastatin 10mg Denies any myalgias. Most recent Lipid Panel- WNL Continue current regimen. Paroxysmal atrial 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 05/31/2023 Assessment & Plan (10/18/2024 6:24 AM EDT): Current meds: eliquis, b sherie Follows with cardiology Stress test and ECHO from 05/2023 Assessment & Plan (09/27/2023 9:29 AM EDT): Newly diagnosed earlier in 2023 on Lopressor 25 q12. CHADVASC 2 score is 3, on eliquis for stroke px. No sig abnormality on ECHO. Normal lexiscan Following cardiology now. Assessment & Plan (09/27/2023 9:28 AM EDT): >>ASSESSMENT AND PLAN FOR NEW ONSET A-FIB (CMS/HCC) WRITTEN ON 05/31/2023 9:45 AM BY SHAIKH VINCE MD Holter Monitor ordered for intermittent palpitations and irregular pulse noted during exam/office visit. Indicative of parox. Afib. Start patient on Lopressor 25 q12. CHADVASC 2 score is 3 Will start on Eliquis and order 2D ECHO to assess cardiac structure especially because she has been experiencing shortness of breath on exertion. Assessment & Plan (09/27/2023 9:28 AM EDT): >>ASSESSMENT AND PLAN FOR NEW ONSET A-FIB (CMS/HCC) WRITTEN ON 06/01/2023 12:55 PM BY SHAIKH VINCE MD Holter Monitor ordered for intermittent palpitations and irregular pulse noted during exam/office visit. Indicative of parox. Afib. Start patient on Lopressor 25 q12. CHADVASC 2 score is 3 Will start on Eliquis and order 2D ECHO to assess cardiac structure especially because she has been experiencing shortness of breath on exertion. Refer to Cardiology. Patient educated and counseled on Afib, risk of stroke, need for anticoagulation for stroke px. Assessment & Plan (09/27/2023 9:28 AM EDT): >>ASSESSMENT AND PLAN FOR NEW ONSET A-FIB (CMS/HCC) WRITTEN ON 06/29/2023 1:44 PM BY SHAIKH VINCE MD Started on Lopressor 25 mg q12, Eliquis for stroke px. 2D ECHO 06/22- no sig cardiac structual abnormality. Patient educated and counseled on Afib, risk of stroke, need for anticoagulation for stroke px. Scheduled for nuclear stress test. Primary hypertension 05/17/2023 Assessment & Plan (10/18/2024 6:25 AM EDT): Please check blood pressure daily and record DASH diet Limit caffeine Take medication as directed Contact office if chest pain, pressure, dizziness, shortness of breath, swelling legs Recommend slow position changes Current meds: b sherie, and arb Assessment & Plan (06/04/2024 9:37 AM EST): Currently taking Metoprolol 25mg Losartan 100mg Checks BP at home; Averages are less than 120/80. Denies orthostatic changes, dizziness, cough, shortness of breath, swelling in extremities. Continue current regimen. Given BP log, encouraged pt to record BP and bring log back with them to next visit. Assessment & Plan (02/21/2024 11:28 AM EDT): Currently taking Metoprolol 25mg Losartan 100mg Checks BP at home; Averages are 114/80's Denies orthostatic changes, dizziness, cough, shortness of breath, swelling in extremities. Continue current regimen. Given BP log, encouraged pt to record BP and bring log back with them to next visit. Assessment & Plan (09/27/2023 9:30 AM EDT): BP well controlled. On average less than 130/90. Tolerating Anti hypertensive w/o adverse effects. Denies lightheadedness, dizziness, syncope, presyncope. Patient encouraged to continue with home BP monitoring and call office if he experiences orthostatic symptoms or persistently elevated BP. On Losartan 100 mg, lopressor 25 q12 Assessment & Plan (06/29/2023 1:43 PM EST): BP well controlled. On average less than 130/90. Tolerating Anti hypertensive w/o adverse effects. Denies lightheadedness, dizziness, syncope, presyncope. Patient encouraged to continue with home BP monitoring and call office if he experiences orthostatic symptoms or persistently elevated BP. On Losartan 100 mg. Assessment & Plan (05/17/2023 4:04 PM EST): BP well controlled. On average less than 130/90. Tolerating Anti hypertensive w/o adverse effects. Denies lightheadedness, dizziness, syncope, presyncope. Patient encouraged to continue with home BP monitoring and call office if he experiences orthostatic symptoms or persistently elevated BP. On Losartan 100 mg. Other emphysema 05/17/2023 Assessment & Plan (10/18/2024 6:24 AM EDT): Current meds: albuterol, and anoro Assessment & Plan (06/04/2024 9:43 AM EST): Currently taking Anoro and albuterol PRN. Is still current 1ppd smoker. Reports she recently had bronchitis and noticed increased shortness of breath. Denies fever, cough, chest pain, LE edema, PND, Orthopnea. Discussed with patient importance of quitting smoking, Assessment & Plan (05/17/2023 4:03 PM EST): Uses Anoro for it. Continues to smoke. She reports that she has noticed lately, she has been needing rescue inhaler more often and frequently and has experienced more SOB on exertion. Denies fever, cough, chest pain, LE edema, PND, Orthopnea. Patient educated on adverse effects of smoking on COPD and reiterated to her that she needs to quite smoking Irregularly irregular pulse rhythm 05/17/2023 Assessment & Plan (05/17/2023 4:34 PM EST): Irregularly irregular pulse noted on exam with HR fluctuating between 60-120 No associated symptoms currently and denies CP, SOB, and palpitations. She has noted that lately she is getting SOB easily. She is also experiencing intermittent palpitations. She has no known hx of CAD. She does have quite a few risk factors for Afib, CAD including COPD, HTN, her age, smoking status. Stat EKG ordered. Also a Holter monitor for improved diagnostic yield and accuracy. RLS (restless legs syndrome) 05/17/2023 Assessment & Plan (10/18/2024 6:24 AM EDT): Prescribed pramipexole Assessment & Plan (06/29/2023 1:43 PM EST): Well controlled. Does not use Mirapex daily. Monitor as clinically indicated. Assessment & Plan (05/17/2023 4:02 PM EST): Well controlled. Does not use Mirapex daily. Monitor as clinically indicated. Encounter for screening for lung cancer 12/19/20 23 Assessment & Plan (10/18/2024 6:28 AM EDT): Patient meets requirements for low dose CT [...] counseled on the importance of smoking cessation. Assessment & Plan (05/17/2023 4:06 PM EST): Chronic smoker. Has cut down smoking but still smokes atleast half a pack. Has more than 30 pack year hx. Complications from continuous smoking/tobacco use include COPD/emphysema. D/w patient about potential risks/benefits of lung cancer screening. She verbalized understanding and would like to proceed with CT chest. Ordered. Will wait for PA to schedule. Encounter for Medicare annual wellness exam 04/29 Assessment & Plan (10/18/2024 6:27 AM EDT): Reviewed Ht/Wt/BMI Recommend eye exam yearly Recommend dental exams twice a year Balance work/leisure activities Exercises is recommended most days of the week (appropriate as chronic conditions allow) Follow up yearly and prn Assessment & Plan (05/17/2023 4:36 PM EST): Patient here for Medicare Wellness Exam. She is upto date on Colonoscopy, mammogram. She will need LDCT for lung cancer screening that was ordered today. Patient recommended to get Pneumonia vaccine given her age, chronic lung disease. Cigarette nicotine dependence without complicati on 05/17/2023 Assessment & Plan (10/18/2024 6:26 AM EDT): The patient has been advised of the risks of continued smoking: stroke, NV, all forms of cancer, lung disease, and . Options for quitting smoking include: cold turkey, hypnosis, acupuncture, nicotine replacement meds (gum, lozenges, and patches), Buproprion, and Varenicline. At this time pt is encouraged to evaluate their goals for wanting to quit smoking, and reach out to provider when ready to start this process Assessment & Plan (02/21/2024 10:05 AM EDT): Current 1-2 cigarettes per day smoker. Patient counseled on smoking/tobacco cessation. Patient educated on harmful effects of smoking cigarettes/tobacco including increased risk of cardiovascular diseases, chronic lung disease and multiple cancers Assessment & Plan (05/17/2023 4:42 PM EST): Patient counseled on smoking/tobacco cessation. Patient educated on harmful effects of smoking cigarettes/tobacco including increased risk of cardiovascular diseases, chronic lung disease and multiple cancers. Resolved Problems Problem Noted Date Diagnosed Date Resolved Date Abnormal laboratory test result 06/12/2024 10/18/2024 Current every day smoker 06/23/2023 HLD (hyperlipidemia) 05/17/2023 025 Assessment & Plan (06/29/2023 1:45 PM EST): On Lipitor 10 mg. Lipid panel 06/22 -LDL less than 70 Assessment & Plan (05/17/2023 4:06 PM EST): On Lipitor. C/w same. Osteopenia of multiple sites 05/17/2023 10/18/2024 Assessment & Plan (05/17/2023 4:04 PM EST): On Alendronate. Noted on DEXA scan 10/17 Encounters Date Type Department Care Team Description 10/18/2024 9:20 AM EDT Office Visit [facility] [address] [place] [address] Leanne Mendes NP Encounter for Medicare annual wellness exam (Primary Dx); RLS (restless legs syndrome); Other emphysema (CMS/HCC); Paroxysmal atrial 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 (CMS/HCC); Primary hypertension (CMS/[facility]); Gastroesophageal reflux disease without esophagitis; Age-related osteoporosis without current pathological fracture ([facility]); Hypercoagulable state due to 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 ([facility]); Cigarette nicotine dependence without complication; Mixed hyperlipidemia ([facility]); Environmental and seasonal allergies; Encounter for screening for lung cancer; New onset a-fib ([facility]); Seasonal allergic rhinitis due to other allergic trigger; Primary pulmonary hypertension ([facility]); Restless legs syndrome 10/01/2024 Refill [facility] [address] [place] [address] Rocky Gupta MD Seasonal allergic rhinitis due to other allergic trigger 09/03/2024 Refill [facility] [address] [place] [address] Leanne Mendes NP Other emphysema ([facility]); Gastroesophageal reflux disease without esophagitis; New onset a-fib ([facility]); Restless legs syndrome from Last 3 Months Immunizations Immunization Administration Dates Next Due ABRYSVO - Respiratory syncyt ial virus (RSV), vaccine, bivalent, protein subunit RSV prefusion F, diluent reconstituted, 0.5 mL, PF 02/22/2024 Influenza Whole 03/09/2012, 1,03/19/2010,2008 Influenza, High Dose Seasona l, Preservative Free 02/08/2024,02/22/2020 Influenza, High-dose Seasona l, Quadrivalent, Preservative Free 02/08/2022,02/10/2021 Influenza, Seasonal, Quadriv alent, Adjuvanted 02/09/2023 Pneumococcal Conjugate PCV 13 11/11/2019, 017 Pneumococcal Conjugate PCV 20 02/08/2024 Tdap 08/28/2021 Zoster, Recombinant 12/15/2021,10/15/2021 Family History Medical History Relation Name Comments Diabetes Mother Heart failure Mother Melanoma Neg Hx Relation Name Status Comments Brother x1 Father Mother Sister x1 Social History Tobacco Use Types Packs/Day Years Used Date Smoking Tobacco: Some Days Cigarettes Passive Smoke Exposure: Current Smokeless Tobacco: Never Tobacco Cessation:Ready to Q uit: Not Asked; Counseling Given: Not Answered Alcohol Use Standard Drinks/Week Comments Never 0 [...] oz) 10/18/2024 9:18 A M EDT Height 157.5 cm (5' 2 ) 06/04/2024 9:16 AM EST Body Mass Index 27.33 06/04/2024 9:16 AM EST Plan of Treatment Upcoming Encounters Date Type Department Care Team (Late st Contact Info) Description 04/18/2025 9:40 AM EST Office Visit [facility] [address] [place] [address] Leanne Mendes NP [address] [place] [phone] 10/24/2025 10:00 AM EDT Office Visit [facility] [address] [place] [address] Leanne Mendes NP [address] [place] [phone] Health Maintenance Due Date Last Done Comments CT Colonography 1950 FIT-DNA 1950 FIT 1950 FOBT 1950 Sigmoidoscopy 1950 Mammogram 06/13/2025 06/13/2024, 01/28/2023 Medicare Annual Wellness (AWV) 10/18/2025 10/18/2024 , 05/17/2023 Colonoscopy 11/03/2031 11/02/2021 Colorectal Cancer Screening 11/03/2031 Influenza Vaccine Completed 02/08/2024, , 02/08/2022, Additional history exists Pneumococcal Vaccine: 65+ Years Completed 02/08/2024, 11/11/2019, 02/24/2017 Procedures Procedure Name Priority Date/Time Associated Diagnosis Comments MM TOMOSYNTHESIS SCREENING BI 06/13/2024 9:51 AM EST from Last 3 Months or Most Recently Relevant to Health Maintenance Results * MM TOMOSYNTHESIS SCREENING BI (06/13/2024 9:51 AM EST) Anatomical Region Laterality Modality Other 06/13/2024 9:51 AM EST Narrative 06/13/2024 9:52 [place] [address] Mammography Report Signed Patient: SHERRI VILLA MR#: [id number] : 1950 Acct:[id number] Age/Sex: 73 / F ADM Date: 06/13/24 Loc: MAMMO Attending Dr: ANNE ESCAMILLA Ordering Physician: ANNE ESCAMILLA Results: Date of Service: 06/13/24 Follow Up: Procedure(s): MM tomosynthesis screening BI Accession Number(s): [id number] cc: ANNE ESCAMILLA Patient Name: SHERRI VILLA MR#: [id number] : 1950 Exam Date: 06/13/2024 Ordering Doctor: ANNE ESCAMILLA RADIOLOGY REPORT PROCEDURE: MM TOMOSYNTHESIS SCREENING BI COMPARISON: MG MAMM SCREEN 3D TERESA CAD, 10/27/2021. MM TOMOSYNTHESIS SCREENING BI, 11/02/2022. INDICATIONS: Screening Calculator Name NCI Breast Cancer Risk Assessment Tool 5 Year Breast Cancer Risk 1.30% Lifetime Breast Cancer Risk 3.30% Personal Breast Cancer No Personal Ovarian Cancer No Treatments None Family Cancers None LOCATION: [facility] BREAST COMPOSITION: There are scattered areas of fibroglandular density. FINDINGS: DIAGNOSTIC CATEGORY 1--NEGATIVE. NO CHANGE FROM COMPARISON ASSESSMENT. Scattered benign-appearing calcifications are present. RIGHT BREAST: No significant suspicious finding. LEFT BREAST: No significant suspicious finding. RECOMMENDATIONS: ROUTINE MAMMOGRAM AND CLINICAL EVALUATION IN 12 MONTHS. PLEASE NOTE: A NORMAL MAMMOGRAM DOES NOT EXCLUDE THE POSSIBILITY OF BREAST CANCER. A CLINICALLY SUSPICIOUS PALPABLE LUMP SHOULD BE BIOPSIED. Dictated by: Osmany Baires MD on 06/13/2024 at 09:49 Approved by: Osmany Baires MD on 06/13/2024 at 09:51 Dictated By: Osmany Baires M.D. Signed By: 06/13/2452 DD/ TD/TT: Carpet Jack: Procedure Note Radiology, Radiologist, MD - 06/13/2024 [place] [address] Mammography Report Signed Patient: SHERRI VILLA JMR#: [id number] : 1950cct:[id number] Age/Sex: 73 / FADM Date: 06/13/24 Loc: MAMMO Attending Dr: ANNE ESCAMILLA Ordering Physician: Elton ESCAMILLAults: Date of Service: 06/13/24Follow Up: Procedure(s): MM tomosynthesis screening BI Accession Number(s): [id number] cc: ANNE ESCAMILLA Patient Name: SHERRI VILLA MR#: [id number] : 1950 Exam Date: 06/13/2024 Ordering Doctor: ANNE ESCAMILLA RADIOLOGY REPORT PROCEDURE: MM TOMOSYNTHESIS SCREENING BI COMPARISON: MG MAMM SCREEN 3D TERESA CAD, 10/27/2021. MM TOMOSYNTHESIS SCREENING BI, 11/02/2022. INDICATIONS: Screening Calculator Name NCI Breast Cancer Risk Assessment Tool 5 Year Breast Cancer Risk 1.30% Lifetime Breast Cancer Risk 3.30% Personal Breast Cancer No Personal Ovarian Cancer No Treatments None Family Cancers None LOCATION: [facility] BREAST COMPOSITION: There are scattered areas of fibroglandulardensity. FINDINGS: DIAGNOSTIC CATEGORY 1--NEGATIVE. NO CHANGE FROM COMPARISON ASSESSMENT. Scattered benign-appearing calcifications are present. RIGHT BREAST: No significant suspicious finding. LEFT BREAST: No significant suspicious finding. RECOMMENDATIONS: ROUTINE MAMMOGRAM AND CLINICAL EVALUATION IN 12 MONTHS. PLEASE NOTE: A NORMAL MAMMOGRAM DOES NOT EXCLUDE THE POSSIBILITY OFBREAST CANCER. A CLINICALLY SUSPICIOUS PALPABLE LUMP SHOULD BE BIOPSIED. Dictated by: Osmany Baires MD on 06/13/2024 at 09:49 Approved by: Osmany Baires MD on 06/13/2024 at 09:51 Dictated By: Osmany Baires M.D. Signed By:06/13/2452 DD/ 0 TD/TT: Carpet Jack: Anne Escamilla NP [facility] Final Result from Last 3 Months or Most Recently Relevant to Health Maintenance Insurance [employer] MED[employer]ARE [employer]VANTAGE MEDICARE Care Teams Hvac Controls Technician Relationship Specialty Start Date End Date Rocky Gupta MD [address] [place] [address] PCP - General Family Medicine 02/07/24 Anne Escamilla NP [address] [place] [address] Nurse Practitioner Family Medicine 02/07/24
--- OUTSIDE RECORDS SUMMARY | 2024-10-31 08:46 | XMS_ITS | Encounter Summary ---
Author Organization [facility] Address [address] [facility] [place] [address] Care Team Providers Care Rig Builder Name Role Phone Rocky Gupta MD Primary Care Provider [phone] Anne Escamilla MOTOR VEHICLES INSPECTOR Unavailable [phone] Encounter Details Date Type Department Care Team (Late st Contact Info) Description 06/13/2024 Clinisync Result Encounter [facility] External Department Unsolicited Anne Escamilla NP Social History Tobacco Use Types Packs/Day Years Used Date Smoking Tobacco: Some Days Cigarettes Passive Smoke Exposure: Current Smokeless Tobacco: Never Alcohol Use Standard Drinks/Week Comments Never 0 (1 standard drink = 0.6 oz pur e alcohol) caffeine: soda/pop , coffee PHQ-2 Answer Date Recorded Patient Health Questionnaire-2 Score 0 02/21/2024 Comments Unknown Sex and Gender Information Value Date Recorded Sex Assigned at Not on file Legal Sex Female 6:47 PM EDT Gender Identity Not on file Sexual Orientation Not on file documented as of this encounter Plan of Treatment Upcoming Encounters Date Type Department Care Team (Late st Contact Info) Description 04/18/2025 9:40 AM EST Office Visit [facility] [address] [place] [address] Leanne Mendes NP [address] [place] [phone] 10/24/2025 10:00 AM EDT Office Visit [facility] [address] [place] [phone] Leanne Mendes, JOSH [address] [phone] documented as of this encounter Procedures Procedure Name Priority Date/Time Associated Diagnosis Comments MM TOMOSYNTHESIS SCREENING BI 06/13/2024 9:51 AM EST documented in this encounter Results * MM TOMOSYNTHESIS SCREENING BI (06/13/2024 9:51 AM EST) Anatomical Region Laterality Modality Other 06/13/2024 9:51 AM EST Narrative 06/13/2024 9:52 AM EST The [address] [address] Mammography Report Signed Patient: CYDNEY VILLA MR#: [id number] : 1950 Acct:[id number] Age/Sex: 73 / F ADM Date: 06/13/24 Loc: MAMMO Attending Dr: ANNE ESCAMILLA Ordering Physician: ANNE ESCAMILLA Results: Date of Service: 06/13/24 Follow Up: Procedure(s): MM tomosynthesis screening BI Accession Number(s): [id number] cc: ANNE ESCAMILLA Patient Name: CYDNEY VILLA MR#: [id number] : 1950 Exam Date: 06/13/2024 Ordering Doctor: [...] Treatments None Family Cancers None LOCATION: The [facility] BREAST COMPOSITION: There are scattered areas of [...] Dictated By: Osmany Baires M.D. Signed By: 06/13/24 0952 DD/ TD/TT: Bar Gauger And Lubricator Tender: Procedure Note Radiology, Radiologist, MD - 06/13/2024 [place] [address] Mammography Report Signed Patient: CYDNEY VILLA JMR#: [id number] : 1950cct:[id number] Age/Sex: 73 / FADM Date: 06/13/24 Loc: MAMMO Attending Dr: ANNE ESCAMILLA Ordering Physician: Elotn ESCAMILLAults: Date of Service: 06/13/24Follow Up: Procedure(s): MM tomosynthesis screening BI Accession Number(s): [id number] cc: ANNE ESCAMILLA Patient Name: CYDNEY VILLA MR#: [id number] : 1950 Exam Date: 06/13/2024 Ordering Doctor: [...] Treatments None Family Cancers None LOCATION: The [facility] BREAST COMPOSITION: There are scattered areas of [...] Baires M.D. Signed By:06/13/2452 DD/ 0 TD/TT: Bar Gauger And Lubricator Tender: Anne Escamilla MOTOR VEHICLES INSPECTOR [facility] Final Result documented in this encounter Visit Diagnoses Not on filedocumented in this encounter Additional Health Concerns Assessment Noted Time PHQ-9 Depression Total Score: 4 05/17/20 23 3:00 PM EST documented as of this encounter Care Teams Rig Builder Relationship Specialty Start Date End Date Rocky Gupta MD [address] [place] [address] PCP - General Family Medicine 02/07/24 Anne Escamilla NP [address] [place] [address] Nurse Practitioner Family Medicine 02/07/24 documented as of this encounter
--- OUTSIDE RECORDS SUMMARY | 2024-10-31 08:46 | XMS_ITS | Encounter Summary ---
Author Organization [facility] Address [address] [facility] [place] [address] Care Team Providers Care Ambulette Driver Name Role Phone Shaikh MARIAA Ramirez Primary Care Provider [phone] Shaikh MARIAA Ramirez Primary Care Provider [phone] Rocky Gupta MD Primary Care Provider [phone] Anne Connelly NP Unavailable [phone] Encounter Details Date Type Department Care Team (Late st Contact Info) Description 05/27/2023 Clinisync Result Encounter [facility] External Department Unsolicited Shaikh Ramirez MD [address] [place] [address] Social History Tobacco Use Types [...] 04/18/2025 9:40 AM EST [facility] [address] [place] [phone] Leanne Mendes NP [address] [place] [address] 10/24/2025 10:00 AM EDT Office Visit [facility] [address] [place] [phone] Leanne Mendes NP [address] [place] [phone] documented as of this encounter Procedures Procedure Name Priority Date/Time Associated Diagnosis Comments CA HOLTER MONITOR 2-7 DAYS 05/27/2023 8:42 AM EST documented in this encounter Results * CA HOLTER MONITOR 2-7 DAYS (05/27/2023 8:42 AM EST) Anatomical Region Laterality Modality Other 05/27/2023 8:42 AM EST Narrative 05/30/2023 5:56 [place] [address] Cardiology Report Signed Patient: CYDNEY VILLA MR#: [id number] : 1950 Acct:[id number] Age/Sex: 72 / F ADM Date: 05/18/23 Loc: CARD Attending Dr: Shaikh Ashley Pablo Ordering Physician: Shaikh Bev Ramirez Date of Service: 05/18/23 Procedure(s): CA holter montior 2-7 days Accession Number(s): [id number] cc: Shaikh Bev Ramirez The [facility] Test Date: 2023-05-27 Pat Name: CYDNEY VILLA Department: Room: - Gender: Female Vineyardist: : 1950 Requested By: [id number] Order Number: [id number] Reading MD: JULIAN LEE Interpretive Statements Predominant rhythm is sinus with average rate of 77 bpm w/ intermittent atrial fibrillation Tachycardia - max rate of 189 bpm (associated with atrial fibrillation) - 1 episode of PSVT w/ duration of 3 beats Bradycardia - min rate of 56 bpm - longest episode of 14sec with rates between 56-60 bpm Ventricular ectopy - 216 total (<1%) - 184 PVC - 6 couplets - 10 bigeminy NSVT - 1 episode of 16 beat duration Patient triggered events: 1 - associated with chest pain - associated with NSR Impression: Predominant rhythm is sinus with average rate of 77 bpm w/ intermittent atrial fibrillation Fastest rate of 189 bpm (associated with atrial fibrillation) and slowest rate of 56 bpm 184 PVC, 6 couplets, 10 bigeminy 1 episode of NSVT of 16 beat duration Atrial fibrillation intermittent of 9% burden No blocks or pauses Electronically Signed On 05-30-2023 17:55:39 EST by JULIAN LEE Dictated By: Julian Lee D.O. Signed By: 05/30/23175505/30/231755 DD/ 1 TD/TT: Streetsweeper Operator: Procedure Note Radiology, Radiologist, - 05/30/2023 [place] [address] Cardiology Report Signed Patient: CYDNEY VILLA JMR#: [id number] : 1950cct:[id number] Age/Sex: 72 / FADM Date: 05/18/23 Loc: CARD Attending Dr: Shaikh Ashley Pablo Ordering Physician: Shaikh Bev Ramirez Date of Service: 05/18/23 Procedure(s): CA holter montior 2-7 days Accession Number(s): [id number] cc: Shaikh Bev Ramirez [facility] Test Date: 2023-05-27 Pat Name: CYDNEY VILLA Department: Room: - Gender: Female Vineyardist: : 1950 Requested By: [id number] Order Number: [id number] Reading MD: JULIAN LEE Interpretive Statements Predominant rhythm is sinus with average rate of 77 bpm w/ intermittent atrial fibrillation Tachycardia - max rate of 189 bpm (associated with atrial fibrillation) - 1 episode of PSVT w/ duration of 3 beats Bradycardia - min rate of 56 bpm - longest episode of 14sec with rates between 56-60 bpm Ventricular ectopy - 216 total (<1%) - 184 PVC - 6 couplets - 10 bigeminy NSVT - 1 episode of 16 beat duration Patient triggered events: 1 - associated with chest pain - associated with NSR Impression: Predominant rhythm is sinus with average rate of 77 bpm w/ intermittent atrial fibrillation Fastest rate of 189 bpm (associated with atrial fibrillation) and slowest rate of 56 bpm 184 PVC, 6 couplets, 10 bigeminy 1 episode of NSVT of 16 beat duration Atrial fibrillation intermittent of 9% burden No blocks or pauses Electronically Signed On 05-30-2023 17:55:39 EST by JULIAN LEE Dictated By: Julian Lee D.O. Signed By:05/30/23175505/30/231755 DD/ 0842 TD/TT: Streetsweeper Operator: us Shaikh Ashley [facility] Final Result documented in this encounter Visit Diagnoses Not on filedocumented in this encounter Additional Health Concerns Assessment Noted Time PHQ-9 Depression Total Score: 4 05/17/20 23 3:00 PM EST documented as of this encounter Care Teams Ambulette Driver Relationship Specialty Start Date End Date Shaikh Ramirez MD PCP - General Internal Medicine 02/27/23 06/28/23 Shaikh Ramirez MD [address] [place] [phone] PCP - General Internal Medicine 06/29/23 02/06/24 Rocky Gupta MD [address] [place] [phone] PCP - General Family Medicine 02/07/24 Anne Connelly NP [address] [place] [phone] Nurse Practitioner Family Medicine 02/07/24 documented as of this encounter
--- NOTE | 2024-10-31 09:02 | CT_ITS ---
The [address] [address] Patient Name: SHERRI DUNN MRN: [id number] date: 1950 Sex: F Assigned Patient Location: [facility] Current Patient Location: RAD Accession/Order Number: [id number] Exam Date: 10/31/2024 09:55 Report Date: 10/31/2024 10:03 At the request of: RIGO NOGUERA NP Procedure: CT lung screening low-dose LOW-DOSE SCREENING CHEST CT WITHOUT CONTRAST COMPARISON: 05/24/2023 CLINICAL DATA: Current smoker Spiral axial unenhanced low-dose images were obtained through the chest. Images were reviewed using both narrow and wide window settings. This CT exam was performed using one or more following dose reduction techniques: Automated exposure control, adjustment of the mA and/or kV according to patient size, or use of iterative reconstruction technique. The heart is top normal in size. There is no pericardial effusion. Minor coronary disease is seen. There is no aortic aneurysm. There is mild plaque at the aortic arch and proximal great vessels. There are calcified subcarinal and left hilar granulomas. There are also a few benign-appearing noncalcified mediastinal nodes. Slight dextroscoliotic curvature and endplate spurring are seen at the spine. There is obstructive lung disease with airspace lucencies. Minor scarring is visualized at the lung apices. There is also minimal scarring or atelectasis at the lung bases with a new area at the left lower lobe. No other developing consolidation, pleural effusion or pneumothorax is seen. There are left lower lobe calcified granulomas. No developing nodularity is noted. Limited cuts through the upper abdomen show splenic granulomas. CT/CT lung screening low-dose IMPRESSION: OBSTRUCTIVE LUNG DISEASE. GRANULOMATOUS CHANGES. NO DEVELOPING NODULARITY. Lung RADS category 2 - benign Twelve-month low-dose CT follow-up suggested Impression dictated by: Yeni Patino M.D. 10/31/2024 10:03 AM Dictation Location: [place] [address] Electronically authenticated by: [id number] Y Date: 10/31/2024 10:03
--- OUTSIDE RECORDS SUMMARY | 2024-10-31 09:02 | XMS_ITS | CCD ---
Author Organization [facility] Care Team Providers Care Senior Underwriting Assistant Name Role Phone Dede Garcia Unavailable Jaime Paulino Unavailable Gume Ziegler Unavailable DO Gume Ziegler Attending Provider [phone] MD Nevin Ramirez Primary Care Provider [phone] DO Gabriel Qiu Attending Provider FAWWAD, ROONEY [...] Unavailable FAWWAD, ROONEY H Primary Care Unavailable Gracia Woodruff Unavailable Shaikh Ramirez MD Primary Care Provider Ashley LEROY, Rooney Primary Care Provider Ashley LEROY, Primary Care Provider Rocky Gupta MD Primary Care Provider Godwin CORRECTIVE THERAPY AIDE TEACHER, Sonu Unavailable [phone] JOLLY SMITH Referring Unavailable [facility] Primary Care Unavailable Connelly CORRECTIVE THERAPY AIDE TEACHER-C, Sonu Orellana Primary Care Provid er Jaime Paulino MD Attending Provider [phone] Jaime Paulino Admitting Unavailable Jaime Paulino Attending Unavailable Sonu Connelly Primary Care Unavaila ble Sonu Connelly Primary Care Unavaila Jaime Emerson Admitting Unavailable Jaime Paulino Attending Unavailable Sonu Connelly Primary Care Unavaila ble Jaime Paulino Admitting Unavailable Jaime Paulino Attending Unavailable Ashley LEROY, Rooney Primary Care Provider RICHARDSON RINCON Attending Unavailable JOLLY SMITH Referring Unavailable [facility] Primary Care Unavailable JOLLY SMITH Attending Unavailable [facility] Primary Care Unavailable Godwin MORENO, Sonu Unavailable LEANNE MENDES Attending Unavailable CONNELLYSONU FONSECA Attending Unavailabl e CONNELLYSONU FONSECA Attending UnavailGABRIEL Bess Attending Unavailable Allergies Allergy Classification Reported Allergen(s) Allergy Type Date of Onset Reaction(s) Facility (20 sources) Ciprofloxacin; Translations: [CIPROFLOXACIN] Drug Allergy 3 Unknown [place] (20 sources) Codeine; Translations: [CODEINE] Drug Allergy 2 Unknown [facility] (20 sources) metroNIDAZOLE; Translations: [METRONIDAZOLE] Drug Allergy 2 Unknown [facility] (13 sources) Penicillin V Drug Allergy 5 hives [facility] (7 sources) Cefaclor; Translations: [cefaclor] Drug Allergy 2 Heartburn [facility] (7 sources) Dicyclomine; Translations: [dicyclomine] Drug Allergy 2 [facility] (20 sources) Penicillins; Translations: [Penicillins] Allergy to substance 3 [facility] (1 source) Adhesive agent Drug allergy (disorder) [facility] (1 source) Ciprofloxacin Drug Allergy 4 [facility] (1 source) Codeine Drug Allergy 3 [facility] (1 source) Latex Drug allergy (disorder) [facility] (1 source) NSAIDs Drug allergy (disorder) 3 [facility] (8 sources) Penicillin G; Translations: [PENICILLIN G] Drug Allergy 4 [facility] Work Phone: (1 source) Codeine Drug Allergy 5 [facility] (1 source) metroNIDAZOLE Drug Allergy 5 [facility] (1 source) Penicillin Drug Allergy 5 [facility] (1 source) Morphine; Translations: [MORPHINE] Drug Allergy 5 [facility] Repository Medications Current Medications Medication Drug Class(es) Dates Sig (Normalized) Sig (Original) [id number] 200 actuat albuterol 0.09 mg/actuat metered dose inhaler (20 sources) beta2-Adrenergic Agonist Start: 09-03-2024 End: 10-03-2024 take 2 puff(s) by inhalation every six hours for wheezing albuterol HFA 90 mcg/act inhaler Indications: Other emphysema (CMS/HCC) Inhale 2 puffs every 6 (six) hours if needed for wheezing 18 g 1 09/03/2024 10/03/2024 Active Start: 02-21-2024 End: 09-03-2024 take 2 puff(s) by inhalation every four hours for wheezing albuterol HFA 90 mcg/act inhaler Indications: Other emphysema (CMS/HCC) Inhale 2 puffs every 4 (four) hours if needed for wheezing 18 g 2 02/21/2024 09/03/2024 Discontinued (Reorder) Start: 03-02-2023 take 2 puff(s) by in halation every four hours for wheezing albuterol 90 mcg/actuation inhaler Inhale 2 puffs every 4 hours if needed for wheezing. 03/02/2023 Active Start: 01-16-2021 Albuterol Sulf ate (Ventolin Hfa) 90 mcg/actuation Hfa Aerosol Inhaler Active 2 PUFF INHALATION As Directed as needed for Shortness Of Breath January 15, 2021 11:00pm take 2 puff(s) by in halation every [...] 12 tablet 1 06/04/2024 11/19/2024 Active Start: 01-16-2021 take 1 tablet by chi th every week alendronate (Fosamax) 70 mg tablet Take 1 tablet (70 mg) by mouth 1 (one) time per week. 05/29/2023 Active take 1 tablet by chi th in the morning alendronate (Fosamax) 70 MG tablet Take 70 mg by mouth every 7 (seven) days Take in the morning with a full glass of water, on an empty stomach, and do not take anything else by mouth or lie down for the next 30 min. 0 Active Anoro Ellipta 62.5-25 MCG/INH (1 source) take 1 puff(s) by inhalation once daily Anoro Ellipta 62.5-25 MCG/INH 1 puff Inhalation Once a day Active apixaban 5 mg oral tablet (20 sources) Factor Xa Inhibitor Start: End: take 1 tablet by mouth in the morning apixaban (Eliquis) 5 MG tablet Indications: New onset a-fib (CMS/HCC) Take 1 tablet (5 mg) by mouth in the morning and 1 tablet (5 mg) before bedtime. 180 tablet 1 06/04/2024 12/01/2024 Active atorvastatin 10 mg oral tablet (20 sources) HMG-CoA Reductase Inhibitor Start: End: take 1 tablet by mouth once daily atorvastatin (Lipitor) 10 MG tablet Indications: Mixed hyperlipidemia (CMS/HCC) Take 1 tablet (10 mg) by mouth Daily 90 tablet 06/04/2024 Active calcium carbonate 1250 mg / cholecalciferol 200 unt oral tablet (20 sources) Vitamin D Start: End: take 1 tablet by mouth once Calcium Carb-Cholecalciferol (Oyster Shell Calcium w/D) 500-5 MG-MCG tablet Indications: Age-related osteoporosis without current pathological fracture (CMS/HCC) Take 1 tablet by mouth every 12 (twelve) hours 180 tablet 1 06/04/2024 Active Start: 11-15-2023 End: 02-21-2024 take 1 tablet [...] Start: 09-01-2022 take 2 tablets by mo [facility] every twelve hours Calcium 500 With D 500 mg-10 mcg (400 unit) tablet Take 2 tablets by mouth every 12 hours. 09/01/2022 Active Start: 11-03-2021 take 2 tablets by mo [facility] twice daily Calcium Carbonate-Vitamin D3 (Oyster Shell Calcium-Vit D3) 500 mg-10 mcg (400 unit) tablet Active 2 TAB PO Twice daily November 02, 2021 11:00pm cetirizine hydrochloride 10 mg oral tablet (10 sources) Histamine-1 Receptor Antagonist Start: 06-04-2024 End: 12-31-2024 take 1 tablet by mouth once daily cetirizine (ZyrTEC) 10 MG tablet Indications: Seasonal allergic rhinitis due to other allergic trigger Take 1 tablet (10 mg) by mouth Daily 90 tablet 10/02/2024 12/31/2024 Active cholecalciferol 0.025 mg oral tablet (6 sources) Vitamin D Start: 12-11-2021 take 1 tablet by mouth once daily in the morning Cholecalciferol (Vitamin D3) (Vitamin D3) 25 mcg (1,000 unit) Tablet Active 25 MCG PO Every morning December 10, 2021 11:00pm dextromethorphan hydrobromide 30 mg / pyrilamine maleate 30 mg oral tablet (4 sources) Uncompetitive R-sdjaps-I-asparta te Receptor Antagonist, Sigma-1 Agonist Start: 05-12-2024 take 1 tablet by mouth every six hours as needed for cough Pyrilamine-Dextrome thorphan ([place] Dmt) 30-30 mg tablet Active 1 TAB PO Every 6 hours as needed for cough May 12, 2024 12:00am diphenhydrAMINE hydrochloride 20 mg/ml / zinc acetate 1 mg/ml topical cream (5 sources) Histamine-1 Receptor Antagonist End: 02-21-2024 diphenhydrAMINE-zin c acetate cream Apply 1 application topically in the morning and 1 application before bedtime. 02/21/2024 Discontinued (Therapy completed) End: 06-23-2023 diphenhydramine-zinc acetate cream Apply topically once daily at bedtime. 0 06/23/2023 Discontinued (Therapy completed) fluticasone propionate 0.05 mg/actuat metered dose nasal spray (20 sources) Corticosteroid Start: 05-12-2024 take 1 spray(s) nasal route once daily fluticasone (Flonase) 50 MCG/ACT nasal spray Indications: Seasonal allergic rhinitis due to other allergic trigger Administer 1 spray into each nostril Daily Shake gently. Before first use, prime pump. After use, clean tip and replace cap. 48 mL 1 06/04/2024 Active Start: 05-12-2024 Fluticasone Pr opionate 50 mcg/actuation spray,suspension Active 1 SPRAY INTRANASAL Daily as needed for allergy symptoms May 12, 2024 12:00am Start: 03-14-2024 End: 06-04-2024 take 2 spray(s) [...] cap. 16 g 2 02/21/2024 03/14/2024 Discontinued take 2 spray(s) nasa l route once daily fluticasone (Flonase) 50 mcg/actuation nasal spray Administer 2 sprays into each nostril once daily. Shake gently. Before first use, prime pump. After use, clean tip and replace cap. Active End: 02-21-2024 take 2 spray(s) nasal route in the morning fluticasone (Flonase Allergy Relief) 50 MCG/ACT nasal spray Administer 2 sprays into each nostril in the morning. Shake gently. Before first use, prime pump. After use, clean tip and replace cap.. 02/21/2024 Discontinued (Reorder) hydrOXYzine hydrochloride 25 mg oral tablet (1 source) Antihistamine Start: 11-22-2022 take 1 tablet by mouth every eight hours as needed hydrOXYzine HCl 25 MG 1 tablet Orally q8hrs prn itching, rash for 5 days Oct, Active losartan potassium 100 mg oral tablet (20 sources) Angiotensin 2 Receptor Jessie Start: 05-03-2023 End: 08-24-2025 take 1 tablet by mouth once daily losartan (Cozaar) 100 MG tablet Indications: Primary pulmonary hypertension (CMS/HCC) Take 1 tablet (100 mg) by mouth Daily 100 tablet 1 06/04/2024 12/21/2024 Active methylPREDNISolone 4 mg oral tablet (7 sources) Corticosteroid Start: 04-08-2021 Medrol 4 MG as directed Orally Mar, Active metoprolol tartrate 25 mg oral tablet (20 sources) beta-Adrenergic Jessie Start: 06-27-2023 End: 08-24-2025 take 1 tablet by mouth in the morning metoprolol tartrate (Lopressor) 25 MG tablet Indications: New onset a-fib (CMS/HCC) Take 1 tablet (25 mg) by mouth in the morning and 1 tablet (25 mg) before bedtime. 180 tablet 09/03/2024 12/02/2024 Active pantoprazole 40 mg delayed release oral tablet (20 sources) Proton Pump Inhibitor Start: 03-14-2023 End: 12-31-2024 take 1 tablet by mouth in the morning pantoprazole (ProtoNix) 40 MG EC tablet Indications: Gastroesophageal reflux disease without esophagitis Take 1 tablet (40 mg) by mouth in the morning and 1 tablet (40 mg) before bedtime. 180 tablet 09/03/2024 12/02/2024 Active Start: 12-11-2021 End: 07-25-2024 take 1 tablet by mouth once daily in the morning Pantoprazole 40 mg tablet,delayed release (DR/EC) Discontinued 40 MG PO Every morning December 10, 2021 11:00pm July 25, 2024 2:35pm Start: 01-16-2021 End: 11-03-2021 take 1 tablet by mouth once daily Pantoprazole 40 mg tablet,delayed release (DR/EC) Discontinued 40 MG PO Daily January 15, 2021 11:00pm November 03, 2021 12:12pm pramipexole dihydrochloride 0.5 mg oral tablet (20 sources) Nonergot Dopamine Agonist Start: 01-16-2021 End: 12-02-2024 take 1 tablet by mouth at bedtime pramipexole (Mirapex) 0.5 MG tablet Indications: Restless legs syndrome Take 1 tablet (0.5 mg) by mouth at bedtime 90 tablet 09/03/2024 12/02/2024 Active 30 actuat umeclidinium 0.0625 mg/actuat / vilanterol 0.025 mg/actuat dry powder inhaler (20 sources) Anticholinergi c, beta2-Adrenerg ic Agonist Start: 08-29-2023 End: 12-02-2024 take 1 puff(s) by inhalation once daily Umeclidinium-Vilan terol (Anoro Ellipta) 62.5-25 MCG/ACT aerosol powder Indications: Other emphysema (CMS/HCC) Inhale 1 puff Daily 180 each 1 09/03/2024 12/02/2024 Active Start: 06-01-2023 Anoro Ellipta 62.5-25 mcg/actuation blister with device Inhale 1 puff. 06/01/2023 Active Start: 01-16-2021 Umeclidinium-V ilanterol (Anoro Ellipta) 62.5-25 mcg/actuation blister with device Active 1 EACH INHALATION Every morning January 15, 2021 11:00pm Umeclidinium-Luis Alberto anterol (Anoro Ellipta) 62.5-25 MCG/ACT aerosol powder Inhale 0 Active take 1 puff(s) by in halation once daily Anoro Ellipta 62.5-25 MCG/INH 1 puff Inhalation Once a day Active Completed/Discontinued Medications Medication Drug Class(es) Dates Sig (Normalized) Sig (Original) amLODIPine 10 mg oral tablet (6 sources) Dihydropyridine Calcium Channel Jessie Start: 11-03-2021 End: 07-03-2024 take 1 tablet by mouth once daily in the morning Amlodipine 10 mg tablet Discontinued 10 MG PO Every morning November 02, 2021 11:00pm July 03, 2024 12:50pm azithromycin 250 mg oral tablet (4 sources) Macrolide Antimicrobial Start: 05-12-2024 End: 06-20-2024 Azithromycin 250 mg tablet Discontinued 0 PO .COMPLEX 6 May 12, 2024 12:00am June 20, 2024 1:10pm For 250 mg dose pack: take 500 mg today (day 1), then 250 mg for 4 days (days 2-5) PO ciprofloxacin 500 mg oral tablet (8 sources) [...] a day for 30 day(s) Nov, Not-Taking docusate sodium 100 mg oral capsule (14 sources) Start: 12-11-2021 End: 05-12-2024 take 1 capsule by mouth once daily as needed for constipation Docusate Sodium (Colace) 100 mg Capsule Discontinued 100 MG PO Daily as needed for Constipation December 10, 2021 11:00pm May 12, 2024 2:12pm Start: 12-18-2020 take 1 capsule by [facility] every twelve hours Colace 100 MG 1 CAPSULE Orally TWICE A DAY for 30 day(s) Nov, Not-Taking hydrocortisone 25 mg/ml topical cream (14 sources) Corticosteroid Start: 10-29-2021 Anusol-HC 2.5 % 1 application Rectal Twice a day for 14 days Oct, Not-Taking Start: 12-18-2020 Hydrocortisone Acetate 25 MG 1 suppository Rectal AT BEDTIME for 14 days Nov, Not-Taking lidocaine 50 mg/ml rectal cream (6 sources) Antiarrhythmic, Amide Local Anesthetic Start: 01-16-2021 End: 11-03-2021 Lidocaine (Recticare) 5 % cream Discontinued 1 APPLIC TOPICAL Four times daily as needed for pain January 16, 2021 12:02pm November 03, 2021 12:14pm metroNIDAZOLE 500 mg oral tablet (9 sources) [...] omeprazole 40 mg delayed release oral capsule (6 sources) Proton Pump Inhibitor Start: 11-03-2021 End: 12-11-2021 take 1 capsule by mouth once daily Omeprazole 40 mg capsule,delayed release(DR/EC) Discontinued 40 MG PO Daily November 02, 2021 11:00pm December 11, 2021 7:23am predniSONE 20 mg oral tablet (5 sources) Start: 03-17-2024 End: 05-12-2024 take 3 tablets by mouth once daily, then take 2 tablets by mouth once daily, then take 1 tablet by mouth once daily Prednisone 20 mg tablet Discontinued 20 MG PO .COMPLEX March 16, 2024 11:00pm May 12, 2024 2:13pm Take 3 tabs po daily x 3 days, then take 2 tabs po daily x 3 days, then take 1 tab po daily x 3 days. Start: 11-22-2022 predniSONE 20 MG take 3 tabs daily x 3 days, then take 2 tabs daily x 3 days Orally Once a day for 6 days Oct, Active Tc-99m tetrofosmin (Myoview) injection 34.4 millicurie (1 source) Start: 07-07-2023 End: 07-07-2023 Tc-99m tetrofosmin (Myoview) injection 34.4 millicurie traMADol hydrochloride 50 mg oral tablet (6 sources) Opioid Agonist Start: 12-23-2021 End: 05-12-2024 take 0.5-1 tablets by mouth every six hours as needed for pain Tramadol (Ultram) 50 mg tablet Discontinued 50 MG PO Q6H as needed for pain 26 12December 22, 2021 11:00pm May 12, 2024 2:13pm /2 - 1 tab po q 6 hours prn pain Triamcinolone (15 sources) Corticosteroid Start: 03-11-2021 Kenalog -40 mg Feb, 20 mg Start: 12-31-2019 Kenalog -40 mg Dec, 40 mg Start: 04-23-2019 Kenalog -40 mg Mar, 40 mg Problems Active Problems Problem Classification Problem Date Documented Da te Episodic/Chronic Acute and unspecified renal failure (1 source) Acute kidney failure, unspecified; Translations: [ACUTE KIDNEY FAILURE UNSPECIFIED] Onset: 2 Episodic Allergic reactions (5 sources) Idiopathic urticaria; Translations: [Contact dermatitis] Episodic Cardiac dysrhythmias (20 sources) Atrial fibrillation; Translations: [Unspecified atrial fibrillation] Onset: 3 Resolved: 4 06-23-2023 Chronic Chronic obstructive pulmonary disease and bronchiectasis (20 sources) Pulmonary emphysema; Translations: [Other emphysema] Onset: [...] source) Dehydration; Translations: [DEHYDRATION] Onset: 2 Episodic Gastroduodenal ulcer (except hemorrhage) (8 sources) H/O: peptic ulcer; Translations: [Personal history of peptic ulcer disease] 06-20-2024 Episodic Gastrointestinal hemorrhage (9 sources) Melena; Translations: [Hematochezia] Onset: 2 Resolved: 2 Episodic Comment on above: Problem List clean-u p per request of Phys. EHR Cmte Nonspecific chest pain (11 sources) Chest pain; Translations: [Chest pain, unspecified] Onset: 4 06-23-2023 Episodic Osteoarthritis (20 sources) Arthritis of left wrist; Translations: [Primary osteoarthritis, left wrist] Onset: 1 Resolved: 1 Chronic Osteoporosis (16 sources) Senile osteoporosis; Translations: [Age-related osteoporosis without current pathological fracture] Onset: 4 02-21-2024 Chronic Other aftercare (1 source) Other assisted (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 therapy; Translations: [OTH PHOTONICS TECHNICIAN CURRENT DRUG THERAPY] Onset: 2 Episodic Other aftercare (10 sources) Long-term current use of anticoagulant; Translations: [[facility] (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 anticoagulants] Onset: 4 06-23-2023 [...] Other hereditary and degenerative nervous system conditions (17 sources) Restless legs; Translations: [Restless legs syndrome] Onset: 3 05-17-2023 Chronic Other nervous system disorders (2 sources) Paresthesia of upper limb; Translations: [Paresthesia of skin] Onset: 5 08-24-2024 Episodic Other nervous system disorders (2 sources) Paresthesia of skin; Translations: [Paresthesia of skin] Onset: 5 Episodic Other nutritional; endocrine; and metabolic disorders (2 sources) Overweight in adulthood with body mass index of 25 or more but less than 30; Translations: [Body mass index (BMI) 26.0-26.9, adult] Onset: 5 08-24-2024 Episodic Other nutritional; endocrine; and metabolic disorders (2 sources) Body mass index (BMI) 26.0-26.9, adult; Translations: [Body mass index (BMI) 26.0-26.9, adult] Onset: Episodic Other upper respiratory disease (5 sources) Seasonal allergic rhinitis; Translations: [Other allergic rhinitis] 03-14-2024 Chronic Pneumonia (except that caused by tuberculosis or sexually transmitted disease) (8 sources) Pneumonia; Translations: [Pneumonia, unspecified organism] 05-12-2024 Episodic Pulmonary heart disease (2 sources) Idiopathic pulmonary arterial hypertension ; Translations: [Primary pulmonary hypertension] 06-04-2024 Chronic Substance-related disorders (20 sources) Smokes tobacco daily; Translations: [Nicotine dependence, unspecified, uncomplicated] Onset: 3 06-23-2023 Chronic Past or Other Problems Problem Classification Problem Date Documented Da te Episodic/Chronic Abdominal pain (20 sources) Abdominal pain; Translations: [Unspecified abdominal pain] Onset: 02-21-2024 11-05-2021 Episodic Comment on above: Problem List clean-u p per request of Phys. EHR Cmte Administrative/social admission (4 sources) Follow-up status; Translations: [Person consulting for explanation of examination or test findings] Onset: 07-11-2023 07-11-2023 Episodic Hemorrhoids (20 sources) Hemorrhoids; Translations: [Unspecified hemorrhoids] Onset: 06-29-2023 12-23-2021 Episodic Comment on above: Problem List clean-u p per request of Phys. 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] Onset: 06-23-2023 Episodic Other bone disease and musculoskeletal deformities (14 sources) Osteopenia; Translations: [Other specified disorders of bone density and structure, multiple sites] Onset: 05-17-2023 05-17-2023 Episodic Other circulatory disease (4 sources) Elevated blood-pressure reading, without diagnosis of hypertension; Translations: [ELEVATED BP READING W/O DX HTN] Onset: 10-13-2021 Episodic Other connective tissue disease (3 sources) Radial styloid tenosynovitis [de Quervain]; Translations: [De Quervain's tenosynovitis, left M65.4] Onset: 03-11-2021 Resolved: 05-06-2021 Episodic Other non-traumatic joint disorders (3 sources) Pain in left wrist; Translations: [Left wrist pain M25.532] Onset: 03-11-2021 Resolved: 05-06-2021 Episodic Other screening for suspected conditions (not mental disorders or infectious disease) (20 sources) Encounter for screening mammogram for malignant neoplasm of breast; Translations: [Patient encounter status] Onset: 10-27-2021 Episodic Unclassified (6 sources) Onset: 06-23-2023 Resolved: 01-09-2024 06-23-2023 Results Test Name Value Interpretation Reference Range Facility Abstracton 10-16-2024 Abstract [id number] Cydney Villa 1950 Provider Department Center 10/16/2024 GABRIEL FRANCIS [facility] AUTH ME Medical C Family History Problem Relation Age of Onset Coronary artery disease Mother Other Father Cirrhosis Brother Family Status - Relation Status Age at Mother Father Brother Normal [facility] Prep for Procedureon 025 Prep for Procedure [id number] Cydney Vlila 1950 Provider Department Center 08/16/2024 1987-REBEKAH NEGRON [facility] VASC LAB ME HeartVAS Family History Problem Relation Age of Onset Coronary artery disease Mother Other Father Cirrhosis Brother Family Status - Relation Status Age at Mother Father Brother Normal [facility] Office Visiton 08-07-2024 Follow-up visit [id number] Cydney Villa 1950 Date Provider Department Center 08/07/2024 GABRIEL FRANCIS BRYANT [facility] Family History Problem Relation Age of Onset Coronary artery disease Mother Other Father Cirrhosis Brother Family Status - Relation Status Age at Mother Father Brother Level of Service:30752 MO OFFICE/OUTPATIENT NEW MODERATE MDM 45 MINUTES Normal [facility] Orders Onlyon 08-07-2024 Orders Only [id number] Cydney Villa 1950 F Date Provider Department Center 08/07/2024 MARY ARAGON BRYANT [facility] Family History Problem Relation Age of Onset Coronary artery disease Mother Other Father Cirrhosis Brother Family Status - Relation Status Age at Mother Father Brother Normal [facility] US abdomen limitedon 025 US abdomen limited [facility] [place] [address] Ultrasound Report Signed Patient: Cydney Villa MR#: [id number] : 1950 Acct:[id number] Age/Sex: 73 / F ADM Date: 06/27/24 Loc: Room: Type: [facility] Attending Dr: Jaime Paulino MD Ordering Provider: Jaime Paulino MD Date of Service: 06/27/24 US/US abdomen limited: R10.9 - Unspecified abdominal pain Copies to: Jaime Paulino MD LIMITED ABDOMINAL ULTRASOUND: CLINICAL HISTORY: Abdominal pain COMPARISON: None TECHNIQUE: Grayscale and color Doppler images of the right upper quadrant organs were obtained. FINDINGS: Pancreas: Visualized portions appear unremarkable. Liver: Unremarkable. Gallbladder: Removed. CBD: 4.8 mm US/US abdomen limited IMPRESSION: NO ACUTE PROCESS. . Impression dictated by: Vincenzo Lackey Jr., D.O.06/27/2024 9:35 AM Dictation Location: [place] [address] Tech: Loli Guerra Transcribed By: BEN 06/27/2435 Dictated By: Vincenzo Lackey Jr, DO 06/27/2434 Signed By: 06/27/24934 Normal [facility] Alanine aminotransferase [En zymatic activity/volume] in Serum or PlasmaOrdered By: Jaime Paulino on 06-20-2024 ALT [Catalytic activity/Vol] Alanine aminotransferase [Enzymatic activity/volume] in Serum or Plasma 7-52 [facility] Albumin [Mass/volume] in Ser um or Plasma by Bromocresol green (BCG) dye binding methoOrdered By: Jaime Paulino on 06-20-2024 Albumin BCG dye [Mass/Vol] Albumin [Mass/volume] in Serum or Plasma by Bromocresol green (BCG) dye binding metho 3.5-5.7 [facility] Alkaline phosphatase [Enzyma tic activity/volume] in Serum or PlasmaOrdered By: Jaime Paulino on 06-20-2024 ALP [Catalytic activity/Vol] Alkaline phosphatase [Enzymatic activity/volume] in Serum or Plasma 34-104 [facility] Aspartate aminotransferase [ Enzymatic activity/volume] in Serum or PlasmaOrdered By: Jaime Paulino on 06-20-2024 AST [Catalytic activity/Vol] Aspartate aminotransferase [Enzymatic activity/volume] in Serum or Plasma 13-39 [facility] Basophils Auto (Bld) [#/Vol] Ordered By: Jaime Paulino on 06-20-2024 Basophils (Bld) [#/Vol] Automated basoph il count 0.0-0.2 [facility] Basophils/100 WBC Auto (Bld) Ordered By: Jaime Paulino on 06-20-2024 Basophils/100 WBC (Bld) Automated basophil % . [facility] Bilirubin.total [Mass/volume ] in Serum or PlasmaOrdered By: Jaime Paulino on 06-20-2024 Bilirubin [Mass/Vol] Bilirubin.total [Mass/volume] in Serum or Plasma 0.3-1.0 [facility] Calcium [Mass/volume] in Ser um or PlasmaOrdered By: Jaime Paulino on 06-20-2024 Calcium [Mass/Vol] Calcium [Mass/volume] in Serum or Plasma 8.6-10.3 [facility] Carbon dioxide, total [Moles /volume] in Serum or PlasmaOrdered By: Jaime Paulino on 06-20-2024 CO2 [Moles/Vol] Carbon dioxide, total [Moles/volume] in Serum or Plasma 21.0-31.0 [facility] Chloride [Moles/volume] in S mana or PlasmaOrdered By: Jaime Paulino on 06-20-2024 Chloride [Moles/Vol] Chloride [Moles/volume] in Serum or Plasma 98-107 [facility] Complete Blood Count Auto Di ffon 06-20-2024 Basophils (Bld) [#/Vol] 0.1 10*3/uL Normal 0.0-0.2 [facility] Comment on above: Result Comment: PERF ORMED BY: [place] [address] PATHOLOGIST CLAIMS ADJUSTER SUPERVISOR VALDO ESCOBAR M.D. Performed By: #### C MP, CBC #### [address] Basophils/100 WBC (Bld) 0.9 % Normal . [facility] Comment on above: Performed By: #### C MP, CBC #### [address] Eosinophils (Bld) [#/Vol] 0.1 10*3/uL Normal 0.0-0.45 [facility] Comment on above: Performed By: #### C MP, CBC #### [address] Eosinophils/100 WBC (Bld) 1.6 % Normal . [facility] Comment on above: Performed By: #### C MP, CBC #### [address] Erythrocyte distribution width (RBC) [Ratio] 13.1 % Normal 11.9-15.3 [facility] Comment on above: Performed By: #### C MP, CBC #### [address] Hematocrit (Bld) [Volume fraction] 38.8 % Normal 34.0-46.4 [facility] Comment on above: Performed By: #### C MP, CBC #### [address] Hemoglobin (Bld) [Mass/Vol] 12.9 g/dL Normal 11.8-15.4 [facility] Comment on above: Performed By: #### C MP, CBC #### [address] Lymphocytes (Bld) [#/Vol] 2.2 10*3/uL Normal 1.00-4.8 [facility] Comment on above: Performed By: #### C MP, CBC #### [address] Lymphocytes/100 WBC (Bld) 25.2 % Normal . [facility] Comment on above: Performed By: #### C MP, CBC #### [address] MCH (RBC) [Entitic mass] 29.9 pg Normal 24.7-34.3 [facility] Comment on above: Performed By: #### C MP, CBC #### [address] MCV (RBC) [Entitic vol] 90.0 fL Normal 80-100 [facility] Comment on above: Performed By: #### C MP, CBC #### [address] Mean Corpuscular HGB Conc 33.3 g/dL Normal 32.0-35.0 [facility] Comment on above: Performed By: #### C MP, CBC #### [place] [address] [place] Monocytes (Bld) [#/Vol] 0.5 10*3/uL Normal 0.0-0.8 [facility] Comment on above: Performed By: #### C MP, CBC #### [place] [address] [place] Monocytes/100 WBC (Bld) 5.7 % Normal . [facility] Comment on above: Performed By: #### C MP, CBC #### [address] Neutrophils (Bld) [#/Vol] 5.9 10*3/uL Normal 1.8-7.7 [facility] Comment on above: Performed By: #### C MP, CBC #### [facility] [address] Neutrophils/100 WBC (Bld) 66.6 % Normal . [facility] Comment on above: Performed By: #### C MP, CBC #### [facility] [address] NRBC% 0.0 /100{WBC} Normal 0-0.[address] [facility] Comment on above: Performed By: #### C MP, CBC #### [facility] [address] Platelet mean volume (Bld) [Entitic vol] 9.1 fL Normal 6.3-10.7 The [facility] Comment on above: Performed By: #### C MP, CBC #### [facility] [address] Platelets (Bld) [#/Vol] 291 10*3/uL Normal 150-450 [facility] Comment on above: Performed By: #### C MP, CBC #### [facility] [address] RBC (Bld) [#/Vol] 4.31 10*6/uL Normal 3.60-5.[address] [facility] Comment on above: Performed By: #### C MP, CBC #### [facility] [address] WBC (Bld) [#/Vol] 8.9 10*3/uL Normal 3.8-11.6 The [facility] Comment on above: Performed By: #### C MP, CBC #### [facility] [address] Comprehensive Metabolic Pane tk 06-20-2024 Albumin [Mass/Vol] 4.2 g/dL Normal 3.5-5.7 The [facility] Comment on above: Performed By: #### C MP, CBC #### [facility] [address] Albumin/Globulin [Mass ratio] 1.8 {ratio} Normal [facility] Comment on above: Performed By: #### C MP, CBC #### [address] ALP [Catalytic activity/Vol] 69 U/L Normal 34-104 [facility] Comment on above: Result Comment: PERF ORMED BY: [place] [address] PATHOLOGIST CLAIMS ADJUSTER SUPERVISOR VALDO ESCOBAR M.D. Performed By: #### C MP, CBC #### [address] ALT [Catalytic activity/Vol] 16 U/L Normal 7-52 [facility] Comment on above: Performed By: #### C MP, CBC #### [address] Anion gap [Moles/Vol] 12.0 mmol/L Normal 6.0-15.0 [facility] Comment on above: Performed By: #### C MP, CBC #### [address] AST [Catalytic activity/Vol] 18 U/L Normal 13-39 [facility] Comment on above: Performed By: #### C MP, CBC #### [place] [address] [place] Bilirubin [Mass/Vol] 0.4 mg/dL Normal 0.3-1.0 [facility] Comment on above: Performed By: #### C MP, CBC #### [place] [address] [place] Calcium [Mass/Vol] 9.7 mg/dL Normal 8.6-10.3 The [facility] Comment on above: Performed By: #### C MP, CBC #### [place] [address] [place] Chloride [Moles/Vol] 104 mmol/L Normal 98-107 [facility] Comment on above: Performed By: #### C MP, CBC #### [address] CO2 [Moles/Vol] 28.4 mmol/L Normal 21.0-31.0 The [facility] Comment on above: Performed By: #### C MP, CBC #### [address] Creatinine [Mass/Vol] 0.77 mg/dL Normal 0.60-1.20 [facility] Comment on above: Performed By: #### C MP, CBC #### [place] [address] [place] GFR/1.73 sq M.predicted MDRD (S/P/Bld) [Vol rate/Area] mL/min/{1.73_m2} Normal [facility] Comment on above: Performed By: #### C MP, CBC #### [address] Globulin (S) [Mass/Vol] 2.4 g/dL Normal T [facility] Comment on above: Performed By: #### C MP, CBC #### [address] Glucose [Mass/Vol] 85 mg/dL Normal 70-100 [facility] Comment on above: Result Comment: [place] Glucose Reference Range is dependent on time and content of last meal. Glucose of more than 200 mg/dL in a nonstressed, ambulatory subject supports the diagnosis of Diabetes Mellitus. ADA recommended reference range Performed By: #### C MP, CBC #### [address] Potassium [Moles/Vol] 4.4 mmol/L Normal 3.5-5.1 [facility] Comment on above: Performed By: #### C MP, CBC #### [place] [address] [place] Protein [Mass/Vol] 6.6 g/dL Normal 6.4-8.9 [facility] Comment on above: Performed By: #### C MP, CBC #### [place] [address] [place] Sodium [Moles/Vol] 140 mmol/L Normal 136-145 [facility] Comment on above: Performed By: #### C MP, CBC #### [facility] [address] Urea nitrogen [Mass/Vol] 8 mg/dL Normal 7-25 [facility] Comment on above: Performed By: #### C MP, CBC #### [facility] [address] Creatinine [Mass/volume] in Serum or PlasmaOrdered By: Jaime Paulino on 06-20-2024 Creatinine [Mass/Vol] Creatinine [Mass/volume] in Serum or Plasma 0.60-1.20 [facility] Eosinophils Auto (Bld) [#/Vo l]Ordered By: Jaime Paulino on 06-20-2024 Eosinophils (Bld) [#/Vol] Automated eosinophil count 0.0-0.45 [facility] Eosinophils/100 WBC Auto (Bl d)Ordered By: Jaime Paulino on 06-20-2024 Eosinophils/100 WBC (Bld) Automated eosinophil % . [facility] Erythrocyte distribution wid th Auto (RBC) [Ratio]Ordered By: Jaime Paulino on 06-20-2024 Erythrocyte distribution width (RBC) [Ratio] Erythrocyte distribution width [Ratio] by Automated count 11.9-15.3 [facility] Globulin Calc (S) [Mass/Vol] Ordered By: Jaime Paulino on 06-20-2024 Globulin (S) [Mass/Vol] Serum globulin measurement by calculation (mass/volume) [facility] Glucose [Mass/volume] in Ser um or PlasmaOrdered By: Jaime Paulino on 06-20-2024 Glucose [Mass/Vol] Glucose [Mass/volume] in Serum or Plasma 70-100 [facility] Comment on above: ADA recommended refe rence rangeRandom Glucose Reference Range is dependent on time and content of last meal. Glucose of more than 200 mg/dL in a nonstressed, ambulatory subject supports the diagnosis of Diabetes Mellitus. Hematocrit Auto (Bld) [Volum e fraction]Ordered By: Jaime Paulino on 06-20-2024 Hematocrit (Bld) [Volume fraction] Hematocrit [Volume Fraction] of Blood by Automated count 34.0-46.4 [facility] Hemoglobin [Mass/volume] in BloodOrdered By: Jaime Paulino on 06-20-2024 Hemoglobin (Bld) [Mass/Vol] Hemoglobin [Mass/volume] in Blood 11.8-15.4 [facility] Leukocytes [#/volume] correc brittany for nucleated erythrocytes in Blood by Automated counOrdered By: Jaime Paulino on 06-20-2024 WBC corrected for nucl RBC Auto (Bld) [#/Vol] Leukocytes [#/volume] corrected for nucleated erythrocytes in Blood by Automated coun 3.8-11.6 [facility] Lymphocytes Auto (Bld) [#/Vo l]Ordered By: Jaime Paulino on 06-20-2024 Lymphocytes (Bld) [#/Vol] Lymphocytes [#/volume] in Blood by Automated count 1.00-4.8 [facility] Lymphocytes/100 WBC Auto (Bl d)Ordered By: Jaime Paulino on 06-20-2024 Lymphocytes/100 WBC (Bld) Lymphocytes/100 leukocytes in Blood by Automated count . [facility] MCH Auto (RBC) [Entitic mass ]Ordered By: Jaime Paulino on 06-20-2024 MCH (RBC) [Entitic mass] MCH [Entitic ma ss] by Automated count 24.7-34.3 [facility] MCHC Auto (RBC) [Mass/Vol]Or dered By: Jaime Paulino on 06-20-2024 MCHC (RBC) [Mass/Vol] MCHC [Mass/volume] by Automated count 32.0-35.0 [facility] MCV Auto (RBC) [Entitic vol] Ordered By: Jaime Paulino on 06-20-2024 MCV (RBC) [Entitic vol] MCV [Entitic vol ume] by Automated count 80-100 [facility] Monocytes Auto (Bld) [#/Vol] Ordered By: Jaime Paulino on 06-20-2024 Monocytes (Bld) [#/Vol] Automated blood monocyte count 0.0-0.8 [facility] Monocytes/100 WBC Auto (Bld) Ordered By: Jaime Paulino on 06-20-2024 Monocytes/100 WBC (Bld) Automated monocyte % . [facility] Neutrophils Auto (Bld) [#/Vo l]Ordered By: Jaime Paulino on 06-20-2024 Neutrophils (Bld) [#/Vol] Neutrophils [#/volume] in Blood by Automated count 1.8-7.7 [facility] Neutrophils/100 WBC Auto (Bl d)Ordered By: Jaime Paulino on 06-20-2024 Neutrophils/100 WBC (Bld) Automated neutrophil % . [facility] No Panel InformationOrdered By: Jaime Paulino on 06-20-2024 Estimated GFR (CKD-EPI) > 60.0 mL/Min [facility] Creatinine Clearance (Chem N/A [facility] Nucleated erythrocytes [Pres ence] in Blood by Automated countOrdered By: Jaime Paulino on 06-20-2024 Nucleated RBC Auto Ql (Bld) Nucleated erythrocytes [Presence] in Blood by Automated count 0-0.5 [facility] Platelet mean volume Auto (B ld) [Entitic vol]Ordered By: Jaime Paulino on 06-20-2024 Platelet mean volume (Bld) [Entitic vol] Platelet mean volume [Entitic volume] in Blood by Automated count 6.3-10.7 [facility] Platelets Auto (Bld) [#/Vol] Ordered By: Jaime Paulino on 06-20-2024 Platelets (Bld) [#/Vol] Platelets [#/vol ume] in Blood by Automated count 150-450 [facility] Potassium [Moles/volume] in Serum or PlasmaOrdered By: Jaime Paulino on 06-20-2024 Potassium [Moles/Vol] Potassium [Moles/volume] in Serum or Plasma 3.5-5.1 [facility] Protein [Mass/volume] in Ser um or PlasmaOrdered By: Jaime Paulino on 06-20-2024 Protein [Mass/Vol] Protein [Mass/volume] in Serum or Plasma 6.4-8.9 [facility] RBC Auto (Bld) [#/Vol]Ordere d By: Jaime Paulino on 06-20-2024 RBC (Bld) [#/Vol] Erythrocytes [#/volume] in Blood by Automated count 3.60-5.00 [facility] Serum or plasma albumin/glob ulin mass ratioOrdered By: Jaime Paulino on 06-20-2024 Albumin/Globulin [Mass ratio] Serum or plasma albumin/globulin mass ratio [facility] Serum or plasma anion gap de terminationOrdered By: Jaime Paulino on 06-20-2024 Anion gap [Moles/Vol] Serum or plasma anion gap determination 6.0-15.0 [facility] Sodium [Moles/volume] in Ser um or PlasmaOrdered By: Jaime Paulino on 06-20-2024 Sodium [Moles/Vol] Sodium [Moles/volume] in Serum or Plasma 136-145 [facility] Urea nitrogen [Mass/volume] in Serum or PlasmaOrdered By: Jaime Paulino on 06-20-2024 Urea nitrogen [Mass/Vol] Urea nitrogen [Mass/volume] in Serum or Plasma 7-25 [facility] WBC Auto (Bld) [#/Vol]Ordere d By: Jaime Paulino on 06-20-2024 WBC (Bld) [#/Vol] Leukocytes [#/volume] in Blood by Automated count 3.8-11.6 [facility] ALL CBC WITH AUTO DIFFon BASOPHILS ABSOLUTE AUTO 0.1 N [facility] Basophils/100 WBC (Bld) 0.6 % 0.2 - 2.0 % [facility] Eosinophils/100 WBC (Bld) 1.7 % 0.9 - 7.0 % [facility] Erythrocyte distribution width (RBC) [Ratio] 12.9 % 11.0 - 15.0 % [facility] Hematocrit (Bld) [Volume fraction] 42.5 % 36.0 - 48.0 % [facility] Hemoglobin (Bld) [Mass/Vol] 13.7 g/dL 12.0 - 16.0 g/dL [facility] IMMATURE GRANULOCYTES ABS AUTO 0.03 [facility] Immature granulocytes/100 WBC (Bld) 0.3 % 0.0 - 0.5 % [facility] Interpretation and review of laboratory results Abnormal [facility] LYMPHOCYTES ABSOLUTE AUTO 2 [facility] Lymphocytes/100 WBC (Bld) 21.1 % 20.5 - 60.0 % [facility] MCH (RBC) [Entitic mass] 30 pg 26. 7 - 34.0 pg [facility] MCHC (RBC) [Mass/Vol] 32.2 g/dL 29.9 - 35.2 g/dL [facility] MCV (RBC) [Entitic vol] 93 fL 81.0 - 99.0 fL [facility] MONOCYTES ABSOLUTE AUTO 0.7 N [facility] Monocytes/100 WBC (Bld) 7.6 % 1.7 - 12.0 % [facility] NEUTROPHILS ABSOLUTE AUTO 6.7 High [facility] Neutrophils/100 WBC (Bld) 68.7 % 43.0 - 75.0 % [facility] Platelet mean volume (Bld) [Entitic vol] 9.7 fL 9.5 - 13.5 fL [facility] EO # 0.2 [facility] PLT [address] [facility] RBC 4.57 [facility] WBC 9.7 [facility] ALL CBC WITH AUTO DIFFon BASOPHILS ABSOLUTE AUTO 0.1 N [facility] Basophils/100 WBC (Bld) 0.7 % 0.2 - 2.0 % [facility] Eosinophils/100 WBC (Bld) 1.9 % 0.9 - 7.0 % [facility] Erythrocyte distribution width (RBC) [Ratio] 13.7 % 11.0 - 15.0 % [facility] Hematocrit (Bld) [Volume fraction] 44.8 % 36.0 - 48.0 % [facility] Hemoglobin (Bld) [Mass/Vol] 14.3 g/dL 12.0 - 16.0 g/dL [facility] IMMATURE GRANULOCYTES ABS AUTO 0.02 [facility] Immature granulocytes/100 WBC (Bld) 0.3 % 0.0 - 0.5 % [facility] LYMPHOCYTES ABSOLUTE AUTO 2.4 [facility] Lymphocytes/100 WBC (Bld) 31.9 % 20.5 - 60.0 % [facility] MCH (RBC) [Entitic mass] 30.6 pg 26. 7 - 34.0 pg [facility] MCHC (RBC) [Mass/Vol] 31.9 g/dL 29.9 - 35.2 g/dL [facility] MCV (RBC) [Entitic vol] 95.7 fL 81.0 - 99.0 fL [facility] MONOCYTES ABSOLUTE AUTO 0.5 N [facility] Monocytes/100 WBC (Bld) 7.0 % 1.7 - 12.0 % [facility] NEUTROPHILS ABSOLUTE AUTO 4.4 [facility] Neutrophils/100 WBC (Bld) 58.2 % 43.0 - 75.0 % [facility] Platelet mean volume (Bld) [Entitic vol] 10.7 fL 9.5 - 13.5 fL [facility] TB EO # 0.1 [facility] TB PLT [address] [facility] RBC 4.68 [facility] WBC 7.5 [facility] NM Heart Perfusion W stress and W radionuclide Jesse 07-07-2023 Normal Lexiscan Myoview cardiac perfusion stress test. No evidence of ischemia or myocardial infarction by perfusion imaging. Normal left ventricular systolic function, ejection fraction 77%. No previous studies are available for comparison. Signed by: Luisa Cabrera 07/07/2023 4:22 PM Dictation workstation: [id number] MMODAL Interpreted By: Luisa Cabrera and Beal Gina STUDY: MYOCARDIAL PERFUSION STRESS TEST WITH LEXISCAN Performing facility: [facility], [address] [place] [address], [address], [address] Provider: Jolly Smith MD, FACC PCP: Dr. Reyna RAMIREZ Supervising provider: Jolly Smith MD, FACC INDICATION: Atherosclerosis of coronary artery of [place] heart without angina pectoris, unspecified vessel or lesion type I25.10 (ICD-10-CM); Chest pain, unspecified type R07.9 (ICD-10-CM) HISTORY: Gender: F; Age: 72 y/o ; Height: HT 157.5 cm cm; Weight: WT 65.318 kg kg. CAD; Chest Pain; HTN; COPD; SOB; Arrhythmias; AFib, Palpitations; Currently smoking. COMPARISON: No comparison. ACCESSION NUMBER(S): [id number] ORDERING CLINICIAN: JOLLY SMITH TECHNIQUE: ONE DAY [...] evidence of motion artifact. MMODAL Luisa Cabrera MD - 07/07/2023 Interpreted By: Luisa Cabrera and Beal Gina STUDY: MYOCARDIAL PERFUSION STRESS TEST WITH LEXISCAN Performing facility: [facility], [address] [place] [address], [address], [address] Provider: Jolly Smith MD, [facility] PCP: Dr. Reyna RAMIREZ Supervising provider: Jolly Smith MD, [facility] INDICATION: Atherosclerosis of coronary artery of [place] heart without angina pectoris, unspecified vessel or lesion type I25.10 (ICD-10-CM); Chest pain, unspecified type R07.9 (ICD-10-CM) HISTORY: Gender: F; Age: 72 y/o ; Height: HT 157.5 cm cm; Weight: WT 65.318 kg kg. CAD; Chest Pain; HTN; COPD; SOB; Arrhythmias; AFib, Palpitations; Currently smoking. COMPARISON: No comparison. ACCESSION NUMBER(S): [id number] ORDERING CLINICIAN: JOLLY SMITH TECHNIQUE: ONE DAY [...] Luisa Cabrera 07/07/2023 4:22 PM Dictation workstation: [id number] [place] Work Phone: Radiology Study observation (narrative) [facility] Work Phone: NM Heart Perfusion W stress and W radionuclide IVOrdered By: Luisa Cabrera on 07-07-2023 [place] Work Phone: NUCLEAR STRESS TESTon 2023 NUCLEAR STRESS TEST Interpreted By: Luisa Cabrera and Beal Gina STUDY: MYOCARDIAL PERFUSION STRESS TEST WITH LEXISCAN Performing facility: [facility], [address] [place] [address], [address], [place] [address] [facility] Provider: Jolly Smith MD, FACC PCP: Dr. Reyna RAMIREZ Supervising provider: Jolly Smith MD, FACC INDICATION: Atherosclerosis of coronary artery of [place] heart without angina pectoris, unspecified vessel or lesion type I25.10 (ICD-10-CM); Chest pain, unspecified type R07.9 (ICD-10-CM) HISTORY: Gender: F; Age: 72 y/o ; Height: HT 157.5 cm cm; Weight: WT 65.318 kg kg. CAD; Chest Pain; HTN; COPD; SOB; Arrhythmias; AFib, Palpitations; Currently smoking. COMPARISON: No comparison. ACCESSION NUMBER(S): [id number] ORDERING CLINICIAN: JOLLY SMITH TECHNIQUE: ONE DAY [...] Luisa Cabrera 07/07/2023 4:22 PM Dictation workstation: [id number] [facility] ECG 12 [place] 06-23-2023 [place] Work Phone: Patient Letter FTon 2022 Patient Letter [facility] March 23, 2023 CYDNEY VILLA [address] [place] [address] : 1950 Dear Cydney, This is a reminder that you are due for an appointment with [facility]. Please contact our office at [phone] to schedule an appointment at your earliest convenience. Thank you, [facility] Reminderson 03-23-2023 Reminders - From: Juliane Gillis MA To: [facility] - Reminders/Recalls; Sent: 02/04/2023 13:34:26 EDT Show up: 02/04/2023 13:34:00 EDT Subject: colon recall Reminder Message 10 year recall Salam 09/22/12 first recall letter second recall letter Normal [facility] February 07, 2023 CYDNEY IRWNICOMB [address] [place] [address] : 1950 Dear Cydney, This is a reminder that you are due for an appointment with [facility]. Please contact our office at [phone] to schedule an appointment at your earliest convenience. Thank you, [facility] Patient Letter [facility] September 29, 2022 CYDNEY VILLA [address] [place] [address] SHAUN CYDNEY 1950 Dear Cydney, This is a SECOND ATTEMPT to remind you that you are due for an appointment with [facility]. Please contact our office at [phone] to schedule an appointment at your earliest convenience. Thank you, [facility] Reminderson 09-29-2022 Reminders - From: Ligia Roberts To: [facility] - Reminders/Recalls; Sent: 09/13/2022 10:56:07 EDT Show up: 09/13/2022 10:56:00 EDT Subject: Ambulatory Reminder Reminder/Recall arturo aguilar 10 year colon recall 09/19/2022 first recall letter second recall letter Normal [facility] Patient Letter FTMCon 2022 Patient Letter [facility] September 13, 2022 CYDNEY VILLA [address] [place] [address] SHAUNCYDNEY 1950 Dear Cydney, This is a reminder that you are due for an appointment with [facility]. Please contact our office at [phone] to schedule an appointment at your earliest convenience. Thank you, [facility] Normal [facility] PROF CHEM 8 (BAS METB)on Anion gap [Moles/Vol] 10.8 mmol/L Normal [facility] Comment on above: Performed By: #### B MP #### [facility] [address] [address] [address] Josef Fraire Calcium [Mass/Vol] 9.4 mg/dL Normal 8.5-10.1 [facility] Comment on above: Performed By: #### B MP #### [facility] [address] [address] [address] Josef Fraire Chloride [Moles/Vol] 104 mmol/L Normal 98-107 [facility] Comment on above: Performed By: #### B MP #### [facility] [address] [address] [address] Josef Fraire CO2 [Moles/Vol] 28.4 mmol/L Normal 21.0-32.0 [facility] Comment on above: Performed By: #### B MP #### [facility] [address] [address] [address] Josef Fraire Creatinine [Mass/Vol] 1.03 mg/dL Critically high 0.55-1.02 [facility] Comment on above: Performed By: #### B MP #### [facility] [address] [address] [address] Josef Fraire EGFR-AF POLISH >60 Normal >=60 [facility] Comment on above: Performed By: #### B MP #### [facility] [address] [address] [address] Josef Fraire EGFR-NON AF POLISH 53 mL/min/1.73m2 Critically low >=60 [facility] Comment on above: Performed By: #### B MP #### [facility] [address] [address] [address] Josef Fraire Glucose [Mass/Vol] 82 mg/dL Normal 74-106 [facility] Comment on above: Performed By: #### B MP #### [facility] [address] [address] [address] Josef Fraire Potassium [Moles/Vol] 4.2 mmol/L Normal 3.5-5.1 [facility] Comment on above: Performed By: #### B MP #### [facility] [address] [address] [address] Josef Fraire Sodium [Moles/Vol] 139 mmol/L Normal 136-145 [facility] Comment on above: Performed By: #### B MP #### [facility] [address] [address] [address] Josef Fraire Urea nitrogen [Mass/Vol] 10.0 mg/dL Normal 7.0-18.0 [facility] Comment on above: Performed By: #### B MP #### [facility] [address] [address] [address] Josef Fraire Urea nitrogen/Creatinine [Mass ratio] 9.7 mg/mg Normal [facility] Comment on above: Performed By: #### B MP #### [facility] [address] [address] [address] Josef Fraire CBC AUTO DIFFon 01-28-2022 BASO # 0.1 103/ul Normal 0.0-0.1 [facility] Comment on above: Performed By: #### C BC #### [facility] [address] [address] [address] Josef Fraire Basophils/100 WBC (Bld) 0.6 % Normal 0.2-2.0 [facility] Comment on above: Performed By: #### C BC #### [facility] [address] [place] [address] Dr. Josef Fraire EO # 0.2 103/ul Normal 0.0-0.7 [facility] Comment on above: Performed By: #### C BC #### [facility] [address] [place] [address] Dr. Josef Fraire Eosinophils/100 WBC (Bld) 1.5 % Normal 0.9-7.0 [facility] Comment on above: Performed By: #### C BC #### [facility] [address] [place] [address] Dr. Josef Fraire Erythrocyte distribution width (RBC) [Ratio] 13.4 % Normal 11.0-15.0 [facility] Comment on above: Performed By: #### C BC #### [facility] [address] [place] [address] Dr. Josef Fraire Hematocrit (Bld) [Volume fraction] 43.0 % Normal 36.0-48.0 [facility] Comment on above: Performed By: #### C BC #### [facility] [address] [place] [address] Dr. Josef Fraire Hemoglobin (Bld) [Mass/Vol] 14.6 g/dL Normal 12.0-16.0 [facility] Comment on above: Performed By: #### C BC #### [facility] [address] [place] [address] Dr. Josef Fraire IG # 0.05 10e3/ul Critically high 0.00-0.03 [facility] Comment on above: Performed By: #### C BC #### [facility] [address] [place] [address] Dr. Josef Fraire IG % 0.5 % Normal 0.0-0.5 [facility] Comment on above: Performed By: #### C BC #### [facility] [address] [place] [address] Dr. Josef Fraire LYMPH # 3.1 103/ul Normal 1.2-3.8 [facility] Comment on above: Performed By: #### C BC #### [facility] [address] [place] [address] Dr. Josef Fraire Lymphocytes/100 WBC (Bld) 29.5 % Normal 20.5-60.0 [facility] Comment on above: Performed By: #### C BC #### [facility] [address] [place] [address] Dr. Josef Fraire MANUAL DIFF REQ NO Normal [facility] Comment on above: Performed By: #### C BC #### [facility] [address] [place] [address] Dr. Josef Fraire MCH (RBC) [Entitic mass] 30.0 pg Normal 26.7-34.0 [facility] Comment on above: Performed By: #### C BC #### [facility] [address] [place] [address] Dr. Josef Fraire MCHC (RBC) [Mass/Vol] 34.0 g/dL Normal 29.9-35.2 [facility] Comment on above: Performed By: #### C BC #### [facility] [address] [place] [address] Dr. Josef Fraire MCV (RBC) [Entitic vol] 88.3 fL Normal 81.0-99.0 [facility] Comment on above: Performed By: #### C BC #### [facility] [address] [place] [address] Dr. Josef Fraire MONO # 0.7 103/ul Normal 0.3-0.8 [facility] Comment on above: Performed By: #### C BC #### [facility] [address] [place] [address] Dr. Josef Fraire Monocytes/100 WBC (Bld) 6.8 % Normal 1.7-12.0 [facility] Comment on above: Performed By: #### C BC #### [facility] [address] [place] [address] Dr. Josef Fraire NEUT # 6.5 103/ul Normal 1.4-6.5 [facility] Comment on above: Performed By: #### C BC #### [facility] [address] [place] [address] Dr. Josef Fraire Neutrophils/100 WBC (Bld) 61.1 % Normal 43.0-75.0 [facility] Comment on above: Performed By: #### C BC #### [facility] [address] [place] [address] Dr. Josef Fraire Platelet mean volume (Bld) [Entitic vol] 10.7 fL Normal 9.5-13.5 [facility] Comment on above: Performed By: #### C BC #### [facility] [address] [place] [address] Dr. Josef Fraire PLT 313 103/ul Normal 150-450 [facility] Comment on above: Performed By: #### C BC #### [facility] [address] [place] [address] Dr. Josef Fraire RBC 4.87 106/ul Normal 4.20-5.40 [facility] Comment on above: Performed By: #### C BC #### [facility] [address] [place] [address] Dr. Josef Fraire WBC 10.7 103/ul Normal 4.0-11.0 [facility] Comment on above: Performed By: #### C BC #### [facility] [address] [place] [address] Dr. Josef Fraire ER URINE PROFILEon 2 Bilirubin Ql (U) Negative Normal NEGATIVE [facility] Comment on above: Performed By: #### E RUR #### [facility] [address] [place] [address] Dr. Josef Fraire Clarity (U) CLEAR Normal CLEAR [facility] Comment on above: Performed By: #### E RUR #### [facility] [address] [place] [address] Dr. Josef Fraire Color (U) LT. YELLOW Normal YELLOW [facility] Comment on above: Performed By: #### E RUR #### [facility] [address] [place] [address] Dr. Josef Fraire ERUAHD A micrscopic examination will be performed if indicated. Normal [facility] Comment on above: Performed By: #### E RUR #### [facility] [address] [place] [address] Dr. Josef Fraire Glucose Ql (U) Negative Normal NEGATIVE [facility] Comment on above: Performed By: #### E RUR #### [facility] [address] [place] [address] Dr. Josef Fraire Hemoglobin Ql (U) Negative Normal NEGATIVE [facility] Comment on above: Performed By: #### E RUR #### [facility] [address] [place] [address] Dr. Josef Fraire Ketones Ql (U) Negative Normal NEGATIVE [facility] Comment on above: Performed By: #### E RUR #### [facility] [address] [place] [address] Dr. Josef Fraire LEUKOCYTES Negative Normal NEGATIVE [facility] Comment on above: Performed By: #### E RUR #### [facility] [address] [place] [address] Dr. Josef Fraire Nitrite Ql (U) Negative Normal NEGATIVE [facility] Comment on above: Performed By: #### E RUR #### [facility] [address] [place] [address] Dr. Josef Fraire pH (U) 6.0 [pH] Normal 5-9 [facility] Comment on above: Performed By: #### E RUR #### [facility] [address] [place] [address] Dr. Josef Fraire SPEC GRAVITY <=1.005 Abnormal 1.005-<=1.02 5 [facility] Comment on above: Performed By: #### E RUR #### [facility] [address] [place] [address] Dr. Josef Fraire UA PROTEIN Negative Normal NEGATIVE/ TRACE [facility] Comment on above: Performed By: #### E RUR #### [facility] [address] [place] [address] Dr. Josef Fraire UR MICRO IND NOT INDICATED Normal [facility] Comment on above: Performed By: #### E RUR #### [facility] [address] [address] [address] Josef Fraire Urobilinogen Qn (U) 0.2 {Vero'U}/dL Normal 0.2 - 1. 0 [facility] Comment on above: Performed By: #### E RUR #### [facility] [address] [address] [address] Josef Fraire PROF CHEM 8 (BAS METB)on Anion gap [Moles/Vol] 14.6 mmol/L Normal [facility] Comment on above: Performed By: #### L IPID, CMP #### [facility] [address] [address] [address] Josef Fraire Calcium [Mass/Vol] 9.7 mg/dL Normal 8.5-10.1 [facility] Comment on above: Performed By: #### L IPID, CMP #### [facility] [address] [address] [address] Josef Fraire Chloride [Moles/Vol] 96 mmol/L Critically low 98-107 [facility] Comment on above: Performed By: #### L IPID, CMP #### [facility] [address] [address] [address] Josef Fraire CO2 [Moles/Vol] 25.8 mmol/L Normal 21.0-32.0 [facility] Comment on above: Performed By: #### L IPID, CMP #### [facility] [address] [address] [address] Josef Fraire Creatinine [Mass/Vol] 1.61 mg/dL Critically high 0.55-1.02 [facility] Comment on above: Performed By: #### L IPID, CMP #### [facility] [address] [address] [address] Josef Fraire EGFR-AF POLISH 38 mL/min/1.73m2 Critically low >=60 [facility] Comment on above: Performed By: #### L IPID, CMP #### [facility] [address] [address] [address] Josef Fraire EGFR-NON AF POLISH 32 mL/min/1.73m2 Critically low >=60 [facility] Comment on above: Performed By: #### L IPID, CMP #### [facility] [address] [place] [address] Dr. Josef Fraire Glucose [Mass/Vol] 119 mg/dL Critically high 74-106 [facility] Comment on above: Performed By: #### L IPID, CMP #### [facility] [address] [place] [address] Dr. Josef Fraire Potassium [Moles/Vol] 3.4 mmol/L Critically low 3.5-5.1 [facility] Comment on above: Result Comment: SPEC IMEN IS JUST SLIGHTLY HEMOLYZED AND SLIGHTLY LIPEMIC Performed By: #### L IPID, CMP #### [facility] [address] [place] [address] Dr. Josef Fraire Sodium [Moles/Vol] 133 mmol/L Critically low 136-145 [facility] Comment on above: Performed By: #### L IPID, CMP #### [facility] [address] [place] [address] Dr. Josef Fraire Urea nitrogen [Mass/Vol] 22.0 mg/dL Critically high 7.0-18 .0 [facility] Comment on above: Performed By: #### L IPID, CMP #### [facility] [address] [place] [address] Dr. Josef Fraire Urea nitrogen/Creatinine [Mass ratio] 13.7 mg/mg Normal [facility] Comment on above: Performed By: #### L IPID, CMP #### [facility] [address] [place] [address] Dr. Josef Fraire TROPONIN, HIGH SENSITIVITYon 01-28-2022 HSTROP 8.3 pg/mL Normal 4.0-51.3 [facility] Comment on above: Result Comment: CUT- OFF POINTS HAVE BEEN ESTABLISHED BASED ON THE FOURTH UNIVERSAL DEFINITIONS OF MYOCARDIAL INFARCTION. THE UPPER REFERENCE LIMIT (URL) OF TROPONIN, DEFINED THE 99TH PERCENTILE OF cTnI DISTRIBUTION IN A REFERENCE POPULATION, HAS BEEN CONFIRMED THE DECISION THRESHOLD FOR [place] DIAGNOSIS. Performed By: #### L IPID, CMP #### [facility] [address] [address] [address] Josef Fraire PROF CHEM 8 (BAS METB)on Anion gap [Moles/Vol] 14.6 mmol/L Normal [facility] Comment on above: Performed By: #### B MP #### [facility] [address] [address] [address] Josef Fraire Calcium [Mass/Vol] 10.6 mg/dL Critically high 8.5-10.1 [facility] Comment on above: Performed By: #### B MP #### [facility] [address] [address] [address] Josef Fraire Chloride [Moles/Vol] 97 mmol/L Critically low 98-107 [facility] Comment on above: Performed By: #### B MP #### [facility] [address] [place] [address] Dr. Josef Fraire CO2 [Moles/Vol] 29.5 mmol/L Normal 21.0-32.0 [facility] Comment on above: Performed By: #### B MP #### [facility] [address] [address] [address] Josef Fraire Creatinine [Mass/Vol] 1.34 mg/dL Critically high 0.55-1.02 [facility] Comment on above: Performed By: #### B MP #### [facility] [address] [address] [address] Josef Fraire EGFR-AF POLISH 47 mL/min/1.73m2 Critically low >=60 [facility] Comment on above: Performed By: #### B MP #### [facility] [address] [address] [address] Josef Fraire EGFR-NON AF POLISH 39 mL/min/1.73m2 Critically low >=60 [facility] Comment on above: Performed By: #### B MP #### [facility] [address] [address] [address] Josef Fraire Glucose [Mass/Vol] 88 mg/dL Normal 74-106 [facility] Comment on above: Performed By: #### B MP #### [facility] [address] [address] [address] Josef Fraire Potassium [Moles/Vol] 4.1 mmol/L Normal 3.5-5.1 [facility] Comment on above: Performed By: #### B MP #### [facility] [address] [address] [address] Josef Fraire Sodium [Moles/Vol] 137 mmol/L Normal 136-145 [facility] Comment on above: Performed By: #### B MP #### [facility] [address] [address] [address] Josef Fraire Urea nitrogen [Mass/Vol] 22.0 mg/dL Critically high 7.0-18 .0 [facility] Comment on above: Performed By: #### B MP #### [facility] [address] [place] [address] Dr. Josef Fraire Urea nitrogen/Creatinine [Mass ratio] 16.4 mg/mg Normal [facility] Comment on above: Performed By: #### B MP #### [facility] [address] [address] [address] Josef Fraire PROF CHEM 8 (BAS METB)on Anion gap [Moles/Vol] 9.5 mmol/L Normal [facility] Comment on above: Performed By: #### B MP #### [facility] [address] [address] [address] Josef Fraire Calcium [Mass/Vol] 9.1 mg/dL Normal 8.5-10.1 [facility] Comment on above: Performed By: #### B MP #### [facility] [address] [address] [address] Josef Fraire Chloride [Moles/Vol] 96 mmol/L Critically low 98-107 [facility] Comment on above: Performed By: #### B MP #### [facility] [address] [address] [address] Josef Fraire CO2 [Moles/Vol] 32.5 mmol/L Critically high 21.0-32.0 [facility] Comment on above: Performed By: #### B MP #### [facility] [address] [address] [address] Josef Fraire Creatinine [Mass/Vol] 0.76 mg/dL Normal 0.55-1.02 [facility] Comment on above: Performed By: #### B MP #### [facility] [address] [address] [address] Josef Fraire EGFR-AF POLISH >60 Normal >=60 [facility] Comment on above: Performed By: #### B MP #### [facility] [address] [address] [address] Josef Fraire EGFR-NON AF POLISH >60 Normal >=60 [facility] Comment on above: Performed By: #### B MP #### [facility] [address] [address] [address] Josef Fraire Glucose [Mass/Vol] 95 mg/dL Normal 74-106 [facility] Comment on above: Performed By: #### B MP #### [facility] [address] [address] [address] Josef Fraire Potassium [Moles/Vol] 3.0 mmol/L Critically low 3.5-5.1 [facility] Comment on above: Performed By: #### B MP #### [facility] [address] [address] [address] Josef Fraire Sodium [Moles/Vol] 135 mmol/L Critically low 136-[address] [facility] Comment on above: Performed By: #### B MP #### [facility] [address] [address] [address] Josef Fraire Urea nitrogen [Mass/Vol] 9.0 mg/dL Normal 7.0-18.0 [facility] Comment on above: Performed By: #### B MP #### [facility] [address] [place] [address] Dr. Josef Fraire Urea nitrogen/Creatinine [Mass ratio] 11.8 mg/mg Normal [facility] Comment on above: Performed By: #### B MP #### [facility] [address] [address] [address] Josef Fraire COVID-19 Positive/NegativeOr dered By: Gabriel Qiu on 12-21-2021 SARS-CoV-2 (COVID-19) N gene CHRIS+probe Ql (Resp) Negative Negative [facility] Comment on above: Testing for SARS-CoV -2 by RT-PCR This test was developed and its performance characteristics determined by [employer] ([employer]) and validated at the [facility]. This test has not been [...] the authorization is terminated or revoked sooner. Basophils Auto (Bld) [#/Vol] Ordered By: Gabriel Qiu on 12-11-2021 Basophils (Bld) [#/Vol] 0.1 10*3/uL 0.0-0.2 [facility] Basophils/100 WBC Auto (Bld) Ordered By: Gabriel Qiu on 12-11-2021 Basophils/100 WBC (Bld) 0.9 % . F [facility] Blood hemoglobin measurement (mass/volume)Ordered By: Gabriel Qiu on 12-11-2021 Hemoglobin (Bld) [Mass/Vol] 15.1 g/dL 11.8-15.4 [facility] Blood leukocytes automated c ount (number/volume)Ordered By: Gabriel Qiu on 12-11-2021 WBC (Bld) [#/Vol] 9.0 10*3/uL 4.5-11.0 [facility] Creatinine and Glomerular fi ltration rate.predicted panel (S/P/Bld)Ordered By: aGbriel Qiu on 12-11-2021 Creatinine [Mass/Vol] 0.71 mg/dL 0.44-1.03 [facility] Eosinophils Auto (Bld) [#/Vo l]Ordered By: Gabriel Qiu on 12-11-2021 Eosinophils (Bld) [#/Vol] 0.1 10*3/uL 0.0-0.45 [facility] Eosinophils/100 WBC Auto (Bl d)Ordered By: Gabriel Qiu on 12-11-2021 Eosinophils/100 WBC (Bld) 1.3 % . [facility] Erythrocyte distribution wid th Auto (RBC) [Ratio]Ordered By: Gabriel Qiu on 12-11-2021 Erythrocyte distribution width (RBC) [Ratio] 14.4 % 11.9-15.3 [facility] Estimated glomerular filtrat ion rate (GFR) non- AmericanOrdered By: Gabriel Qiu on 12-11-2021 GFR/1.73 sq M.predicted among non-blacks MDRD (S/P/Bld) [Vol rate/Area] > 60 mL/Min [facility] Hematocrit Auto (Bld) [Volum e fraction]Ordered By: Gabriel Qiu on 12-11-2021 Hematocrit (Bld) [Volume fraction] 45.2 % 34.0-46.4 [facility] - Hematology and Cell countsOrdered By: Gabriel Qiu on 12-11-2021 Nucleated RBC/100 WBC (Bld) [Ratio] 0.0 % 0-0.5 [facility] Lymphocytes Auto (Bld) [#/Vo l]Ordered By: Gabriel Qiu on 12-11-2021 Lymphocytes (Bld) [#/Vol] 1.8 10*3/uL 1.00-4.8 [facility] Lymphocytes/100 WBC Auto (Bl d)Ordered By: Gabriel Qiu on 12-11-2021 Lymphocytes/100 WBC (Bld) 19.7 % . [facility] MCH Auto (RBC) [Entitic mass ]Ordered By: Gabriel Qiu on 12-11-2021 MCH (RBC) [Entitic mass] 30.0 pg 24.7-34.3 [facility] MCHC Auto (RBC) [Mass/Vol]Or dered By: Gabriel Qiu on 12-11-2021 MCHC (RBC) [Mass/Vol] 33.5 g/dL 32.0-35.0 [facility] MCV Auto (RBC) [Entitic vol] Ordered By: Gbariel Qiu on 12-11-2021 MCV (RBC) [Entitic vol] 89.4 fL 80-100 F [facility] Monocytes Auto (Bld) [#/Vol] Ordered By: Gabriel Qiu on 12-11-2021 Monocytes (Bld) [#/Vol] 0.6 10*3/uL 0.0-0.8 [facility] Monocytes/100 WBC Auto (Bld) Ordered By: Gabriel Qiu on 12-11-2021 Monocytes/100 WBC (Bld) 6.8 % . F [facility] Neutrophils Auto (Bld) [#/Vo l]Ordered By: Gabriel Qiu on 12-11-2021 Neutrophils (Bld) [#/Vol] 6.4 10*3/uL 1.8-7.7 [facility] Neutrophils/100 WBC Auto (Bl d)Ordered By: Gabriel Qiu on 12-11-2021 Neutrophils/100 WBC (Bld) 71.3 % . [facility] No Panel InformationOrdered By: Gabriel Qiu on 12-11-2021 Estimated GFR () > 60 mL/Min [facility] Comment on above: GFR estimated refere nce range: According to KDOQI guidelines, <60 ml/min/1.73m2 is sufficient to diagnose a patient with chronic kidney disease. Pharmacy Creatinine Clearance (Chem N/A [facility] Platelet mean volume Auto (B ld) [Entitic vol]Ordered By: Gabriel Qiu on 12-11-2021 Platelet mean volume (Bld) [Entitic vol] 9.5 fL 6.3-10.7 [facility] Platelets Auto (Bld) [#/Vol] Ordered By: Gabriel Qiu on 12-11-2021 Platelets (Bld) [#/Vol] 245 10*3/uL 150-450 [facility] RBC Auto (Bld) [#/Vol]Ordere d By: Gabriel Qiu on 12-11-2021 RBC (Bld) [#/Vol] 5.05 10*6/uL 3.60-5.00 [facility] Serum or plasma calcium malcom urement (mass/volume)Ordered By: Gabriel Qiu on 12-11-2021 Calcium [Mass/Vol] 9.7 mg/dL 8.2-10.2 [facility] Serum or plasma chloride andreea surement (moles/volume)Ordered By: Gabriel Qiu on 12-11-2021 Chloride [Moles/Vol] 104 mmol/L 95-114 [facility] Serum or plasma glucose malcom urement (mass/volume)Ordered By: Gabriel Qiu on 12-11-2021 Glucose [Mass/Vol] 81 mg/dL 70-100 [facility] Comment on above: ADA recommended refe rence range Random Glucose Reference Range is dependent on time and content of last meal. Glucose of more than 200 mg/dL in a nonstressed, ambulatory subject supports the diagnosis of Diabetes Mellitus. Serum or plasma potassium me asurement (moles/volume)Ordered By: Gabriel Qiu on 12-11-2021 Potassium [Moles/Vol] 4.1 mmol/L 3.5-5.1 [facility] Serum or plasma sodium measu rement (moles/volume)Ordered By: Gabriel Qiu on 12-11-2021 Sodium [Moles/Vol] 138 mmol/L 136-146 [facility] Serum or plasma total carbon dioxide measurement (moles/volume)Ordered By: Gabriel Qiu on 12-11-2021 CO2 [Moles/Vol] 26.9 mmol/L 22.0-30.0 [facility] Serum or plasma urea nitroge n measurement (mass/volume)Ordered By: Gabriel Qiu on 12-11-2021 Urea nitrogen [Mass/Vol] 7 mg/dL 9-23 [facility] COVID-19 SOFIAOrdered By: Ruben Ziegler on 11-03-2021 SARS-CoV+SARS-CoV-2 (COVID-19) Ag IA.rapid Ql (Resp) Negative Negative [facility] Comment on above: This is a duplicate Tia SARS Antigen (MARITZA) result to be used for statistical tracking purpose only. No Panel InformationOrdered By: Gume Ziegler on 11-03-2021 SARS Antigen (LFIA) [facility] MG MAMM SCREEN 3D TERESA CADon 10-27-2021 MG MAMM SCREEN 3D TERESA CAD Patient: CYDNEY VILLA Exam Date: 10/27/2021 : 1950 Gender:F Ordering : SHAIKH Denise RAMIREZ . Admission #: [id number] Family : Order #: [id number] CLICK HERE TO VIEW EXAM RADIOLOGY REPORT [...] Treatments None Family Cancers None LOCATION: [facility] BREAST COMPOSITION: Scattered areas fibroglandular density. [...] Phillips MD on 10/27/2021 at 14:15 Normal [facility] CBC AUTO DIFFon 10-13-2021 BASO # 0.0 103/ul Normal 0.0-0.1 [facility] Comment on above: Performed By: #### C BC #### [facility] [address] [place], [place] [address] Dr. Josef Fraire Basophils/100 WBC (Bld) 0.5 % Normal 0.2-2.0 [facility] Comment on above: Performed By: #### C BC #### [facility] [address] [place], [place] [address] Dr. Josef Fraire EO # 0.2 103/ul Normal 0.0-0.7 [facility] Comment on above: Performed By: #### C BC #### [facility] [address] [place] [address] Dr. Josef Fraire Eosinophils/100 WBC (Bld) 2.4 % Normal 0.9-7.0 [facility] Comment on above: Performed By: #### C BC #### [facility] [address] [place] [address] Dr. Josef Fraire Erythrocyte distribution width (RBC) [Ratio] 13.9 % Normal 11.0-15.0 [facility] Comment on above: Performed By: #### C BC #### [facility] [address] [place] [address] Dr. Josef Fraire Hematocrit (Bld) [Volume fraction] 44.7 % Normal 36.0-48.0 [facility] Comment on above: Performed By: #### C BC #### [facility] [address] [place] [address] Dr. Josef Fraire Hemoglobin (Bld) [Mass/Vol] 14.4 g/dL Normal 12.0-16.0 [facility] Comment on above: Performed By: #### C BC #### [facility] [address] [place] [address] Dr. Josef Fraire IG # 0.03 10e3/ul Normal 0.00-0.03 [facility] Comment on above: Performed By: #### C BC #### [facility] [address] [place] [address] Dr. Josef Fraire IG % 0.4 % Normal 0.0-0.5 [facility] Comment on above: Performed By: #### C BC #### [facility] [address] [place] [address] Dr. Josef Fraire LYMPH # 2.0 103/ul Normal 1.2-3.8 [facility] Comment on above: Performed By: #### C BC #### [facility] [address] [place] [address] Dr. Josef Fraire Lymphocytes/100 WBC (Bld) 25.1 % Normal 20.5-60.0 [facility] Comment on above: Performed By: #### C BC #### [facility] [address] [place] [address] Dr. Josef Fraire MANUAL DIFF REQ NO Normal [facility] Comment on above: Performed By: #### C BC #### [facility] [address] [place] [address] Dr. Josef Fraire MCH (RBC) [Entitic mass] 29.9 pg Normal 26.7-34.0 [facility] Comment on above: Performed By: #### C BC #### [facility] [address] [place] [address] Dr. Josef Fraire MCHC (RBC) [Mass/Vol] 32.2 g/dL Normal 29.9-35.2 [facility] Comment on above: Performed By: #### C BC #### [facility] [address] [place] [address] Dr. Josef Fraire MCV (RBC) [Entitic vol] 92.7 fL Normal 81.0-99.0 [facility] Comment on above: Performed By: #### C BC #### [facility] [address] [place] [address] Dr. Josef Fraire MONO # 0.5 103/ul Normal 0.3-0.8 [facility] Comment on above: Performed By: #### C BC #### [facility] [address] [place] [address] Dr. Josef Fraire Monocytes/100 WBC (Bld) 6.6 % Normal 1.7-12.0 [facility] Comment on above: Performed By: #### C BC #### [facility] [address] [place] [address] Dr. Josef Fraire NEUT # 5.1 103/ul Normal 1.4-6.5 [facility] Comment on above: Performed By: #### C BC #### [facility] [address] [place] [address] Dr. Josef Fraire Neutrophils/100 WBC (Bld) 65.0 % Normal 43.0-75.0 [facility] Comment on above: Performed By: #### C BC #### [facility] [address] [place] [address] Dr. Josef Fraire Platelet mean volume (Bld) [Entitic vol] 11.9 fL Normal 9.5-13.5 [facility] Comment on above: Performed By: #### C BC #### [facility] [address] [place] [address] Dr. Josef Fraire PLT 217 103/ul Normal 150-450 [facility] Comment on above: Performed By: #### C BC #### [facility] [address] [place] [address] Dr. Josef Fraire RBC 4.82 106/ul Normal 4.20-5.40 [facility] Comment on above: Performed By: #### C BC #### [facility] [address] [place] [address] Dr. Josef Fraire WBC 7.9 103/ul Normal 4.0-11.0 [facility] Comment on above: Performed By: #### C BC #### [facility] [address] [place] [address] Dr. Josef Fraire FERRITINon 10-13-2021 Ferritin [Mass/Vol] 56.0 ng/mL Normal 8.0-252.0 [facility] Comment on above: Performed By: #### F ERR #### [facility] [address] [place] [address] Dr. Josef Fraire LIPID PROFILEon 10-13-2021 CHOL-HDL RATIO NORM SEE BELOW Normal [facility] Comment on above: Result Comment: 3.3 - 4.4 LOW RISK 4.4 - 7.1 AVERAGE RISK 7.1 - 11.0 MODERATE RISK >11.0 HIGH RISK Performed By: #### L IPID, CMP #### [facility] [address] [place] [address] Dr. Josef Fraire Cholesterol [Mass/Vol] 156 mg/dL Normal <=200 [facility] Comment on above: Performed By: #### L IPID, CMP #### [facility] [address] [place] [address] [address] Josef Fraire Cholesterol in HDL [Mass/Vol] 53 mg/dL Normal 40-60 [facility] Comment on above: Performed By: #### L IPID, CMP #### [facility] [address] [place] [address] [address] Josef Fraire Cholesterol in LDL [Mass/Vol] 85.0 mg/dL Normal [facility] Comment on above: Performed By: #### L IPID, CMP #### [facility] [address] [place] [address] [address] Josef Fraire Cholesterol.total/Choles terol in HDL [Mass ratio] 2.9 {ratio} Normal [facility] Comment on above: Performed By: #### L IPID, CMP #### [facility] [address] [place] [address] Dr. Josef Fraire HDL NORMAL > or = 60 mg/dl - LOW CARDIOVASCULAR RISK <40 mg/dl - HIGH CARDIOVASCULAR RISK Normal [facility] Comment on above: Performed By: #### L IPID, CMP #### [facility] [address] [place] [address] [address] Josef Fraire LDL CALC NORMAL SEE BELOW Normal [facility] Comment on above: Result Comment: <100 mg/dl OPTIMAL 100 - 129 mg/dl NEAR OR ABOVE OPTIMAL 130 - 159 mg/dl BORDERLINE HIGH 160 - 189 mg/dl HIGH >190 mg/dl VERY HIGH Performed By: #### L IPID, CMP #### [facility] [address] [place] [address] [address] Josef Fraire Triglyceride [Mass/Vol] 90 mg/dL Normal <=150 [facility] Comment on above: Performed By: #### L IPID, CMP #### [facility] [address] [place] [address] Dr. Josef Fraire VLDL CALC 18.0 mg/dL Normal [facility] Comment on above: Performed By: #### L IPID, CMP #### [facility] [address] [place] [address] [address] Josef Fraire PROF 14(COMP METB)on 022 Albumin [Mass/Vol] 3.5 g/dL Normal 3.4-5.0 [facility] Comment on above: Performed By: #### L IPID, CMP #### [facility] [address] [place] [address] [address] Josef Fraire Albumin/Globulin [Mass ratio] 1.0 {ratio} Normal [facility] Comment on above: Performed By: #### L IPID, CMP #### [facility] [address] [place] [address] [address] Josef Fraire ALP [Catalytic activity/Vol] 90 U/L Normal 46-116 [facility] Comment on above: Performed By: #### L IPID, CMP #### [facility] [address] [place] [address] Dr. Josef Fraire ALT [Catalytic activity/Vol] 25 U/L Normal 14-59 [facility] Comment on above: Performed By: #### L IPID, CMP #### [facility] [address] [place] [address] [address] Josef Fraire Anion gap [Moles/Vol] 9.0 mmol/L Normal [facility] Comment on above: Performed By: #### L IPID, CMP #### [facility] [address] [place] [address] Dr. Josef Fraire AST [Catalytic activity/Vol] 17 U/L Normal 15-37 [facility] Comment on above: Performed By: #### L IPID, CMP #### [facility] [address] [place] [address] [address] Josef Fraire Bilirubin [Mass/Vol] 0.4 mg/dL Normal 0.2-1.0 [facility] Comment on above: Performed By: #### L IPID, CMP #### [facility] [address] [place] [address] [address] Josef Fraire Calcium [Mass/Vol] 9.1 mg/dL Normal 8.5-10.1 [facility] Comment on above: Performed By: #### L IPID, CMP #### [facility] [address] [place] [address] Dr. Josef Fraire Chloride [Moles/Vol] 105 mmol/L Normal 98-107 [facility] Comment on above: Performed By: #### L IPID, CMP #### [facility] [address] [place] [address] Dr. Josef Fraire CO2 [Moles/Vol] 27.9 mmol/L Normal 21.0-32.0 [facility] Comment on above: Performed By: #### L IPID, CMP #### [facility] [address] [place] [address] Dr. Josef Fraire Creatinine [Mass/Vol] 0.78 mg/dL Normal 0.55-1.02 [facility] Comment on above: Performed By: #### L IPID, CMP #### [facility] [address] [place] [address] Dr. Josef Fraire EGFR-AF POLISH >60 Normal >=60 [facility] Comment on above: Performed By: #### L IPID, CMP #### [facility] [address] [place] [address] Dr. Josef Fraire EGFR-NON AF POLISH >60 Normal >=60 [facility] Comment on above: Performed By: #### L IPID, CMP #### [facility] [address] [place] [address] Dr. Josef Fraire Globulin (S) [Mass/Vol] 3.5 g/dL Normal [facility] Comment on above: Performed By: #### L IPID, CMP #### [facility] [address] [place] [address] Dr. Josef Fraire Glucose [Mass/Vol] 89 mg/dL Normal 74-106 [facility] Comment on above: Performed By: #### L IPID, CMP #### [facility] [address] [place] [address] Dr. Josef Fraire Potassium [Moles/Vol] 4.3 mmol/L Normal 3.5-5.1 [facility] Comment on above: Performed By: #### L IPID, CMP #### [facility] [address] [place] [address] Dr. Josef Fraire Protein [Mass/Vol] 7.0 g/dL Normal 6.4-8.2 [facility] Comment on above: Performed By: #### L IPID, CMP #### [facility] [address] [place] [address] [address] Josef Fraire Sodium [Moles/Vol] 140 mmol/L Normal 136-145 [facility] Comment on above: Performed By: #### L IPID, CMP #### [facility] [address] [place] [address] [address] Josef Fraire Urea nitrogen [Mass/Vol] 8.0 mg/dL Normal 7.0-18.0 [facility] Comment on above: Performed By: #### L IPID, CMP #### [facility] [address] [place] [address] Dr. Josef Fraire Urea nitrogen/Creatinine [Mass ratio] 10.2 mg/mg Normal [facility] Comment on above: Performed By: #### L IPID, CMP #### [facility] [address] [place] [address] [address] Josef Fraire Vital Signs Date Time Vital Sign Value Performing Clinician Facility 08-24-2024 14:28-0400 Diastolic blood pressure 80 mm[Hg] Jolly Smith MD Work Phone: [place] 08-24-2024 14:28-0400 Systolic blood pressure 140 mm[Hg] Jolly Smith MD Work Phone: [place] 08-24-2024 13:20-0400 Body height 157.5 cm Jolly Smith MD Work Phone: [place] 08-24-2024 13:20-0400 Body mass index (BMI) [Ratio] 26.41 kg/m2 Jolly Smith MD Work Phone: [place] 08-24-2024 13:20-0400 Body weight 65.5 kg Jolly Smith MD Work Phone: [place] 08-24-2024 13:20-0400 Heart rate 64 /min Jolly Smith MD Work Phone: [place] 07-25-2024 14:33-0500 Body height 157.48 cm Sonu Connelly CORRECTIVE THERAPY AIDE TEACHER-C Work Phone: [facility] 07-25-2024 14:33-0500 Body mass index (BMI) [Ratio] 25.6 kg/m2 Sonu Connelly CORRECTIVE THERAPY AIDE TEACHER-C Work Phone: [facility] 07-25-2024 14:33-0500 Body weight 63.5 kg Sonu Connelly CORRECTIVE THERAPY AIDE TEACHER-C Work Phone: [facility] 07-03-2024 14:50-0500 Diastolic blood pressure 74 mm[Hg] Sonu Connelly CORRECTIVE THERAPY AIDE TEACHER-C Work Phone: [facility] 07-03-2024 14:50-0500 Heart rate 72 /min Sonu Connelly CORRECTIVE THERAPY AIDE TEACHER-C Work Phone: [facility] 07-03-2024 14:50-0500 Respiratory rate 18 /min Sonu Connelly CORRECTIVE THERAPY AIDE TEACHER-C Work Phone: [facility] 07-03-2024 14:50-0500 SaO2% (BldA) [Mass fraction] 97 % Sonu Connelly CORRECTIVE THERAPY AIDE TEACHER-C Work Phone: [facility] 07-03-2024 14:50-0500 Systolic blood pressure 117 mm[Hg] Sonu Connelly CORRECTIVE THERAPY AIDE TEACHER-C Work Phone: [facility] 07-03-2024 12:40-0500 Body height 157.48 cm Sonu Connelly CORRECTIVE THERAPY AIDE TEACHER-C Work Phone: [facility] 07-03-2024 12:40-0500 Body weight 63.5 kg Sonu Connelly CORRECTIVE THERAPY AIDE TEACHER-C Work Phone: [facility] 06-20-2024 13:06-0500 Body height 157.48 cm Sonu Connelly CORRECTIVE THERAPY AIDE TEACHER-C Work Phone: [facility] 06-20-2024 13:06-0500 Body mass index (BMI) [Ratio] 25.6 kg/m2 Sonu Connelly CORRECTIVE THERAPY AIDE TEACHER-C Work Phone: [facility] 06-20-2024 13:06-0500 Body weight 63.5 kg Sonu Connelly CORRECTIVE THERAPY AIDE TEACHER-C Work Phone: [facility] 06-04-2024 09:16-0500 Body height 157.5 cm Sonu Connelly CORRECTIVE THERAPY AIDE TEACHER Work Phone: [facility] 06-04-2024 09:16-0500 Body mass index (BMI) [Ratio] 25.83 kg/m2 Sonu Connelly CORRECTIVE THERAPY AIDE TEACHER Work Phone: [facility] 06-04-2024 09:16-0500 Body temperature 97.2 [degF] Sonu Connelly CORRECTIVE THERAPY AIDE TEACHER Work Phone: [facility] 06-04-2024 09:16-0500 Body weight 64.05 kg Sonu Connelly CORRECTIVE THERAPY AIDE TEACHER Work Phone: [facility] 06-04-2024 09:16-0500 Diastolic blood pressure 68 mm[Hg] Sonu Connelly CORRECTIVE THERAPY AIDE TEACHER Work Phone: [facility] 06-04-2024 09:16-0500 Heart rate 84 /min Sonu Connelly CORRECTIVE THERAPY AIDE TEACHER Work Phone: [facility] 06-04-2024 09:16-0500 Respiratory rate 16 /min Sonu Connelly CORRECTIVE THERAPY AIDE TEACHER Work Phone: [facility] 06-04-2024 09:16-0500 SaO2% (BldA) [Mass fraction] 96 % Sonu Connelly CORRECTIVE THERAPY AIDE TEACHER Work Phone: [facility] 06-04-2024 09:16-0500 Systolic blood pressure 112 mm[Hg] Sonu Connelly CORRECTIVE THERAPY AIDE TEACHER Work Phone: [facility] 05-12-2024 14:09-0500 Body height 157.48 cm Sonu Connelly CORRECTIVE THERAPY AIDE TEACHER-C Work Phone: [facility] 05-12-2024 14:09-0500 Body mass index (BMI) [Ratio] 26 kg/m2 Sonu Connelly CORRECTIVE THERAPY AIDE TEACHER-C Work Phone: [facility] 05-12-2024 14:09-0500 Body temperature 98.1 [degF] Sonu Connelly CORRECTIVE THERAPY AIDE TEACHER-C Work Phone: [facility] 05-12-2024 14:09-0500 Body weight 64.58 kg Sonu Connelly CORRECTIVE THERAPY AIDE TEACHER-C Work Phone: [facility] 05-12-2024 14:09-0500 Diastolic blood pressure 63 mm[Hg] Sonu Connelly CORRECTIVE THERAPY AIDE TEACHER-C Work Phone: [facility] 05-12-2024 14:09-0500 Heart rate 64 /min Sonu Connelly CORRECTIVE THERAPY AIDE TEACHER-C Work Phone: [facility] 05-12-2024 14:09-0500 Respiratory rate 18 /min Sonu Connelly CORRECTIVE THERAPY AIDE TEACHER-C Work Phone: [facility] 05-12-2024 14:09-0500 SaO2% (BldA) [Mass fraction] 94 % Sonu Connelly CORRECTIVE THERAPY AIDE TEACHER-C Work Phone: [facility] 05-12-2024 14:09-0500 Systolic blood pressure 109 mm[Hg] Sonu Connelly CORRECTIVE THERAPY AIDE TEACHER-C Work Phone: [facility] 02-21-2024 09:17-0400 Body height 157.5 cm Sonu Connelly CORRECTIVE THERAPY AIDE TEACHER Work Phone: [facility] 02-21-2024 09:17-0400 Body mass index (BMI) [Ratio] 25.61 kg/m2 Sonu Connelly CORRECTIVE THERAPY AIDE TEACHER Work Phone: [facility] 02-21-2024 09:17-0400 Body temperature 98.01 [degF] Sonu Connelly CORRECTIVE THERAPY AIDE TEACHER Work Phone: [facility] 02-21-2024 09:17-0400 Body weight 63.5 kg Sonu Connelly CORRECTIVE THERAPY AIDE TEACHER Work Phone: [facility] 02-21-2024 09:17-0400 Diastolic blood pressure 60 mm[Hg] Sonu Connelly CORRECTIVE THERAPY AIDE TEACHER Work Phone: [facility] 02-21-2024 09:17-0400 Heart rate 60 /min Sonu Connelly CORRECTIVE THERAPY AIDE TEACHER Work Phone: [facility] 02-21-2024 09:17-0400 Systolic blood pressure 110 mm[Hg] Sonu Connelly CORRECTIVE THERAPY AIDE TEACHER Work Phone: [facility] 01-09-2024 07:56-0400 Body height 157.5 cm Richardson Rincon DOMESTIC HOUSEKEEPER-NEUROPSYCHOLOGY MEDICAL CONSULTANT Work Phone: [place] 01-09-2024 07:56-0400 Body mass index (BMI) [Ratio] 26.16 kg/m2 Richardson Rincon DOMESTIC HOUSEKEEPER-NEUROPSYCHOLOGY MEDICAL CONSULTANT Work Phone: [place] 01-09-2024 07:56-0400 Body weight 64.86 kg Richardson Rincon DOMESTIC HOUSEKEEPER-NEUROPSYCHOLOGY MEDICAL CONSULTANT Work Phone: [place] 01-09-2024 07:56-0400 Diastolic blood pressure 66 mm[Hg] Richardson Rincon DOMESTIC HOUSEKEEPER-NEUROPSYCHOLOGY MEDICAL CONSULTANT Work Phone: [place] 01-09-2024 07:56-0400 Heart rate 72 /min Richardson Rincon DOMESTIC HOUSEKEEPER-NEUROPSYCHOLOGY MEDICAL CONSULTANT Work Phone: [place] 01-09-2024 07:56-0400 Systolic blood pressure 124 mm[Hg] Richardson Rincon APRN-NEUROPSYCHOLOGY MEDICAL CONSULTANT Work Phone: [place] 07-11-2023 12:38-0500 Body height 157.5 cm Jolly Smith MD Work Phone: [place] 07-11-2023 12:38-0500 Body mass index (BMI) [Ratio] 25.97 kg/m2 Jolly Smith MD Work Phone: [place] 07-11-2023 12:38-0500 Body weight 64.41 kg Jolly Smith MD Work Phone: [place] 07-11-2023 12:38-0500 Diastolic blood pressure 76 mm[Hg] Jolly Smith MD Work Phone: [place] 07-11-2023 12:38-0500 Heart rate 60 /min Jolly Smith MD Work Phone: [place] 07-11-2023 12:38-0500 Systolic blood pressure 124 mm[Hg] Jolly Smith MD Work Phone: [place] 06-23-2023 11:39-0500 Diastolic blood pressure 72 mm[Hg] Jolly Simth MD Work Phone: [place] 06-23-2023 11:39-0500 Systolic blood pressure 110 mm[Hg] Jolly Smith MD Work Phone: [place] 06-23-2023 10:49-0500 Heart rate 64 /min Jolly Smith MD Work Phone: [place] 06-23-2023 10:48-0500 Body height 157.5 cm Jolly Smith MD Work Phone: [place] 06-23-2023 10:48-0500 Body mass index (BMI) [Ratio] 26.34 kg/m2 Jolly Smith MD Work Phone: [place] 06-23-2023 10:48-0500 Body weight 65.32 kg Jolly Smith MD Work Phone: [place] 11-22-2022 09:10-0400 Body height 160.02 cm Gracia Woodruff Other [employer] Other 11-22-2022 09:10-0400 Body mass index (BMI) [Ratio] 25.98 kg/m2 Gracia Woodruff Other [employer] Other 11-22-2022 09:10-0400 Body temperature 97.8 [degF] Gracia Woodruff Other [employer] Other 11-22-2022 09:10-0400 Body weight 66.54 kg Gracia Woodruff Other [employer] Other 11-22-2022 09:10-0400 Diastolic blood pressure 56 mm[Hg] Gracia Woodruff Other [employer] Other 11-22-2022 09:10-0400 Respiratory rate 18 /min Gracia Woodruff Other [employer] Other 11-22-2022 09:10-0400 SaO2% (BldA) [Mass fraction] 95 % Gracia Woodruff Other [employer] Other 11-22-2022 09:10-0400 Systolic blood pressure 148 mm[Hg] Gracia Woodruff Other [employer] Other 12-23-2021 14:20-0400 Diastolic blood pressure 64 mm[Hg] DO Gume Ziegler Work Phone: [facility] 12-23-2021 14:20-0400 Heart rate 71 /min DO Gume Hykes Work Phone: [facility] 12-23-2021 14:20-0400 Respiratory rate 16 /min DO Gume Hykes Work Phone: [facility] 12-23-2021 14:20-0400 SaO2% (BldA) [Mass fraction] 96 % DO Gume Hykes Work Phone: [facility] 12-23-2021 14:20-0400 Systolic blood pressure 122 mm[Hg] DO Gume Hykes Work Phone: [facility] 12-23-2021 12:12-0400 Body height 157.48 cm DO Gume Hykes Work Phone: [facility] 12-23-2021 12:12-0400 Body mass index (BMI) [Ratio] 27 kg/m2 DO Gume Hykes Work Phone: [facility] 12-23-2021 12:12-0400 Body weight 67 kg DO Gume Hykes Work Phone: [facility] 12-23-2021 11:11-0400 Body temperature 97.9 [degF] DO Gume Hykes Work Phone: [facility] 11-05-2021 13:50-0400 Diastolic blood pressure 64 mm[Hg] DO Gume Hykes Work Phone: [facility] 11-05-2021 13:50-0400 Heart rate 77 /min DO Gume Hykes Work Phone: [facility] 11-05-2021 13:50-0400 Respiratory rate 16 /min DO Gume Hykes Work Phone: [facility] 11-05-2021 13:50-0400 SaO2% (BldA) [Mass fraction] 97 % DO Gume Hykes Work Phone: [facility] 11-05-2021 13:50-0400 Systolic blood pressure 118 mm[Hg] DO Gume Ziegler Work Phone: [facility] 11-05-2021 12:49-0400 Body height 160.02 cm DO Gume Ziegler Work Phone: [facility] 11-05-2021 12:49-0400 Body mass index (BMI) [Ratio] 25.3 kg/m2 DO Gume Ziegler Work Phone: [facility] 11-05-2021 12:49-0400 Body temperature 98.2 [degF] DO Gume Ziegler Work Phone: [facility] 11-05-2021 12:49-0400 Body weight 64.86 kg DO Gume Ziegler Work Phone: [facility] 05-06-2021 10:45-0500 Body height 160.02 cm Dedearturo Garcia Other [employer] Other 05-06-2021 10:45-0500 Body mass index (BMI) [Ratio] 25.74 kg/m2 Dede Calvey Other [employer] Other 05-06-2021 10:45-0500 Body weight 65.91 kg Dede Calvrene Other [employer] Other 04-08-2021 15:15-0500 Body height 160.02 cm Dede Calvrene Other [employer] Other 04-08-2021 15:15-0500 Body mass index (BMI) [Ratio] 25.33 kg/m2 Dede Calvey Other [employer] Other 04-08-2021 15:15-0500 Body weight 64.86 kg Dede Calvey Other [employer] Other Encounters Encounter Date Encounter Type Care Provider Facility Start: 10-18-2024 End: 10-18-2024 ambulatory LEANNE MENDES Not Available Start: 10-01-2024 End: 10-02-2024 Refill Rocky Gupta MD Work Phone: [facility] Comment on above: Seasonal allergic rh initis due to other allergic trigger Start: 09-03-2024 End: 09-03-2024 Refill Leanne Mendes CORRECTIVE THERAPY AIDE TEACHER Work Phone: [facility] Comment on above: Other emphysema (CMS /HCC); Gastroesophageal reflux disease without esophagitis; New onset a-fib (CMS/HCC); Restless legs syndrome Start: 08-24-2024 End: 08-24-2024 Office outpatient visit 25 minutes Jolly Smith MD Work Phone: [facility] Comment on above: Paroxysmal atrial 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 (Multi); 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; Primary hypertension; Mixed hyperlipidemia; Tingling of upper extremity; Current every day smoker; BMI 26.0-26.9,adult Start: 08-24-2024 End: 08-24-2024 ambulatory [facility] Start: 08-07-2024 End: 08-07-2024 ambulatory [facility] Start: 07-25-2024 End: 07-25-2024 ambulatory Sonu Connelly CORRECTIVE THERAPY AIDE TEACHER-C Work Phone: [facility] Work Phone: Start: 07-25-2024 End: 07-25-2024 Patient encounter procedure Sonu Connelly CORRECTIVE THERAPY AIDE TEACHER-C Work Phone: [facility] Work Phone: Start: 07-04-2024 End: 07-04-2024 Refill Sonu Connelly CORRECTIVE THERAPY AIDE TEACHER Work Phone: [facility] Comment on above: Gastroesophageal ref lux disease without esophagitis Start: 07-03-2024 Non-patient / Non-visit Phyllis ny Connelly CORRECTIVE THERAPY AIDE TEACHER-C Work Phone: [facility] Work Phone: Start: 07-03-2024 End: 07-03-2024 Admission to same day surgery center Sonu Gamboazpatrick CORRECTIVE THERAPY AIDE TEACHER-C Work Phone: [facility] Work Phone: Start: 07-03-2024 End: 07-03-2024 ambulatory Sonu Gamboazpatrick CORRECTIVE THERAPY AIDE TEACHER-C Work Phone: [facility] Work Phone: Start: 06-27-2024 End: 06-27-2024 Refill Sonu Gamboazpatrick CORRECTIVE THERAPY AIDE TEACHER Work Phone: [facility] Comment on above: Seasonal allergic rh initis due to other allergic trigger Start: 06-27-2024 End: 06-27-2024 Patient encounter procedure Sonu Connelly CORRECTIVE THERAPY AIDE TEACHER-C Work Phone: [facility] [place] Work Phone: Start: 06-27-2024 End: 06-27-2024 ambulatory Sonu Landistrick CORRECTIVE THERAPY AIDE TEACHER-C Work Phone: [facility] Work Phone: Start: 06-20-2024 End: 06-20-2024 ambulatory Sonu Landistrick CORRECTIVE THERAPY AIDE TEACHER-C Work Phone: [facility] Work Phone: Start: 06-20-2024 End: 06-20-2024 Patient encounter procedure Sonu Landistrick CORRECTIVE THERAPY AIDE TEACHER-C Work Phone: [facility] [place] Work Phone: Start: 06-12-2024 End: 06-12-2024 Clinisync Result Encounter Sonu Connelly CORRECTIVE THERAPY AIDE TEACHER Work Phone: [facility] External Department Unsolicited Start: 06-12-2024 End: 06-12-2024 Clinisync Result Encounter Sonu Gamboazpatrick CORRECTIVE THERAPY AIDE TEACHER Work Phone: [facility] External Department Unsolicited Start: 06-12-2024 End: 06-12-2024 Orders Only Sonu Connelly CORRECTIVE THERAPY AIDE TEACHER Work Phone: [facility] Comment on above: Abnormal laboratory test result (Primary Dx) Start: 06-04-2024 End: 06-04-2024 Bamboo flowsheet Sonu Gamboazpatrick CORRECTIVE THERAPY AIDE TEACHER Work Phone: [facility] Start: 06-04-2024 End: 06-04-2024 Bamboo flowsheet Sonu Connelly CORRECTIVE THERAPY AIDE TEACHER Work Phone: [facility] Start: 06-04-2024 End: 06-04-2024 Office outpatient visit 15 minutes Sonu Connelly CORRECTIVE THERAPY AIDE TEACHER Work Phone: [facility] Comment on [...] 06-04-2024 ambulatory SONU CONNELLY Not Available Start: 05-12-2024 End: 05-12-2024 Patient encounter procedure Sonu Godwin CORRECTIVE THERAPY AIDE TEACHER-C Work Phone: [facility] [place] Work Phone: Start: 03-14-2024 End: 03-14-2024 Refill Sonu Godwin CORRECTIVE THERAPY AIDE TEACHER Work Phone: [facility] Comment on above: Seasonal allergic rh initis due to other allergic trigger (Primary Dx); Other emphysema (CMS/HCC) Start: 02-21-2024 End: 02-21-2024 Bamboo flowsheet Sonu Shahidk CORRECTIVE THERAPY AIDE TEACHER Work Phone: [facility] Start: 02-21-2024 End: 02-21-2024 Bamboo flowsheet Sonu Shahidk CORRECTIVE THERAPY AIDE TEACHER Work Phone: [facility] Start: 02-21-2024 End: 02-21-2024 Office outpatient visit 15 minutes Sonu Connelly CORRECTIVE THERAPY AIDE TEACHER Work Phone: [facility] Comment on above: Primary hypertension (CMS/HCC) (Primary Dx); Age-related osteoporosis without current pathological fracture (CMS/HCC); Gastroesophageal reflux disease without esophagitis; Chronic epigastric pain; Cigarette nicotine dependence without complication; Other emphysema (CMS/HCC); Mixed hyperlipidemia (CMS/HCC) Start: 02-21-2024 End: 02-21-2024 ambulatory SONU CONNELLY Not Available Start: 01-09-2024 End: 01-09-2024 Office outpatient visit 15 minutes Richardson Rincon APRN-[facility] Work Phone: [facility] Comment on above: 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 (Primary Dx); Atrial fibrillation, unspecified type (Multi); Paroxysmal atrial 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 (Multi); Primary hypertension; Mixed hyperlipidemia; Current every day smoker Start: 01-09-2024 End: 01-09-2024 ambulatory RICHARDSON [facility] Ambulatory Start: 07-14-2023 Clinisync Result Encounter Generic External Data Provider [facility] External Department Unsolicited Start: 07-14-2023 Clinisync Result Encounter Generic External Data Provider [facility] External Department Unsolicited Start: 07-11-2023 End: 07-11-2023 Office outpatient visit 25 minutes Jolly Smith MD Work Phone: [facility] Comment on above: [facility] current us e of anticoagulant therapy (Primary Dx); Atrial fibrillation, unspecified type (CMS/HCC); Gastroesophageal reflux disease, unspecified whether esophagitis present; Paroxysmal atrial 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 (CMS/HCC); Primary hypertension; Mixed hyperlipidemia; Hypercoagulable state due to 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 (CMS/HCC); Current every day smoker; Encounter to discuss test results Start: 07-07-2023 End: 07-07-2023 Subsequent hospital visit by physician Florencia Cordero [place] [facility] Start: 07-07-2023 End: 07-07-2023 ambulatory JOLLY SMITH 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; Hyperlipidemia, unspecified hyperlipidemia type; Chest pain, unspecified type; Primary hypertension; Paroxysmal atrial 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 (CMS/HCC) Start: 05-17-2023 Patient encounter procedure Generic Provider [facility] Start: 11-22-2022 End: 11-22-2022 ambulatory Gracia Woodruff Other [employer] Other Start: 11-22-2022 Office outpatient vi sit 15 minutes Gracia Woodruff [facility] Start: 09-13-2022 ambulatory Facility:[facility] Start: 04-07-2022 End: 04-08-2022 ambulatory SHAIKH Erika RAMIREZ Facility:[facility] Start: 01-28-2022 End: 01-28-[address] YORDAN BAÑUELOS Facility:[facility] Start: 01-27-2022 End: 01-28-2022 ambulatory SHAIKH Erika RAMIREZ Facility:[facility] Start: 01-18-2022 End: 01-19-2022 ambulatory SHAIKH Erika RAMIREZ Facility:[facility] Start: 12-23-2021 End: 12-23-2021 Admission to same day surgery center DO Gume Ziegler Work Phone: [facility] [place] Start: 12-21-2021 End: 12-21-2021 Patient encounter procedure DO Gume Ziegler Work Phone: [facility] Start: 12-11-2021 End: 12-11-2021 Patient encounter procedure DO Gume Ziegler Work Phone: [facility] Start: 12-09-2021 End: 12-09-2021 ambulatory Gume Ziegler Other [employer] Other Start: 12-09-2021 Telephone encounter Gume Ziegler [facility] Start: 11-27-2021 End: 11-27-2021 ambulatory Gume Ziegler Other [employer] Other Start: 11-27-2021 Telephone encounter Gume Ziegler [facility] Start: 11-09-2021 End: 11-09-2021 ambulatory Gume Ziegler Other [employer] Other Start: 11-09-2021 Telephone encounter Gume Ziegler [facility] Start: 11-05-2021 End: 11-05-2021 Admission to same day surgery center DO Gume Ziegler Work Phone: [facility] Start: 11-03-2021 End: 11-03-2021 Patient encounter procedure DO Gume Ziegler Work Phone: [facility] Start: 10-28-2021 End: 10-28-2021 ambulatory Gume Ziegler Other [employer] Other Start: 10-28-2021 Telephone encounter Gume Ziegler [facility] Start: 10-27-2021 End: 10-28-2021 ambulatory SHAIKH Erika RAMIREZ Facility:[facility] Start: 10-13-2021 End: 10-14-2021 ambulatory SHAIKH Erika RAMIREZ Facility:[facility] Start: 05-06-2021 End: 05-06-2021 ambulatory Dede Garcia Other [employer] Other Start: 05-06-2021 Office outpatient vi sit 10 minutes Dedearturo Garcia [facility] Start: 04-14-2021 End: 04-14-2021 ambulatory Jaime Paulino Other [employer] Other Start: 04-14-2021 Telephone encounter Jaime Lora [facility] Start: 04-08-2021 End: 04-08-2021 ambulatory Dedearturo Garcia Other [employer] Other Start: 04-08-2021 Office outpatient vi sit 15 minutes Dedearturo Garcia [facility] Start: 03-11-2021 Office outpatient vi sit 15 minutes Dedearturo Garcia [facility] Procedures Date Procedure Procedure Detail Performing Clinician Start: 07-03-2024 Esophagogastroduodenoscopy Sonu Landistrick CORRECTIVE THERAPY AIDE TEACHER-C Work Phone: Start: 06-27-2024 Ultrasonography of abdomen Sonu Landistrick CORRECTIVE THERAPY AIDE TEACHER-C Work Phone: Start: 06-13-2024 Mammography Sonu Connelly CORRECTIVE THERAPY AIDE TEACHER Work Phone: Start: 06-12-2024 Laboratory test result abnormal Abnormal laboratory test result Sonu Connelly CORRECTIVE THERAPY AIDE TEACHER Work Phone: Start: 06-12-2024 ALL CBC WITH AUTO DIFF Sonu Goodmanpatrick CORRECTIVE THERAPY AIDE TEACHER Work Phone: Start: 07-14-2023 ALL CBC WITH AUTO DIFF Generic External Data Provider Start: 07-07-2023 NUCLEAR STRESS TEST JOLLY SMITH Start: 07-07-2023 Cv strs tst xers&/or rx cont ecg trcg only Jolly Smith MD Work Phone: Start: 06-23-2023 Ecg routine ecg w/least 12 lds w/i&r Jolly Smith MD Work Phone: Start: 01-28-2023 Mammography Generic Provider Start: 12-23-2021 Hemorrhoidectomy DO Gume Ziegler Work Phone: Start: 11-05-2021 Diagnostic endoscopic examination on colon DO Gume Ziegler Work Phone: Start: 11-02-2021 Colonoscopy Generic Provider SARS Antigen (LFIA) DO Gume Ziegler Work Phone: Plan of Treatment Date Care Activity Detail Author Start: 11-03-2031 Screening for malign ant neoplasm of colon [facility] Start: 08-29-2031 DTaP/Tdap/Td Vaccine s (2 - Td or Tdap) DTaP/Tdap/Td Vaccines (2 - Td or Tdap) [place] Start: 08-05-2025 End: 08-05-2025 Patient encounter procedure 08/05/2025 10:45 AM EDT Office Visit [facility] [address] [facility] [address] [place] [address] Jolly Smith MD [address] [facility] [address] [place] [address] [facility] Start: 06-13-2025 Screening for malign ant neoplasm of breast Mammogram [facility] Start: 10-18-2024 End: 10-18-2024 Patient encounter procedure 10/18/2024 9:20 AM EDT Office Visit [facility] [address] [place] [id number] Leanne Mendes NP [address] [place] [address] [facility] Start: 09-03-2024 End: 09-03-2024 Patient encounter procedure 09/03/2024 9:30 AM EDT Office Visit [facility] [address] [place] [phone] Sonu Connelly NP [address] [place] [id number] [facility] Start: 08-24-2024 End: 08-24-2025 CBC panel - Blood by Automated count CBC Lab Routine Paroxysmal atrial 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 (Multi) [facility] current use of anticoagulant therapy Expected: 08/24/2024, Expires: 08/24/2025 [place] Work Phone: Comment on above: Expected: 08/24/2024 , Expires: 08/24/2025 Start: 08-24-2024 End: 08-24-2025 Comprehensive metabolic 2000 panel - Serum or Plasma Comprehensive Metabolic Panel Lab Routine Primary hypertension Mixed hyperlipidemia Expected: 08/24/2024, Expires: 08/24/2025 [place] Work Phone: Comment on above: Expected: 08/24/2024 , Expires: 08/24/2025 Start: 08-24-2024 End: 08-24-2025 Lipid 1996 panel - Serum or Plasma Lipid Panel Lab Routine Mixed hyperlipidemia Expected: 08/24/2024, Expires: 08/24/2025 [facility] Service Area Work Phone: Comment on above: Expected: 08/24/2024 , Expires: 08/24/2025 Start: 07-19-2024 End: 07-19-2024 Patient encounter procedure [facility] Start: 07-11-2024 End: 01-08-2025 CBC panel - Blood by Automated count CBC Lab Routine Atrial fibrillation, unspecified type (Multi) [facility] current use of anticoagulant therapy Expected: 07/11/2024 (Approximate), Expires: 01/08/2025 [place] Work Phone: Comment on above: Expected: 07/11/2024 (Approximate), Expires: 01/08/2025 Start: 07-11-2024 End: 01-08-2025 Comprehensive metabolic 2000 panel - Serum or Plasma Comprehensive Metabolic Panel Lab Routine Atrial fibrillation, unspecified type (Multi) 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 Expected: 07/11/2024 (Approximate), Expires: 01/08/2025 [facility] Area Work Phone: Comment on above: Expected: 07/11/2024 (Approximate), Expires: 01/08/2025 Start: 07-11-2024 End: 01-08-2025 Lipid 1996 panel - Serum or Plasma Lipid Panel Lab Routine Atrial fibrillation, unspecified type (Multi) Mixed hyperlipidemia Expected: 07/11/2024 (Approximate), Expires: 01/08/2025 [place] Work Phone: Comment on above: Expected: 07/11/2024 (Approximate), Expires: 01/08/2025 Start: 07-03-2024 [facility] Start: 06-19-2024 End: 06-12-2025 Comprehensive metabolic 2000 panel - Serum or Plasma Comprehensive metabolic panel Lab Routine Abnormal laboratory test result Expected: 06/19/2024 (Approximate), Expires: 06/12/2025 [facility] Work Phone: Comment on above: Expected: 06/19/2024 (Approximate), Expires: 06/12/2025 Start: 06-04-2024 End: 06-04-2025 CBC W Auto Differential panel - Blood CBC and differential Lab Routine Primary hypertension (CMS/HCC) Expected: 06/04/2024 (Approximate), Expires: 06/04/2025 [facility] Comment on above: Expected: 06/04/2024 (Approximate), Expires: 06/04/2025 Start: 06-04-2024 End: 06-04-2025 Comprehensive metabolic 2000 panel - Serum or Plasma Comprehensive metabolic panel Lab Routine Primary hypertension (CMS/HCC) Expected: 06/04/2024 (Approximate), Expires: 06/04/2025 [facility] Comment on above: Expected: 06/04/2024 (Approximate), Expires: 06/04/2025 Start: 06-04-2024 End: 06-04-2025 Lipid 1996 panel - Serum or Plasma Lipid panel Lab Routine Mixed hyperlipidemia (CMS/HCC) Expected: 06/04/2024 (Approximate), Expires: 06/04/2025 [facility] Comment on above: Expected: 06/04/2024 (Approximate), Expires: 06/04/2025 Start: 06-04-2024 End: 08-02-2025 MG Breast - bilateral Screening Bilateral screening mammogram Imaging Routine Encounter for screening mammogram for malignant neoplasm of breast Expected: 06/04/2024, Expires: 08/02/2025 [facility] Comment on above: Expected: 06/04/2024 , Expires: 08/02/2025 Start: 06-04-2024 End: 06-04-2025 Microalbumin/Creatinine panel in random Urine Microalbumin / creatinine urine ratio Lab Routine Primary hypertension (CMS/HCC) Expected: 06/04/2024 (Approximate), Expires: 06/04/2025 [facility] Work Phone: Comment on above: Expected: 06/04/2024 (Approximate), Expires: 06/04/2025 Start: 06-04-2024 End: 06-04-2024 Patient encounter procedure [facility] Comment on above: Arrived Start: 05-17-2024 Medicare Annual Well ness (AWV) Medicare Annual Wellness (AWV) [facility] Start: 02-21-2024 End: 02-21-2024 Patient encounter procedure 02/21/2024 9:30 AM EDT Office Visit [facility] [address] [place] [address] Sonu Connelly, JOSH [address] [place] [address] Arrived [facility] Comment on above: Arrived Start: 01-29-2024 Influenza vaccination Influenza Vacc ine (#1) [place] Start: 01-29-2024 Screening for malign ant neoplasm of breast Mammogram [facility] Start: 01-09-2024 End: 01-09-2024 Patient encounter procedure 01/09/2024 8:00 AM EDT Office Visit [facility] [address] [facility] [address] [place] [address] Richardson Rincon, DOMESTIC HOUSEKEEPER-NEUROPSYCHOLOGY MEDICAL CONSULTANT [address] [facility] [address] [place] [address] [facility] Start: 09-27-2023 End: 09-27-2023 Patient encounter procedure 09/27/2023 9:15 AM EDT Office Visit [facility] [address] [place] [phone] Shaikh Ramirez MD [address] [place] [address] [facility] Start: 07-11-2023 End: 07-11-2024 CBC panel - Blood by Automated count CBC Lab Routine Atrial fibrillation, unspecified type (CMS/HCC) Primary hypertension Expected: 07/11/2023 (Approximate), Expires: 07/11/2024 [facility] Service Area Work Phone: Comment on above: Expected: 07/11/2023 (Approximate), Expires: 07/11/2024 Start: 07-11-2023 End: 07-11-2024 Comprehensive metabolic 2000 panel - Serum or Plasma Comprehensive Metabolic Panel Lab Routine Atrial fibrillation, unspecified type (CMS/HCC) Primary hypertension Expected: 07/11/2023 (Approximate), Expires: 07/11/2024 [place] Work Phone: Comment on above: Expected: 07/11/2023 (Approximate), Expires: 07/11/2024 Start: 07-11-2023 End: 07-11-2024 Lipid 1996 panel - Serum or Plasma Lipid Panel Lab Routine Mixed hyperlipidemia Expected: 07/11/2023 (Approximate), Expires: 07/11/2024 [place] Work Phone: Comment on above: Expected: 07/11/2023 (Approximate), Expires: 07/11/2024 Start: 07-11-2023 End: 07-11-2023 Patient encounter procedure 07/11/2023 12:30 PM EST Office Visit [facility] [address] [facility] [address] [place] [address] Jolly Smith MD [address] [facility] [address] [place] [address] [facility] Start: 07-07-2023 End: 07-07-2023 Patient encounter procedure 07/07/2023 2:15 PM EST Appointment Helen Mckeon [address] [address] Helen Mckeon Start: 07-07-2023 End: 07-07-2023 Patient encounter procedure Helen Mckeon Start: 06-23-2023 End: 06-23-2024 CBC panel - Blood by Automated count CBC Lab Routine Hyperlipidemia, unspecified hyperlipidemia type Chest pain, unspecified type Primary hypertension Paroxysmal atrial 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 (CMS/HCC) Expected: 06/23/2023 (Approximate), Expires: 06/23/2024 [place] Work Phone: Comment on above: Expected: 06/23/2023 (Approximate), Expires: 06/23/2024 Start: 06-23-2023 End: 06-23-2024 Comprehensive metabolic 2000 panel - Serum or Plasma Comprehensive Metabolic Panel Lab Routine Hyperlipidemia, unspecified hyperlipidemia type Chest pain, unspecified type Primary hypertension Paroxysmal atrial 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 (CMS/HCC) Expected: 06/23/2023 (Approximate), Expires: 06/23/2024 [place] Work Phone: Comment on above: Expected: 06/23/2023 (Approximate), Expires: 06/23/2024 Start: 06-23-2023 End: 06-23-2024 Lipid 1996 panel - Serum or Plasma Lipid Panel Lab Routine Hyperlipidemia, unspecified hyperlipidemia type Chest pain, unspecified type Primary hypertension Paroxysmal atrial 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 (CMS/HCC) Expected: 06/23/2023 (Approximate), Expires: 06/23/2024 [place] Work Phone: Comment on above: Expected: 06/23/2023 (Approximate), Expires: 06/23/2024 Start: 06-23-2023 End: 06-23-2025 NM Heart Perfusion W stress and W radionuclide IV Nuclear Stress Test [facility] Routine Hypercoagulable state due to 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 (CMS/HCC) [facility] current use of anticoagulant therapy Hyperlipidemia, unspecified hyperlipidemia type Chest pain, unspecified type Primary hypertension Paroxysmal atrial 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 (CMS/HCC) Expected: 06/23/2023 (Approximate), Expires: 06/23/2025 [facility] Service Area Work Phone: Comment on above: Expected: 06/23/2023 (Approximate), Expires: 06/23/2025 Start: 06-23-2023 End: 06-23-2024 Thyrotropin [Units/volume] in Serum or Plasma Thyroid Stimulating Hormone Lab Routine Hyperlipidemia, unspecified hyperlipidemia type Chest pain, unspecified type Primary hypertension Paroxysmal atrial 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 (CMS/HCC) Expected: 06/23/2023 (Approximate), Expires: 06/23/2024 [place] Work Phone: Comment on above: Expected: 06/23/2023 (Approximate), Expires: 06/23/2024 Start: 06-23-2023 End: 06-23-2024 Thyroxine (T4) free [Mass/volume] in Serum or Plasma Thyroxine, Free Lab Routine Hyperlipidemia, unspecified hyperlipidemia type Chest pain, unspecified type Primary hypertension Paroxysmal atrial 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 (CMS/HCC) Expected: 06/23/2023 (Approximate), Expires: 06/23/2024 [place] Work Phone: Comment on above: Expected: 06/23/2023 (Approximate), Expires: 06/23/2024 Start: 06-23-2023 End: 06-23-2024 Triiodothyronine (T3) [Mass/volume] in Serum or Plasma Triiodothyronine, Total Lab Routine Hyperlipidemia, unspecified hyperlipidemia type Chest pain, unspecified type Primary hypertension Paroxysmal atrial 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 (CMS/HCC) Expected: 06/23/2023 (Approximate), Expires: 06/23/2024 [place] Work Phone: Comment on above: Expected: 06/23/2023 (Approximate), Expires: 06/23/2024 Start: 01-28-2023 COVID-19 Vaccine ( season) COVID-19 Vaccine ( season) [place] Start: 12-23-2021 [facility] Work Phone: Start: 12-23-2021 [facility] Work Phone: Start: 11-05-2021 [facility] Work Phone: Start: 01-06-2020 Pneumococcal Vaccine : 65+ Years (2 - PPSV23 or PCV20) Pneumococcal Vaccine: 65+ Years (2 - PPSV23 or PCV20) [place] Start: 01-06-2020 Pneumococcal Vaccine : 65+ Years (2 of 2 - PPSV23 or PCV20) Pneumococcal Vaccine: 65+ Years (2 of 2 - PPSV23 or PCV20) [place] Start: 2011 RSV patient s and/or patients aged 60+ years (1 - 1-dose 60+ series) RSV patients and/or patients aged 60+ years (1 - 1-dose 60+ series) [place] Start: 1991 Screening for malign ant neoplasm of breast Mammogram [place] Start: 09-10-1969 Diabetes mellitus screening Diabetes Screening [place] Start: 09-10-1969 [facility] Start: [facility] Lipid panel Lipid Panel [place] Start: 1951 Medicare Annual Well ness Visit Medicare Annual Wellness Visit (AWV) [place] Start: 1951 Screening for malign ant neoplasm of colon [place] Start: 1951 Screening for osteoporosis Bone Density Scan [place] Patient Education [facility] Work Phone: US Abdomen limited [facility] Immunizations Immunization Date Immunization Notes Care Provider Cristiane smith 02-09-2023 Influenza, Seasonal, Quadrivalent, Adjuvanted Generic Provider [facility] 02-09-2023 influenza virus vaccine, unspecified formulation Richardson Rincon DOMESTIC HOUSEKEEPER-NEUROPSYCHOLOGY MEDICAL CONSULTANT Work Phone: [place] Work Phone: 02-08-2022 Influenza, High-dose Seasonal, Quadrivalent, Preservative Free Generic Provider [facility] 12-15-2021 zoster vaccine recombinant Generic Provider [facility] 10-15-2021 zoster vaccine recombinant Generic Provider [facility] 08-28-2021 COVID-19 mRNA-1273 (Moderna) DO Gume Ziegler Work Phone: [facility] 08-28-2021 tetanus toxoid, reduced diphtheria toxoid, and acellular pertussis vaccine, adsorbed Generic Provider [facility] 04-22-2021 COVID-19 mRNA-1273 (Moderna) Gume Ziegler Work Phone: [facility] 03-11-2021 Kenalog -40 mg Dede Calve y Other [employer] Other 02-10-2021 Influenza, High-dose Seasonal, Quadrivalent, Preservative Free Generic Provider [facility] 09-25-2020 COVID-19 mRNA-1273 (Moderna) DO Ceron Toney Work Phone: [facility] 08-28-2020 COVID-19 mRNA-1273 (Moderna) Gume Ziegler Work Phone: [facility] 02-22-2020 influenza, high dose seasonal, preservative-free Generic Provider [facility] 12-31-2019 Kenalog -40 mg Dede Calve y Other [employer] Other 11-11-2019 pneumococcal conjugate vaccine, 13 valent Generic Provider [facility] 04-23-2019 Kenalog -40 mg Dede Calve y Other [employer] Other 02-24-2017 pneumococcal conjugate vaccine, 13 valent Generic Provider [facility] 03-09-2012 influenza virus vaccine, whole virus Sonu Connelly CORRECTIVE [employer]ER[employer]Y AIDE TEACHER Work Phone: [facility] 03-12-2011 influenza virus vaccine, whole virus Sonu Connelly CORRECTIVE THER[employer]Y AIDE TEACHER Work Phone: [facility] 03-19-2010 influenza virus vaccine, whole virus Sonu Connelly CORRECTIVE THERAPY AIDE TEACHER Work Phone: [facility] 03-21-2009 influenza virus vaccine, whole virus Sonu Connelly CORRECTIVE THERAPY AIDE TEACHER Work Phone: [facility] Payers Date Payer Category Payer Medicare (Managed Care) [employer] [place] VAL[place] [id number] 2024 Self-pay [id number] 2021 Medicaid [employer] MEDICARE A DVANTAGE [id number] 2016 Medicare [id number]. [id number] 1959 Medicare [id number] 2.16.840.1.972518.19 1950 Unknown [id number] 2.16.840.1.950694.3.579.2. 593 1950 Unknown [id number] 2.16.840.1.576313.3.579.2. 593 1950 Unknown [id number] 2.16.840.1.007521.3.579.2. 593 1950 Unknown [id number] 2.16.840.1.773187.3.579.2. 593 1950 Unknown [id number] 2.16.840.1.821944.3.579.2. 593 1950 Unknown [id number] 2.16.840.1.569108.3.579.2. 593 1950 Unknown [id number] 2.16.840.1.527922.3.579.2. 124 1950 Unknown [id number] 2.16.840.1.688517.3.579.2. 1245 1950 Unknown [id number] 2.840.1.485919.3.579.2. 1245 1951 Unknown [id number] 2..840.1.517853.3.579.2. 1245 1951 Unknown [id number] 2.840.1.096010.3.579.2. 1245 1951 Unknown [id number] 2.840.1.320461.3.579.2. 1243 1951 Unknown [id number] 2.840.1.144280.3.579.2. 1243 1951 Unknown [id number] 2.840.1.074848.3.579.2. 1258 1950 Unknown [id number] 2.16840.1.991520.3.579.2. 1258 1950 Unknown [id number] 2.16840.1.061283.3.579.2. 1259 Medicare [id number] 2.840.1.801266.19 Unknown [id number] 2.840.1.964057.19 Unknown HCAP/HFA/FAP Active [id number] Unknown [id number] 2.16.840.1.822346.3.579.2. 531 Unknown [id number] 2.16.840.1.818638.3.579.2. 531 Unknown [id number] 2.16.840.1.960912.3.579.2. 531 Social History Date Type Detail Facility Unknown if ever smoked Formerly [facility] [employer] Other Start: 06-23-2023 End: 02-21-2024 Sex Assigned At Formerly [facility] [employer] Other Start: 12-23-2021 End: 05-12-2024 Tobacco smoking status NHIS Smoker (finding) [facility] Start: 1950 Sex Assigned At Female F [facility] Start: 06-23-2023 End: 08-24-2024 Tobacco smoking status RIIS Smokes tobacco daily [place] History of tobacco use Cigarette Smoker [facility] Work Phone: Start: 06-23-2023 End: 02-21-2024 Cigarettes smoked current (pack per day) - Reported 0.3 [place] Work Phone: Start: 06-23-2023 End: 02-21-2024 Tobacco use and exposure Smokeless tobacco non-user [place] Work Phone: Start: 06-23-2023 End: 06-04-2024 Alcohol intake Lifetime non-drinker (finding) [place] Work Phone: Start: 1950 Sex Assigned At Not on file [facility] [place] Work Phone: Start: 06-13-2023 End: 08-24-2024 Exposure to SARS-CoV-2 (event) Not sure [place] Start: 06-01-2023 End: 02-21-2024 Tobacco smoking status NHIS Occasional tobacco smoker [facility] Start: 04-29-2023 Alcohol Comment caffeine: soda /pop , coffee [facility] History of tobacco use Passive smoker [facility] Start: 06-21-2024 End: 07-03-2024 Sex Patient sex unknown (finding) [facility] Start: 07-25-2024 Sex Female (finding) [facility] Goals Date Patient Goal Desired Activity /State Clinical Notes 03-11-2021 to 08-24-2024 Jolly Smith MD - 08/24/2024 1:30 PM EDTPatient InstructionsTelephone Encounter - Elizabeth Tatum - 07/04/2024 2:26 PM ESTTelephone Encounter - Elizabeth Tatum - 07/04/2024 2:26 PM ESTPatient Instructions Note Date & Type Note Facility 08-24-2024 History of Present illness Narrative Images from the original note were not included. Chief Complaint: Patient with 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, on high risk medication, long-term anticoagulation, presents for 1 year follow-up Subjective : Interval review of systems is negative for chest discomfort pressure tightness heaviness palpitations lightheadedness orthopnea paroxysmal nocturnal dyspnea dependent edema or claudication TIA or CVA type symptoms or bleeding diathesis Review of Systems she reports tingling sensation in her left arm, says it feels like she is in a space suit. Symptoms are not consistent with subclavian steal. Blood pressure is elevated in the office 144/86 recheck 140/80 but she says that few days ago her blood pressure was 119 systolic. No lightheadedness no falls no bleeding History so Far : Current every day smoker Varies depending on [...] today on Lopressor Initially identified May 2023 [facility] current use of anticoagulant therapy CHADS VASc 3 chronically 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 full dose Eliquis age 73, weight 64 kg Denies bleeding diatheses Objective Wt Readings from Last 3 Encounters: 08/24/24 65.5 kg (144 lb 6.4 oz) 01/09/24 64.9 kg (143 lb) 07/11/23 64.4 kg (142 lb) Vitals: 08/24/24 1320 08/24/24 1427 08/24/24 1428 BP: 146/84 144/86 140/80 BP Location: Right arm Right arm Right arm Patient Position: Sitting Sitting Sitting Pulse: 64 Weight: 65.5 kg (144 lb 6.4 oz) Height: 1.575 m (5' 2 ) Physical Exam: GENERAL APPEARANCE: in no acute distress. CHEST: Symmetric and non-tender. INTEGUMENT: Skin warm and dry HEENT: No gross abnormalities identified.No pallor or scleral icterus. NECK: Supple, no JVD, no bruit. NEURO/PSHCY: Alert and oriented x3; appropriate behavior and responses and responses LUNGS: Clear to auscultation bilaterally; normal respiratory effort. HEART: Rate and rhythm regular with no evident murmur; no gallop appreciated. ABDOMEN: Soft, non tender. MUSCULOSKELETAL: No gross deformities. EXTREMITIES: Warm There is no edema noted. Meds: Current Outpatient Medications Medication Instructions albuterol 90 mcg/actuation inhaler 2 puffs, Every 4 hours PRN alendronate (FOSAMAX) 70 mg, Once Weekly Anoro Ellipta 62.5-25 mcg/actuation blister with device 1 puff apixaban (ELIQUIS) 5 mg, oral, 2 times daily atorvastatin (LIPITOR) 10 mg, oral, Daily Calcium 500 With D 500 mg-10 mcg (400 unit) tablet 2 tablets, Every 12 hours fluticasone (Flonase) 50 mcg/actuation nasal spray 2 sprays, Daily losartan (COZAAR) 100 mg, oral, Daily metoprolol tartrate (LOPRESSOR) 25 mg, oral, 2 times daily pantoprazole (PROTONIX) 40 mg, 2 times daily pramipexole (MIRAPEX) 0.5 mg, Nightly Allergies Allergen Reactions Ciprofloxacin Unknown Codeine Unknown Metronidazole Unknown Penicillin G Unknown LABS: May 2024-hemoglobin 12.9 hematocrit 38.8 platelets 2 91,000 sodium 140 potassium 4.4 BUN 8 creatinine 0.77 GFR greater than 60 liver enzymes normal Reviewed all available pertinent laboratory data and diagnostic testing results that occurred after the last office visit with me Assessment: 1. 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 Primary hypertension 4. Chest pain, unspecified type 5. Mixed hyperlipidemia 6. Tingling of upper extremity 7. Current every day smoker 8. BMI 26.0-26.9,adult Clinical Decision Making: I assessed that the left arm tingling is probably neuropathic in nature. Patient to see primary MD regarding persistent symptoms As noted before she does not have symptoms or signs to suggest left subclavian steal No change in cardiac medications Discussed and encouraged nicotine abstinence Follow up : 1 year Labs ordered I,Jazlyn Hampton RN ' am scribing for, and in the presence of Dr. Jolly Smith MD, FACC. I, Dr. Jolly Smith MD, FACC, personally performed the services described in the documentation as scribed by Jazlyn Hampton RN in my presence, and confirm it is both accurate and complete. documented in this encounter [place] Work Phone: 08-24-2024 Instructions Jazlyn Rain RN - 08/24/2024 1:30 PM EDT Please bring all medicines, vitamins, and herbal supplements with you when you come to the office. Prescriptions will not be filled unless you are compliant with your follow up appointments or have a follow up appointment scheduled as per instruction of your physician. Refills should be requested at the time of your visit. BMI was above normal measurement. Current weight: 65.5 kg (144 lb 6.4 oz) Weight change since last visit (-) denotes wt loss 1.4 lbs Weight loss needed to achieve BMI 25: 8 Lbs Weight loss needed to achieve BMI 30: -19.3 Lbs Provided instructions on dietary changes Provided instructions on exercise. documented in this encounter [place] Work Phone: 08-07-2024 Note New patient here A-f ib patient is transferring to [place] from . Review of Systems Cardiovascular: Positive for chest pain (comes and goes with activity) and dyspnea on exertion (with exertion). Respiratory: Positive for cough (smoker, with activity and with bronchitis). Neurological: Positive for dizziness (with bending over and sometimes with standing). [facility] 08-07-2024 Note [place] Electrophysiology Consult Note [place] Cardiology - [facility] Reason for visit: Afib HPI: Cydney Villa is a 73 y.o. year old with past medical history of hypertension, reactive airway disease, osteoporosis who was previously seen Dr. Jolly Smith at [facility] for atrial fibrillation she was noted to have atypical chest pain. And previously had a documented episode of A-fib that was associated with chest discomfort she is otherwise an active person and. Initially this was diagnosed with episodes of palpitation and she found that this was symptom limiting and had AF . She was placed on Eliquis had a subsequent treadmill Myoview he that was done which was negative She had initially presented to Dr. Almaguer with palpitation and thereafter Holter monitor placed that revealed the presence of paroxysmal A-fib. There is a remote history of GI ulcer and has been on GI prophylaxis with no recurrence of GI bleed. PMH: Past Medical History: Diagnosis Date Abnormal ECG Arrhythmia Atrial fibrillation (CMS/HCC) Hyperlipidemia Hypertension PSH: History reviewed. No pertinent surgical history. SH: Social Determinants of Health Tobacco Use: High Risk (08/07/2024) Patient History Smoking Tobacco Use: Some Days Smokeless Tobacco Use: Unknown Passive Exposure: Not on file Alcohol Use: Not on file Financial Resource Strain: Not on file Food Insecurity: Not on file Transportation Needs: Not on file Physical Activity: Not on file Stress: Not on file Social Connections: Not on file Intimate Partner Violence: Unknown (08/15/2023) [place] Safety & Environment Fear of Current or Ex-Partner: Not on file Emotionally Abused: Not on file Physically Abused: Not on file Sexually Abused: Not on file Physically or Sexually Abused: Not on file Depression: Not at risk (02/21/2024) Received from [facility] PHQ-2 Patient Health Questionnaire-2 Score: 0 Housing Stability: Not on file Utilities: Not on file Health Literacy: Not on file Allergies: Allergies Allergen Reactions Codeine Other Morphine Dizziness Penicillins Rash Weight: 64.4kg Visit Vitals BP 119/66 (BP Location: Left arm, Patient Position: Sitting) Pulse 60 Ht 1.575 m (5' 2 ) Wt 64.4 kg (142 lb) SpO2 95% BMI 25.97 kg/m??? Smoking Status Some Days BSA 1.68 m??? Meds: Current Outpatient Medications on File Prior to Visit Medication Sig Dispense Refill albuterol 90 mcg/actuation inhaler Inhale 2 puffs every 4 (four) hours if needed. alendronate (Fosamax) 70 mg tablet Take 70 mg by mouth every 7 (seven) days. Anoro Ellipta 62.5-25 mcg/actuation blister with device inhale 1 puff daily atorvastatin (Lipitor) 10 mg tablet Take 10 mg by mouth in the morning. calcium carbonate-vitamin D3 (Oscal-500) 500 mg-10 mcg (400 unit) tablet Take 2 tablets by mouth every 12 (twelve) hours. cetirizine (ZyrTEC) 10 mg tablet Take 10 mg by mouth in the morning. Eliquis 5 mg tablet Take 5 mg by mouth in the morning and at bedtime. fluticasone (Flonase) 50 mcg/actuation nasal spray Administer 1 spray into each nostril in the morning. Shake gently. Before first use, prime pump. After use, clean tip and replace cap. metoprolol tartrate (Lopressor) 25 mg tablet Take 25 mg by mouth two times daily. Oyster Shell Calcium-Vit D3 500 mg-5 mcg (200 unit) tablet Take 1 tablet by mouth every 12 (twelve) hours. pantoprazole (ProtoNix) 40 mg EC tablet Take 40 mg by mouth before breakfast. Do not crush, chew, or split. pramipexole (Mirapex) 0.5 mg tablet Take 0.5 mg by mouth. predniSONE (Deltasone) 20 mg tablet TAKE 3 TABLETS BY MOUTH DAILY X3 DAYS, 2 TABLETS X3 DAYS, 1 TABLET X3 DAYS No current facility-administered medications on file prior to visit. ROS: Cardiovascular: Positive for chest pain (comes and goes with activity) and dyspnea on exertion (with exertion). Respiratory: Positive for cough (smoker, with activity and with bronchitis). Neurological: Positive for dizziness (with bending over and sometimes with standing). Physical Exam: Constitutional General Appearance: well-nourished, well-developed, appears stated age Level of Distress: comfortable Eyes JESUS Neck Neck: supple, trachea midline Carotid Arteries: bilateral normal upstroke, no bruits Jugular Veins: normal jugular venous pressure Thyroid: not enlarged Lungs Respiratory Effort: unlabored Chest Exam: normal curvature, no thoracic deformity Auscultation: clear, no wheezing, no rales, no rhonchi Cardiovascular Chest wall: Rate And Rhythm: regular Heart Sounds: normal S1, normal s2, no gallop Systolic Murmur: not heard Diastolic Murmur: not heard Extremities: no cyanosis, no edema, no peripheral signs of emboli Peripheral Pulses Radial Pulse: normal Abdomen Inspection and Palpation: soft, non distended, no bruit, non tender Neurologic Gait: normal gait Labs: @LABRESULTS@ No results (more content not included)... [facility] 07-04-2024 Telephone encounter Note Patient just had an endoscoopy and they want her to take it 2x's a day [facility] 07-04-2024 Miscellaneous Notes Patient just had an endoscoopy and they want her to take it 2x's a day documented in this encounter [facility] 07-03-2024 Procedure note [facility] enter 06-27-2024 Radiology Diagnostic study note [facility] [place] [address] Ultrasound Report Signed Patient: Cydney Villa MR#: [id number] : 1950 Acct:[id number] Age/Sex: 73 / F ADM Date: 5 Loc: Room: Type: [facility] Attending Dr: Jaime Paulino MD Ordering Provider: Jaime Paulino MD Date of Service: 06/27/24 US/US abdomen limited: R10.9 - Unspecified abdominal pain Copies to: Jaime Paulino MD~ LIMITED ABDOMINAL ULTRASOUND: CLINICAL HISTORY: Abdominal pain COMPARISON: None TECHNIQUE: Grayscale and color Doppler images of the right upper quadrant organswere obtained. FINDINGS: Pancreas: Visualized portions appear unremarkable. Liver: Unremarkable. Gallbladder: Removed. CBD: 4.8 mm US/US abdomen limited IMPRESSION: NO ACUTE PROCESS. . Impression dictated by: Vincenzo Lackey Jr., Porsche06/27/2024 9:35 AM Dictation Location: [place] [address] Tech: Loli Guerra Transcribed By: BEN 06/27/24934 Dictated By: Vincenzo Lackey Jr, DO 06/27/2434 Signed By: 06/27/2435 [facility] 06-04-2024 History of Present illness Narrative Associated [...] GLOBULIN RATIO 1.0 0.9 1.0 Resulting Agency [facility] Review of Systems Constitutional: Negative [...] Bilateral screening mammogram documented in this encounter [facility] 06-04-2024 Instructions Sonu Connelly NP - 06/04/2024 9:30 AM EST Have labs completed before next OV. Take all medications as prescribed. documented in this encounter [facility] 05-12-2024 Evaluation note Diagnosis Onset Date Resolution Pneumonia acute May 12, 2024 1:10pm Abdominal pain acute June 202024 12:58pm GERD (gastroesophageal reflux disease) acute June 20 12:58pm History of peptic ulcer acute June 20 12:58pm [facility] Work Phone: 1(941) 453-695509-24-2024 History of Present illness Narrative* Sonu Connelly NP - 02/21/2024 11:28 AM 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(s): Primary hypertension (CMS/HCC) Currently taking Metoprolol 25mg Losartan 100mg Checks BP at home; Averages are 114/80's Denies orthostatic changes, dizziness, cough, shortness of breath, swelling in extremities. Continue current regimen. Given BP log, encouraged pt to record BP and bring log back with them to next visit. * Sonu Connelly NP - 02/21/2024 11:27 AM 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(s): Hyperlipidemia (CMS/HCC) Currently taking Atorvastatin 10mg Denies any myalgias. Most recent Lipid Panel- WNL Continue current regimen. * Sonu Connelly NP - 02/21/2024 10:05 AM 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(s): Cigarette nicotine dependence without complication Current 1-2 cigarettes per day smoker. Patient counseled on smoking/tobacco cessation. Patient educated on harmful effects of smoking cigarettes/tobacco including increased risk of cardiovascular diseases, chronic lung disease and multiple cancers * Sonu Connelly NP - 02/21/2024 10:04 AM 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(s): GERD (gastroesophageal reflux disease) Currently taking Protonix 40 q12. Poorlyoorly controlled reflux, daily symptoms, acid taste in mouth. Complaining of epigastric pain after eating; Nausea/dry heaving; States pain has been ongoing for several years since cholystectomy; EGD within last 2 years -- no sig abnormality noted. Patient asked to stop using naproxen, work on smoking cessation. Referral sent to GI * Sonu Connelly NP - 02/21/2024 9:30 AM EDT Images from the original note [...] Neurological: Negative for dizziness, tremors, syncope, weakness, light- headedness and headaches. Psychiatric/Behavioral: Negative for decreased concentration and suicidal ideas. The patient is notnervous/anxious. Hematological: Does not bruise/bleed easily. Endocrine: Negative [...] pantoprazole (ProtoNix) 40 MG EC tablet Hyperlipidemia ([facility]/HCC) Currently taking Atorvastatin 10mg Denies any myalgias. Most recent Lipid Panel- WNL Continue current regimen. Chronic epigastric pain Relevant Orders Ambulatory referral to Gastroenterology Age-related osteoporosis without current pathological fracture ([facility]) Relevant Medications alendronate (Fosamax) 70 MG tablet Calcium Carb-Cholecalciferol (Oyster Shell Calcium w/D) 500-5 MG-MCG tablet documented in this encounterFreeman [facility] & Sports [id number] Instructions* Patient Instructions* Sonu Connelly NP - 02/21/2024 9:30 AM EDT Referral sent to GI- they will call you! 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 full dose Eliquis age 73, weight 64 kg Denies bleeding diatheses [place] Work Phone: 1(293) 269-997408-12-2024 Evaluation + Plan note* Assessment & Plan Note - BRYSON [place]os - 01/09/2024 11:42 AM 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(s): Paroxysmal atrial 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 (Multi) Regular ausculatory rate and rhythm in office today on Lopressor Initially identified May 2023 [place] Work Phone: 1(352) 511-922908-12-2024 Evaluation + Plan note* Assessment & Plan Note - BRYSON Lagos - 01/09/2024 11:42 AM 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(s): Hyperlipidemia Low intensity statin Most recent LDL 76, HDL 52 [place] Work Phone: 1([phone]) 635-793608-12-2024 Miscellaneous Notes* Assessment & Plan Note - BRYSON Lagos - 01/09/2024 11:42 AM 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(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 3 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 full dose Eliquis age 73, weight 64 kg Denies bleeding diatheses * Assessment & Plan Note - BRYSON [place]os - 01/09/2024 11:42 AM EDT Associated Problem(s): Paroxysmal atrial 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 (Multi) Regular ausculatory rate and rhythm in office today on Lopressor Initially identified May 2023 * Assessment & Plan Note - BRYSON Lagos - 01/09/2024 11:42 AM EDT Associated Problem(s): Hyperlipidemia Low intensity statin Most recent LDL 76, HDL 52 * Assessment & Plan Note - BRYSON Lagos - 01/09/2024 11:41 AM EDT Associated Problem(s): Primary hypertension Optimal in office * Assessment & Plan Note - BRYSON Lagos - 01/09/2024 11:41 AM EDT Associated Problem(s): Cardiac and Vasculature May 2023 MPI no ischemia, no infarct. May 2023 TTE LVEF 54% Left atrium normal MR none * Assessment & Plan Note - BRYSON [place]os - 01/09/2024 8:05 AM EDT Associated Problem(s): Current every day smoker Varies depending on activity Continued every day tobacco use. Have reviewed the negative cardiovascular impact of nicotine. Continues to decline pharmacological assistance. [place]: 1([phone]) 585-574808-12-2024 Evaluation + Plan note* Assessment & Plan Note - BRYSON Lagos - 01/09/2024 11:41 AM 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(s): Primary hypertension Optimal in office [place] Work Phone: [phone]) [phone] Evaluation + Plan note* Assessment & Plan Note - BRYSON Lgaos - 01/09/2024 11:41 AM 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(s): Cardiac and Vasculature May 2023 MPI no ischemia, no infarct. May 2023 TTE LVEF 54% Left atrium normal MR none [place] Work Phone: 1([phone]) 189-232108-12-2024 Evaluation + Plan note* Assessment & Plan Note - BRYSON Lagos - 01/09/2024 8:05 AM 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(s): Current every day smoker Varies depending on activity Continued every day tobacco use. Have reviewed the negative cardiovascular impact of nicotine. Continues to decline pharmacological assistance. [place] Work Phone: 1(430) 608-383008-12-2024 History of Present illness Narrative* BRYSON [place]os - 01/09/2024 8:00 AM EDT Chief Complaint Doing pretty good Reason for [...] presents to the office today with no voicedcardiovascular complaints. She remains aerobically active where she [...] today on Lopressor Initially identified May 2023 [facility] current use of anticoagulant therapy CHADS VASc 3 chronically 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 full dose Eliquis age 73, weight 64 kg Denies bleeding diatheses Plan: Through informed decision making process incorporating patients unique circumstances, the followingtreatment plan will be initiated: 1. Prescription drug [...] half of all adults smokers have quit. Weencourage you to write down all the reasons you should quit smoking and set a quit date for yourself. Ask us how we can help. You may also call [phone]-[phone] for free resources and assistance. Richardson Rincon MSN, DOMESTIC HOUSEKEEPER-NEUROPSYCHOLOGY MEDICAL CONSULTANT, PMHNP-[facility] Please excuse any errors in grammar or translation related to this dictation. Voice recognition software was utilized to prepare this document. documented in this [facility] Work Phone: 1(167) 676-849508-12-2024 Instructions* Patient Instructions* BRYSON Lagos - 01/09/2024 8:00 AM EDT [...] making process incorporating patients unique circumstances, the followingtreatment plan will be initiated: 1. Prescription drug [...] half of all adults smokers have quit. Weencourage you to write down all the reasons you should quit smoking and set a quit date for yourself. Ask us how we can help. You may also call [phone]-SZXQOnePageCRMNOW for free resources and assistance. documented in this [facility] Work Phone: 1(593) 704-990502-12-2024 History of Present illness Narrative* Jolly Smith MD - 07/11/2023 12:30 PM EST Patient was seen initially 06/23/2023 for atrial [...] platelets 2 60,000. Reviewed results of the [employer] Myoview. Objective Failed to redirect to the Timeline version of the XL Video SmartLink. 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 [facility] current use of anticoagulant therapy 2. Atrial [...] my direction and personally dictated by me. Ihave reviewed the chart and agree that the record accurately reflects my personal performance of the history, physical exam, discussion and plan. [facility] Work Phone: 1(796) 594-105302-12-2024 Instructions* Patient Instructions* Merry Wilkerson CMA - 07/11/2023 12:30 PM [...] time of your visit. documented in [facility] Work Phone: 1(860) 566-985501-25-2024 History of Present illness Narrative* Jolly Smith MD - 06/23/2023 11:15 AM EST Referred by for Establish Care and Atrial Fibrillation (Onset new afib) History Of Present Illness: Cydney Villa is a 72 y.o. female presenting with history of atrial fibrillation. Prior records reviewed, patient presented to Dr. Correa with palpitations. A Holter showed 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. 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 Her EKG shows pattern [...] please do not hesitate to call if furtherquestions arise, sincerely, Jolly Smith MD Provider Attestation - Scribe documentation All medical record entries made by the Scribe were at my direction and personally dictated by me. Ihmirta reviewed the chart and agree that the record accurately reflects my personal performance of the history, physical exam, discussion and plan. ANNA SALAS LPN Scribe Attestation By signing my name below, IAnna LPN , Scribe attest that this documentation has been prepared under the direction and in the presence of Jolly Smith MD. [facility] Work Phone: [phone]) 938-777301-25-2024 Instructions* Patient Instructions* Alex Hawley MA - 06/23/2023 11:15 AM [...] done in office today [facility] Work Phone: [phone]) 161-487506-26-2023 Evaluation note* Encounter Date Diagnosis Assessment Notes Treatment Notes Treatment Clinical Notes Oct, Acute idiopathic urticaria (ICD-10 - [...] sooner if significantly worsening or changing appearance. 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) [employer] Other Evaluation noteNo [facility] Other Evaluation note* Diagnosis Onset Date Resolution Status Abdominal pain acute Blood in stool [facility] Work Phone: Evaluation note* Diagnosis Atrial fibrillation, unspecified type (CMS/HCC) Current every day smoker Gastroesophageal reflux disease, unspecified whether esophagitis present Hypercoagulable state due to 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 (CMS/HCC) 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 Hyperlipidemia, unspecified hyperlipidemia type Chest pain, unspecified type Primary hypertension Unspecified essential hypertension Paroxysmal atrial 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 (CMS/HCC) Atrial fibrillation documented in this encounter [place] Work Phone: Evaluation note* Diagnosis 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- Primary Atrial fibrillation, unspecified type (CMS/HCC) Gastroesophageal reflux disease, unspecified whether esophagitis present Paroxysmal atrial 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 (CMS/HCC) Atrial fibrillation Primary hypertension Unspecified essential hypertension Mixed hyperlipidemia Hypercoagulable state due to 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 (CMS/HCC) Current every day smoker Encounter to discuss test results Other specified counseling documented in this encounter [place] Work Phone: Evaluation note* Diagnosis RLS (restless legs syndrome)- Primary Restless legs syndrome (RLS) Other emphysema (CMS/HCC) Other emphysema Irregularly irregular pulse rhythm Primary hypertension (CMS/HCC) Unspecified essential hypertension Osteopenia of multiple sites Hyperlipidemia, unspecified hyperlipidemia type (CMS/HCC) Intermittent palpitations Encounter for screening for lung cancer Cigarette nicotine dependence without complication New onset a-fib (CMS/HCC)- Primary Atrial fibrillation New onset a-fib ([facility]/HCC)- Primary Atrial fibrillation Primary hypertension ([facility]/HCC)- Primary Unspecified essential hypertension New onset a-fib (CMS/HCC) Atrial fibrillation Hyperlipidemia, unspecified hyperlipidemia type (CMS/HCC) RLS (restless legs syndrome) Restless legs syndrome (RLS) Paroxysmal atrial 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 (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- Primary Atrial fibrillation, unspecified type (Multi) Paroxysmal atrial 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 (Multi) Atrial fibrillation Primary hypertension Unspecified essential hypertension Mixed hyperlipidemia Current every day smoker documented in this encounter [place] Work Phone: Evaluation note* Diagnosis Primary hypertension (CMS/HCC)- Primary Unspecified essential hypertension Age-related osteoporosis without current pathological fracture (CMS/HCC) Gastroesophageal reflux disease without esophagitis Esophageal reflux Chronic epigastric pain Cigarette nicotine dependence without complication Other emphysema (CMS/HCC) Other emphysema Mixed hyperlipidemia (CMS/HCC) Mixed hyperlipidemia documented in this encounter [facility] HealthcareEvaluation note* Diagnosis RLS (restless legs [...] neoplasm of breast documented in this encounter [facility] HealthcareEvaluation note* Diagnosis RLS (restless legs [...] abnormal clinical finding documented in this encounter [facility] HealthcareEvaluation note* Diagnosis RLS (restless legs [...] screening mammogram for malignant neoplasm of breast Seasonal allergic rhinitis due to other allergic trigger documented in this encounter [facility] HealthcareEvaluation note* Diagnosis RLS (restless legs [...] emphysema (CMS/HCC) Other emphysema New onset a-fib (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- Primary Atrial fibrillation, unspecified type (Multi) Paroxysmal atrial 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 (Multi) Atrial fibrillation Primary hypertension Unspecified essential hypertension Mixed hyperlipidemia Current every day smoker Paroxysmal atrial 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 (Multi) Atrial fibrillation [facility] current use of anticoagulant therapy Primary hypertension Unspecified essential hypertension Mixed hyperlipidemia Tingling of upper extremity Current every day smoker BMI 26.0-26.9,adult documented in this encounter [facility] Work Phone: Evaluation note* Diagnosis RLS (restless [...] screening mammogram for malignant neoplasm of breast Other emphysema (CMS/HCC) Other emphysema Gastroesophageal reflux disease without esophagitis Esophageal reflux New onset a-fib (CMS/HCC) Atrial fibrillation Restless legs syndrome Restless legs syndrome (RLS) documented in [facility] encounter [facility] Narrative - Reported* Type Description Date Medical History GERD Medical History PUD Medical History hyperlipidemia Medical History diverticulosis Medical History colon polyps Surgical History HYSTERECTOMY Surgical History APPENDECTOMY Surgical History HEMRRHOIDECTOMY 01/16/21 Hospitalization History SEE SURGERIES [facility]ly [facility] [employer] Other Reason for referral (narrative)* Consultation (Routine) - Authorized Specialty Diagnoses / Procedures Referred By Contac t Referred To Contact Cardiology Diagnoses Atrial fibrillation, unspecified type (CMS/HCC) Paroxysmal atrial fibrillation (CMS/HCC) Primary hypertension Mixed hyperlipidemia Procedures Follow Up In Cardiology Jolly Smith MD [address] [facility] [address] [place] [address] Richardson Rincon, DOMESTIC HOUSEKEEPER-NEUROPSYCHOLOGY MEDICAL CONSULTANT [address] [facility] [address] [place] [address] Referral ID Status Reason Start Date Expiration Date V isits Requested Visits Authorized [id number] Authorized 07/11/2023 07/10/2024 1 1 * Consultation (Routine) - Authorized Specialty Diagnoses / Procedures Referred By Contac t Referred To Contact Cardiology Diagnoses Atrial fibrillation, unspecified type (CMS/HCC) Gastroesophageal reflux disease, unspecified whether esophagitis present Paroxysmal atrial fibrillation (CMS/HCC) Primary hypertension Mixed hyperlipidemia Procedures Follow Up In Cardiology Jolly Smith MD [address] [facility] [address] [place] [address] Jolly Smith MD [address] [facility] [address] [place] [address] Referral ID Status Reason Start Date Expiration Date V isits Requested Visits Authorized [id number] Authorized 07/11/2023 07/10/2024 1 1 [place] Work Phone: Rezuxb for referral (narrative)* Consultation (Routine) - Authorized Specialty Diagnoses / Procedures Referred By Contac t Referred To Contact Cardiology Diagnoses Atrial fibrillation, unspecified type (Multi) Procedures Follow Up In Cardiology Richardson Rincon, DOMESTIC HOUSEKEEPER-NEUROPSYCHOLOGY MEDICAL CONSULTANT [address] [facility] [address] [place] [address] Jolly Smith MD [address] [facility] [address] [place] [address] Referral ID Status Reason Start Date Expiration Date V isits Requested Visits Authorized [id number] Authorized 01/09/2024 01/08/2025 1 1 [place] Work Phone: Reason for referral (narrative)* Consultation (Routine) - Authorized Specialty Diagnoses / Procedures Referred By Love santiago Referred To Contact Gastroenterology Diagnoses Chronic epigastric pain Procedures MO OFFICE/OUTPATIENT [facility] MDM 60 MINUTES Sonu Connelly NP [address] [place] [address] Soledad Jeffries DO [address] [facility] [address] [place] [address] Referral ID Status Reason Start Date Expiration Date Visits Requested Visits Authorized [id number] Authorized Specialty Services Required 02/21/2024 08/19/2024 1 1 [facility] Chief Complaint and Reason for Visit Chief Complaint Blood in Stool Blood in Stool Rectal Bleeding, Hemorrhoids Rectal Bleeding, Hemorrhoids Rectal Bleeding, Hemorrhoids Reason for Visit Abdominal pain Blood in stool Chief Complaint Admit Date Cough, congestion, sore throat, earache May 12, 2024 1:10pm Referred by Nadia Connelly: chronic epiga stric pain June 20, 2024 12:58pm R10.9 June 20, 2024 1 :43pm Reason for Visit Admit Date Pneumonia May 12, 2024 1:10pm Abdominal pain June 20, 2024 1 2:58pm GERD (gastroesophageal reflux disease) J anuary 2024 12:58pm History of peptic ulcer June 20 12:58pm Chief Complaint Admit Date Cough, congestion, sore throat, earache May 12, 2024 1:10pm Referred by Nadia Connelly: chronic epiga stric pain June 20, 2024 12:58pm R10.9 June 20, 2024 1 :43pm R10.9 June 27, 2024 8 :27am Chief Complaint Admit Date Cough, congestion, sore throat, earache May 12, 2024 1:10pm Referred by Nadia Connelly: chronic epiga stric pain June 20, 2024 12:58pm R10.9 June 20, 2024 1 :43pm R10.9 June 27, 2024 8 :27am ab pain and gerd July 03, 2024 1 2:00pm ab pain and gerd July 03, 2024 2 :11pm Chief Complaint Admit Date Cough, congestion, sore throat, earache May 12, 2024 1:10pm Referred by Nadia Connelly: chronic epiga stric pain June 20, 2024 12:58pm R10.9 June 20, 2024 1 :43pm R10.9 June 27, 2024 8 :27am ab pain and gerd July 03, 2024 1 2:00pm ab pain and gerd July 03, 2024 2 :11pm follow up/EGD July 25, 2024 2:17pm Family History No Family History Records Found Relationship Condition Age at Onset Recorded Date/T ramesh Not Specified Diabetes mellitus Unknown grandparent Diabetes mellitus Unknown grandparent Hepatic cirrhosis Unknown family member Malignant neoplasm Unknown Relationship Condition Age at Onset Recorded Date/T ramesh mother Diabetes mellitus Unknown grandparent Diabetes mellitus Unknown grandparent Hepatic cirrhosis Unknown family member Malignant neoplasm Unknown brother Unknown father Unknown Unknown Relationship Condition Age at Onset Recorded Date/T ramesh mother Diabetes mellitus Unknown Unknown grandparent Diabetes mellitus Unknown grandparent Hepatic cirrhosis Unknown family member Malignant neoplasm Unknown brother Unknown father Unknown Advance Directives No Advanced Directives Records Found Advance Directive Response Recorded Date/ Time Advance Directives No December 16 4:35pm Advance Directive Response Recorded Date/ Time Advance Directives No December 16 3:35pm Summary Purpose Reason for Referral Specialty Diagnoses / Procedures Referred By Love t Referred To Contact Cardiology Diagnoses Hypercoagulable state due to 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 (CMS/HCC) 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 Hyperlipidemia, unspecified hyperlipidemia type Chest pain, unspecified type Primary hypertension Paroxysmal atrial fibrillation (CMS/HCC) Procedures Nuclear Stress Test MO CV STRS TST XERS&/OR RX CONT ECG W/SI&R MO CV STRS TST XERS&/OR RX CONT ECG W/O I&R MO CV STRS TST XERS&/OR RX CONT ECG TRCG ONLY MO CV STRS TST XERS&/OR RX CONT ECG I&R ONLY CHG MYOCARDIAL SPECT MULTIPLE STUDIES Jolly Smith MD [address] [facility] [address] [address] Referral ID Status Reason Start Date Expiration Date Visits Requested Visits Authorized [id number] Pending Review Perform Procedure 06/23/2023 06/22/2024 5 5 Specialty Diagnoses / Procedures Referred By Contac t Referred To Contact Diagnoses Atrial fibrillation, unspecified type (CMS/HCC) Procedures ECG 12 Lead Jolly Smith MD [address] [place] [address] Referral ID Status Reason Start Date Expiration Date V isits Requested Visits Authorized [id number] Authorized 06/23/2023 06/22/2024 1 1 Specialty Diagnoses / Procedures Referred By Contac t Referred To Contact Cardiology Diagnoses Atrial fibrillation, unspecified type (CMS/HCC) Gastroesophageal reflux disease, unspecified whether esophagitis present Procedures Follow Up In Cardiology Jolly Smith MD [address] [place] [address] Jolly Smith MD [address] [place] [address] Referral ID Status Reason Start Date Expiration Date V isits Requested Visits Authorized [id number] Authorized 06/23/2023 06/22/2024 1 1 Additional Source Comments REASON FOR VISIT (unrecogniz ed section and content) Reason Comments Establish Care Atrial Fibrillation Onset new afib Specialty Diagnoses / Procedures Referred By Contac t Referred To Contact Diagnoses Atrial fibrillation, unspecified type (CMS/HCC) Procedures ECG 12 Lead Jolly Smith MD [address] [place] [address] Referral ID Status Reason Start Date Expiration Date V isits Requested Visits Authorized [id number] Authorized 06/23/2023 06/22/2024 1 1 Specialty Diagnoses / Procedures Referred By Contac t Referred To Contact Cardiology Diagnoses Hypercoagulable state due to 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 (CMS/HCC) 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 Hyperlipidemia, unspecified hyperlipidemia type Chest pain, unspecified type Primary hypertension Paroxysmal atrial fibrillation (CMS/HCC) Procedures Nuclear Stress Test MO CV STRS TST XERS&/OR RX CONT ECG W/SI&R MO CV STRS TST XERS&/OR RX CONT ECG W/O I&R MO CV STRS TST XERS&/OR RX CONT ECG TRCG ONLY MO CV STRS TST XERS&/OR RX CONT ECG I&R ONLY CHG MYOCARDIAL SPECT MULTIPLE STUDIES Jolly Smith MD [address] [facility] [address] [place] [address] Referral ID Status Reason Start Date Expiration Date Visits Requested Visits Authorized [id number] Authorized Perform Procedure 06/23/2023 06/22/2024 5 5 Reason Comments Follow-up Stress results Specialty Diagnoses / Procedures Referred By Contac t Referred To Contact Cardiology Diagnoses Atrial fibrillation, unspecified type (CMS/HCC) Gastroesophageal reflux disease, unspecified whether esophagitis present Procedures Follow Up In Cardiology Jolly Smith MD [address] [facility] [address] [place] [address] Jolly Smith MD [address] [facility] [address] [place] [address] Referral ID Status Reason Start Date Expiration Date V isits Requested Visits Authorized [id number] Authorized 06/23/2023 06/22/2024 1 1 Reason Comments Med Change Request Reason Comments Follow-up 6 months Specialty Diagnoses / Procedures Referred By Contac t Referred To Contact Cardiology Diagnoses Atrial fibrillation, unspecified type (Multi) Gastroesophageal reflux disease, unspecified whether esophagitis present Paroxysmal atrial fibrillation (Multi) Primary hypertension Mixed hyperlipidemia Procedures Follow Up In Cardiology Jolly Smith MD [address] [place] [address] [address] [place] [address] Jolly Smith MD [address] [place] [address] [address] [place] [address] Referral ID Status Reason Start Date Expiration Date V isits Requested Visits Authorized [id number] Authorized 07/11/2023 07/10/2024 1 1 Reason Comments Follow-up Reason Comments Hypertension Reason Onset Date Comments Med Refill 09/03/2024 Reason Onset Date Comments Med Refill 10/01/2024 Care Teams (unrecognized sec tion and content) Team Status: Inactive Member Role Status Dates Shaikh Ashley MD Primary Care Provider Active Gabriel Qiu DO Attending Provider Active Team Status: Inactive Member Role Status Dates Gume Ziegler DO Attending Provider Active Shaikh Ashley MD Primary Care Provider Active Team Status: Active Member Role Status Dates Shaikh Ashley MD Primary Care Provider Active Senior Underwriting Assistant Relationship Specialty Start Date End Date Shaikh Ramirez MD [address] [place] [address] PCP - General Internal Medicine 06/03/23 Senior Underwriting Assistant Relationship Specialty Start Date End Date Shaikh Ramirez MD [address] [place] [address] PCP - General Internal Medicine 06/03/23 Senior Underwriting Assistant Relationship Specialty Start Date End Date Shaikh Ramirez MD [address] [place] [address] PCP - General Internal Medicine 06/03/23 Senior Underwriting Assistant Relationship Specialty Start Date End Date Shaikh Ramirez MD PCP - General Internal Medicine 06/03/23 Senior Underwriting Assistant Relationship Specialty Start Date End Date Shaikh Ramirez MD [address] [place] [address] PCP - General Internal Medicine 06/29/23 Senior Underwriting Assistant Relationship Specialty Start Date End Date Rocky Gupta MD [address] [place] [address] PCP - General Family Medicine 02/07/24 Sonu Connelly NP [address] [place] [address] Nurse Practitioner Family Medicine 02/07/24 Senior Underwriting Assistant Relationship Specialty Start Date End Date Shaikh Ramirez MD PCP - General Internal Medicine 06/03/23 Senior Underwriting Assistant Relationship Specialty Start Date End Date Rocky Gupta MD [address] [place] [phone] PCP - General Family Medicine 02/07/24 Sonu Connelly NP [address] [place] [address] Nurse Practitioner Family Medicine 02/07/24 Senior Underwriting Assistant Relationship Specialty Start Date End Date Rocky Gupta MD [address] [place] [address] PCP - General Family Medicine 02/07/24 Sonu Connelly NP [address] [place] [address] Nurse Practitioner Family Medicine 02/07/24 Senior Underwriting Assistant Relationship Specialty Start Date End Date Rocky Gupta MD [address] [place] [address] PCP - General Family Medicine 02/07/24 Sonu Connelly NP [address] [place] [address] Nurse Practitioner Family Medicine 02/07/24 Senior Underwriting Assistant Relationship Specialty Start Date End Date Rocky Gupta MD [address] [place] [address] PCP - General Family Medicine 02/07/24 Sonu Connelly NP [address] [place] [address] Nurse Practitioner Family Medicine 02/07/24 Senior Underwriting Assistant Relationship Specialty Start Date End Date Rocky Gupta MD [address] [place] [address] PCP - General Family Medicine 02/07/24 Sonu Connelly NP [address] [place] [address] Nurse Practitioner Family Medicine 02/07/24 Senior Underwriting Assistant Relationship Specialty Start Date End Date Rocky Gupta MD [address] [place] [address] PCP - General Family Medicine 02/07/24 Sonu Connelly NP [address] [place] [address] Nurse Practitioner Family Medicine 02/07/24 Team Status: Active Member Role Status Dates Sonu Connelly CORRECTIVE THERAPY AIDE TEACHER-C Primary Care Provider Ac tive Team Status: Inactive Member Role Status Dates Sonu Connelly CORRECTIVE THERAPY AIDE TEACHER-C Primary Care Provider Ac tive Start: May 12, 2024 End: May 12, 2024 BEULAH Lawson RN CORRECTIVE THERAPY AIDE TEACHER-C Attending Provider Active Start: April End: May 12, 2024 Team Status: Inactive Member Role Status Dates Jaime Paulino MD Attending Provider Active S tart: June 20, 2024 End: June 20, 2024 Sonu Connelly CORRECTIVE THERAPY AIDE TEACHER-C Primary Care Provider Ac tive Start: June 20, 2024 End: June 20, 2024 Team Status: Inactive Member Role Status Dates Snou Connelly CORRECTIVE THERAPY AIDE TEACHER-C Primary Care Provider Ac tive Start: June 20, 2024 End: June 20, 2024 Jaime Paulino MD Attending Provider Active S tart: June 20, 2024 End: June 20, 2024 Senior Underwriting Assistant Relationship Specialty Start Date End Date Rocky Gupta MD [address] [place] [address] PCP - General Family Medicine 02/07/24 Sonu Connelly NP [address] [place] [address] Nurse Practitioner Family Medicine 02/07/24 Team Status: Inactive Member Role Status Dates Sonu Connelly CORRECTIVE THERAPY AIDE TEACHER-C Primary Care Provider Ac tive Start: June 27, 2024 End: June 27, 2024 Jaime Paulino MD Attending Provider Active S tart: June 27, 2024 End: June 27, 2024 Team Status: Inactive Member Role Status Dates RAHAT MackenzieC Primary Care Provider Ac tive Start: July 03, 2024 End: July 03, 2024 Jaime Paulino MD Attending Provider Active S tart: July 03, 2024 End: July 03, 2024 Team Status: Active Member Role Status Dates RAHAT MackenzieC Primary Care Provider Active Start: June Jaime Paulino MD Attending Provider, Other Provider Active Start: July 03, 2024 Senior Underwriting Assistant Relationship Specialty Start Date End Date Rocky Gupta MD [address] [place] [id number] PCP - General Family Medicine 02/07/24 Sonu Connelly NP [address] [place] [address] Nurse Practitioner Family Medicine 02/07/24 Team Status: Inactive Member Role Status Dates RAHAT MackenzieC Primary Care Provider Ac tive Start: July 25, 2024 End: July 25, 2024 Dada Guerra APRN Attending Provider Active Start: July 25, 2024 End: July 25, 2024 Senior Underwriting Assistant Relationship Specialty Start Date End Date Shaikh Ramirez MD PCP - General Internal Medicine 06/03/23 Senior Underwriting Assistant Relationship Specialty Start Date End Date Rocky Gupta MD [address] [place] [phone] PCP - General Family Medicine 02/07/24 Sonu Connelly NP [address] [place] [phone] Nurse Practitioner Family Medicine 02/07/24 Senior Underwriting Assistant Relationship Specialty Start Date End Date Rocky Gupta MD [address] [place] [address] PCP - General Family Medicine 02/07/24 Sonu Connelly NP [address] [place] [address] Nurse Practitioner Family Medicine 02/07/24 INFORMATION SOURCE (unrecogn ized section and content) DATE CREATED AUTHOR 04/12/2022 [facility] DATE CREATED AUTHOR AUTHOR'S ORGANIZ ATION 03/25/2023 [facility] DATE CREATED AUTHOR AUTHOR'S ORGANIZ ATION 03/28/2024 [facility] DATE CREATED AUTHOR AUTHOR'S ORGANIZ ATION 07/14/2024 [facility] DATE CREATED AUTHOR AUTHOR'S ORGANIZ ATION 09/03/2024 [facility] DATE CREATED AUTHOR AUTHOR'S ORGANIZ ATION 10/24/2024 [facility] DATE CREATED AUTHOR AUTHOR'S ORGANIZ ATION 10/25/2024 [facility] Goals (unrecognized section and content) Goals may be documented in a n alternate section FOR RECORDS PERTAINING TO PATIENTS WHO ARE [...] BE BASED ON THE PRIMARY CLINICAL RECORDS. [employer] provides no warranty or guarantee of the accuracy or completeness of information in this document.
== END 2024-10-31 08:43 | disposition home or self-care (01) ==
PROVIDERS: Visit Provider Nurse Practitioner
DX: M81.0 Age-related osteoporosis without current pathological fracture (principal); F17.210 Nicotine dependence, cigarettes, uncomplicated; Z12.2 Encounter for screening for malignant neoplasm of respiratory organs; J44.9 Chronic obstructive pulmonary disease, unspecified; M85.80 Other specified disorders of bone density and structure, unspecified site
CPT/HCPCS: 71271; 77080